=== PATIENT | male | born 1965 | race Caucasian/White ===

== ENCOUNTER 2021-11-07 19:48 | Inpatient (IN) | payer OTHER, SELFPAY ==
--- NOTE | ~2021-11-07 | CT_ITS ---
EXAMINATION: CT HEAD WITHOUT CONTRAST CLINICAL INFORMATION: Status post fall backwards. COMPARISON: None TECHNIQUE: Contiguous axial imaging was performed from the skull base to vertex without intravenous administration of contrast. This CT examination was performed using dose optimization techniques as appropriate, variously including the following: *Automated exposure control *Adjustment of mA and/or kV according to patient size (this includes techniques or standardized protocols for targeted exams where dose is matched to indication/reason for exam; i.e. extremities or head) *Use of iterative reconstruction technique DLP: 770 mGy-cm FINDINGS: There is no evidence of acute intracranial hemorrhage or territorial infarction. No abnormal mass effect or midline shift is seen. Patten to white matter differentiation is well preserved. No extra-axial fluid collections are identified. The ventricles are normal in size. There is no abnormal attenuation within the brain parenchyma. The osseous structures and soft tissues are normal. The mastoid air cells are well aerated. Mild maxillary sinus mucosal thickening noted. CT/CT head/brain wo con IMPRESSION: No acute intracranial pathology.
--- NOTE | ~2021-11-07 | XR_ITS ---
EXAMINATION: XR HIP, RIGHT CLINICAL INFORMATION: Pain, fall. COMPARISON: None TECHNIQUE: Two views of the right hip. FINDINGS: No evidence of acute fractures or malalignment. Mild degenerative changes in both hips with joint space narrowing, subcortical sclerosis and osteophytes. Pelvic phleboliths. No unexpected radiopaque foreign bodies. XR/XR hip RT min 2V IMPRESSION: No acute fractures or malalignment.
--- NOTE | ~2021-11-07 | XR_ITS ---
EXAMINATION: XR CERVICAL SPINE CLINICAL INFORMATION: Pain. Question fall. COMPARISON: None TECHNIQUE: 3 views of the cervical spine were obtained. FINDINGS: There are no prevertebral soft tissue or bony abnormalities demonstrated. No compression fractures or subluxations are identified. Alignment is maintained at the atlanto-axial articulation. The disc spaces are preserved. Small multilevel endplate osteophytes.. The prevertebral soft tissues are normal. The foramina are patent. XR/XR cervical spine 3V IMPRESSION: No fracture or malalignment. Mild degenerative changes.
--- NOTE | ~2021-11-07 | XR_ITS ---
EXAMINATION: X-RAY LEFT SHOULDER X-RAY LEFT HUMERUS X-RAY LEFT FOREARM CLINICAL INFORMATION: Pain, fall. COMPARISON: None. TECHNIQUE: 3 views of the left shoulder. 2 views of the left humerus. 2 views of the left forearm. FINDINGS: Left shoulder: No acute fractures or malalignment. The acromioclavicular joint is maintained. The coracohumeral interval is within normal limits. Mild degenerative osteoarthritis of the acromioclavicular joint and small enthesophytes at the insertion site of the supraspinatus muscle. Left humerus: No acute fractures or malalignment. Left forearm: No acute fractures or malalignment. Degenerative osteoarthritis of the radiocarpal joint and first carpometacarpal articulation. No unexpected foreign bodies. XR/XR humerus LT IMPRESSION: No acute fractures or malalignment within the imaged left upper extremity.
--- NOTE | ~2021-11-07 | MR_ITS ---
MR BRAIN WITHOUT AND WITH CONTRAST CLINICAL INFORMATION: Cognitive decline. Fogginess and weakness. COMPARISON: Head CT 12/22/2021. TECHNIQUE: Multiplanar, multisequence MRI of the brain was obtained before and after the intravenous administration of 10 mL Gadavist. FINDINGS: There is no pathologic intracranial enhancement. There is mild chronic microangiopathy. There is no hydrocephalus, extra-axial surface collection, or herniation. The major flow voids at the skull base are preserved. There is no acute infarct on diffusion-weighted imaging. There is no intracranial hemorrhage on the gradient recalled echo acquisition. The midline structures are normal. The cerebellar tonsils are normally positioned. The cerebellum and brainstem are normal. The craniocervical junction is normal. Osseous marrow signal intensity is homogenous. The visualized soft tissues are unremarkable. Mild mucosal thickening within the right maxillary sinus and left maxillary sinus. Small retention cysts within the left maxillary sinus and mild mucosal thickening within the ethmoid air cells bilaterally. MR/MR head/brain wo/w con IMPRESSION: No acute intracranial findings. No acute infarcts. There is mild chronic microangiopathy. No pathologic enhancement.
--- NOTE | ~2021-11-07 | XR_ITS ---
EXAMINATION: XR FOOT, LEFT CLINICAL INFORMATION: Unable to walk due to pain. Edema. COMPARISON: None TECHNIQUE: AP, lateral, and oblique views of the left foot. FINDINGS: There is no evidence of acute fracture. No malalignment. Joint spaces are maintained. No ankle joint effusion. The soft tissues appear unremarkable. Tiny hypertrophic spurring of the Achilles insertion to the calcaneus. XR/XR foot LT 2V IMPRESSION: Tiny Achilles heel spur. Otherwise unremarkable appearance of the left foot.
--- NOTE | ~2021-11-07 | XR_ITS ---
EXAMINATION: XR HAND, LEFT CLINICAL INFORMATION: Evaluate for foreign body COMPARISON: None TECHNIQUE: PA, lateral, and oblique views of the left hand. FINDINGS: No soft tissue foreign body is seen. There may be evidence of old trauma to the distal tuft of the second finger. No acute fracture or dislocation is seen. Joint spaces are normal. XR/XR hand LT 2V IMPRESSION: No soft tissue foreign body seen.
--- NOTE | ~2021-11-07 | FL_ITS ---
EXAMINATION: FL GUIDED LUMBAR PUNCTURE CLINICAL INFORMATION: Atypical neural and psychiatric symptoms. COMPARISON: None TECHNIQUE: Following explaining fluoroscopy-guided lumbar puncture procedure, benefits and risk, a written consent was obtained. Patient was placed prone on fluoroscopy table and low back area was cleaned and draped in usual sterile manner. 1% lidocaine was injected overlying the L4-L5 disc level. A 22-gauge 3.5 inch needle was inserted from the skin intrathecally at the L4-L5 disc level. After observing fluid return, patient was placed in left lateral decubitus view and opening CSF pressure was obtained. Subsequently CSF was collected in 4 test tubes. Stylet was reintroduced into the needle and needle withdrawn. Complete hemostasis achieved at puncture site. Sterile Band-Aid applied at the puncture site. Patient tolerated procedure extremely well. FINDINGS: On preliminary PA and lateral views of lumbar spine, there is maintained lumbar lordosis. The vertebral heights, alignment and disc heights are normal. The opening CSF pressure is 5 cm of water. Approximately 10 mL of clear CSF fluid was collected in 4 test tubes and sent to lab. FLUOROSCOPY TIME: 0.9 minutes DOSE AREA PRODUCT: 13.614 uGy-m2 (microgray-meter squared) FL/FL guided lumbar puncture LP IMPRESSION: Successful ultrasound-guided lumbar puncture performed without immediate complications.
--- NOTE | ~2021-11-07 | XR_ITS ---
EXAMINATION: X-RAY LEFT SHOULDER X-RAY LEFT HUMERUS X-RAY LEFT FOREARM CLINICAL INFORMATION: Pain, fall. COMPARISON: None. TECHNIQUE: 3 views of the left shoulder. 2 views of the left humerus. 2 views of the left forearm. FINDINGS: Left shoulder: No acute fractures or malalignment. The acromioclavicular joint is maintained. The coracohumeral interval is within normal limits. Mild degenerative osteoarthritis of the acromioclavicular joint and small enthesophytes at the insertion site of the supraspinatus muscle. Left humerus: No acute fractures or malalignment. Left forearm: No acute fractures or malalignment. Degenerative osteoarthritis of the radiocarpal joint and first carpometacarpal articulation. No unexpected foreign bodies. XR/XR forearm LT 2V IMPRESSION: No acute fractures or malalignment within the imaged left upper extremity.
--- NOTE | ~2021-11-07 | FL_ITS ---
EXAMINATION: FL BARIUM SWALLOW CLINICAL INFORMATION: Difficulty swallowing. Dysphagia and choking sensation. COMPARISON: None TECHNIQUE: Barium swallow examination is performed using fluoroscopic evaluation in addition to multiple fluoroscopic spot views. The patient is imaged both upright and prone and using both thick and thin sulfate along with effervescent granules. Fluoroscopy time: 3.1 minutes DAP: 13.341 Gycm2 Images: 60 FINDINGS: Following oral administration of thick barium, thin barium and barium coated turkey there is normal propagation of bolus from the oral cavity through the pharynx, esophagus into stomach without any evidence of laryngeal penetration or aspiration. There is no obstruction either. There is no extrinsic infarction. There are occasional secondary and tertiary peristalsis seen with solid food. The gastroesophageal junction is patent. FL/FL barium swallow IMPRESSION: Unremarkable barium swallow in upright and supine position. Occasional secondary and tertiary peristalsis seen in mid and distal esophagus with solid foot but no obstruction..
--- NOTE | ~2021-11-07 | XR_ITS ---
EXAMINATION: X-RAY LEFT SHOULDER X-RAY LEFT HUMERUS X-RAY LEFT FOREARM CLINICAL INFORMATION: Pain, fall. COMPARISON: None. TECHNIQUE: 3 views of the left shoulder. 2 views of the left humerus. 2 views of the left forearm. FINDINGS: Left shoulder: No acute fractures or malalignment. The acromioclavicular joint is maintained. The coracohumeral interval is within normal limits. Mild degenerative osteoarthritis of the acromioclavicular joint and small enthesophytes at the insertion site of the supraspinatus muscle. Left humerus: No acute fractures or malalignment. Left forearm: No acute fractures or malalignment. Degenerative osteoarthritis of the radiocarpal joint and first carpometacarpal articulation. No unexpected foreign bodies. XR/XR shoulder LT min 2V IMPRESSION: No acute fractures or malalignment within the imaged left upper extremity.
[2021-11-07 21:18] VITALS: BP 110/75; PULSE 118; RESP 18; TEMP 37.2; O2SAT 97
--- NOTE | 2021-11-08 01:11 | PC.ADMIT ---
Patient Gerry Guido is admitted to [facility] at 21:01 on a Section 12B as a Direct Admit from [facility]. Patient was initially presented with a CV in [facility], but refused to sign to due confusion and paranoid thought content. Additionally, Patient was unable to sign admission paperwork and releases due to the same. Per [facility] Crisis report, Gerry initially presented to [facility] ED after receiving a call that he had a positive blood culture after being discharged from [facility]. He was medically admitted on 10/29/21. Gerry was being followed by [facility] due to anxiety, loss of appetite and irrational thoughts. Per [facility], Gerry presents from depressed, barely able to formulate a thought (Yesterday) to [place] (Today). Gerry's reported that his symptoms began about 3 months ago when he turned 56, the age at which his mother was diagnosed with [esophageal cancer] Gerry refused to follow through with recommended endoscopy, what if I had cancer? 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 Patient was seen three times at [facility] due to the wound on Left Hand, Index Finger. [facility] reports note Patient was initially admitted to the hospital 10/26/21 because of left index finger infection. Patient worked with his car without gloves last week, afterwards noticed a blister on his left index finger. The blister was initially drained in the ER 10/25/21. Patient then had I&D in the OR, which found the lesion was a superficial abscess. Patient was discharged yesterday with blood culture suggesting contaminant after 48 hours. However, blood culture resulted came back positive for Moraxella Catarrhalis. Patient was called by his attending physician, Dr. Gannon, to come back for further evaluation and treatment and readmitted again on October 29, 2021. Positive blood culture growing Moraxella as well as Group B strep and Coag Negative Staph in a Wound to Patient's Left Index Finger. Initially placed on IV Ceftriaxone but then transitioned to oral augmentin 875mg BID for a total of 14 days (Last Day 11/12/21). [facility] Dressing Recommendations: Cleanse with NSS, Cover with adaptic, covered with aquacel ag, covered with 2x2, wrap with Kerlix. Change Q48 and PRN. Additional [facility] notes: Patient is very vague in his complaints, he denies fever chills night sweats. Complains that finger still feels sore and tender to palpation. Main complaint inability to swallow solid food, he is also unable to swallow any pills including antibiotics he was giving. He was supposed to have evaluation for his dysphagia back in September but did not go. He also reports 70 pound weight loss since the summer. [facility] Speech Evaluation Notes: Pt. with no overt/subtle s/s aspiration, no globus/sternal pressure with regular/thin trials, etc... Recommend GI consult and possible UGI series to further assess severe GI issues reported, 70 lb. weight loss. Upright for 30-45 minutes after meals. Patient is placed on 15 minute checks and oriented to unit.
[2021-11-08] MEDS: Amoxicillin/Potassium Clav 875 MG TABLET PO ×3 (01:13→20:32)
[2021-11-08 06:00] VITALS: BP 118/65; PULSE 93; RESP 18; TEMP 36.8; O2SAT 98
[2021-11-08 08:37] LABS: MANUAL DIFF FLAG NO
[2021-11-08 08:41] LABS: Basophils Percent Auto 0.4 % (0-2); Eosinophils Absolute Auto 0.2 X10*3/uL (0.0-0.4); Eosinophils Percent Auto 3.5 % (0-4); Hematocrit 40.8 % (42.0-52.0); Hemoglobin 13.7 g/dl (14.0-18.0); Imm Gran Abs Auto 0.01 X10*3/uL (0.00-0.03); Imm Gran Pct Auto 0.1 % (0.0-0.4); Lymphocytes Absolute Auto 1.5 X10*3/uL (1.2-4.9); Lymphocytes Percent Auto 21.7 % (20-40); Mean Corpuscular HGB Conc 33.6 g/dl (31.0-36.0); Mean Corpuscular Hemoglobin 29.1 pg (27.0-33.0); Mean Corpuscular Volume 86.6 fL (80.0-98.0); Mean Platelet Volume 9.5 fL (9.4-12.4); Monocytes Absolute Auto 0.7 X10*3/uL (0.1-1.2); Monocytes Percent Auto 9.5 % (2-11); Neutrophils Absolute Auto 4.4 x10*3/uL (2.0-8.3); Neutrophils Percent Auto 64.8 % (45-73); Platelet Count 239 X10*3/uL (160-400); Red Blood Count 4.71 X10*6/uL (4.60-5.80); Red Cell Distribution Width 14.4 % (11.0-16.0); White Blood Count 6.8 X10*3/uL (4.8-10.8)
[2021-11-08 08:54] LABS: D Dimer High Sensitivity 165 NG/ML
[2021-11-08] MEDS: Sucralfate 1 GM TABLET PO ×3 (08:59→20:32)
[2021-11-08] MEDS: Omeprazole 40 MG CAPSULE.DR PO (08:59)
[2021-11-08 09:00] LABS: Estimated Average Glucose 103 mg/dL; Hemoglobin A1c % 5.2 %
[2021-11-08 09:02] LABS: Alanine Aminotransferase 33 U/L (0-40); Albumin Level 4.1 g/dL (3.5-5.0); Alkaline Phosphatase 63 U/L (39-117); Anion Gap 11 (12-20); Aspartate Amino Transferase 16 U/L (5-37); Bilirubin Total 1.1 mg/dL (0.0-1.0); Blood Urea Nitrogen 18 mg/dL (9-16); Calcium 9.5 mg/dL (8.4-10.2); Carbon Dioxide 32 mmol/L (22-29); Chloride 103 mmol/L (96-108); Cholesterol 142 mg/dL; Estimated Glomerular Filt Rate > 60; Glucose Fasting 101 mg/dL (60-99); HDL Cholesterol 28 mg/dL; LDL Cholesterol Calculated 91 mg/dl; Magnesium 2.4 mg/dL (1.6-2.6); Sodium 142 mmol/L (135-145); Total Protein 6.1 g/dL (6.5-8.0); Triglycerides 117 mg/dL
[2021-11-08 09:25] LABS: Thyroid Stimulating Hormone 1.84 uIU/mL (0.32-4.0)
[2021-11-08 09:39] LABS: Vitamin B12 619 pg/mL (200-900)
--- NOTE | 2021-11-08 11:48 | PM.IMCN ---
History of Present Illness Data of Consult Service Date: 11/08/21 Primary Care Provider: Ama Kilgore DO HPI Reason for consult: Routine Medical The patients medical/surgical/social/family history is obtained from records at [facility] as the patient himself reports he has poor memory and does not know his history. The patient is a 56 yo M with a PMH outlined below. Medical consultation has been requested for routine medical H&P as part of protocol. He has been transferred from [facility]. Per [facility] Hospitalist H&P the patient was admitted there on 10/29/31 after he was found to have positive blood cultures. Previously he has presented to [facility] ED on 10/25/21 with a hand injury required OR I&D of the L index finger with a superficial abscess. His blood cultures during the initial visit were deemed contaminant and he was discharged only to be called back on the when they became positive. During the 2nd admission -- the patient was treated with broad spec IV antibotics and ultimately was transitioned to Augmetin for a total of 14 days (Last day on 11/12/21). This hospital course was complicated by psychiatric issues for which he was evaluated and ultimately inpatient psych admission was requested, hence the reason for his admission here. The patient is seen and examined in the exam room. He reports multiple issues. Reports he does not know why he is here. He thinks he has a blood clot. He reports trouble sleeping, trouble eating and trouble walking. He reports L ankle/foot pain, but denies any trauma. He does not remember the incidents which led him to being admitted for . PMH HTN Anxiety/Depression PSH Unclear if any other surgeries other than L index finger [facility] notes conflicting -- initially stating no pertinent family history but d/c summary says recommend outpatient GI work up due to family history of Malignancy SH No tobacco, alcohol or ilicit substance use history reported Review of Systems Review of Systems: negative except HPI [facility] Medical History (Updated 11/08/21 @ 12:14 by Luis Kowalski MD) Gram-negative bacteremia Social History Household Members: Spouse and Children Household Members Other:: and Three Children ages 11, 13, 15 Housing: House Do you presently have visiting nurse or other home services: No Patient Tobacco Use Status: Never used Tobacco Use of substances other than those prescribed or required for medical reasons: No Have you been hit, kicked, punched, or otherwise hurt by someone within the past year? If so, by whom?: No Do you feel safe in your current relationship?: Yes Is there a partner from a previous relationship who is making you feel unsafe now?: No Are you made to feel afraid or neglected: No Advance Directives: No Advance Directives Information Provided: No Do you have thoughts of harming others: None Do you have a plan to hurt others: No Plan Recently lost weight without trying: No Eating poorly because of decreased appetite: No Nutrition Risks: No Nutritional Risk Poor oral hygiene: No Meds Allergies Allergy/AdvReac Type Severity Reaction Status Date / Time No Known Allergies Allergy Unverified 11/07/21 21:23 Active Medications: Current Medications Acetaminophen (Acetaminophen 325 Mg Tablet) 650 mg PO Q6H PRN PRN Reason: Headache/Pain Mild Scale (1-3) Al Hydroxide/Mg Hydroxide (Magnesium Hydrox/Alum Hydrox 30 Ml Oral.Susp) 30 ml PO Q6H PRN PRN Reason: Heartburn/Nausea Amoxicillin/Clavulanate Potassium (Amoxicillin/Potassium Clav 875 Mg Tablet) 875 mg PO BID [facility] Last Admin: 11/08/21 08:58 Dose: 875 mg Documented by: Hydroxyzine HCl (Hydroxyzine Hcl 25 Mg Tablet) 25 mg PO Q6H PRN PRN Reason: Anxiety Losartan Potassium (Losartan Potassium 50 Mg Tablet) 50 mg PO DAILY [facility]; Protocol Last Admin: 11/08/21 08:59 Dose: Not Given Documented by: Magnesium Hydroxide (Milk Of Magnesia 30 Ml Oral.Susp) 30 ml PO DAILY PRN PRN Reason: Constipation Olanzapine (Olanzapine 5 Mg Tablet) 5 mg PO BEDTIME [facility] Omeprazole (Omeprazole 40 Mg Capsule.Dr) 40 mg PO DAILY@0630 [facility] Last Admin: 11/08/21 08:59 Dose: 40 mg Documented by: Sucralfate (Sucralfate 1 Gm Tablet) 1 gm PO QIDACHS [facility] Last Admin: 11/08/21 08:59 Dose: 1 gm Documented by: Trazodone HCl (Trazodone Hcl 50 Mg Tablet) 50 mg PO BEDTIME PRN PRN Reason: Insomnia Physical Exam Vital Signs and Narrative: Vital Signs: Last Vital Signs Temp 98.3 F 11/08/21 06:00 Pulse 93 11/08/21 06:00 Resp 18 11/08/21 06:00 BP 118/65 11/08/21 06:00 Pulse Ox 98 11/08/21 06:00 Const: Other: Constitutional - Awake and Alert, No apparent distress Eyes - PERRLA, EOMI Cardiovascular - S1S2, RRR, No edema Respiratory - Normal lung expansion, Normal respiratory effort, No respiratory distress, CTA bilaterally Gastrointestinal - NT / ND; +BS; No rebound or guarding - No CVA tenderness Extremities - no calf tenderness bilaterally, no swelling Musculoskeletal - LLE - no swelling of the foot or ankle; some tenderness to pain but no limitation on ROM; Skin - Warm/Dry; Dressing L index finger - C/D/I Neurological - Oriented to self and time; No focal deficit; CN 2-12 in tact b/l Psychological - Appropriate affect Results Labs CBC and Chem 7: 11/08/21 08:30 11/08/21 08:30 Labs: Laboratory Results - last 24 hr 11/08/21 11/08/21 11/08/21 08:30 08:30 08:30 MCV MCH MCHC RDW Plt Count MPV Immature Gran % (Auto) Neut % (Auto) Lymph % (Auto) [place] % (Auto) Eos % (Auto) Baso % (Auto) Lymph # (Auto) [place] # (Auto) Eos # (Auto) Baso # (Auto) Abs Immat Gran (auto) Absolute Neuts (auto) Absolute Nucleated RBC Nucleated RBC % (auto) D-Dimer High Sensitivty Anion Gap 11 L Estim Creat Clear Calc TNP Estimated GFR > 60 Fasting Glucose 101 H Estimat Average Glucose 103 Hemoglobin A1c % 5.2 Calcium 9.5 Magnesium 2.4 Total Bilirubin 1.1 H AST 16 ALT 33 Alkaline Phosphatase 63 Total Protein 6.1 L Albumin 4.1 Triglycerides 117 Cholesterol 142 LDL Cholesterol, Calc 91 HDL Cholesterol 28 Vitamin B12 619 Folate 7.0 TSH 1.84 Free T4 1.10 11/08/21 11/08/21 08:30 08:30 MCV 86.6 MCH 29.1 MCHC 33.6 RDW 14.4 Plt Count 239 MPV 9.5 Immature Gran % (Auto) 0.1 Neut % (Auto) 64.8 Lymph % (Auto) 21.7 [place] % (Auto) 9.5 Eos % (Auto) 3.5 Baso % (Auto) 0.4 Lymph # (Auto) 1.5 [place] # (Auto) 0.7 Eos # (Auto) 0.2 Baso # (Auto) 0.0 Abs Immat Gran (auto) 0.01 Absolute Neuts (auto) 4.4 Absolute Nucleated RBC 0.000 Nucleated RBC % (auto) 0.0 D-Dimer High Sensitivty 165 Anion Gap Estim Creat Clear Calc Estimated GFR Fasting Glucose Estimat Average Glucose Hemoglobin A1c % Calcium Magnesium Total Bilirubin AST ALT Alkaline Phosphatase Total Protein Albumin Triglycerides Cholesterol LDL Cholesterol, Calc HDL Cholesterol Vitamin B12 Folate TSH Free T4 Assessment and Plan (1) Routine medical exam: Status: Acute This is a 56 yo M with a PMH of HTN, recent bacteremia due to L index finger abscess after injury who is admitted to the inpatient psych unit. Medical consult requested for routine medical exam. Patient has multiple recent medical issues, all of which seem to be stable at this point in time. In regards to his bacteremia (Moraxella Catarrhalis) -- continue augmetin as you are doing. [facility] records state his end date is 11/12/21. Furthermore - dressing recommendations from them are as follows: Cleanse with NSS, cover with adaptic, covered with aquacel, covered with 2x2 an wrap with kerlix. Change q48h or PRN. 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 HTN continue losartan ? GERD / poor appetite [facility] notes indicate this to be an on going issue and recommended outpatient Gi f/u continue PPI and Carafate. Please re-consult PRN
--- NOTE | 2021-11-08 13:20 | HO.PSYCHPN ---
Subjective Subjective Reason For Visit: unspecified bipolar and related d/o Diagnostics Vital Signs (24Hr): Vital Signs - 24 hr 11/07/21 21:18 11/08/21 06:00 Temperature 98.9 F 98.3 F Pulse Rate 118 H 93 Respiratory Rate 18 18 Blood Pressure 110/75 118/65 Pulse Oximetry 97 98 Labs Results: 11/08/21 08:30 11/08/21 08:30 Labs: Laboratory Results - last 48 hr 11/08/21 11/08/21 11/08/21 08:30 08:30 08:30 WBC RBC Hgb Hct MCV MCH MCHC RDW Plt Count MPV Immature Gran % (Auto) Neut % (Auto) Lymph % (Auto) [place] % (Auto) Eos % (Auto) Baso % (Auto) Lymph # (Auto) [place] # (Auto) Eos # (Auto) Baso # (Auto) Abs Immat Gran (auto) Absolute Neuts (auto) Absolute Nucleated RBC Nucleated RBC % (auto) D-Dimer High Sensitivty Sodium 142 Potassium 4.0 Chloride 103 Carbon Dioxide 32 H Anion Gap 11 L BUN 18 H Creatinine 1.13 Estim Creat Clear Calc TNP Estimated GFR > 60 Fasting Glucose 101 H Estimat Average Glucose 103 Hemoglobin A1c % 5.2 Calcium 9.5 Magnesium 2.4 Total Bilirubin 1.1 H AST 16 ALT 33 Alkaline Phosphatase 63 Total Protein 6.1 L Albumin 4.1 Triglycerides 117 Cholesterol 142 LDL Cholesterol, Calc 91 HDL Cholesterol 28 Vitamin B12 619 Folate 7.0 TSH 1.84 Free T4 1.10 11/08/21 11/08/21 08:30 08:30 WBC 6.8 RBC 4.71 Hgb 13.7 L Hct 40.8 L MCV 86.6 MCH 29.1 MCHC 33.6 RDW 14.4 Plt Count 239 MPV 9.5 Immature Gran % (Auto) 0.1 Neut % (Auto) 64.8 Lymph % (Auto) 21.7 [place] % (Auto) 9.5 Eos % (Auto) 3.5 Baso % (Auto) 0.4 Lymph # (Auto) 1.5 [place] # (Auto) 0.7 Eos # (Auto) 0.2 Baso # (Auto) 0.0 Abs Immat Gran (auto) 0.01 Absolute Neuts (auto) 4.4 Absolute Nucleated RBC 0.000 Nucleated RBC % (auto) 0.0 D-Dimer High Sensitivty 165 Sodium Potassium Chloride Carbon Dioxide Anion Gap BUN Creatinine Estim Creat Clear Calc Estimated GFR Fasting Glucose Estimat Average Glucose Hemoglobin A1c % Calcium Magnesium Total Bilirubin AST ALT Alkaline Phosphatase Total Protein Albumin Triglycerides Cholesterol LDL Cholesterol, Calc HDL Cholesterol Vitamin B12 Folate TSH Free T4 Medications Medications Current Medications Acetaminophen (Acetaminophen 325 Mg Tablet) 650 mg PO Q6H PRN PRN Reason: Headache/Pain Mild Scale (1-3) Al Hydroxide/Mg Hydroxide (Magnesium Hydrox/Alum Hydrox 30 Ml Oral.Susp) 30 ml PO Q6H PRN PRN Reason: Heartburn/Nausea Amoxicillin/Clavulanate Potassium (Amoxicillin/Potassium Clav 875 Mg Tablet) 875 mg PO BID [facility] Last Admin: 11/08/21 08:58 Dose: 875 mg Documented by: Hydroxyzine HCl (Hydroxyzine Hcl 25 Mg Tablet) 25 mg PO Q6H PRN PRN Reason: Anxiety Losartan Potassium (Losartan Potassium 50 Mg Tablet) 50 mg PO DAILY [facility]; Protocol Last Admin: 11/08/21 08:59 Dose: Not Given Documented by: Magnesium Hydroxide (Milk Of Magnesia 30 Ml Oral.Susp) 30 ml PO DAILY PRN PRN Reason: Constipation Olanzapine (Olanzapine 5 Mg Tablet) 5 mg PO BEDTIME [facility] Omeprazole (Omeprazole 40 Mg Capsule.Dr) 40 mg PO DAILY@0630 [facility] Last Admin: 11/08/21 08:59 Dose: 40 mg Documented by: Sucralfate (Sucralfate 1 Gm Tablet) 1 gm PO QIDACHS [facility] Last Admin: 11/08/21 12:40 Dose: Not Given Documented by: Trazodone HCl (Trazodone Hcl 50 Mg Tablet) 50 mg PO BEDTIME PRN PRN Reason: Insomnia Allergies Allergies Allergy/AdvReac Type Severity Reaction Status Date / Time No Known Allergies Allergy Unverified 11/07/21 21:23 Assessment & Plan Assessment & Plan (1) Routine medical exam: Status: Acute Code(s): Z00.00 - Encounter for general adult medical examination without abnormal findings Assessment and Plan: This is a 56 yo M with a PMH of HTN, recent bacteremia due to L index finger abscess after injury who is admitted to the inpatient psych unit. Medical consult requested for routine medical exam. Patient has multiple recent medical issues, all of which seem to be stable at this point in time. In regards to his bacteremia (Moraxella Catarrhalis) -- continue augmetin as you are doing. [facility] records state his end date is 11/12/21. Furthermore - dressing recommendations from them are as follows: Cleanse with NSS, cover with adaptic, covered with aquacel, covered with 2x2 an wrap with kerlix. Change q48h or PRN. -- Can have registered nurse renal see the patient if needed. HTN continue losartan ? GERD / poor appetite [facility] notes indicate this to be an on going issue and recommended outpatient Gi f/u continue PPI and Carafate. Please re-consult PRN I spent minutes with the patient and/or on the patient floor today, greater than?50% of which was spent counseling/coordinating care.
--- NOTE | 2021-11-08 13:55 | PC.NURSE ---
Wound assessment completed. Patient has a healing abscess that was previously surgical drained on the left lateral index finger and a closed drained blister to base of same finger. Xeroform was applied to wounds and covered with gauze and tape. No other skin issues noted at this time.
[2021-11-08 18:00] VITALS: BP 127/68; PULSE 92; RESP 16; TEMP 36.7; O2SAT 100
[2021-11-08] MEDS: hydrOXYzine HCL 25 MG TABLET PO (20:32)
[2021-11-08] MEDS: OLANZapine 5 MG TABLET PO (20:32)
--- NOTE | 2021-11-08 22:15 | P.HPPS_ITS ---
HPI Date of Service: 11/08/21 Chief Complaint: unspecified bipolar and related d/o Sources of Information: patient interviewed, chart reviewed and crisis/core team assessment reviewed HPI Subjective Notes: Loera Warning and Section 12B Healthcare Proxy: No Guardianship: No Medical Problems Affecting Mental Status: No Narrative: Gerry is a 56 y.o. Male who does not have a previous psych history, presenting with a new onset of somatic delusions. Pt initially presented to [facility] on 10/29/21 after receiving a call by internal medicine for positive blood culture results from 10/25/21 due positive finding of Moraxella catarrhalis, consistent with wound to the left index finger, which then continued to grow into streptococcus. He was admitted to internal medicine for evaluation, management of bacteremia, and infectious disease consultation. He was started on IV antibiotics, had incision and drainage of abscess. Reportedly, pt presented as bizarre, perseverative, and with thought blocking during admission, stated he felt he got the infection from putting his finger in his mouth to clean his teeth. Pt reported wt loss due to issues with swallowing and fear of contamination, prefers bottled water and sealed food (started on ensure at [facility]). Per hospital records, on 11/01, pt presented as ?manic,? hyperverbal, and reported racing thoughts and hyposomnia. Per psych consult, ?the change in patient?s presentation from depressed, barely able to formulate a thought (yesterday) to [place] (today) was drastic.?? Per [facility] crisis eval on 11/06/21, pt told blayne that ?he was much better last week, however, he stated that he feels he is getting worse and less talkative.? Per pt?s , he has been decompensating x 3 mo after he turned 56 (this was the age his mother was diagnosed with esophageal cancer and she subsequently ). He has had a decrease in ADLs. Pt has been losing wt due to decreased PO intake, appears to have paranoia about food and somatic complaints of difficulty swallowing, however he refused to follow through with pre-op for endoscopy, and when asked about this pt stated what if I had cancer? I evaluated the pt this afternoon and upon interview he reports he is ?here for a psych eval.? Pt is vague throughout interview, often replies to questions with ?I dont know.? When asked about sleep quality, pt says he is not sure. Daytime energy is ?low.? Pt has multiple somatic complaints, says his L foot is ?killing me? and ?I cant really walk now.? Of note, pt has non-pitting edema, however no erythema, d dimer negative. When asked about his mood, pt replies ?I dont know, its a good question. I?m just thrilled to be here [says this sarcastically].? When asked about depression and anxiety sx, pt shrugs. He denies hallucinations or paranoia. When asked about concerns or questions, pt states ?this is a weird place to be, not having a place to be.? Appetite is ?eh,? says he has difficulty swallowing and has ?acid coming up.? Pt is perseverative on how long he will be ?committed? to the hospital and asks about when he will be ?filed on.? He denies SI/SIB/HI upon inquiry and says he feels safe.? Past Psychiatric History: -Denies hx of IPLOC, CCS/ respite, PHP, or OP psych t reatment. -Past meds: wellbutrin (took 2 months), then lexapro added (took for 1 month); both prescribed by PCP and pt reported lack of benefit, discontinued per [facility] psych consult. Depakote 500 mg BID (started per psych consult at [facility], ultimately switched to zydis 5 mg QHS due to increased AST and ALT). Ativan 1 mg PRN (prescribed by PCP with good effect). Medical Evaluation Reviewed: Hospitalist Jeanine Pending [facility] Medical History (Updated 11/08/21 @ 22:47 by Gia Hurtado NP) Gram-negative bacteremia Narrative: -Per [facility] discharge, pt has had difficulty swallowing, GERD, and wt loss, which was suspected to be from anxiety, however may benefit from further GI workup given family history of malignancy (mother of esophageal cancer).? -HTN, stable with medication -EKG 11/07/21 showed NSR, QTc 433, T wave abnormality, consider inferior ischemia, anterolateral ischemia.? -PCP: Dr. Ama Raineyakosua. Family History: -Sister: says she has ?something? in regards to psych diagnosis, had adverse reaction to lexapro. Social History: -Pt lives with his and 3 children in [place]. He has been for 20 yrs. He has 4 children, ages 11, 13, 15 and an adult son who lives in [place]. -Pt served in the [employer]. He is currently unemployed. Substance History: -Utox negative, denies alcohol abuse Trauma History: -Denies Diagnostics Vital Signs (24Hr): Vital Signs - 24 hr 11/08/21 06:00 11/08/21 18:00 Temperature 98.3 F 98.1 F Pulse Rate 93 92 Respiratory Rate 18 16 Blood Pressure 118/65 127/68 Pulse Oximetry 98 100 Labs Results: 11/08/21 08:30 11/08/21 08:30 Labs: Laboratory Results - last 48 hr 11/08/21 11/08/21 11/08/21 08:30 08:30 08:30 WBC RBC Hgb Hct MCV MCH MCHC RDW Plt Count MPV Immature Gran % (Auto) Neut % (Auto) Lymph % (Auto) [place] % (Auto) Eos % (Auto) Baso % (Auto) Lymph # (Auto) [place] # (Auto) Eos # (Auto) Baso # (Auto) Abs Immat Gran (auto) Absolute Neuts (auto) Absolute Nucleated RBC Nucleated RBC % (auto) D-Dimer High Sensitivty Sodium 142 Potassium 4.0 Chloride 103 Carbon Dioxide 32 H Anion Gap 11 L BUN 18 H Creatinine 1.13 Estim Creat Clear Calc TNP Estimated GFR > 60 Fasting Glucose 101 H Estimat Average Glucose 103 Hemoglobin A1c % 5.2 Calcium 9.5 Magnesium 2.4 Total Bilirubin 1.1 H AST 16 ALT 33 Alkaline Phosphatase 63 Total Protein 6.1 L Albumin 4.1 Triglycerides 117 Cholesterol 142 LDL Cholesterol, Calc 91 HDL Cholesterol 28 Vitamin B12 619 Folate 7.0 TSH 1.84 Free T4 1.10 11/08/21 11/08/21 08:30 08:30 WBC 6.8 RBC 4.71 Hgb 13.7 L Hct 40.8 L MCV 86.6 MCH 29.1 MCHC 33.6 RDW 14.4 Plt Count 239 MPV 9.5 Immature Gran % (Auto) 0.1 Neut % (Auto) 64.8 Lymph % (Auto) 21.7 [place] % (Auto) 9.5 Eos % (Auto) 3.5 Baso % (Auto) 0.4 Lymph # (Auto) 1.5 [place] # (Auto) 0.7 Eos # (Auto) 0.2 Baso # (Auto) 0.0 Abs Immat Gran (auto) 0.01 Absolute Neuts (auto) 4.4 Absolute Nucleated RBC 0.000 Nucleated RBC % (auto) 0.0 D-Dimer High Sensitivty 165 Sodium Potassium Chloride Carbon Dioxide Anion Gap BUN Creatinine Estim Creat Clear Calc Estimated GFR Fasting Glucose Estimat Average Glucose Hemoglobin A1c % Calcium Magnesium Total Bilirubin AST ALT Alkaline Phosphatase Total Protein Albumin Triglycerides Cholesterol LDL Cholesterol, Calc HDL Cholesterol Vitamin B12 Folate TSH Free T4 Imaging Radiology Impressions: ITS Impressions Foot X-Ray 11/08/21 17:32 IMPRESSION: Tiny Achilles heel spur. Otherwise unremarkable appearance of the left foot. Meds/Allergies Meds Home Medications Acetaminophen (Acetaminophen 325 Mg Tablet) 650 mg PO Q6H PRN PRN Reason: Headache/Pain Mild Scale (1-3) Al Hydroxide/Mg Hydroxide (Magnesium Hydrox/Alum Hydrox 30 Ml Oral.Susp) 30 ml PO Q6H PRN PRN Reason: Heartburn/Nausea Amoxicillin/Clavulanate Potassium (Amoxicillin/Potassium Clav 875 Mg Tablet) 875 mg PO BID [facility] Stop: 11/13/21 23:59 Last Admin: 11/08/21 20:32 Dose: 875 mg Documented by: Hydroxyzine HCl (Hydroxyzine Hcl 25 Mg Tablet) 25 mg PO Q6H PRN PRN Reason: Anxiety Last Admin: 11/08/21 20:32 Dose: 25 mg Documented by: Losartan Potassium (Losartan Potassium 50 Mg Tablet) 50 mg PO DAILY [facility]; Protocol Last Admin: 11/08/21 08:59 Dose: Not Given Documented by: Magnesium Hydroxide (Milk Of Magnesia 30 Ml Oral.Susp) 30 ml PO DAILY PRN PRN Reason: Constipation Olanzapine (Olanzapine 5 Mg Tablet) 5 mg PO BEDTIME [facility] Last Admin: 11/08/21 20:32 Dose: 5 mg Documented by: Omeprazole (Omeprazole 40 Mg Capsule.) 40 mg PO DAILY@0630 [facility] Last Admin: 11/08/21 08:59 Dose: 40 mg Documented by: Sucralfate (Sucralfate 1 Gm Tablet) 1 gm PO QIDACHS [facility] Last Admin: 11/08/21 20:32 Dose: 1 gm Documented by: Trazodone HCl (Trazodone Hcl 50 Mg Tablet) 50 mg PO BEDTIME PRN PRN Reason: Insomnia Allergies Allergies Allergy/AdvReac Type Severity Reaction Status Date / Time No Known Allergies Allergy Unverified 11/07/21 21:23 Mental Status Exam Mental Status Exam Narrative: A&O. In hospital attire, lying down in curled up position, normal body habitus. Poor eye contact, staring at wall, mostly attentive. No Tics or Tremors. No abnormal involuntary movements. Withdrawn, suspicious, difficult to egnage. Non-pressured speech, non-spontaneous with slowed and quiet speech. Some prolonged speech latency, no dysarthria. Mood is ?i dont know,? affect is blunted, somewhat agitated at times. Denies SI/SIB/HI upon inquiry. Denies A/VH or delusional thought content, however appears to have somatic delusions. Thoughts are perseverative, ruminative. No known cognitive or memory impairment. Insight/ Judgment poor. Assessment & Plan Assessment & Plan (1) MDD (major depressive disorder), recurrent, severe, with psychosis: Status: Acute Code(s): F33.3 - Major depressive disorder, recurrent, severe with psychotic symptoms Assessment and Plan: Pt is a 56 y.o. male who is presenting with new onset psych sx of somatic delusions, decompensation in self care, depressed mood, and perseverative thought process x 3 months. 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 He is a , unemployed, and lives with his family. No concerns for illicit substance use or alcohol abuse. Denies trauma hx. Pt is presenting with gradually worsening sx. No hx of TBI. Has had brief trials on lexapro and wellbutrin, however denies benefit. Recently started on zydis at [facility] during medical admission per psych consult. Plan: Will order foot xray due to pt complaining of pain on top of foot to the point that he cannot ambulate, has non-pitting edema. Offered Lloyd stockings, however pt declined. Says he has been mostly sedentary, encouraged him to try to walk as tolerated. Will re-order EKG, due to T wave abnormality and consult with hospitalist as needed. Will continue zyprexa 5 mg QHS to target sx of somatic delusions, bizarre thought process, and anxiety. Pt presents as internally preoccupied, depressed, withdrawn, and suspicious. Will obtain collateral information (pt is refusing to sign release for talking to his at this time).? Monitor response to medications. Monitor for safety in the milieu. Discharge on stabilization. Patient seen. Chart reviewed. Discussed with team. Obtain collateral contact info?as needed Reason for continued inpatient stay Substantial Risk for: inability to function, rapid decompensation and med/psych decompensation
[2021-11-09 06:00] VITALS: BP 125/78; PULSE 78; RESP 16; TEMP 36.1; O2SAT 98
[2021-11-09] MEDS: Sucralfate 1 GM TABLET PO ×2 (06:07→10:40)
[2021-11-09] MEDS: Omeprazole 40 MG CAPSULE.DR PO (06:07)
[2021-11-09 08:14] VITALS: BP 125/78; PULSE 78
[2021-11-09] MEDS: Amoxicillin/Potassium Clav 875 MG TABLET PO ×2 (08:14→21:05)
[2021-11-09] MEDS: Losartan Potassium 50 MG TABLET PO (08:14)
--- NOTE | 2021-11-09 15:23 | P.PNPSI_ITS ---
Subjective Subjective Date of Service: 11/09/21 Reason For Visit: unspecified bipolar and related d/o Interim History: Patient seen and discussed with team. Patient evaluated this morning and upon interview pt is found lying down in bed, under covers, staring off, poor eye contact. Says he is doing okay. Continues to report his L foot hurts a lot, I cant stand on it. Has not been wearing compression stockings. Sleep is pretty good. Energy is low. Pt disagrees that he is depressed despite endorsing sx of depression including low energy, hopelessness, avolition, anhedonia, pessimism, and irritability. Says his mood is okay and that he personally believes there are some legitimate health concerns. Says technically I have issues with my intestines, colon, and a sore foot... nothing anyone can do about that. Continues to worry about swallowing and germs. He will not shower, as he says he found blood in the shower (staff development coordinator rn aware), says I dont think this is a safe place and that even if the bathroom was thoroughly cleaned, a lot of that stuff can hang around. Discussed that pt did not follow through with recommendation for an endoscopy and he says this was due to having trouble thinking about the directions and how to do it. I spoke with pt's for collateral. She reports pt's mom from esophageal cancer in 1998 and that she was like Gerry, she never went to a doctor. 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 Thinks it also started to shanell on him his kids are getting older and everyone is doing their own thing. She denies pt having a hx of mental health issues, says he was always a little bit of a hoarder and a germaphobe. No hx of formal psychiatric treatment. She states after pt was put on lexapro and ativan by his PCP he started to have more rational conversations, however he decompensated after finding out about the infection in his finger and he became freaked out at the hospital due to staff not washing hands, worries about contamination. She denies pt has a hx of head injury, no hx of cardiac issues. Says he has always been able to attend to ADLs independently prior to this episode of depression. She reports pt obtained a head CT due to mental status changes on the Friday after Thanksgiving after obtaining a referral from his PCP, this was done at [place] [facility] and she believes it did not show any acute intracranial abnormalities. In the milieu, patient is isolative in his room, withdrawn, at times despondent. Denies SI/SIB/HI upon inquiry. Denies irritability or assaultive ideation. Medication Compliance: Yes Side effects from medications: No Attending Groups: No Review of Systems Acute medical concerns: No Medical Review of Systems: unchanged Mental Status Exam Mental Status Exam Narrative: A&O. In hospital attire, lying down in curled up position, normal body habitus. Poor eye contact, staring at wall, mostly attentive. No Tics or Tremors. No abnormal involuntary movements. Withdrawn, suspicious, difficult to egnage. Non-pressured speech, non-spontaneous with slowed and quiet speech. Some prolonged speech latency, no dysarthria. Mood is okay, affect is blunted, somewhat agitated at times. Denies SI/SIB/HI upon inquiry. Denies A/VH or delusional thought content, however appears to have somatic delusions. Thoughts are perseverative, ruminative. No known cognitive or memory impairment. Insight/ Judgment poor. Diagnostics Vital Signs (24Hr): Vital Signs - 24 hr 11/11/21 18:00 11/12/21 06:00 11/12/21 08:56 Temperature 98.2 F Pulse Rate 85 75 100 Respiratory Rate 18 Blood Pressure 136/82 118/72 137/73 Pulse Oximetry 97 Labs Results: 11/08/21 08:30 11/08/21 08:30 Imaging Radiology Impressions: ITS Impressions Foot X-Ray 11/08/21 17:32 IMPRESSION: Tiny Achilles heel spur. Otherwise unremarkable appearance of the left foot. Medications Medications Current Medications Acetaminophen (Acetaminophen 325 Mg Tablet) 650 mg PO Q6H PRN PRN Reason: Headache/Pain Mild Scale (1-3) Al Hydroxide/Mg Hydroxide (Magnesium Hydrox/Alum Hydrox 30 Ml Oral.Susp) 30 ml PO Q6H PRN PRN Reason: Heartburn/Nausea Amoxicillin/Clavulanate Potassium (Amoxicillin/Potassium Clav 875 Mg Tablet) 875 mg PO BID [facility] Stop: 11/13/21 23:59 Last Admin: 11/12/21 08:56 Dose: 875 mg Documented by: Enoxaparin Sodium (Enoxaparin Sodium 40 Mg/0.4 Ml Syringe) 40 mg SUBCUT Q24H [facility] Last Admin: 11/11/21 22:32 Dose: 40 mg Documented by: Hydroxyzine HCl (Hydroxyzine Hcl 25 Mg Tablet) 25 mg PO Q6H PRN PRN Reason: Anxiety Last Admin: 11/08/21 20:32 Dose: 25 mg Documented by: Lorazepam (Lorazepam 1 Mg Tablet) 1 mg PO Q6H PRN PRN Reason: anxiety, agitation, catotonic Losartan Potassium (Losartan Potassium 50 Mg Tablet) 50 mg PO DAILY [facility]; Protocol Last Admin: 11/12/21 08:56 Dose: 50 mg Documented by: Magnesium Hydroxide (Milk Of Magnesia 30 Ml Oral.Susp) 30 ml PO DAILY PRN PRN Reason: Constipation Olanzapine (Olanzapine 5 Mg Tablet) 5 mg PO BEDTIME [facility] Last Admin: 11/11/21 22:30 Dose: 5 mg Documented by: Omeprazole (Omeprazole 40 Mg Capsule.Dr) 40 mg PO DAILY@0630 [facility] Last Admin: 11/12/21 06:06 Dose: 40 mg Documented by: Sertraline HCl (Sertraline Hcl 25 Mg Tablet) 75 mg PO BEDTIME [facility] Last Admin: 11/11/21 22:31 Dose: 75 mg Documented by: Sucralfate (Sucralfate 1 Gm Tablet) 1 gm PO QIDACHS [facility] Last Admin: 11/12/21 08:56 Dose: 1 gm Documented by: Trazodone HCl (Trazodone Hcl 50 Mg Tablet) 50 mg PO BEDTIME PRN PRN Reason: Insomnia Allergies Allergies Allergy/AdvReac Type Severity Reaction Status Date / Time No Known Allergies Allergy Unverified 11/07/21 21:23 Assessment & Plan Assessment & Plan (1) MDD (major depressive disorder), recurrent, severe, with psychosis: Status: Acute Code(s): F33.3 - Major depressive disorder, recurrent, severe with psychotic symptoms Assessment and Plan: Pt is a 56 y.o. male who is presenting with new onset psych sx of somatic delusions, decompensation in self care, depressed mood, and perseverative thought process x 3 months. 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 He is a , unemployed, and lives with his family. No concerns for illicit substance use or alcohol abuse. Denies trauma hx. Pt is presenting with gradually worsening sx. No hx of TBI. Has had brief trials on lexapro and wellbutrin, however denies benefit. Recently started on zydis at [facility] during medical admission per psych consult. Plan: Will order foot xray due to pt complaining of pain on top of foot to the point that he cannot ambulate, has non-pitting edema. Offered Lloyd stockings, however pt declined. Says he has been mostly sedentary, encouraged him to try to walk as tolerated. Will re-order EKG, due to T wave abnormality and consult with hospitalist as needed. Will continue zyprexa 5 mg QHS to target sx of somatic delusions, bizarre thought process, and anxiety. Pt presents as internally preoccupied, depressed, withdrawn, and suspicious. Will obtain collateral information (pt is refusing to sign release for talking to his at this time).? 11/09: Will start start sertraline 50 mg QHS to target sx of OCD with poor insight, depression. Will re-start ativan 1 mg Q6H PRN, as reports this was helpful for pt and he became more responsive on ativan. Monitor response to medications. Monitor for safety in the milieu. Discharge on stabilization. Patient seen. Chart reviewed. Discussed with team. Obtain collateral contact info?as needed I spent minutes with the patient and/or on the patient floor today, greater than?50% of which was spent counseling/coordinating care. Reason for contiued inpatient stay Substantial Risk for: inability to function, rapid decompensation and med/psych decompensation
[2021-11-09 17:23] VITALS: BP 128/70; PULSE 69
[2021-11-09] MEDS: OLANZapine 5 MG TABLET PO (21:05)
[2021-11-09] MEDS: Sertraline HCL 50 MG TABLET PO (21:05)
--- NOTE | 2021-11-10 | ECG_ITS ---
Test Reason : T wave abnormality Blood Pressure : / mmHG Vent. Rate : 082 BPM Atrial Rate : 082 BPM P-R Int : 132 ms QRS Dur : 080 ms QT Int : 388 ms P-R-T Axes : 039 065 059 degrees QTc Int : 453 ms Normal sinus rhythm Nonspecific ST and T wave abnormality No previous ECGs available Referred By: Gia Hurtado Electronically Signed By:DIOGO GANDHI
[2021-11-10] MEDS: Enoxaparin Sodium 40 MG/0.4 ML SYRINGE SUBCUT ×2 (00:07→21:27)
[2021-11-10 06:00] VITALS: BP 119/73; PULSE 76; TEMP 36.4; O2SAT 97
[2021-11-10] MEDS: Omeprazole 40 MG CAPSULE.DR PO (06:45)
[2021-11-10] MEDS: Sucralfate 1 GM TABLET PO ×4 (08:29→20:49)
[2021-11-10] MEDS: Amoxicillin/Potassium Clav 875 MG TABLET PO ×2 (08:29→20:49)
[2021-11-10 08:30] VITALS: BP 119/73; PULSE 76
[2021-11-10] MEDS: Losartan Potassium 50 MG TABLET PO (08:30)
--- NOTE | 2021-11-10 10:35 | P.PNPSI_ITS ---
Subjective Subjective Date of Service: 11/10/21 Reason For Visit: unspecified bipolar and related d/o Interim History: Patient seen and discussed with team. Patient evaluated this morning and upon interview pt reports his finger is feeling okay, RN has been changing the dressing. Denies adverse effects or SE on zoloft. Continues to report L foot pain, thinks he has blood clotting veronica pite reassuring him that d dimer on 11/08 was wnl. Says he is sort of eating and he is able to sleep at night. During the day, he stays in bed awake, lying here. Lovenox was started per recommendation of hospitalist last night. Pt doesnt feel he can walk around due to pain and believing there is something wrong with him medically. Denies SOB, denies chest pain. In the milieu, patient is isolative and withdrawn in behavior. Denies SI/SIB/HI upon inquiry. Denies irritability or assaultive ideation. Says he feels safe. Medication Compliance: Yes Side effects from medications: No Attending Groups: No Review of Systems Acute medical concerns: No Medical Review of Systems: unchanged Mental Status Exam Mental Status Exam Narrative: A&O. In hospital attire, lying down in curled up position, normal body habitus. Poor eye contact, staring at wall, mostly attentive. No Tics or Tremors. No abnormal involuntary movements. Withdrawn, suspicious, difficult to egnage. Non-pressured speech, non-spontaneous with slowed and quiet speech. Some prolonged speech latency, no dysarthria. Mood is fine, affect is blunted, somewhat agitated/ sarcastic at times, laughing incongruently (nervous? laughter?). Denies SI/SIB/HI upon inquiry. Denies A/VH or delusional thought content, however appears to have somatic delusions. Thoughts are perseverative, ruminative. No known cognitive or memory impairment. Insight/ Judgment poor. Diagnostics Vital Signs (24Hr): Vital Signs - 24 hr 11/11/21 18:00 11/12/21 06:00 11/12/21 08:56 Temperature 98.2 F Pulse Rate 85 75 100 Respiratory Rate 18 Blood Pressure 136/82 118/72 137/73 Pulse Oximetry 97 Labs Results: 11/08/21 08:30 11/08/21 08:30 Imaging Radiology Impressions: ITS Impressions Foot X-Ray 11/08/21 17:32 IMPRESSION: Tiny Achilles heel spur. Otherwise unremarkable appearance of the left foot. Medications Medications Current Medications Acetaminophen (Acetaminophen 325 Mg Tablet) 650 mg PO Q6H PRN PRN Reason: Headache/Pain Mild Scale (1-3) Al Hydroxide/Mg Hydroxide (Magnesium Hydrox/Alum Hydrox 30 Ml Oral.Susp) 30 ml PO Q6H PRN PRN Reason: Heartburn/Nausea Amoxicillin/Clavulanate Potassium (Amoxicillin/Potassium Clav 875 Mg Tablet) 875 mg PO BID [facility] Stop: 11/13/21 23:59 Last Admin: 11/12/21 08:56 Dose: 875 mg Documented by: Enoxaparin Sodium (Enoxaparin Sodium 40 Mg/0.4 Ml Syringe) 40 mg SUBCUT Q24H [facility] Last Admin: 11/11/21 22:32 Dose: 40 mg Documented by: Hydroxyzine HCl (Hydroxyzine Hcl 25 Mg Tablet) 25 mg PO Q6H PRN PRN Reason: Anxiety Last Admin: 11/08/21 20:32 Dose: 25 mg Documented by: Lorazepam (Lorazepam 1 Mg Tablet) 1 mg PO Q6H PRN PRN Reason: anxiety, agitation, catotonic Losartan Potassium (Losartan Potassium 50 Mg Tablet) 50 mg PO DAILY [facility]; Protocol Last Admin: 11/12/21 08:56 Dose: 50 mg Documented by: Magnesium Hydroxide (Milk Of Magnesia 30 Ml Oral.Susp) 30 ml PO DAILY PRN PRN Reason: Constipation Olanzapine (Olanzapine 5 Mg Tablet) 5 mg PO BEDTIME [facility] Last Admin: 11/11/21 22:30 Dose: 5 mg Documented by: Omeprazole (Omeprazole 40 Mg Capsule.Dr) 40 mg PO DAILY@0630 [facility] Last Admin: 11/12/21 06:06 Dose: 40 mg Documented by: Sertraline HCl (Sertraline Hcl 25 Mg Tablet) 75 mg PO BEDTIME [facility] Last Admin: 11/11/21 22:31 Dose: 75 mg Documented by: Sucralfate (Sucralfate 1 Gm Tablet) 1 gm PO QIDACHS [facility] Last Admin: 11/12/21 08:56 Dose: 1 gm Documented by: Trazodone HCl (Trazodone Hcl 50 Mg Tablet) 50 mg PO BEDTIME PRN PRN Reason: Insomnia Allergies Allergies Allergy/AdvReac Type Severity Reaction Status Date / Time No Known Allergies Allergy Unverified 11/07/21 21:23 Assessment & Plan Assessment & Plan (1) MDD (major depressive disorder), recurrent, severe, with psychosis: Status: Acute Code(s): F33.3 - Major depressive disorder, recurrent, severe with psychotic symptoms Assessment and Plan: Pt is a 56 y.o. male who is presenting with new onset psych sx of somatic delusions, decompensation in self care, depressed mood, and perseverative thought process x 3 months. 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 He is a , unemployed, and lives with his family. No concerns for illicit substance use or alcohol abuse. Denies trauma hx. Pt is presenting with gradually worsening sx. No hx of TBI. Has had brief trials on lexapro and wellbutrin, however denies benefit. Recently started on zydis at [facility] during medical admission per psych consult. Plan: Will order foot xray due to pt complaining of pain on top of foot to the point that he cannot ambulate, has non-pitting edema. Offered Lloyd stockings, however pt declined. Says he has been mostly sedentary, encouraged him to try to walk as tolerated. Will re-order EKG, due to T wave abnormality and consult with hospitalist as needed. Will continue zyprexa 5 mg QHS to target sx of somatic delusions, bizarre thought process, and anxiety. Pt presents as internally preoccupied, depressed, withdrawn, and suspicious. Will obtain collateral information (pt is refusing to sign release for talking to his at this time).? 11/09: Will start start sertraline 50 mg QHS to target sx of OCD with poor insight, depression. Will re-start ativan 1 mg Q6H PRN, as reports this was helpful for pt and he became more responsive on ativan. 11/10: Continue sertraline 50 mg and monitor for benefit. Lovenox started per recommendation of hospitalist for DVT prevention, as pt is immobile, despondent lying down in bed. Monitor response to medications. Monitor for safety in the milieu. Discharge on stabilization. Patient seen. Chart reviewed. Discussed with team. Obtain collateral contact info?as needed I spent minutes with the patient and/or on the patient floor today, greater than?50% of which was spent counseling/coordinating care. Reason for contiued inpatient stay Substantial Risk for: inability to function, rapid decompensation and med/psych decompensation
--- NOTE | 2021-11-10 15:15 | PC.NURSE ---
Pts dressing changed on his left finger. Wound dry and intact. no drainage noted. Pt tolerated dsg change without difficulty. Patient perseverated on the fact that he was on the wrong unit for medical and should have a wound care nurse . Pt repeating , none of this is going to matter .
[2021-11-10 18:00] VITALS: BP 129/86; PULSE 68; RESP 18; TEMP 36.6; O2SAT 99
[2021-11-10] MEDS: Sertraline HCL 50 MG TABLET PO (20:48)
[2021-11-10] MEDS: OLANZapine 5 MG TABLET PO (20:49)
[2021-11-11 06:00] VITALS: BP 115/64; PULSE 89; RESP 17; TEMP 36.7; O2SAT 98
[2021-11-11] MEDS: Omeprazole 40 MG CAPSULE.DR PO (06:21)
[2021-11-11] MEDS: Sucralfate 1 GM TABLET PO ×2 (07:14→22:31)
[2021-11-11] MEDS: Losartan Potassium 50 MG TABLET PO (08:56)
[2021-11-11] MEDS: Amoxicillin/Potassium Clav 875 MG TABLET PO ×2 (08:56→22:31)
--- NOTE | 2021-11-11 16:39 | HO.PSYCHPN ---
Subjective Subjective Date of Service: 11/11/21 Reason For Visit: unspecified bipolar and related d/o Interim History: Patient seen and discussed with team. Patient evaluated this morning and upon interview pt reports he didnt eat breakfast or lunch, he is more forthcoming that he worries about contamination and prefers pre-packaged food. He is willing to trial an increase in sertraline tonight, says he feels his brain is shutting down. Pt is perseverative on worried thoughts that he will be committed to the hospital as he is on a section 12b. Says he would rather be at home, anywhere would be better than here. Continues to insist that there could be something really wrong with me and that he could have an undiscovered condition or infection. In the milieu, patient is isolative, immobile, and despondent in behavior. Denies SI/SIB/HI upon inquiry. Denies irritability or assaultive ideation however has an agitated edge during interview, at times laughs incongruently. Says he feels safe. Medication Compliance: Yes Side effects from medications: No Attending Groups: No Review of Systems Acute medical concerns: No Medical Review of Systems: unchanged Mental Status Exam Mental Status Exam Narrative: A&O. In hospital attire, lying down in curled up position, normal body habitus. Poor eye contact, staring at wall, mostly attentive. No Tics or Tremors. No abnormal involuntary movements. Withdrawn, suspicious, difficult to egnage. Non-pressured speech, non-spontaneous with slowed and quiet speech. Some prolonged speech latency, no dysarthria. Mood is okay, affect is blunted, somewhat agitated/ sarcastic at times, laughing incongruently (nervous? laughter?). Denies SI/SIB/HI upon inquiry. Denies A/VH or delusional thought content, however appears to have somatic delusions. Thoughts are perseverative, ruminative. No known cognitive or memory impairment. Insight/ Judgment poor. Diagnostics Vital Signs (24Hr): Vital Signs - 24 hr 11/11/21 18:00 11/12/21 06:00 11/12/21 08:56 Temperature 98.2 F Pulse Rate 85 75 100 Respiratory Rate 18 Blood Pressure 136/82 118/72 137/73 Pulse Oximetry 97 Labs Results: 11/08/21 08:30 11/08/21 08:30 Imaging Radiology Impressions: ITS Impressions Foot X-Ray 11/08/21 17:32 IMPRESSION: Tiny Achilles heel spur. Otherwise unremarkable appearance of the left foot. Medications Medications Current Medications Acetaminophen (Acetaminophen 325 Mg Tablet) 650 mg PO Q6H PRN PRN Reason: Headache/Pain Mild Scale (1-3) Al Hydroxide/Mg Hydroxide (Magnesium Hydrox/Alum Hydrox 30 Ml Oral.Susp) 30 ml PO Q6H PRN PRN Reason: Heartburn/Nausea Amoxicillin/Clavulanate Potassium (Amoxicillin/Potassium Clav 875 Mg Tablet) 875 mg PO BID [facility] Stop: 11/13/21 23:59 Last Admin: 11/12/21 08:56 Dose: 875 mg Documented by: Enoxaparin Sodium (Enoxaparin Sodium 40 Mg/0.4 Ml Syringe) 40 mg SUBCUT Q24H [facility] Last Admin: 11/11/21 22:32 Dose: 40 mg Documented by: Hydroxyzine HCl (Hydroxyzine Hcl 25 Mg Tablet) 25 mg PO Q6H PRN PRN Reason: Anxiety Last Admin: 11/08/21 20:32 Dose: 25 mg Documented by: Lorazepam (Lorazepam 1 Mg Tablet) 1 mg PO Q6H PRN PRN Reason: anxiety, agitation, catotonic Losartan Potassium (Losartan Potassium 50 Mg Tablet) 50 mg PO DAILY [facility]; Protocol Last Admin: 11/12/21 08:56 Dose: 50 mg Documented by: Magnesium Hydroxide (Milk Of Magnesia 30 Ml Oral.Susp) 30 ml PO DAILY PRN PRN Reason: Constipation Olanzapine (Olanzapine 5 Mg Tablet) 5 mg PO BEDTIME [facility] Last Admin: 11/11/21 22:30 Dose: 5 mg Documented by: Omeprazole (Omeprazole 40 Mg Capsule.Dr) 40 mg PO DAILY@0630 [facility] Last Admin: 11/12/21 06:06 Dose: 40 mg Documented by: Sertraline HCl (Sertraline Hcl 25 Mg Tablet) 75 mg PO BEDTIME [facility] Last Admin: 11/11/21 22:31 Dose: 75 mg Documented by: Sucralfate (Sucralfate 1 Gm Tablet) 1 gm PO QIDACHS [facility] Last Admin: 11/12/21 08:56 Dose: 1 gm Documented by: Trazodone HCl (Trazodone Hcl 50 Mg Tablet) 50 mg PO BEDTIME PRN PRN Reason: Insomnia Allergies Allergies Allergy/AdvReac Type Severity Reaction Status Date / Time No Known Allergies Allergy Unverified 11/07/21 21:23 Assessment & Plan Assessment & Plan (1) MDD (major depressive disorder), recurrent, severe, with psychosis: Status: Acute Code(s): F33.3 - Major depressive disorder, recurrent, severe with psychotic symptoms Assessment and Plan: Pt is a 56 y.o. male who is presenting with new onset psych sx of somatic delusions, decompensation in self care, depressed mood, and perseverative thought process x 3 months. 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 He is a , unemployed, and lives with his family. No concerns for illicit substance use or alcohol abuse. Denies trauma hx. Pt is presenting with gradually worsening sx. No hx of TBI. Has had brief trials on lexapro and wellbutrin, however denies benefit. Recently started on zydis at [facility] during medical admission per psych consult. Plan: Will order foot xray due to pt complaining of pain on top of foot to the point that he cannot ambulate, has non-pitting edema. Offered Lloyd stockings, however pt declined. Says he has been mostly sedentary, encouraged him to try to walk as tolerated. Will re-order EKG, due to T wave abnormality and consult with hospitalist as needed. Will continue zyprexa 5 mg QHS to target sx of somatic delusions, bizarre thought process, and anxiety. Pt presents as internally preoccupied, depressed, withdrawn, and suspicious. Will obtain collateral information (pt is refusing to sign release for talking to his at this time).? 11/09: Will start start sertraline 50 mg QHS to target sx of OCD with poor insight, depression. Will re-start ativan 1 mg Q6H PRN, as reports this was helpful for pt and he became more responsive on ativan. 11/10: Continue sertraline 50 mg and monitor for benefit. Lovenox started per recommendation of hospitalist for DVT prevention, as pt is immobile, despondent lying down in bed. 11/11: reviewed EKG. WIll increase sertraline to 75 mg and monitor for benefit. Monitor response to medications. Monitor for safety in the milieu. Discharge on stabilization. Patient seen. Chart reviewed. Discussed with team. Obtain collateral contact info?as needed I spent minutes with the patient and/or on the patient floor today, greater than?50% of which was spent counseling/coordinating care. Reason for contiued inpatient stay Substantial Risk for: inability to function, rapid decompensation and med/psych decompensation
[2021-11-11 18:00] VITALS: BP 136/82; PULSE 85
[2021-11-11] MEDS: OLANZapine 5 MG TABLET PO (22:30)
[2021-11-11] MEDS: Sertraline HCL 25 MG TABLET 75 MG PO (22:31)
[2021-11-11] MEDS: Enoxaparin Sodium 40 MG/0.4 ML SYRINGE SUBCUT (22:32)
[2021-11-12 06:00] VITALS: BP 118/72; PULSE 75; RESP 18; TEMP 36.8; O2SAT 97
[2021-11-12] MEDS: Omeprazole 40 MG CAPSULE.DR PO (06:06)
[2021-11-12 08:56] VITALS: BP 137/73; PULSE 100
[2021-11-12] MEDS: Losartan Potassium 50 MG TABLET PO (08:56)
[2021-11-12] MEDS: Amoxicillin/Potassium Clav 875 MG TABLET PO ×2 (08:56→20:38)
[2021-11-12] MEDS: Sucralfate 1 GM TABLET PO ×4 (08:56→20:38)
--- NOTE | 2021-11-12 13:24 | HO.PSYCHPN ---
Subjective Subjective Date of Service: 11/12/21 Reason For Visit: unspecified bipolar and related d/o Subjective Notes: Section 7 Healthcare Proxy: Yes Guardianship: No Medical Problems Affecting Mental Status: Yes Interim History: Gerry is seen lying in bed. He reports significant GI sx, citing his mother passed from esophageal cancer at approximately the age he is and he worries about his symptoms and overall health. He reviewed mother's suffering and loss and how he has internalized this and relates to his current symptoms. He expressed concern about civil commitment process, asking several questions about having rights taken away upon discharge, being deemed incompetent for life and losing rights. Education attempted. Concern about finger wound and becoming infected. Worries about the level of germs in a hospital environment and if he will survive exposure to these germs. 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 Education attempted. Medication Compliance: Yes Side effects from medications: No Attending Groups: No Review of Systems Acute medical concerns: No Review of Systems Gastrointestinal: Reports dyspepsia and Reports heartburn Comments: GERD- Carafate, Prilosec are ordered. Reports behavioral changes, Reports confusion and Reports memory loss Psychiatric: Reports anxiety, Reports behavioral changes, Reports change in appetite, Reports confusion, Reports depression, Reports difficulty concentrating, Reports hopelessness, Reports irritability, Reports anhedonia, Reports memory loss and Reports paranoia Mental Status Exam Mental Status Exam Patient Appearance: Fatigued Patient Orientation: Person, Place, Time and Situation Level of Consciousness: Alert Patient Behavior: Guarded, Talkative, Cooperative, Passive, Suspicious, Anxious, Resistive to Care, Avoidant, Fatigued, Distractible, Isolative and Poor Eye Contact Mood Description: Suspicious, Withdrawn and Depressed Affect Description: Flat Patient Cognition Impaired: No Ability to Follow Directions: Good Speech Pattern: Spontaneous Speech, Soft-Spoken and Delayed Memory Description: Episodic Impaired Hallucinations: None Delusions: Paranoid Ideation Perceptual Disturbances: Derealization Thought Process: Illogical, Distracted, Rumination, Evasive and Confusion Thought Content: positive for Circumstantial, positive for Perseveration, positive for Preoccupation, positive for Thought Blocking and positive for Slowed Thinking Depressive Symptoms: Increased Anxiety, Diff. Making Decisions, Difficulty Sleeping, Changes in Appetite, Sleeping More Than Usual, Significant Weight Loss, Loss of Int. in Activity, Feelings of Worthlessness, Hopelessness, Isolating-Friends/Family, Unhappiness, Increased Fatigue, Unexplained Stomach Pain, Low Self Esteem, Loss of Energy and Difficulty Concentrating Judgement: Poor Diagnostics Vital Signs (24Hr): Vital Signs - 24 hr 11/11/21 18:00 11/12/21 06:00 11/12/21 08:56 Temperature 98.2 F Pulse Rate 85 75 100 Respiratory Rate 18 Blood Pressure 136/82 118/72 137/73 Pulse Oximetry 97 Labs Results: 11/08/21 08:30 11/08/21 08:30 Imaging Radiology Impressions: ITS Impressions Foot X-Ray 11/08/21 17:32 IMPRESSION: Tiny Achilles heel spur. Otherwise unremarkable appearance of the left foot. Medications Medications Current Medications Acetaminophen (Acetaminophen 325 Mg Tablet) 650 mg PO Q6H PRN PRN Reason: Headache/Pain Mild Scale (1-3) Al Hydroxide/Mg Hydroxide (Magnesium Hydrox/Alum Hydrox 30 Ml Oral.Susp) 30 ml PO Q6H PRN PRN Reason: Heartburn/Nausea Amoxicillin/Clavulanate Potassium (Amoxicillin/Potassium Clav 875 Mg Tablet) 875 mg PO BID [facility] Stop: 11/13/21 23:59 Last Admin: 11/12/21 08:56 Dose: 875 mg Documented by: Enoxaparin Sodium (Enoxaparin Sodium 40 Mg/0.4 Ml Syringe) 40 mg SUBCUT Q24H [facility] Last Admin: 11/11/21 22:32 Dose: 40 mg Documented by: Hydroxyzine HCl (Hydroxyzine Hcl 25 Mg Tablet) 25 mg PO Q6H PRN PRN Reason: Anxiety Last Admin: 11/08/21 20:32 Dose: 25 mg Documented by: Loperamide HCl (Loperamide Hcl 2 Mg Capsule) 2 mg PO Q6H PRN PRN Reason: Diarrhea Lorazepam (Lorazepam 1 Mg Tablet) 1 mg PO Q6H PRN PRN Reason: anxiety, agitation, catotonic Losartan Potassium (Losartan Potassium 50 Mg Tablet) 50 mg PO DAILY [facility]; Protocol Last Admin: 11/12/21 08:56 Dose: 50 mg Documented by: Magnesium Hydroxide (Milk Of Magnesia 30 Ml Oral.Susp) 30 ml PO DAILY PRN PRN Reason: Constipation Olanzapine (Olanzapine 5 Mg Tablet) 5 mg PO BEDTIME [facility] Last Admin: 11/11/21 22:30 Dose: 5 mg Documented by: Omeprazole (Omeprazole 40 Mg Capsule.) 40 mg PO DAILY@0630 [facility] Last Admin: 11/12/21 06:06 Dose: 40 mg Documented by: Sertraline HCl (Sertraline Hcl 25 Mg Tablet) 75 mg PO BEDTIME [facility] Last Admin: 11/11/21 22:31 Dose: 75 mg Documented by: Sucralfate (Sucralfate 1 Gm Tablet) 1 gm PO QIDACHS [facility] Last Admin: 11/12/21 12:02 Dose: 1 gm Documented by: Trazodone HCl (Trazodone Hcl 50 Mg Tablet) 50 mg PO BEDTIME PRN PRN Reason: Insomnia Allergies Allergies Allergy/AdvReac Type Severity Reaction Status Date / Time No Known Allergies Allergy Unverified 11/07/21 21:23 Assessment & Plan Assessment & Plan (1) MDD (major depressive disorder), recurrent, severe, with psychosis: Status: Acute Code(s): F33.3 - Major depressive disorder, recurrent, severe with psychotic symptoms Assessment and Plan: Pt is a 56 y.o. male who is presenting with new onset psych sx of somatic delusions, decompensation in self care, depressed mood, and perseverative thought process x 3 months. 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 He is a , unemployed, and lives with his family. No concerns for illicit substance use or alcohol abuse. Denies trauma hx. Pt is presenting with gradually worsening sx. No hx of TBI. Has had brief trials on lexapro and wellbutrin, however denies benefit. Recently started on zydis at [facility] during medical admission per psych consult. Plan: Will order foot xray due to pt complaining of pain on top of foot to the point that he cannot ambulate, has non-pitting edema. Offered Lloyd stockings, however pt declined. Says he has been mostly sedentary, encouraged him to try to walk as tolerated. Will re-order EKG, due to T wave abnormality and consult with hospitalist as needed. Will continue zyprexa 5 mg QHS to target sx of somatic delusions, bizarre thought process, and anxiety. Pt presents as internally preoccupied, depressed, withdrawn, and suspicious. Will obtain collateral information (pt is refusing to sign release for talking to his at this time).? 11/09: Will start start sertraline 50 mg QHS to target sx of OCD with poor insight, depression. Will re-start ativan 1 mg Q6H PRN, as reports this was helpful for pt and he became more responsive on ativan. 11/10: Continue sertraline 50 mg and monitor for benefit. Lovenox started per recommendation of hospitalist for DVT prevention, as pt is immobile, despondent lying down in bed. 11/11: reviewed EKG. WIll increase sertraline to 75 mg and monitor for benefit. 11/12/21: Continue current regime. Discussed GI consult with pt. He will consider. Monitor response to medications. Monitor for safety in the milieu. Discharge on stabilization. Patient seen. Chart reviewed. Discussed with team. Obtain collateral contact info?as needed I spent 45 minutes with the patient and/or on the patient floor today, greater than?50% of which was spent counseling/coordinating care. Patient educated on: medication risk/benefits, therapeutic strategies and medical condition Informed Consent: further education needed Reason for contiued inpatient stay Substantial Risk for: inability to function, rapid decompensation and med/psych decompensation
[2021-11-12 17:51] VITALS: BP 109/61; PULSE 88; TEMP 36.7; O2SAT 98
--- NOTE | 2021-11-12 19:36 | PM.EVENT ---
Event Note Date of Service: 11/12/21 Event Note: ORTHOSTATIC CHANGES NOTED ORTHOSTATIC CHANGES NOTED MONITOR VITAL SIGNS Q.4H WHILE AWAKE ENCOURAGE FLUIDS HOLD RAVENAR
[2021-11-12] MEDS: OLANZapine 5 MG TABLET PO (20:38)
[2021-11-12] MEDS: Sertraline HCL 25 MG TABLET 75 MG PO (20:38)
[2021-11-12] MEDS: Enoxaparin Sodium 40 MG/0.4 ML SYRINGE SUBCUT (22:14)
[2021-11-12 22:31] VITALS: BP 99/55; PULSE 74
[2021-11-13 06:00] VITALS: BP 102/54; PULSE 62; RESP 16; TEMP 36.7; O2SAT 95
[2021-11-13 08:00] VITALS: BP 112/65; PULSE 88
[2021-11-13] MEDS: Omeprazole 40 MG CAPSULE.DR PO (09:26)
[2021-11-13] MEDS: Amoxicillin/Potassium Clav 875 MG TABLET PO ×2 (09:26→21:57)
[2021-11-13] MEDS: Sucralfate 1 GM TABLET PO ×4 (09:26→21:57)
--- NOTE | 2021-11-13 17:34 | P.PNPSI_ITS ---
Subjective Subjective Date of Service: 11/13/21 Reason For Visit: unspecified bipolar and related d/o Subjective Notes: Section 7 Healthcare Proxy: Yes Guardianship: No Medical Problems Affecting Mental Status: Yes Interim History: Pt experiencing vertigo. Cozaar held. Orthostasis 112/65 88 ly ing 92/64 110 standing. Encouraged fluids. Review of medical concerns. Pt still not certain if he wants GI consult-focused on finances. Discussed eval for his confusion, memory loss. Refused [facility]SE [facility]IS to get MRI results from [facility]. Discussed psychotropic medications. Agrees to increase Olazapine to 7.5 mg HS. Ruminative focus-losing competence, Section VII, having family take guardianship, being in pt on psychiatry, describes amotivation to work to improve symptoms, little hope he will get his life back and return home. Discussed with pt that we will put effort into his recovery and he will need to help. Perseverative, ruminative. Medication Compliance: Yes Side effects from medications: No Attending Groups: No Review of Systems Acute medical concerns: No Medical Review of Systems: unchanged Review of Systems Constitutional: Reports weakness Reports vertigo and Reports dizziness Cardiovascular: Reports syncope Reports behavioral changes, Reports confusion, Reports vertigo, Reports dizziness, Reports syncope, Reports memory loss and Reports weakness Psychiatric: Reports anxiety, Reports behavioral changes, Reports confusion, Reports depression, Reports difficulty concentrating, Reports hopelessness, Reports anhedonia, Reports memory loss and Reports paranoia Mental Status Exam Mental Status Exam Patient Appearance: Fatigued Patient Orientation: Person, Place, Time and Situation Level of Consciousness: Alert Patient Behavior: Guarded, Talkative, Cooperative, Passive, Suspicious, Anxious, Resistive to Care, Avoidant, Fatigued, Distractible, Isolative and Poor Eye Contact Mood Description: Suspicious, Withdrawn and Depressed Affect Description: Flat Patient Cognition Impaired: No Ability to Follow Directions: Good Speech Pattern: Spontaneous Speech, Soft-Spoken and Delayed Memory Description: Episodic Impaired Hallucinations: None Delusions: Paranoid Ideation Perceptual Disturbances: Derealization Thought Process: Illogical, Distracted, Rumination, Evasive and Confusion Thought Content: positive for Circumstantial, positive for Perseveration, positive for Preoccupation, positive for Thought Blocking and positive for Slowed Thinking Depressive Symptoms: Increased Anxiety, Diff. Making Decisions, Difficulty Sleeping, Changes in Appetite, Sleeping More Than Usual, Significant Weight Loss, Loss of Int. in Activity, Feelings of Worthlessness, Hopelessness, Isolating-Friends/Family, Unhappiness, Increased Fatigue, Unexplained Stomach Pain, Low Self Esteem, Loss of Energy and Difficulty Concentrating Judgement: Poor Diagnostics Vital Signs (24Hr): Vital Signs - 24 hr 11/12/21 17:51 11/12/21 22:31 11/13/21 06:00 Temperature 98.1 F 98.0 F Pulse Rate 88 74 62 Respiratory Rate 16 Blood Pressure 109/61 99/55 L 102/54 L Pulse Oximetry 98 95 11/13/21 08:00 Temperature Pulse Rate 88 Respiratory Rate Blood Pressure 112/65 Pulse Oximetry Labs Results: 11/08/21 08:30 11/08/21 08:30 Imaging Radiology Impressions: ITS Impressions Foot X-Ray 11/08/21 17:32 IMPRESSION: Tiny Achilles heel spur. Otherwise unremarkable appearance of the left foot. Medications Medications Current Medications Acetaminophen (Acetaminophen 325 Mg Tablet) 650 mg PO Q6H PRN PRN Reason: Headache/Pain Mild Scale (1-3) Al Hydroxide/Mg Hydroxide (Magnesium Hydrox/Alum Hydrox 30 Ml Oral.Susp) 30 ml PO Q6H PRN PRN Reason: Heartburn/Nausea Amoxicillin/Clavulanate Potassium (Amoxicillin/Potassium Clav 875 Mg Tablet) 875 mg PO BID [facility] Stop: 11/13/21 23:59 Last Admin: 11/13/21 09:26 Dose: 875 mg Documented by: Enoxaparin Sodium (Enoxaparin Sodium 40 Mg/0.4 Ml Syringe) 40 mg SUBCUT Q24H [facility] Last Admin: 11/12/21 22:14 Dose: 40 mg Documented by: Hydroxyzine HCl (Hydroxyzine Hcl 25 Mg Tablet) 25 mg PO Q6H PRN PRN Reason: Anxiety Last Admin: 11/08/21 20:32 Dose: 25 mg Documented by: Loperamide HCl (Loperamide Hcl 2 Mg Capsule) 2 mg PO Q6H PRN PRN Reason: Diarrhea Lorazepam (Lorazepam 1 Mg Tablet) 1 mg PO Q6H PRN PRN Reason: anxiety, agitation, catotonic Magnesium Hydroxide (Milk Of Magnesia 30 Ml Oral.Susp) 30 ml PO DAILY PRN PRN Reason: Constipation Olanzapine (Olanzapine 5 Mg Tablet) 5 mg PO BEDTIME [facility] Last Admin: 12/27/21 20:38 Dose: 5 mg Documented by: Omeprazole (Omeprazole 40 Mg Capsule.) 40 mg PO DAILY@0630 [facility] Last Admin: 11/13/21 09:26 Dose: 40 mg Documented by: Sertraline HCl (Sertraline Hcl 25 Mg Tablet) 75 mg PO BEDTIME [facility] Last Admin: 11/12/21 20:38 Dose: 75 mg Documented by: Sucralfate (Sucralfate 1 Gm Tablet) 1 gm PO QIDACHS [facility] Last Admin: 11/13/21 14:00 Dose: 1 gm Documented by: Trazodone HCl (Trazodone Hcl 50 Mg Tablet) 50 mg PO BEDTIME PRN PRN Reason: Insomnia Allergies Allergies Allergy/AdvReac Type Severity Reaction Status Date / Time No Known Allergies Allergy Unverified 11/07/21 21:23 Assessment & Plan Assessment & Plan (1) MDD (major depressive disorder), recurrent, severe, with psychosis: Status: Acute Code(s): F33.3 - Major depressive disorder, recurrent, severe with psychotic symptoms Assessment and Plan: Pt is a 56 y.o. male who is presenting with new onset psych sx of somatic delusions, decompensation in self care, depressed mood, and perseverative thought process x 3 months. 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 He is a , unemployed, and lives with his family. No concerns for illicit substance use or alcohol abuse. Denies trauma hx. Pt is presenting with gradually worsening sx. No hx of TBI. Has had brief trials on lexapro and wellbutrin, however denies benefit. Recently started on zydis at [facility] during medical admission per psych consult. Plan: Will order foot xray due to pt complaining of pain on top of foot to the point that he cannot ambulate, has non-pitting edema. Offered Lloyd stockings, however pt declined. Says he has been mostly sedentary, encouraged him to try to walk as tolerated. Will re-order EKG, due to T wave abnormality and consult with hospitalist as needed. Will continue zyprexa 5 mg QHS to target sx of somatic delusions, bizarre thought process, and anxiety. Pt presents as internally preoccupied, depressed, withdrawn, and suspicious. Will obtain collateral information (pt is refusing to sign release for talking to his at this time).? 11/09: Will start start sertraline 50 mg QHS to target sx of OCD with poor insight, depression. Will re-start ativan 1 mg Q6H PRN, as reports this was helpful for pt and he became more responsive on ativan. 11/10: Continue sertraline 50 mg and monitor for benefit. Lovenox started per recommendation of hospitalist for DVT prevention, as pt is immobile, despondent lying down in bed. 11/11: reviewed EKG. WIll increase sertraline to 75 mg and monitor for benefit. 11/13/21: Increase Olanzapine to 7.5 mg HS. Today pt with dysphoria, treatment resistence. Work on alliance and engaging pt in his plan of care. Monitor response to medications. Monitor for safety in the milieu. Discharge on stabilization. Patient seen. Chart reviewed. Discussed with team. Obtain collateral contact info?as needed I spent 45 minutes with the patient and/or on the patient floor today, greater than?50% of which was spent counseling/coordinating care. Patient educated on: medication risk/benefits and therapeutic strategies Informed Consent: understands and further education needed Reason for contiued inpatient stay Substantial Risk for: med/psych decompensation
[2021-11-13 21:00] VITALS: BP 144/80; PULSE 112; TEMP 36.8; O2SAT 98
[2021-11-13 21:11] VITALS: BP 144/80; PULSE 112
[2021-11-13] MEDS: OLANZapine 7.5 MG TABLET PO (21:57)
[2021-11-13] MEDS: Sertraline HCL 25 MG TABLET 75 MG PO (21:57)
[2021-11-13] MEDS: Enoxaparin Sodium 40 MG/0.4 ML SYRINGE SUBCUT (21:59)
[2021-11-14] VITALS (10 sets, daily range): BP systolic 105–141; BP diastolic 61–87; PULSE 70–119; RESP 18; TEMP 36.4; O2SAT 98–99
[2021-11-14] MEDS: Sucralfate 1 GM TABLET PO ×4 (08:47→20:21)
[2021-11-14] MEDS: Omeprazole 40 MG CAPSULE.DR PO (08:47)
--- NOTE | 2021-11-14 13:55 | P.PNPSI_ITS ---
Subjective Subjective Date of Service: 11/14/21 Reason For Visit: unspecified bipolar and related d/o Subjective Notes: Section 7 Healthcare Proxy: No Guardianship: No Medical Problems Affecting Mental Status: No Interim History: Met with pt and Zander KIM. Disengaged, resistant to participation. Education provided regarding team roles, concern for pt's well being, goal of helping him to return to family, treatment options Pt's response was with anger, sarcasm, malaise. Refused omeprazole, refusing meals, refusing medical eval for GI sx, refuses JOSE LUIS to talk with , refuses JOSE LUIS for MRI results from [facility]. Medication Compliance: Intermittent Side effects from medications: No Attending Groups: No Review of Systems Acute medical concerns: No Medical Review of Systems: unchanged Review of Systems Reports behavioral changes, Reports confusion and Reports memory loss Psychiatric: Reports abnormal sleep pattern, Reports anxiety, Reports behavioral changes, Reports change in appetite, Reports confusion, Reports depression, Reports difficulty concentrating, Reports hopelessness, Reports irritability, Reports anhedonia, Reports memory loss, Reports mood swings and Reports paranoia Mental Status Exam Mental Status Exam Patient Appearance: Fatigued Patient Orientation: Person, Place, Time and Situation Level of Consciousness: Alert Patient Behavior: Guarded, Talkative, Cooperative, Passive, Suspicious, Anxious, Resistive to Care, Avoidant, Fatigued, Distractible, Isolative and Poor Eye Contact Mood Description: Suspicious, Withdrawn and Depressed Affect Description: Flat Patient Cognition Impaired: No Ability to Follow Directions: Good Speech Pattern: Spontaneous Speech, Soft-Spoken and Delayed Memory Description: Episodic Impaired Hallucinations: None Delusions: Paranoid Ideation Perceptual Disturbances: Derealization Thought Process: Illogical, Distracted, Rumination, Evasive and Confusion Thought Content: positive for Circumstantial, positive for Perseveration, positive for Preoccupation, positive for Thought Blocking and positive for Slowe d Thinking Depressive Symptoms: Increased Anxiety, Diff. Making Decisions, Difficulty Sleeping, Changes in Appetite, Sleeping More Than Usual, Significant Weight Loss, Loss of Int. in Activity, Feelings of Worthlessness, Hopelessness, Isolating-Friends/Family, Unhappiness, Increased Fatigue, Unexplained Stomach Pain, Low Self Esteem, Loss of Energy and Difficulty Concentrating Judgement: Poor Diagnostics Vital Signs (24Hr): Vital Signs - 24 hr 11/13/21 21:00 11/13/21 21:11 11/14/21 06:00 Temperature 98.2 F 97.5 F Pulse Rate 112 H 112 H 70 Blood Pressure 144/80 H 144/80 H 123/65 Pulse Oximetry 98 98 11/14/21 08:00 Temperature Pulse Rate 101 H Blood Pressure 121/83 Pulse Oximetry Labs Results: 11/08/21 08:30 11/08/21 08:30 Imaging Radiology Impressions: ITS Impressions Foot X-Ray 11/08/21 17:32 IMPRESSION: Tiny Achilles heel spur. Otherwise unremarkable appearance of the left foot. Medications Medications Current Medications Acetaminophen (Acetaminophen 325 Mg Tablet) 650 mg PO Q6H PRN PRN Reason: Headache/Pain Mild Scale (1-3) Al Hydroxide/Mg Hydroxide (Magnesium Hydrox/Alum Hydrox 30 Ml Oral.Susp) 30 ml PO Q6H PRN PRN Reason: Heartburn/Nausea Enoxaparin Sodium (Enoxaparin Sodium 40 Mg/0.4 Ml Syringe) 40 mg SUBCUT Q24H [facility] Last Admin: 11/13/21 21:59 Dose: 40 mg Documented by: Hydroxyzine HCl (Hydroxyzine Hcl 25 Mg Tablet) 25 mg PO Q6H PRN PRN Reason: Anxiety Last Admin: 11/08/21 20:32 Dose: 25 mg Documented by: Loperamide HCl (Loperamide Hcl 2 Mg Capsule) 2 mg PO Q6H PRN PRN Reason: Diarrhea Lorazepam (Lorazepam 1 Mg Tablet) 1 mg PO Q6H PRN PRN Reason: anxiety, agitation, catotonic Magnesium Hydroxide (Milk Of Magnesia 30 Ml Oral.Susp) 30 ml PO DAILY PRN PRN Reason: Constipation Olanzapine (Olanzapine 7.5 Mg Tablet) 7.5 mg PO BEDTIME [facility] Last Admin: 11/13/21 21:57 Dose: 7.5 mg Documented by: Omeprazole (Omeprazole 40 Mg Capsule.Dr) 40 mg PO DAILY@0630 [facility] Last Admin: 11/14/21 08:47 Dose: 40 mg Documented by: Sertraline HCl (Sertraline Hcl 25 Mg Tablet) 75 mg PO BEDTIME [facility] Last Admin: 11/13/21 21:57 Dose: 75 mg Documented by: Sucralfate (Sucralfate 1 Gm Tablet) 1 gm PO QIDACHS [facility] Last Admin: 11/14/21 12:10 Dose: 1 gm Documented by: Trazodone HCl (Trazodone Hcl 50 Mg Tablet) 50 mg PO BEDTIME PRN PRN Reason: Insomnia Allergies Allergies Allergy/AdvReac Type Severity Reaction Status Date / Time No Known Allergies Allergy Unverified 11/07/21 21:23 Assessment & Plan Assessment & Plan (1) MDD (major depressive disorder), recurrent, severe, with psychosis: Status: Acute Code(s): F33.3 - Major depressive disorder, recurrent, severe with psychotic symptoms Assessment and Plan: Pt is a 56 y.o. male who is presenting with new onset psych sx of somatic delusions, decompensation in self care, depressed mood, and perseverative thought process x 3 months. 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 He is a , unemployed, and lives with his family. No concerns for illicit substance use or alcohol abuse. Denies trauma hx. Pt is presenting with gradually worsening sx. No hx of TBI. Has had brief trials on lexapro and wellbutrin, however denies benefit. Recently started on zydis at [facility] during medical admission per psych consult. Plan: Will order foot xray due to pt complaining of pain on top of foot to the point that he cannot ambulate, has non-pitting edema. Offered Lloyd stockings, however pt declined. Says he has been mostly sedentary, encouraged him to try to walk as tolerated. Will re-order EKG, due to T wave abnormality and consult with hospitalist as needed. Will continue zyprexa 5 mg QHS to target sx of somatic delusions, bizarre thought process, and anxiety. Pt presents as internally preoccupied, depressed, withdrawn, and suspicious. Will obtain collateral information (pt is refusing to sign release for talking to his at this time).? 11/09: Will start start sertraline 50 mg QHS to target sx of OCD with poor insight, depression. Will re-start ativan 1 mg Q6H PRN, as reports this was helpful for pt and he became more responsive on ativan. 11/10: Continue sertraline 50 mg and monitor for benefit. Lovenox started per recommendation of hospitalist for DVT prevention, as pt is immobile, despondent lying down in bed. 11/11: reviewed EKG. WIll increase sertraline to 75 mg and monitor for benefit. 11/13/21: Increase Olanzapine to 7.5 mg HS. Today pt with dysphoria, treatment resistence. Work on alliance and engaging pt in his plan of care. 11/14/21: Continue current regime. Monitor response to medications. Monitor for safety in the milieu. Discharge on stabilization. Patient seen. Chart reviewed. Discussed with team. Obtain collateral contact info?as needed I spent 35 minutes with the patient and/or on the patient floor today, greater than?50% of which was spent counseling/coordinating care. Patient educated on: diagnosis, medication risk/benefits, therapeutic strategies and other (legal process) Informed Consent: further education needed Reason for contiued inpatient stay Substantial Risk for: harm to self, inability to function, rapid decompensation and med/psych decompensation
[2021-11-14] MEDS: Sertraline HCL 25 MG TABLET 75 MG PO (20:22)
[2021-11-14] MEDS: OLANZapine 7.5 MG TABLET PO (20:22)
[2021-11-14] MEDS: Enoxaparin Sodium 40 MG/0.4 ML SYRINGE SUBCUT (21:50)
[2021-11-15] VITALS (7 sets, daily range): BP systolic 114–151; BP diastolic 60–92; PULSE 65–119; RESP 18; TEMP 36.4–37; O2SAT 97–98; BMI 27.3
[2021-11-15] MEDS: Omeprazole 40 MG CAPSULE.DR PO (06:46)
[2021-11-15] MEDS: Sucralfate 1 GM TABLET PO ×4 (08:24→20:10)
--- NOTE | 2021-11-15 18:06 | HO.PSYCHPN ---
Subjective Subjective Date of Service: 11/15/21 Reason For Visit: unspecified bipolar and related d/o Subjective Notes: Section 7 Healthcare Proxy: No Guardianship: No Medical Problems Affecting Mental Status: No Interim History: Pt declined to meet today. He is playful, sarcastic, clearly depressed, asking when he will speak with his legal administrative secretary, joking at times, angry. Continues to decline permission to discuss care with family, obtain medical testing results. Tolerating Olanzapine 7.5 mg, will titrate to 10 mg. Asked pt about possible mood stabilizer trial-? Trileptal-he shrugged and states he is not interested in hearing about this. Medication Compliance: Yes Side effects from medications: No Attending Groups: No Review of Systems Acute medical concerns: No Medical Review of Systems: unchanged Review of Systems Reports behavioral changes, Reports confusion and Reports memory loss Psychiatric: Reports abnormal sleep pattern, Reports anxiety, Reports behavioral changes, Reports change in appetite, Reports confusion, Reports depression, Reports difficulty concentrating, Reports hopelessness, Reports irritability, Reports anhedonia, Reports memory loss, Reports mood swings and Reports paranoia Mental Status Exam Mental Status Exam Patient Appearance: Fatigued Patient Orientation: Person, Place, Time and Situation Level of Consciousness: Alert Patient Behavior: Guarded, Talkative, Cooperative, Passive, Suspicious, Anxious, Resistive to Care, Avoidant, Fatigued, Distractible, Isolative and Poor Eye Contact Mood Description: Suspicious, Withdrawn and Depressed Affect Description: Flat Patient Cognition Impaired: No Ability to Follow Directions: Good Speech Pattern: Spontaneous Speech, Soft-Spoken and Delayed Memory Description: Episodic Impaired Hallucinations: None Delusions: Paranoid Ideation Perceptual Disturbances: Derealization Thought Process: Illogical, Distracted, Rumination, Evasive and Confusion Thought Content: positive for Circumstantial, positive for Perseveration, positive for Preoccupation, positive for Thought Blocking and positive for Slowed Thinking Depressive Symptoms: Increased Anxiety, Diff. Making Decisions, Difficulty Sleeping, Changes in Appetite, Sleeping More Than Usual, Significant Weight Loss, Loss of Int. in Activity, Feelings of Worthlessness, Hopelessness, Isolating-Friends/Family, Unhappiness, Increased Fatigue, Unexplained Stomach Pain, Low Self Esteem, Loss of Energy and Difficulty Concentrating Judgement: Poor Diagnostics Vital Signs (24Hr): Vital Signs - 24 hr 11/14/21 20:00 11/14/21 20:25 11/14/21 20:51 Temperature 97.5 F Pulse Rate 72 72 74 Respiratory Rate 18 Blood Pressure 131/87 131/87 141/85 H Pulse Oximetry 99 11/14/21 20:52 11/15/21 06:00 11/15/21 16:27 Temperature 97.6 F Pulse Rate 119 H 76 92 Respiratory Rate 18 Blood Pressure 122/83 132/68 136/71 Pulse Oximetry 97 11/15/21 16:28 Temperature Pulse Rate 119 H Respiratory Rate Blood Pressure 114/60 Pulse Oximetry BMI result Body Mass Index 27.3 Labs Results: 11/08/21 08:30 11/08/21 08:30 Imaging Radiology Impressions: ITS Impressions Foot X-Ray 11/08/21 17:32 IMPRESSION: Tiny Achilles heel spur. Otherwise unremarkable appearance of the left foot. Medications Medications Current Medications Acetaminophen (Acetaminophen 325 Mg Tablet) 650 mg PO Q6H PRN PRN Reason: Headache/Pain Mild Scale (1-3) Al Hydroxide/Mg Hydroxide (Magnesium Hydrox/Alum Hydrox 30 Ml Oral.Susp) 30 ml PO Q6H PRN PRN Reason: Heartburn/Nausea Enoxaparin Sodium (Enoxaparin Sodium 40 Mg/0.4 Ml Syringe) 40 mg SUBCUT 2100 [facility] Hydroxyzine HCl (Hydroxyzine Hcl 25 Mg Tablet) 25 mg PO Q6H PRN PRN Reason: Anxiety Last Admin: 11/08/21 20:32 Dose: 25 mg Documented by: Loperamide HCl (Loperamide Hcl 2 Mg Capsule) 2 mg PO Q6H PRN PRN Reason: Diarrhea Magnesium Hydroxide (Milk Of Magnesia 30 Ml Oral.Susp) 30 ml PO DAILY PRN PRN Reason: Constipation Olanzapine (Olanzapine 10 Mg Tablet) 10 mg PO BEDTIME [facility] Omeprazole (Omeprazole 40 Mg Capsule.Dr) 40 mg PO DAILY@0630 [facility] Last Admin: 11/15/21 06:46 Dose: 40 mg Documented by: Sertraline HCl (Sertraline Hcl 25 Mg Tablet) 75 mg PO BEDTIME [facility] Last Admin: 11/14/21 20:22 Dose: 75 mg Documented by: Sucralfate (Sucralfate 1 Gm Tablet) 1 gm PO QIDACHS [facility] Last Admin: 11/15/21 16:19 Dose: 1 gm Documented by: Trazodone HCl (Trazodone Hcl 50 Mg Tablet) 50 mg PO BEDTIME PRN PRN Reason: Insomnia Allergies Allergies Allergy/AdvReac Type Severity Reaction Status Date / Time No Known Allergies Allergy Unverified 11/07/21 21:23 Assessment & Plan Assessment & Plan (1) MDD (major depressive disorder), recurrent, severe, with psychosis: Status: Acute Code(s): F33.3 - Major depressive disorder, recurrent, severe with psychotic symptoms Assessment and Plan: Pt is a 56 y.o. male who is presenting with new onset psych sx of somatic delusions, decompensation in self care, depressed mood, and perseverative thought process x 3 months. 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 He is a , unemployed, and lives with his family. No concerns for illicit substance use or alcohol abuse. Denies trauma hx. Pt is presenting with gradually worsening sx. No hx of TBI. Has had brief trials on lexapro and wellbutrin, however denies benefit. Recently started on zydis at [facility] during medical admission per psych consult. Plan: Will order foot xray due to pt complaining of pain on top of foot to the point that he cannot ambulate, has non-pitting edema. Offered Lloyd stockings, however pt declined. Says he has been mostly sedentary, encouraged him to try to walk as tolerated. Will re-order EKG, due to T wave abnormality and consult with hospitalist as needed. Will continue zyprexa 5 mg QHS to target sx of somatic delusions, bizarre thought process, and anxiety. Pt presents as internally preoccupied, depressed, withdrawn, and suspicious. Will obtain collateral information (pt is refusing to sign release for talking to his at this time).? 11/09: Will start start sertraline 50 mg QHS to target sx of OCD with poor insight, depression. Will re-start ativan 1 mg Q6H PRN, as reports this was helpful for pt and he became more responsive on ativan. 11/10: Continue sertraline 50 mg and monitor for benefit. Lovenox started per recommendation of hospitalist for DVT prevention, as pt is immobile, despondent lying down in bed. 11/11: reviewed EKG. WIll increase sertraline to 75 mg and monitor for benefit. 11/13/21: Increase Olanzapine to 7.5 mg HS. Today pt with dysphoria, treatment resistence. Work on alliance and engaging pt in his plan of care. 11/14/21: Continue current regime. 11/15/21: Increase Olanzapine to 10 mg HS. Continue to work on alliance. Monitor response to medications. Monitor for safety in the milieu. Discharge on stabilization. Patient seen. Chart reviewed. Discussed with team. Obtain collateral contact info?as needed I spent minutes with the patient and/or on the patient floor today, greater than?50% of which was spent counseling/coordinating care. Informed Consent: further education needed Reason for contiued inpatient stay Substantial Risk for: inability to function, rapid decompensation and med/psych decompensation
[2021-11-15] MEDS: Sertraline HCL 25 MG TABLET 75 MG PO (20:10)
[2021-11-15] MEDS: OLANZapine 10 MG TABLET PO (20:10)
[2021-11-15] MEDS: Enoxaparin Sodium 40 MG/0.4 ML SYRINGE SUBCUT (20:13)
[2021-11-16 06:00] VITALS: PULSE 90; RESP 14; TEMP 37.1; O2SAT 98
[2021-11-16] MEDS: Omeprazole 40 MG CAPSULE.DR PO (06:25)
[2021-11-16] MEDS: Sucralfate 1 GM TABLET PO ×4 (08:23→20:22)
[2021-11-16 16:00] VITALS: BP 141/94; PULSE 80
[2021-11-16 16:21] VITALS: BP 130/86; PULSE 113
--- NOTE | 2021-11-16 19:50 | P.PNPSI_ITS ---
Subjective Subjective Date of Service: 11/16/21 Reason For Visit: unspecified bipolar and related d/o Subjective Notes: Section 7 Interim History: Pt declined to meet with this documentation writer. today. 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 Did not remember last time he had a BM. Denies diarrhea. -Denies hx of seizures -Denies hx of TBI/ concussion -Denies hx of cardiac issues, however EKG showed T wave abnormality, will re- evaluate Constitutional: Reports weakness Reports vertigo and Reports dizziness Cardiovascular: Reports syncope Gastrointestinal: Reports dyspepsia and Reports heartburn Reports behavioral changes, Reports confusion, Reports vertigo, Reports dizziness, Reports syncope, Reports memory loss and Reports weakness Psychiatric: Reports abnormal sleep pattern, Reports anxiety, Reports behavioral changes, Reports change in appetite, Reports confusion, Reports depression, Reports difficulty concentrating, Reports hopelessness, Reports irritability, Reports anhedonia, Reports memory loss, Reports mood swings and Reports paranoia Mental Status Exam Mental Status Exam Patient Appearance: Fatigued Patient Orientation: Person, Place, Time and Situation Level of Consciousness: Alert Patient Behavior: Guarded, Talkative, Cooperative, Passive, Suspicious, Anxious, Resistive to Care, Avoidant, Fatigued, Distractible, Isolative and Poor Eye Contact Mood Description: Suspicious, Withdrawn and Depressed Affect Description: Flat Patient Cognition Impaired: No Ability to Follow Directions: Good Speech Pattern: Spontaneous Speech, Soft-Spoken and Delayed Memory Description: Episodic Impaired Delusions: Paranoid Ideation Thought Process: Illogical Thought Content: positive for Loose Associations Judgement: Poor Diagnostics Vital Signs (24Hr): Vital Signs - 24 hr 11/15/21 20:00 11/15/21 20:01 11/15/21 20:05 Temperature Pulse Rate 65 76 101 H Respiratory Rate Blood Pressure 146/87 H 136/83 127/73 Pulse Oximetry 11/16/21 06:00 11/16/21 16:00 11/16/21 16:21 Temperature 98.7 F Pulse Rate 90 80 113 H Respiratory Rate 14 Blood Pressure 141/94 H 130/86 Pulse Oximetry 98 BMI result Body Mass Index 27.3 Labs Results: 11/08/21 08:30 11/08/21 08:30 Imaging Radiology Impressions: ITS Impressions Foot X-Ray 11/08/21 17:32 IMPRESSION: Tiny Achilles heel spur. Otherwise unremarkable appearance of the left foot. Medications Medications Current Medications Acetaminophen (Acetaminophen 325 Mg Tablet) 650 mg PO Q6H PRN PRN Reason: Headache/Pain Mild Scale (1-3) Al Hydroxide/Mg Hydroxide (Magnesium Hydrox/Alum Hydrox 30 Ml Oral.Susp) 30 ml PO Q6H PRN PRN Reason: Heartburn/Nausea Enoxaparin Sodium (Enoxaparin Sodium 40 Mg/0.4 Ml Syringe) 40 mg SUBCUT 2100 [facility] Last Admin: 11/15/21 20:13 Dose: 40 mg Documented by: Hydroxyzine HCl (Hydroxyzine Hcl 25 Mg Tablet) 25 mg PO Q6H PRN PRN Reason: Anxiety Last Admin: 11/08/21 20:32 Dose: 25 mg Documented by: Loperamide HCl (Loperamide Hcl 2 Mg Capsule) 2 mg PO Q6H PRN PRN Reason: Diarrhea Magnesium Hydroxide (Milk Of Magnesia 30 Ml Oral.Susp) 30 ml PO DAILY PRN PRN Reason: Constipation Olanzapine (Olanzapine 10 Mg Tablet) 10 mg PO BEDTIME [facility] Last Admin: 11/15/21 20:10 Dose: 10 mg Documented by: Omeprazole (Omeprazole 40 Mg Capsule.) 40 mg PO DAILY@0630 [facility] Last Admin: 11/16/21 06:25 Dose: 40 mg Documented by: Sertraline HCl (Sertraline Hcl 25 Mg Tablet) 75 mg PO BEDTIME [facility] Last Admin: 11/15/21 20:10 Dose: 75 mg Documented by: Sucralfate (Sucralfate 1 Gm Tablet) 1 gm PO QIDACHS [facility] Last Admin: 11/16/21 16:14 Dose: 1 gm Documented by: Trazodone HCl (Trazodone Hcl 50 Mg Tablet) 50 mg PO BEDTIME PRN PRN Reason: Insomnia Allergies Allergies Allergy/AdvReac Type Severity Reaction Status Date / Time No Known Allergies Allergy Unverified 11/07/21 21:23 Assessment & Plan Assessment & Plan (1) MDD (major depressive disorder), recurrent, severe, with psychosis: Status: Acute Code(s): F33.3 - Major depressive disorder, recurrent, severe with psychotic symptoms Assessment and Plan: Pt is a 56 y.o. male who is presenting with new onset psych sx of somatic delusions, decompensation in self care, depressed mood, and perseverative thought process x 3 months. 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 He is a , unemployed, and lives with his family. No concerns for illicit substance use or alcohol abuse. Denies trauma hx. Pt is presenting with gradually worsening sx. No hx of TBI. Has had brief trials on lexapro and wellbutrin, however denies benefit. Recently started on zydis at [facility] during medical admission per psych consult. Plan: Will order foot xray due to pt complaining of pain on top of foot to the point that he cannot ambulate, has non-pitting edema. Offered Lloyd stockings, however pt declined. Says he has been mostly sedentary, encouraged him to try to walk as tolerated. Will re-order EKG, due to T wave abnormality and consult with hospitalist as needed. Will continue zyprexa 5 mg QHS to target sx of somatic delusions, bizarre thought process, and anxiety. Pt presents as internally preoc cupied, depressed, withdrawn, and suspicious. Will obtain collateral information (pt is refusing to sign release for talking to his at this time).? 11/09: Will start start sertraline 50 mg QHS to target sx of OCD with poor insight, depression. Will re-start ativan 1 mg Q6H PRN, as reports this was helpful for pt and he became more responsive on ativan. 11/10: Continue sertraline 50 mg and monitor for benefit. Lovenox started per recommendation of hospitalist for DVT prevention, as pt is immobile, despondent lying down in bed. 11/11: reviewed EKG. WIll increase sertraline to 75 mg and monitor for benefit. 11/13/21: Increase Olanzapine to 7.5 mg HS. Today pt with dysphoria, treatment resistence. Work on alliance and engaging pt in his plan of care. 11/14/21: Continue current regime. 11/15/21: Increase Olanzapine to 10 mg HS. Continue to work on alliance. 11/16/21 Continue treatment plan Monitor response to medications. Monitor for safety in the milieu. Discharge on stabilization. Patient seen. Chart reviewed. Discussed with team. Obtain collateral contact info?as needed I spent minutes with the patient and/or on the patient floor today, greater than?50% of which was spent counseling/coordinating care. Reason for contiued inpatient stay Substantial Risk for: harm to self, inability to function and rapid decompensation
[2021-11-16 20:15] VITALS: BP 123/67; PULSE 81; RESP 18; TEMP 36.6; O2SAT 97
[2021-11-16] MEDS: Enoxaparin Sodium 40 MG/0.4 ML SYRINGE SUBCUT (20:22)
[2021-11-16] MEDS: OLANZapine 10 MG TABLET PO (20:22)
[2021-11-16] MEDS: Sertraline HCL 25 MG TABLET 75 MG PO (20:22)
[2021-11-16 21:44] VITALS: BP 130/76; PULSE 104
[2021-11-17] MEDS: Omeprazole 40 MG CAPSULE.DR PO (06:19)
[2021-11-17] MEDS: Sucralfate 1 GM TABLET PO ×4 (06:19→20:40)
[2021-11-17 06:25] VITALS: BP 142/80; PULSE 75; RESP 17; TEMP 36.1; O2SAT 99
[2021-11-17 08:00] VITALS: BP 152/96; PULSE 116
[2021-11-17 12:00] VITALS: BP 96/63; PULSE 111
[2021-11-17] MEDS: Loperamide HCl 2 MG CAPSULE PO (13:40)
[2021-11-17] MEDS: hydrOXYzine HCL 25 MG TABLET PO (15:11)
[2021-11-17 16:40] VITALS: BP 110/59; PULSE 93; RESP 16; TEMP 36.9; O2SAT 99
--- NOTE | 2021-11-17 18:45 | HO.PSYCHPN ---
Subjective Subjective Date of Service: 11/17/21 Reason For Visit: unspecified bipolar and related d/o Interim History: Pt declined to converse with TW . pt anxious, withdrawn. Tolerating Olanzapine without reported side effects. 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 Did not remember last time he had a BM. Denies diarrhea. -Denies hx of seizures -Denies hx of TBI/ concussion -Denies hx of cardiac issues, however EKG showed T wave abnormality, will re-evaluate Constitutional: Reports weakness Reports vertigo and Reports dizziness Cardiovascular: Reports syncope Gastrointestinal: Reports dyspepsia and Reports heartburn Reports behavioral changes, Reports confusion, Reports vertigo, Reports dizziness, Reports syncope, Reports memory loss and Reports weakness Psychiatric: Reports abnormal sleep pattern, Reports anxiety, Reports behavioral changes, Reports change in appetite, Reports confusion, Reports depression, Reports difficulty concentrating, Reports hopelessness, Reports irritability, Reports anhedonia, Reports memory loss, Reports mood swings and Reports paranoia Mental Status Exam Mental Status Exam Narrative: A&O. In hospital attire, lying down in curled up position, normal body habitus. Poor eye contact, staring at wall, mostly attentive. No Tics or Tremors. No abnormal involuntary movements. Withdrawn, suspicious, difficult to egnage. Non-pressured speech, non-spontaneous with slowed and quiet speech. Some prolonged speech latency, no dysarthria. Mood is okay, affect is blunted, somewhat agitated/ sarcastic at times, laughing incongruently (nervous? laughter?). Denies SI/SIB/HI upon inquiry. Denies A/VH or delusional thought content, however appears to have somatic delusions. Thoughts are perseverative, ruminative. No known cognitive or memory impairment. Insight/ Judgment poor. Patient Appearance: Fatigued Patient Orientation: Person, Place, Time and Situation Level of Consciousness: Alert Patient Behavior: Guarded, Talkative, Cooperative, Passive, Suspicious, Anxious, Resistive to Care, Avoidant, Fatigued, Distractible, Isolative and Poor Eye Contact Mood Description: Suspicious, Withdrawn and Depressed Affect Description: Flat Patient Cognition Impaired: No Ability to Follow Directions: Good Speech Pattern: Spontaneous Speech, Soft-Spoken and Delayed Memory Description: Episodic Impaired Diagnostics Vital Signs (24Hr): Vital Signs - 24 hr 11/16/21 20:15 11/16/21 21:44 11/17/21 06:25 Temperature 97.8 F 97 F Pulse Rate 81 104 H 75 Respiratory Rate 18 17 Blood Pressure 123/67 130/76 142/80 H Pulse Oximetry 97 99 11/17/21 08:00 11/17/21 12:00 11/17/21 16:40 Temperature 98.4 F Pulse Rate 116 H 111 H 93 Respiratory Rate 16 Blood Pressure 152/96 H 96/63 110/59 L Pulse Oximetry 99 BMI result Body Mass Index 27.3 Labs Results: 11/08/21 08:30 11/08/21 08:30 Imaging Radiology Impressions: ITS Impressions Foot X-Ray 11/08/21 17:32 IMPRESSION: Tiny Achilles heel spur. Otherwise unremarkable appearance of the left foot. Medications Medications Current Medications Acetaminophen (Acetaminophen 325 Mg Tablet) 650 mg PO Q6H PRN PRN Reason: Headache/Pain Mild Scale (1-3) Al Hydroxide/Mg Hydroxide (Magnesium Hydrox/Alum Hydrox 30 Ml Oral.Susp) 30 ml PO Q6H PRN PRN Reason: Heartburn/Nausea Enoxaparin Sodium (Enoxaparin Sodium 40 Mg/0.4 Ml Syringe) 40 mg SUBCUT 2100 [facility] Last Admin: 11/16/21 20:22 Dose: 40 mg Documented by: Hydroxyzine HCl (Hydroxyzine Hcl 25 Mg Tablet) 25 mg PO Q6H PRN PRN Reason: Anxiety Last Admin: 11/17/21 15:11 Dose: 25 mg Documented by: Loperamide HCl (Loperamide Hcl 2 Mg Capsule) 2 mg PO Q6H PRN PRN Reason: Diarrhea Last Admin: 11/17/21 13:40 Dose: 2 mg Documented by: Magnesium Hydroxide (Milk Of Magnesia 30 Ml Oral.Susp) 30 ml PO DAILY PRN PRN Reason: Constipation Olanzapine (Olanzapine 10 Mg Tablet) 10 mg PO BEDTIME [facility] Last Admin: 11/16/21 20:22 Dose: 10 mg Documented by: Omeprazole (Omeprazole 40 Mg Capsule.Dr) 40 mg PO DAILY@0630 [facility] Last Admin: 11/17/21 06:19 Dose: 40 mg Documented by: Sertraline HCl (Sertraline Hcl 25 Mg Tablet) 75 mg PO BEDTIME [facility] Last Admin: 11/16/21 20:22 Dose: 75 mg Documented by: Sucralfate (Sucralfate 1 Gm Tablet) 1 gm PO QIDACHS [facility] Last Admin: 11/17/21 17:49 Dose: 1 gm Documented by: Trazodone HCl (Trazodone Hcl 50 Mg Tablet) 50 mg PO BEDTIME PRN PRN Reason: Insomnia Allergies Allergies Allergy/AdvReac Type Severity Reaction Status Date / Time No Known Allergies Allergy Unverified 11/07/21 21:23 Assessment & Plan Assessment & Plan (1) MDD (major depressive disorder), recurrent, severe, with psychosis: Status: Acute Code(s): F33.3 - Major depressive disorder, recurrent, severe with psychotic symptoms Assessment and Plan: Pt is a 56 y.o. male who is presenting with new onset psych sx of somatic delusions, decompensation in self care, depressed mood, and perseverative thought process x 3 months. 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 He is a , unemployed, and lives with his family. No concerns for illicit substance use or alcohol abuse. Denies trauma hx. Pt is presenting with gradually worsening sx. No hx of TBI. Has had brief trials on lexapro and wellbutrin, however denies benefit. Recently started on zydis at [facility] during medical admission per psych consult. Plan: Will order foot xray due to pt complaining of pain on top of foot to the point that he cannot ambulate, has non-pitting edema. Offered Lloyd stockings, however pt declined. Says he has been mostly sedentary, encouraged him to try to walk as tolerated. Will re-order EKG, due to T wave abnormality and consult with hospitalist as needed. Will continue zyprexa 5 mg QHS to target sx of somatic delusions, bizarre thought process, and anxiety. Pt presents as internally preoccupied, depressed, withdrawn, and suspicious. Will obtain collateral information (pt is refusing to sign release for talking to his at this time).? 11/09: Will start start sertraline 50 mg QHS to target sx of OCD with poor insight, depression. Will re-start ativan 1 mg Q6H PRN, as reports this was helpful for pt and he became more responsive on ativan. 11/10: Continue sertraline 50 mg and monitor for benefit. Lovenox started per recommendation of hospitalist for DVT prevention, as pt is immobile, despondent lying down in bed. 11/11: reviewed EKG. WIll increase sertraline to 75 mg and monitor for benefit. 11/13/21: Increase Olanzapine to 7.5 mg HS. Today pt with dysphoria, treatment resistence. Work on alliance and engaging pt in his plan of care. 11/14/21: Continue current regime. 11/15/21: Increase Olanzapine to 10 mg HS. Continue to work on alliance. 11/16/21 Continue treatment plan 11/17/21 Continue treatment plan Monitor response to medications. Monitor for safety in the milieu. Discharge on stabilization. Patient seen. Chart reviewed. Discussed with team. Obtain collateral contact info?as needed I spent minutes with the patient and/or on the patient floor today, greater than?50% of which was spent counseling/coordinating care. Reason for contiued inpatient stay Substantial Risk for: harm to self, inability to function and med/psych decompensation
[2021-11-17] MEDS: OLANZapine 10 MG TABLET PO (20:39)
[2021-11-17] MEDS: Enoxaparin Sodium 40 MG/0.4 ML SYRINGE SUBCUT (20:40)
[2021-11-17] MEDS: Sertraline HCL 25 MG TABLET 75 MG PO (20:40)
[2021-11-18] MEDS: Omeprazole 40 MG CAPSULE.DR PO (06:26)
[2021-11-18] MEDS: Sucralfate 1 GM TABLET PO ×4 (06:26→20:57)
[2021-11-18 06:30] VITALS: BP 116/71; PULSE 87; RESP 20; TEMP 36.5; O2SAT 98
[2021-11-18 08:00] VITALS: BP 115/82; PULSE 108
--- NOTE | 2021-11-18 10:53 | P.PNPSI_ITS ---
Subjective Subjective Date of Service: 11/18/21 Reason For Visit: unspecified bipolar and related d/o Interim History: Pt declined to converse with TW . pt anxious, withdrawn. Tolerating Olanzapine without reported side effects. 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 Did not remember last time he had a BM. Denies diarrhea. -Denies hx of seizures -Denies hx of TBI/ concussion -Denies hx of cardiac issues, however EKG showed T wave abnormality, will re- evaluate Constitutional: Reports weakness Reports vertigo and Reports dizziness Cardiovascular: Reports syncope Gastrointestinal: Reports dyspepsia and Reports heartburn Reports behavioral changes, Reports confusion, Reports vertigo, Reports dizziness, Reports syncope, Reports memory loss and Reports weakness Psychiatric: Reports abnormal sleep pattern, Reports anxiety, Reports behavioral changes, Reports change in appetite, Reports confusion, Reports depression, Reports difficulty concentrating, Reports hopelessness, Reports irritability, Reports anhedonia, Reports memory loss, Reports mood swings and Reports paranoia Mental Status Exam Mental Status Exam Narrative: A&O. Poor eye contact, staring at wall, mostly attentive. No Tics or Tremors. No abnormal involuntary movements. Withdrawn, suspicious, difficult to engage. Non-pressured speech, non-spontaneous with slowed and quiet speech. Some prolonged speech latency, no dysarthria. Mood- he is unable to say. affect is blunted, somewhat agitated/ sarcastic at times. Denies SI/SIB/HI upon inquiry. Denies A/VH or delusional thought content, however appears to have somatic delusions. Thoughts are perseverative, ruminative. No known cognitive or memory impairment. Insight/ Judgment poor. Patient Appearance: Fatigued Patient Orientation: Person, Place, Time and Situation Level of Consciousness: Alert Patient Behavior: Guarded, Talkative, Cooperative, Passive, Suspicious, Anxious, Resistive to Care, Avoidant, Fatigued, Distractible, Isolative and Poor Eye Contact Mood Description: Suspicious, Withdrawn and Depressed Affect Description: Flat Patient Cognition Impaired: No Ability to Follow Directions: Good Speech Pattern: Spontaneous Speech, Soft-Spoken and Delayed Memory Description: Episodic Impaired Diagnostics Vital Signs (24Hr): Vital Signs - 24 hr 11/17/21 12:00 11/17/21 16:40 11/18/21 06:30 Temperature 98.4 F 97.7 F Pulse Rate 111 H 93 87 Respiratory Rate 16 20 Blood Pressure 96/63 110/59 L 116/71 Pulse Oximetry 99 98 11/18/21 08:00 Temperature Pulse Rate 108 H Respiratory Rate Blood Pressure 115/82 Pulse Oximetry BMI result Body Mass Index 27.3 Labs Results: 11/08/21 08:30 11/08/21 08:30 Imaging Radiology Impressions: ITS Impressions Foot X-Ray 11/08/21 17:32 IMPRESSION: Tiny Achilles heel spur. Otherwise unremarkable appearance of the left foot. Medications Medications Current Medications Acetaminophen (Acetaminophen 325 Mg Tablet) 650 mg PO Q6H PRN PRN Reason: Headache/Pain Mild Scale (1-3) Al Hydroxide/Mg Hydroxide (Magnesium Hydrox/Alum Hydrox 30 Ml Oral.Susp) 30 ml PO Q6H PRN PRN Reason: Heartburn/Nausea Enoxaparin Sodium (Enoxaparin Sodium 40 Mg/0.4 Ml Syringe) 40 mg SUBCUT 2100 [facility] Last Admin: 11/17/21 20:40 Dose: 40 mg Documented by: Hydroxyzine HCl (Hydroxyzine Hcl 25 Mg Tablet) 25 mg PO Q6H PRN PRN Reason: Anxiety Last Admin: 11/17/21 15:11 Dose: 25 mg Documented by: Loperamide HCl (Loperamide Hcl 2 Mg Capsule) 2 mg PO Q6H PRN PRN Reason: Diarrhea Last Admin: 11/17/21 13:40 Dose: 2 mg Documented by: Magnesium Hydroxide (Milk Of Magnesia 30 Ml Oral.Susp) 30 ml PO DAILY PRN PRN Reason: Constipation Olanzapine (Olanzapine 10 Mg Tablet) 10 mg PO BEDTIME [facility] Last Admin: 11/17/21 20:39 Dose: 10 mg Documented by: Omeprazole (Omeprazole 40 Mg Capsule.Dr) 40 mg PO DAILY@0630 [facility] Last Admin: 11/18/21 06:26 Dose: 40 mg Documented by: Sertraline HCl (Sertraline Hcl 25 Mg Tablet) 75 mg PO BEDTIME [facility] Last Admin: 11/17/21 20:40 Dose: 75 mg Documented by: Sucralfate (Sucralfate 1 Gm Tablet) 1 gm PO QIDACHS [facility] Last Admin: 11/18/21 06:26 Dose: 1 gm Documented by: Trazodone HCl (Trazodone Hcl 50 Mg Tablet) 50 mg PO BEDTIME PRN PRN Reason: Insomnia Allergies Allergies Allergy/AdvReac Type Severity Reaction Status Date / Time No Known Allergies Allergy Unverified 11/07/21 21:23 Assessment & Plan Assessment & Plan (1) MDD (major depressive disorder), recurrent, severe, with psychosis: Status: Acute Code(s): F33.3 - Major depressive disorder, recurrent, severe with psychotic symptoms Assessment and Plan: Pt is a 56 y.o. male who is presenting with new onset psych sx of somatic delusions, decompensation in self care, depressed mood, and perseverative thought process x 3 months. 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 He is a , unemployed, and lives with his family. No concerns for illicit substance use or alcohol abuse. Denies trauma hx. Pt is presenting with gradually worsening sx. No hx of TBI. Has had brief trials on lexapro and wellbutrin, however denies benefit. Recently started on zydis at [facility] during medical admission per psych consult. Plan: Will order foot xray due to pt complaining of pain on top of foot to the point that he cannot ambulate, has non-pitting edema. Offered Lloyd stockings, however pt declined. Says he has been mostly sedentary, encouraged him to try to walk as tolerated. Will re-order EKG, due to T wave abnormality and consult with hospitalist as needed. Will continue zyprexa 5 mg QHS to target sx of somatic delusions, bizarre thought process, and anxiety. Pt presents as internally preoccupied, depressed, withdrawn, and suspicious. Will obtain collateral information (pt is refusing to sign release for talking to his at this time).? 11/09: Will start start sertraline 50 mg QHS to target sx of OCD with poor insight, depression. Will re-start ativan 1 mg Q6H PRN, as reports this was helpful for pt and he became more responsive on ativan. 11/10: Continue sertraline 50 mg and monitor for benefit. Lovenox started per recommendation of hospitalist for DVT prevention, as pt is immobile, despondent lying down in bed. 11/11: reviewed EKG. WIll increase sertraline to 75 mg and monitor for benefit. 11/13/21: Increase Olanzapine to 7.5 mg HS. Today pt with dysphoria, treatment resistence. Work on alliance and engaging pt in his plan of care. 11/14/21: Continue current regime. 11/15/21: Increase Olanzapine to 10 mg HS. Continue to work on alliance. 11/16/21 Continue treatment plan 11/17/21 Continue treatment plan 11/18/21 continue treatment plan encourage prn atarax for anxiety Monitor response to medications. Monitor for safety in the milieu. Discharge on stabilization. Patient seen. Chart reviewed. Discussed with team. Obtain collateral contact info?as needed I spent minutes with the patient and/or on the patient floor today, greater than?50% of which was spent counseling/coordinating care. Reason for contiued inpatient stay Substantial Risk for: harm to self, inability to function and rapid decompensation
[2021-11-18 12:00] VITALS: BP 117/77; PULSE 96
[2021-11-18 16:00] VITALS: BP 99/72; PULSE 99
[2021-11-18 18:00] VITALS: BP 99/72; PULSE 72; TEMP 37.2; O2SAT 96
[2021-11-18 20:00] VITALS: BP 104/84; PULSE 98
[2021-11-18] MEDS: Sertraline HCL 25 MG TABLET 75 MG PO (20:57)
[2021-11-18] MEDS: OLANZapine 10 MG TABLET PO (20:57)
[2021-11-18] MEDS: Enoxaparin Sodium 40 MG/0.4 ML SYRINGE SUBCUT (20:57)
[2021-11-19 06:00] VITALS: BP 133/90; PULSE 90; RESP 18; TEMP 36.6; O2SAT 100
[2021-11-19] MEDS: Sucralfate 1 GM TABLET PO ×4 (06:24→22:23)
[2021-11-19] MEDS: Omeprazole 40 MG CAPSULE.DR PO (06:24)
[2021-11-19 06:42] VITALS: BP 133/90; PULSE 90
--- NOTE | 2021-11-19 06:59 | PC.NURSE ---
Orthostatic VS obtained this AM were reported to regional business development manager provider Jennifer Driver. She acknowledged receipt of message and asked for information to be passed on to day shift in report. VS obtained and documented by Radha Mello RN. Pt. denied dizziness. Supine 133/90, 90; Sitting 119/77, 104; Standing 99/70, 155.
[2021-11-19 12:00] VITALS: BP 103/67; PULSE 90
[2021-11-19 13:23] LABS: MANUAL DIFF FLAG NO
[2021-11-19 13:28] LABS: Basophils Percent Auto 0.4 % (0-2); Eosinophils Absolute Auto 0.1 X10*3/uL (0.0-0.4); Eosinophils Percent Auto 2.4 % (0-4); Hematocrit 38.8 % (42.0-52.0); Imm Gran Abs Auto 0.01 X10*3/uL (0.00-0.03); Imm Gran Pct Auto 0.2 % (0.0-0.4); Lymphocytes Absolute Auto 0.8 X10*3/uL (1.2-4.9); Lymphocytes Percent Auto 16.7 % (20-40); Mean Corpuscular HGB Conc 33.5 g/dl (31.0-36.0); Mean Corpuscular Hemoglobin 28.7 pg (27.0-33.0); Mean Corpuscular Volume 85.7 fL (80.0-98.0); Mean Platelet Volume 9.6 fL (9.4-12.4); Monocytes Absolute Auto 0.3 X10*3/uL (0.1-1.2); Monocytes Percent Auto 7.2 % (2-11); Neutrophils Absolute Auto 3.3 x10*3/uL (2.0-8.3); Neutrophils Percent Auto 73.1 % (45-73); Platelet Count 199 X10*3/uL (160-400); Red Blood Count 4.53 X10*6/uL (4.60-5.80); Red Cell Distribution Width 14.1 % (11.0-16.0); White Blood Count 4.6 X10*3/uL (4.8-10.8)
[2021-11-19 13:43] LABS: Alanine Aminotransferase 22 U/L (0-40); Albumin Level 3.8 g/dL (3.5-5.0); Alkaline Phosphatase 59 U/L (39-117); Anion Gap 14 (12-20); Aspartate Amino Transferase 16 U/L (5-37); Bilirubin Total 0.6 mg/dL (0.0-1.0); Blood Urea Nitrogen 13 mg/dL (9-16); Calcium 9.3 mg/dL (8.4-10.2); Carbon Dioxide 27 mmol/L (22-29); Chloride 103 mmol/L (96-108); Creatinine Clr Calc Pharmacy 89.4; Estimated Glomerular Filt Rate > 60; Glucose Random 91 mg/dL (60-115); Potassium 4.1 mmol/L (3.3-5.1); Sodium 140 mmol/L (135-145); Total Protein 5.8 g/dL (6.5-8.0)
[2021-11-19 17:15] VITALS: BP 150/82; PULSE 76; TEMP 36.6
--- NOTE | 2021-11-19 17:28 | HO.PSYCHPN ---
Subjective Subjective Date of Service: 11/19/21 Reason For Visit: unspecified bipolar and related d/o Subjective Notes: Section [employer] Healthcare Proxy: No Guardianship: No Medical Problems Affecting Mental Status: No Interim History: Remains depressed, anxious, ambivalent. Orthostatic. Discussed hydroxyzine not being helpful. Review of potential med changes-pt agrees- will add Lorazepam, exchange Olanzapine for Risperdal, add Trileptal to manage anxiety, mood, clarity of thought. Pt identifes feeling stuck and unable to help himself. Fears commitment. Medication Compliance: Yes Side effects from medications: No Attending Groups: No Review of Systems Acute medical concerns: No Medical Review of Systems: unchanged Review of Systems Reports behavioral changes and Reports confusion Psychiatric: Reports anxiety, Reports behavioral changes, Reports change in appetite, Reports confusion, Reports depression, Reports difficulty concentrating, Reports hopelessness, Reports anhedonia, Reports panic attacks and Reports paranoia Mental Status Exam Mental Status Exam Patient Appearance: Disheveled Patient Orientation: Person, Place, Time and Situation Level of Consciousness: Alert Patient Behavior: Dependent, Guarded, Talkative, Cooperative, Anxious, Fearful, Fatigued, Distractible, Isolative and Good Eye Contact Mood Description: Depressed and Anxious Affect Description: Anxious and Flat Patient Cognition Impaired: Yes Ability to Follow Directions: Good Speech Pattern: Spontaneous Speech Memory Description: Episodic Impaired Hallucinations: None Delusions: Paranoid Ideation Perceptual Disturbances: Depersonalization and Derealization Thought Process: Distracted and Rumination Thought Content: positive for [place], positive for Circumstantial, positive for Perseveration and positive for Preoccupation Depressive Symptoms: Increased Anxiety, Diff. Making Decisions, Changes in Appetite, Sleeping More Than Usual, Loss of Int. in Activity, Feelings of Worthlessness, Hopelessness, Isolating-Friends/Family, Feelings of Guilt, Unhappiness, Increased Fatigue, Low Self Esteem, Loss of Energy and Difficulty Concentrating Judgement: Poor Diagnostics Vital Signs (24Hr): Vital Signs - 24 hr 11/18/21 18:00 11/18/21 20:00 11/19/21 06:00 Temperature 99 F 97.9 F Pulse Rate 72 98 90 Respiratory Rate 18 Blood Pressure 99/72 104/84 133/90 H Pulse Oximetry 96 100 11/19/21 06:42 11/19/21 12:00 Temperature Pulse Rate 90 90 Respiratory Rate Blood Pressure 133/90 H 103/67 Pulse Oximetry BMI result Body Mass Index 27.3 Labs Results: 11/19/21 13:21 11/19/21 13:21 Labs: Laboratory Results - last 48 hr 11/19/21 11/19/21 13:21 13:21 WBC 4.6 L RBC 4.53 L Hgb 13.0 L Hct 38.8 L MCV 85.7 MCH 28.7 MCHC 33.5 RDW 14.1 Plt Count 199 MPV 9.6 Immature Gran % (Auto) 0.2 Neut % (Auto) 73.1 H Lymph % (Auto) 16.7 L [place] % (Auto) 7.2 Eos % (Auto) 2.4 Baso % (Auto) 0.4 Lymph # (Auto) 0.8 L [place] # (Auto) 0.3 Eos # (Auto) 0.1 Baso # (Auto) 0.0 Abs Immat Gran (auto) 0.01 Absolute Neuts (auto) 3.3 Absolute Nucleated RBC 0.000 Nucleated RBC % (auto) 0.0 Sodium 140 Potassium 4.1 Chloride 103 Carbon Dioxide 27 Anion Gap 14 BUN 13 Creatinine 1.00 Estim Creat Clear Calc 89.4 Estimated GFR > 60 Random Glucose 91 Calcium 9.3 Total Bilirubin 0.6 AST 16 ALT 22 Alkaline Phosphatase 59 Total Protein 5.8 L Albumin 3.8 Imaging Radiology Impressions: ITS Impressions Foot X-Ray 11/08/21 17:32 IMPRESSION: Tiny Achilles heel spur. Otherwise unremarkable appearance of the left foot. Medications Medications Current Medications Acetaminophen (Acetaminophen 325 Mg Tablet) 650 mg PO Q6H PRN PRN Reason: Headache/Pain Mild Scale (1-3) Al Hydroxide/Mg Hydroxide (Magnesium Hydrox/Alum Hydrox 30 Ml Oral.Susp) 30 ml PO Q6H PRN PRN Reason: Heartburn/Nausea Enoxaparin Sodium (Enoxaparin Sodium 40 Mg/0.4 Ml Syringe) 40 mg SUBCUT 2100 [facility] Last Admin: 11/18/21 20:57 Dose: 40 mg Documented by: Hydroxyzine HCl (Hydroxyzine Hcl 25 Mg Tablet) 25 mg PO Q6H PRN PRN Reason: Anxiety Last Admin: 11/17/21 15:11 Dose: 25 mg Documented by: Loperamide HCl (Loperamide Hcl 2 Mg Capsule) 2 mg PO Q6H PRN PRN Reason: Diarrhea Last Admin: 11/17/21 13:40 Dose: 2 mg Documented by: Lorazepam (Lorazepam 0.5 Mg Tablet) 0.5 mg PO TID [facility] Magnesium Hydroxide (Milk Of Magnesia 30 Ml Oral.Susp) 30 ml PO DAILY PRN PRN Reason: Constipation Omeprazole (Omeprazole 40 Mg Capsule.Dr) 40 mg PO DAILY@0630 [facility] Last Admin: 11/19/21 06:24 Dose: 40 mg Documented by: Risperidone (Risperidone 0.5 Mg Tablet) 1.5 mg PO BEDTIME [facility] Sertraline HCl (Sertraline Hcl 25 Mg Tablet) 75 mg PO BEDTIME [facility] Last Admin: 11/18/21 20:57 Dose: 75 mg Documented by: Sucralfate (Sucralfate 1 Gm Tablet) 1 gm PO QIDACHS [facility] Last Admin: 11/19/21 17:05 Dose: 1 gm Documented by: Trazodone HCl (Trazodone Hcl 50 Mg Tablet) 50 mg PO BEDTIME PRN PRN Reason: Insomnia Allergies Allergies Allergy/AdvReac Type Severity Reaction Status Date / Time No Known Allergies Allergy Unverified 11/07/21 21:23 Assessment & Plan Assessment & Plan (1) MDD (major depressive disorder), recurrent, severe, with psychosis: Status: Acute Code(s): F33.3 - Major depressive disorder, recurrent, severe with psychotic symptoms Assessment and Plan: Pt is a 56 y.o. male who is presenting with new onset psych sx of somatic delusions, decompensation in self care, depressed mood, and perseverative thought process x 3 months. 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 He is a , unemployed, and lives with his family. No concerns for illicit substance use or alcohol abuse. Denies trauma hx. Pt is presenting with gradually worsening sx. No hx of TBI. Has had brief trials on lexapro and wellbutrin, however denies benefit. Recently started on zydis at [facility] during medical admission per psych consult. Plan: Will order foot xray due to pt complaining of pain on top of foot to the point that he cannot ambulate, has non-pitting edema. Offered Lloyd stockings, however pt declined. Says he has been mostly sedentary, encouraged him to try to walk as tolerated. Will re-order EKG, due to T wave abnormality and consult with hospitalist as needed. Will continue zyprexa 5 mg QHS to target sx of somatic delusions, bizarre thought process, and anxiety. Pt presents as internally preoccupied, depressed, withdrawn, and suspicious. Will obtain collateral information (pt is refusing to sign release for talking to his at this time).? 11/09: Will start start sertraline 50 mg QHS to target sx of OCD with poor insight, depression. Will re-start ativan 1 mg Q6H PRN, as reports this was helpful for pt and he became more responsive on ativan. 11/10: Continue sertraline 50 mg and monitor for benefit. Lovenox started per recommendation of hospitalist for DVT prevention, as pt is immobile, despondent lying down in bed. 11/11: reviewed EKG. WIll increase sertraline to 75 mg and monitor for benefit. 11/13/21: Increase Olanzapine to 7.5 mg HS. Today pt with dysphoria, treatment resistence. Work on alliance and engaging pt in his plan of care. 11/14/21: Continue current regime. 11/15/21: Increase Olanzapine to 10 mg HS. Continue to work on alliance. 11/16/21 Continue treatment plan 11/17/21 Continue treatment plan 11/18/21 continue treatment plan encourage prn atarax for anxiety 11/19/21: Regime not effective. Pt agrees to changes 1. Discontinue Olanzapine. 2. Risperdal 1.5 mg HS- for clarity of thought 3. Ativan 0.5 mg tid-for mgt of anxiety 4. Trileptal 150 mg bid- mood stabilization. Monitor response to medications. Monitor for safety in the milieu. Discharge on stabilization. Patient seen. Chart reviewed. Discussed with team. Obtain collateral contact info?as needed I spent 35 minutes with the patient and/or on the patient floor today, greater than?50% of which was spent counseling/coordinating care. Patient educated on: medication risk/benefits Informed Consent: further education needed Reason for contiued inpatient stay Substantial Risk for: inability to function, rapid decompensation and med/psych decompensation
[2021-11-19 22:16] VITALS: BP 131/87; PULSE 90; RESP 18; TEMP 36.4; O2SAT 98
[2021-11-19 22:17] VITALS: BP 115/76; PULSE 99; RESP 19; O2SAT 100
[2021-11-19] MEDS: Enoxaparin Sodium 40 MG/0.4 ML SYRINGE SUBCUT (22:22)
[2021-11-19] MEDS: risperiDONE 0.5 MG TABLET 1.5 MG PO (22:22)
[2021-11-19] MEDS: Sertraline HCL 25 MG TABLET 75 MG PO (22:22)
[2021-11-19] MEDS: LORazepam 0.5 MG TABLET PO (22:23)
[2021-11-19] MEDS: OXcarbazepine 150 MG TABLET PO (22:23)
[2021-11-20] MEDS: Omeprazole 40 MG CAPSULE.DR PO (05:49)
[2021-11-20 06:00] VITALS: BP 110/74; PULSE 126; RESP 18; TEMP 36.5; O2SAT 100
--- NOTE | 2021-11-20 06:11 | PC.NURSE ---
Pt came out to Nurses station. Very pleasant and lucid, Complied with vitals and medications. Had a good 20 minute conversation with fellow pt. Walked around in milieu.
[2021-11-20 06:44] VITALS: PULSE 90
[2021-11-20 08:00] VITALS: BP 109/54; PULSE 92
[2021-11-20] MEDS: LORazepam 0.5 MG TABLET PO ×3 (08:28→20:21)
[2021-11-20] MEDS: Sucralfate 1 GM TABLET PO ×3 (08:28→20:53)
[2021-11-20] MEDS: OXcarbazepine 150 MG TABLET PO ×2 (08:28→20:21)
[2021-11-20 12:00] VITALS: BP 109/54; PULSE 92
--- NOTE | 2021-11-20 20:08 | P.PNPSI_ITS ---
Subjective Subjective Date of Service: 11/20/21 Reason For Visit: unspecified bipolar and related d/o Subjective Notes: Section 7 Healthcare Proxy: No Guardianship: No Medical Problems Affecting Mental Status: No Interim History: Today is a Gerry day. Pt awake alert up participating in [employer]. Affect and Mood with euthymia, no dyphoria, no rumination. Pt calls this a Gerry day and has been experiencing these since Jul- most days with anergy, dysphoria, rumination, perseverative sx. Pt able to provide a clearer history today. Sx began with memory issues-pt reports he could not organize himself to arrange prep for colonoscopy. Reports he does not believe he feels depressed, but cannot think, cannot work with figures/finances, sleeps poorly with some racing of his thoughts. States in June 2021 he was having some difficulty with sleep, work stress, stress in selling a boat and acid reflux sx. 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 Wellbutrin did not help so they changed to Lexapro which did not help much as well. Reports days like this where he is well but then crashes after this, returning to overwhelming symptoms. Reports PCP told him MRI of brain completed in Sep 2021 was WNL along with other diagnostics Medication Compliance: Yes Side effects from medications: No Attending Groups: Yes Review of Systems Acute medical concerns: No Medical Review of Systems: unchanged Review of Systems Psychiatric: Reports no additional psychiatric complaints Mental Status Exam Mental Status Exam Patient Appearance: Appropriate Patient Orientation: Person, Place, Time and Situation Level of Consciousness: Awake and Alert Patient Behavior: Appropriate, Talkative, Cooperative and Good Eye Contact Mood Description: Calm, Appropriate, Cheerful and Apprehensive Affect Description: Appropriate Patient Cognition Impaired: No Speech Pattern: Spontaneous Speech Memory Description: Intact Hallucinations: None Delusions: Not Present Thought Process: Intact and Goal Oriented Thought Content: positive for Intact and positive for Goal Oriented Judgement: Good Diagnostics Vital Signs (24Hr): Vital Signs - 24 hr 11/19/21 22:16 11/19/21 22:17 11/20/21 06:00 Temperature 97.5 F 97.7 F Pulse Rate 90 99 126 H Respiratory Rate 18 19 18 Blood Pressure 131/87 115/76 110/74 Pulse Oximetry 98 100 100 11/20/21 06:44 11/20/21 08:00 11/20/21 12:00 Temperature Pulse Rate 90 92 92 Respiratory Rate Blood Pressure 109/54 L 109/54 L Pulse Oximetry BMI result Body Mass Index 27.3 Labs Results: 11/19/21 13:21 11/22/21 07:54 Labs: Laboratory Results - last 48 hr 11/19/21 11/19/21 13:21 13:21 WBC 4.6 L RBC 4.53 L Hgb 13.0 L Hct 38.8 L MCV 85.7 MCH 28.7 MCHC 33.5 RDW 14.1 Plt Count 199 MPV 9.6 Immature Gran % (Auto) 0.2 Neut % (Auto) 73.1 H Lymph % (Auto) 16.7 L Hopkins % (Auto) 7.2 Eos % (Auto) 2.4 Baso % (Auto) 0.4 Lymph # (Auto) 0.8 L [place] # (Auto) 0.3 Eos # (Auto) 0.1 Baso # (Auto) 0.0 Abs Immat Gran (auto) 0.01 Absolute Neuts (auto) 3.3 Absolute Nucleated RBC 0.000 Nucleated RBC % (auto) 0.0 Sodium 140 Potassium 4.1 Chloride 103 Carbon Dioxide 27 Anion Gap 14 BUN 13 Creatinine 1.00 Estim Creat Clear Calc 89.4 Estimated GFR > 60 Random Glucose 91 Calcium 9.3 Total Bilirubin 0.6 AST 16 ALT 22 Alkaline Phosphatase 59 Total Protein 5.8 L Albumin 3.8 Imaging Radiology Impressions: ITS Impressions Foot X-Ray 11/08/21 17:32 IMPRESSION: Tiny Achilles heel spur. Otherwise unremarkable appearance of the left foot. Medications Medications Current Medications Acetaminophen (Acetaminophen 325 Mg Tablet) 650 mg PO Q6H PRN PRN Reason: Headache/Pain Mild Scale (1-3) Al Hydroxide/Mg Hydroxide (Magnesium Hydrox/Alum Hydrox 30 Ml Oral.Susp) 30 ml PO Q6H PRN PRN Reason: Heartburn/Nausea Enoxaparin Sodium (Enoxaparin Sodium 40 Mg/0.4 Ml Syringe) 40 mg SUBCUT 2100 [facility] Last Admin: 11/19/21 22:22 Dose: 40 mg Documented by: Hydroxyzine HCl (Hydroxyzine Hcl 25 Mg Tablet) 25 mg PO Q6H PRN PRN Reason: Anxiety Last Admin: 11/17/21 15:11 Dose: 25 mg Documented by: Loperamide HCl (Loperamide Hcl 2 Mg Capsule) 2 mg PO Q6H PRN PRN Reason: Diarrhea Last Admin: 11/17/21 13:40 Dose: 2 mg Documented by: Lorazepam (Lorazepam 0.5 Mg Tablet) 0.5 mg PO TID [facility] Last Admin: 11/20/21 14:12 Dose: 0.5 mg Documented by: Magnesium Hydroxide (Milk Of Magnesia 30 Ml Oral.Susp) 30 ml PO DAILY PRN PRN Reason: Constipation Omeprazole (Omeprazole 40 Mg Capsule.Dr) 40 mg PO DAILY@0630 [facility] Last Admin: 11/20/21 05:49 Dose: 40 mg Documented by: Oxcarbazepine (Oxcarbazepine 150 Mg Tablet) 150 mg PO BID [facility] Last Admin: 11/20/21 08:28 Dose: 150 mg Documented by: Risperidone (Risperidone 0.5 Mg Tablet) 1.5 mg PO BEDTIME [facility] Last Admin: 11/19/21 22:22 Dose: 1.5 mg Documented by: Sertraline HCl (Sertraline Hcl 25 Mg Tablet) 75 mg PO BEDTIME [facility] Last Admin: 11/19/21 22:22 Dose: 75 mg Documented by: Sucralfate (Sucralfate 1 Gm Tablet) 1 gm PO QIDACHS [facility] Last Admin: 11/20/21 17:58 Dose: Not Given Documented by: Trazodone HCl (Trazodone Hcl 50 Mg Tablet) 50 mg PO BEDTIME PRN PRN Reason: Insomnia Allergies Allergies Allergy/AdvReac Type Severity Reaction Status Date / Time No Known Allergies Allergy Unverified 11/07/21 21:23 Assessment & Plan Assessment & Plan (1) MDD (major depressive disorder), recurrent, severe, with psychosis: Status: Acute Code(s): F33.3 - Major depressive disorder, recurrent, severe with psychotic symptoms Assessment and Plan: Pt is a 56 y.o. male who is presenting with new onset psych sx of somatic d elusions, decompensation in self care, depressed mood, and perseverative thought process x 3 months. 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 He is a , unemployed, and lives with his family. No concerns for illicit substance use or alcohol abuse. Denies trauma hx. Pt is presenting with gradually worsening sx. No hx of TBI. Has had brief trials on lexapro and wellbutrin, however denies benefit. Recently started on zydis at [facility] during medical admission per psych consult. Plan: Will order foot xray due to pt complaining of pain on top of foot to the point that he cannot ambulate, has non-pitting edema. Offered Lloyd stockings, thor owusu pt declined. Says he has been mostly sedentary, encouraged him to try to walk as tolerated. Will re-order EKG, due to T wave abnormality and consult with hospitalist as needed. Will continue zyprexa 5 mg QHS to target sx of somatic delusions, bizarre thought process, and anxiety. Pt presents as internally preoccupied, depressed, withdrawn, and suspicious. Will obtain collateral information (pt is refusing to sign release for talking to his at this time).? 11/09: Will start start sertraline 50 mg QHS to target sx of OCD with poor insight, depression. Will re-start ativan 1 mg Q6H PRN, as reports this was helpful for pt and he became more responsive on ativan. 11/10: Continue sertraline 50 mg and monitor for benefit. Lovenox started per recommendation of hospitalist for DVT prevention, as pt is immobile, despondent lying down in bed. 11/11: reviewed EKG. WIll increase sertraline to 75 mg and monitor for benefit. 11/13/21: Increase Olanzapine to 7.5 mg HS. Today pt with dysphoria, treatment resistence. Work on alliance and engaging pt in his plan of care. 11/14/21: Continue current regime. 11/15/21: Increase Olanzapine to 10 mg HS. Continue to work on alliance. 11/16/21 Continue treatment plan 11/17/21 Continue treatment plan 11/18/21 continue treatment plan encourage prn atarax for anxiety Monitor response to medications. Monitor for safety in the milieu. Discharge on stabilization. Patient seen. Chart reviewed. Discussed with team. Obtain collateral contact info?as needed 11/20/21: No medication changes today. Mood cycling observed. ?Effects of some recent changes vs pt's pattern of cycling. I spent 60 minutes with the patient and/or on the patient floor today, greater than?50% of which was spent counseling/coordinating care. Patient educated on: medication risk/benefits and therapeutic strategies Informed Consent: understands and further education needed Reason for contiued inpatient stay Substantial Risk for: inability to function, rapid decompensation and med/psych decompensation
[2021-11-20] MEDS: Sertraline HCL 25 MG TABLET 75 MG PO (20:21)
[2021-11-20] MEDS: Enoxaparin Sodium 40 MG/0.4 ML SYRINGE SUBCUT (20:23)
[2021-11-20] MEDS: risperiDONE 0.5 MG TABLET 1.5 MG PO (20:53)
[2021-11-21] VITALS (7 sets, daily range): BP systolic 93–110; BP diastolic 51–64; PULSE 79–135; RESP 16; TEMP 36.5–36.6; O2SAT 95–97
[2021-11-21] MEDS: Omeprazole 40 MG CAPSULE.DR PO (05:59)
[2021-11-21] MEDS: OXcarbazepine 150 MG TABLET PO ×2 (08:55→20:57)
[2021-11-21] MEDS: Sucralfate 1 GM TABLET PO ×4 (08:55→20:57)
[2021-11-21] MEDS: LORazepam 0.5 MG TABLET PO ×3 (08:55→20:57)
--- NOTE | 2021-11-21 16:51 | HO.PSYCHPN ---
Subjective Subjective Date of Service: 11/21/21 Reason For Visit: unspecified bipolar and related d/o Subjective Notes: Section 7 Healthcare Proxy: No Guardianship: No Medical Problems Affecting Mental Status: No Interim History: Pt reports he is again symptomatic today. In bed, anergic, amotivational, anxious, ruminative. Describes this as similiar to the pattern experienced prior to his admission. Medication Compliance: Yes Side effects from medications: No Attending Groups: No Review of Systems Acute medical concerns: No Medical Review of Systems: unchanged Review of Systems Reports confusion and Reports memory loss Psychiatric: Reports anxiety, Reports change in appetite, Reports confusion, Reports depression, Reports difficulty concentrating, Reports hopelessness, Reports anhedonia and Reports memory loss Mental Status Exam Mental Status Exam Patient Appearance: Fatigued Patient Orientation: Person, Place, Time and Situation Level of Consciousness: Alert Patient Behavior: Talkative, Cooperative and Avoidant Mood Description: Depressed Affect Description: Flat Patient Cognition Impaired: No Speech Pattern: Spontaneous Speech Memory Description: Episodic Impaired Hallucinations: None Delusions: Not Present Thought Process: Distracted Thought Content: positive for [place] and positive for Circumstantial Depressive Symptoms: Increased Anxiety, Diff. Making Decisions, Sleeping More Than Usual, Loss of Int. in Activity, Feelings of Worthlessness, Hopelessness, Isolating-Friends/Family, Unhappiness, Increased Fatigue, Low Self Esteem, Loss of Energy and Difficulty Concentrating Judgement: Poor Diagnostics Vital Signs (24Hr): Vital Signs - 24 hr 11/21/21 06:00 11/21/21 08:00 11/21/21 12:00 Temperature 97.7 F Pulse Rate 79 96 86 Respiratory Rate 16 Blood Pressure 108/55 L 94/60 93/61 Pulse Oximetry 97 BMI result Body Mass Index 27.3 Labs Results: 11/19/21 13:21 11/22/21 07:54 Imaging Radiology Impressions: ITS Impressions Foot X-Ray 11/08/21 17:32 IMPRESSION: Tiny Achilles heel spur. Otherwise unremarkable appearance of the left foot. Medications Medications Current Medications Acetaminophen (Acetaminophen 325 Mg Tablet) 650 mg PO Q6H PRN PRN Reason: Headache/Pain Mild Scale (1-3) Al Hydroxide/Mg Hydroxide (Magnesium Hydrox/Alum Hydrox 30 Ml Oral.Susp) 30 ml PO Q6H PRN PRN Reason: Heartburn/Nausea Enoxaparin Sodium (Enoxaparin Sodium 40 Mg/0.4 Ml Syringe) 40 mg SUBCUT 2100 [facility] Last Admin: 11/20/21 20:23 Dose: 40 mg Documented by: Hydroxyzine HCl (Hydroxyzine Hcl 25 Mg Tablet) 25 mg PO Q6H PRN PRN Reason: Anxiety Last Admin: 11/17/21 15:11 Dose: 25 mg Documented by: Loperamide HCl (Loperamide Hcl 2 Mg Capsule) 2 mg PO Q6H PRN PRN Reason: Diarrhea Last Admin: 11/17/21 13:40 Dose: 2 mg Documented by: Lorazepam (Lorazepam 0.5 Mg Tablet) 0.5 mg PO TID [facility] Last Admin: 11/21/21 14:36 Dose: 0.5 mg Documented by: Magnesium Hydroxide (Milk Of Magnesia 30 Ml Oral.Susp) 30 ml PO DAILY PRN PRN Reason: Constipation Omeprazole (Omeprazole 40 Mg Capsule.Dr) 40 mg PO DAILY@0630 [facility] Last Admin: 11/21/21 05:59 Dose: 40 mg Documented by: Oxcarbazepine (Oxcarbazepine 150 Mg Tablet) 150 mg PO BID [facility] Last Admin: 11/21/21 08:55 Dose: 150 mg Documented by: Risperidone (Risperidone 0.5 Mg Tablet) 1.5 mg PO BEDTIME [facility] Last Admin: 11/20/21 20:53 Dose: 1.5 mg Documented by: Sertraline HCl (Sertraline Hcl 25 Mg Tablet) 75 mg PO BEDTIME [facility] Last Admin: 11/20/21 20:21 Dose: 75 mg Documented by: Sucralfate (Sucralfate 1 Gm Tablet) 1 gm PO QIDACHS [facility] Last Admin: 11/21/21 12:28 Dose: 1 gm Documented by: Trazodone HCl (Trazodone Hcl 50 Mg Tablet) 50 mg PO BEDTIME PRN PRN Reason: Insomnia Allergies Allergies Allergy/AdvReac Type Severity Reaction Status Date / Time No Known Allergies Allergy Unverified 11/07/21 21:23 Assessment & Plan Assessment & Plan (1) MDD (major depressive disorder), recurrent, severe, with psychosis: Status: Acute Code(s): F33.3 - Major depressive disorder, recurrent, severe with psychotic symptoms Assessment and Plan: Pt is a 56 y.o. male who is presenting with new onset psych sx of somatic delusions, decompensation in self care, depressed mood, and perseverative thought process x 3 months. 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 He is a , unemployed, and lives with his family. No concerns for illicit substance use or alcohol abuse. Denies trauma hx. Pt is presenting with gradually worsening sx. No hx of TBI. Has had brief trials on lexapro and wellbutrin, however denies benefit. Recently started on zydis at [facility] during medical admission per psych consult. Plan: Will order foot xray due to pt complaining of pain on top of foot to the point that he cannot ambulate, has non-pitting edema. Offered Lloyd stockings, however pt declined. Says he has been mostly sedentary, encouraged him to try to walk as tolerated. Will re-order EKG, due to T wave abnormality and consult with hospitalist as needed. Will continue zyprexa 5 mg QHS to target sx of somatic delusions, bizarre thought process, and anxiety. Pt presents as internally preoccupied, depressed, withdrawn, and suspicious. Will obtain collateral information (pt is refusing to sign release for talking to his at this time).? 11/09: Will start start sertraline 50 mg QHS to target sx of OCD with poor insight, depression. Will re-start ativan 1 mg Q6H PRN, as reports this was helpful for pt and he became more responsive on ativan. 11/10: Continue sertraline 50 mg and monitor for benefit. Lovenox started per recommendation of hospitalist for DVT prevention, as pt is immobile, despondent lying down in bed. 11/11: reviewed EKG. WIll increase sertraline to 75 mg and monitor for benefit. 11/13/21: Increase Olanzapine to 7.5 mg HS. Today pt with dysphoria, treatment resistence. Work on alliance and engaging pt in his plan of care. 11/14/21: Continue current regime. 11/15/21: Increase Olanzapine to 10 mg HS. Continue to work on alliance. 11/16/21 Continue treatment plan 11/17/21 Continue treatment plan 11/18/21 continue treatment plan encourage prn atarax for anxiety 11/19/21: Regime not effective. Pt agrees to changes 1. Discontinue Olanzapine. 2. Risperdal 1.5 mg HS- for clarity of thought 3. Ativan 0.5 mg tid-for mgt of anxiety 4. Trileptal 150 mg bid- mood stabilization. Monitor response to medications. Monitor for safety in the milieu. Discharge on stabilization. Patient seen. Chart reviewed. Discussed with team. Obtain collateral contact info?as needed 11/21/21: Continue current regime-no medication changes today. Observe I spent 25 minutes with the patient and/or on the patient floor today, greater than?50% of which was spent counseling/coordinating care. Informed Consent: further education needed Reason for contiued inpatient stay Substantial Risk for: inability to function and rapid decompensation
[2021-11-21] MEDS: Enoxaparin Sodium 40 MG/0.4 ML SYRINGE SUBCUT (20:55)
[2021-11-21] MEDS: Sertraline HCL 25 MG TABLET 75 MG PO (20:57)
[2021-11-21] MEDS: risperiDONE 0.5 MG TABLET 1.5 MG PO (20:58)
--- NOTE | 2021-11-22 04:23 | PC.NURSE ---
dr sherman (tiger texted [id number]) 1. pts has +orthostatic vital signs 2. supine 110/52 p 82 bpm 3. sitting 89/52 p 90 bpm 4. standing 80/45 p 120 bpm plan 1. encourage po intake 2. labs as ordered in am
[2021-11-22 06:00] VITALS: BP 107/55; PULSE 97; RESP 14; O2SAT 96
[2021-11-22] MEDS: Omeprazole 40 MG CAPSULE.DR PO (06:43)
[2021-11-22 08:00] VITALS: BP 107/55; PULSE 97
[2021-11-22 08:42] LABS: Anion Gap 10 (12-20); Blood Urea Nitrogen 18 mg/dL (9-16); Carbon Dioxide 32 mmol/L (22-29); Chloride 101 mmol/L (96-108); Creatinine Clr Calc Pharmacy 80.5; Estimated Glomerular Filt Rate > 60; Glucose Random 91 mg/dL (60-115); Potassium 3.7 mmol/L (3.3-5.1); Sodium 139 mmol/L (135-145)
[2021-11-22] MEDS: OXcarbazepine 150 MG TABLET PO (09:13)
[2021-11-22] MEDS: Sucralfate 1 GM TABLET PO ×4 (09:13→21:04)
[2021-11-22] MEDS: LORazepam 0.5 MG TABLET PO ×3 (09:13→21:04)
--- NOTE | 2021-11-22 12:52 | P.PNPSI_ITS ---
Subjective Subjective Date of Service: 11/23/21 Reason For Visit: unspecified bipolar and related d/o Subjective Notes: Section 7 Healthcare Proxy: No Guardianship: No Medical Problems Affecting Mental Status: No Interim History: Some improvement noted in interaction, alertness. During the day pt remains in bed, anergic. Team report he is awake up and about in the evening-interacting, eating, drinking, participating. Agrees to ECT consultation. Medication Compliance: Yes Side effects from medications: No Attending Groups: Intermittent Review of Systems Acute medical concerns: No Medical Review of Systems: unchanged Review of Systems Reports confusion and Reports memory loss Psychiatric: Reports anxiety, Reports change in appetite, Reports confusion, Reports depression, Reports difficulty concentrating, Reports hopelessness, Reports anhedonia and Reports memory loss Mental Status Exam Mental Status Exam Patient Appearance: Fatigued Patient Orientation: Person, Place, Time and Situation Level of Consciousness: Alert Patient Behavior: Talkative, Cooperative and Avoidant Mood Description: Depressed Affect Description: Flat Patient Cognition Impaired: No Speech Pattern: Spontaneous Speech Memory Description: Episodic Impaired Hallucinations: None Delusions: Not Present Thought Process: Distracted Thought Content: positive for [place] and positive for Circumstantial Depressive Symptoms: Increased Anxiety, Diff. Making Decisions, Sleeping More Than Usual, Loss of Int. in Activity, Feelings of Worthlessness, Hopelessness, Isolating-Friends/Family, Unhappiness, Increased Fatigue, Low Self Esteem, Loss of Energy and Difficulty Concentrating Judgement: Poor Diagnostics Vital Signs (24Hr): Vital Signs - 24 hr 11/21/21 18:00 11/21/21 18:39 11/21/21 18:40 Temperature 97.9 F Pulse Rate 82 88 135 H Respiratory Rate 16 Blood Pressure 110/59 L 109/64 104/51 L Pulse Oximetry 95 11/21/21 20:06 11/22/21 06:00 11/22/21 08:00 Temperature Pulse Rate 82 97 97 Respiratory Rate 14 Blood Pressure 110/59 L 107/55 L 107/55 L Pulse Oximetry 96 BMI result Body Mass Index 27.3 Labs Results: 11/19/21 13:21 11/22/21 07:54 Labs: Laboratory Results - last 48 hr 11/22/21 07:54 Sodium 139 Potassium 3.7 Chloride 101 Carbon Dioxide 32 H Anion Gap 10 L BUN 18 H Creatinine 1.11 Estim Creat Clear Calc 80.5 Estimated GFR > 60 Random Glucose 91 Calcium 9.0 Imaging Radiology Impressions: ITS Impressions Foot X-Ray 11/08/21 17:32 IMPRESSION: Tiny Achilles heel spur. Otherwise unremarkable appearance of the left foot. Medications Medications Current Medications Acetaminophen (Acetaminophen 325 Mg Tablet) 650 mg PO Q6H PRN PRN Reason: Headache/Pain Mild Scale (1-3) Al Hydroxide/Mg Hydroxide (Magnesium Hydrox/Alum Hydrox 30 Ml Oral.Susp) 30 ml PO Q6H PRN PRN Reason: Heartburn/Nausea Enoxaparin Sodium (Enoxaparin Sodium 40 Mg/0.4 Ml Syringe) 40 mg SUBCUT 2100 [facility] Last Admin: 11/21/21 20:55 Dose: 40 mg Documented by: Hydroxyzine HCl (Hydroxyzine Hcl 25 Mg Tablet) 25 mg PO Q6H PRN PRN Reason: Anxiety Last Admin: 11/17/21 15:11 Dose: 25 mg Documented by: Loperamide HCl (Loperamide Hcl 2 Mg Capsule) 2 mg PO Q6H PRN PRN Reason: Diarrhea Last Admin: 11/17/21 13:40 Dose: 2 mg Documented by: Lorazepam (Lorazepam 0.5 Mg Tablet) 0.5 mg PO TID [facility] Last Admin: 11/22/21 09:13 Dose: 0.5 mg Documented by: Magnesium Hydroxide (Milk Of Magnesia 30 Ml Oral.Susp) 30 ml PO DAILY PRN PRN Reason: Constipation Omeprazole (Omeprazole 40 Mg Capsule.Dr) 40 mg PO DAILY@0630 [facility] Last Admin: 11/22/21 06:43 Dose: 40 mg Documented by: Oxcarbazepine (Oxcarbazepine 150 Mg Tablet) 150 mg PO BID [facility] Last Admin: 11/22/21 09:13 Dose: 150 mg Documented by: Risperidone (Risperidone 0.5 Mg Tablet) 1.5 mg PO BEDTIME [facility] Last Admin: 11/21/21 20:58 Dose: 1.5 mg Documented by: Sertraline HCl (Sertraline Hcl 25 Mg Tablet) 75 mg PO BEDTIME [facility] Last Admin: 11/21/21 20:57 Dose: 75 mg Documented by: Sucralfate (Sucralfate 1 Gm Tablet) 1 gm PO QIDACHS [facility] Last Admin: 11/22/21 12:36 Dose: 1 gm Documented by: Trazodone HCl (Trazodone Hcl 50 Mg Tablet) 50 mg PO BEDTIME PRN PRN Reason: Insomnia Allergies Allergies Allergy/AdvReac Type Severity Reaction Status Date / Time No Known Allergies Allergy Unverified 11/07/21 21:23 Assessment & Plan Assessment & Plan (1) MDD (major depressive disorder), recurrent, severe, with psychosis: Status: Acute Code(s): F33.3 - Major depressive disorder, recurrent, severe with psychotic symptoms Assessment and Plan: Pt is a 56 y.o. male who is presenting with new onset psych sx of somatic delusions, decompensation in self care, depressed mood, and perseverative thought process x 3 months. 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 He is a , unemployed, and lives with his family. No concerns for illicit substance use or alcohol abuse. Denies trauma hx. Pt is presenting with gradually worsening sx. No hx of TBI. Has had brief trials on lexapro and wellbutrin, however denies benefit. Recently started on zydis at [facility] during medical admission per psych consult. Plan: Will order foot xray due to pt complaining of pain on top of foot to the point that he cannot ambulate, has non-pitting edema. Offered Lloyd stockings, however pt declined. Says he has been mostly sedentary, encouraged him to try to walk as tolerated. Will re-order EKG, due to T wave abnormality and consult with hospitalist as needed. Will continue zyprexa 5 mg QHS to target sx of somatic delusions, bizarre thought process, and anxiety. Pt presents as internally preoccupied, depressed, withdrawn, and suspicious. Will obtain collateral information (pt is refusing to sign release for talking to his at this time).? 11/09: Will start start sertraline 50 mg QHS to target sx of OCD with poor insight, depression. Will re-start ativan 1 mg Q6H PRN, as reports this was helpful for pt and he became more responsive on ativan. 11/10: Continue sertraline 50 mg and monitor for benefit. Lovenox started per recommendation of hospitalist for DVT prevention, as pt is immobile, despondent lying down in bed. 11/11: reviewed EKG. WIll increase sertraline to 75 mg and monitor for benefit. 11/13/21: Increase Olanzapine to 7.5 mg HS. Today pt with dysphoria, treatment resistence. Work on alliance and engaging pt in his plan of care. 11/14/21: Continue current regime. 11/15/21: Increase Olanzapine to 10 mg HS. Continue to work on alliance. 11/16/21 Continue treatment plan 11/17/21 Continue treatment plan 11/18/21 continue treatment plan encourage prn atarax for anxiety 11/19/21: Regime not effective. Pt agrees to changes 1. Discontinue Olanzapine. 2. Risperdal 1.5 mg HS- for clarity of thought 3. Ativan 0.5 mg tid-for mgt of anxiety 4. Trileptal 150 mg bid- mood stabilization. Monitor response to medications. Monitor for safety in the milieu. Discharge on stabilization. Patient seen. Chart reviewed. Discussed with team. Obtain collateral contact info?as needed 11/21/21: Continue current regime-no medication changes today. Observe 11/22/21: Increase Trileptal to 300 mg bid I spent 25 minutes with the patient and/or on the patient floor today, greater than?50% of which was spent counseling/coordinating care. Patient educated on: medication risk/benefits and therapeutic strategies Informed Consent: understands Reason for contiued inpatient stay Substantial Risk for: inability to function and rapid decompensation
[2021-11-22 16:00] VITALS: BP 119/71; PULSE 77
[2021-11-22 17:42] VITALS: BP 106/66; PULSE 96; RESP 18; TEMP 36.6; O2SAT 97
[2021-11-22 20:00] VITALS: BP 117/71; PULSE 76
[2021-11-22] MEDS: risperiDONE 0.5 MG TABLET 1.5 MG PO (21:03)
[2021-11-22] MEDS: Sertraline HCL 25 MG TABLET 75 MG PO (21:03)
[2021-11-22] MEDS: Enoxaparin Sodium 40 MG/0.4 ML SYRINGE SUBCUT (21:04)
[2021-11-22] MEDS: OXcarbazepine 300 MG TABLET PO (21:04)
[2021-11-23 06:02] VITALS: BP 100/54; PULSE 84; RESP 16; TEMP 36.3; O2SAT 98
[2021-11-23] MEDS: Omeprazole 40 MG CAPSULE.DR PO (06:06)
[2021-11-23 08:00] VITALS: BP 97/58; PULSE 83
[2021-11-23] MEDS: OXcarbazepine 300 MG TABLET PO ×2 (08:48→20:55)
[2021-11-23] MEDS: LORazepam 0.5 MG TABLET PO ×3 (08:48→20:57)
[2021-11-23] MEDS: Sucralfate 1 GM TABLET PO ×4 (08:48→20:55)
[2021-11-23 12:00] VITALS: BP 99/55; PULSE 99
[2021-11-23 18:00] VITALS: BP 93/56; PULSE 87; RESP 16; TEMP 36.3; O2SAT 99
--- NOTE | 2021-11-23 18:04 | HO.PSYCHPN ---
Subjective Subjective Date of Service: 11/23/21 Reason For Visit: unspecified bipolar and related d/o Subjective Notes: Section [employer] Healthcare Proxy: No Guardianship: No Medical Problems Affecting Mental Status: No Interim History: Tolerating increase in Trileptal. Pattern of increase in activity and presence on evenings continues. ECT eval next week. Overall, improvement is seen. Medication Compliance: Yes Side effects from medications: No Attending Groups: Intermittent Review of Systems Acute medical concerns: No Medical Review of Systems: unchanged Review of Systems Reports confusion and Reports memory loss Psychiatric: Reports anxiety, Reports change in appetite, Reports confusion, Reports depression, Reports difficulty concentrating, Reports hopelessness, Reports anhedonia and Reports memory loss Mental Status Exam Mental Status Exam Patient Appearance: Fatigued Patient Orientation: Person, Place, Time and Situation Level of Consciousness: Alert Patient Behavior: Talkative, Cooperative and Avoidant Mood Description: Depressed Affect Description: Flat Patient Cognition Impaired: No Speech Pattern: Spontaneous Speech Memory Description: Episodic Impaired Hallucinations: None Delusions: Not Present Thought Process: Distracted Thought Content: positive for Yeso and positive for Circumstantial Depressive Symptoms: Increased Anxiety, Diff. Making Decisions, Sleeping More Than Usual, Loss of Int. in Activity, Feelings of Worthlessness, Hopelessness, Isolating-Friends/Family, Unhappiness, Increased Fatigue, Low Self Esteem, Loss of Energy and Difficulty Concentrating Judgement: Poor Diagnostics Vital Signs (24Hr): Vital Signs - 24 hr 11/22/21 20:00 11/23/21 06:02 11/23/21 08:00 Temperature 97.4 F Pulse Rate 76 84 83 Respiratory Rate 16 Blood Pressure 117/71 100/54 L 97/58 L Pulse Oximetry 98 11/23/21 12:00 Temperature Pulse Rate 99 Respiratory Rate Blood Pressure 99/55 L Pulse Oximetry BMI result Body Mass Index 27.3 Labs Results: 11/19/21 13:21 11/22/21 07:54 Labs: Laboratory Results - last 48 hr 11/22/21 07:54 Sodium 139 Potassium 3.7 Chloride 101 Carbon Dioxide 32 H Anion Gap 10 L BUN 18 H Creatinine 1.11 Estim Creat Clear Calc 80.5 Estimated GFR > 60 Random Glucose 91 Calcium 9.0 Imaging Radiology Impressions: ITS Impressions Foot X-Ray 11/08/21 17:32 IMPRESSION: Tiny Achilles heel spur. Otherwise unremarkable appearance of the left foot. Cervical Spine X-Ray 11/22/21 14:50 IMPRESSION: No fracture or malalignment. Mild degenerative changes. Forearm X-Ray 11/22/21 14:50 IMPRESSION: No acute fractures or malalignment within the imaged left upper extremity. Hip X-Ray 11/22/21 14:50 IMPRESSION: No acute fractures or malalignment. Humerus X-Ray 11/22/21 14:50 IMPRESSION: No acute fractures or malalignment within the imaged left upper extremity. Shoulder X-Ray 11/22/21 14:50 IMPRESSION: No acute fractures or malalignment within the imaged left upper extremity. Medications Medications Current Medications Acetaminophen (Acetaminophen 325 Mg Tablet) 650 mg PO Q6H PRN PRN Reason: Headache/Pain Mild Scale (1-3) Al Hydroxide/Mg Hydroxide (Magnesium Hydrox/Alum Hydrox 30 Ml Oral.Susp) 30 ml PO Q6H PRN PRN Reason: Heartburn/Nausea Enoxaparin Sodium (Enoxaparin Sodium 40 Mg/0.4 Ml Syringe) 40 mg SUBCUT 2100 [facility] Last Admin: 11/22/21 21:04 Dose: 40 mg Documented by: Hydroxyzine HCl (Hydroxyzine Hcl 25 Mg Tablet) 25 mg PO Q6H PRN PRN Reason: Anxiety Last Admin: 11/17/21 15:11 Dose: 25 mg Documented by: Loperamide HCl (Loperamide Hcl 2 Mg Capsule) 2 mg PO Q6H PRN PRN Reason: Diarrhea Last Admin: 11/17/21 13:40 Dose: 2 mg Documented by: Lorazepam (Lorazepam 0.5 Mg Tablet) 0.5 mg PO TID [facility] Last Admin: 11/23/21 14:49 Dose: 0.5 mg Documented by: Magnesium Hydroxide (Milk Of Magnesia 30 Ml Oral.Susp) 30 ml PO DAILY PRN PRN Reason: Constipation Omeprazole (Omeprazole 40 Mg Capsule.Dr) 40 mg PO DAILY@0630 [facility] Last Admin: 11/23/21 06:06 Dose: 40 mg Documented by: Oxcarbazepine (Oxcarbazepine 300 Mg Tablet) 300 mg PO BID [facility] Last Admin: 11/23/21 08:48 Dose: 300 mg Documented by: Risperidone (Risperidone 0.5 Mg Tablet) 1.5 mg PO BEDTIME [facility] Last Admin: 11/22/21 21:03 Dose: 1.5 mg Documented by: Sertraline HCl (Sertraline Hcl 25 Mg Tablet) 75 mg PO BEDTIME [facility] Last Admin: 11/22/21 21:03 Dose: 75 mg Documented by: Sucralfate (Sucralfate 1 Gm Tablet) 1 gm PO QIDACHS [facility] Last Admin: 11/23/21 17:31 Dose: 1 gm Documented by: Trazodone HCl (Trazodone Hcl 50 Mg Tablet) 50 mg PO BEDTIME PRN PRN Reason: Insomnia Allergies Allergies Allergy/AdvReac Type Severity Reaction Status Date / Time No Known Allergies Allergy Unverified 11/07/21 21:23 Assessment & Plan Assessment & Plan (1) MDD (major depressive disorder), recurrent, severe, with psychosis: Status: Acute Code(s): F33.3 - Major depressive disorder, recurrent, severe with psychotic symptoms Assessment and Plan: Pt is a 56 y.o. male who is presenting with new onset psych sx of somatic delusions, decompensation in self care, depressed mood, and perseverative thought process x 3 months. 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 He is a , unemployed, and lives with his family. No concerns for illicit substance use or alcohol abuse. Denies trauma hx. Pt is presenting with gradually worsening sx. No hx of TBI. Has had brief trials on lexapro and wellbutrin, however denies benefit. Recently started on zydis at [facility] during medical admission per psych consult. Plan: Will order foot xray due to pt complaining of pain on top of foot to the point that he cannot ambulate, has non-pitting edema. Offered Lloyd stockings, however pt declined. Says he has been mostly sedentary, encouraged him to try to walk as tolerated. Will re-order EKG, due to T wave abnormality and consult with hospitalist as needed. Will continue zyprexa 5 mg QHS to target sx of somatic delusions, bizarre thought process, and anxiety. Pt presents as internally preoccupied, depressed, withdrawn, and suspicious. Will obtain collateral information (pt is refusing to sign release for talking to his at this time).? 11/09: Will start start sertraline 50 mg QHS to target sx of OCD with poor insight, depression. Will re-start ativan 1 mg Q6H PRN, as reports this was helpful for pt and he became more responsive on ativan. 11/10: Continue sertraline 50 mg and monitor for benefit. Lovenox started per recommendation of hospitalist for DVT prevention, as pt is immobile, despondent lying down in bed. 11/11: reviewed EKG. WIll increase sertraline to 75 mg and monitor for benefit. 11/13/21: Increase Olanzapine to 7.5 mg HS. Today pt with dysphoria, treatment resistence. Work on alliance and engaging pt in his plan of care. 11/14/21: Continue current regime. 11/15/21: Increase Olanzapine to 10 mg HS. Continue to work on alliance. 11/16/21 Continue treatment plan 11/17/21 Continue treatment plan 11/18/21 continue treatment plan encourage prn atarax for anxiety 11/19/21: Regime not effective. Pt agrees to changes 1. Discontinue Olanzapine. 2. Risperdal 1.5 mg HS- for clarity of thought 3. Ativan 0.5 mg tid-for mgt of anxiety 4. Trileptal 150 mg bid- mood stabilization. Monitor response to medications. Monitor for safety in the milieu. Discharge on stabilization. Patient seen. Chart reviewed. Discussed with team. Obtain collateral contact info?as needed 11/21/21: Continue current regime-no medication changes today. Observe 11/22/21: Increase Trileptal to 300 mg bid 11/23/21: Continue current regime ECT consultation I spent 20 minutes with the patient and/or on the patient floor today, greater than?50% of which was spent counseling/coordinating care. Patient educated on: therapeutic strategies Informed Consent: understands and further education needed Reason for contiued inpatient stay Substantial Risk for: inability to function and rapid decompensation
[2021-11-23 20:00] VITALS: BP 93/56; PULSE 87
[2021-11-23] MEDS: Sertraline HCL 25 MG TABLET 75 MG PO (20:55)
[2021-11-23] MEDS: Enoxaparin Sodium 40 MG/0.4 ML SYRINGE SUBCUT (20:56)
[2021-11-23] MEDS: risperiDONE 0.5 MG TABLET 1.5 MG PO (20:56)
[2021-11-24] MEDS: Omeprazole 40 MG CAPSULE.DR PO (06:33)
[2021-11-24 06:35] VITALS: BP 115/65; PULSE 76; TEMP 36.7
[2021-11-24] MEDS: Sucralfate 1 GM TABLET PO ×4 (08:26→20:34)
[2021-11-24] MEDS: OXcarbazepine 300 MG TABLET PO ×2 (08:26→20:34)
[2021-11-24] MEDS: LORazepam 0.5 MG TABLET PO ×3 (08:26→20:34)
--- NOTE | 2021-11-24 11:46 | P.PNPSI_ITS ---
Subjective Subjective Date of Service: 11/24/21 Reason For Visit: unspecified bipolar and related d/o Subjective Notes: Conditional Voluntary Interim History: Pt initially declining to talk with this functional tester typewriters stating I don't have anything to talk about. He reports sleeping and eating well. He continues to report depressed mood, some improvement but does not elaborate. He denies SI/HI. Reminded of ECT consult, which pt reports he is not interested. Given written information about ECT, and encouraged pt to speak with psychiatrist who does ECT. Per nursing, pt mostly in his room. No behavioral concerns. Medication Compliance: Yes Side effects from medications: No Review of Systems Review of Systems No changes: CVS: No c/o chest pain, palpitations, no SOB MANAGER NEWS: No c/o dizziness, headache GI: Pt complains of acid, difficulty swallowing. Did not remember last time he had a BM. Denies diarrhea. -Denies hx of seizures -Denies hx of TBI/ concussion -Denies hx of cardiac issues, however EKG showed T wave abnormality, will re-evaluate Constitutional: Reports weakness Reports vertigo and Reports dizziness Cardiovascular: Reports syncope Gastrointestinal: Reports dyspepsia and Reports heartburn Reports behavioral changes, Reports confusion, Reports vertigo, Reports dizziness, Reports syncope, Reports memory loss and Reports weakness Psychiatric: Reports no additional psychiatric complaints, Reports abnormal sleep pattern, Reports anxiety, Reports behavioral changes, Reports change in appetite, Reports confusion, Reports depression, Reports difficulty concentrating, Reports hopelessness, Reports irritability, Reports anhedonia, Reports memory loss, Reports mood swings, Reports panic attacks and Reports paranoia Mental Status Exam Mental Status Exam Narrative: A&O. Poor eye contact, staring at wall, mostly attentive. No Tics or Tremors. No abnormal involuntary movements. Withdrawn, suspicious, difficult to engage. Non-pressured speech, non-spontaneous with slowed and quiet speech. Some prolonged speech latency, no dysarthria. Mood- he is unable to say. affect is blunted, somewhat agitated/ sarcastic at times. Denies SI/SIB/HI upon inquiry. Denies A/VH or delusional thought content, however appears to have somatic del usions. Thoughts are perseverative, ruminative. No known cognitive or memory impairment. Insight/ Judgment poor. Diagnostics Vital Signs (24Hr): Vital Signs - 24 hr 11/24/21 16:27 11/24/21 16:29 11/24/21 16:30 Temperature Pulse Rate 70 84 101 H Respiratory Rate Blood Pressure 113/71 115/62 109/56 L Pulse Oximetry 11/24/21 20:00 11/24/21 20:41 11/25/21 06:00 Temperature 98.1 F 97.3 F Pulse Rate 79 79 65 Respiratory Rate 16 18 Blood Pressure 124/63 125/56 L 120/73 Pulse Oximetry 96 98 11/25/21 08:00 11/25/21 10:58 Temperature Pulse Rate 86 88 Respiratory Rate Blood Pressure 102/64 102/64 Pulse Oximetry BMI result Body Mass Index 27.3 Labs Results: 11/19/21 13:21 11/22/21 07:54 Imaging Radiology Impressions: ITS Impressions Foot X-Ray 11/08/21 17:32 IMPRESSION: Tiny Achilles heel spur. Otherwise unremarkable appearance of the left foot. Cervical Spine X-Ray 11/22/21 14:50 IMPRESSION: No fracture or malalignment. Mild degenerative changes. Forearm X-Ray 11/22/21 14:50 IMPRESSION: No acute fractures or malalignment within the imaged left upper extremity. Hip X-Ray 11/22/21 14:50 IMPRESSION: No acute fractures or malalignment. Humerus X-Ray 11/22/21 14:50 IMPRESSION: No acute fractures or malalignment within the imaged left upper extremity. Shoulder X-Ray 11/22/21 14:50 IMPRESSION: No acute fractures or malalignment within the imaged left upper extremity. Medications Medications Current Medications Acetaminophen (Acetaminophen 325 Mg Tablet) 650 mg PO Q6H PRN PRN Reason: Headache/Pain Mild Scale (1-3) Al Hydroxide/Mg Hydroxide (Magnesium Hydrox/Alum Hydrox 30 Ml Oral.Susp) 30 ml PO Q6H PRN PRN Reason: Heartburn/Nausea Enoxaparin Sodium (Enoxaparin Sodium 40 Mg/0.4 Ml Syringe) 40 mg SUBCUT 2100 [facility] Last Admin: 11/24/21 20:35 Dose: 40 mg Documented by: Hydroxyzine HCl (Hydroxyzine Hcl 25 Mg Tablet) 25 mg PO Q6H PRN PRN Reason: Anxiety Last Admin: 11/17/21 15:11 Dose: 25 mg Documented by: Loperamide HCl (Loperamide Hcl 2 Mg Capsule) 2 mg PO Q6H PRN PRN Reason: Diarrhea Last Admin: 11/17/21 13:40 Dose: 2 mg Documented by: Lorazepam (Lorazepam 0.5 Mg Tablet) 0.5 mg PO TID [facility] Last Admin: 11/25/21 08:43 Dose: 0.5 mg Documented by: Magnesium Hydroxide (Milk Of Magnesia 30 Ml Oral.Susp) 30 ml PO DAILY PRN PRN Reason: Constipation Omeprazole (Omeprazole 40 Mg Capsule.Dr) 40 mg PO DAILY@0630 [facility] Last Admin: 11/25/21 06:10 Dose: 40 mg Documented by: Oxcarbazepine (Oxcarbazepine 300 Mg Tablet) 300 mg PO BID [facility] Last Admin: 11/25/21 08:43 Dose: 300 mg Documented by: Risperidone (Risperidone 0.5 Mg Tablet) 1.5 mg PO BEDTIME [facility] Last Admin: 11/24/21 20:34 Dose: 1.5 mg Documented by: Sertraline HCl (Sertraline Hcl 25 Mg Tablet) 75 mg PO BEDTIME [facility] Last Admin: 11/24/21 20:34 Dose: 75 mg Documented by: Sucralfate (Sucralfate 1 Gm Tablet) 1 gm PO QIDACHS [facility] Last Admin: 11/25/21 11:06 Dose: 1 gm Documented by: Trazodone HCl (Trazodone Hcl 50 Mg Tablet) 50 mg PO BEDTIME PRN PRN Reason: Insomnia Allergies Allergies Allergy/AdvReac Type Severity Reaction Status Date / Time No Known Allergies Allergy Unverified 11/07/21 21:23 Assessment & Plan Assessment & Plan (1) MDD (major depressive disorder), recurrent, severe, with psychosis: Status: Acute Code(s): F33.3 - Major depressive disorder, recurrent, severe with psychotic symptoms Assessment and Plan: Pt is a 56 y.o. male who is presenting with new onset psych sx of somatic delusions, decompensation in self care, depressed mood, and perseverative tho ught process x 3 months. 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 He is a , unemployed, and lives with his family. No concerns for illicit substance use or alcohol abuse. Denies trauma hx. Pt is presenting with gradually worsening sx. No hx of TBI. Has had brief trials on lexapro and wellbutrin, however denies benefit. Recently started on zydis at [facility] during medical admission per psych consult. Plan: Will order foot xray due to pt complaining of pain on top of foot to the point that he cannot ambulate, has non-pitting edema. Offered Lloyd stockings, however pt declined. Says he has been mostly sedentary, encouraged him to try to walk as tolerated. Will re-order EKG, due to T wave abnormality and consult with hospitalist as needed. Will continue zyprexa 5 mg QHS to target sx of somatic delusions, bizarre thought process, and anxiety. Pt presents as internally preoccupied, depressed, withdrawn, and suspicious. Will obtain collateral information (pt is refusing to sign release for talking to his at this time).? 11/09: Will start start sertraline 50 mg QHS to target sx of OCD with poor insight, depression. Will re-start ativan 1 mg Q6H PRN, as reports this was helpful for pt and he became more responsive on ativan. 11/10: Continue sertraline 50 mg and monitor for benefit. Lovenox started per recommendation of hospitalist for DVT prevention, as pt is immobile, despondent lying down in bed. 11/11: reviewed EKG. WIll increase sertraline to 75 mg and monitor for benefit. 11/13/21: Increase Olanzapine to 7.5 mg HS. Today pt with dysphoria, treatment resistence. Work on alliance and engaging pt in his plan of care. 11/14/21: Continue current regime. 11/15/21: Increase Olanzapine to 10 mg HS. Continue to work on alliance. 11/16/21 Continue treatment plan 11/17/21 Continue treatment plan 11/18/21 continue treatment plan encourage prn atarax for anxiety 11/19/21: Regime not effective. Pt agrees to changes 1. Discontinue Olanzapine. 2. Risperdal 1.5 mg HS- for clarity of thought 3. Ativan 0.5 mg tid-for mgt of anxiety 4. Trileptal 150 mg bid- mood stabilization. Monitor response to medications. Monitor for safety in the milieu. Discharge on stabilization. Patient seen. Chart reviewed. Discussed with team. Obtain collateral contact info?as needed 11/21/21: Continue current regime-no medication changes today. Observe 11/22/21: Increase Trileptal to 300 mg bid 11/23/21: Continue current regime ECT consultation 11/24- no medication changes I spent minutes with the patient and/or on the patient floor today, greater than?50% of which was spent counseling/coordinating care. Reason for contiued inpatient stay Substantial Risk for: inability to function
[2021-11-24 16:27] VITALS: BP 113/71; PULSE 70
[2021-11-24 16:29] VITALS: BP 115/62; PULSE 84
[2021-11-24 16:30] VITALS: BP 109/56; PULSE 101
[2021-11-24 20:00] VITALS: BP 124/63; PULSE 79
[2021-11-24] MEDS: Sertraline HCL 25 MG TABLET 75 MG PO (20:34)
[2021-11-24] MEDS: risperiDONE 0.5 MG TABLET 1.5 MG PO (20:34)
[2021-11-24] MEDS: Enoxaparin Sodium 40 MG/0.4 ML SYRINGE SUBCUT (20:35)
[2021-11-24 20:41] VITALS: BP 122/57; BP 124/63; BP 125/56; PULSE 79; RESP 16; TEMP 36.7; O2SAT 96
[2021-11-25] VITALS (8 sets, daily range): BP systolic 92–120; BP diastolic 53–73; PULSE 65–104; RESP 16–18; TEMP 36.3–36.7; O2SAT 98
[2021-11-25] MEDS: Omeprazole 40 MG CAPSULE.DR PO (06:10)
[2021-11-25] MEDS: Sucralfate 1 GM TABLET PO ×3 (08:43→15:49)
[2021-11-25] MEDS: OXcarbazepine 300 MG TABLET PO ×2 (08:43→20:11)
[2021-11-25] MEDS: LORazepam 0.5 MG TABLET PO ×3 (08:43→20:10)
--- NOTE | 2021-11-25 11:01 | HO.PSYCHPN ---
Subjective Subjective Date of Service: 11/25/21 Reason For Visit: unspecified bipolar and related d/o Subjective Notes: Conditional Voluntary Interim History: Pt in bed, minimal eye contact, mildly irritable. He reports sleeping and eating well. He continues to report depressed mood, some improvement but does not elaborate. He denies SI/HI. He reports not interested in ECT, again encouraged to review information. Per nursing, pt mostly in his room. No behavioral concerns. Pt is disheveled, minimally interacting with peers. 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 Did not remember last time he had a BM. Denies diarrhea. -Denies hx of seizures -Denies hx of TBI/ concussion -Denies hx of cardiac issues, however EKG showed T wave abnormality, will re-evaluate Constitutional: Reports weakness Reports vertigo and Reports dizziness Cardiovascular: Reports syncope Gastrointestinal: Reports dyspepsia and Reports heartburn Reports behavioral changes, Reports confusion, Reports vertigo, Reports dizziness, Reports syncope, Reports memory loss and Reports weakness Psychiatric: Reports no additional psychiatric complaints, Reports abnormal sleep pattern, Reports anxiety, Reports behavioral changes, Reports change in appetite, Reports confusion, Reports depression, Reports difficulty concentrating, Reports hopelessness, Reports irritability, Reports anhedonia, Reports memory loss, Reports mood swings, Reports panic attacks and Reports paranoia Mental Status Exam Mental Status Exam Narrative: A&O. Poor eye contact, staring at wall, mostly attentive. No Tics or Tremors. No abnormal involuntary movements. Withdrawn, suspicious, difficult to engage. Non-pressured speech, non-spontaneous with slowed and quiet speech. Some prolonged speech latency, no dysarthria. Mood- he is unable to say. affect is blunted, somewhat agitated/ sarcastic at times. Denies SI/SIB/HI upon inquiry. Denies A/VH or delusional thought content, however appears to have somatic delusions. Thoughts are perseverative, ruminative. No known cognitive or memory impairment. Insight/ Judgment poor. Diagnostics Vital Signs (24Hr): Vital Signs - 24 hr 11/24/21 16:27 11/24/21 16:29 11/24/21 16:30 Temperature Pulse Rate 70 84 101 H Respiratory Rate Blood Pressure 113/71 115/62 109/56 L Pulse Oximetry 11/24/21 20:00 11/24/21 20:41 11/25/21 06:00 Temperature 98.1 F 97.3 F Pulse Rate 79 79 65 Respiratory Rate 16 18 Blood Pressure 124/63 125/56 L 120/73 Pulse Oximetry 96 98 11/25/21 08:00 11/25/21 10:58 Temperature Pulse Rate 86 88 Respiratory Rate Blood Pressure 102/64 102/64 Pulse Oximetry BMI result Body Mass Index 27.3 Labs Results: 11/19/21 13:21 11/22/21 07:54 Imaging Radiology Impressions: ITS Impressions Foot X-Ray 11/08/21 17:32 IMPRESSION: Tiny Achilles heel spur. Otherwise unremarkable appearance of the left foot. Cervical Spine X-Ray 11/22/21 14:50 IMPRESSION: No fracture or malalignment. Mild degenerative changes. Forearm X-Ray 11/22/21 14:50 IMPRESSION: No acute fractures or malalignment within the imaged left upper extremity. Hip X-Ray 11/22/21 14:50 IMPRESSION: No acute fractures or malalignment. Humerus X-Ray 11/22/21 14:50 IMPRESSION: No acute fractures or malalignment within the imaged left upper extremity. Shoulder X-Ray 11/22/21 14:50 IMPRESSION: No acute fractures or malalignment within the imaged left upper extremity. Medications Medications Current Medications Acetaminophen (Acetaminophen 325 Mg Tablet) 650 mg PO Q6H PRN PRN Reason: Headache/Pain Mild Scale (1-3) Al Hydroxide/Mg Hydroxide (Magnesium Hydrox/Alum Hydrox 30 Ml Oral.Susp) 30 ml PO Q6H PRN PRN Reason: Heartburn/Nausea Enoxaparin Sodium (Enoxaparin Sodium 40 Mg/0.4 Ml Syringe) 40 mg SUBCUT 2100 [facility] Last Admin: 11/24/21 20:35 Dose: 40 mg Documented by: Hydroxyzine HCl (Hydroxyzine Hcl 25 Mg Tablet) 25 mg PO Q6H PRN PRN Reason: Anxiety Last Admin: 11/17/21 15:11 Dose: 25 mg Documented by: Loperamide HCl (Loperamide Hcl 2 Mg Capsule) 2 mg PO Q6H PRN PRN Reason: Diarrhea Last Admin: 11/17/21 13:40 Dose: 2 mg Documented by: Lorazepam (Lorazepam 0.5 Mg Tablet) 0.5 mg PO TID [facility] Last Admin: 11/25/21 08:43 Dose: 0.5 mg Documented by: Magnesium Hydroxide (Milk Of Magnesia 30 Ml Oral.Susp) 30 ml PO DAILY PRN PRN Reason: Constipation Omeprazole (Omeprazole 40 Mg Capsule.Dr) 40 mg PO DAILY@0630 [facility] Last Admin: 11/25/21 06:10 Dose: 40 mg Documented by: Oxcarbazepine (Oxcarbazepine 300 Mg Tablet) 300 mg PO BID [facility] Last Admin: 11/25/21 08:43 Dose: 300 mg Documented by: Risperidone (Risperidone 0.5 Mg Tablet) 1.5 mg PO BEDTIME [facility] Last Admin: 11/24/21 20:34 Dose: 1.5 mg Documented by: Sertraline HCl (Sertraline Hcl 25 Mg Tablet) 75 mg PO BEDTIME [facility] Last Admin: 11/24/21 20:34 Dose: 75 mg Documented by: Sucralfate (Sucralfate 1 Gm Tablet) 1 gm PO QIDACHS [facility] Last Admin: 11/25/21 11:06 Dose: 1 gm Documented by: Trazodone HCl (Trazodone Hcl 50 Mg Tablet) 50 mg PO BEDTIME PRN PRN Reason: Insomnia Allergies Allergies Allergy/AdvReac Type Severity Reaction Status Date / Time No Known Allergies Allergy Unverified 11/07/21 21:23 Assessment & Plan Assessment & Plan (1) MDD (major depressive disorder), recurrent, severe, with psychosis: Status: Acute Code(s): F33.3 - Major depressive disorder, recurrent, severe with psychotic symptoms Assessment and Plan: Pt is a 56 y.o. male who is presenting with new onset psych sx of somatic delusions, decompensation in self care, depressed mood, and perseverative thought process x 3 months. 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 He is a , unemployed, and lives with his family. No concerns for illicit substance use or alcohol abuse. Denies trauma hx. Pt is presenting with gradually worsening sx. No hx of TBI. Has had brief trials on lexapro and wellbutrin, however denies benefit. Recently started on zydis at [facility] during medical admission per psych consult. Plan: Will order foot xray due to pt complaining of pain on top of foot to the point that he cannot ambulate, has non-pitting edema. Offered Lloyd stockings, however pt declined. Says he has been mostly sedentary, encouraged him to try to walk as tolerated. Will re-order EKG, due to T wave abnormality and consult with hospitalist as needed. Will continue zyprexa 5 mg QHS to target sx of somatic delusions, bizarre thought process, and anxiety. Pt presents as internally preoccupied, depressed, withdrawn, and suspicious. Will obtain collateral information (pt is refusing to sign release for talking to his at this time).? 11/09: Will start start sertraline 50 mg QHS to target sx of OCD with poor insight, depression. Will re-start ativan 1 mg Q6H PRN, as reports this was helpful for pt and he became more responsive on ativan. 11/10: Continue sertraline 50 mg and monitor for benefit. Lovenox started per recommendation of hospitalist for DVT prevention, as pt is immobile, despondent lying down in bed. 11/11: reviewed EKG. WIll increase sertraline to 75 mg and monitor for benefit. 11/13/21: Increase Olanzapine to 7.5 mg HS. Today pt with dysphoria, treatment resistence. Work on alliance and engaging pt in his plan of care. 11/14/21: Continue current regime. 11/15/21: Increase Olanzapine to 10 mg HS. Continue to work on alliance. 11/16/21 Continue treatment plan 11/17/21 Continue treatment plan 11/18/21 continue treatment plan encourage prn atarax for anxiety 11/19/21: Regime not effective. Pt agrees to changes 1. Discontinue Olanzapine. 2. Risperdal 1.5 mg HS- for clarity of thought 3. Ativan 0.5 mg tid-for mgt of anxiety 4. Trileptal 150 mg bid- mood stabilization. Monitor response to medications. Monitor for safety in the milieu. Discharge on stabilization. Patient seen. Chart reviewed. Discussed with team. Obtain collateral contact info?as needed 11/21/21: Continue current regime-no medication changes today. Observe 11/22/21: Increase Trileptal to 300 mg bid 1/7/22: Continue current regime ECT consultation 11/24- no medication changes 11/25 continue current medications. I spent minutes with the patient and/or on the patient floor today, greater than?50% of which was spent counseling/coordinating care. Reason for contiued inpatient stay Substantial Risk for: inability to function
[2021-11-25] MEDS: risperiDONE 0.5 MG TABLET 1.5 MG PO (20:10)
[2021-11-25] MEDS: Sertraline HCL 25 MG TABLET 75 MG PO (20:11)
[2021-11-25] MEDS: Enoxaparin Sodium 40 MG/0.4 ML SYRINGE SUBCUT (20:11)
[2021-11-26 06:00] VITALS: BP 95/50; PULSE 63; RESP 16; TEMP 36.9; O2SAT 97
[2021-11-26] MEDS: Sucralfate 1 GM TABLET PO ×4 (06:46→20:31)
[2021-11-26] MEDS: Omeprazole 40 MG CAPSULE.DR PO (06:47)
[2021-11-26 08:00] VITALS: BP 106/69; PULSE 91
[2021-11-26] MEDS: LORazepam 0.5 MG TABLET PO ×3 (08:25→20:31)
[2021-11-26] MEDS: OXcarbazepine 300 MG TABLET PO ×2 (08:25→20:31)
--- NOTE | 2021-11-26 12:36 | HO.PSYCHPN ---
Subjective Subjective Date of Service: 11/26/21 Reason For Visit: unspecified bipolar and related d/o Subjective Notes: Section 7 Healthcare Proxy: No Guardianship: No Medical Problems Affecting Mental Status: No Interim History: Discussed with pt signing a conditional voluntary admission form as he is accepting of treatment, medications and is working on some of his symptoms. He is resistant but will consider. Discussed symptoms-he reports that there is no change in how he feels-but questions if this is depression-thinks there is a terminal process going on that we cannot monitor. Consult pending with Dr. Inman for evaluation for ECT which he agrees to participate in. Review of xray results from reported complaints of fall- hip,shoulder,humerus negative for fracture. Denies any pain today. Encouraged to be out of bed as much as possible (it appears pt's pattern is to be more visable and in milieu during the evening hours). Discussed Sertraline titration to 100 mg-will begin this evening. Pt had several questions regarding court date and where he would be sent for six month commitment. Education provided. Asked about all of the LTC options for patients and where he might go. Discussed with pt our goal of treating current depressive/?bipolar presentation and having him return home to , family, work, life. He does not have interest in this he reports. Discussed with pt that it seems that there may be some psychosocial details that he has not shared and asked if there were again any stressors which possibly increased current symptom presentation. He is vague and diverting in response to this. Medication Compliance: Yes Side effects from medications: No Attending Groups: Intermittent Review of Systems Orthostasis 106/69 89/59 Medical Review of Systems: unchanged Review of Systems Reports behavioral changes and Reports memory loss Psychiatric: Reports anxiety, Reports behavioral changes, Reports depression, Reports difficulty concentrating, Reports auditory hallucinations (denies), Reports hopelessness, Reports anhedonia and Reports memory loss Mental Status Exam Mental Status Exam Patient Appearance: Disheveled Patient Orientation: Person, Place, Time and Situation Level of Consciousness: Alert Patient Behavior: Talkative Mood Description: Apathetic, Withdrawn, Depressed, Hostile (sarcasm) and Flat Affect Description: Flat Patient Cognition Impaired: No Ability to Follow Directions: Good Speech Pattern: Spontaneous Speech Memory Description: Episodic Impaired Hallucinations: None Delusions: Not Present Thought Process: Rumination Thought Content: positive for [place], positive for Perseveration and positive for Evasive Depressive Symptoms: Diff. Making Decisions, Sleeping More Than Usual, Loss of Int. in Activity, Feelings of Worthlessness, Hopelessness, Isolating-Friends/Family, Unhappiness, Increased Fatigue, Thoughts of /Suicide (denies active intent), Low Self Esteem, Loss of Energy and Difficulty Concentrating Judgement: Fair Diagnostics Vital Signs (24Hr): Vital Signs - 24 hr 11/25/21 15:56 11/25/21 15:57 11/25/21 20:00 Temperature Pulse Rate 88 101 H 89 Respiratory Rate Blood Pressure 100/59 L 117/59 L 92/60 Pulse Oximetry 11/25/21 20:30 11/25/21 20:33 11/26/21 06:00 Temperature 98.1 F 98.5 F Pulse Rate 89 104 H 63 Respiratory Rate 16 16 Blood Pressure 92/60 104/53 L 95/50 L Pulse Oximetry 98 97 11/26/21 08:00 Temperature Pulse Rate 91 Respiratory Rate Blood Pressure 106/69 Pulse Oximetry BMI result Body Mass Index 27.3 Labs Results: 11/19/21 13:21 11/22/21 07:54 Imaging Radiology Impressions: ITS Impressions Foot X-Ray 11/08/21 17:32 IMPRESSION: Tiny Achilles heel spur. Otherwise unremarkable appearance of the left foot. Cervical Spine X-Ray 11/22/21 14:50 IMPRESSION: No fracture or malalignment. Mild degenerative changes. Forearm X-Ray 11/22/21 14:50 IMPRESSION: No acute fractures or malalignment within the imaged left upper extremity. Hip X-Ray 11/22/21 14:50 IMPRESSION: No acute fractures or malalignment. Humerus X-Ray 11/22/21 14:50 IMPRESSION: No acute fractures or malalignment within the imaged left upper extremity. Shoulder X-Ray 11/22/21 14:50 IMPRESSION: No acute fractures or malalignment within the imaged left upper extremity. Medications Medications Current Medications Acetaminophen (Acetaminophen 325 Mg Tablet) 650 mg PO Q6H PRN PRN Reason: Headache/Pain Mild Scale (1-3) Al Hydroxide/Mg Hydroxide (Magnesium Hydrox/Alum Hydrox 30 Ml Oral.Susp) 30 ml PO Q6H PRN PRN Reason: Heartburn/Nausea Enoxaparin Sodium (Enoxaparin Sodium 40 Mg/0.4 Ml Syringe) 40 mg SUBCUT 2100 [facility] Last Admin: 11/25/21 20:11 Dose: 40 mg Documented by: Hydroxyzine HCl (Hydroxyzine Hcl 25 Mg Tablet) 25 mg PO Q6H PRN PRN Reason: Anxiety Last Admin: 11/17/21 15:11 Dose: 25 mg Documented by: Loperamide HCl (Loperamide Hcl 2 Mg Capsule) 2 mg PO Q6H PRN PRN Reason: Diarrhea Last Admin: 11/17/21 13:40 Dose: 2 mg Documented by: Lorazepam (Lorazepam 0.5 Mg Tablet) 0.5 mg PO TID [facility] Last Admin: 11/26/21 08:25 Dose: 0.5 mg Documented by: Magnesium Hydroxide (Milk Of Magnesia 30 Ml Oral.Susp) 30 ml PO DAILY PRN PRN Reason: Constipation Omeprazole (Omeprazole 40 Mg Capsule.Dr) 40 mg PO DAILY@0630 [facility] Last Admin: 11/26/21 06:47 Dose: 40 mg Documented by: Oxcarbazepine (Oxcarbazepine 300 Mg Tablet) 300 mg PO BID [facility] Last Admin: 11/26/21 08:25 Dose: 300 mg Documented by: Risperidone (Risperidone 0.5 Mg Tablet) 1.5 mg PO BEDTIME [facility] Last Admin: 11/25/21 20:10 Dose: 1.5 mg Documented by: Sertraline HCl (Sertraline Hcl 25 Mg Tablet) 75 mg PO BEDTIME [facility] Last Admin: 11/25/21 20:11 Dose: 75 mg Documented by: Sucralfate (Sucralfate 1 Gm Tablet) 1 gm PO QIDACHS [facility] Last Admin: 11/26/21 11:00 Dose: 1 gm Documented by: Trazodone HCl (Trazodone Hcl 50 Mg Tablet) 50 mg PO BEDTIME PRN PRN Reason: Insomnia Allergies Allergies Allergy/AdvReac Type Severity Reaction Status Date / Time No Known Allergies Allergy Unverified 11/07/21 21:23 Assessment & Plan Assessment & Plan (1) MDD (major depressive disorder), recurrent, severe, with psychosis: Status: Acute Code(s): F33.3 - Major depressive disorder, recurrent, severe with psychotic symptoms Assessment and Plan: Pt is a 56 y.o. male who is presenting with new onset psych sx of somatic delusions, decompensation in self care, depressed mood, and perseverative thought process x 3 months. 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 He is a , unemployed, and lives with his family. No concerns for illicit substance use or alcohol abuse. Denies trauma hx. Pt is presenting with gradually worsening sx. No hx of TBI. Has had brief trials on lexapro and wellbutrin, however denies benefit. Recently started on zydis at [facility] during medical admission per psych consult. Plan: Will order foot xray due to pt complaining of pain on top of foot to the point that he cannot ambulate, has non-pitting edema. Offered Lloyd stockings, however pt declined. Says he has been mostly sedentary, encouraged him to try to walk as tolerated. Will re-order EKG, due to T wave abnormality and consult with hospitalist as needed. Will continue zyprexa 5 mg QHS to target sx of somatic delusions, bizarre thought process, and anxiety. Pt presents as internally preoccupied, depressed, withdrawn, and suspicious. Will obtain collateral information (pt is refusing to sign release for talking to his at this time).? 11/09: Will start start sertraline 50 mg QHS to target sx of OCD with poor insight, depression. Will re-start ativan 1 mg Q6H PRN, as reports this was helpful for pt and he became more responsive on ativan. 11/10: Continue sertraline 50 mg and monitor for benefit. Lovenox started per recommendation of hospitalist for DVT prevention, as pt is immobile, despondent lying down in bed. 11/11: reviewed EKG. WIll increase sertraline to 75 mg and monitor for benefit. 11/13/21: Increase Olanzapine to 7.5 mg HS. Today pt with dysphoria, treatment resistence. Work on alliance and engaging pt in his plan of care. 11/14/21: Continue current regime. 11/15/21: Increase Olanzapine to 10 mg HS. Continue to work on alliance. 11/16/21 Continue treatment plan 11/17/21 Continue treatment plan 11/18/21 continue treatment plan encourage prn atarax for anxiety 11/19/21: Regime not effective. Pt agrees to changes 1. Discontinue Olanzapine. 2. Risperdal 1.5 mg HS- for clarity of thought 3. Ativan 0.5 mg tid-for mgt of anxiety 4. Trileptal 150 mg bid- mood stabilization. Monitor response to medications. Monitor for safety in the milieu. Discharge on stabilization. Patient seen. Chart reviewed. Discussed with team. Obtain collateral contact info?as needed 11/21/21: Continue current regime-no medication changes today. Observe 11/22/21: Increase Trileptal to 300 mg bid 11/23/21: Continue current regime ECT consultation 11/24- no medication changes 11/25 continue current medications. 11/26/21: Pt considering signing a conditional voluntary Pt agrees to consult with Dr. Inman for ECT consideration. Increase Sertraline to 100 mg daily Continue to explore with Gerry possible psychosocial circumstances leading to increase in symptoms. I spent 45 minutes with the patient and/or on the patient floor today, greater than?50% of which was spent counseling/coordinating care. Patient educated on: medication risk/benefits, therapeutic strategies and other Informed Consent: understands Reason for contiued inpatient stay Substantial Risk for: inability to function, rapid decompensation and med/psych decompensation
[2021-11-26 18:00] VITALS: BP 114/56; PULSE 71; TEMP 37
[2021-11-26] MEDS: risperiDONE 0.5 MG TABLET 1.5 MG PO (20:31)
[2021-11-26] MEDS: Sertraline HCL 100 MG TABLET PO (20:31)
[2021-11-26] MEDS: Enoxaparin Sodium 40 MG/0.4 ML SYRINGE SUBCUT (20:31)
[2021-11-27 06:00] VITALS: BP 122/70; PULSE 74; RESP 16; TEMP 36.6; O2SAT 97
[2021-11-27] MEDS: Omeprazole 40 MG CAPSULE.DR PO (06:26)
[2021-11-27] MEDS: OXcarbazepine 300 MG TABLET PO ×2 (08:48→22:10)
[2021-11-27] MEDS: Sucralfate 1 GM TABLET PO ×3 (08:48→22:10)
[2021-11-27] MEDS: LORazepam 0.5 MG TABLET PO ×3 (08:48→22:10)
--- NOTE | 2021-11-27 12:45 | P.CONWO_ITS ---
History of Present Illness Data of Consult Service Date: 11/27/21 Requesting physician: Miranda Mueller Primary Care Provider: Ama Kilgore DO HPI Reason for consult: left index finger wound 56-year-old male admitted for MDD and psychosis who was seen at [facility] about 1 month ago by Orthopedics. It sounds like he had a paronychia by way of pus blister along the medial aspect of the index finger along the nail. He reports that it was incised and he was to follow-up with orthopedics but was unable to due to this admission. As of now, Xeroform is being used topically with dry clean dressing. Denies fever. Denies drainage of blood purulence or serous fluid. Pain is manageable. Review of Systems Review of Systems: Yes all other systems are reviewed and are negative [facility] Medical History (Updated 11/27/21 @ 12:48 by MOISÉS Miller) Gram-negative bacteremia Social History Household Members: Spouse and Children Household Members Other:: and Three Children ages 11, 13, 15 Housing: House Do you presently have visiting nurse or other home services: No Patient Tobacco Use Status: Never used Tobacco Use of substances other than those prescribed or required for medical reasons: No Currently Displaying Signs/Symptoms of Drug Intoxication Withdrawal: No Have you been hit, kicked, punched, or otherwise hurt by someone within the past year? If so, by whom?: No Do you feel safe in your current relationship?: Yes Is there a partner from a previous relationship who is making you feel unsafe now?: No Are you made to feel afraid or neglected: No Advance Directives: No Advance Directives Information Provided: No Do you have thoughts of harming others: None Do you have a plan to hurt others: No Plan Recently lost weight without trying: No Eating poorly because of decreased appetite: No Nutrition Risks: No Nutritional Risk Poor oral hygiene: No service: No ([employer] [id number]) Sexual orientation: Straight/Heterosexual Meds Allergies Allergy/AdvReac Type Severity Reaction Status Date / Time No Known Allergies Allergy Unverified 11/07/21 21:23 Active Medications: Current Medications Acetaminophen (Acetaminophen 325 Mg Tablet) 650 mg PO Q6H PRN PRN Reason: Headache/Pain Mild Scale (1-3) Al Hydroxide/Mg Hydroxide (Magnesium Hydrox/Alum Hydrox 30 Ml Oral.Susp) 30 ml PO Q6H PRN PRN Reason: Heartburn/Nausea Enoxaparin Sodium (Enoxaparin Sodium 40 Mg/0.4 Ml Syringe) 40 mg SUBCUT 2100 [facility] Last Admin: 11/26/21 20:31 Dose: 40 mg Documented by: Hydroxyzine HCl (Hydroxyzine Hcl 25 Mg Tablet) 25 mg PO Q6H PRN PRN Reason: Anxiety Last Admin: 11/17/21 15:11 Dose: 25 mg Documented by: Loperamide HCl (Loperamide Hcl 2 Mg Capsule) 2 mg PO Q6H PRN PRN Reason: Diarrhea Last Admin: 11/17/21 13:40 Dose: 2 mg Documented by: Lorazepam (Lorazepam 0.5 Mg Tablet) 0.5 mg PO TID [facility] Last Admin: 11/27/21 08:48 Dose: 0.5 mg Documented by: Magnesium Hydroxide (Milk Of Magnesia 30 Ml Oral.Susp) 30 ml PO DAILY PRN PRN Reason: Constipation Omeprazole (Omeprazole 40 Mg Capsule.Dr) 40 mg PO DAILY@0630 [facility] Last Admin: 11/27/21 06:26 Dose: 40 mg Documented by: Oxcarbazepine (Oxcarbazepine 300 Mg Tablet) 300 mg PO BID [facility] Last Admin: 11/27/21 08:48 Dose: 300 mg Documented by: Risperidone (Risperidone 0.5 Mg Tablet) 1.5 mg PO BEDTIME [facility] Last Admin: 11/26/21 20:31 Dose: 1.5 mg Documented by: Sertraline HCl (Sertraline Hcl 100 Mg Tablet) 100 mg PO BEDTIME [facility] Last Admin: 11/26/21 20:31 Dose: 100 mg Documented by: Sucralfate (Sucralfate 1 Gm Tablet) 1 gm PO QIDACHS [facility] Last Admin: 11/27/21 08:48 Dose: 1 gm Documented by: Trazodone HCl (Trazodone Hcl 50 Mg Tablet) 50 mg PO BEDTIME PRN PRN Reason: Insomnia Physical Exam Vital Signs and Narrative: Vital Signs: Last Vital Signs Temp 97.8 F 11/27/21 06:00 Pulse 74 11/27/21 06:00 Resp 16 11/27/21 06:00 BP 122/70 11/27/21 06:00 Pulse Ox 97 11/27/21 06:00 BMI result Body Mass Index 27.3 Left radial pulse is palpable. No edema erythema streaking or warmth of the affected extremity. There is a linear incision along the medial aspect of the nail on the 2nd ray. There is no expression of pus. There is no redness or swelling to suggest active infection or cellulitis. It looks to be healing by secondary intention. Results Labs CBC and Chem 7: 11/19/21 13:21 11/22/21 07:54 Assessment and Plan (1) Paronychia of finger of left hand: Status: Acute No change in dressing orders. Xeroform is most appropriate followed by dry clean dressing changed every other day. The patient does not feel that he will be able to follow-up with orthopedics upon discharge from this inpatient setting. He can probably follow up with his primary care physician and [facility] consultation is not necessary after discharge. Ensure adequate protein intake.
--- NOTE | 2021-11-27 20:49 | HO.PSYCHPN ---
Subjective Subjective Date of Service: 11/27/21 Reason For Visit: unspecified bipolar and related d/o Subjective Notes: Conditional Voluntary Healthcare Proxy: Yes (not invoked) Interim History: Patient seen chart reviewed case discussed with psychiatric nurse practitioner and with . The patient has been mostly in bed coming out of his room for brief periods he remains disheveled perplexed often answering questions and have a again distant way. Patient often irritable withdrawn some difficulty with concentration wearing hospital [facility] is not grooming Medication Compliance: Yes Attending Groups: No Review of Systems Recently treated for finger infection question osteomyelitis. Patient's states brain MRI with and without contrast reportedly was within normal limits 2 months ago Mental Status Exam Mental Status Exam Patient Appearance: Disheveled Patient Orientation: Person, Place, Time and Situation Level of Consciousness: Alert and Lethargic Patient Behavior: Passive and Fatigued Mood Description: Apathetic, Withdrawn, Depressed and Flat Affect Description: Blunted and Flat Patient Cognition Impaired: No Ability to Follow Directions: Good Speech Pattern: Impoverished and Spontaneous Speech Memory Description: Episodic Impaired Hallucinations: None Delusions: Not Present Thought Process: Distracted, Rumination and Slowed Thinking Thought Content: positive for [place], positive for Perseveration, positive for Evasive, negative for Suicidal Ideation or negative for Homicidal Ideation Depressive Symptoms: Diff. Making Decisions, Sleeping More Than Usual, Loss of Int. in Activity, Feelings of Worthlessness, Hopelessness, Isolating-Friends/Family, Unhappiness, Increased Fatigue, Thoughts of /Suicide (denies active intent), Low Self Esteem, Loss of Energy and Difficulty Concentrating Judgement: Fair Diagnostics Vital Signs (24Hr): Vital Signs - 24 hr 11/27/21 20:56 11/28/21 06:00 11/28/21 06:58 Temperature 98.6 F 97.4 F Pulse Rate 80 62 62 Respiratory Rate 14 16 Blood Pressure 117/68 125/70 125/70 Pulse Oximetry 93 98 BMI result Body Mass Index 27.3 Labs Results: 11/19/21 13:21 11/22/21 07:54 Imaging Radiology Impressions: ITS Impressions Foot X-Ray 11/08/21 17:32 IMPRESSION: Tiny Achilles heel spur. Otherwise unremarkable appearance of the left foot. Cervical Spine X-Ray 11/22/21 14:50 IMPRESSION: No fracture or malalignment. Mild degenerative changes. Forearm X-Ray 11/22/21 14:50 IMPRESSION: No acute fractures or malalignment within the imaged left upper extremity. Hip X-Ray 11/22/21 14:50 IMPRESSION: No acute fractures or malalignment. Humerus X-Ray 11/22/21 14:50 IMPRESSION: No acute fractures or malalignment within the imaged left upper extremity. Shoulder X-Ray 11/22/21 14:50 IMPRESSION: No acute fractures or malalignment within the imaged left upper extremity. Medications Medications Current Medications Acetaminophen (Acetaminophen 325 Mg Tablet) 650 mg PO Q6H PRN PRN Reason: Headache/Pain Mild Scale (1-3) Al Hydroxide/Mg Hydroxide (Magnesium Hydrox/Alum Hydrox 30 Ml Oral.Susp) 30 ml PO Q6H PRN PRN Reason: Heartburn/Nausea Aripiprazole (Aripiprazole 5 Mg Tablet) 5 mg PO DAILY [facility] [place] Last Admin: 11/28/21 08:52 Dose: 5 mg Documented by: Enoxaparin Sodium (Enoxaparin Sodium 40 Mg/0.4 Ml Syringe) 40 mg SUBCUT 2100 [facility] Last Admin: 11/27/21 22:10 Dose: 40 mg Documented by: Hydroxyzine HCl (Hydroxyzine Hcl 25 Mg Tablet) 25 mg PO Q6H PRN PRN Reason: Anxiety Last Admin: 11/17/21 15:11 Dose: 25 mg Documented by: Loperamide HCl (Loperamide Hcl 2 Mg Capsule) 2 mg PO Q6H PRN PRN Reason: Diarrhea Last Admin: 11/17/21 13:40 Dose: 2 mg Documented by: Lorazepam (Lorazepam 0.5 Mg Tablet) 0.5 mg PO TID [facility] [place] Last Admin: 11/28/21 08:52 Dose: 0.5 mg Documented by: Magnesium Hydroxide (Milk Of Magnesia 30 Ml Oral.Susp) 30 ml PO DAILY PRN PRN Reason: Constipation Omeprazole (Omeprazole 40 Mg Capsule.Dr) 40 mg PO DAILY@0630 [facility] [place] Last Admin: 11/28/21 06:44 Dose: 40 mg Documented by: Oxcarbazepine (Oxcarbazepine 300 Mg Tablet) 300 mg PO BID [facility] [place] Last Admin: 11/28/21 08:52 Dose: 300 mg Documented by: Risperidone (Risperidone 0.5 Mg Tablet) 1.5 mg PO BEDTIME [facility] [place] Last Admin: 11/27/21 22:10 Dose: 1.5 mg Documented by: Sertraline HCl (Sertraline Hcl 100 Mg Tablet) 100 mg PO BEDTIME [facility] [place] Last Admin: 11/27/21 22:10 Dose: 100 mg Documented by: Sucralfate (Sucralfate 1 Gm Tablet) 1 gm PO QIDACHS [facility] [place] Last Admin: 11/28/21 06:44 Dose: 1 gm Documented by: Trazodone HCl (Trazodone Hcl 50 Mg Tablet) 50 mg PO BEDTIME PRN PRN Reason: Insomnia Allergies Allergies Allergy/AdvReac Type Severity Reaction Status Date / Time No Known Allergies Allergy Unverified 11/07/21 21:23 Assessment & Plan Assessment & Plan (1) MDD (major depressive disorder), recurrent, severe, with psychosis: Status: Acute Code(s): F33.3 - Major depressive disorder, recurrent, severe with psychotic symptoms Assessment and Plan: Patient seen chart reviewed case reviewed with Miranda Guzman nurse practitioner and his . The patient has experienced a number of perceived losses over the past year including his old this son going to [place] to [employer] selling their sailboat which had been a major feature in his life. Patient typically can be somewhat sentimental has a difficult time with transitions to some degree but no significant psychiatric history parted approximately 2-3 months ago. The patient was somewhat obsessional anxious depressed but there was some reported response to prior antidepressant trial as an outpatient. The patient had a severe exacerbation of symptoms great fear anxiety and somatic fears after he was treated surgically and developed an infection. The patient has a difficult time expressing his feelings but his cognitive dulling periods of irrational thinking poverty of content severe withdrawal cognitive dulling often being bed ridden are most consistent with major depression with psychotic features 11/09: Will start start sertraline 50 mg QHS to target sx of OCD with poor insight, depression. Will re-start ativan 1 mg Q6H PRN, as reports this was helpful for pt and he became more responsive on ativan. 11/10: Continue sertraline 50 mg and monitor for benefit. Lovenox started per recommendation of hospitalist for DVT prevention, as pt is immobile, despondent lying down in bed. 11/11: reviewed EKG. WIll increase sertraline to 75 mg and monitor for benefit. 11/13/21: Increase Olanzapine to 7.5 mg HS. Today pt with dysphoria, treatment resistence. Work on alliance and engaging pt in his plan of care. 11/14/21: Continue current regime. 11/15/21: Increase Olanzapine to 10 mg HS. Continue to work on alliance. 11/16/21 Continue treatment plan 11/17/21 Continue treatment plan 11/18/21 continue treatment plan encourage prn atarax for anxiety 11/19/21: Regime not effective. Pt agrees to changes 1. Discontinue Olanzapine. 2. Risperdal 1.5 mg HS- for clarity of thought 3. Ativan 0.5 mg tid-for mgt of anxiety 4. Trileptal 150 mg bid- mood stabilization. Monitor response to medications. Monitor for safety in the milieu. Discharge on stabilization. Patient seen. Chart reviewed. Discussed with team. Obtain collateral contact info?as needed 11/21/21: Continue current regime-no medication changes today. Observe 11/22/21: Increase Trileptal to 300 mg bid 11/23/21: Continue current regime ECT consultation 11/24- no medication changes 11/25 continue current medications. 11/26/21: Pt considering signing a conditional voluntary Pt agrees to consult with Dr. Inman for ECT consideration. Increase Sertraline to 100 mg daily Continue to explore with Gerry possible psychosocial circumstances leading to increase in symptoms. 11/27/2021 Patient's diagnosis seems most consistent with major depression with psychotic features. Which trying get confirmation of brain MRI given patient's marked change in behavior and severe depressive symptoms periods of irrational thinking and melancholic symptoms of fatigue lethargy cognitive dulling marked decreased appetite. Would make sure no metabolic reasons for the above otherwise would aggressively treat for psychotic depression. Increase antidepressant trial as tolerated agree with lorazepam for pre catatonic like symptoms and would try Abilify for psychotic depression. If above not effective would consider ECT. Patient was unable to take information regarding ECT when seen literature given and literature also reviewed with patient's . She is reportedly healthcare proxy and this could become a consideration. For now patient showing some improvement. Monitor for hypotension Abilify encourage fluids I spent minutes with the patient and/or on the patient floor today, greater than?50% of which was spent counseling/coordinating care. Reason for contiued inpatient stay Substantial Risk for: inability to function and rapid decompensation
[2021-11-27 20:56] VITALS: BP 117/68; PULSE 80; RESP 14; TEMP 37; O2SAT 93
[2021-11-27] MEDS: risperiDONE 0.5 MG TABLET 1.5 MG PO (22:10)
[2021-11-27] MEDS: Enoxaparin Sodium 40 MG/0.4 ML SYRINGE SUBCUT (22:10)
[2021-11-27] MEDS: Sertraline HCL 100 MG TABLET PO (22:10)
[2021-11-28 06:00] VITALS: BP 125/70; PULSE 62; RESP 16; TEMP 36.3; O2SAT 98
[2021-11-28] MEDS: Omeprazole 40 MG CAPSULE.DR PO (06:44)
[2021-11-28] MEDS: Sucralfate 1 GM TABLET PO ×3 (06:44→20:08)
[2021-11-28 06:58] VITALS: BP 125/70; PULSE 62
[2021-11-28] MEDS: OXcarbazepine 300 MG TABLET PO ×2 (08:52→20:08)
[2021-11-28] MEDS: LORazepam 0.5 MG TABLET PO ×3 (08:52→20:08)
[2021-11-28] MEDS: ARIPiprazole 5 MG TABLET PO (08:52)
[2021-11-28 11:00] VITALS: BP 104/55; BP 119/72; BP 90/54; PULSE 102; PULSE 74; PULSE 92
--- NOTE | 2021-11-28 11:21 | PC.NURSE ---
Iman REEDER notified of orthostatic vital signs
--- NOTE | 2021-11-28 11:49 | P.PNPSI_ITS ---
Subjective Subjective Date of Service: 11/28/21 Reason For Visit: unspecified bipolar and related d/o Subjective Notes: Section 7 Healthcare Proxy: No Guardianship: No Medical Problems Affecting Mental Status: No Interim History: No response from Abilify initiation yet. Anergic, amotivated, not wanting to talk much Medication Compliance: Yes Side effects from medications: No Attending Groups: No Review of Systems Acute medical concerns: No Medical Review of Systems: unchanged Review of Systems Reports behavioral changes, Reports confusion and Reports memory loss Psychiatric: Reports abnormal sleep pattern, Reports anxiety, Reports behavioral changes, Reports confusion, Reports depression, Reports difficulty concentrating, Reports hopelessness, Reports irritability, Reports anhedonia, Reports memory loss, Reports mood swings and Reports paranoia Mental Status Exam Mental Status Exam Patient Appearance: Disheveled Patient Orientation: Person, Place, Time and Situation Level of Consciousness: Alert and Lethargic Patient Behavior: Passive and Fatigued Mood Description: Apathetic, Withdrawn, Depressed and Flat Affect Description: Blunted and Flat Patient Cognition Impaired: No Ability to Follow Directions: Good Speech Pattern: Impoverished and Spontaneous Speech Memory Description: Episodic Impaired Hallucinations: None Delusions: Not Present Thought Process: Distracted, Rumination and Slowed Thinking Thought Content: positive for [place], positive for Perseveration, positive for Evasive, negative for Suicidal Ideation or negative for Homicidal Ideation Depressive Symptoms: Diff. Making Decisions, Sleeping More Than Usual, Loss of Int. in Activity, Feelings of Worthlessness, Hopelessness, Isolating- Friends/Family, Unhappiness, Increased Fatigue, Thoughts of /Suicide (denies active intent), Low Self Esteem, Loss of Energy and Difficulty Concent rating Judgement: Fair Diagnostics Vital Signs (24Hr): Vital Signs - 24 hr 11/27/21 20:56 11/28/21 06:00 11/28/21 06:58 Temperature 98.6 F 97.4 F Pulse Rate 80 62 62 Respiratory Rate 14 16 Blood Pressure 117/68 125/70 125/70 Pulse Oximetry 93 98 11/28/21 11:00 Temperature Pulse Rate 102 H Respiratory Rate Blood Pressure 90/54 L Pulse Oximetry BMI result Body Mass Index 27.3 Labs Results: 11/19/21 13:21 11/22/21 07:54 Imaging Radiology Impressions: ITS Impressions Foot X-Ray 11/08/21 17:32 IMPRESSION: Tiny Achilles heel spur. Otherwise unremarkable appearance of the left foot. Cervical Spine X-Ray 11/22/21 14:50 IMPRESSION: No fracture or malalignment. Mild degenerative changes. Forearm X-Ray 11/22/21 14:50 IMPRESSION: No acute fractures or malalignment within the imaged left upper extremity. Hip X-Ray 11/22/21 14:50 IMPRESSION: No acute fractures or malalignment. Humerus X-Ray 11/22/21 14:50 IMPRESSION: No acute fractures or malalignment within the imaged left upper extremity. Shoulder X-Ray 11/22/21 14:50 IMPRESSION: No acute fractures or malalignment within the imaged left upper extremity. Medications Medications Current Medications Acetaminophen (Acetaminophen 325 Mg Tablet) 650 mg PO Q6H PRN PRN Reason: Headache/Pain Mild Scale (1-3) Al Hydroxide/Mg Hydroxide (Magnesium Hydrox/Alum Hydrox 30 Ml Oral.Susp) 30 ml PO Q6H PRN PRN Reason: Heartburn/Nausea Aripiprazole (Aripiprazole 5 Mg Tablet) 5 mg PO DAILY [facility] Last Admin: 11/28/21 08:52 Dose: 5 mg Documented by: Enoxaparin Sodium (Enoxaparin Sodium 40 Mg/0.4 Ml Syringe) 40 mg SUBCUT 2100 [facility] Last Admin: 11/27/21 22:10 Dose: 40 mg Documented by: Hydroxyzine HCl (Hydroxyzine Hcl 25 Mg Tablet) 25 mg PO Q6H PRN PRN Reason: Anxiety Last Admin: 11/17/21 15:11 Dose: 25 mg Documented by: Loperamide HCl (Loperamide Hcl 2 Mg Capsule) 2 mg PO Q6H PRN PRN Reason: Diarrhea Last Admin: 11/17/21 13:40 Dose: 2 mg Documented by: Lorazepam (Lorazepam 0.5 Mg Tablet) 0.5 mg PO TID [facility] Last Admin: 11/28/21 08:52 Dose: 0.5 mg Documented by: Magnesium Hydroxide (Milk Of Magnesia 30 Ml Oral.Susp) 30 ml PO DAILY PRN PRN Reason: Constipation Omeprazole (Omeprazole 40 Mg Capsule.Dr) 40 mg PO DAILY@0630 [facility] Last Admin: 11/28/21 06:44 Dose: 40 mg Documented by: Oxcarbazepine (Oxcarbazepine 300 Mg Tablet) 300 mg PO BID [facility] Last Admin: 11/28/21 08:52 Dose: 300 mg Documented by: Risperidone (Risperidone 0.5 Mg Tablet) 1.5 mg PO BEDTIME [facility] Last Admin: 11/27/21 22:10 Dose: 1.5 mg Documented by: Sertraline HCl (Sertraline Hcl 100 Mg Tablet) 100 mg PO BEDTIME [facility] Last Admin: 11/27/21 22:10 Dose: 100 mg Documented by: Sucralfate (Sucralfate 1 Gm Tablet) 1 gm PO QIDACHS [facility] Last Admin: 11/28/21 11:25 Dose: 1 gm Documented by: Trazodone HCl (Trazodone Hcl 50 Mg Tablet) 50 mg PO BEDTIME PRN PRN Reason: Insomnia Allergies Allergies Allergy/AdvReac Type Severity Reaction Status Date / Time No Known Allergies Allergy Unverified 11/07/21 21:23 Assessment & Plan Assessment & Plan (1) MDD (major depressive disorder), recurrent, severe, with psychosis: Status: Acute Code(s): F33.3 - Major depressive disorder, recurrent, severe with psychotic symptoms Assessment and Plan: Patient seen chart reviewed case reviewed with Miranda Guzman nurse practitioner and his . The patient has experienced a number of perceived losses over the past year including his old this son going to [employer] to boarding school selling their sailboat which had been a major feature in his life. Patient typically can be somewhat sentimental has a difficult time with transitions to some degree but no significant psychiatric history parted approximately 2-3 months ago. The patient was somewhat obsessional anxious depressed but there was some reported response to prior antidepressant trial as an outpatient. The patient had a severe exacerbation of symptoms great fear anxiety and somatic fears after he was treated surgically and developed an infection. The patient has a difficult time expressing his feelings but his cognitive dulling periods of irrational thinking poverty of content severe withdrawal cognitive dulling often being bed ridden are most consistent with major depression with psychotic features 11/09: Will start start sertraline 50 mg QHS to target sx of OCD with poor insight, depression. Will re-start ativan 1 mg Q6H PRN, as reports this was helpful for pt and he became more responsive on ativan. 11/10: Continue sertraline 50 mg and monitor for benefit. Lovenox started per recommendation of hospitalist for DVT prevention, as pt is immobile, despondent lying down in bed. 11/11: reviewed EKG. WIll increase sertraline to 75 mg and monitor for benefit. 11/13/21: Increase Olanzapine to 7.5 mg HS. Today pt with dysphoria, treatment resistence. Work on alliance and engaging pt in his plan of care. 11/14/21: Continue current regime. 11/15/21: Increase Olanzapine to 10 mg HS. Continue to work on alliance. 11/16/21 Continue treatment plan 11/17/21 Continue treatment plan 11/18/21 continue treatment plan encourage prn atarax for anxiety 11/19/21: Regime not effective. Pt agrees to changes 1. Discontinue Olanzapine. 2. Risperdal 1.5 mg HS- for clarity of thought 3. Ativan 0.5 mg tid-for mgt of anxiety 4. Trileptal 150 mg bid- mood stabilization. Monitor response to medications. Monitor for safety in the milieu. Discharge on stabilization. Patient seen. Chart reviewed. Discussed with team. Obtain collateral contact info?as needed 11/21/21: Continue current regime-no medication changes today. Observe 11/22/21: Increase Trileptal to 300 mg bid 11/23/21: Continue current regime ECT consultation 11/24- no medication changes 11/25 continue current medications. 11/26/21: Pt considering signing a conditional voluntary Pt agrees to consult with Dr. Inman for ECT consideration. Increase Sertraline to 100 mg daily Continue to explore with Gerry possible psychosocial circumstances leading to increase in symptoms. 11/27/2021 Patient's diagnosis seems most consistent with major depression with psychotic features. Which trying get confirmation of brain MRI given patient's marked change in behavior and severe depressive symptoms periods of irrational thinking and melancholic symptoms of fatigue lethargy cognitive dulling marked decreased appetite. Would make sure no metabolic reasons for the above otherwise would aggressively treat for psychotic depression. Increase antidepressant trial as tolerated agree with lorazepam for pre catatonic like symptoms and would try Abilify for psychotic depression. If above not effective would consider ECT. Patient was unable to take information regarding ECT when seen literature given and literature also reviewed with patient's . She is reportedly healthcare proxy and this could become a consideration. For now patient showing some improvement. Monitor for hypotension Abilify encourage fluids. 11/28/21. Continue Abilify trial. I spent 25 minutes with the patient and/or on the patient floor today, greater than?50% of which was spent counseling/coordinating care. Patient educated on: therapeutic strategies Informed Consent: understands and further education needed Reason for contiued inpatient stay Substantial Risk for: inability to function, rapid decompensation and med/psych decompensation
[2021-11-28 19:00] VITALS: BP 134/79; PULSE 75; RESP 16; TEMP 36.8; O2SAT 97
[2021-11-28] MEDS: Enoxaparin Sodium 40 MG/0.4 ML SYRINGE SUBCUT (20:08)
[2021-11-28] MEDS: Sertraline HCL 100 MG TABLET PO (20:08)
[2021-11-28] MEDS: risperiDONE 0.5 MG TABLET 1.5 MG PO (20:08)
[2021-11-29 06:00] VITALS: BP 133/77; PULSE 64; RESP 16; TEMP 37
[2021-11-29] MEDS: Omeprazole 40 MG CAPSULE.DR PO (06:38)
[2021-11-29] MEDS: ARIPiprazole 5 MG TABLET PO (09:00)
[2021-11-29] MEDS: LORazepam 0.5 MG TABLET PO ×3 (09:00→20:52)
[2021-11-29] MEDS: Sucralfate 1 GM TABLET PO ×3 (09:00→20:52)
[2021-11-29] MEDS: OXcarbazepine 300 MG TABLET PO ×2 (09:00→20:52)
[2021-11-29 10:00] VITALS: BP 136/83; PULSE 105
[2021-11-29 18:32] VITALS: BP 132/76; PULSE 69; RESP 18; TEMP 36.5; O2SAT 97
--- NOTE | 2021-11-29 18:37 | HO.PSYCHPN ---
Subjective Subjective Date of Service: 11/29/21 Reason For Visit: unspecified bipolar and related d/o Subjective Notes: Section 7 Healthcare Proxy: No Guardianship: No Medical Problems Affecting Mental Status: No Interim History: Periods of improved, brighter affect, smiles, increase in energy and movement, eating while sitting up. Talkative today-several questions about where will you send me when you are finished with me . Showered for team, improved engagement. Medication Compliance: Yes Side effects from medications: No Attending Groups: Intermittent Review of Systems Acute medical concerns: No Medical Review of Systems: unchanged Review of Systems Reports behavioral changes, Reports confusion and Reports memory loss Psychiatric: Reports abnormal sleep pattern, Reports anxiety, Reports behavioral changes, Reports confusion, Reports depression, Reports difficulty concentrating, Reports hopelessness, Reports irritability, Reports anhedonia, Reports memory loss, Reports mood swings and Reports paranoia Mental Status Exam Mental Status Exam Patient Appearance: Disheveled Patient Orientation: Person, Place, Time and Situation Level of Consciousness: Alert and Lethargic Patient Behavior: Passive and Fatigued Mood Description: Apathetic, Withdrawn, Depressed and Flat Affect Description: Blunted and Flat Patient Cognition Impaired: No Ability to Follow Directions: Good Speech Pattern: Impoverished and Spontaneous Speech Memory Description: Episodic Impaired Hallucinations: None Delusions: Not Present Thought Process: Distracted, Rumination and Slowed Thinking Thought Content: positive for [place], positive for Perseveration, positive for Evasive, negative for Suicidal Ideation or negative for Homicidal Ideation Depressive Symptoms: Diff. Making Decisions, Sleeping More Than Usual, Loss of Int. in Activity, Feelings of Worthlessness, Hopelessness, Isolating-Friends/Family, Unhappiness, Increased Fatigue, Thoughts of /Suicide (denies active intent), Low Self Esteem, Loss of Energy and Difficulty Concentrating Judgement: Fair Diagnostics Vital Signs (24Hr): Vital Signs - 24 hr 11/28/21 19:00 11/29/21 06:00 11/29/21 10:00 Temperature 98.2 F 98.6 F Pulse Rate 75 64 105 H Respiratory Rate 16 16 Blood Pressure 134/79 133/77 136/83 Pulse Oximetry 97 11/29/21 18:32 Temperature 97.7 F Pulse Rate 69 Respiratory Rate 18 Blood Pressure 132/76 Pulse Oximetry 97 BMI result Body Mass Index 27.3 Labs Results: 11/19/21 13:21 11/22/21 07:54 Imaging Radiology Impressions: ITS Impressions Foot X-Ray 11/08/21 17:32 IMPRESSION: Tiny Achilles heel spur. Otherwise unremarkable appearance of the left foot. Cervical Spine X-Ray 11/22/21 14:50 IMPRESSION: No fracture or malalignment. Mild degenerative changes. Forearm X-Ray 11/22/21 14:50 IMPRESSION: No acute fractures or malalignment within the imaged left upper extremity. Hip X-Ray 11/22/21 14:50 IMPRESSION: No acute fractures or malalignment. Humerus X-Ray 11/22/21 14:50 IMPRESSION: No acute fractures or malalignment within the imaged left upper extremity. Shoulder X-Ray 11/22/21 14:50 IMPRESSION: No acute fractures or malalignment within the imaged left upper extremity. Medications Medications Current Medications Acetaminophen (Acetaminophen 325 Mg Tablet) 650 mg PO Q6H PRN PRN Reason: Headache/Pain Mild Scale (1-3) Al Hydroxide/Mg Hydroxide (Magnesium Hydrox/Alum Hydrox 30 Ml Oral.Susp) 30 ml PO Q6H PRN PRN Reason: Heartburn/Nausea Aripiprazole (Aripiprazole 5 Mg Tablet) 5 mg PO DAILY [facility] Last Admin: 11/29/21 09:00 Dose: 5 mg Documented by: Enoxaparin Sodium (Enoxaparin Sodium 40 Mg/0.4 Ml Syringe) 40 mg SUBCUT 2100 [facility] Last Admin: 11/28/21 20:08 Dose: 40 mg Documented by: Hydroxyzine HCl (Hydroxyzine Hcl 25 Mg Tablet) 25 mg PO Q6H PRN PRN Reason: Anxiety Last Admin: 11/17/21 15:11 Dose: 25 mg Documented by: Loperamide HCl (Loperamide Hcl 2 Mg Capsule) 2 mg PO Q6H PRN PRN Reason: Diarrhea Last Admin: 11/17/21 13:40 Dose: 2 mg Documented by: Lorazepam (Lorazepam 0.5 Mg Tablet) 0.5 mg PO TID [facility] Last Admin: 11/29/21 16:08 Dose: 0.5 mg Documented by: Magnesium Hydroxide (Milk Of Magnesia 30 Ml Oral.Susp) 30 ml PO DAILY PRN PRN Reason: Constipation Omeprazole (Omeprazole 40 Mg Capsule.Dr) 40 mg PO DAILY@0630 [facility] Last Admin: 11/29/21 06:38 Dose: 40 mg Documented by: Oxcarbazepine (Oxcarbazepine 300 Mg Tablet) 300 mg PO BID [facility] Last Admin: 11/29/21 09:00 Dose: 300 mg Documented by: Risperidone (Risperidone 0.5 Mg Tablet) 1.5 mg PO BEDTIME [facility] Last Admin: 11/28/21 20:08 Dose: 1.5 mg Documented by: Sertraline HCl (Sertraline Hcl 100 Mg Tablet) 100 mg PO BEDTIME [facility] Last Admin: 11/28/21 20:08 Dose: 100 mg Documented by: Sucralfate (Sucralfate 1 Gm Tablet) 1 gm PO TID [facility] Last Admin: 11/29/21 16:08 Dose: 1 gm Documented by: Trazodone HCl (Trazodone Hcl 50 Mg Tablet) 50 mg PO BEDTIME PRN PRN Reason: Insomnia Allergies Allergies Allergy/AdvReac Type Severity Reaction Status Date / Time No Known Allergies Allergy Unverified 11/07/21 21:23 Assessment & Plan Assessment & Plan (1) MDD (major depressive disorder), recurrent, severe, with psychosis: Status: Acute Code(s): F33.3 - Major depressive disorder, recurrent, severe with psychotic symptoms Assessment and Plan: Patient seen chart reviewed case reviewed with Miranda Guzman nurse practitioner and his . The patient has experienced a number of perceived losses over the past year including his old this son going to [place] to boarding school selling their sailboat which had been a major feature in his life. Patient typically can be somewhat sentimental has a difficult time with transitions to some degree but no significant psychiatric history parted approximately 2-3 months ago. The patient was somewhat obsessional anxious depressed but there was some reported response to prior antidepressant trial as an outpatient. The patient had a severe exacerbation of symptoms great fear anxiety and somatic fears after he was treated surgically and developed an infection. The patient has a difficult time expressing his feelings but his cognitive dulling periods of irrational thinking poverty of content severe withdrawal cognitive dulling often being bed ridden are most consistent with major depression with psychotic features 11/09: Will start start sertraline 50 mg QHS to target sx of OCD with poor insight, depression. Will re-start ativan 1 mg Q6H PRN, as reports this was helpful for pt and he became more responsive on ativan. 11/10: Continue sertraline 50 mg and monitor for benefit. Lovenox started per recommendation of hospitalist for DVT prevention, as pt is immobile, despondent lying down in bed. 11/11: reviewed EKG. WIll increase sertraline to 75 mg and monitor for benefit. 11/13/21: Increase Olanzapine to 7.5 mg HS. Today pt with dysphoria, treatment resistence. Work on alliance and engaging pt in his plan of care. 11/14/21: Continue current regime. 11/15/21: Increase Olanzapine to 10 mg HS. Continue to work on alliance. 11/16/21 Continue treatment plan 11/17/21 Continue treatment plan 11/18/21 continue treatment plan encourage prn atarax for anxiety 11/19/21: Regime not effective. Pt agrees to changes 1. Discontinue Olanzapine. 2. Risperdal 1.5 mg HS- for clarity of thought 3. Ativan 0.5 mg tid-for mgt of anxiety 4. Trileptal 150 mg bid- mood stabilization. Monitor response to medications. Monitor for safety in the milieu. Discharge on stabilization. Patient seen. Chart reviewed. Discussed with team. Obtain collateral contact info?as needed 11/21/21: Continue current regime-no medication changes today. Observe 11/22/21: Increase Trileptal to 300 mg bid 11/23/21: Continue current regime ECT consultation 11/24- no medication changes 11/25 continue current medications. 11/26/21: Pt considering signing a conditional voluntary Pt agrees to consult with Dr. Inman for ECT consideration. Increase Sertraline to 100 mg daily Continue to explore with Gerry possible psychosocial circumstances leading to increase in symptoms. 11/27/2021 Patient's diagnosis seems most consistent with major depression with psychotic features. Which trying get confirmation of brain MRI given patient's marked change in behavior and severe depressive symptoms periods of irrational thinking and melancholic symptoms of fatigue lethargy cognitive dulling marked decreased appetite. Would make sure no metabolic reasons for the above otherwise would aggressively treat for psychotic depression. Increase antidepressant trial as tolerated agree with lorazepam for pre catatonic like symptoms and would try Abilify for psychotic depression. If above not effective would consider ECT. Patient was unable to take information regarding ECT when seen literature given and literature also reviewed with patient's . She is reportedly healthcare proxy and this could become a consideration. For now patient showing some improvement. Monitor for hypotension Abilify encourage fluids. 11/28/21. Continue Abilify trial. 11/29/21. Some improvement seen. Continue trials. Court date rescheduled to 12/06/21. I spent 35 minutes with the patient and/or on the patient floor today, greater than?50% of which was spent counseling/coordinating care. Patient educated on: medication risk/benefits and therapeutic strategies Informed Consent: further education needed Reason for contiued inpatient stay Substantial Risk for: inability to function and rapid decompensation
[2021-11-29] MEDS: Sertraline HCL 100 MG TABLET PO (20:52)
[2021-11-29] MEDS: Enoxaparin Sodium 40 MG/0.4 ML SYRINGE SUBCUT (20:52)
[2021-11-29] MEDS: risperiDONE 0.5 MG TABLET 1.5 MG PO (20:52)
[2021-11-30] MEDS: Omeprazole 40 MG CAPSULE.DR PO (06:44)
[2021-11-30] MEDS: OXcarbazepine 300 MG TABLET PO ×2 (09:50→20:19)
[2021-11-30] MEDS: LORazepam 0.5 MG TABLET PO ×3 (09:50→20:18)
[2021-11-30] MEDS: Sucralfate 1 GM TABLET PO ×3 (09:50→20:18)
[2021-11-30] MEDS: ARIPiprazole 5 MG TABLET PO (09:50)
--- NOTE | 2021-11-30 17:18 | P.PNPSI_ITS ---
Subjective Subjective Date of Service: 11/30/21 Reason For Visit: unspecified bipolar and related d/o Subjective Notes: Section 7 Healthcare Proxy: No Guardianship: No Medical Problems Affecting Mental Status: No Interim History: Pt up and about later in the day. Met with pt in the conference room (out of his bed). Discussed his thoughts regarding symptoms and etiology. He believes that there is a medical issue as he reports currently he has no medical symptoms-no GERD sx, no arm, hip pain and this is worrysome to him as I feel I am shutting down . Discussed depression and possibly treatment is helping to manage symptoms. Discussed with pt if he felt there was a medical component we should look at more carefully-ROS negative-pt declines, stating I am not sure anyone could find it. Discussed his son and the move to [place] and their relationship. Tolerating medications without SE he reports. Medication Compliance: Yes Side effects from medications: No Attending Groups: Intermittent Review of Systems Acute medical concerns: No Medical Review of Systems: unchanged Review of Systems Reports memory loss Psychiatric: Reports anxiety, Reports depression, Reports difficulty concentrating, Reports hopelessness, Reports anhedonia and Reports memory loss Mental Status Exam Mental Status Exam Patient Appearance: Disheveled Patient Orientation: Person, Place, Time and Situation Level of Consciousness: Alert and Lethargic Patient Behavior: Passive and Fatigued Mood Description: Apathetic, Withdrawn, Depressed and Flat Affect Description: Blunted and Flat Patient Cognition Impaired: No Ability to Follow Directions: Good Speech Pattern: Impoverished and Spontaneous Speech Memory Description: Episodic Impaired Hallucinations: None Delusions: Not Present Thought Process: Distracted, Rumination and Slowed Thinking Thought Content: positive for [place], positive for Perseveration, positive for Evasive, negative for Suicidal Ideation or negative for Homicidal Ideation Depressive Symptoms: Diff. Making Decisions, Sleeping More Than Usual, Loss of Int. in Activity, Feelings of Worthlessness, Hopelessness, Isolating- Friends/Family, Unhappiness, Increased Fatigue, Thoughts of /Suicide (denies active intent), Low Self Esteem, Loss of Energy and Difficulty Concentrating Judgement: Fair Diagnostics Vital Signs (24Hr): Vital Signs - 24 hr 11/29/21 18:32 Temperature 97.7 F Pulse Rate 69 Respiratory Rate 18 Blood Pressure 132/76 Pulse Oximetry 97 BMI result Body Mass Index 27.3 Labs Results: 11/19/21 13:21 11/22/21 07:54 Imaging Radiology Impressions: ITS Impressions Foot X-Ray 11/08/21 17:32 IMPRESSION: Tiny Achilles heel spur. Otherwise unremarkable appearance of the left foot. Cervical Spine X-Ray 11/22/21 14:50 IMPRESSION: No fracture or malalignment. Mild degenerative changes. Forearm X-Ray 11/22/21 14:50 IMPRESSION: No acute fractures or malalignment within the imaged left upper extremity. Hip X-Ray 11/22/21 14:50 IMPRESSION: No acute fractures or malalignment. Humerus X-Ray 11/22/21 14:50 IMPRESSION: No acute fractures or malalignment within the imaged left upper extremity. Shoulder X-Ray 11/22/21 14:50 IMPRESSION: No acute fractures or malalignment within the imaged left upper extremity. Medications Medications Current Medications Acetaminophen (Acetaminophen 325 Mg Tablet) 650 mg PO Q6H PRN PRN Reason: Headache/Pain Mild Scale (1-3) Al Hydroxide/Mg Hydroxide (Magnesium Hydrox/Alum Hydrox 30 Ml Oral.Susp) 30 ml PO Q6H PRN PRN Reason: Heartburn/Nausea Aripiprazole (Aripiprazole 10 Mg Tablet) 10 mg PO DAILY [facility] Enoxaparin Sodium (Enoxaparin Sodium 40 Mg/0.4 Ml Syringe) 40 mg SUBCUT 2100 [facility] Last Admin: 11/29/21 20:52 Dose: 40 mg Documented by: Hydroxyzine HCl (Hydroxyzine Hcl 25 Mg Tablet) 25 mg PO Q6H PRN PRN Reason: Anxiety Last Admin: 11/17/21 15:11 Dose: 25 mg Documented by: Loperamide HCl (Loperamide Hcl 2 Mg Capsule) 2 mg PO Q6H PRN PRN Reason: Diarrhea Last Admin: 11/17/21 13:40 Dose: 2 mg Documented by: Lorazepam (Lorazepam 0.5 Mg Tablet) 0.5 mg PO TID [facility] Last Admin: 11/30/21 15:39 Dose: 0.5 mg Documented by: Magnesium Hydroxide (Milk Of Magnesia 30 Ml Oral.Susp) 30 ml PO DAILY PRN PRN Reason: Constipation Omeprazole (Omeprazole 40 Mg Capsule.Dr) 40 mg PO DAILY@0630 [facility] Last Admin: 11/30/21 06:44 Dose: 40 mg Documented by: Oxcarbazepine (Oxcarbazepine 300 Mg Tablet) 300 mg PO BID [facility] Last Admin: 11/30/21 09:50 Dose: 300 mg Documented by: Risperidone (Risperidone 0.5 Mg Tablet) 0.5 mg PO BEDTIME [facility] Sertraline HCl (Sertraline Hcl 100 Mg Tablet) 100 mg PO BEDTIME [facility] Last Admin: 11/29/21 20:52 Dose: 100 mg Documented by: Sucralfate (Sucralfate 1 Gm Tablet) 1 gm PO TID [facility] Last Admin: 11/30/21 15:39 Dose: 1 gm Documented by: Trazodone HCl (Trazodone Hcl 50 Mg Tablet) 50 mg PO BEDTIME PRN PRN Reason: Insomnia Allergies Allergies Allergy/AdvReac Type Severity Reaction Status Date / Time No Known Allergies Allergy Unverified 11/07/21 21:23 Assessment & Plan Assessment & Plan (1) MDD (major depressive disorder), recurrent, severe, with psychosis: Status: Acute Code(s): F33.3 - Major depressive disorder, recurrent, severe with psychotic symptoms Assessment and Plan: Patient seen chart reviewed case reviewed with Miranda Guzman nurse practitioner and his . The patient has experienced a number of perceived losses over the past year including his old this son going to [place] to boarding school selling their sailboat which had been a major feature in his life. Patient typically can be somewhat sentimental has a difficult time with transitions to some degree but no significant psychiatric history parted approximately 2-3 months ago. The patient was somewhat obsessional anxious depressed but there was some reported response to prior antidepressant trial as an outpatient. The patient had a severe exacerbation of symptoms great fear anxiety and somatic fears after he wa s treated surgically and developed an infection. The patient has a difficult time expressing his feelings but his cognitive dulling periods of irrational thinking poverty of content severe withdrawal cognitive dulling often being bed ridden are most consistent with major depression with psychotic features 11/09: Will start start sertraline 50 mg QHS to target sx of OCD with poor insight, depression. Will re-start ativan 1 mg Q6H PRN, as reports this was helpful for pt and he became more responsive on ativan. 11/10: Continue sertraline 50 mg and monitor for benefit. Lovenox started per recommendation of hospitalist for DVT prevention, as pt is immobile, despondent lying down in bed. 11/11: reviewed EKG. WIll increase sertraline to 75 mg and monitor for benefit. 11/13/21: Increase Olanzapine to 7.5 mg HS. Today pt with dysphoria, treatment resistence. Work on alliance and engaging pt in his plan of care. 11/14/21: Continue current regime. 11/15/21: Increase Olanzapine to 10 mg HS. Continue to work on alliance. 11/16/21 Continue treatment plan 11/17/21 Continue treatment plan 11/18/21 continue treatment plan encourage prn atarax for anxiety 11/19/21: Regime not effective. Pt agrees to changes 1. Discontinue Olanzapine. 2. Risperdal 1.5 mg HS- for clarity of thought 3. Ativan 0.5 mg tid-for mgt of anxiety 4. Trileptal 150 mg bid- mood stabilization. Monitor response to medications. Monitor for safety in the milieu. Discharge on stabilization. Patient seen. Chart reviewed. Discussed with team. Obtain collateral contact info?as needed 11/21/21: Continue current regime-no medication changes today. Observe 11/22/21: Increase Trileptal to 300 mg bid 11/23/21: Continue current regime ECT consultation 11/24- no medication changes 11/25 continue current medications. 11/26/21: Pt considering signing a conditional voluntary Pt agrees to consult with Dr. Inman for ECT consideration. Increase Sertraline to 100 mg daily Continue to explore with Gerry possible psychosocial circumstances leading to increase in symptoms. 11/27/2021 Patient's diagnosis seems most consistent with major depression with psychotic features. Which trying get confirmation of brain MRI given patient's marked change in behavior and severe depressive symptoms periods of irrational thinking and melancholic symptoms of fatigue lethargy cognitive dulling marked decreased appetite. Would make sure no metabolic reasons for the above otherwise would aggressively treat for psychotic depression. Increase antidepressant trial as tolerated agree with lorazepam for pre catatonic like symptoms and would try A bilify for psychotic depression. If above not effective would consider ECT. Patient was unable to take information regarding ECT when seen literature given and literature also reviewed with patient's . She is reportedly healthcare proxy and this could become a consideration. For now patient showing some improvement. Monitor for hypotension Abilify encourage fluids. 11/28/21. Continue Abilify trial. 11/30/21: Increase Abilify to 10 mg daily Decrease Risperdal to 0.5 mg daily Increase Sertraline to 125 mg daily I spent 40 minutes with the patient and/or on the patient floor today, greater than?50% of which was spent counseling/coordinating care. Patient educated on: diagnosis, medication risk/benefits, therapeutic strategies and medical condition Informed Consent: further education needed Reason for contiued inpatient stay Substantial Risk for: inability to function, rapid decompensation and med/psych decompensation
[2021-11-30 19:50] VITALS: BP 123/77; PULSE 75; RESP 16; TEMP 36.7; O2SAT 96
[2021-11-30] MEDS: Sertraline HCL 50 MG TABLET 125 MG PO (20:18)
[2021-11-30] MEDS: Enoxaparin Sodium 40 MG/0.4 ML SYRINGE SUBCUT (20:19)
[2021-11-30] MEDS: risperiDONE 0.5 MG TABLET PO (20:19)
[2021-12-01] MEDS: Omeprazole 40 MG CAPSULE.DR PO (05:51)
[2021-12-01 06:00] VITALS: BP 111/63; PULSE 66; RESP 16; TEMP 36.5; O2SAT 95
[2021-12-01] MEDS: OXcarbazepine 300 MG TABLET PO ×2 (08:34→20:33)
[2021-12-01] MEDS: LORazepam 0.5 MG TABLET PO ×3 (08:34→20:32)
[2021-12-01] MEDS: ARIPiprazole 10 MG TABLET PO (08:34)
[2021-12-01] MEDS: Sucralfate 1 GM TABLET PO ×3 (08:35→20:32)
--- NOTE | 2021-12-01 17:24 | P.PNPSI_ITS ---
Subjective Subjective Date of Service: 12/01/21 Reason For Visit: unspecified bipolar and related d/o Interim History: Patient said that he Is okay for now.. Patient said that he is not sure if his mood is better. Patient talked about that prior to coming to the unit, he Was been having trouble putting sentences together however and is not sure why. He denies any SI or AVH. Does not feel a need for medication changes at this time. Denies any complaints or requests. Mental Status Exam Mental Status Exam Narrative: Patient Appearance:?Unkempt Patient Orientation:?Person, Place, Time and Situation Level of Consciousness:?Alert Patient Behavior:?passive, cooperative Mood Description:? ok for now_ Affect Description:?blunted Patient Cognition Impaired:?No Ability to Follow Directions:?Good Speech Pattern:?spontaneous Memory Description:?Episodic Impaired Hallucinations:?None Delusions:?Not Present Thought Process:?goal oriented Thought Content:Denies SI or HI Depressive Symptoms:?Diff. Making Decisions, Sleeping More Than Usual, Loss of Int. in Activity, Feelings of Worthlessness, Hopelessness, Isolating- Friends/Family, Unhappiness, Increased Fatigue, Thoughts of /Suicide (denies active intent), Low Self Esteem, Loss of Energy and Difficulty Concentrating Judgment/insight: Impaired Diagnostics Vital Signs (24Hr): Vital Signs - 24 hr 11/30/21 19:50 12/01/21 06:00 Temperature 98.0 F 97.7 F Pulse Rate 75 66 Respiratory Rate 16 16 Blood Pressure 123/77 111/63 Pulse Oximetry 96 95 BMI result Body Mass Index 27.3 Labs Results: 11/19/21 13:21 11/22/21 07:54 Imaging Radiology Impressions: ITS Impressions Foot X-Ray 11/08/21 17:32 IMPRESSION: Tiny Achilles heel spur. Otherwise unremarkable appearance of the left foot. Cervical Spine X-Ray 11/22/21 14:50 IMPRESSION: No fracture or malalignment. Mild degenerative changes. Forearm X-Ray 11/22/21 14:50 IMPRESSION: No acute fractures or malalignment within the imaged left upper extremity. Hip X-Ray 11/22/21 14:50 IMPRESSION: No acute fractures or malalignment. Humerus X-Ray 11/22/21 14:50 IMPRESSION: No acute fractures or malalignment within the imaged left upper extremity. Shoulder X-Ray 11/22/21 14:50 IMPRESSION: No acute fractures or malalignment within the imaged left upper extremity. Medications Medications Current Medications Acetaminophen (Acetaminophen 325 Mg Tablet) 650 mg PO Q6H PRN PRN Reason: Headache/Pain Mild Scale (1-3) Al Hydroxide/Mg Hydroxide (Magnesium Hydrox/Alum Hydrox 30 Ml Oral.Susp) 30 ml PO Q6H PRN PRN Reason: Heartburn/Nausea Aripiprazole (Aripiprazole 10 Mg Tablet) 10 mg PO DAILY [facility] Last Admin: 12/01/21 08:34 Dose: 10 mg Documented by: Enoxaparin Sodium (Enoxaparin Sodium 40 Mg/0.4 Ml Syringe) 40 mg SUBCUT 2100 [facility] Last Admin: 11/30/21 20:19 Dose: 40 mg Documented by: Hydroxyzine HCl (Hydroxyzine Hcl 25 Mg Tablet) 25 mg PO Q6H PRN PRN Reason: Anxiety Last Admin: 11/17/21 15:11 Dose: 25 mg Documented by: Loperamide HCl (Loperamide Hcl 2 Mg Capsule) 2 mg PO Q6H PRN PRN Reason: Diarrhea Last Admin: 11/17/21 13:40 Dose: 2 mg Documented by: Lorazepam (Lorazepam 0.5 Mg Tablet) 0.5 mg PO TID [facility] Last Admin: 12/01/21 15:17 Dose: 0.5 mg Documented by: Magnesium Hydroxide (Milk Of Magnesia 30 Ml Oral.Susp) 30 ml PO DAILY PRN PRN Reason: Constipation Omeprazole (Omeprazole 40 Mg Capsule.Dr) 40 mg PO DAILY@0630 [facility] Last Admin: 12/01/21 05:51 Dose: 40 mg Documented by: Oxcarbazepine (Oxcarbazepine 300 Mg Tablet) 300 mg PO BID [facility] Last Admin: 12/01/21 08:34 Dose: 300 mg Documented by: Risperidone (Risperidone 0.5 Mg Tablet) 0.5 mg PO BEDTIME [facility] Last Admin: 11/30/21 20:19 Dose: 0.5 mg Documented by: Sertraline HCl (Sertraline Hcl 50 Mg Tablet) 125 mg PO BEDTIME [facility] Last Admin: 11/30/21 20:18 Dose: 125 mg Documented by: Sucralfate (Sucralfate 1 Gm Tablet) 1 gm PO TID [facility] Last Admin: 12/01/21 15:17 Dose: 1 gm Documented by: Trazodone HCl (Trazodone Hcl 50 Mg Tablet) 50 mg PO BEDTIME PRN PRN Reason: Insomnia Allergies Allergies Allergy/AdvReac Type Severity Reaction Status Date / Time No Known Allergies Allergy Unverified 11/07/21 21:23 Assessment & Plan Assessment & Plan (1) MDD (major depressive disorder), recurrent, severe, with psychosis: Status: Acute Code(s): F33.3 - Major depressive disorder, recurrent, severe with psychotic symptoms Assessment and Plan: Patient seen chart reviewed case reviewed with Miranda Guzman nurse practitioner and his . The patient has experienced a number of perceived losses over the past year including his old this son going to [employer] to boarding school selling their sailboat which had been a major feature in his life. Patient typically can be somewhat sentimental has a difficult time with transitions to some degree but no significant psychiatric history parted approximately 2-3 months ago. The patient was somewhat obsessional anxious depressed but there was some reported response to prior antidepressant trial as an outpatient. The patient had a severe exacerbation of symptoms great fear anxiety and somatic fears after he was treated surgically and developed an infection. The patient has a difficult time expressing his feelings but his cognitive dulling periods of irrational thinking poverty of content severe withdrawal cognitive dulling often being bed ridden are most consistent with major depression with psychotic features 11/09: Will start start sertraline 50 mg QHS to target sx of OCD with poor insight, depression. Will re-start ativan 1 mg Q6H PRN, as reports this was helpful for pt and he became more responsive on ativan. 11/10: Continue sertraline 50 mg and monitor for benefit. Lovenox started per recommendation of hospitalist for DVT prevention, as pt is immobile, despondent lying down in bed. 11/11: reviewed EKG. WIll increase sertraline to 75 mg and monitor for benefit. 11/13/21: Increase Olanzapine to 7.5 mg HS. Today pt with dysphoria, treatment resistence. Work on alliance and engaging pt in his plan of care. 11/14/21: Continue current regime. 11/15/21: Increase Olanzapine to 10 mg HS. Continue to work on alliance. 11/16/21 Continue treatment plan 11/17/21 Continue treatment plan 11/18/21 continue treatment plan encourage prn atarax for anxiety 11/19/21: Regime not effective. Pt agrees to changes 1. Discontinue Olanzapine. 2. Risperdal 1.5 mg HS- for clarity of thought 3. Ativan 0.5 mg tid-for mgt of anxiety 4. Trileptal 150 mg bid- mood stabilization. Monitor response to medications. Monitor for safety in the milieu. Discharge on stabilization. Patient seen. Chart reviewed. Discussed with team. Obtain collateral contact info?as needed 11/21/21: Continue current regime-no medication changes today. Observe 11/22/21: Increase Trileptal to 300 mg bid 11/23/21: Continue current regime ECT consultation 11/24- no medication changes 11/25 continue current medications. 11/26/21: Pt considering signing a conditional voluntary Pt agrees to consult with Dr. Inman for ECT consideration. Increase Sertraline to 100 mg daily Continue to explore with Gerry possible psychosocial circumstances leading to increase in symptoms. 11/27/2021 Patient's diagnosis seems most consistent with major depression with psychotic features. Which trying get confirmation of brain MRI given patient's marked change in behavior and severe depressive symptoms periods of irrational thinking and melancholic symptoms of fatigue lethargy cognitive dulling marked decreased appetite. Would make sure no metabolic reasons for the above otherwise would aggressively treat for psychotic depression. Increase antidepressant trial as tolerated agree with lorazepam for pre catatonic like symptoms and would try Abilify for psychotic depression. If above not effective would consider ECT. Patient was unable to take information regarding ECT when seen literature given and literature also reviewed with patient's . She is reportedly healthcare proxy and this could become a consideration. For now patient showing some improvement. Monitor for hypotension Abilify encourage fluids. 11/28/21. Continue Abilify trial. 11/30/21: Increase Abilify to 10 mg daily Decrease Risperdal to 0.5 mg daily Increase Sertraline to 125 mg daily 12/01/21 continue current regimen for now 12/02/21 no changes; continue current regimen for now I spent minutes with the patient and/or on the patient floor today, greater than?50% of which was spent counseling/coordinating care. Reason for contiued inpatient stay Substantial Risk for: rapid decompensation
[2021-12-01 20:03] VITALS: BP 119/57; PULSE 66; RESP 17; TEMP 36.4; O2SAT 97
[2021-12-01] MEDS: risperiDONE 0.5 MG TABLET PO (20:31)
[2021-12-01] MEDS: Sertraline HCL 50 MG TABLET 125 MG PO (20:31)
[2021-12-01] MEDS: Enoxaparin Sodium 40 MG/0.4 ML SYRINGE SUBCUT (21:11)
[2021-12-02 06:00] VITALS: BP 119/58; PULSE 60; RESP 14; TEMP 36.4; O2SAT 97
[2021-12-02] MEDS: Omeprazole 40 MG CAPSULE.DR PO (06:07)
[2021-12-02] MEDS: Sucralfate 1 GM TABLET PO ×3 (08:26→22:39)
[2021-12-02] MEDS: LORazepam 0.5 MG TABLET PO ×3 (08:26→22:39)
[2021-12-02] MEDS: ARIPiprazole 10 MG TABLET PO (08:26)
[2021-12-02] MEDS: OXcarbazepine 300 MG TABLET PO ×2 (08:26→22:39)
--- NOTE | 2021-12-02 17:03 | HO.PSYCHPN ---
Subjective Subjective Date of Service: 12/02/21 Reason For Visit: unspecified bipolar and related d/o Interim History: Patient a little more talkative with designer writer today. He says that he is overall all right. Continues to deny any SI/HI. Patient elaborated on recent past and said that back in September he found it was a little hard to organized his thoughts And that he was not as mathematically sharp as he used to be. Patient asked if there were organic causes other than depression to which designer writer discussed possibilities (TSH WNL). Mixing Technician asked about other history and patient did give some indication that he has had hypomanic episodes in the past although his history giving was somewhat vague and it was difficult to fully assess. Mixing Technician agreed to discuss extent of organic workup with primary team. Diagnostics Vital Signs (24Hr): Vital Signs - 24 hr 12/01/21 20:03 12/02/21 06:00 Temperature 97.5 F 97.5 F Pulse Rate 66 60 Respiratory Rate 17 14 Blood Pressure 119/57 L 119/58 L Pulse Oximetry 97 97 BMI result Body Mass Index 27.3 Labs Results: 11/19/21 13:21 11/22/21 07:54 Imaging Radiology Impressions: ITS Impressions Foot X-Ray 11/08/21 17:32 IMPRESSION: Tiny Achilles heel spur. Otherwise unremarkable appearance of the left foot. Cervical Spine X-Ray 11/22/21 14:50 IMPRESSION: No fracture or malalignment. Mild degenerative changes. Forearm X-Ray 11/22/21 14:50 IMPRESSION: No acute fractures or malalignment within the imaged left upper extremity. Hip X-Ray 11/22/21 14:50 IMPRESSION: No acute fractures or malalignment. Humerus X-Ray 11/22/21 14:50 IMPRESSION: No acute fractures or malalignment within the imaged left upper extremity. Shoulder X-Ray 11/22/21 14:50 IMPRESSION: No acute fractures or malalignment within the imaged left upper extremity. Medications Medications Current Medications Acetaminophen (Acetaminophen 325 Mg Tablet) 650 mg PO Q6H PRN PRN Reason: Headache/Pain Mild Scale (1-3) Al Hydroxide/Mg Hydroxide (Magnesium Hydrox/Alum Hydrox 30 Ml Oral.Susp) 30 ml PO Q6H PRN PRN Reason: Heartburn/Nausea Aripiprazole (Aripiprazole 10 Mg Tablet) 10 mg PO DAILY [facility] Last Admin: 12/02/21 08:26 Dose: 10 mg Documented by: Enoxaparin Sodium (Enoxaparin Sodium 40 Mg/0.4 Ml Syringe) 40 mg SUBCUT 2100 [facility] Last Admin: 12/01/21 21:11 Dose: 40 mg Documented by: Hydroxyzine HCl (Hydroxyzine Hcl 25 Mg Tablet) 25 mg PO Q6H PRN PRN Reason: Anxiety Last Admin: 11/17/21 15:11 Dose: 25 mg Documented by: Loperamide HCl (Loperamide Hcl 2 Mg Capsule) 2 mg PO Q6H PRN PRN Reason: Diarrhea Last Admin: 11/17/21 13:40 Dose: 2 mg Documented by: Lorazepam (Lorazepam 0.5 Mg Tablet) 0.5 mg PO TID [facility] Last Admin: 12/02/21 15:16 Dose: 0.5 mg Documented by: Magnesium Hydroxide (Milk Of Magnesia 30 Ml Oral.Susp) 30 ml PO DAILY PRN PRN Reason: Constipation Omeprazole (Omeprazole 40 Mg Capsule.Dr) 40 mg PO DAILY@0630 [facility] Last Admin: 12/02/21 06:07 Dose: 40 mg Documented by: Oxcarbazepine (Oxcarbazepine 300 Mg Tablet) 300 mg PO BID [facility] Last Admin: 12/02/21 08:26 Dose: 300 mg Documented by: Risperidone (Risperidone 0.5 Mg Tablet) 0.5 mg PO BEDTIME [facility] Last Admin: 12/01/21 20:31 Dose: 0.5 mg Documented by: Sertraline HCl (Sertraline Hcl 50 Mg Tablet) 125 mg PO BEDTIME [facility] Last Admin: 12/01/21 20:31 Dose: 125 mg Documented by: Sucralfate (Sucralfate 1 Gm Tablet) 1 gm PO TID [facility] Last Admin: 12/02/21 15:16 Dose: 1 gm Documented by: Trazodone HCl (Trazodone Hcl 50 Mg Tablet) 50 mg PO BEDTIME PRN PRN Reason: Insomnia Allergies Allergies Allergy/AdvReac Type Severity Reaction Status Date / Time No Known Allergies Allergy Unverified 11/07/21 21:23 Assessment & Plan Assessment & Plan (1) MDD (major depressive disorder), recurrent, severe, with psychosis: Status: Acute Code(s): F33.3 - Major depressive disorder, recurrent, severe with psychotic symptoms Assessment and Plan: Patient seen chart reviewed case reviewed with Miranda Guzman nurse practitioner and his . The patient has experienced a number of perceived losses over the past year including his old this son going to [place] to boarding school selling their sailboat which had been a major feature in his life. Patient typically can be somewhat sentimental has a difficult time with transitions to some degree but no significant psychiatric history parted approximately 2-3 months ago. The patient was somewhat obsessional anxious depressed but there was some reported response to prior antidepressant trial as an outpatient. The patient had a severe exacerbation of symptoms great fear anxiety and somatic fears after he was treated surgically and developed an infection. The patient has a difficult time expressing his feelings but his cognitive dulling periods of irrational thinking poverty of content severe withdrawal cognitive dulling often being bed ridden are most consistent with major depression with psychotic features 11/09: Will start start sertraline 50 mg QHS to target sx of OCD with poor insight, depression. Will re-start ativan 1 mg Q6H PRN, as reports this was helpful for pt and he became more responsive on ativan. 11/10: Continue sertraline 50 mg and monitor for benefit. Lovenox started per recommendation of hospitalist for DVT prevention, as pt is immobile, despondent lying down in bed. 11/11: reviewed EKG. WIll increase sertraline to 75 mg and monitor for benefit. 11/13/21: Increase Olanzapine to 7.5 mg HS. Today pt with dysphoria, treatment resistence. Work on alliance and engaging pt in his plan of care. 11/14/21: Continue current regime. 11/15/21: Increase Olanzapine to 10 mg HS. Continue to work on alliance. 11/16/21 Continue treatment plan 11/17/21 Continue treatment plan 11/18/21 continue treatment plan encourage prn atarax for anxiety 11/19/21: Regime not effective. Pt agrees to changes 1. Discontinue Olanzapine. 2. Risperdal 1.5 mg HS- for clarity of thought 3. Ativan 0.5 mg tid-for mgt of anxiety 4. Trileptal 150 mg bid- mood stabilization. Monitor response to medications. Monitor for safety in the milieu. Discharge on stabilization. Patient seen. Chart reviewed. Discussed with team. Obtain collateral contact info?as needed 11/21/21: Continue current regime-no medication changes today. Observe 11/22/21: Increase Trileptal to 300 mg bid 11/23/21: Continue current regime ECT consultation 11/24- no medication changes 11/25 continue current medications. 11/26/21: Pt considering signing a conditional voluntary Pt agrees to consult with Dr. Inman for ECT consideration. Increase Sertraline to 100 mg daily Continue to explore with Gerry possible psychosocial circumstances leading to increase in symptoms. 11/27/2021 Patient's diagnosis seems most consistent with major depression with psychotic features. Which trying get confirmation of brain MRI given patient's marked change in behavior and severe depressive symptoms periods of irrational thinking and melancholic symptoms of fatigue lethargy cognitive dulling marked decreased appetite. Would make sure no metabolic reasons for the above otherwise would aggressively treat for psychotic depression. Increase antidepressant trial as tolerated agree with lorazepam for pre catatonic like symptoms and would try Abilify for psychotic depression. If above not effective would consider ECT. Patient was unable to take information regarding ECT when seen literature given and literature also reviewed with patient's . She is reportedly healthcare proxy and this could become a consideration. For now patient showing some improvement. Monitor for hypotension Abilify encourage fluids. 11/28/21. Continue Abilify trial. 11/30/21: Increase Abilify to 10 mg daily Decrease Risperdal to 0.5 mg daily Increase Sertraline to 125 mg daily 12/01/21 continue current regimen for now 12/02/21 Continue current regimen for now Primary team to assess organic workup. TSH Wnl Patient the was expressed some history for what sounds like hypomanic episodes and may be experiencing bipolar depression. I spent minutes with the patient and/or on the patient floor today, greater than?50% of which was spent counseling/coordinating care. Reason for contiued inpatient stay Substantial Risk for: inability to function
[2021-12-02 20:30] VITALS: BP 101/55; PULSE 73; TEMP 36.5; O2SAT 97
[2021-12-02] MEDS: Enoxaparin Sodium 40 MG/0.4 ML SYRINGE SUBCUT (22:38)
[2021-12-02] MEDS: risperiDONE 0.5 MG TABLET PO (22:39)
[2021-12-02] MEDS: Sertraline HCL 50 MG TABLET 125 MG PO (22:39)
[2021-12-03 06:00] VITALS: BP 120/73; PULSE 66; RESP 16; TEMP 36.8; O2SAT 96
[2021-12-03] MEDS: Omeprazole 40 MG CAPSULE.DR PO (06:17)
[2021-12-03] MEDS: Sucralfate 1 GM TABLET PO ×3 (08:50→21:49)
[2021-12-03] MEDS: OXcarbazepine 300 MG TABLET PO ×2 (08:50→22:01)
[2021-12-03] MEDS: ARIPiprazole 10 MG TABLET PO (08:50)
[2021-12-03] MEDS: LORazepam 0.5 MG TABLET PO ×3 (08:50→21:49)
[2021-12-03 13:50] VITALS: BP 110/64; PULSE 97; O2SAT 97
[2021-12-03 13:53] VITALS: BP 98/54; PULSE 97
--- NOTE | 2021-12-03 14:43 | PC.NURSE ---
Pt participated in [facility] screen on this date, scored 27/30, indicating cognition is within normal limits. WORK ORDER SORTING CLERK and nurse aware.
--- NOTE | 2021-12-03 16:37 | P.PNPSI_ITS ---
Subjective Subjective Date of Service: 12/03/21 Reason For Visit: unspecified bipolar and related d/o Subjective Notes: Section 7 Healthcare Proxy: No Guardianship: No Medical Problems Affecting Mental Status: No Interim History: Couples meeting scheduled for 12/04. MOCA completed by Dominga Israel . Reports he does not believe this to be depression, but a physical illness we cannot see. Court scheduled for 12/06/21. Medication Compliance: Yes Side effects from medications: No Attending Groups: No Review of Systems Acute medical concerns: No Medical Review of Systems: unchanged Review of Systems Reports behavioral changes and Reports memory loss Psychiatric: Reports abnormal sleep pattern, Reports anxiety, Reports behavioral changes, Reports change in appetite, Reports depression, Reports difficulty concentrating, Reports hopelessness, Reports irritability, Reports anhedonia and Reports memory loss Mental Status Exam Mental Status Exam Patient Appearance: Fatigued, Disheveled and Unkempt Patient Orientation: Person, Place, Time and Situation Level of Consciousness: Alert Patient Behavior: Talkative, Fatigued, Distractible and Good Eye Contact Mood Description: Withdrawn, Depressed and Angry Affect Description: Flat Patient Cognition Impaired: No Ability to Follow Directions: Good Speech Pattern: Spontaneous Speech Memory Description: Episodic Impaired Hallucinations: None Delusions: Not Present Perceptual Disturbances: Depersonalization and Derealization Thought Process: Distracted and Rumination Thought Content: positive for Circumstantial, positive for Perseveration, positive for Preoccupation and positive for Hypochondriasis Depressive Symptoms: Increased Anxiety, Diff. Making Decisions, Sleeping More Than Usual, Increased Fatigue, Loss of Energy and Difficulty Concentrating Judgement: Fair Diagnostics Vital Signs (24Hr): Vital Signs - 24 hr 12/02/21 20:30 12/03/21 06:00 12/03/21 13:50 Temperature 97.7 F 98.2 F Pulse Rate 73 66 97 Respiratory Rate 16 Blood Pressure 101/55 L 120/73 110/64 Pulse Oximetry 97 96 97 12/03/21 13:53 Temperature Pulse Rate 97 Respiratory Rate Blood Pressure 98/54 L Pulse Oximetry BMI result Body Mass Index 27.3 Labs Results: 11/19/21 13:21 11/22/21 07:54 Imaging Radiology Impressions: ITS Impressions Foot X-Ray 11/08/21 17:32 IMPRESSION: Tiny Achilles heel spur. Otherwise unremarkable appearance of the left foot. Cervical Spine X-Ray 11/22/21 14:50 IMPRESSION: No fracture or malalignment. Mild degenerative changes. Forearm X-Ray 11/22/21 14:50 IMPRESSION: No acute fractures or malalignment within the imaged left upper extremity. Hip X-Ray 11/22/21 14:50 IMPRESSION: No acute fractures or malalignment. Humerus X-Ray 11/22/21 14:50 IMPRESSION: No acute fractures or malalignment within the imaged left upper extremity. Shoulder X-Ray 11/22/21 14:50 IMPRESSION: No acute fractures or malalignment within the imaged left upper extremity. Medications Medications Current Medications Acetaminophen (Acetaminophen 325 Mg Tablet) 650 mg PO Q6H PRN PRN Reason: Headache/Pain Mild Scale (1-3) Al Hydroxide/Mg Hydroxide (Magnesium Hydrox/Alum Hydrox 30 Ml Oral.Susp) 30 ml PO Q6H PRN PRN Reason: Heartburn/Nausea Aripiprazole (Aripiprazole 10 Mg Tablet) 10 mg PO DAILY [facility] Last Admin: 12/03/21 08:50 Dose: 10 mg Documented by: Enoxaparin Sodium (Enoxaparin Sodium 40 Mg/0.4 Ml Syringe) 40 mg SUBCUT 2100 [facility] Last Admin: 12/02/21 22:38 Dose: 40 mg Documented by: Hydroxyzine HCl (Hydroxyzine Hcl 25 Mg Tablet) 25 mg PO Q6H PRN PRN Reason: Anxiety Last Admin: 11/17/21 15:11 Dose: 25 mg Documented by: Loperamide HCl (Loperamide Hcl 2 Mg Capsule) 2 mg PO Q6H PRN PRN Reason: Diarrhea Last Admin: 11/17/21 13:40 Dose: 2 mg Documented by: Lorazepam (Lorazepam 0.5 Mg Tablet) 0.5 mg PO TID [facility] Last Admin: 12/03/21 15:24 Dose: 0.5 mg Documented by: Magnesium Hydroxide (Milk Of Magnesia 30 Ml Oral.Susp) 30 ml PO DAILY PRN PRN Reason: Constipation Omeprazole (Omeprazole 40 Mg Capsule.Dr) 40 mg PO DAILY@0630 [facility] Last Admin: 12/03/21 06:17 Dose: 40 mg Documented by: Oxcarbazepine (Oxcarbazepine 300 Mg Tablet) 300 mg PO BID [facility] Last Admin: 12/03/21 08:50 Dose: 300 mg Documented by: Risperidone (Risperidone 0.5 Mg Tablet) 0.5 mg PO BEDTIME [facility] Last Admin: 12/02/21 22:39 Dose: 0.5 mg Documented by: Sertraline HCl (Sertraline Hcl 50 Mg Tablet) 125 mg PO BEDTIME [facility] Last Admin: 12/02/21 22:39 Dose: 125 mg Documented by: Sucralfate (Sucralfate 1 Gm Tablet) 1 gm PO TID [facility] Last Admin: 12/03/21 15:24 Dose: 1 gm Documented by: Trazodone HCl (Trazodone Hcl 50 Mg Tablet) 50 mg PO BEDTIME PRN PRN Reason: Insomnia Allergies Allergies Allergy/AdvReac Type Severity Reaction Status Date / Time No Known Allergies Allergy Unverified 11/07/21 21:23 Assessment & Plan Assessment & Plan (1) MDD (major depressive disorder), recurrent, severe, with psychosis: Status: Acute Code(s): F33.3 - Major depressive disorder, recurrent, severe with psychotic symptoms Assessment and Plan: Patient seen chart reviewed case reviewed with Miranda Guzman nurse practitioner and his . The patient has experienced a number of perceived losses over the past year including his old this son going to [place] to [email or web address] selling their sailboat which had been a major feature in his life. Patient typically can be somewhat sentimental has a difficult time with transitions to some degree but no significant psychiatric history parted approximately 2-3 months ago. The patient was somewhat obsessional anxious depressed but there was some reported response to prior antidepressant trial as an outpatient. The patient had a severe exacerbation of symptoms great fear anxiety and somatic fears after he was treated surgically and developed an infection. The patient has a difficult time expressing his feelings but his cognitive dulling periods of irrational thinking poverty of content severe withdrawal cognitive dulling often being bed ridden are most consistent with major depression with psychotic features 11/09: Will start start sertraline 50 mg QHS to target sx of OCD with poor insight, depression. Will re-start ativan 1 mg Q6H PRN, as reports this was helpful for pt and he became more responsive on ativan. 11/10: Continue sertraline 50 mg and monitor for benefit. Lovenox started per recommendation of hospitalist for DVT prevention, as pt is immobile, despondent lying down in bed. 11/11: reviewed EKG. WIll increase sertraline to 75 mg and monitor for benefit. 11/13/21: Increase Olanzapine to 7.5 mg HS. Today pt with dysphoria, treatment resistence. Work on alliance and engaging pt in his plan of care. 11/14/21: Continue current regime. 11/15/21: Increase Olanzapine to 10 mg HS. Continue to work on alliance. 11/16/21 Continue treatment plan 11/17/21 Continue treatment plan 11/18/21 continue treatment plan encourage prn atarax for anxiety 11/19/21: Regime not effective. Pt agrees to changes 1. Discontinue Olanzapine. 2. Risperdal 1.5 mg HS- for clarity of thought 3. Ativan 0.5 mg tid-for mgt of anxiety 4. Trileptal 150 mg bid- mood stabilization. Monitor response to medications. Monitor for safety in the milieu. Discharge on stabilization. Patient seen. Chart reviewed. Discussed with team. Obtain collateral contact info?as needed 11/21/21: Continue current regime-no medication changes today. Observe 11/22/21: Increase Trileptal to 300 mg bid 11/23/21: Continue current regime ECT consultation 11/24- no medication changes 11/25 continue current medications. 11/26/21: Pt considering signing a conditional voluntary Pt agrees to consult with Dr. Inman for ECT consideration. Increase Sertraline to 100 mg daily Continue to explore with Gerry possible psychosocial circumstances leading to increase in symptoms. 11/27/2021 Patient's diagnosis seems most consistent with major depression with psychotic features. Which trying get confirmation of brain MRI given patient's marked change in behavior and severe depressive symptoms periods of irrational thinking and melancholic symptoms of fatigue lethargy cognitive dulling marked decreased appetite. Would make sure no metabolic reasons for the above otherwise would aggressively treat for psychotic depression. Increase antidepressant trial as tolerated agree with lorazepam for pre catatonic like symptoms and would try Abilify for psychotic depression. If above not effective would consider ECT. Patient was unable to take information regarding ECT when seen literature given and literature also reviewed with patient's . She is reportedly healthcare proxy and this could become a consideration. For now patient showing some improvement. Monitor for hypotension Abilify encourage fluids. 11/28/21. Continue Abilify trial. 11/30/21: Increase Abilify to 10 mg daily Decrease Risperdal to 0.5 mg daily Increase Sertraline to 125 mg daily 12/01/21 continue current regimen for now 12/02/21 Continue current regimen for now Primary team to assess organic workup. TSH Wnl Patient the was expressed some history for what sounds like hypomanic episodes and may be experiencing bipolar depression. 12/03/21 Pt agrees to couples meeting on 12/04. Continue current regime. Discuss further changes 12/04 with the couple. I spent 25 minutes with the patient and/or on the patient floor today, greater than?50% of which was spent counseling/coordinating care. Informed Consent: further education needed Reason for contiued inpatient stay Substantial Risk for: inability to function, rapid decompensation and med/psych decompensation
[2021-12-03 18:00] VITALS: BP 121/70; PULSE 63; TEMP 36.4; O2SAT 98
[2021-12-03] MEDS: risperiDONE 0.5 MG TABLET PO (21:49)
[2021-12-03] MEDS: Sertraline HCL 50 MG TABLET 125 MG PO (21:49)
[2021-12-03] MEDS: Enoxaparin Sodium 40 MG/0.4 ML SYRINGE SUBCUT (21:50)
[2021-12-04 06:00] VITALS: BP 124/73; PULSE 64; RESP 14; TEMP 36.4; O2SAT 96
[2021-12-04] MEDS: Omeprazole 40 MG CAPSULE.DR PO (06:31)
[2021-12-04] MEDS: ARIPiprazole 10 MG TABLET PO (08:46)
[2021-12-04] MEDS: Sucralfate 1 GM TABLET PO ×3 (08:46→20:45)
[2021-12-04] MEDS: LORazepam 0.5 MG TABLET PO ×2 (08:46→15:03)
[2021-12-04] MEDS: OXcarbazepine 300 MG TABLET PO ×2 (08:46→20:46)
[2021-12-04 16:55] VITALS: BP 139/73; PULSE 64; TEMP 36.9
--- NOTE | 2021-12-04 19:04 | P.PNPSI_ITS ---
Subjective Subjective Date of Service: 12/04/21 Reason For Visit: unspecified bipolar and related d/o Subjective Notes: Section 7 Healthcare Proxy: No Guardianship: No Medical Problems Affecting Mental Status: No Interim History: Family meeting today with pt, , Zander Lopez JULIO and tw. via phone d/t COVID restrictions. reviewed concerns and her thoughts about this being mid life crisis issues. Reports hx of poor self care and family being unable to care for him as a child, wanting him back in the home as and father. reviewed several family members and friends who love and care for pt and are wanting him back in their lives. Pt responded with passivity, ?anger, sarcasm-it appeared he was unable to hear any feedback from his or team regarding his value or their caring about him. Reviewed MOCA result of . Review of meds, plan to titrate, plan to trial a stimulant, thoughts about diagnosis- pt remained passive, stating he felt this was something medical and that it was getting worse as his medical symptoms have subsided-discussed this possibly being efficacy of medication regime. Sx initiation appear to relate to son going to [place] in Jul to boarding school. Medication Compliance: Yes Side effects from medications: No Attending Groups: Intermittent Review of Systems Acute medical concerns: No Medical Review of Systems: unchanged Review of Systems Reports behavioral changes and Reports memory loss Psychiatric: Reports abnormal sleep pattern, Reports anxiety, Reports behavioral changes, Reports change in appetite, Reports depression, Reports difficulty concentrating, Reports hopelessness, Reports irritability, Reports anhedonia and Reports memory loss Mental Status Exam Mental Status Exam Patient Appearance: Fatigued, Disheveled and Unkempt Patient Orientation: Person, Place, Time and Situation Level of Consciousness: Alert Patient Behavior: Talkative, Fatigued, Distractible and Good Eye Contact Mood Description: Withdrawn, Depressed and Angry Affect Description: Flat Patient Cognition Impaired: No Ability to Follow Directions: Good Speech Pattern: Spontaneous Speech Memory Description: Episodic Impaired Hallucinations: None Delusions: Not Present Perceptual Disturbances: Depersonalization and Derealization Thought Process: Distracted and Rumination Thought Content: positive for Circumstantial, positive for Perseveration, positive for Preoccupation and positive for Hypochondriasis Depressive Symptoms: Increased Anxiety, Diff. Making Decisions, Sleeping More Than Usual, Increased Fatigue, Loss of Energy and Difficulty Concentrating Judgement: Fair Diagnostics Vital Signs (24Hr): Vital Signs - 24 hr 12/04/21 06:00 12/04/21 16:55 Temperature 97.6 F 98.4 F Pulse Rate 64 64 Respiratory Rate 14 Blood Pressure 124/73 139/73 Pulse Oximetry 96 BMI result Body Mass Index 27.3 Labs Results: 11/19/21 13:21 11/22/21 07:54 Imaging Radiology Impressions: ITS Impressions Foot X-Ray 11/08/21 17:32 IMPRESSION: Tiny Achilles heel spur. Otherwise unremarkable appearance of the left foot. Cervical Spine X-Ray 11/22/21 14:50 IMPRESSION: No fracture or malalignment. Mild degenerative changes. Forearm X-Ray 11/22/21 14:50 IMPRESSION: No acute fractures or malalignment within the imaged left upper extremity. Hip X-Ray 11/22/21 14:50 IMPRESSION: No acute fractures or malalignment. Humerus X-Ray 11/22/21 14:50 IMPRESSION: No acute fractures or malalignment within the imaged left upper extremity. Shoulder X-Ray 11/22/21 14:50 IMPRESSION: No acute fractures or malalignment within the imaged left upper extremity. Medications Medications Current Medications Acetaminophen (Acetaminophen 325 Mg Tablet) 650 mg PO Q6H PRN PRN Reason: Headache/Pain Mild Scale (1-3) Al Hydroxide/Mg Hydroxide (Magnesium Hydrox/Alum Hydrox 30 Ml Oral.Susp) 30 ml PO Q6H PRN PRN Reason: Heartburn/Nausea Aripiprazole (Aripiprazole 10 Mg Tablet) 10 mg PO DAILY [facility] Last Admin: 12/04/21 08:46 Dose: 10 mg Documented by: Enoxaparin Sodium (Enoxaparin Sodium 40 Mg/0.4 Ml Syringe) 40 mg SUBCUT 2100 [facility] Last Admin: 12/03/21 21:50 Dose: 40 mg Documented by: Hydroxyzine HCl (Hydroxyzine Hcl 25 Mg Tablet) 25 mg PO Q6H PRN PRN Reason: Anxiety Last Admin: 11/17/21 15:11 Dose: 25 mg Documented by: Loperamide HCl (Loperamide Hcl 2 Mg Capsule) 2 mg PO Q6H PRN PRN Reason: Diarrhea Last Admin: 11/17/21 13:40 Dose: 2 mg Documented by: Lorazepam (Lorazepam 0.5 Mg Tablet) 0.5 mg PO TID [facility] Last Admin: 12/04/21 15:03 Dose: 0.5 mg Documented by: Magnesium Hydroxide (Milk Of Magnesia 30 Ml Oral.Susp) 30 ml PO DAILY PRN PRN Reason: Constipation Omeprazole (Omeprazole 40 Mg Capsule.Dr) 40 mg PO DAILY@0630 [facility] Last Admin: 12/04/21 06:31 Dose: 40 mg Documented by: Oxcarbazepine (Oxcarbazepine 300 Mg Tablet) 300 mg PO BID [facility] Last Admin: 12/04/21 08:46 Dose: 300 mg Documented by: Risperidone (Risperidone 0.5 Mg Tablet) 0.5 mg PO BEDTIME [facility] Last Admin: 12/03/21 21:49 Dose: 0.5 mg Documented by: Sertraline HCl (Sertraline Hcl 50 Mg Tablet) 125 mg PO BEDTIME [facility] Last Admin: 12/03/21 21:49 Dose: 125 mg Documented by: Sucralfate (Sucralfate 1 Gm Tablet) 1 gm PO TID [facility] Last Admin: 12/04/21 15:03 Dose: 1 gm Documented by: Trazodone HCl (Trazodone Hcl 50 Mg Tablet) 50 mg PO BEDTIME PRN PRN Reason: Insomnia Allergies Allergies Allergy/AdvReac Type Severity Reaction Status Date / Time No Known Allergies Allergy Unverified 11/07/21 21:23 Assessment & Plan Assessment & Plan (1) MDD (major depressive disorder), recurrent, severe, with psychosis: Status: Acute Code(s): F33.3 - Major depressive disorder, recurrent, severe with psychotic symptoms Assessment and Plan: Patient seen chart reviewed case reviewed with Miranda Guzman nurse practitioner and his . The patient has experienced a number of perceived losses over the past year including his old this son going to [employer] to [employer] school selling their sailboat which had been a major feature in his life. Patient typically can be somewhat sentimental has a difficult time with transitions to some degree but no significant psychiatric history parted approximately 2-3 months ago. The patient was somewhat obsessional anxious depressed but there was some reported response to prior antidepressant trial as an outpatient. The patient had a severe exacerbation of symptoms great fear anxiety and somatic fears after he was treated surgically and developed an infection. The patient has a difficult time expressing his feelings but his cognitive dulling periods of irrational thinking poverty of content severe withdrawal cognitive dulling often being bed ridden are most consistent with major depression with psychotic features 11/09: Will start start sertraline 50 mg QHS to target sx of OCD with poor insight, depression. Will re-start ativan 1 mg Q6H PRN, as reports this was helpful for pt and he became more responsive on ativan. 11/10: Continue sertraline 50 mg and monitor for benefit. Lovenox started per recommendation of hospitalist for DVT prevention, as pt is immobile, despondent lying down in bed. 11/11: reviewed EKG. WIll increase sertraline to 75 mg and monitor for benefit. 11/13/21: Increase Olanzapine to 7.5 mg HS. Today pt with dysphoria, treatment resistence. Work on alliance and engaging pt in his plan of care. 11/14/21: Continue current regime. 11/15/21: Increase Olanzapine to 10 mg HS. Continue to work on alliance. 11/16/21 Continue treatment plan 11/17/21 Continue treatment plan 11/18/21 continue treatment plan encourage prn atarax for anxiety 11/19/21: Regime not effective. Pt agrees to changes 1. Discontinue Olanzapine. 2. Risperdal 1.5 mg HS- for clarity of thought 3. Ativan 0.5 mg tid-for mgt of anxiety 4. Trileptal 150 mg bid- mood stabilization. Monitor response to medications. Monitor for safety in the milieu. Discharge on stabilization. Patient seen. Chart reviewed. Discussed with team. Obtain collateral contact info?as needed 11/21/21: Continue current regime-no medication changes today. Observe 11/22/21: Increase Trileptal to 300 mg bid 11/23/21: Continue current regime ECT consultation 11/24- no medication changes 11/25 continue current medications. 11/26/21: Pt considering signing a conditional voluntary Pt agrees to consult with Dr. Inman for ECT consideration. Increase Sertraline to 100 mg daily Continue to explore with Gerry possible psychosocial circumstances leading to increase in symptoms. 11/27/2021 Patient's diagnosis seems most consistent with major depression with psychotic features. Which trying get confirmation of brain MRI given patient's marked change in behavior and severe depressive symptoms periods of irrational thinking and melancholic symptoms of fatigue lethargy cognitive dulling marked decreased appetite. Would make sure no metabolic reasons for the above otherwise would aggressively treat for psychotic depression. Increase antidepressant trial as tolerated agree with lorazepam for pre catatonic like symptoms and would try Abilify for psychotic depression. If above not effective would consider ECT. Patient was unable to take information regarding ECT when seen literature given and literature also reviewed with patient's . She is reportedly healthcare proxy and this could become a consideration. For now patient showing some improvement. Monitor for hypotension Abilify encourage fluids. 11/28/21. Continue Abilify trial. 11/30/21: Increase Abilify to 10 mg daily Decrease Risperdal to 0.5 mg daily Increase Sertraline to 125 mg daily 12/01/21 continue current regimen for now 12/02/21 Continue current regimen for now Primary team to assess organic workup. TSH Wnl Patient the was expressed some history for what sounds like hypomanic episodes and may be experiencing bipolar depression. 12/03/21 Pt agrees to couples meeting on 12/04. Continue current regime. Discuss further changes 12/04 with the couple. 12/04/21 Increase Abilify to 20 mg. Provigil 100 mg a.m. Discontinue Risperdal Decrease Lorazepam to 0.25 mg tid Continue Sertraline, Trileptal, Trazodone I spent 60 minutes with the patient and/or on the patient floor today, greater than?50% of which was spent counseling/coordinating care. Patient educated on: diagnosis, medication risk/benefits and therapeutic strategies Guardian/Caregiver educated on: diagnosis, medication risk/benefits, ECT, therapeutic strategies and medical condition Informed Consent: understands Reason for contiued inpatient stay Substantial Risk for: inability to function and rapid decompensation
[2021-12-04] MEDS: LORazepam 0.5 MG TABLET 0.25 MG PO (20:43)
[2021-12-04] MEDS: Sertraline HCL 50 MG TABLET 125 MG PO (20:45)
[2021-12-04] MEDS: Enoxaparin Sodium 40 MG/0.4 ML SYRINGE SUBCUT (20:47)
[2021-12-05 06:00] VITALS: BP 134/78; PULSE 65; TEMP 36.3; O2SAT 96
[2021-12-05] MEDS: LORazepam 0.5 MG TABLET 0.25 MG PO ×3 (08:57→21:08)
[2021-12-05] MEDS: OXcarbazepine 300 MG TABLET PO ×2 (08:58→21:08)
[2021-12-05] MEDS: Sucralfate 1 GM TABLET PO ×3 (08:58→21:08)
[2021-12-05] MEDS: Omeprazole 40 MG CAPSULE.DR PO (08:58)
[2021-12-05] MEDS: modafiniL 100 MG TABLET PO (08:58)
[2021-12-05] MEDS: ARIPiprazole 20 MG TABLET PO (09:00)
--- NOTE | 2021-12-05 18:59 | P.PNPSI_ITS ---
Subjective Subjective Date of Service: 12/05/21 Reason For Visit: unspecified bipolar and related d/o Subjective Notes: Section 7 Healthcare Proxy: No Guardianship: No Medical Problems Affecting Mental Status: No Interim History: Court postponed until 12/20/21. Tolerated med changes with no real efficacy today. Discussed son going to [place]-he did not agree with it- has family there-maternal grandfather is from [place] and he wanted to go . Medication Compliance: Yes Side effects from medications: No Attending Groups: No Review of Systems Acute medical concerns: No Medical Review of Systems: unchanged Review of Systems Reports behavioral changes and Reports memory loss Psychiatric: Reports abnormal sleep pattern, Reports anxiety, Reports behavioral changes, Reports change in appetite, Reports depression, Reports difficulty concentrating, Reports hopelessness, Reports irritability, Reports anhedonia and Reports memory loss Mental Status Exam Mental Status Exam Patient Appearance: Fatigued, Disheveled and Unkempt Patient Orientation: Person, Place, Time and Situation Level of Consciousness: Alert Patient Behavior: Talkative, Fatigued, Distractible and Good Eye Contact Mood Description: Withdrawn, Depressed and Angry Affect Description: Flat Patient Cognition Impaired: No Ability to Follow Directions: Good Speech Pattern: Spontaneous Speech Memory Description: Episodic Impaired Hallucinations: None Delusions: Not Present Perceptual Disturbances: Depersonalization and Derealization Thought Process: Distracted and Rumination Thought Content: positive for Circumstantial, positive for Perseveration, positive for Preoccupation and positive for Hypochondriasis Depressive Symptoms: Increased Anxiety, Diff. Making Decisions, Sleeping More Than Usual, Increased Fatigue, Loss of Energy and Difficulty Concentrating Judgement: Fair Diagnostics Vital Signs (24Hr): Vital Signs - 24 hr 12/05/21 06:00 Temperature 97.3 F Pulse Rate 65 Blood Pressure 134/78 Pulse Oximetry 96 BMI result Body Mass Index 27.3 Labs Results: 11/19/21 13:21 11/22/21 07:54 Imaging Radiology Impressions: ITS Impressions Foot X-Ray 11/08/21 17:32 IMPRESSION: Tiny Achilles heel spur. Otherwise unremarkable appearance of the left foot. Cervical Spine X-Ray 11/22/21 14:50 IMPRESSION: No fracture or malalignment. Mild degenerative changes. Forearm X-Ray 11/22/21 14:50 IMPRESSION: No acute fractures or malalignment within the imaged left upper extremity. Hip X-Ray 11/22/21 14:50 IMPRESSION: No acute fractures or malalignment. Humerus X-Ray 11/22/21 14:50 IMPRESSION: No acute fractures or malalignment within the imaged left upper extremity. Shoulder X-Ray 11/22/21 14:50 IMPRESSION: No acute fractures or malalignment within the imaged left upper extremity. Medications Medications Current Medications Acetaminophen (Acetaminophen 325 Mg Tablet) 650 mg PO Q6H PRN PRN Reason: Headache/Pain Mild Scale (1-3) Al Hydroxide/Mg Hydroxide (Magnesium Hydrox/Alum Hydrox 30 Ml Oral.Susp) 30 ml PO Q6H PRN PRN Reason: Heartburn/Nausea Aripiprazole (Aripiprazole 20 Mg Tablet) 20 mg PO DAILY [facility] Last Admin: 12/05/21 09:00 Dose: 20 mg Documented by: Enoxaparin Sodium (Enoxaparin Sodium 40 Mg/0.4 Ml Syringe) 40 mg SUBCUT 2100 [facility] Last Admin: 12/04/21 20:47 Dose: 40 mg Documented by: Hydroxyzine HCl (Hydroxyzine Hcl 25 Mg Tablet) 25 mg PO Q6H PRN PRN Reason: Anxiety Last Admin: 11/17/21 15:11 Dose: 25 mg Documented by: Loperamide HCl (Loperamide Hcl 2 Mg Capsule) 2 mg PO Q6H PRN PRN Reason: Diarrhea Last Admin: 11/17/21 13:40 Dose: 2 mg Documented by: Lorazepam (Lorazepam 0.5 Mg Tablet) 0.25 mg PO TID [facility] Last Admin: 12/05/21 14:25 Dose: 0.25 mg Documented by: Magnesium Hydroxide (Milk Of Magnesia 30 Ml Oral.Susp) 30 ml PO DAILY PRN PRN Reason: Constipation Modafinil (Modafinil 100 Mg Tablet) 100 mg PO DAILY [facility] Last Admin: 12/05/21 08:58 Dose: 100 mg Documented by: Omeprazole (Omeprazole 40 Mg Capsule.Dr) 40 mg PO DAILY@0630 [facility] Last Admin: 12/05/21 08:58 Dose: 40 mg Documented by: Oxcarbazepine (Oxcarbazepine 300 Mg Tablet) 300 mg PO BID [facility] Last Admin: 12/05/21 08:58 Dose: 300 mg Documented by: Sertraline HCl (Sertraline Hcl 50 Mg Tablet) 125 mg PO BEDTIME [facility] Last Admin: 12/04/21 20:45 Dose: 125 mg Documented by: Sucralfate (Sucralfate 1 Gm Tablet) 1 gm PO TID [facility] Last Admin: 12/05/21 14:25 Dose: 1 gm Documented by: Trazodone HCl (Trazodone Hcl 50 Mg Tablet) 50 mg PO BEDTIME PRN PRN Reason: Insomnia Allergies Allergies Allergy/AdvReac Type Severity Reaction Status Date / Time No Known Allergies Allergy Unverified 11/07/21 21:23 Assessment & Plan Assessment & Plan (1) MDD (major depressive disorder), recurrent, severe, with psychosis: Status: Acute Code(s): F33.3 - Major depressive disorder, recurrent, severe with psychotic symptoms Assessment and Plan: Patient seen chart reviewed case reviewed with Miranda Guzman nurse practitioner and his . The patient has experienced a number of perceived losses over the past year including his old this son going to [place] to [employer] selling their sailboat which had been a major feature in his life. Patient typically can be somewhat sentimental has a difficult time with transitions to some degree but no significant psychiatric history parted approximately 2-3 months ago. The patient was somewhat obsessional anxious depressed but there was some reported response to prior antidepressant trial as an outpatient. The patient had a severe exacerbation of symptoms great fear anxiety and somatic fears after he was treated surgically and developed an infection. The patient has a difficult time expressing his feelings but his cognitive dulling periods of irrational thinking poverty of content severe withdrawal cognitive dulling often being bed ridden are most consistent with major depression with psychotic features 11/09: Will start start sertraline 50 mg QHS to target sx of OCD with poor insight, depression. Will re-start ativan 1 mg Q6H PRN, as reports this was helpful for pt and he became more responsive on ativan. 11/10: Continue sertraline 50 mg and monitor for benefit. Lovenox started per recommendation of hospitalist for DVT prevention, as pt is immobile, despondent lying down in bed. 11/11: reviewed EKG. WIll increase sertraline to 75 mg and monitor for benefit. 11/13/21: Increase Olanzapine to 7.5 mg HS. Today pt with dysphoria, treatment resistence. Work on alliance and engaging pt in his plan of care. 11/14/21: Continue current regime. 11/15/21: Increase Olanzapine to 10 mg HS. Continue to work on alliance. 11/16/21 Continue treatment plan 11/17/21 Continue treatment plan 11/18/21 continue treatment plan encourage prn atarax for anxiety 11/19/21: Regime not effective. Pt agrees to changes 1. Discontinue Olanzapine. 2. Risperdal 1.5 mg HS- for clarity of thought 3. Ativan 0.5 mg tid-for mgt of anxiety 4. Trileptal 150 mg bid- mood stabilization. Monitor response to medications. Monitor for safety in the milieu. Discharge on stabilization. Patient seen. Chart reviewed. Discussed with team. Obtain collateral contact info?as needed 11/21/21: Continue current regime-no medication changes today. Observe 11/22/21: Increase Trileptal to 300 mg bid 11/23/21: Continue current regime ECT consultation 11/24- no medication changes 11/25 continue current medications. 11/26/21: Pt considering signing a conditional voluntary Pt agrees to consult with Dr. Inman for ECT consideration. Increase Sertraline to 100 mg daily Continue to explore with Gerry possible psychosocial circumstances leading to increase in symptoms. 11/27/2021 Patient's diagnosis seems most consistent with major depression with psychotic features. Which trying get confirmation of brain MRI given patient's marked change in behavior and severe depressive symptoms periods of irrational thinking and melancholic symptoms of fatigue lethargy cognitive dulling marked decreased appetite. Would make sure no metabolic reasons for the above otherwise would a ggressively treat for psychotic depression. Increase antidepressant trial as tolerated agree with lorazepam for pre catatonic like symptoms and would try Abilify for psychotic depression. If above not effective would consider ECT. Patient was unable to take information regarding ECT when seen literature given and literature also reviewed with patient's . She is reportedly healthcare proxy and this could become a consideration. For now patient showing some improvement. Monitor for hypotension Abilify encourage fluids. 11/28/21. Continue Abilify trial. 11/30/21: Increase Abilify to 10 mg daily Decrease Risperdal to 0.5 mg daily Increase Sertraline to 125 mg daily 12/01/21 continue current regimen for now 12/02/21 Continue current regimen for now Primary team to assess organic workup. TSH Wnl Patient the was expressed some history for what sounds like hypomanic episodes and may be experiencing bipolar depression. 12/03/21 Pt agrees to couples meeting on 12/04. Continue current regime. Discuss further changes 12/04 with the couple. 12/04/21 Increase Abilify to 20 mg. Provigil 100 mg a.m. Discontinue Risperdal Decrease Lorazepam to 0.25 mg tid Continue Sertraline, Trileptal, Trazodone 12/05/21 Continue current plan I spent 40 minutes with the patient and/or on the patient floor today, greater than?50% of which was spent counseling/coordinating care. Patient educated on: medication risk/benefits and therapeutic strategies Informed Consent: understands and further education needed Reason for contiued inpatient stay Substantial Risk for: inability to function and rapid decompensation
[2021-12-05 21:04] VITALS: BP 135/71; PULSE 66; TEMP 36.9; O2SAT 97
[2021-12-05] MEDS: Sertraline HCL 50 MG TABLET 125 MG PO (21:08)
[2021-12-05] MEDS: Enoxaparin Sodium 40 MG/0.4 ML SYRINGE SUBCUT (21:09)
[2021-12-06 06:00] VITALS: BP 134/72; PULSE 85; TEMP 36.6; O2SAT 96
[2021-12-06] MEDS: Omeprazole 40 MG CAPSULE.DR PO (06:14)
[2021-12-06 07:00] VITALS: BMI 29.1
[2021-12-06] MEDS: LORazepam 0.5 MG TABLET 0.25 MG PO ×3 (08:48→20:19)
[2021-12-06] MEDS: OXcarbazepine 300 MG TABLET PO ×2 (08:48→20:19)
[2021-12-06] MEDS: Sucralfate 1 GM TABLET PO ×3 (08:48→20:19)
[2021-12-06] MEDS: modafiniL 100 MG TABLET PO (08:48)
[2021-12-06] MEDS: ARIPiprazole 20 MG TABLET PO (08:49)
--- NOTE | 2021-12-06 14:07 | P.PNPSI_ITS ---
Subjective Subjective Date of Service: 12/06/21 Reason For Visit: unspecified bipolar and related d/o Subjective Notes: Section 7 Healthcare Proxy: No Guardianship: No Medical Problems Affecting Mental Status: No Interim History: Tolerating recent changes. Out of his room briefly today. Up and about in his room-awake alert attentive. Reports no real change in sx presentation. Medication Compliance: Yes Side effects from medications: No Attending Groups: Intermittent Review of Systems Acute medical concerns: No Medical Review of Systems: unchanged Review of Systems Reports behavioral changes and Reports memory loss Psychiatric: Reports abnormal sleep pattern, Reports anxiety, Reports behavioral changes, Reports change in appetite, Reports depression, Reports difficulty concentrating, Reports hopelessness, Reports irritability, Reports anhedonia and Reports memory loss Mental Status Exam Mental Status Exam Patient Appearance: Fatigued, Disheveled and Unkempt Patient Orientation: Person, Place, Time and Situation Level of Consciousness: Alert Patient Behavior: Talkative, Fatigued, Distractible and Good Eye Contact Mood Description: Withdrawn, Depressed and Angry Affect Description: Flat Patient Cognition Impaired: No Ability to Follow Directions: Good Speech Pattern: Spontaneous Speech Memory Description: Episodic Impaired Hallucinations: None Delusions: Not Present Perceptual Disturbances: Depersonalization and Derealization Thought Process: Distracted and Rumination Thought Content: positive for Circumstantial, positive for Perseveration, positive for Preoccupation and positive for Hypochondriasis Depressive Symptoms: Increased Anxiety, Diff. Making Decisions, Sleeping More Than Usual, Increased Fatigue, Loss of Energy and Difficulty Concentrating Judgement: Fair Diagnostics Vital Signs (24Hr): Vital Signs - 24 hr 12/05/21 21:04 12/06/21 06:00 Temperature 98.4 F 98 F Pulse Rate 66 85 Blood Pressure 135/71 134/72 Pulse Oximetry 97 96 BMI result Body Mass Index 29.1 Labs Results: 11/19/21 13:21 11/22/21 07:54 Imaging Radiology Impressions: ITS Impressions Foot X-Ray 11/08/21 17:32 IMPRESSION: Tiny Achilles heel spur. Otherwise unremarkable appearance of the left foot. Cervical Spine X-Ray 11/22/21 14:50 IMPRESSION: No fracture or malalignment. Mild degenerative changes. Forearm X-Ray 11/22/21 14:50 IMPRESSION: No acute fractures or malalignment within the imaged left upper extremity. Hip X-Ray 11/22/21 14:50 IMPRESSION: No acute fractures or malalignment. Humerus X-Ray 11/22/21 14:50 IMPRESSION: No acute fractures or malalignment within the imaged left upper extremity. Shoulder X-Ray 11/22/21 14:50 IMPRESSION: No acute fractures or malalignment within the imaged left upper extremity. Medications Medications Current Medications Acetaminophen (Acetaminophen 325 Mg Tablet) 650 mg PO Q6H PRN PRN Reason: Headache/Pain Mild Scale (1-3) Al Hydroxide/Mg Hydroxide (Magnesium Hydrox/Alum Hydrox 30 Ml Oral.Susp) 30 ml PO Q6H PRN PRN Reason: Heartburn/Nausea Aripiprazole (Aripiprazole 20 Mg Tablet) 20 mg PO DAILY [facility] Last Admin: 12/06/21 08:49 Dose: 20 mg Documented by: Enoxaparin Sodium (Enoxaparin Sodium 40 Mg/0.4 Ml Syringe) 40 mg SUBCUT 2100 [facility] Last Admin: 12/05/21 21:09 Dose: 40 mg Documented by: Hydroxyzine HCl (Hydroxyzine Hcl 25 Mg Tablet) 25 mg PO Q6H PRN PRN Reason: Anxiety Last Admin: 11/17/21 15:11 Dose: 25 mg Documented by: Loperamide HCl (Loperamide Hcl 2 Mg Capsule) 2 mg PO Q6H PRN PRN Reason: Diarrhea Last Admin: 11/17/21 13:40 Dose: 2 mg Documented by: Lorazepam (Lorazepam 0.5 Mg Tablet) 0.25 mg PO TID [facility] Last Admin: 12/06/21 08:48 Dose: 0.25 mg Documented by: Magnesium Hydroxide (Milk Of Magnesia 30 Ml Oral.Susp) 30 ml PO DAILY PRN PRN Reason: Constipation Modafinil (Modafinil 100 Mg Tablet) 100 mg PO DAILY [facility] Last Admin: 12/06/21 08:48 Dose: 100 mg Documented by: Omeprazole (Omeprazole 40 Mg Capsule.Dr) 40 mg PO DAILY@0630 [facility] Last Admin: 12/06/21 06:14 Dose: 40 mg Documented by: Oxcarbazepine (Oxcarbazepine 300 Mg Tablet) 300 mg PO BID [facility] Last Admin: 12/06/21 08:48 Dose: 300 mg Documented by: Sertraline HCl (Sertraline Hcl 50 Mg Tablet) 125 mg PO BEDTIME [facility] Last Admin: 12/05/21 21:08 Dose: 125 mg Documented by: Sucralfate (Sucralfate 1 Gm Tablet) 1 gm PO TID [facility] Last Admin: 12/06/21 08:48 Dose: 1 gm Documented by: Trazodone HCl (Trazodone Hcl 50 Mg Tablet) 50 mg PO BEDTIME PRN PRN Reason: Insomnia Allergies Allergies Allergy/AdvReac Type Severity Reaction Status Date / Time No Known Allergies Allergy Unverified 11/07/21 21:23 Assessment & Plan Assessment & Plan (1) MDD (major depressive disorder), recurrent, severe, with psychosis: Status: Acute Code(s): F33.3 - Major depressive disorder, recurrent, severe with psychotic symptoms Assessment and Plan: Patient seen chart reviewed case reviewed with Miranda Guzman nurse practitioner and his . The patient has experienced a number of perceived losses over the past year including his old this son going to [employer] to [employer] selling their sailboat which had been a major feature in his life. Patient typically can be somewhat sentimental has a difficult time with transitions to some degree but no significant psychiatric history parted approximately 2-3 months ago. The patient was somewhat obsessional anxious depressed but there was some reported response to prior antidepressant trial as an outpatient. The patient had a severe exacerbation of symptoms great fear anxiety and somatic fears after he was treated surgically and developed an infection. The patient has a difficult time expressing his feelings but his cognitive dulling periods of irrational thinking poverty of content severe withdrawal cognitive dulling often being bed ridden are most consistent with major depression with psychotic features 11/09: Will start start sertraline 50 mg QHS to target sx of OCD with poor insight, depression. Will re-start ativan 1 mg Q6H PRN, as reports this was helpful for pt and he became more responsive on ativan. 11/10: Continue sertraline 50 mg and monitor for benefit. Lovenox started per recommendation of hospitalist for DVT prevention, as pt is immobile, despondent lying down in bed. 11/11: reviewed EKG. WIll increase sertraline to 75 mg and monitor for benefit. 11/13/21: Increase Olanzapine to 7.5 mg HS. Today pt with dysphoria, treatment resistence. Work on alliance and engaging pt in his plan of care. 11/14/21: Continue current regime. 11/15/21: Increase Olanzapine to 10 mg HS. Continue to work on alliance. 11/16/21 Continue treatment plan 11/17/21 Continue treatment plan 11/18/21 continue treatment plan encourage prn atarax for anxiety 11/19/21: Regime not effective. Pt agrees to changes 1. Discontinue Olanzapine. 2. Risperdal 1.5 mg HS- for clarity of thought 3. Ativan 0.5 mg tid-for mgt of anxiety 4. Trileptal 150 mg bid- mood stabilization. Monitor response to medications. Monitor for safety in the milieu. Discharge on stabilization. Patient seen. Chart reviewed. Discussed with team. Obtain collateral contact info?as needed 11/21/21: Continue current regime-no medication changes today. Observe 11/22/21: Increase Trileptal to 300 mg bid 11/23/21: Continue current regime ECT consultation 11/24- no medication changes 11/25 continue current medications. 11/26/21: Pt considering signing a conditional voluntary Pt agrees to consult with Dr. Inman for ECT consideration. Increase Sertraline to 100 mg daily Continue to explore with Gerry possible psychosocial circumstances leading to increase in symptoms. 11/27/2021 Patient's diagnosis seems most consistent with major depression with psychotic features. Which trying get confirmation of brain MRI given patient's marked change in behavior and severe depressive symptoms periods of irrational thinking and melancholic symptoms of fatigue lethargy cognitive dulling marked decreased appetite. Would make sure no metabolic reasons for the above otherwise would aggressively treat for psychotic depression. Increase antidepressant trial as tolerated agree with lorazepam for pre catatonic like symptoms and would try Abilify for psychotic depression. If above not effective would consider ECT. Patient was unable to take information regarding ECT when seen literature given and literature also reviewed with patient's . She is reportedly healthcare proxy and this could become a consideration. For now patient showing some improvement. Monitor for hypotension Abilify encourage fluids. 11/28/21. Continue Abilify trial. 11/30/21: Increase Abilify to 10 mg daily Decrease Risperdal to 0.5 mg daily Increase Sertraline to 125 mg daily 12/01/21 continue current regimen for now 12/02/21 Continue current regimen for now Primary team to assess organic workup. TSH Wnl Patient the was expressed some history for what sounds like hypomanic episodes and may be experiencing bipolar depression. 12/03/21 Pt agrees to couples meeting on 12/04. Continue current regime. Discuss further changes 12/04 with the couple. 12/04/21 Increase Abilify to 20 mg. Provigil 100 mg a.m. Discontinue Risperdal Decrease Lorazepam to 0.25 mg tid Continue Sertraline, Trileptal, Trazodone 12/05/21 Continue current plan 12/06/21 Continue current plan I spent 15 minutes with the patient and/or on the patient floor today, greater than?50% of which was spent counseling/coordinating care. Informed Consent: further education needed Reason for contiued inpatient stay Substantial Risk for: inability to function and rapid decompensation
[2021-12-06 18:15] VITALS: BP 138/87; PULSE 64; RESP 16; TEMP 36.4; O2SAT 97
[2021-12-06] MEDS: Sertraline HCL 50 MG TABLET 125 MG PO (20:19)
[2021-12-06] MEDS: Enoxaparin Sodium 40 MG/0.4 ML SYRINGE SUBCUT (20:20)
[2021-12-07] MEDS: Omeprazole 40 MG CAPSULE.DR PO (05:56)
[2021-12-07 06:00] VITALS: BP 126/76; PULSE 65; RESP 14; TEMP 37.2; O2SAT 97
[2021-12-07] MEDS: ARIPiprazole 20 MG TABLET PO (08:46)
[2021-12-07] MEDS: OXcarbazepine 300 MG TABLET PO ×2 (08:46→20:27)
[2021-12-07] MEDS: Sucralfate 1 GM TABLET PO ×3 (08:47→20:29)
[2021-12-07] MEDS: LORazepam 0.5 MG TABLET 0.25 MG PO ×3 (08:47→20:29)
[2021-12-07] MEDS: modafiniL 100 MG TABLET PO (08:47)
--- NOTE | 2021-12-07 15:05 | HO.PSYCHPN ---
Subjective Subjective Date of Service: 12/07/21 Reason For Visit: unspecified bipolar and related d/o Subjective Notes: Section 7 Interim History: Gerry today is awake, alert, up, walking, asking about what he needs to do to go home. Discussed his son in school in [place], missing him and worry about how all of his children are perceiving his illness. Unsure if he feels any change for the better. Appears to be responding to Provigil. Medication Compliance: Yes Side effects from medications: No Attending Groups: No Review of Systems Acute medical concerns: No Medical Review of Systems: unchanged Review of Systems Reports behavioral changes and Reports memory loss Psychiatric: Reports abnormal sleep pattern, Reports anxiety, Reports behavioral changes, Reports change in appetite, Reports depression, Reports difficulty concentrating, Reports hopelessness, Reports irritability, Reports anhedonia and Reports memory loss Mental Status Exam Mental Status Exam Patient Appearance: Fatigued, Disheveled and Unkempt Patient Orientation: Person, Place, Time and Situation Level of Consciousness: Alert Patient Behavior: Talkative, Fatigued, Distractible and Good Eye Contact Mood Description: Withdrawn, Depressed and Angry Affect Description: Flat Patient Cognition Impaired: No Ability to Follow Directions: Good Speech Pattern: Spontaneous Speech Memory Description: Episodic Impaired Hallucinations: None Delusions: Not Present Perceptual Disturbances: Depersonalization and Derealization Thought Process: Distracted and Rumination Thought Content: positive for Circumstantial, positive for Perseveration, positive for Preoccupation and positive for Hypochondriasis Depressive Symptoms: Increased Anxiety, Diff. Making Decisions, Sleeping More Than Usual, Increased Fatigue, Loss of Energy and Difficulty Concentrating Judgement: Fair Diagnostics Vital Signs (24Hr): Vital Signs - 24 hr 12/06/21 18:15 12/07/21 06:00 Temperature 97.5 F 98.9 F Pulse Rate 64 65 Respiratory Rate 16 14 Blood Pressure 138/87 126/76 Pulse Oximetry 97 97 BMI result Body Mass Index 29.1 Labs Results: 11/19/21 13:21 11/22/21 07:54 Imaging Radiology Impressions: ITS Impressions Foot X-Ray 11/08/21 17:32 IMPRESSION: Tiny Achilles heel spur. Otherwise unremarkable appearance of the left foot. Cervical Spine X-Ray 11/22/21 14:50 IMPRESSION: No fracture or malalignment. Mild degenerative changes. Forearm X-Ray 11/22/21 14:50 IMPRESSION: No acute fractures or malalignment within the imaged left upper extremity. Hip X-Ray 11/22/21 14:50 IMPRESSION: No acute fractures or malalignment. Humerus X-Ray 11/22/21 14:50 IMPRESSION: No acute fractures or malalignment within the imaged left upper extremity. Shoulder X-Ray 11/22/21 14:50 IMPRESSION: No acute fractures or malalignment within the imaged left upper extremity. Medications Medications Current Medications Acetaminophen (Acetaminophen 325 Mg Tablet) 650 mg PO Q6H PRN PRN Reason: Headache/Pain Mild Scale (1-3) Al Hydroxide/Mg Hydroxide (Magnesium Hydrox/Alum Hydrox 30 Ml Oral.Susp) 30 ml PO Q6H PRN PRN Reason: Heartburn/Nausea Aripiprazole (Aripiprazole 20 Mg Tablet) 20 mg PO DAILY [facility] Last Admin: 12/07/21 08:46 Dose: 20 mg Documented by: Enoxaparin Sodium (Enoxaparin Sodium 40 Mg/0.4 Ml Syringe) 40 mg SUBCUT 2100 [facility] Last Admin: 12/06/21 20:20 Dose: 40 mg Documented by: Hydroxyzine HCl (Hydroxyzine Hcl 25 Mg Tablet) 25 mg PO Q6H PRN PRN Reason: Anxiety Last Admin: 11/17/21 15:11 Dose: 25 mg Documented by: Loperamide HCl (Loperamide Hcl 2 Mg Capsule) 2 mg PO Q6H PRN PRN Reason: Diarrhea Last Admin: 11/17/21 13:40 Dose: 2 mg Documented by: Lorazepam (Lorazepam 0.5 Mg Tablet) 0.25 mg PO TID [facility] Last Admin: 12/07/21 14:23 Dose: 0.25 mg Documented by: Magnesium Hydroxide (Milk Of Magnesia 30 Ml Oral.Susp) 30 ml PO DAILY PRN PRN Reason: Constipation Modafinil (Modafinil 100 Mg Tablet) 100 mg PO DAILY [facility] Last Admin: 12/07/21 08:47 Dose: 100 mg Documented by: Omeprazole (Omeprazole 40 Mg Capsule.Dr) 40 mg PO DAILY@0630 [facility] Last Admin: 12/07/21 05:56 Dose: 40 mg Documented by: Oxcarbazepine (Oxcarbazepine 300 Mg Tablet) 300 mg PO BID [facility] Last Admin: 12/07/21 08:46 Dose: 300 mg Documented by: Sertraline HCl (Sertraline Hcl 50 Mg Tablet) 125 mg PO BEDTIME [facility] Last Admin: 12/06/21 20:19 Dose: 125 mg Documented by: Sucralfate (Sucralfate 1 Gm Tablet) 1 gm PO TID [facility] Last Admin: 12/07/21 14:23 Dose: 1 gm Documented by: Trazodone HCl (Trazodone Hcl 50 Mg Tablet) 50 mg PO BEDTIME PRN PRN Reason: Insomnia Allergies Allergies Allergy/AdvReac Type Severity Reaction Status Date / Time No Known Allergies Allergy Unverified 11/07/21 21:23 Assessment & Plan Assessment & Plan (1) MDD (major depressive disorder), recurrent, severe, with psychosis: Status: Acute Code(s): F33.3 - Major depressive disorder, recurrent, severe with psychotic symptoms Assessment and Plan: Patient seen chart reviewed case reviewed with Miranda Guzman nurse practitioner and his . The patient has experienced a number of perceived losses over the past year including his old this son going to [employer] to [employer] selling their sailboat which had been a major feature in his life. Patient typically can be somewhat sentimental has a difficult time with transitions to some degree but no significant psychiatric history parted approximately 2-3 months ago. The patient was somewhat obsessional anxious depressed but there was some reported response to prior antidepressant trial as an outpatient. The patient had a severe exacerbation of symptoms great fear anxiety and somatic fears after he was treated surgically and developed an infection. The patient has a difficult time expressing his feelings but his cognitive dulling periods of irrational thinking poverty of content severe withdrawal cognitive dulling often being bed ridden are most consistent with major depression with psychotic features 11/09: Will start start sertraline 50 mg QHS to target sx of OCD with poor insight, depression. Will re-start ativan 1 mg Q6H PRN, as reports this was helpful for pt and he became more responsive on ativan. 11/10: Continue sertraline 50 mg and monitor for benefit. Lovenox started per recommendation of hospitalist for DVT prevention, as pt is immobile, despondent lying down in bed. 11/11: reviewed EKG. WIll increase sertraline to 75 mg and monitor for benefit. 11/13/21: Increase Olanzapine to 7.5 mg HS. Today pt with dysphoria, treatment resistence. Work on alliance and engaging pt in his plan of care. 11/14/21: Continue current regime. 11/15/21: Increase Olanzapine to 10 mg HS. Continue to work on alliance. 11/16/21 Continue treatment plan 11/17/21 Continue treatment plan 11/18/21 continue treatment plan encourage prn atarax for anxiety 11/19/21: Regime not effective. Pt agrees to changes 1. Discontinue Olanzapine. 2. Risperdal 1.5 mg HS- for clarity of thought 3. Ativan 0.5 mg tid-for mgt of anxiety 4. Trileptal 150 mg bid- mood stabilization. Monitor response to medications. Monitor for safety in the milieu. Discharge on stabilization. Patient seen. Chart reviewed. Discussed with team. Obtain collateral contact info?as needed 11/21/21: Continue current regime-no medication changes today. Observe 11/22/21: Increase Trileptal to 300 mg bid 11/23/21: Continue current regime ECT consultation 11/24- no medication changes 11/25 continue current medications. 11/26/21: Pt considering signing a conditional voluntary Pt agrees to consult with Dr. Inman for ECT consideration. Increase Sertraline to 100 mg daily Continue to explore with Gerry possible psychosocial circumstances leading to increase in symptoms. 11/27/2021 Patient's diagnosis seems most consistent with major depression with psychotic features. Which trying get confirmation of brain MRI given patient's marked change in behavior and severe depressive symptoms periods of irrational thinking and melancholic symptoms of fatigue lethargy cognitive dulling marked decreased appetite. Would make sure no metabolic reasons for the above otherwise would aggressively treat for psychotic depression. Increase antidepressant trial as tolerated agree with lorazepam for pre catatonic like symptoms and would try Abilify for psychotic depression. If above not effective would consider ECT. Patient was unable to take information regarding ECT when seen literature given and literature also reviewed with patient's . She is reportedly healthcare proxy and this could become a consideration. For now patient showing some improvement. Monitor for hypotension Abilify encourage fluids. 11/28/21. Continue Abilify trial. 11/30/21: Increase Abilify to 10 mg daily Decrease Risperdal to 0.5 mg daily Increase Sertraline to 125 mg daily 12/01/21 continue current regimen for now 12/02/21 Continue current regimen for now Primary team to assess organic workup. TSH Wnl Patient the was expressed some history for what sounds like hypomanic episodes and may be experiencing bipolar depression. 12/03/21 Pt agrees to couples meeting on 12/04. Continue current regime. Discuss further changes 12/04 with the couple. 12/04/21 Increase Abilify to 20 mg. Provigil 100 mg a.m. Discontinue Risperdal Decrease Lorazepam to 0.25 mg tid Continue Sertraline, Trileptal, Trazodone 12/05/21 Continue current plan 12/06/21 Continue current plan 12/07/21 Some improvement noted Increase Sertraline to 150 mg daily I spent 45 minutes with the patient and/or on the patient floor today, greater than?50% of which was spent counseling/coordinating care. Patient educated on: medication risk/benefits and therapeutic strategies Informed Consent: understands and further education needed Reason for contiued inpatient stay Substantial Risk for: inability to function and rapid decompensation
[2021-12-07 20:15] VITALS: BP 120/63; PULSE 70; TEMP 36.6
[2021-12-07] MEDS: Sertraline HCL 50 MG TABLET 150 MG PO (20:28)
[2021-12-07] MEDS: Enoxaparin Sodium 40 MG/0.4 ML SYRINGE SUBCUT (20:32)
[2021-12-08 06:00] VITALS: BP 117/59; PULSE 60; RESP 14; TEMP 36.6; O2SAT 95
[2021-12-08] MEDS: Omeprazole 40 MG CAPSULE.DR PO (06:25)
[2021-12-08] MEDS: ARIPiprazole 20 MG TABLET PO (08:36)
[2021-12-08] MEDS: LORazepam 0.5 MG TABLET 0.25 MG PO ×3 (08:36→20:54)
[2021-12-08] MEDS: Sucralfate 1 GM TABLET PO ×3 (08:37→20:55)
[2021-12-08] MEDS: modafiniL 100 MG TABLET PO (08:37)
[2021-12-08] MEDS: OXcarbazepine 300 MG TABLET PO ×2 (08:52→20:54)
--- NOTE | 2021-12-08 12:51 | HO.PSYCHPN ---
Subjective Subjective Date of Service: 12/08/21 Reason For Visit: unspecified bipolar and related d/o Interim History: Gerry today is awake, alert, but resting in bed. He had no particular concerns Medication Compliance: Yes Review of Systems Review of Systems Yes all other systems are reviewed and are negative Constitutional: Reports weakness Reports vertigo and Reports dizziness Cardiovascular: Reports syncope Gastrointestinal: Reports dyspepsia and Reports heartburn Reports behavioral changes, Reports confusion, Reports vertigo, Reports dizziness, Reports syncope, Reports memory loss and Reports weakness Psychiatric: Reports no additional psychiatric complaints, Reports abnormal sleep pattern, Reports anxiety, Reports behavioral changes, Reports change in appetite, Reports confusion, Reports depression, Reports difficulty concentrating, Reports auditory hallucinations (denies), Reports hopelessness, Reports irritability, Reports anhedonia, Reports memory loss, Reports mood swings, Reports panic attacks and Reports paranoia Mental Status Exam Mental Status Exam Narrative: Patient Appearance:?Unkempt Patient Orientation:?Person, Place, Time and Situation Level of Consciousness:?Alert Patient Behavior:?passive, cooperative Mood Description:? ok for now_ Affect Description:?blunted Patient Cognition Impaired:?No Ability to Follow Directions:?Good Speech Pattern:?spontaneous Memory Description:?Episodic Impaired Hallucinations:?None Delusions:?Not Present Thought Process:?goal oriented Thought Content:Denies SI or HI Depressive Symptoms:?Diff. Making Decisions, Sleeping More Than Usual, Loss of Int. in Activity, Feelings of Worthlessness, Hopelessness, Isolating-Friends/Family, Unhappiness, Increased Fatigue, Thoughts of /Suicide (denies active intent), Low Self Esteem, Loss of Energy and Difficulty Concentrating Judgment/insight: Impaired Patient Appearance: Fatigued, Disheveled and Unkempt Patient Orientation: Person, Place, Time and Situation Level of Consciousness: Alert Patient Behavior: Talkative, Fatigued, Distractible and Good Eye Contact Mood Description: Withdrawn, Depressed and Angry Affect Description: Flat Patient Cognition Impaired: No Ability to Follow Directions: Good Speech Pattern: Spontaneous Speech Memory Description: Episodic Impaired Diagnostics Vital Signs (24Hr): Vital Signs - 24 hr 12/07/21 20:15 12/08/21 06:00 Temperature 98 F 97.8 F Pulse Rate 70 60 Respiratory Rate 14 Blood Pressure 120/63 117/59 L Pulse Oximetry 95 BMI result Body Mass Index 29.1 Labs Results: 11/19/21 13:21 11/22/21 07:54 Imaging Radiology Impressions: ITS Impressions Foot X-Ray 11/08/21 17:32 IMPRESSION: Tiny Achilles heel spur. Otherwise unremarkable appearance of the left foot. Cervical Spine X-Ray 11/22/21 14:50 IMPRESSION: No fracture or malalignment. Mild degenerative changes. Forearm X-Ray 11/22/21 14:50 IMPRESSION: No acute fractures or malalignment within the imaged left upper extremity. Hip X-Ray 11/22/21 14:50 IMPRESSION: No acute fractures or malalignment. Humerus X-Ray 11/22/21 14:50 IMPRESSION: No acute fractures or malalignment within the imaged left upper extremity. Shoulder X-Ray 11/22/21 14:50 IMPRESSION: No acute fractures or malalignment within the imaged left upper extremity. Medications Medications Current Medications Acetaminophen (Acetaminophen 325 Mg Tablet) 650 mg PO Q6H PRN PRN Reason: Headache/Pain Mild Scale (1-3) Al Hydroxide/Mg Hydroxide (Magnesium Hydrox/Alum Hydrox 30 Ml Oral.Susp) 30 ml PO Q6H PRN PRN Reason: Heartburn/Nausea Aripiprazole (Aripiprazole 20 Mg Tablet) 20 mg PO DAILY [facility] Last Admin: 12/08/21 08:36 Dose: 20 mg Documented by: Enoxaparin Sodium (Enoxaparin Sodium 40 Mg/0.4 Ml Syringe) 40 mg SUBCUT 2100 [facility] Last Admin: 12/07/21 20:32 Dose: 40 mg Documented by: Hydroxyzine HCl (Hydroxyzine Hcl 25 Mg Tablet) 25 mg PO Q6H PRN PRN Reason: Anxiety Last Admin: 11/17/21 15:11 Dose: 25 mg Documented by: Lidocaine (Lidocaine 4 % Patch Adh..Patch) 1 patch TRANSDERMA DAILY [facility]; Protocol Last Admin: 12/08/21 08:51 Dose: Not Given Documented by: Loperamide HCl (Loperamide Hcl 2 Mg Capsule) 2 mg PO Q6H PRN PRN Reason: Diarrhea Last Admin: 11/17/21 13:40 Dose: 2 mg Documented by: Lorazepam (Lorazepam 0.5 Mg Tablet) 0.25 mg PO TID [facility] Last Admin: 12/08/21 08:36 Dose: 0.25 mg Documented by: Magnesium Hydroxide (Milk Of Magnesia 30 Ml Oral.Susp) 30 ml PO DAILY PRN PRN Reason: Constipation Modafinil (Modafinil 100 Mg Tablet) 100 mg PO DAILY [facility] Last Admin: 12/08/21 08:37 Dose: 100 mg Documented by: Omeprazole (Omeprazole 40 Mg Capsule.) 40 mg PO DAILY@0630 [facility] Last Admin: 12/08/21 06:25 Dose: 40 mg Documented by: Oxcarbazepine (Oxcarbazepine 300 Mg Tablet) 300 mg PO BID [facility] Last Admin: 12/08/21 08:52 Dose: 300 mg Documented by: Sertraline HCl (Sertraline Hcl 50 Mg Tablet) 150 mg PO BEDTIME [facility] Last Admin: 12/07/21 20:28 Dose: 150 mg Documented by: Sucralfate (Sucralfate 1 Gm Tablet) 1 gm PO TID [facility] Last Admin: 12/08/21 08:37 Dose: 1 gm Documented by: Trazodone HCl (Trazodone Hcl 50 Mg Tablet) 50 mg PO BEDTIME PRN PRN Reason: Insomnia Allergies Allergies Allergy/AdvReac Type Severity Reaction Status Date / Time No Known Allergies Allergy Unverified 11/07/21 21:23 Assessment & Plan Assessment & Plan (1) MDD (major depressive disorder), recurrent, severe, with psychosis: Status: Acute Code(s): F33.3 - Major depressive disorder, recurrent, severe with psychotic symptoms Assessment and Plan: Patient seen chart reviewed case reviewed with Miranda Guzman nurse practitioner and his . The patient has experienced a number of perceived losses over the past year including his old this son going to [place] to boarding school selling their sailboat which had been a major feature in his life. Patient typically can be somewhat sentimental has a difficult time with transitions to some degree but no significant psychiatric history parted approximately 2-3 months ago. The patient was somewhat obsessional anxious depressed but there was some reported response to prior antidepressant trial as an outpatient. The patient had a severe exacerbation of symptoms great fear anxiety and somatic fears after he was treated surgically and developed an infection. The patient has a difficult time expressing his feelings but his cognitive dulling periods of irrational thinking poverty of content severe withdrawal cognitive dulling often being bed ridden are most consistent with major depression with psychotic features 11/09: Will start start sertraline 50 mg QHS to target sx of OCD with poor insight, depression. Will re-start ativan 1 mg Q6H PRN, as reports this was helpful for pt and he became more responsive on ativan. 11/10: Continue sertraline 50 mg and monitor for benefit. Lovenox started per recommendation of hospitalist for DVT prevention, as pt is immobile, despondent lying down in bed. 11/11: reviewed EKG. WIll increase sertraline to 75 mg and monitor for benefit. 11/13/21: Increase Olanzapine to 7.5 mg HS. Today pt with dysphoria, treatment resistence. Work on alliance and engaging pt in his plan of care. 11/14/21: Continue current regime. 11/15/21: Increase Olanzapine to 10 mg HS. Continue to work on alliance. 11/16/21 Continue treatment plan 11/17/21 Continue treatment plan 11/18/21 continue treatment plan encourage prn atarax for anxiety 11/19/21: Regime not effective. Pt agrees to changes 1. Discontinue Olanzapine. 2. Risperdal 1.5 mg HS- for clarity of thought 3. Ativan 0.5 mg tid-for mgt of anxiety 4. Trileptal 150 mg bid- mood stabilization. Monitor response to medications. Monitor for safety in the milieu. Discharge on stabilization. Patient seen. Chart reviewed. Discussed with team. Obtain collateral contact info?as needed 11/21/21: Continue current regime-no medication changes today. Observe 11/22/21: Increase Trileptal to 300 mg bid 11/23/21: Continue current regime ECT consultation 11/24- no medication changes 11/25 continue current medications. 11/26/21: Pt considering signing a conditional voluntary Pt agrees to consult with Dr. Inman for ECT consideration. Increase Sertraline to 100 mg daily Continue to explore with Gerry possible psychosocial circumstances leading to increase in symptoms. 11/27/2021 Patient's diagnosis seems most consistent with major depression with psychotic features. Which trying get confirmation of brain MRI given patient's marked change in behavior and severe depressive symptoms periods of irrational thinking and melancholic symptoms of fatigue lethargy cognitive dulling marked decreased appetite. Would make sure no metabolic reasons for the above otherwise would aggressively treat for psychotic depression. Increase antidepressant trial as tolerated agree with lorazepam for pre catatonic like symptoms and would try Abilify for psychotic depression. If above not effective would consider ECT. Patient was unable to take information regarding ECT when seen literature given and literature also reviewed with patient's . She is reportedly healthcare proxy and this could become a consideration. For now patient showing some improvement. Monitor for hypotension Abilify encourage fluids. 11/28/21. Continue Abilify trial. 11/30/21: Increase Abilify to 10 mg daily Decrease Risperdal to 0.5 mg daily Increase Sertraline to 125 mg daily 12/01/21 continue current regimen for now 12/02/21 Continue current regimen for now Primary team to assess organic workup. TSH Wnl Patient the was expressed some history for what sounds like hypomanic episodes and may be experiencing bipolar depression. 12/03/21 Pt agrees to couples meeting on 12/04. Continue current regime. Discuss further changes 12/04 with the couple. 12/04/21 Increase Abilify to 20 mg. Provigil 100 mg a.m. Discontinue Risperdal Decrease Lorazepam to 0.25 mg tid Continue Sertraline, Trileptal, Trazodone 12/05/21 Continue current plan 12/06/21 Continue current plan 12/07/21 Some improvement noted Increase Sertraline to 150 mg daily 12/08/21 No change to current plan I spent minutes with the patient and/or on the patient floor today, greater than?50% of which was spent counseling/coordinating care. Patient educated on: diagnosis and medication risk/benefits Informed Consent: further education needed Reason for contiued inpatient stay Substantial Risk for: rapid decompensation
[2021-12-08 18:00] VITALS: BP 108/54; PULSE 70; RESP 16; TEMP 36.9; O2SAT 97
[2021-12-08] MEDS: Sertraline HCL 50 MG TABLET 150 MG PO (20:55)
[2021-12-08] MEDS: Enoxaparin Sodium 40 MG/0.4 ML SYRINGE SUBCUT (21:36)
[2021-12-09 06:00] VITALS: BP 139/83; PULSE 59; RESP 18; TEMP 36.7; O2SAT 97
[2021-12-09] MEDS: Omeprazole 40 MG CAPSULE.DR PO (06:29)
[2021-12-09] MEDS: modafiniL 100 MG TABLET PO (08:50)
[2021-12-09] MEDS: ARIPiprazole 20 MG TABLET PO (08:50)
[2021-12-09] MEDS: LORazepam 0.5 MG TABLET 0.25 MG PO ×3 (08:50→21:35)
[2021-12-09] MEDS: OXcarbazepine 300 MG TABLET PO ×2 (08:51→21:35)
[2021-12-09] MEDS: Sucralfate 1 GM TABLET PO ×3 (08:52→21:34)
[2021-12-09 10:00] VITALS: BP 125/76; PULSE 66
[2021-12-09 17:10] VITALS: BP 112/64; PULSE 67; TEMP 36.2
--- NOTE | 2021-12-09 19:07 | P.PNPSI_ITS ---
Subjective Subjective Date of Service: 12/09/21 Reason For Visit: unspecified bipolar and related d/o Interim History: Gerry was able to shower and shave with the support of nursing. He was pleased with positive feedback and agreed that it helped to boost his mood. He had no particular concerns Review of Systems Review of Systems Yes all other systems are reviewed and are negative Constitutional: Reports weakness Reports vertigo and Reports dizziness Cardiovascular: Reports syncope Gastrointestinal: Reports dyspepsia and Reports heartburn Reports behavioral changes, Reports confusion, Reports vertigo, Reports dizziness, Reports syncope, Reports memory loss and Reports weakness Psychiatric: Reports no additional psychiatric complaints, Reports abnormal sleep pattern, Reports anxiety, Reports behavioral changes, Reports change in appetite, Reports confusion, Reports depression, Reports difficulty concentrating, Reports auditory hallucinations (denies), Reports hopelessness, Reports irritability, Reports anhedonia, Reports memory loss, Reports mood swings, Reports panic attacks and Reports paranoia Mental Status Exam Mental Status Exam Narrative: Patient Appearance:?Unkempt Patient Orientation:?Person, Place, Time and Situation Level of Consciousness:?Alert Patient Behavior:?passive, cooperative Mood Description:? ok for now_ Affect Description:?blunted Patient Cognition Impaired:?No Ability to Follow Directions:?Good Speech Pattern:?spontaneous Memory Description:?Episodic Impaired Hallucinations:?None Delusions:?Not Present Thought Process:?goal oriented Thought Content:Denies SI or HI Depressive Symptoms:?Diff. Making Decisions, Sleeping More Than Usual, Loss of Int. in Activity, Feelings of Worthlessness, Hopelessness, Isolating- Friends/Family, Unhappiness, Increased Fatigue, Thoughts of /Suicide (denies active intent), Low Self Esteem, Loss of Energy and Difficulty Concentrating Judgment/insight: Impaired Patient Appearance: Fatigued, Disheveled and Unkempt Patient Orientation: Person, Place, Time and Situation Level of Consciousness: Alert Patient Behavior: Talkative, Fatigued, Distractible and Good Eye Contact Mood Description: Withdrawn, Depressed and Angry Affect Description: Flat Patient Cognition Impaired: No Ability to Follow Directions: Good Speech Pattern: Spontaneous Speech Memory Description: Episodic Impaired Diagnostics Vital Signs (24Hr): Vital Signs - 24 hr 12/09/21 06:00 12/09/21 10:00 Temperature 98.1 F Pulse Rate 59 66 Respiratory Rate 18 Blood Pressure 139/83 125/76 Pulse Oximetry 97 BMI result Body Mass Index 29.1 Labs Results: 11/19/21 13:21 11/22/21 07:54 Imaging Radiology Impressions: ITS Impressions Foot X-Ray 11/08/21 17:32 IMPRESSION: Tiny Achilles heel spur. Otherwise unremarkable appearance of the left foot. Cervical Spine X-Ray 11/22/21 14:50 IMPRESSION: No fracture or malalignment. Mild degenerative changes. Forearm X-Ray 11/22/21 14:50 IMPRESSION: No acute fractures or malalignment within the imaged left upper extremity. Hip X-Ray 11/22/21 14:50 IMPRESSION: No acute fractures or malalignment. Humerus X-Ray 11/22/21 14:50 IMPRESSION: No acute fractures or malalignment within the imaged left upper extremity. Shoulder X-Ray 11/22/21 14:50 IMPRESSION: No acute fractures or malalignment within the imaged left upper extremity. Medications Medications Current Medications Acetaminophen (Acetaminophen 325 Mg Tablet) 650 mg PO Q6H PRN PRN Reason: Headache/Pain Mild Scale (1-3) Al Hydroxide/Mg Hydroxide (Magnesium Hydrox/Alum Hydrox 30 Ml Oral.Susp) 30 ml PO Q6H PRN PRN Reason: Heartburn/Nausea Aripiprazole (Aripiprazole 20 Mg Tablet) 20 mg PO DAILY [facility] Last Admin: 12/09/21 08:50 Dose: 20 mg Documented by: Enoxaparin Sodium (Enoxaparin Sodium 40 Mg/0.4 Ml Syringe) 40 mg SUBCUT 2100 [facility] Last Admin: 12/08/21 21:36 Dose: 40 mg Documented by: Hydroxyzine HCl (Hydroxyzine Hcl 25 Mg Tablet) 25 mg PO Q6H PRN PRN Reason: Anxiety Last Admin: 11/17/21 15:11 Dose: 25 mg Documented by: Lidocaine (Lidocaine 4 % Patch Adh..Patch) 1 patch TRANSDERMA DAILY [facility]; Protocol Last Admin: 12/09/21 10:42 Dose: Not Given Documented by: Loperamide HCl (Loperamide Hcl 2 Mg Capsule) 2 mg PO Q6H PRN PRN Reason: Diarrhea Last Admin: 11/17/21 13:40 Dose: 2 mg Documented by: Lorazepam (Lorazepam 0.5 Mg Tablet) 0.25 mg PO TID [facility] Last Admin: 12/09/21 14:33 Dose: 0.25 mg Documented by: Magnesium Hydroxide (Milk Of Magnesia 30 Ml Oral.Susp) 30 ml PO DAILY PRN PRN Reason: Constipation Modafinil (Modafinil 100 Mg Tablet) 100 mg PO DAILY [facility] Last Admin: 12/09/21 08:50 Dose: 100 mg Documented by: Omeprazole (Omeprazole 40 Mg Capsule.) 40 mg PO DAILY@0630 [facility] Last Admin: 12/09/21 06:29 Dose: 40 mg Documented by: Oxcarbazepine (Oxcarbazepine 300 Mg Tablet) 300 mg PO BID [facility] Last Admin: 12/09/21 08:51 Dose: 300 mg Documented by: Sertraline HCl (Sertraline Hcl 50 Mg Tablet) 150 mg PO BEDTIME [facility] Last Admin: 12/08/21 20:55 Dose: 150 mg Documented by: Sucralfate (Sucralfate 1 Gm Tablet) 1 gm PO TID [facility] Last Admin: 12/09/21 14:34 Dose: 1 gm Documented by: Trazodone HCl (Trazodone Hcl 50 Mg Tablet) 50 mg PO BEDTIME PRN PRN Reason: Insomnia Allergies Allergies Allergy/AdvReac Type Severity Reaction Status Date / Time No Known Allergies Allergy Unverified 11/07/21 21:23 Assessment & Plan Assessment & Plan (1) MDD (major depressive disorder), recurrent, severe, with psychosis: Status: Acute Code(s): F33.3 - Major depressive disorder, recurrent, severe with psychotic symptoms Assessment and Plan: Patient seen chart reviewed case reviewed with Miranda Guzman nurse practitioner and his . The patient has experienced a number of perceived losses over the past year including his old this son going to [employer] to boarding school selling their sailboat which had been a major feature in his life. Patient typically can be somewhat sentimental has a difficult time with transitions to some degree but no significant psychiatric history parted approximately 2-3 months ago. The patient was somewhat obsessional anxious depressed but there was some reported response to prior antidepressant trial as an outpatient. The patient had a severe exacerbation of symptoms great fear anxiety and somatic fears after he was treated surgically and developed an infection. The patient has a difficult time expressing his feelings but his cognitive dulling periods of irrational thinking poverty of content severe withdrawal cognitive dulling often being bed ridden are most consistent with major depression with psychotic features 11/09: Will start start sertraline 50 mg QHS to target sx of OCD with poor insight, depression. Will re-start ativan 1 mg Q6H PRN, as reports this was helpful for pt and he became more responsive on ativan. 11/10: Continue sertraline 50 mg and monitor for benefit. Lovenox started per recommendation of hospitalist for DVT prevention, as pt is immobile, despondent lying down in bed. 11/11: reviewed EKG. WIll increase sertraline to 75 mg and monitor for benefit. 11/13/21: Increase Olanzapine to 7.5 mg HS. Today pt with dysphoria, treatment resistence. Work on alliance and engaging pt in his plan of care. 11/14/21: Continue current regime. 11/15/21: Increase Olanzapine to 10 mg HS. Continue to work on alliance. 11/16/21 Continue treatment plan 11/17/21 Continue treatment plan 11/18/21 continue treatment plan encourage prn atarax for anxiety 11/19/21: Regime not effective. Pt agrees to changes 1. Discontinue Olanzapine. 2. Risperdal 1.5 mg HS- for clarity of thought 3. Ativan 0.5 mg tid-for mgt of anxiety 4. Trileptal 150 mg bid- mood stabilization. Monitor response to medications. Monitor for safety in the milieu. Discharge on stabilization. Patient seen. Chart reviewed. Discussed with team. Obtain collateral contact info?as needed 11/21/21: Continue current regime-no medication changes today. Observe 11/22/21: Increase Trileptal to 300 mg bid 11/23/21: Continue current regime ECT consultation 11/24- no medication changes 11/25 continue current medications. 11/26/21: Pt considering signing a conditional voluntary Pt agrees to consult with Dr. Inman for ECT consideration. Increase Sertraline to 100 mg daily Continue to explore with Gerry possible psychosocial circumstances leading to increase in symptoms. 11/27/2021 Patient's diagnosis seems most consistent with major depression with psychotic features. Which trying get confirmation of brain MRI given patient's marked change in behavior and severe depressive symptoms periods of irrational thinking and melancholic symptoms of fatigue lethargy cognitive dulling marked decreased appetite. Would make sure no metabolic reasons for the above otherwise would aggressively treat for psychotic depression. Increase antidepressant trial as tolerated agree with lorazepam for pre catatonic like symptoms and would try Abilify for psychotic depression. If above not effective would consider ECT. Patient was unable to take information regarding ECT when seen literature given and literature also reviewed with patient's . She is reportedly healthcare proxy and this could become a consideration. For now patient showing some improvement. Monitor for hypotension Abilify encourage fluids. 11/28/21. Continue Abilify trial. 11/30/21: Increase Abilify to 10 mg daily Decrease Risperdal to 0.5 mg daily Increase Sertraline to 125 mg daily 12/01/21 continue current regimen for now 12/02/21 Continue current regimen for now Primary team to assess organic workup. TSH Wnl Patient the was expressed some history for what sounds like hypomanic episodes and may be experiencing bipolar depression. 12/03/21 Pt agrees to couples meeting on 12/04. Continue current regime. Discuss further changes 12/04 with the couple. 12/04/21 Increase Abilify to 20 mg. Provigil 100 mg a.m. Discontinue Risperdal Decrease Lorazepam to 0.25 mg tid Continue Sertraline, Trileptal, Trazodone 12/05/21 Continue current plan 12/06/21 Continue current plan 12/07/21 Some improvement noted Increase Sertraline to 150 mg daily 12/08/21 No change to current plan 12/09/21 No change to treatmen plan I spent minutes with the patient and/or on the patient floor today, sapnaa ter than?50% of which was spent counseling/coordinating care. Patient educated on: medication risk/benefits Informed Consent: further education needed Reason for contiued inpatient stay Substantial Risk for: rapid decompensation
[2021-12-09] MEDS: Sertraline HCL 50 MG TABLET 150 MG PO (21:33)
[2021-12-09] MEDS: Enoxaparin Sodium 40 MG/0.4 ML SYRINGE SUBCUT (21:37)
[2021-12-10] MEDS: Omeprazole 40 MG CAPSULE.DR PO (06:03)
[2021-12-10 06:14] VITALS: BP 127/62; PULSE 62; RESP 17; TEMP 36.3; O2SAT 97
[2021-12-10] MEDS: modafiniL 100 MG TABLET PO (08:30)
[2021-12-10] MEDS: Sucralfate 1 GM TABLET PO ×3 (08:30→21:42)
[2021-12-10] MEDS: ARIPiprazole 20 MG TABLET PO (08:31)
[2021-12-10] MEDS: LORazepam 0.5 MG TABLET 0.25 MG PO ×3 (08:31→21:42)
[2021-12-10] MEDS: OXcarbazepine 300 MG TABLET PO ×2 (08:31→21:42)
--- NOTE | 2021-12-10 17:43 | HO.PSYCHPN ---
Subjective Subjective Date of Service: 12/10/21 Reason For Visit: unspecified bipolar and related d/o Subjective Notes: Section 7 Guardianship: No Interim History: No, I don't have any thoughts-I think it is medical, not depression. I will think about more testing. Where will you put me next .? Team reports pt showered, shaved over with weekend with much encouragement. He continues with. Continues with self-neglect and abandonment of work, activity and social contacts. Provigil trial continues. Discussed initiating neuro psych testing and pt signing [facility] for Sep 2021 MRI-he declined, but will think about it. Medication Compliance: Yes Side effects from medications: No Attending Groups: No Review of Systems Acute medical concerns: No Medical Review of Systems: unchanged Review of Systems Reports behavioral changes and Reports memory loss Psychiatric: Reports behavioral changes, Reports depression, Reports difficulty concentrating, Reports anhedonia, Reports memory loss and Reports suicidal ideation (denies) Mental Status Exam Mental Status Exam Patient Appearance: Fatigued and Disheveled Patient Orientation: Person, Place, Time and Situation Level of Consciousness: Alert Patient Behavior: Appropriate, Talkative, Resistive to Care and Good Eye Contact Mood Description: Withdrawn, Depressed and Blunted Affect Description: Blunted Patient Cognition Impaired: No Ability to Follow Directions: Good Speech Pattern: Spontaneous Speech Memory Description: Episodic Impaired Hallucinations: None Perceptual Disturbances: Derealization Thought Process: Distracted, Rumination and Evasive Thought Content: positive for [place], positive for Perseveration, positive for Thought Blocking and positive for Suicidal Ideation (denies) Depressive Symptoms: Diff. Making Decisions, Sleeping More Than Usual, Loss of Int. in Activity, Feelings of Worthlessness, Hopelessness, Isolating-Friends/Family, Unhappiness, Increased Fatigue, Thoughts of /Suicide (denies), Loss of Energy and Difficulty Concentrating Judgement: Fair Diagnostics Vital Signs (24Hr): Vital Signs - 24 hr 12/10/21 06:14 Temperature 97.4 F Pulse Rate 62 Respiratory Rate 17 Blood Pressure 127/62 Pulse Oximetry 97 BMI result Body Mass Index 29.1 Labs Results: 12/14/21 08:22 12/14/21 08:23 Imaging Radiology Impressions: ITS Impressions Foot X-Ray 11/08/21 17:32 IMPRESSION: Tiny Achilles heel spur. Otherwise unremarkable appearance of the left foot. Cervical Spine X-Ray 11/22/21 14:50 IMPRESSION: No fracture or malalignment. Mild degenerative changes. Forearm X-Ray 11/22/21 14:50 IMPRESSION: No acute fractures or malalignment within the imaged left upper extremity. Hip X-Ray 11/22/21 14:50 IMPRESSION: No acute fractures or malalignment. Humerus X-Ray 11/22/21 14:50 IMPRESSION: No acute fractures or malalignment within the imaged left upper extremity. Shoulder X-Ray 11/22/21 14:50 IMPRESSION: No acute fractures or malalignment within the imaged left upper extremity. Medications Medications Current Medications Acetaminophen (Acetaminophen 325 Mg Tablet) 650 mg PO Q6H PRN PRN Reason: Headache/Pain Mild Scale (1-3) Al Hydroxide/Mg Hydroxide (Magnesium Hydrox/Alum Hydrox 30 Ml Oral.Susp) 30 ml PO Q6H PRN PRN Reason: Heartburn/Nausea Aripiprazole (Aripiprazole 20 Mg Tablet) 20 mg PO DAILY [facility] Last Admin: 12/10/21 08:31 Dose: 20 mg Documented by: Enoxaparin Sodium (Enoxaparin Sodium 40 Mg/0.4 Ml Syringe) 40 mg SUBCUT 2100 [facility] Last Admin: 12/09/21 21:37 Dose: 40 mg Documented by: Hydroxyzine HCl (Hydroxyzine Hcl 25 Mg Tablet) 25 mg PO Q6H PRN PRN Reason: Anxiety Last Admin: 11/17/21 15:11 Dose: 25 mg Documented by: Lidocaine (Lidocaine 4 % Patch Adh..Patch) 1 patch TRANSDERMA DAILY [facility]; Protocol Last Admin: 12/10/21 08:35 Dose: Not Given Documented by: Loperamide HCl (Loperamide Hcl 2 Mg Capsule) 2 mg PO Q6H PRN PRN Reason: Diarrhea Last Admin: 11/17/21 13:40 Dose: 2 mg Documented by: Lorazepam (Lorazepam 0.5 Mg Tablet) 0.25 mg PO TID [facility] Last Admin: 12/10/21 14:26 Dose: 0.25 mg Documented by: Magnesium Hydroxide (Milk Of Magnesia 30 Ml Oral.Susp) 30 ml PO DAILY PRN PRN Reason: Constipation Modafinil (Modafinil 100 Mg Tablet) 100 mg PO DAILY [facility] Last Admin: 12/10/21 08:30 Dose: 100 mg Documented by: Omeprazole (Omeprazole 40 Mg Capsule.Dr) 40 mg PO DAILY@0630 [facility] Last Admin: 12/10/21 06:03 Dose: 40 mg Documented by: Oxcarbazepine (Oxcarbazepine 300 Mg Tablet) 300 mg PO BID [facility] Last Admin: 12/10/21 08:31 Dose: 300 mg Documented by: Sertraline HCl (Sertraline Hcl 50 Mg Tablet) 150 mg PO BEDTIME [facility] Last Admin: 12/09/21 21:33 Dose: 150 mg Documented by: Sucralfate (Sucralfate 1 Gm Tablet) 1 gm PO TID [facility] Last Admin: 12/10/21 14:26 Dose: 1 gm Documented by: Trazodone HCl (Trazodone Hcl 50 Mg Tablet) 50 mg PO BEDTIME PRN PRN Reason: Insomnia Allergies Allergies Allergy/AdvReac Type Severity Reaction Status Date / Time No Known Allergies Allergy Unverified 11/07/21 21:23 Assessment & Plan Assessment & Plan (1) MDD (major depressive disorder), recurrent, severe, with psychosis: Status: Acute Code(s): F33.3 - Major depressive disorder, recurrent, severe with psychotic symptoms Plan Patient seen chart reviewed case reviewed with Miranda Guzman nurse practitioner and his . The patient has experienced a number of perceived losses over the past year including his old this son going to [employer] to boarding school selling their sailboat which had been a major feature in his life. Patient typically can be somewhat sentimental has a difficult time with transitions to some degree but no significant psychiatric history parted approximately 2-3 months ago. The patient was somewhat obsessional anxious depressed but there was some reported response to prior antidepressant trial as an outpatient. The patient had a severe exacerbation of symptoms great fear anxiety and somatic fears after he was treated surgically and developed an infection. The patient has a difficult time expressing his feelings but his cognitive dulling periods of irrational thinking poverty of content severe withdrawal cognitive dulling often being bed ridden are most consistent with major depression with psychotic features 11/09: Will start start sertraline 50 mg QHS to target sx of OCD with poor insight, depression. Will re-start ativan 1 mg Q6H PRN, as reports this was helpful for pt and he became more responsive on ativan. 11/10: Continue sertraline 50 mg and monitor for benefit. Lovenox started per recommendation of hospitalist for DVT prevention, as pt is immobile, despondent lying down in bed. 11/11: reviewed EKG. WIll increase sertraline to 75 mg and monitor for benefit. 11/13/21: Increase Olanzapine to 7.5 mg HS. Today pt with dysphoria, treatment resistence. Work on alliance and engaging pt in his plan of care. 11/14/21: Continue current regime. 11/15/21: Increase Olanzapine to 10 mg HS. Continue to work on alliance. 11/16/21 Continue treatment plan 11/17/21 Continue treatment plan 11/18/21 continue treatment plan encourage prn atarax for anxiety 11/19/21: Regime not effective. Pt agrees to changes 1. Discontinue Olanzapine. 2. Risperdal 1.5 mg HS- for clarity of thought 3. Ativan 0.5 mg tid-for mgt of anxiety 4. Trileptal 150 mg bid- mood stabilization. Monitor response to medications. Monitor for safety in the milieu. Discharge on stabilization. Patient seen. Chart reviewed. Discussed with team. Obtain collateral contact info?as needed 11/21/21: Continue current regime-no medication changes today. Observe 11/22/21: Increase Trileptal to 300 mg bid 11/23/21: Continue current regime ECT consultation 11/24- no medication changes 11/25 continue current medications. 11/26/21: Pt considering signing a conditional voluntary Pt agrees to consult with Dr. Inman for ECT consideration. Increase Sertraline to 100 mg daily Continue to explore with Gerry possible psychosocial circumstances leading to increase in symptoms. 11/27/2021 Patient's diagnosis seems most consistent with major depression with psychotic features. Which trying get confirmation of brain MRI given patient's marked change in behavior and severe depressive symptoms periods of irrational thinking and melancholic symptoms of fatigue lethargy cognitive dulling marked decreased appetite. Would make sure no metabolic reasons for the above otherwise would aggressively treat for psychotic depression. Increase antidepressant trial as tolerated agree with lorazepam for pre catatonic like symptoms and would try Abilify for psychotic depression. If above not effective would consider ECT. Patient was unable to take information regarding ECT when seen literature given and literature also reviewed with patient's . She is reportedly healthcare proxy and this could become a consideration. For now patient showing some improvement. Monitor for hypotension Abilify encourage fluids. 11/28/21. Continue Abilify trial. 11/30/21: Increase Abilify to 10 mg daily Decrease Risperdal to 0.5 mg daily Increase Sertraline to 125 mg daily 12/01/21 continue current regimen for now 12/02/21 Continue current regimen for now Primary team to assess organic workup. TSH Wnl Patient the was expressed some history for what sounds like hypomanic episodes and may be experiencing bipolar depression. 12/03/21 Pt agrees to couples meeting on 12/04. Continue current regime. Discuss further changes 12/04 with the couple. 12/04/21 Increase Abilify to 20 mg. Provigil 100 mg a.m. Discontinue Risperdal Decrease Lorazepam to 0.25 mg tid Continue Sertraline, Trileptal, Trazodone 12/05/21 Continue current plan 12/06/21 Continue current plan 12/07/21 Some improvement noted Increase Sertraline to 150 mg daily 12/08/21 No change to current plan 12/09/21 No change to treatmen plan 12/10/21 Continue Provigil trial Discussed with pt beginning neuro psych testing, further neuro eval. He will consider. I spent 40 minutes with the patient and/or on the patient floor today, greater than?50% of which was spent counseling/coordinating care. Patient educated on: diagnosis, medication risk/benefits, therapeutic strategies and medical condition Informed Consent: understands and further education needed Reason for contiued inpatient stay Substantial Risk for: inability to function, rapid decompensation and med/psych decompensation
[2021-12-10 18:45] VITALS: BP 133/73; PULSE 68; TEMP 36.4; O2SAT 96
[2021-12-10] MEDS: Enoxaparin Sodium 40 MG/0.4 ML SYRINGE SUBCUT (21:38)
[2021-12-10] MEDS: Sertraline HCL 50 MG TABLET 150 MG PO (21:42)
[2021-12-11] MEDS: Omeprazole 40 MG CAPSULE.DR PO (06:34)
[2021-12-11 06:40] VITALS: BP 125/69; PULSE 63; RESP 17; TEMP 36.6; O2SAT 97
[2021-12-11] MEDS: OXcarbazepine 300 MG TABLET PO ×2 (09:18→21:34)
[2021-12-11] MEDS: ARIPiprazole 20 MG TABLET PO (09:18)
[2021-12-11] MEDS: LORazepam 0.5 MG TABLET 0.25 MG PO ×3 (09:18→21:34)
[2021-12-11] MEDS: modafiniL 100 MG TABLET PO (09:19)
[2021-12-11] MEDS: Sucralfate 1 GM TABLET PO ×3 (09:19→21:34)
--- NOTE | 2021-12-11 10:45 | P.PNPSI_ITS ---
Subjective Subjective Date of Service: 12/11/21 Reason For Visit: unspecified bipolar and related d/o Subjective Notes: Section 7 Interim History: Pt has been more visible in the unit. His hygiene is improved. He reports improvement in mood but unable to explain in what way. He denies SI/HI. He reports he is sleeping well. He is taking medications as prescribed. No behavioral concerns. He denies pain or concerns with medications. Medication Compliance: Yes Review of Systems Review of Systems Yes all other systems are reviewed and are negative Constitutional: Reports weakness Reports vertigo and Reports dizziness Cardiovascular: Reports syncope Gastrointestinal: Reports dyspepsia and Reports heartburn Reports behavioral changes, Reports confusion, Reports vertigo, Reports dizziness, Reports syncope, Reports memory loss and Reports weakness Psychiatric: Reports no additional psychiatric complaints, Reports abnormal sleep pattern, Reports anxiety, Reports behavioral changes, Reports change in appetite, Reports confusion, Reports depression, Reports difficulty concentra ting, Reports auditory hallucinations (denies), Reports hopelessness, Reports irritability, Reports anhedonia, Reports memory loss, Reports mood swings, Reports panic attacks and Reports paranoia Mental Status Exam Mental Status Exam Narrative: Patient Appearance:?Unkempt Patient Orientation:?Person, Place, Time and Situation Level of Consciousness:?Alert Patient Behavior:?passive, cooperative Mood Description:? ok for now_ Affect Description:?slightly brighter Patient Cognition Impaired:?No Ability to Follow Directions:?Good Speech Pattern:?spontaneous Memory Description:?Episodic Impaired Hallucinations:?None Delusions:?Not Present Thought Process:?goal oriented Thought Content:Denies SI or HI Depressive Symptoms:?Diff. Making Decisions, Sleeping More Than Usual, Loss of Int. in Activity, Feelings of Worthlessness, Hopelessness, Isolating- Friends/Family, Unhappiness, Increased Fatigue, Thoughts of /Suicide (denies active intent), Low Self Esteem, Loss of Energy and Difficulty Concentrating Judgment/insight: Impaired Diagnostics Vital Signs (24Hr): Vital Signs - 24 hr 12/10/21 18:45 12/11/21 06:40 Temperature 97.6 F 97.9 F Pulse Rate 68 63 Respiratory Rate 17 Blood Pressure 133/73 125/69 Pulse Oximetry 96 97 BMI result Body Mass Index 29.1 Labs Results: 11/19/21 13:21 11/22/21 07:54 Imaging Radiology Impressions: ITS Impressions Foot X-Ray 11/08/21 17:32 IMPRESSION: Tiny Achilles heel spur. Otherwise unremarkable appearance of the left foot. Cervical Spine X-Ray 11/22/21 14:50 IMPRESSION: No fracture or malalignment. Mild degenerative changes. Forearm X-Ray 11/22/21 14:50 IMPRESSION: No acute fractures or malalignment within the imaged left upper extremity. Hip X-Ray 11/22/21 14:50 IMPRESSION: No acute fractures or malalignment. Humerus X-Ray 11/22/21 14:50 IMPRESSION: No acute fractures or malalignment within the imaged left upper extremity. Shoulder X-Ray 11/22/21 14:50 IMPRESSION: No acute fractures or malalignment within the imaged left upper extremity. Medications Medications Current Medications Acetaminophen (Acetaminophen 325 Mg Tablet) 650 mg PO Q6H PRN PRN Reason: Headache/Pain Mild Scale (1-3) Al Hydroxide/Mg Hydroxide (Magnesium Hydrox/Alum Hydrox 30 Ml Oral.Susp) 30 ml PO Q6H PRN PRN Reason: Heartburn/Nausea Aripiprazole (Aripiprazole 20 Mg Tablet) 20 mg PO DAILY [facility] Last Admin: 12/11/21 09:18 Dose: 20 mg Documented by: Enoxaparin Sodium (Enoxaparin Sodium 40 Mg/0.4 Ml Syringe) 40 mg SUBCUT 2100 [facility] Last Admin: 12/10/21 21:38 Dose: 40 mg Documented by: Hydroxyzine HCl (Hydroxyzine Hcl 25 Mg Tablet) 25 mg PO Q6H PRN PRN Reason: Anxiety Last Admin: 11/17/21 15:11 Dose: 25 mg Documented by: Lidocaine (Lidocaine 4 % Patch Adh..Patch) 1 patch TRANSDERMA DAILY [facility]; Protocol Last Admin: 12/11/21 09:25 Dose: Not Given Documented by: Loperamide HCl (Loperamide Hcl 2 Mg Capsule) 2 mg PO Q6H PRN PRN Reason: Diarrhea Last Admin: 11/17/21 13:40 Dose: 2 mg Documented by: Lorazepam (Lorazepam 0.5 Mg Tablet) 0.25 mg PO TID [facility] Last Admin: 12/11/21 09:18 Dose: 0.25 mg Documented by: Magnesium Hydroxide (Milk Of Magnesia 30 Ml Oral.Susp) 30 ml PO DAILY PRN PRN Reason: Constipation Modafinil (Modafinil 100 Mg Tablet) 100 mg PO DAILY [facility] Last Admin: 12/11/21 09:19 Dose: 100 mg Documented by: Omeprazole (Omeprazole 40 Mg Capsule.) 40 mg PO DAILY@0630 [facility] Last Admin: 12/11/21 06:34 Dose: 40 mg Documented by: Oxcarbazepine (Oxcarbazepine 300 Mg Tablet) 300 mg PO BID [facility] Last Admin: 12/11/21 09:18 Dose: 300 mg Documented by: Sertraline HCl (Sertraline Hcl 50 Mg Tablet) 150 mg PO BEDTIME [facility] Last Admin: 12/10/21 21:42 Dose: 150 mg Documented by: Sucralfate (Sucralfate 1 Gm Tablet) 1 gm PO TID [facility] Last Admin: 12/11/21 09:19 Dose: 1 gm Documented by: Trazodone HCl (Trazodone Hcl 50 Mg Tablet) 50 mg PO BEDTIME PRN PRN Reason: Insomnia Allergies Allergies Allergy/AdvReac Type Severity Reaction Status Date / Time No Known Allergies Allergy Unverified 11/07/21 21:23 Assessment & Plan Assessment & Plan (1) MDD (major depressive disorder), recurrent, severe, with psychosis: Status: Acute Code(s): F33.3 - Major depressive disorder, recurrent, severe with psychotic symptoms Assessment and Plan: Patient seen chart reviewed case reviewed with Miranda Guzman nurse practitioner and his . The patient has experienced a number of perceived losses over the past year including his old this son going to [employer] to [employer] selling their sailboat which had been a major feature in his life. Patient typically can be somewhat sentimental has a difficult time with transitions to some degree but no significant psychiatric history parted approximately 2-3 months ago. The patient was somewhat obsessional anxious depressed but there was some reported response to prior antidepressant trial as an outpatient. The patient had a severe exacerbation of symptoms great fear anxiety and somatic fears after he was treated surgically and developed an infection. The patient has a difficult time expressing his feelings but his cognitive dulling periods of irrational thinking poverty of content severe withdrawal cognitive dulling often being bed ridden are most consistent with major depression with psychotic features 11/09: Will start start sertraline 50 mg QHS to target sx of OCD with poor insight, depression. Will re-start ativan 1 mg Q6H PRN, as reports this was helpful for pt and he became more responsive on ativan. 11/10: Continue sertraline 50 mg and monitor for benefit. Lovenox started per recommendation of hospitalist for DVT prevention, as pt is immobile, despondent lying down in bed. 11/11: reviewed EKG. WIll increase sertraline to 75 mg and monitor for benefit. 11/13/21: Increase Olanzapine to 7.5 mg HS. Today pt with dysphoria, treatment resistence. Work on alliance and engaging pt in his plan of care. 11/14/21: Continue current regime. 11/15/21: Increase Olanzapine to 10 mg HS. Continue to work on alliance. 11/16/21 Continue treatment plan 11/17/21 Continue treatment plan 11/18/21 continue treatment plan encourage prn atarax for anxiety 11/19/21: Regime not effective. Pt agrees to changes 1. Discontinue Olanzapine. 2. Risperdal 1.5 mg HS- for clarity of thought 3. Ativan 0.5 mg tid-for mgt of anxiety 4. Trileptal 150 mg bid- mood stabilization. Monitor response to medications. Monitor for safety in the milieu. Discharge on stabilization. Patient seen. Chart reviewed. Discussed with team. Obtain collateral contact info?as needed 11/21/21: Continue current regime-no medication changes today. Observe 11/22/21: Increase Trileptal to 300 mg bid 11/23/21: Continue current regime ECT consultation 11/24- no medication changes 11/25 continue current medications. 11/26/21: Pt considering signing a conditional voluntary Pt agrees to consult with Dr. Inman for ECT consideration. Increase Sertraline to 100 mg daily Continue to explore with Gerry possible psychosocial circumstances leading to increase in symptoms. 11/27/2021 Patient's diagnosis seems most consistent with major depression with psychotic features. Which trying get confirmation of brain MRI given patient's marked change in behavior and severe depressive symptoms periods of irrational thinking and melancholic symptoms of fatigue lethargy cognitive dulling marked decreased appetite. Would make sure no metabolic reasons for the above otherwise would aggressively treat for psychotic depression. Increase antidepressant trial as tolerated agree with lorazepam for pre catatonic like symptoms and would try Abilify for psychotic depression. If above not effective would consider ECT. Patient was unable to take information regarding ECT when seen literature given and literature also reviewed with patient's . She is reportedly healthcare proxy and this could become a consideration. For now patient showing some improvement. Monitor for hypotension Abilify encourage fluids. 11/28/21. Continue Abilify trial. 11/30/21: Increase Abilify to 10 mg daily Decrease Risperdal to 0.5 mg daily Increase Sertraline to 125 mg daily 12/01/21 continue current regimen for now 12/02/21 Continue current regimen for now Primary team to assess organic workup. TSH Wnl Patient the was expressed some history for what sounds like hypomanic episodes and may be experiencing bipolar depression. 12/03/21 Pt agrees to couples meeting on 12/04. Continue current regime. Discuss further changes 12/04 with the couple. 12/04/21 Increase Abilify to 20 mg. Provigil 100 mg a.m. Discontinue Risperdal Decrease Lorazepam to 0.25 mg tid Continue Sertraline, Trileptal, Trazodone 12/05/21 Continue current plan 12/06/21 Continue current plan 12/07/21 Some improvement noted Increase Sertraline to 150 mg daily 12/08/21 No change to current plan 12/09/21 No change to treatmen plan 12/11: continue current treatment. brighter affect, monosyllabic for most part, more visible. no si/hi. I spent minutes with the patient and/or on the patient floor today, greater than?50% of which was spent counseling/coordinating care. Reason for contiued inpatient stay Substantial Risk for: inability to function
[2021-12-11 18:00] VITALS: BP 138/78; PULSE 58; TEMP 35.7; O2SAT 97
[2021-12-11] MEDS: Sertraline HCL 50 MG TABLET 150 MG PO (21:34)
[2021-12-11] MEDS: Enoxaparin Sodium 40 MG/0.4 ML SYRINGE SUBCUT (21:39)
[2021-12-12 06:00] VITALS: BP 130/65; PULSE 54; TEMP 37.1; O2SAT 98
[2021-12-12] MEDS: Omeprazole 40 MG CAPSULE.DR PO (06:35)
[2021-12-12] MEDS: ARIPiprazole 20 MG TABLET PO (08:44)
[2021-12-12] MEDS: modafiniL 100 MG TABLET PO (08:44)
[2021-12-12] MEDS: OXcarbazepine 300 MG TABLET PO ×2 (08:44→22:42)
[2021-12-12] MEDS: Sucralfate 1 GM TABLET PO ×3 (08:44→22:42)
[2021-12-12] MEDS: LORazepam 0.5 MG TABLET 0.25 MG PO ×2 (08:44→14:11)
--- NOTE | 2021-12-12 12:31 | HO.PSYCHPN ---
Subjective Subjective Date of Service: 12/12/21 Reason For Visit: unspecified bipolar and related d/o Subjective Notes: Section 7 Interim History: Pt overall has improved hygiene, more visible, mostly monosyllabic, does report improvement in mood but difficult to explain in what way. Pt reports sleeping and eating well. He denies SI/HI. He reports less difficulty making decisions- earlier during admission pt struggled even with deciding if he should sign consent for [facility] or not. 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 He does note other people's concerns. He denies dizziness- some concern with ortho hotn, He denies SI/HI. Review of Systems Review of Systems Yes all other systems are reviewed and are negative Constitutional: Reports weakness Reports vertigo and Reports dizziness Cardiovascular: Reports syncope Gastrointestinal: Reports dyspepsia and Reports heartburn Reports behavioral changes, Reports confusion, Reports vertigo, Reports dizziness, Reports syncope, Reports memory loss and Reports weakness Psychiatric: Reports no additional psychiatric complaints, Reports abnormal sleep pattern, Reports anxiety, Reports behavioral changes, Reports change in appetite, Reports confusion, Reports depression, Reports difficulty concentrating, Reports auditory hallucinations (denies), Reports hopelessness, Reports irritability, Reports anhedonia, Reports memory loss, Reports mood swings, Reports panic attacks and Reports paranoia Mental Status Exam Mental Status Exam Narrative: Patient Appearance:?Unkempt Patient Orientation:?Person, Place, Time and Situation Level of Consciousness:?Alert Patient Behavior:?passive, cooperative Mood Description:? ok for now_ Affect Description:?slightly brighter Patient Cognition Impaired:?No Ability to Follow Directions:?Good Speech Pattern:?spontaneous Memory Description:?Episodic Impaired Hallucinations:?None Delusions:?Not Present Thought Process:?goal oriented Thought Content:Denies SI or HI Depressive Symptoms:?Diff. Making Decisions, Sleeping More Than Usual, Loss of Int. in Activity, Feelings of Worthlessness, Hopelessness, Isolating-Friends/Family, Unhappiness, Increased Fatigue, Thoughts of /Suicide (denies active intent), Low Self Esteem, Loss of Energy and Difficulty Concentrating Judgment/insight: Impaired Diagnostics Vital Signs (24Hr): Vital Signs - 24 hr 12/11/21 18:00 12/12/21 06:00 Temperature 96.3 F L 98.8 F Pulse Rate 58 54 Blood Pressure 138/78 130/65 Pulse Oximetry 97 98 BMI result Body Mass Index 29.1 Labs Results: 11/19/21 13:21 11/22/21 07:54 Imaging Radiology Impressions: ITS Impressions Foot X-Ray 11/08/21 17:32 IMPRESSION: Tiny Achilles heel spur. Otherwise unremarkable appearance of the left foot. Cervical Spine X-Ray 11/22/21 14:50 IMPRESSION: No fracture or malalignment. Mild degenerative changes. Forearm X-Ray 11/22/21 14:50 IMPRESSION: No acute fractures or malalignment within the imaged left upper extremity. Hip X-Ray 11/22/21 14:50 IMPRESSION: No acute fractures or malalignment. Humerus X-Ray 11/22/21 14:50 IMPRESSION: No acute fractures or malalignment within the imaged left upper extremity. Shoulder X-Ray 11/22/21 14:50 IMPRESSION: No acute fractures or malalignment within the imaged left upper extremity. Medications Medications Current Medications Acetaminophen (Acetaminophen 325 Mg Tablet) 650 mg PO Q6H PRN PRN Reason: Headache/Pain Mild Scale (1-3) Al Hydroxide/Mg Hydroxide (Magnesium Hydrox/Alum Hydrox 30 Ml Oral.Susp) 30 ml PO Q6H PRN PRN Reason: Heartburn/Nausea Aripiprazole (Aripiprazole 20 Mg Tablet) 20 mg PO DAILY [facility] Last Admin: 12/12/21 08:44 Dose: 20 mg Documented by: Enoxaparin Sodium (Enoxaparin Sodium 40 Mg/0.4 Ml Syringe) 40 mg SUBCUT 2100 [facility] Last Admin: 12/11/21 21:39 Dose: 40 mg Documented by: Hydroxyzine HCl (Hydroxyzine Hcl 25 Mg Tablet) 25 mg PO Q6H PRN PRN Reason: Anxiety Last Admin: 11/17/21 15:11 Dose: 25 mg Documented by: Lidocaine (Lidocaine 4 % Patch Adh..Patch) 1 patch TRANSDERMA DAILY [facility]; Protocol Last Admin: 12/12/21 08:47 Dose: Not Given Documented by: Loperamide HCl (Loperamide Hcl 2 Mg Capsule) 2 mg PO Q6H PRN PRN Reason: Diarrhea Last Admin: 11/17/21 13:40 Dose: 2 mg Documented by: Lorazepam (Lorazepam 0.5 Mg Tablet) 0.25 mg PO TID [facility] Last Admin: 12/12/21 14:11 Dose: 0.25 mg Documented by: Magnesium Hydroxide (Milk Of Magnesia 30 Ml Oral.Susp) 30 ml PO DAILY PRN PRN Reason: Constipation Modafinil (Modafinil 100 Mg Tablet) 100 mg PO DAILY [facility] Last Admin: 12/12/21 08:44 Dose: 100 mg Documented by: Omeprazole (Omeprazole 40 Mg Capsule.Dr) 40 mg PO DAILY@0630 [facility] Last Admin: 12/12/21 06:35 Dose: 40 mg Documented by: Oxcarbazepine (Oxcarbazepine 300 Mg Tablet) 300 mg PO BID [facility] Last Admin: 12/12/21 08:44 Dose: 300 mg Documented by: Sertraline HCl (Sertraline Hcl 50 Mg Tablet) 150 mg PO BEDTIME [facility] Last Admin: 12/11/21 21:34 Dose: 150 mg Documented by: Sucralfate (Sucralfate 1 Gm Tablet) 1 gm PO TID [facility] Last Admin: 12/12/21 14:11 Dose: 1 gm Documented by: Trazodone HCl (Trazodone Hcl 50 Mg Tablet) 50 mg PO BEDTIME PRN PRN Reason: Insomnia Allergies Allergies Allergy/AdvReac Type Severity Reaction Status Date / Time No Known Allergies Allergy Unverified 11/07/21 21:23 Assessment & Plan Assessment & Plan (1) MDD (major depressive disorder), recurrent, severe, with psychosis: Status: Acute Code(s): F33.3 - Major depressive disorder, recurrent, severe with psychotic symptoms Plan Patient seen chart reviewed case reviewed with Miranda Guzman nurse practitioner and his . The patient has experienced a number of perceived losses over the past year including his old this son going to [place] to boarding school selling their sailboat which had been a major feature in his life. Patient typically can be somewhat sentimental has a difficult time with transitions to some degree but no significant psychiatric history parted approximately 2-3 months ago. The patient was somewhat obsessional anxious depressed but there was some reported response to prior antidepressant trial as an outpatient. The patient had a severe exacerbation of symptoms great fear anxiety and somatic fears after he was treated surgically and developed an infection. The patient has a difficult time expressing his feelings but his cognitive dulling periods of irrational thinking poverty of content severe withdrawal cognitive dulling often being bed ridden are most consistent with major depression with psychotic features 11/09: Will start start sertraline 50 mg QHS to target sx of OCD with poor insight, depression. Will re-start ativan 1 mg Q6H PRN, as reports this was helpful for pt and he became more responsive on ativan. 11/10: Continue sertraline 50 mg and monitor for benefit. Lovenox started per recommendation of hospitalist for DVT prevention, as pt is immobile, despondent lying down in bed. 11/11: reviewed EKG. WIll increase sertraline to 75 mg and monitor for benefit. 11/13/21: Increase Olanzapine to 7.5 mg HS. Today pt with dysphoria, treatment resistence. Work on alliance and engaging pt in his plan of care. 11/14/21: Continue current regime. 11/15/21: Increase Olanzapine to 10 mg HS. Continue to work on alliance. 11/16/21 Continue treatment plan 11/17/21 Continue treatment plan 11/18/21 continue treatment plan encourage prn atarax for anxiety 11/19/21: Regime not effective. Pt agrees to changes 1. Discontinue Olanzapine. 2. Risperdal 1.5 mg HS- for clarity of thought 3. Ativan 0.5 mg tid-for mgt of anxiety 4. Trileptal 150 mg bid- mood stabilization. Monitor response to medications. Monitor for safety in the milieu. Discharge on stabilization. Patient seen. Chart reviewed. Discussed with team. Obtain collateral contact info?as needed 11/21/21: Continue current regime-no medication changes today. Observe 11/22/21: Increase Trileptal to 300 mg bid 11/23/21: Continue current regime ECT consultation 11/24- no medication changes 11/25 continue current medications. 11/26/21: Pt considering signing a conditional voluntary Pt agrees to consult with Dr. Inman for ECT consideration. Increase Sertraline to 100 mg daily Continue to explore with Gerry possible psychosocial circumstances leading to increase in symptoms. 11/27/2021 Patient's diagnosis seems most consistent with major depression with psychotic features. Which trying get confirmation of brain MRI given patient's marked change in behavior and severe depressive symptoms periods of irrational thinking and melancholic symptoms of fatigue lethargy cognitive dulling marked decreased appetite. Would make sure no metabolic reasons for the above otherwise would aggressively treat for psychotic depression. Increase antidepressant trial as tolerated agree with lorazepam for pre catatonic like symptoms and would try Abilify for psychotic depression. If above not effective would consider ECT. Patient was unable to take information regarding ECT when seen literature given and literature also reviewed with patient's . She is reportedly healthcare proxy and this could become a consideration. For now patient showing some improvement. Monitor for hypotension Abilify encourage fluids. 11/28/21. Continue Abilify trial. 11/30/21: Increase Abilify to 10 mg daily Decrease Risperdal to 0.5 mg daily Increase Sertraline to 125 mg daily 12/01/21 continue current regimen for now 12/02/21 Continue current regimen for now Primary team to assess organic workup. TSH Wnl Patient the was expressed some history for what sounds like hypomanic episodes and may be experiencing bipolar depression. 12/03/21 Pt agrees to couples meeting on 12/04. Continue current regime. Discuss further changes 12/04 with the couple. 12/04/21 Increase Abilify to 20 mg. Provigil 100 mg a.m. Discontinue Risperdal Decrease Lorazepam to 0.25 mg tid Continue Sertraline, Trileptal, Trazodone 12/05/21 Continue current plan 12/06/21 Continue current plan 12/07/21 Some improvement noted Increase Sertraline to 150 mg daily 12/08/21 No change to current plan 12/09/21 No change to treatmen plan 12/11: continue current treatment. brighter affect, monosyllabic for most part, more visible. no si/hi. 12/12: continue same medications- consider reviewing head image to see any sign of fronto/ temporal atrophy, which may be causing symptoms of apathy, decline in functioning (executive function/difficulty initiating activities), consider neuropsych testing(outpatient) as MOCA may not be most reflective of decline as he was at baseline more high functioning individual. I spent minutes with the patient and/or on the patient floor today, greater than?50% of which was spent counseling/coordinating care. Reason for contiued inpatient stay Substantial Risk for: inability to function
[2021-12-12 18:00] VITALS: BP 157/80; PULSE 62; RESP 18; TEMP 36.3; O2SAT 97
[2021-12-12 22:00] VITALS: BP 157/80; PULSE 62
[2021-12-12] MEDS: Enoxaparin Sodium 40 MG/0.4 ML SYRINGE SUBCUT (22:42)
[2021-12-12] MEDS: Sertraline HCL 50 MG TABLET 150 MG PO (22:42)
[2021-12-13 06:00] VITALS: BP 130/68; PULSE 62; TEMP 36.6; O2SAT 97
[2021-12-13] MEDS: Sucralfate 1 GM TABLET PO (09:34)
[2021-12-13] MEDS: OXcarbazepine 300 MG TABLET PO ×2 (09:34→21:03)
[2021-12-13] MEDS: modafiniL 100 MG TABLET PO (09:34)
[2021-12-13] MEDS: Omeprazole 40 MG CAPSULE.DR PO (09:34)
[2021-12-13] MEDS: ARIPiprazole 20 MG TABLET PO (09:34)
[2021-12-13 18:00] VITALS: BP 125/69; PULSE 68; RESP 16; TEMP 36.2; O2SAT 99
--- NOTE | 2021-12-13 18:21 | P.PNPSI_ITS ---
Subjective Subjective Date of Service: 12/13/21 Reason For Visit: unspecified bipolar and related d/o Subjective Notes: Section 7 Interim History: Review of Provigil trial. Mixed reports-pt reports no real change-team report pt is more alert, engaged, attentive. Discussed with pt dosage increase. He agrees to trial. Continued discussion of neuro psych testing, getting MRI results, beginning diagnostics for rule out of dementia (covering provider who met with pt this weeks suggests a possible frontaltemporal dementia). Pt with coarsening of habits, social behavior, personality, without obvious loss of fluency, comprehension, no disorientation, reports memory impairment and with self- neglect and abandonment of work activities and family/social contacts, com pulsiveness, no puerile sx, however with disconcerting laugh at times. Medication Compliance: Yes Side effects from medications: No Attending Groups: No Review of Systems Acute medical concerns: No Medical Review of Systems: unchanged Review of Systems Review of Systems Yes all other systems are reviewed and are negative Constitutional: Reports weakness Reports vertigo and Reports dizziness Cardiovascular: Reports syncope Gastrointestinal: Reports dyspepsia and Reports heartburn Reports behavioral changes, Reports confusion, Reports vertigo, Reports dizziness, Reports syncope, Reports memory loss and Reports weakness Psychiatric: Reports no additional psychiatric complaints, Reports abnormal sleep pattern, Reports anxiety, Reports behavioral changes, Reports change in appetite, Reports confusion, Reports depression, Reports difficulty concentrating, Reports auditory hallucinations (denies), Reports hopelessness, Reports irritability, Reports anhedonia, Reports memory loss, Reports mood swings, Reports panic attacks and Reports paranoia Mental Status Exam Mental Status Exam Narrative: Patient Appearance:?Unkempt Patient Orientation:?Person, Place, Time and Situation Level of Consciousness:?Alert Patient Behavior:?passive, cooperative Mood Description:? ok for now_ Affect Description:?slightly brighter Patient Cognition Impaired:?No Ability to Follow Directions:?Good Speech Pattern:?spontaneous Memory Description:?Episodic Impaired Hallucinations:?None Delusions:?Not Present Thought Process:?goal oriented Thought Content:Denies SI or HI Depressive Symptoms:?Diff. Making Decisions, Sleeping More Than Usual, Loss of Int. in Activity, Feelings of Worthlessness, Hopelessness, Isolating- Friends/Family, Unhappiness, Increased Fatigue, Thoughts of /Suicide (denies active intent), Low Self Esteem, Loss of Energy and Difficulty Concentrating Judgment/insight: Impaired Diagnostics Vital Signs (24Hr): Vital Signs - 24 hr 12/12/21 22:00 12/13/21 06:00 Temperature 98 F Pulse Rate 62 62 Blood Pressure 157/80 H 130/68 Pulse Oximetry 97 BMI result [place] 4 Body Mass Index [place] 4 29.1 [place] 4 [place] 4 Labs Results: 12/14/21 08:22 12/14/21 08:23 Imaging Radiology Impressions: ITS Impressions Foot X-Ray 11/08/21 17:32 IMPRESSION: Tiny Achilles heel spur. Otherwise unremarkable appearance of the left foot. Cervical Spine X-Ray 11/22/21 14:50 IMPRESSION: No fracture or malalignment. Mild degenerative changes. Forearm X-Ray 11/22/21 14:50 IMPRESSION: No acute fractures or malalignment within the imaged left upper extremity. Hip X-Ray 11/22/21 14:50 IMPRESSION: No acute fractures or malalignment. Humerus X-Ray 11/22/21 14:50 IMPRESSION: No acute fractures or malalignment within the imaged left upper extremity. Shoulder X-Ray 11/22/21 14:50 IMPRESSION: No acute fractures or malalignment within the imaged left upper extremity. Medications Medications Current Medications Acetaminophen (Acetaminophen 325 Mg Tablet) 650 mg PO Q6H PRN PRN Reason: Headache/Pain Mild Scale (1-3) Al Hydroxide/Mg Hydroxide (Magnesium Hydrox/Alum Hydrox 30 Ml Oral.Susp) 30 ml PO Q6H PRN PRN Reason: Heartburn/Nausea Aripiprazole (Aripiprazole 20 Mg Tablet) 20 mg PO DAILY [facility] Last Admin: 12/13/21 09:34 Dose: 20 mg Documented by: Enoxaparin Sodium (Enoxaparin Sodium 40 Mg/0.4 Ml Syringe) 40 mg SUBCUT 2100 [facility] Last Admin: 12/12/21 22:42 Dose: 40 mg Documented by: Hydroxyzine HCl (Hydroxyzine Hcl 25 Mg Tablet) 25 mg PO Q6H PRN PRN Reason: Anxiety Last Admin: 11/17/21 15:11 Dose: 25 mg Documented by: Lidocaine (Lidocaine 4 % Patch Adh..Patch) 1 patch TRANSDERMA DAILY [facility]; Protocol Last Admin: 12/13/21 09:38 Dose: Not Given Documented by: Loperamide HCl (Loperamide Hcl 2 Mg Capsule) 2 mg PO Q6H PRN PRN Reason: Diarrhea Last Admin: 11/17/21 13:40 Dose: 2 mg Documented by: Magnesium Hydroxide (Milk Of Magnesia 30 Ml Oral.Susp) 30 ml PO DAILY PRN PRN Reason: Constipation Modafinil (Modafinil 100 Mg Tablet) 100 mg PO DAILY [facility] Last Admin: 12/13/21 09:34 Dose: 100 mg Documented by: Omeprazole (Omeprazole 40 Mg Capsule.Dr) 40 mg PO DAILY@0630 [facility] Last Admin: 12/13/21 09:34 Dose: 40 mg Documented by: Oxcarbazepine (Oxcarbazepine 300 Mg Tablet) 300 mg PO BID [facility] Last Admin: 12/13/21 09:34 Dose: 300 mg Documented by: Sertraline HCl (Sertraline Hcl 50 Mg Tablet) 150 mg PO BEDTIME [facility] Last Admin: 12/12/21 22:42 Dose: 150 mg Documented by: Sucralfate (Sucralfate 1 Gm Tablet) 1 gm PO TID [facility] Last Admin: 12/13/21 17:18 Dose: Not Given Documented by: Trazodone HCl (Trazodone Hcl 50 Mg Tablet) 50 mg PO BEDTIME PRN PRN Reason: Insomnia Allergies Allergies Allergy/AdvReac Type Severity Reaction Status Date / Time No Known Allergies Allergy Unverified 11/07/21 21:23 Assessment & Plan Assessment & Plan (1) MDD (major depressive disorder), recurrent, severe, with psychosis: Status: Acute Code(s): F33.3 - Major depressive disorder, recurrent, severe with psychotic symptoms Plan Patient seen chart reviewed case reviewed with Miranda Guzman nurse practitioner and his . The patient has experienced a number of perceived losses over the past year including his old this son going to [place] to [employer] selling their sailboat which had been a major feature in his life. Patient typically can be somewhat sentimental has a difficult time with transitions to some degree but no significant psychiatric history parted approximately 2-3 months ago. The patient was somewhat obsessional anxious depressed but there was some reported response to prior antidepressant trial as an outpatient. The patient had a severe exacerbation of symptoms great fear anxiety and somatic fears after he was treated surgically and developed an infection. The patient has a difficult time expressing his feelings but his cognitive dulling periods of irrational th inking poverty of content severe withdrawal cognitive dulling often being bed ridden are most consistent with major depression with psychotic features 11/09: Will start start sertraline 50 mg QHS to target sx of OCD with poor insight, depression. Will re-start ativan 1 mg Q6H PRN, as reports this was helpful for pt and he became more responsive on ativan. 11/10: Continue sertraline 50 mg and monitor for benefit. Lovenox started per recommendation of hospitalist for DVT prevention, as pt is immobile, despondent lying down in bed. 11/11: reviewed EKG. WIll increase sertraline to 75 mg and monitor for benefit. 11/13/21: Increase Olanzapine to 7.5 mg HS. Today pt with dysphoria, treatment resistence. Work on alliance and engaging pt in his plan of care. 11/14/21: Continue current regime. 11/15/21: Increase Olanzapine to 10 mg HS. Continue to work on alliance. 11/16/21 Continue treatment plan 11/17/21 Continue treatment plan 11/18/21 continue treatment plan encourage prn atarax for anxiety 11/19/21: Regime not effective. Pt agrees to changes 1. Discontinue Olanzapine. 2. Risperdal 1.5 mg HS- for clarity of thought 3. Ativan 0.5 mg tid-for mgt of anxiety 4. Trileptal 150 mg bid- mood stabilization. Monitor response to medications. Monitor for safety in the milieu. Discharge on stabilization. Patient seen. Chart reviewed. Discussed with team. Obtain collateral contact info?as needed 11/21/21: Continue current regime-no medication changes today. Observe 11/22/21: Increase Trileptal to 300 mg bid 11/23/21: Continue current regime ECT consultation 11/24- no medication changes 11/25 continue current medications. 11/26/21: Pt considering signing a conditional voluntary Pt agrees to consult with Dr. Inman for ECT consideration. Increase Sertraline to 100 mg daily Continue to explore with Gerry possible psychosocial circumstances leading to increase in symptoms. 11/27/2021 Patient's diagnosis seems most consistent with major depression with psychotic features. Which trying get confirmation of brain MRI given patient's marked change in behavior and severe depressive symptoms periods of irrational thinking and melancholic symptoms of fatigue lethargy cognitive dulling marked decreased appetite. Would make sure no metabolic reasons for the above otherwise would aggressively treat for psychotic depression. Increase antidepressant trial as tolerated agree with lorazepam for pre catatonic like symptoms and would try Abilify for psychotic depression. If above not effective would consider ECT. Patient was unable to take information regarding ECT when seen literature given and literature also reviewed with patient's . She is reportedly healthcare proxy and this could become a consideration. For now patient showing some improvement. Monitor for hypotension Abilify encourage fluids. 11/28/21. Continue Abilify trial. 11/30/21: Increase Abilify to 10 mg daily Decrease Risperdal to 0.5 mg daily Increase Sertraline to 125 mg daily 12/01/21 continue current regimen for now 12/02/21 Continue current regimen for now Primary team to assess organic workup. TSH Wnl Patient the was expressed some history for what sounds like hypomanic episodes and may be experiencing bipolar depression. 12/03/21 Pt agrees to couples meeting on 12/04. Continue current regime. Discuss further changes 12/04 with the couple. 12/04/21 Increase Abilify to 20 mg. Provigil 100 mg a.m. Discontinue Risperdal Decrease Lorazepam to 0.25 mg tid Continue Sertraline, Trileptal, Trazodone 12/05/21 Continue current plan 12/06/21 Continue current plan 12/07/21 Some improvement noted Increase Sertraline to 150 mg daily 12/08/21 No change to current plan 12/09/21 No change to treatmen plan 12/11: continue current treatment. brighter affect, monosyllabic for most part, more visible. no si/hi. 12/12: continue same medications- consider reviewing head image to see any sign of fronto/ temporal atrophy, which may be causing symptoms of apathy, decline in functioning (executive function/difficulty initiating activities), consider neuropsych testing(outpatient) as MOCA may not be most reflective of decline as he was at baseline more high functioning individual. 12/13/21: Increase Provigil to 200 mg daily. Labs Pt considering [facility] for MRI 10/07 completed and NPT. I spent 30 minutes with the patient and/or on the patient floor today, greater than?50% of which was spent counseling/coordinating care. Patient educated on: diagnosis, medication risk/benefits and therapeutic strategies Informed Consent: further education needed Reason for contiued inpatient stay Substantial Risk for: inability to function, rapid decompensation and med/psych decompensation
[2021-12-13] MEDS: Sertraline HCL 50 MG TABLET 150 MG PO (21:03)
[2021-12-13] MEDS: Enoxaparin Sodium 40 MG/0.4 ML SYRINGE SUBCUT (21:03)
[2021-12-14 06:00] VITALS: BP 132/71; PULSE 61; TEMP 36.6; O2SAT 96
[2021-12-14] MEDS: Omeprazole 40 MG CAPSULE.DR PO (06:37)
[2021-12-14] MEDS: ARIPiprazole 20 MG TABLET PO (08:35)
[2021-12-14] MEDS: modafiniL 100 MG TABLET 200 MG PO (08:36)
[2021-12-14] MEDS: Sucralfate 1 GM TABLET PO ×3 (08:36→20:47)
[2021-12-14 08:51] LABS: MANUAL DIFF FLAG NO
[2021-12-14 08:55] LABS: Basophils Percent Auto 0.6 % (0-2); Eosinophils Absolute Auto 0.1 X10*3/uL (0.0-0.4); Eosinophils Percent Auto 2.6 % (0-4); Hematocrit 37.2 % (42.0-52.0); Hemoglobin 12.5 g/dl (14.0-18.0); Imm Gran Abs Auto 0.02 X10*3/uL (0.00-0.03); Imm Gran Pct Auto 0.4 % (0.0-0.4); Lymphocytes Absolute Auto 0.8 X10*3/uL (1.2-4.9); Lymphocytes Percent Auto 15.1 % (20-40); Mean Corpuscular HGB Conc 33.6 g/dl (31.0-36.0); Mean Corpuscular Hemoglobin 29.3 pg (27.0-33.0); Mean Corpuscular Volume 87.1 fL (80.0-98.0); Mean Platelet Volume 8.6 fL (9.4-12.4); Monocytes Absolute Auto 0.4 X10*3/uL (0.1-1.2); Monocytes Percent Auto 7.6 % (2-11); Neutrophils Percent Auto 73.7 % (45-73); Platelet Count 223 X10*3/uL (160-400); Red Blood Count 4.27 X10*6/uL (4.60-5.80); Red Cell Distribution Width 14.6 % (11.0-16.0); White Blood Count 5.4 X10*3/uL (4.8-10.8)
[2021-12-14] MEDS: OXcarbazepine 300 MG TABLET PO ×2 (08:57→20:47)
[2021-12-14 09:34] LABS: Alanine Aminotransferase 21 U/L (0-40); Albumin Level 3.8 g/dL (3.5-5.0); Alkaline Phosphatase 74 U/L (39-117); Anion Gap 12 (12-20); Aspartate Amino Transferase 13 U/L (5-37); Bilirubin Total 0.4 mg/dL (0.0-1.0); Blood Urea Nitrogen 12 mg/dL (9-16); Calcium 9.2 mg/dL (8.4-10.2); Carbon Dioxide 29 mmol/L (22-29); Chloride 101 mmol/L (96-108); Creatinine Clr Calc Pharmacy 104.9; Estimated Glomerular Filt Rate > 60; Glucose Random 93 mg/dL (60-115); Potassium 4.5 mmol/L (3.3-5.1); Sodium 137 mmol/L (135-145); Total Protein 5.9 g/dL (6.5-8.0)
[2021-12-14 09:51] LABS: Folate 7.6 ng/mL (> or = 4.0); Vitamin B12 377 pg/mL (200-900)
--- NOTE | 2021-12-14 16:19 | HO.PSYCHPN ---
Subjective Subjective Date of Service: 12/14/21 Reason For Visit: unspecified bipolar and related d/o Subjective Notes: Section 7 Interim History: Met with pt and Zander KIM. Review of labs. Sl anemia-pt agrees to begin low dose iron supplement. Discussed titration of Sertraline, pt agrees. Pt concern about constipation-will begin Metamucil. Discussed continuing neuro eval- pt will consider. Will allow further labs-will order TRENT, CRP, RPR, ESR, HIV-pt interested in testosterone level. Pt discussed having COVID, ~ Oct 2020 and never really recovering . Continues to consider allowing access to MRI results-some paranoia around consent process-education attempted. Medication Compliance: Yes Side effects from medications: No Attending Groups: No Review of Systems Acute medical concerns: No Medical Review of Systems: unchanged Review of Systems Reports memory loss Psychiatric: Reports anxiety, Reports depression, Reports difficulty concentrating, Reports hopelessness, Reports anhedonia, Reports memory loss, Reports paranoia and Reports suicidal ideation (denies) Diagnostics Vital Signs (24Hr): Vital Signs - 24 hr 12/13/21 18:00 12/14/21 06:00 Temperature 97.2 F 98 F Pulse Rate 68 61 Respiratory Rate 16 Blood Pressure 125/69 132/71 Pulse Oximetry 99 96 BMI result Body Mass Index 29.1 Labs Results: 12/14/21 08:22 12/14/21 08:23 Labs: Laboratory Results - last 48 hr 12/14/21 12/14/21 12/14/21 08:22 08:22 08:23 WBC 5.4 RBC 4.27 L Hgb 12.5 L Hct 37.2 L MCV 87.1 MCH 29.3 MCHC 33.6 RDW 14.6 Plt Count 223 MPV 8.6 L Immature Gran % (Auto) 0.4 Neut % (Auto) 73.7 H Lymph % (Auto) 15.1 L [place] % (Auto) 7.6 Eos % (Auto) 2.6 Baso % (Auto) 0.6 Lymph # (Auto) 0.8 L [place] # (Auto) 0.4 Eos # (Auto) 0.1 Baso # (Auto) 0.0 Abs Immat Gran (auto) 0.02 Absolute Neuts (auto) 4.0 Absolute Nucleated RBC 0.000 Nucleated RBC % (auto) 0.0 Sodium 137 Potassium 4.5 D Chloride 101 Carbon Dioxide 29 Anion Gap 12 BUN 12 Creatinine 0.94 Estim Creat Clear Calc 104.9 Estimated GFR > 60 Random Glucose 93 Calcium 9.2 Total Bilirubin 0.4 AST 13 ALT 21 Alkaline Phosphatase 74 D Total Protein 5.9 L Albumin 3.8 Vitamin B12 377 Folate 7.6 TSH 1.80 Imaging Radiology Impressions: ITS Impressions Foot X-Ray 11/08/21 17:32 IMPRESSION: Tiny Achilles heel spur. Otherwise unremarkable appearance of the left foot. Cervical Spine X-Ray 11/22/21 14:50 IMPRESSION: No fracture or malalignment. Mild degenerative changes. Forearm X-Ray 11/22/21 14:50 IMPRESSION: No acute fractures or malalignment within the imaged left upper extremity. Hip X-Ray 11/22/21 14:50 IMPRESSION: No acute fractures or malalignment. Humerus X-Ray 11/22/21 14:50 IMPRESSION: No acute fractures or malalignment within the imaged left upper extremity. Shoulder X-Ray 11/22/21 14:50 IMPRESSION: No acute fractures or malalignment within the imaged left upper extremity. Medications Medications Current Medications Acetaminophen (Acetaminophen 325 Mg Tablet) 650 mg PO Q6H PRN PRN Reason: Headache/Pain Mild Scale (1-3) Al Hydroxide/Mg Hydroxide (Magnesium Hydrox/Alum Hydrox 30 Ml Oral.Susp) 30 ml PO Q6H PRN PRN Reason: Heartburn/Nausea Aripiprazole (Aripiprazole 20 Mg Tablet) 20 mg PO DAILY [facility] Last Admin: 12/14/21 08:35 Dose: 20 mg Documented by: Enoxaparin Sodium (Enoxaparin Sodium 40 Mg/0.4 Ml Syringe) 40 mg SUBCUT 2100 [facility] Last Admin: 12/13/21 21:03 Dose: 40 mg Documented by: Ferrous Sulfate (Ferrous Sulfate 324 Mg Tablet.Dr) 324 mg PO BEDTIME [facility] Hydroxyzine HCl (Hydroxyzine Hcl 25 Mg Tablet) 25 mg PO Q6H PRN PRN Reason: Anxiety Last Admin: 11/17/21 15:11 Dose: 25 mg Documented by: Lidocaine (Lidocaine 4 % Patch Adh..Patch) 1 patch TRANSDERMA DAILY [facility]; Protocol Last Admin: 12/14/21 08:38 Dose: Not Given Documented by: Loperamide HCl (Loperamide Hcl 2 Mg Capsule) 2 mg PO Q6H PRN PRN Reason: Diarrhea Last Admin: 11/17/21 13:40 Dose: 2 mg Documented by: Magnesium Hydroxide (Milk Of Magnesia 30 Ml Oral.Susp) 30 ml PO DAILY PRN PRN Reason: Constipation Modafinil (Modafinil 100 Mg Tablet) 200 mg PO DAILY [facility] Last Admin: 12/14/21 08:36 Dose: 200 mg Documented by: Omeprazole (Omeprazole 40 Mg Capsule.Dr) 40 mg PO DAILY@0630 [facility] Last Admin: 12/14/21 06:37 Dose: 40 mg Documented by: Oxcarbazepine (Oxcarbazepine 300 Mg Tablet) 300 mg PO BID [facility] Last Admin: 12/14/21 08:57 Dose: 300 mg Documented by: Psyllium Hydrophilic Mucilloid (Psyllium Seed 3.4 Gm Powd.Pack) 3.4 gm PO BEDTIME [facility] Sertraline HCl (Sertraline Hcl 100 Mg Tablet) 200 mg PO BEDTIME [facility] Sucralfate (Sucralfate 1 Gm Tablet) 1 gm PO TID [facility] Last Admin: 12/14/21 14:17 Dose: 1 gm Documented by: Trazodone HCl (Trazodone Hcl 50 Mg Tablet) 50 mg PO BEDTIME PRN PRN Reason: Insomnia Allergies Allergies Allergy/AdvReac Type Severity Reaction Status Date / Time No Known Allergies Allergy Unverified 11/07/21 21:23 Assessment & Plan Assessment & Plan (1) MDD (major depressive disorder), recurrent, severe, with psychosis: Status: Acute Code(s): F33.3 - Major depressive disorder, recurrent, severe with psychotic symptoms Plan Patient seen chart reviewed case reviewed with Miranda Guzman nurse practitioner and his . The patient has experienced a number of perceived losses over the past year including his old this son going to [employer] to [employer] selling their sailboat which had been a major feature in his life. Patient typically can be somewhat sentimental has a difficult time with transitions to some degree but no significant psychiatric history parted approximately 2-3 months ago. The patient was somewhat obsessional anxious depressed but there was some reported response to prior antidepressant trial as an outpatient. The patient had a severe exacerbation of symptoms great fear anxiety and somatic fears after he was treated surgically and developed an infection. The patient has a difficult time expressing his feelings but his cognitive dulling periods of irrational thinking poverty of content severe withdrawal cognitive dulling often being bed ridden are most consistent with major depression with psychotic features 11/09: Will start start sertraline 50 mg QHS to target sx of OCD with poor insight, depression. Will re-start ativan 1 mg Q6H PRN, as reports this was helpful for pt and he became more responsive on ativan. 11/10: Continue sertraline 50 mg and monitor for benefit. Lovenox started per recommendation of hospitalist for DVT prevention, as pt is immobile, despondent lying down in bed. 11/11: reviewed EKG. WIll increase sertraline to 75 mg and monitor for benefit. 11/13/21: Increase Olanzapine to 7.5 mg HS. Today pt with dysphoria, treatment resistence. Work on alliance and engaging pt in his plan of care. 11/14/21: Continue current regime. 11/15/21: Increase Olanzapine to 10 mg HS. Continue to work on alliance. 11/16/21 Continue treatment plan 11/17/21 Continue treatment plan 11/18/21 continue treatment plan encourage prn atarax for anxiety 11/19/21: Regime not effective. Pt agrees to changes 1. Discontinue Olanzapine. 2. Risperdal 1.5 mg HS- for clarity of thought 3. Ativan 0.5 mg tid-for mgt of anxiety 4. Trileptal 150 mg bid- mood stabilization. Monitor response to medications. Monitor for safety in the milieu. Discharge on stabilization. Patient seen. Chart reviewed. Discussed with team. Obtain collateral contact info?as needed 11/21/21: Continue current regime-no medication changes today. Observe 11/22/21: Increase Trileptal to 300 mg bid 11/23/21: Continue current regime ECT consultation 11/24- no medication changes 11/25 continue current medications. 11/26/21: Pt considering signing a conditional voluntary Pt agrees to consult with Dr. Inman for ECT consideration. Increase Sertraline to 100 mg daily Continue to explore with Gerry possible psychosocial circumstances leading to increase in symptoms. 11/27/2021 Patient's diagnosis seems most consistent with major depression with psychotic features. Which trying get confirmation of brain MRI given patient's marked change in behavior and severe depressive symptoms periods of irrational thinking and melancholic symptoms of fatigue lethargy cognitive dulling marked decreased appetite. Would make sure no metabolic reasons for the above otherwise would aggressively treat for psychotic depression. Increase antidepressant trial as tolerated agree with lorazepam for pre catatonic like symptoms and would try Abilify for psychotic depression. If above not effective would consider ECT. Patient was unable to take information regarding ECT when seen literature given and literature also reviewed with patient's . She is reportedly healthcare proxy and this could become a consideration. For now patient showing some improvement. Monitor for hypotension Abilify encourage fluids. 11/28/21. Continue Abilify trial. 11/30/21: Increase Abilify to 10 mg daily Decrease Risperdal to 0.5 mg daily Increase Sertraline to 125 mg daily 12/01/21 continue current regimen for now 12/02/21 Continue current regimen for now Primary team to assess organic workup. TSH Wnl Patient the was expressed some history for what sounds like hypomanic episodes and may be experiencing bipolar depression. 12/03/21 Pt agrees to couples meeting on 12/04. Continue current regime. Discuss further changes 12/04 with the couple. 12/04/21 Increase Abilify to 20 mg. Provigil 100 mg a.m. Discontinue Risperdal Decrease Lorazepam to 0.25 mg tid Continue Sertraline, Trileptal, Trazodone 12/05/21 Continue current plan 12/06/21 Continue current plan 12/07/21 Some improvement noted Increase Sertraline to 150 mg daily 12/08/21 No change to current plan 12/09/21 No change to treatmen plan 12/11: continue current treatment. brighter affect, monosyllabic for most part, more visible. no si/hi. 12/12: continue same medications- consider reviewing head image to see any sign of fronto/ temporal atrophy, which may be causing symptoms of apathy, decline in functioning (executive function/difficulty initiating activities), consider neuropsych testing(outpatient) as MOCA may not be most reflective of decline as he was at baseline more high functioning individual. 12/14/21: Ferrous Sulfate 324 mg daily Begin Metamucil regime Increase Sertraline to 200 mg hs TRENT, CRP, RPR, Testosterone, ESR, HIV Pt considering neuro psych testing and allowing access to MRI results. I spent 45 minutes with the patient and/or on the patient floor today, greater than?50% of which was spent counseling/coordinating care. Patient educated on: medication risk/benefits and therapeutic strategies Informed Consent: further education needed Reason for contiued inpatient stay Substantial Risk for: inability to function, rapid decompensation and med/psych decompensation
[2021-12-14 18:00] VITALS: BP 140/75; PULSE 80
[2021-12-14] MEDS: Enoxaparin Sodium 40 MG/0.4 ML SYRINGE SUBCUT (20:46)
[2021-12-14] MEDS: Sertraline HCL 100 MG TABLET 200 MG PO (20:47)
[2021-12-14] MEDS: Ferrous Sulfate 324 MG TABLET.DR PO (20:47)
[2021-12-15 06:00] VITALS: BP 164/84; PULSE 69; RESP 18; TEMP 36.8; O2SAT 97
[2021-12-15] MEDS: Omeprazole 40 MG CAPSULE.DR PO (06:14)
[2021-12-15] MEDS: ARIPiprazole 20 MG TABLET PO (09:03)
[2021-12-15] MEDS: OXcarbazepine 300 MG TABLET PO ×2 (09:03→21:31)
[2021-12-15] MEDS: Sucralfate 1 GM TABLET PO ×3 (09:03→22:01)
[2021-12-15] MEDS: modafiniL 100 MG TABLET 200 MG PO (09:03)
[2021-12-15 18:00] VITALS: BP 138/78; PULSE 74; TEMP 36.4; O2SAT 98
[2021-12-15] MEDS: Sertraline HCL 100 MG TABLET 200 MG PO (21:31)
[2021-12-15] MEDS: Ferrous Sulfate 324 MG TABLET.DR PO (21:31)
[2021-12-15] MEDS: Enoxaparin Sodium 40 MG/0.4 ML SYRINGE SUBCUT (22:00)
--- NOTE | 2021-12-15 23:54 | P.PNPSI_ITS ---
Subjective Subjective Date of Service: 12/15/21 Reason For Visit: unspecified bipolar and related d/o Interim History: Patient seen. He is guarded and paranoid. He gives vague answers about how he's feeling and if medications are helpful. He has an intense stare. He denies SI. Taking medications. Reviewed ordered labs. All non-revealing. Review of Systems Review of Systems Yes all other systems are reviewed and are negative Constitutional: Reports weakness Reports vertigo and Reports dizziness Cardiovascular: Reports syncope Gastrointestinal: Reports dyspepsia and Reports heartburn Reports behavioral changes, Reports confusion, Reports vertigo, Reports dizziness, Reports syncope, Reports memory loss and Reports weakness Psychiatric: Reports no additional psychiatric complaints, Reports abnormal sleep pattern, Reports anxiety, Reports behavioral changes, Reports change in appetite, Reports confusion, Reports depression, Reports difficulty concentrating, Reports auditory hallucinations (denies), Reports hopelessness, Reports irritability, Reports anhedonia, Reports memory loss, Reports mood swings, Reports panic attacks, Reports paranoia and Reports suicidal ideation (denies) Mental Status Exam Mental Status Exam Narrative: Patient Appearance:?Unkempt Patient Orientation:?Person, Place, Time and Situation Level of Consciousness:?Alert Patient Behavior:?passive, cooperative Mood Description:? ok for now_ Affect Description:?blunted Patient Cognition Impaired:?No Ability to Follow Directions:?Good Speech Pattern:?spontaneous Memory Description:?Episodic Impaired Hallucinations:?None Delusions:?Not Present. Paranoia Thought Process:?goal oriented Thought Content:Denies SI or HI Depressive Symptoms:?Diff. Making Decisions, Sleeping More Than Usual, Loss of Int. in Activity, Feelings of Worthlessness, Hopelessness, Isolating- Friends/Family, Unhappiness, Increased Fatigue, Thoughts of /Suicide (denies active intent), Low Self Esteem, Loss of Energy and Difficulty Concentrating Judgment/insight: Impaired Patient Appearance: Fatigued and Disheveled Patient Orientation: Person, Place, Time and Situation Level of Consciousness: Alert Patient Behavior: Appropriate, Talkative, Resistive to Care and Good Eye Contact Mood Description: Withdrawn, Depressed and Blunted Affect Description: Blunted Patient Cognition Impaired: No Ability to Follow Directions: Good Speech Pattern: Spontaneous Speech Memory Description: Episodic Impaired Diagnostics Vital Signs (24Hr): Vital Signs - 24 hr 12/15/21 06:00 12/15/21 18:00 Temperature 98.3 F 97.5 F Pulse Rate 69 74 Respiratory Rate 18 Blood Pressure 164/84 H 138/78 Pulse Oximetry 97 98 BMI result Verdana 4 Body Mass Index Verdana 4 29.1 Verdana 4 Verdana 4 Labs Results: 12/14/21 08:22 12/14/21 08:23 Labs: Laboratory Results - last 48 hr 12/14/21 12/14/21 12/14/21 08:22 08:22 08:23 WBC 5.4 RBC 4.27 L Hgb 12.5 L Hct 37.2 L MCV 87.1 MCH 29.3 MCHC 33.6 RDW 14.6 Plt Count 223 MPV 8.6 L Immature Gran % (Auto) 0.4 Neut % (Auto) 73.7 H Lymph % (Auto) 15.1 L Johnson % (Auto) 7.6 Eos % (Auto) 2.6 Baso % (Auto) 0.6 Lymph # (Auto) 0.8 L Johnson # (Auto) 0.4 Eos # (Auto) 0.1 Baso # (Auto) 0.0 Abs Immat Gran (auto) 0.02 Absolute Neuts (auto) 4.0 Absolute Nucleated RBC 0.000 Nucleated RBC % (auto) 0.0 Sodium 137 Potassium 4.5 D Chloride 101 Carbon Dioxide 29 Anion Gap 12 BUN 12 Creatinine 0.94 Estim Creat Clear Calc 104.9 Estimated GFR > 60 Random Glucose 93 Calcium 9.2 Total Bilirubin 0.4 AST 13 ALT 21 Alkaline Phosphatase 74 D Total Protein 5.9 L Albumin 3.8 Vitamin B12 377 Folate 7.6 TSH 1.80 Imaging Radiology Impressions: ITS Impressions Foot X-Ray 11/08/21 17:32 IMPRESSION: Tiny Achilles heel spur. Otherwise unremarkable appearance of the left foot. Cervical Spine X-Ray 11/22/21 14:50 IMPRESSION: No fracture or malalignment. Mild degenerative changes. Forearm X-Ray 11/22/21 14:50 IMPRESSION: No acute fractures or malalignment within the imaged left upper extremity. Hip X-Ray 11/22/21 14:50 IMPRESSION: No acute fractures or malalignment. Humerus X-Ray 11/22/21 14:50 IMPRESSION: No acute fractures or malalignment within the imaged left upper extremity. Shoulder X-Ray 11/22/21 14:50 IMPRESSION: No acute fractures or malalignment within the imaged left upper extremity. Medications Medications Current Medications Acetaminophen (Acetaminophen 325 Mg Tablet) 650 mg PO Q6H PRN PRN Reason: Headache/Pain Mild Scale (1-3) Al Hydroxide/Mg Hydroxide (Magnesium Hydrox/Alum Hydrox 30 Ml Oral.Susp) 30 ml PO Q6H PRN PRN Reason: Heartburn/Nausea Aripiprazole (Aripiprazole 20 Mg Tablet) 20 mg PO DAILY [facility] Last Admin: 12/15/21 09:03 Dose: 20 mg Documented by: Enoxaparin Sodium (Enoxaparin Sodium 40 Mg/0.4 Ml Syringe) 40 mg SUBCUT 2100 [facility] Last Admin: 12/15/21 22:00 Dose: 40 mg Documented by: Ferrous Sulfate (Ferrous Sulfate 324 Mg Tablet.) 324 mg PO BEDTIME [facility] Last Admin: 12/15/21 21:31 Dose: 324 mg Documented by: Hydroxyzine HCl (Hydroxyzine Hcl 25 Mg Tablet) 25 mg PO Q6H PRN PRN Reason: Anxiety Last Admin: 11/17/21 15:11 Dose: 25 mg Documented by: Lidocaine (Lidocaine 4 % Patch Adh..Patch) 1 patch TRANSDERMA DAILY [facility]; Protocol Last Admin: 12/15/21 09:04 Dose: Not Given Documented by: Loperamide HCl (Loperamide Hcl 2 Mg Capsule) 2 mg PO Q6H PRN PRN Reason: Diarrhea Last Admin: 11/17/21 13:40 Dose: 2 mg Documented by: Magnesium Hydroxide (Milk Of Magnesia 30 Ml Oral.Susp) 30 ml PO DAILY PRN PRN Reason: Constipation Modafinil (Modafinil 100 Mg Tablet) 200 mg PO DAILY [facility] Last Admin: 12/15/21 09:03 Dose: 200 mg Documented by: Omeprazole (Omeprazole 40 Mg Capsule.) 40 mg PO DAILY@0630 [facility] Last Admin: 12/15/21 06:14 Dose: 40 mg Documented by: Oxcarbazepine (Oxcarbazepine 300 Mg Tablet) 300 mg PO BID [facility] Last Admin: 12/15/21 21:31 Dose: 300 mg Documented by: Psyllium Hydrophilic Mucilloid (Psyllium Seed 3.4 Gm Powd.Pack) 3.4 gm PO BEDTIME [facility] Last Admin: 12/15/21 21:32 Dose: Not Given Documented by: Sertraline HCl (Sertraline Hcl 100 Mg Tablet) 200 mg PO BEDTIME [facility] Last Admin: 12/15/21 21:31 Dose: 200 mg Documented by: Sucralfate (Sucralfate 1 Gm Tablet) 1 gm PO TID [facility] Last Admin: 12/15/21 22:01 Dose: 1 gm Documented by: Trazodone HCl (Trazodone Hcl 50 Mg Tablet) 50 mg PO BEDTIME PRN PRN Reason: Insomnia Allergies Allergies Allergy/AdvReac Type Severity Reaction Status Date / Time No Known Allergies Allergy Unverified 11/07/21 21:23 Assessment & Plan Assessment & Plan (1) MDD (major depressive disorder), recurrent, severe, with psychosis: Status: Acute Code(s): F33.3 - Major depressive disorder, recurrent, severe with psychotic symptoms Plan Patient seen chart reviewed case reviewed with Miranda Guzman nurse practitioner and his . The patient has experienced a number of perceived losses over the past year including his old this son going to [employer] to [employer] selling their sailboat which had been a major feature in his life. Patient typically can be somewhat sentimental has a difficult time with transitions to some degree but no significant psychiatric history parted approximately 2-3 months ago. The patient was somewhat obsessional anxious depressed but there was some reported response to prior antidepressant trial as an outpatient. The patient had a severe exacerbation of symptoms great fear anxiety and somatic fears after he was treated surgically and developed an infection. The patient has a difficult time expressing his feelings but his cognitive dulling periods of irrational thinking poverty of content severe withdrawal cognitive dulling often being bed ridden are most consistent with major depression with psychotic features 11/09: Will start start sertraline 50 mg QHS to target sx of OCD with poor insight, depression. Will re-start ativan 1 mg Q6H PRN, as reports this was helpful for pt and he became more responsive on ativan. 11/10: Continue sertraline 50 mg and monitor for benefit. Lovenox started per recommendation of hospitalist for DVT prevention, as pt is immobile, despondent lying down in bed. 11/11: reviewed EKG. WIll increase sertraline to 75 mg and monitor for benefit. 11/13/21: Increase Olanzapine to 7.5 mg HS. Today pt with dysphoria, treatment r esistence. Work on alliance and engaging pt in his plan of care. 11/14/21: Continue current regime. 11/15/21: Increase Olanzapine to 10 mg HS. Continue to work on alliance. 11/16/21 Continue treatment plan 11/17/21 Continue treatment plan 11/18/21 continue treatment plan encourage prn atarax for anxiety 11/19/21: Regime not effective. Pt agrees to changes 1. Discontinue Olanzapine. 2. Risperdal 1.5 mg HS- for clarity of thought 3. Ativan 0.5 mg tid-for mgt of anxiety 4. Trileptal 150 mg bid- mood stabilization. Monitor response to medications. Monitor for safety in the milieu. Discharge on stabilization. Patient seen. Chart reviewed. Discussed with team. Obtain collateral contact info?as needed 11/21/21: Continue current regime-no medication changes today. Observe 11/22/21: Increase Trileptal to 300 mg bid 11/23/21: Continue current regime ECT consultation 11/24- no medication changes 11/25 continue current medications. 11/26/21: Pt considering signing a conditional voluntary Pt agrees to consult with Dr. Inman for ECT consideration. Increase Sertraline to 100 mg daily Continue to explore with Gerry possible psychosocial circumstances leading to increase in symptoms. 11/27/2021 Patient's diagnosis seems most consistent with major depression with psychotic features. Which trying get confirmation of brain MRI given patient's marked change in behavior and severe depressive symptoms periods of irrational thinking and melancholic symptoms of fatigue lethargy cognitive dulling marked decreased appetite. Would make sure no metabolic reasons for the above otherwise would aggressively treat for psychotic depression. Increase antidepressant trial as tolerated agree with lorazepam for pre catatonic like symptoms and would try Abilify for psychotic depression. If above not effective would consider ECT. Patient was unable to take information regarding ECT when seen literature given and literature also reviewed with patient's . She is reportedly healthcare proxy and this could become a consideration. For now patient showing some improvement. Monitor for hypotension Abilify encourage fluids. 11/28/21. Continue Abilify trial. 11/30/21: Increase Abilify to 10 mg daily Decrease Risperdal to 0.5 mg daily Increase Sertraline to 125 mg daily 12/01/21 continue current regimen for now 12/02/21 Continue current regimen for now Primary team to assess organic workup. TSH Wnl Patient the was expressed some history for what sounds like hypomanic episodes a nd may be experiencing bipolar depression. 12/03/21 Pt agrees to couples meeting on 12/04. Continue current regime. Discuss further changes 12/04 with the couple. 12/04/21 Increase Abilify to 20 mg. Provigil 100 mg a.m. Discontinue Risperdal Decrease Lorazepam to 0.25 mg tid Continue Sertraline, Trileptal, Trazodone 12/05/21 Continue current plan 12/06/21 Continue current plan 12/07/21 Some improvement noted Increase Sertraline to 150 mg daily 12/08/21 No change to current plan 12/09/21 No change to treatmen plan 12/11: continue current treatment. brighter affect, monosyllabic for most part, more visible. no si/hi. 12/12: continue same medications- consider reviewing head image to see any sign of fronto/ temporal atrophy, which may be causing symptoms of apathy, decline in functioning (executive function/difficulty initiating activities), consider neuropsych testing(outpatient) as MOCA may not be most reflective of decline as he was at baseline more high functioning individual. 12/14/21: Ferrous Sulfate 324 mg daily Begin Metamucil regime Increase Sertraline to 200 mg hs TRENT, CRP, RPR, Testosterone, ESR, HIV Pt considering neuro psych testing and allowing access to MRI results. 12/15: Tolerating medication changes I spent minutes with the patient and/or on the patient floor today, greater than?50% of which was spent counseling/coordinating care. Reason for contiued inpatient stay Substantial Risk for: inability to function
[2021-12-16 06:00] VITALS: BP 120/58; PULSE 85; RESP 14; TEMP 37.3; O2SAT 96
[2021-12-16] MEDS: modafiniL 100 MG TABLET 200 MG PO (08:58)
[2021-12-16] MEDS: Omeprazole 40 MG CAPSULE.DR PO (08:58)
[2021-12-16] MEDS: Sucralfate 1 GM TABLET PO ×3 (08:58→22:29)
[2021-12-16] MEDS: ARIPiprazole 20 MG TABLET PO (08:58)
[2021-12-16] MEDS: OXcarbazepine 300 MG TABLET PO ×2 (08:58→22:28)
--- NOTE | 2021-12-16 14:23 | P.PNPSI_ITS ---
Subjective Subjective Date of Service: 12/16/21 Reason For Visit: unspecified bipolar and related d/o Interim History: Patient seen. He was more open to discussion. He continues to be convinced his symptoms are the result of a physical rather than a psychological ailment. Asks about his MRI showing Massive voids . He says he has tremors at times. He reports fatigue and low energy. He doesn't believe he is depressed. Complains of fluctuating memory deficits. He is guarded. He denies SI. Taking medications. Reviewed ordered labs. All non-revealing. Review of Systems Review of Systems Yes all other systems are reviewed and are negative Constitutional: Reports weakness Reports vertigo and Reports dizziness Cardiovascular: Reports syncope Gastrointestinal: Reports dyspepsia and Reports heartburn Reports behavioral changes, Reports confusion, Reports vertigo, Reports dizziness, Reports syncope, Reports memory loss and Reports weakness Psychiatric: Reports no additional psychiatric complaints, Reports abnormal sleep pattern, Reports anxiety, Reports behavioral changes, Reports change in appetite, Reports confusion, Reports depression, Reports difficulty concentrating, Reports auditory hallucinations (denies), Reports hopelessness, Reports irritability, Reports anhedonia, Reports memory loss, Reports mood swings, Reports panic attacks, Reports paranoia and Reports suicidal ideation (denies) Mental Status Exam Mental Status Exam Narrative: Patient Appearance:?Unkempt Patient Orientation:?Person, Place, Time and Situation Level of Consciousness:?Alert Patient Behavior:?passive, cooperative Mood Description:? ok for now_ Affect Description:?blunted Patient Cognition Impaired:?No Ability to Follow Directions:?Good Speech Pattern:?spontaneous Memory Description:?Episodic Impaired Hallucinations:?None Delusions:?Not Present. Paranoia Thought Process:?goal oriented Thought Content:Denies SI or HI Depressive Symptoms:?Diff. Making Decisions, Sleeping More Than Usual, Loss of Int. in Activity, Feelings of Worthlessness, Hopelessness, Isolating- Friends/Family, Unhappiness, Increased Fatigue, Thoughts of /Suicide (denies active intent), Low Self Esteem, Loss of Energy and Difficulty Concentrating Judgment/insight: Impaired Patient Appearance: Fatigued and Disheveled Patient Orientation: Person, Place, Time and Situation Level of Consciousness: Alert Patient Behavior: Appropriate, Talkative, Resistive to Care and Good Eye Contact Mood Description: Withdrawn, Depressed and Blunted Affect Description: Blunted Patient Cognition Impaired: No Ability to Follow Directions: Good Speech Pattern: Spontaneous Speech Memory Description: Episodic Impaired Diagnostics Vital Signs (24Hr): Vital Signs - 24 hr 12/16/21 06:00 12/16/21 22:30 Temperature 99.1 F 97.3 F Pulse Rate 85 65 Respiratory Rate 14 Blood Pressure 120/58 L 146/84 H Pulse Oximetry 96 97 BMI result Verdana 4 Body Mass Index Verdana 4 29.1 Verdana 4 Verdana 4 Labs Results: 12/14/21 08:22 12/14/21 08:23 Imaging Radiology Impressions: ITS Impressions Foot X-Ray 11/08/21 17:32 IMPRESSION: Tiny Achilles heel spur. Otherwise unremarkable appearance of the left foot. Cervical Spine X-Ray 11/22/21 14:50 IMPRESSION: No fracture or malalignment. Mild degenerative changes. Forearm X-Ray 11/22/21 14:50 IMPRESSION: No acute fractures or malalignment within the imaged left upper extremity. Hip X-Ray 11/22/21 14:50 IMPRESSION: No acute fractures or malalignment. Humerus X-Ray 11/22/21 14:50 IMPRESSION: No acute fractures or malalignment within the imaged left upper extremity. Shoulder X-Ray 11/22/21 14:50 IMPRESSION: No acute fractures or malalignment within the imaged left upper extremity. Medications Medications Current Medications Acetaminophen (Acetaminophen 325 Mg Tablet) 650 mg PO Q6H PRN PRN Reason: Headache/Pain Mild Scale (1-3) Al Hydroxide/Mg Hydroxide (Magnesium Hydrox/Alum Hydrox 30 Ml Oral.Susp) 30 ml PO Q6H PRN PRN Reason: Heartburn/Nausea Aripiprazole (Aripiprazole 20 Mg Tablet) 20 mg PO DAILY [facility] Last Admin: 12/16/21 08:58 Dose: 20 mg Documented by: Enoxaparin Sodium (Enoxaparin Sodium 40 Mg/0.4 Ml Syringe) 40 mg SUBCUT 2100 [facility] Last Admin: 12/16/21 22:27 Dose: 40 mg Documented by: Ferrous Sulfate (Ferrous Sulfate 324 Mg Tablet.Dr) 324 mg PO BEDTIME [facility] Last Admin: 12/16/21 22:28 Dose: 324 mg Documented by: Hydroxyzine HCl (Hydroxyzine Hcl 25 Mg Tablet) 25 mg PO Q6H PRN PRN Reason: Anxiety Last Admin: 12/16/21 22:28 Dose: 25 mg Documented by: Lidocaine (Lidocaine 4 % Patch Adh..Patch) 1 patch TRANSDERMA DAILY [facility]; Protocol Last Admin: 12/16/21 09:01 Dose: Not Given Documented by: Loperamide HCl (Loperamide Hcl 2 Mg Capsule) 2 mg PO Q6H PRN PRN Reason: Diarrhea Last Admin: 11/17/21 13:40 Dose: 2 mg Documented by: Magnesium Hydroxide (Milk Of Magnesia 30 Ml Oral.Susp) 30 ml PO DAILY PRN PRN Reason: Constipation Modafinil (Modafinil 100 Mg Tablet) 200 mg PO DAILY [facility] Last Admin: 12/16/21 08:58 Dose: 200 mg Documented by: Omeprazole (Omeprazole 40 Mg Capsule.Dr) 40 mg PO DAILY@0630 [facility] Last Admin: 12/16/21 08:58 Dose: 40 mg Documented by: Oxcarbazepine (Oxcarbazepine 300 Mg Tablet) 300 mg PO BID [facility] Last Admin: 12/16/21 22:28 Dose: 300 mg Documented by: Psyllium Hydrophilic Mucilloid (Psyllium Seed 3.4 Gm Powd.Pack) 3.4 gm PO BEDTIME [facility] Last Admin: 12/16/21 22:29 Dose: Not Given Documented by: Sertraline HCl (Sertraline Hcl 100 Mg Tablet) 200 mg PO BEDTIME [facility] Last Admin: 12/16/21 22:28 Dose: 200 mg Documented by: Sucralfate (Sucralfate 1 Gm Tablet) 1 gm PO TID [facility] Last Admin: 12/16/21 22:29 Dose: 1 gm Documented by: Trazodone HCl (Trazodone Hcl 50 Mg Tablet) 50 mg PO BEDTIME PRN PRN Reason: Insomnia Allergies Allergies Allergy/AdvReac Type Severity Reaction Status Date / Time No Known Allergies Allergy Unverified 11/07/21 21:23 Assessment & Plan Assessment & Plan (1) MDD (major depressive disorder), recurrent, severe, with psychosis: Status: Acute Code(s): F33.3 - Major depressive disorder, recurrent, severe with psychotic symptoms Plan Patient seen chart reviewed case reviewed with Miranda Guzman nurse practitioner and his . The patient has experienced a number of perceived losses over the past year including his old this son going to [place] to boarding school selling their sailboat which had been a major feature in his life. Patient typically can be somewhat sentimental has a difficult time with transitions to some degree but no significant psychiatric history parted approximately 2-3 months ago. The patient was somewhat obsessional anxious depressed but there was some reported response to prior antidepressant trial as an outpatient. The patient had a severe exacerbation of symptoms great fear anxiety and somatic fears after he was treated surgically and developed an infection. The patient has a difficult time expressing his feelings but his cognitive dulling periods of irrational thinking poverty of content severe withdrawal cognitive dulling often being bed ridden are most consistent with major depression with psychotic features 11/09: Will start start sertraline 50 mg QHS to target sx of OCD with poor insight, depression. Will re-start ativan 1 mg Q6H PRN, as reports this was helpful for pt and he became more responsive on ativan. 11/10: Continue sertraline 50 mg and monitor for benefit. Lovenox started per recommendation of hospitalist for DVT prevention, as pt is immobile, despondent lying down in bed. 11/11: reviewed EKG. WIll increase sertraline to 75 mg and monitor for benefit. 11/13/21: Increase Olanzapine to 7.5 mg HS. Today pt with dysphoria, treatment resistence. Work on alliance and engaging pt in his plan of care. 11/14/21: Continue current regime. 11/15/21: Increase Olanzapine to 10 mg HS. Continue to work on alliance. 11/16/21 Continue treatment plan 11/17/21 Continue treatment plan 11/18/21 continue treatment plan encourage prn atarax for anxiety 11/19/21: Regime not effective. Pt agrees to changes 1. Discontinue Olanzapine. 2. Risperdal 1.5 mg HS- for clarity of thought 3. Ativan 0.5 mg tid-for mgt of anxiety 4. Trileptal 150 mg bid- mood stabilization. Monitor response to medications. Monitor for safety in the milieu. Discharge on stabilization. Patient seen. Chart reviewed. Discussed with team. Obtain collateral contact info?as needed 11/21/21: Continue current regime-no medication changes today. Observe 11/22/21: Increase Trileptal to 300 mg bid 11/23/21: Continue current regime ECT consultation 11/24- no medication changes 11/25 continue current medications. 11/26/21: Pt considering signing a conditional voluntary Pt agrees to consult with Dr. Inman for ECT consideration. Increase Sertraline to 100 mg daily Continue to explore with Gerry possible psychosocial circumstances leading to increase in symptoms. 11/27/2021 Patient's diagnosis seems most consistent with major depression with psychotic features. Which trying get confirmation of brain MRI given patient's marked change in behavior and severe depressive symptoms periods of irrational thinking and melancholic symptoms of fatigue lethargy cognitive dulling marked decreased appetite. Would make sure no metabolic reasons for the above otherwise would aggressively treat for psychotic depression. Increase antidepressant trial as tolerated agree with lorazepam for pre catatonic like symptoms and would try Abilify for psychotic depression. If above not effective would consider ECT. Patient was unable to take information regarding ECT when seen literature given and literature also reviewed with patient's . She is reportedly healthcare proxy and this could become a consideration. For now patient showing some improvement. Monitor for hypotension Abilify encourage fluids. 11/28/21. Continue Abilify trial. 11/30/21: Increase Abilify to 10 mg daily Decrease Risperdal to 0.5 mg daily Increase Sertraline to 125 mg daily 12/01/21 continue current regimen for now 12/02/21 Continue current regimen for now Primary team to assess organic workup. TSH Wnl Patient the was expressed some history for what sounds like hypomanic episodes and may be experiencing bipolar depression. 12/03/21 Pt agrees to couples meeting on 12/04. Continue current regime. Discuss further changes 12/04 with the couple. 12/04/21 Increase Abilify to 20 mg. Provigil 100 mg a.m. Discontinue Risperdal Decrease Lorazepam to 0.25 mg tid Continue Sertraline, Trileptal, Trazodone 12/05/21 Continue current plan 12/06/21 Continue current plan 12/07/21 Some improvement noted Increase Sertraline to 150 mg daily 12/08/21 No change to current plan 12/09/21 No change to treatmen plan 12/11: continue current treatment. brighter affect, monosyllabic for most part, more visible. no si/hi. 12/12: continue same medications- consider reviewing head image to see any sign of fronto/ temporal atrophy, which may be causing symptoms of apathy, decline in functioning (executive function/difficulty initiating activities), consider neuropsych testing(outpatient) as MOCA may not be most reflective of decline as he was at baseline more high functioning individual. 12/14/21: Ferrous Sulfate 324 mg daily Begin Metamucil regime Increase Sertraline to 200 mg hs TRENT, CRP, RPR, Testosterone, ESR, HIV Pt considering neuro psych testing and allowing access to MRI results. 12/15: Tolerating medication changes I spent minutes with the patient and/or on the patient floor today, greater than?50% of which was spent counseling/coordinating care. Reason for contiued inpatient stay Substantial Risk for: harm to self
[2021-12-16] MEDS: Enoxaparin Sodium 40 MG/0.4 ML SYRINGE SUBCUT (22:27)
[2021-12-16] MEDS: hydrOXYzine HCL 25 MG TABLET PO (22:28)
[2021-12-16] MEDS: Sertraline HCL 100 MG TABLET 200 MG PO (22:28)
[2021-12-16] MEDS: Ferrous Sulfate 324 MG TABLET.DR PO (22:28)
[2021-12-16 22:30] VITALS: BP 146/84; PULSE 65; TEMP 36.3; O2SAT 97
--- NOTE | 2021-12-17 | ECG_ITS ---
Test Reason : htn, inc crp Blood Pressure : / mmHG Vent. Rate : 074 BPM Atrial Rate : 074 BPM P-R Int : 136 ms QRS Dur : 080 ms QT Int : 418 ms P-R-T Axes : 050 057 064 degrees QTc Int : 463 ms Normal sinus rhythm Nonspecific T wave abnormality Borderline ECG When compared with ECG of 10-NOV-2021 17:46, No significant change was found Referred By: Miranda Mueller Electronically Signed By:DIOGO GANDHI
[2021-12-17 06:00] VITALS: BP 141/81; PULSE 71; RESP 16
[2021-12-17] MEDS: Omeprazole 40 MG CAPSULE.DR PO (07:20)
[2021-12-17] MEDS: Sucralfate 1 GM TABLET PO ×3 (09:05→22:12)
[2021-12-17] MEDS: OXcarbazepine 300 MG TABLET PO ×2 (09:05→22:13)
[2021-12-17] MEDS: ARIPiprazole 20 MG TABLET PO (09:05)
[2021-12-17] MEDS: modafiniL 100 MG TABLET 200 MG PO (09:05)
[2021-12-17 09:37] LABS: Erythrocyte Sedimentation Rate 9 MM/HR (0-15)
[2021-12-17 09:46] LABS: HIV AB/AG Nonreactive (Nonreactive); HIV Num 1 0.15 S/CO (0.00-0.99)
[2021-12-17 09:55] LABS: Syphilis Screen Nonreactive (Nonreactive)
--- NOTE | 2021-12-17 17:13 | P.PNPSI_ITS ---
Subjective Subjective Date of Service: 12/17/21 Reason For Visit: unspecified bipolar and related d/o Subjective Notes: Section 7 Interim History: Met with pt and Zander KIM. Reports no change from medications titrated 12/14-Sertraline, Provigil. Gerry offers minimal information today regarding symptoms-not depressed, no energy, presents as more alert (?Provigil result). Pt did sign JOSE LUIS for [facility] MRI-he expressed great concern about the release being used for other information and did cross off all possible options. He would not discuss specifics of these concerns. Diagnostics ordered and pending. Care review completed with Dr. Brumfield of [facility]. Medication Compliance: Yes Side effects from medications: Yes (?BP elevation with Provigil increase) Attending Groups: No Review of Systems Acute medical concerns: No Medical Review of Systems: unchanged Review of Systems Reports behavioral changes and Reports memory loss Psychiatric: Reports anxiety, Reports behavioral changes, Reports depression, Reports difficulty concentrating, Reports hopelessness, Reports irritability, Reports anhedonia, Reports memory loss, Reports paranoia and Reports suicidal ideation (denies) Mental Status Exam Mental Status Exam Patient Appearance: Disheveled Patient Orientation: Person, Place, Time and Situation Level of Consciousness: Alert Patient Behavior: Guarded, Suspicious, Fearful, Resistive to Care, Avoidant, Fatigued, Distractible and Good Eye Contact Mood Description: Depressed and Angry Affect Description: Flat Patient Cognition Impaired: No Ability to Follow Directions: Fair Speech Pattern: Spontaneous Speech and Soft-Spoken Memory Description: Episodic Impaired Hallucinations: None Delusions: Paranoid Ideation Thought Process: Illogical, Distracted and Rumination Thought Content: positive for Obsessional Thoughts, positive for Perseveration, positive for Poverty of Content and positive for Slowed Thinking Depressive Symptoms: Diff. Making Decisions, Loss of Int. in Activity, Hopelessness, Isolating-Friends/Family, Unhappiness, Increased Fatigue, Low Self Esteem, Loss of Energy and Difficulty Concentrating Judgement: Fair Diagnostics Vital Signs (24Hr): Vital Signs - 24 hr 12/16/21 22:30 12/17/21 06:00 Temperature 97.3 F Pulse Rate 65 71 Respiratory Rate 16 Blood Pressure 146/84 H 141/81 H Pulse Oximetry 97 BMI result Verdana 4 Body Mass Index Verdana 4 29.1 Verdana 4 Verdana 4 Labs Results: 12/14/21 08:22 12/14/21 08:23 Labs: Laboratory Results - last 48 hr 12/17/21 12/17/21 12/17/21 08:32 08:32 08:32 ESR 9 C-Reactive Protein 2.10 H T.pallidum Ab (EIA) Nonreactive HIV 1&2 Ab/P24 Ag 4thGn 12/17/21 08:32 ESR C-Reactive Protein T.pallidum Ab (EIA) HIV 1&2 Ab/P24 Ag 4thGn Nonreactive Imaging Radiology Impressions: ITS Impressions Foot X-Ray 11/08/21 17:32 IMPRESSION: Tiny Achilles heel spur. Otherwise unremarkable appearance of the left foot. Cervical Spine X-Ray 11/22/21 14:50 IMPRESSION: No fracture or malalignment. Mild degenerative changes. Forearm X-Ray 11/22/21 14:50 IMPRESSION: No acute fractures or malalignment within the imaged left upper extremity. Hip X-Ray 11/22/21 14:50 IMPRESSION: No acute fractures or malalignment. Humerus X-Ray 11/22/21 14:50 IMPRESSION: No acute fractures or malalignment within the imaged left upper extremity. Shoulder X-Ray 11/22/21 14:50 IMPRESSION: No acute fractures or malalignment within the imaged left upper extremity. Medications Medications Current Medications Acetaminophen (Acetaminophen 325 Mg Tablet) 650 mg PO Q6H PRN PRN Reason: Headache/Pain Mild Scale (1-3) Al Hydroxide/Mg Hydroxide (Magnesium Hydrox/Alum Hydrox 30 Ml Oral.Susp) 30 ml PO Q6H PRN PRN Reason: Heartburn/Nausea Aripiprazole (Aripiprazole 20 Mg Tablet) 20 mg PO DAILY [facility] Last Admin: 12/17/21 09:05 Dose: 20 mg Documented by: Enoxaparin Sodium (Enoxaparin Sodium 40 Mg/0.4 Ml Syringe) 40 mg SUBCUT 2100 [facility] Last Admin: 12/16/21 22:27 Dose: 40 mg Documented by: Ferrous Sulfate (Ferrous Sulfate 324 Mg Tablet.) 324 mg PO BEDTIME [facility] Last Admin: 12/16/21 22:28 Dose: 324 mg Documented by: Hydroxyzine HCl (Hydroxyzine Hcl 25 Mg Tablet) 25 mg PO Q6H PRN PRN Reason: Anxiety Last Admin: 12/16/21 22:28 Dose: 25 mg Documented by: Lidocaine (Lidocaine 4 % Patch Adh..Patch) 1 patch TRANSDERMA DAILY [facility]; Protocol Last Admin: 12/17/21 09:08 Dose: Not Given Documented by: Loperamide HCl (Loperamide Hcl 2 Mg Capsule) 2 mg PO Q6H PRN PRN Reason: Diarrhea Last Admin: 11/17/21 13:40 Dose: 2 mg Documented by: Magnesium Hydroxide (Milk Of Magnesia 30 Ml Oral.Susp) 30 ml PO DAILY PRN PRN Reason: Constipation Modafinil (Modafinil 100 Mg Tablet) 200 mg PO DAILY [facility] Last Admin: 12/17/21 09:05 Dose: 200 mg Documented by: Omeprazole (Omeprazole 40 Mg Capsule.Dr) 40 mg PO DAILY@0630 [facility] Last Admin: 12/17/21 07:20 Dose: 40 mg Documented by: Oxcarbazepine (Oxcarbazepine 300 Mg Tablet) 300 mg PO BID [facility] Last Admin: 12/17/21 09:05 Dose: 300 mg Documented by: Psyllium Hydrophilic Mucilloid (Psyllium Seed 3.4 Gm Powd.Pack) 3.4 gm PO BEDTIME [facility] Last Admin: 12/16/21 22:29 Dose: Not Given Documented by: Sertraline HCl (Sertraline Hcl 100 Mg Tablet) 200 mg PO BEDTIME [facility] Last Admin: 12/16/21 22:28 Dose: 200 mg Documented by: Sucralfate (Sucralfate 1 Gm Tablet) 1 gm PO TID [facility] Last Admin: 12/17/21 14:18 Dose: 1 gm Documented by: Trazodone HCl (Trazodone Hcl 50 Mg Tablet) 50 mg PO BEDTIME PRN PRN Reason: Insomnia Allergies Allergies Allergy/AdvReac Type Severity Reaction Status Date / Time No Known Allergies Allergy Unverified 11/07/21 21:23 Assessment & Plan Assessment & Plan (1) MDD (major depressive disorder), recurrent, severe, with psychosis: Status: Acute Code(s): F33.3 - Major depressive disorder, recurrent, severe with psychotic symptoms Plan Patient seen chart reviewed case reviewed with Miranda Guzman nurse practitioner and his . The patient has experienced a number of perceived losses over the past year including his old this son going to [place] to boarding school selling their sailboat which had been a major feature in his life. Patient typically can be somewhat sentimental has a difficult time with transitions to some degree but no significant psychiatric history parted approximately 2-3 months ago. The patient was somewhat obsessional anxious depressed but there was some reported response to prior antidepressant trial as an outpatient. The patient had a severe exacerbation of symptoms great fear anxiety and somatic fears after he was treated surgically and developed an infection. The patient has a difficult time expressing his feelings but his cognitive dulling periods of irrational thinking poverty of content severe withdrawal cognitive dulling often being bed ridden are most consistent with major depression with psychotic features 11/09: Will start start sertraline 50 mg QHS to target sx of OCD with poor insight, depression. Will re-start ativan 1 mg Q6H PRN, as reports this was helpful for pt and he became more responsive on ativan. 11/10: Continue sertraline 50 mg and monitor for benefit. Lovenox started per recommendation of hospitalist for DVT prevention, as pt is immobile, despondent lying down in bed. 11/11: reviewed EKG. WIll increase sertraline to 75 mg and monitor for benefit. 11/13/21: Increase Olanzapine to 7.5 mg HS. Today pt with dysphoria, treatment resistence. Work on alliance and engaging pt in his plan of care. 11/14/21: Continue current regime. 11/15/21: Increase Olanzapine to 10 mg HS. Continue to work on alliance. 11/16/21 Continue treatment plan 11/17/21 Continue treatment plan 11/18/21 continue treatment plan encourage prn atarax for anxiety 11/19/21: Regime not effective. Pt agrees to changes 1. Discontinue Olanzapine. 2. Risperdal 1.5 mg HS- for clarity of thought 3. Ativan 0.5 mg tid-for mgt of anxiety 4. Trileptal 150 mg bid- mood stabilization. Monitor response to medications. Monitor for safety in the milieu. Discharge on stabilization. Patient seen. Chart reviewed. Discussed with team. Obtain collateral contact info?as needed 11/21/21: Continue current regime-no medication changes today. Observe 11/22/21: Increase Trileptal to 300 mg bid 11/23/21: Continue current regime ECT consultation 11/24- no medication changes 11/25 continue current medications. 11/26/21: Pt considering signing a conditional voluntary Pt agrees to consult with Dr. Inman for ECT consideration. Increase Sertraline to 100 mg daily Continue to explore with Gerry possible psychosocial circumstances leading to increase in symptoms. 11/27/2021 Patient's diagnosis seems most consistent with major depression with psychotic features. Which trying get confirmation of brain MRI given patient's marked change in behavior and severe depressive symptoms periods of irrational thinking and melancholic symptoms of fatigue lethargy cognitive dulling marked decreased appetite. Would make sure no metabolic reasons for the above otherwise would aggressively treat for psychotic depression. Increase antidepressant trial as tolerated agree with lorazepam for pre catatonic like symptoms and would try Abilify for psychotic depression. If above not effective would consider ECT. Patient was unable to take information regarding ECT when seen literature given and literature also reviewed with patient's . She is reportedly healthcare proxy and this could become a consideration. For now patient showing some improvement. Monitor for hypotension Abilify encourage fluids. 11/28/21. Continue Abilify trial. 11/30/21: Increase Abilify to 10 mg daily Decrease Risperdal to 0.5 mg daily Increase Sertraline to 125 mg daily 12/01/21 continue current regimen for now 12/02/21 Continue current regimen for now Primary team to assess organic workup. TSH Wnl Patient the was expressed some history for what sounds like hypomanic episodes and may be experiencing bipolar depression. 12/03/21 Pt agrees to couples meeting on 12/04. Continue current regime. Discuss further changes 12/04 with the couple. 12/04/21 Increase Abilify to 20 mg. Provigil 100 mg a.m. Discontinue Risperdal Decrease Lorazepam to 0.25 mg tid Continue Sertraline, Trileptal, Trazodone 12/05/21 Continue current plan 12/06/21 Continue current plan 12/07/21 Some improvement noted Increase Sertraline to 150 mg daily 12/08/21 No change to current plan 12/09/21 No change to treatmen plan 12/11: continue current treatment. brighter affect, monosyllabic for most part, more visible. no si/hi. 12/12: continue same medications- consider reviewing head image to see any sign of fronto/ temporal atrophy, which may be causing symptoms of apathy, decline in functioning (executive function/difficulty initiating activities), consider neuropsych testing(outpatient) as MOCA may not be most reflective of decline as he was at baseline more high functioning individual. 12/14/21: Ferrous Sulfate 324 mg daily Begin Metamucil regime Increase Sertraline to 200 mg hs TRENT, CRP, RPR, Testosterone, ESR, HIV Pt considering neuro psych testing and allowing access to MRI results. 12/15: Tolerating medication changes 12/17/21 Decrease Provigil to 100 mg daily. Tolerating Sertraline increase of 12/14. MRI results requested from [facility]. Court scheduled for 12/20/21. Will request to postpone. Discussed CV with pt. He declines at this time. I spent 40 minutes with the patient and/or on the patient floor today, greater than?50% of which was spent counseling/coordinating care. Reason for contiued inpatient stay Substantial Risk for: inability to function, rapid decompensation and med/psych decompensation
[2021-12-17 18:00] VITALS: BP 142/78; PULSE 64; TEMP 36.4; O2SAT 98
[2021-12-17] MEDS: Sertraline HCL 100 MG TABLET 200 MG PO (22:12)
[2021-12-17] MEDS: Ferrous Sulfate 324 MG TABLET.DR PO (22:12)
[2021-12-17] MEDS: Enoxaparin Sodium 40 MG/0.4 ML SYRINGE SUBCUT (22:13)
[2021-12-18] MEDS: Omeprazole 40 MG CAPSULE.DR PO (06:09)
[2021-12-18 06:20] VITALS: BP 166/84; PULSE 70; RESP 17; TEMP 36.6; O2SAT 98
[2021-12-18] MEDS: ARIPiprazole 20 MG TABLET PO (09:13)
[2021-12-18] MEDS: OXcarbazepine 300 MG TABLET PO ×2 (09:13→21:29)
[2021-12-18] MEDS: Sucralfate 1 GM TABLET PO ×3 (09:13→21:30)
[2021-12-18] MEDS: modafiniL 100 MG TABLET PO (09:13)
--- NOTE | 2021-12-18 12:42 | P.PNPSI_ITS ---
Subjective Subjective Date of Service: 12/18/21 Reason For Visit: unspecified bipolar and related d/o Interim History: Patient seen and discussed with team. Patient evaluated this morning and upon interview pt reports he feels alright and that he is sleeping and eating okay. Denies SE on medications. Continues to deny depressed mood but then says who knows? He endorses sx of depression including pessimism, hopelessness, avolition, and anhedonia, however he does appear somewhat more talkative, active, and engaged. He is showering, attending to basic ADLs. Says his energy is always low. Also reports feeling worried about being twitchy, reviewed sx of akathesia, unclear if this is what pt is experiencing, however willing to trial cogentin. In the milieu, patient is safe but isolative in behavior. Denies SI/SIB/HI upon inquiry. Denies irritability or assaultive ideation. Says he feels safe. Medication Compliance: Yes Side effects from medications: No Attending Groups: No Review of Systems Acute medical concerns: No Medical Review of Systems: unchanged Mental Status Exam Mental Status Exam Narrative: Patient Appearance:?Fatigued Patient Orientation:?Person, Place, Time and Situation Level of Consciousness:?Alert Patient Behavior:?Talkative, Cooperative, Passive, Fatigued, Distractible and Good Eye Contact Mood Description:?Flat Affect Description:?Flat Patient Cognition Impaired:?No Ability to Follow Directions:?Good Speech Pattern:?Clear, Spontaneous Speech and Soft-Spoken Memory Description:?Remote Impaired and Episodic Impaired Hallucinations:?None Delusions:?Not Present Perceptual Disturbances:?Depersonalization and Derealization Thought Process:?Distracted, Rumination and Slowed Thinking Thought Content:?positive for [place], positive for Perseveration and positive for Suicidal Ideation (denies) Depressive Symptoms:?Diff. Making Decisions, Sleeping More Than Usual, Loss of Int. in Activity, Hopelessness, Isolating-Friends/Family, Unhappiness, Increased Fatigue, Thoughts of /Suicide (denies), Loss of Energy and Difficulty Concentrating Judgement:?Fair Diagnostics Vital Signs (24Hr): Vital Signs - 24 hr 12/17/21 18:00 12/18/21 06:20 Temperature 97.5 F 98 F Pulse Rate 64 70 Respiratory Rate 17 Blood Pressure 142/78 H 166/84 H Pulse Oximetry 98 98 BMI result Verdana 4 Body Mass Index Verdana 4 29.1 Verdana 4 Verdana 4 Labs Results: 12/14/21 08:22 12/14/21 08:23 Labs: Laboratory Results - last 48 hr 12/17/21 12/17/21 12/17/21 08:32 08:32 08:32 ESR 9 C-Reactive Protein 2.10 H T.pallidum Ab (EIA) Nonreactive HIV 1&2 Ab/P24 Ag 4thGn 12/17/21 08:32 ESR C-Reactive Protein T.pallidum Ab (EIA) HIV 1&2 Ab/P24 Ag 4thGn Nonreactive Imaging Radiology Impressions: ITS Impressions Foot X-Ray 11/08/21 17:32 IMPRESSION: Tiny Achilles heel spur. Otherwise unremarkable appearance of the left foot. Cervical Spine X-Ray 11/22/21 14:50 IMPRESSION: No fracture or malalignment. Mild degenerative changes. Forearm X-Ray 11/22/21 14:50 IMPRESSION: No acute fractures or malalignment within the imaged left upper extremity. Hip X-Ray 11/22/21 14:50 IMPRESSION: No acute fractures or malalignment. Humerus X-Ray 11/22/21 14:50 IMPRESSION: No acute fractures or malalignment within the imaged left upper extremity. Shoulder X-Ray 11/22/21 14:50 IMPRESSION: No acute fractures or malalignment within the imaged left upper extremity. Medications Medications Current Medications Acetaminophen (Acetaminophen 325 Mg Tablet) 650 mg PO Q6H PRN PRN Reason: Headache/Pain Mild Scale (1-3) Al Hydroxide/Mg Hydroxide (Magnesium Hydrox/Alum Hydrox 30 Ml Oral.Susp) 30 ml PO Q6H PRN PRN Reason: Heartburn/Nausea Aripiprazole (Aripiprazole 20 Mg Tablet) 20 mg PO DAILY [facility] Last Admin: 12/18/21 09:13 Dose: 20 mg Documented by: Enoxaparin Sodium (Enoxaparin Sodium 40 Mg/0.4 Ml Syringe) 40 mg SUBCUT 2100 [facility] Last Admin: 12/17/21 22:13 Dose: 40 mg Documented by: Ferrous Sulfate (Ferrous Sulfate 324 Mg Tablet.Dr) 324 mg PO BEDTIME [facility] Last Admin: 12/17/21 22:12 Dose: 324 mg Documented by: Hydroxyzine HCl (Hydroxyzine Hcl 25 Mg Tablet) 25 mg PO Q6H PRN PRN Reason: Anxiety Last Admin: 12/16/21 22:28 Dose: 25 mg Documented by: Lidocaine (Lidocaine 4 % Patch Adh..Patch) 1 patch TRANSDERMA DAILY [facility]; Protocol Last Admin: 12/18/21 09:15 Dose: Not Given Documented by: Loperamide HCl (Loperamide Hcl 2 Mg Capsule) 2 mg PO Q6H PRN PRN Reason: Diarrhea Last Admin: 11/17/21 13:40 Dose: 2 mg Documented by: Magnesium Hydroxide (Milk Of Magnesia 30 Ml Oral.Susp) 30 ml PO DAILY PRN PRN Reason: Constipation Modafinil (Modafinil 100 Mg Tablet) 100 mg PO DAILY [facility] Last Admin: 12/18/21 09:13 Dose: 100 mg Documented by: Omeprazole (Omeprazole 40 Mg Capsule.Dr) 40 mg PO DAILY@0630 [facility] Last Admin: 12/18/21 06:09 Dose: 40 mg Documented by: Oxcarbazepine (Oxcarbazepine 300 Mg Tablet) 300 mg PO BID [facility] Last Admin: 12/18/21 09:13 Dose: 300 mg Documented by: Psyllium Hydrophilic Mucilloid (Psyllium Seed 3.4 Gm Powd.Pack) 3.4 gm PO BEDTIME [facility] Last Admin: 12/17/21 22:13 Dose: Not Given Documented by: Sertraline HCl (Sertraline Hcl 100 Mg Tablet) 200 mg PO BEDTIME [facility] Last Admin: 12/17/21 22:12 Dose: 200 mg Documented by: Sucralfate (Sucralfate 1 Gm Tablet) 1 gm PO TID [facility] Last Admin: 12/18/21 09:13 Dose: 1 gm Documented by: Trazodone HCl (Trazodone Hcl 50 Mg Tablet) 50 mg PO BEDTIME PRN PRN Reason: Insomnia Allergies Allergies Allergy/AdvReac Type Severity Reaction Status Date / Time No Known Allergies Allergy Unverified 11/07/21 21:23 Assessment & Plan Assessment & Plan (1) MDD (major depressive disorder), recurrent, severe, with psychosis: Status: Acute Code(s): F33.3 - Major depressive disorder, recurrent, severe with psychotic symptoms Plan Patient seen chart reviewed case reviewed with Miranda Guzman nurse practitioner and his . The patient has experienced a number of perceived losses over the past year including his old this son going to [place] to [employer] selling their sailboat which had been a major feature in his life. Patient typically can be somewhat sentimental has a difficult time with transitions to some degree but no significant psychiatric history parted approximately 2-3 months ago. The patient was somewhat obsessional anxious depressed but there was some reported response to prior antidepressant trial as an outpatient. The patient had a severe exacerbation of symptoms great fear anxiety and somatic fears after he was treated surgically and developed an infection. The patient has a difficult time expressing his feelings but his cognitive dulling periods of irrational thinking poverty of content severe withdrawal cognitive dulling often being bed ridden are most consistent with major depression with psychotic features 11/09: Will start start sertraline 50 mg QHS to target sx of OCD with poor insight, depression. Will re-start ativan 1 mg Q6H PRN, as reports this was helpful for pt and he became more responsive on ativan. 11/10: Continue sertraline 50 mg and monitor for benefit. Lovenox started per recommendation of hospitalist for DVT prevention, as pt is immobile, despondent lying down in bed. 11/11: reviewed EKG. WIll increase sertraline to 75 mg and monitor for benefit. 11/13/21: Increase Olanzapine to 7.5 mg HS. Today pt with dysphoria, treatment resistence. Work on alliance and engaging pt in his plan of care. 11/14/21: Continue current regime. 11/15/21: Increase Olanzapine to 10 mg HS. Continue to work on alliance. 11/16/21 Continue treatment plan 11/17/21 Continue treatment plan 11/18/21 continue treatment plan encourage prn atarax for anxiety 11/19/21: Regime not effective. Pt agrees to changes 1. Discontinue Olanzapine. 2. Risperdal 1.5 mg HS- for clarity of thought 3. Ativan 0.5 mg tid-for mgt of anxiety 4. Trileptal 150 mg bid- mood stabilization. Monitor response to medications. Monitor for safety in the milieu. Discharge on stabilization. Patient seen. Chart reviewed. Discussed with team. Obtain collateral contact info?as needed 11/21/21: Continue current regime-no medication changes today. Observe 11/22/21: Increase Trileptal to 300 mg bid 11/23/21: Continue current regime ECT consultation 11/24- no medication changes 11/25 continue current medications. 11/26/21: Pt considering signing a conditional voluntary Pt agrees to consult with Dr. Inman for ECT consideration. Increase Sertraline to 100 mg daily Continue to explore with Gerry possible psychosocial circumstances leading to increase in symptoms. 11/27/2021 Patient's diagnosis seems most consistent with major depression with psychotic features. Which trying get confirmation of brain MRI given patient's marked change in behavior and severe depressive symptoms periods of irrational thinking and melancholic symptoms of fatigue lethargy cognitive dulling marked decreased appetite. Would make sure no metabolic reasons for the above otherwise would aggressively treat for psychotic depression. Increase antidepressant trial as tolerated agree with lorazepam for pre catatonic like symptoms and would try Abilify for psychotic depression. If above not effective would consider ECT. Patient was unable to take information regarding ECT when seen literature given and literature also reviewed with patient's . She is reportedly healthcare proxy and this could become a consideration. For now patient showing some improvement. Monitor for hypotension Abilify encourage fluids. 11/28/21. Continue Abilify trial. 11/30/21: Increase Abilify to 10 mg daily Decrease Risperdal to 0.5 mg daily Increase Sertraline to 125 mg daily 12/01/21 continue current regimen for now 12/02/21 Continue current regimen for now Primary team to assess organic workup. TSH Wnl Patient the was expressed some history for what sounds like hypomanic episodes and may be experiencing bipolar depression. 12/03/21 Pt agrees to couples meeting on 12/04. Continue current regime. Discuss further changes 12/04 with the couple. 12/04/21 Increase Abilify to 20 mg. Provigil 100 mg a.m. Discontinue Risperdal Decrease Lorazepam to 0.25 mg tid Continue Sertraline, Trileptal, Trazodone 12/05/21 Continue current plan 12/06/21 Continue current plan 12/07/21 Some improvement noted Increase Sertraline to 150 mg daily 12/08/21 No change to current plan 12/09/21 No change to treatmen plan 12/11: continue current treatment. brighter affect, monosyllabic for most part, more visible. no si/hi. 12/12: continue same medications- consider reviewing head image to see any sign o f fronto/ temporal atrophy, which may be causing symptoms of apathy, decline in functioning (executive function/difficulty initiating activities), consider neuropsych testing(outpatient) as MOCA may not be most reflective of decline as he was at baseline more high functioning individual. 12/14/21: Ferrous Sulfate 324 mg daily Begin Metamucil regime Increase Sertraline to 200 mg hs TRENT, CRP, RPR, Testosterone, ESR, HIV Pt considering neuro psych testing and allowing access to MRI results. 12/15: Tolerating medication changes 12/17/21 Decrease Provigil to 100 mg daily. Tolerating Sertraline increase of 12/14. MRI results requested from [facility]. Court scheduled for 12/20/21. Will request to postpone. Discussed CV with pt. He declines at this time. 12/18/21 start trial of cogentin for possible akathesia I spent minutes with the patient and/or on the patient floor today, greater than?50% of which was spent counseling/coordinating care. Reason for contiued inpatient stay Substantial Risk for: inability to function, rapid decompensation and med/psych decompensation
[2021-12-18 20:23] VITALS: BP 144/81; PULSE 70
[2021-12-18] MEDS: Enoxaparin Sodium 40 MG/0.4 ML SYRINGE SUBCUT (21:29)
[2021-12-18] MEDS: Sertraline HCL 100 MG TABLET 200 MG PO (21:29)
[2021-12-18] MEDS: Benztropine Mesylate 0.5 MG TABLET PO (21:30)
[2021-12-18] MEDS: Ferrous Sulfate 324 MG TABLET.DR PO (21:30)
[2021-12-19 06:00] VITALS: BP 141/84; PULSE 85; RESP 17; TEMP 36.3; O2SAT 99
[2021-12-19] MEDS: Omeprazole 40 MG CAPSULE.DR PO (06:13)
[2021-12-19] MEDS: OXcarbazepine 300 MG TABLET PO ×2 (08:47→20:10)
[2021-12-19] MEDS: modafiniL 100 MG TABLET PO (08:47)
[2021-12-19] MEDS: Benztropine Mesylate 0.5 MG TABLET PO ×2 (08:47→20:12)
[2021-12-19] MEDS: Sucralfate 1 GM TABLET PO ×3 (08:47→20:10)
[2021-12-19] MEDS: ARIPiprazole 20 MG TABLET PO (08:47)
[2021-12-19 13:11] LABS: Anti Nuclear Antibody Screen NEGATIVE (NEGATIVE)
--- NOTE | 2021-12-19 15:53 | HO.PSYCHPN ---
Subjective Subjective Date of Service: 12/19/21 Reason For Visit: unspecified bipolar and related d/o Subjective Notes: Section 7 (court postponed 01/10) Healthcare Proxy: Yes Guardianship: No Interim History: MRI results received from [facility]-no acute infarct, mass, hemorrhage, or other intracranial abnormality. Minimal T2/FLAIR hyperintense foci in the white matter, nonspecific but most likely reflecting chronic small vessel disease. Gerry describes anergy, a drain to walk to the nurses station , poor recall, difficulty gathering thoughts, poor memory-hand tremor-especially when writing. Discussed neuro consult, EEG, next medication trials and ongoing evaluation. Reviewed pt's COVID course in Oct 2020 as well. Met with pt for ~25 minutes- upon completion I am exhausted by this . Medication Compliance: Yes Side effects from medications: Yes (? hand tremor from Abilify) Attending Groups: No ( too much effort ) Review of Systems Acute medical concerns: No Medical Review of Systems: unchanged Review of Systems Constitutional: Reports fatigue, Reports lethargy, Reports malaise and Reports weakness Reports memory loss and Reports weakness Psychiatric: Reports anxiety, Reports difficulty concentrating, Reports hopelessness, Reports anhedonia and Reports memory loss Endocrine: Reports fatigue Mental Status Exam Mental Status Exam Patient Appearance: Fatigued Patient Orientation: Person, Place, Time and Situation Level of Consciousness: Alert Patient Behavior: Talkative, Cooperative, Passive, Fatigued, Distractible and Good Eye Contact Mood Description: Flat Affect Description: Flat Patient Cognition Impaired: No Ability to Follow Directions: Good Speech Pattern: Clear, Spontaneous Speech and Soft-Spoken Memory Description: Remote Impaired and Episodic Impaired Hallucinations: None Delusions: Not Present Perceptual Disturbances: Depersonalization and Derealization Thought Process: Distracted, Rumination and Slowed Thinking Thought Content: positive for [place], positive for Perseveration and positive for Suicidal Ideation (denies) Depressive Symptoms: Diff. Making Decisions, Sleeping More Than Usual, Loss of Int. in Activity, Hopelessness, Isolating-Friends/Family, Unhappiness, Increased Fatigue, Thoughts of /Suicide (denies), Loss of Energy and Difficulty Concentrating Judgement: Fair Diagnostics Vital Signs (24Hr): Vital Signs - 24 hr 12/18/21 20:23 12/19/21 06:00 Temperature 97.4 F Pulse Rate 70 85 Respiratory Rate 17 Blood Pressure 144/81 H 141/84 H Pulse Oximetry 99 BMI result Body Mass Index 29.1 Labs Results: 12/14/21 08:22 12/14/21 08:23 Labs: Laboratory Results - last 48 hr 12/17/21 08:32 TRENT Screen NEGATIVE Imaging Radiology Impressions: ITS Impressions Foot X-Ray 11/08/21 17:32 IMPRESSION: Tiny Achilles heel spur. Otherwise unremarkable appearance of the left foot. Cervical Spine X-Ray 11/22/21 14:50 IMPRESSION: No fracture or malalignment. Mild degenerative changes. Forearm X-Ray 11/22/21 14:50 IMPRESSION: No acute fractures or malalignment within the imaged left upper extremity. Hip X-Ray 11/22/21 14:50 IMPRESSION: No acute fractures or malalignment. Humerus X-Ray 11/22/21 14:50 IMPRESSION: No acute fractures or malalignment within the imaged left upper extremity. Shoulder X-Ray 11/22/21 14:50 IMPRESSION: No acute fractures or malalignment within the imaged left upper extremity. Medications Medications Current Medications Acetaminophen (Acetaminophen 325 Mg Tablet) 650 mg PO Q6H PRN PRN Reason: Headache/Pain Mild Scale (1-3) Al Hydroxide/Mg Hydroxide (Magnesium Hydrox/Alum Hydrox 30 Ml Oral.Susp) 30 ml PO Q6H PRN PRN Reason: Heartburn/Nausea Aripiprazole (Aripiprazole 10 Mg Tablet) 10 mg PO DAILY [facility] Benztropine Mesylate (Benztropine Mesylate 0.5 Mg Tablet) 0.5 mg PO BID [facility] Last Admin: 12/19/21 08:47 Dose: 0.5 mg Documented by: Enoxaparin Sodium (Enoxaparin Sodium 40 Mg/0.4 Ml Syringe) 40 mg SUBCUT 2100 [facility] Last Admin: 12/18/21 21:29 Dose: 40 mg Documented by: Ferrous Sulfate (Ferrous Sulfate 324 Mg Tablet.) 324 mg PO BEDTIME [facility] Last Admin: 12/18/21 21:30 Dose: 324 mg Documented by: Hydroxyzine HCl (Hydroxyzine Hcl 25 Mg Tablet) 25 mg PO Q6H PRN PRN Reason: Anxiety Last Admin: 12/16/21 22:28 Dose: 25 mg Documented by: Lidocaine (Lidocaine 4 % Patch Adh..Patch) 1 patch TRANSDERMA DAILY [facility]; Protocol Last Admin: 12/19/21 08:51 Dose: Not Given Documented by: Loperamide HCl (Loperamide Hcl 2 Mg Capsule) 2 mg PO Q6H PRN PRN Reason: Diarrhea Last Admin: 11/17/21 13:40 Dose: 2 mg Documented by: Magnesium Hydroxide (Milk Of Magnesia 30 Ml Oral.Susp) 30 ml PO DAILY PRN PRN Reason: Constipation Modafinil (Modafinil 100 Mg Tablet) 100 mg PO DAILY [facility] Last Admin: 12/19/21 08:47 Dose: 100 mg Documented by: Omeprazole (Omeprazole 40 Mg Capsule.Dr) 40 mg PO DAILY@0630 [facility] Last Admin: 12/19/21 06:13 Dose: 40 mg Documented by: Oxcarbazepine (Oxcarbazepine 300 Mg Tablet) 300 mg PO BID [facility] Last Admin: 12/19/21 08:47 Dose: 300 mg Documented by: Psyllium Hydrophilic Mucilloid (Psyllium Seed 3.4 Gm Powd.Pack) 3.4 gm PO BEDTIME [facility] Last Admin: 12/18/21 21:30 Dose: Not Given Documented by: Sertraline HCl (Sertraline Hcl 100 Mg Tablet) 200 mg PO BEDTIME [facility] Last Admin: 12/18/21 21:29 Dose: 200 mg Documented by: Sucralfate (Sucralfate 1 Gm Tablet) 1 gm PO TID [facility] Last Admin: 12/19/21 14:31 Dose: 1 gm Documented by: Trazodone HCl (Trazodone Hcl 50 Mg Tablet) 50 mg PO BEDTIME PRN PRN Reason: Insomnia Allergies Allergies Allergy/AdvReac Type Severity Reaction Status Date / Time No Known Allergies Allergy Unverified 11/07/21 21:23 Assessment & Plan Assessment & Plan (1) MDD (major depressive disorder), recurrent, severe, with psychosis: Status: Acute Code(s): F33.3 - Major depressive disorder, recurrent, severe with psychotic symptoms Plan Patient seen chart reviewed case reviewed with Miranda Guzman nurse practitioner and his . The patient has experienced a number of perceived losses over the past year including his old this son going to [place] [email or web address] [place] selling their sailboat which had been a major feature in his life. Patient typically can be somewhat sentimental has a difficult time with transitions to some degree but no significant psychiatric history parted approximately 2-3 months ago. The patient was somewhat obsessional anxious depressed but there was some reported response to prior antidepressant trial as an outpatient. The patient had a severe exacerbation of symptoms great fear anxiety and somatic fears after he was treated surgically and developed an infection. The patient has a difficult time expressing his feelings but his cognitive dulling periods of irrational thinking poverty of content severe withdrawal cognitive dulling often being bed ridden are most consistent with major depression with psychotic features 11/09: Will start start sertraline 50 mg QHS to target sx of OCD with poor insight, depression. Will re-start ativan 1 mg Q6H PRN, as reports this was helpful for pt and he became more responsive on ativan. 11/10: Continue sertraline 50 mg and monitor for benefit. Lovenox started per recommendation of hospitalist for DVT prevention, as pt is immobile, despondent lying down in bed. 11/11: reviewed EKG. WIll increase sertraline to 75 mg and monitor for benefit. 11/13/21: Increase Olanzapine to 7.5 mg HS. Today pt with dysphoria, treatment resistence. Work on alliance and engaging pt in his plan of care. 11/14/21: Continue current regime. 11/15/21: Increase Olanzapine to 10 mg HS. Continue to work on alliance. 11/16/21 Continue treatment plan 11/17/21 Continue treatment plan 11/18/21 continue treatment plan encourage prn atarax for anxiety 11/19/21: Regime not effective. Pt agrees to changes 1. Discontinue Olanzapine. 2. Risperdal 1.5 mg HS- for clarity of thought 3. Ativan 0.5 mg tid-for mgt of anxiety 4. Trileptal 150 mg bid- mood stabilization. Monitor response to medications. Monitor for safety in the milieu. Discharge on stabilization. Patient seen. Chart reviewed. Discussed with team. Obtain collateral contact info?as needed 11/21/21: Continue current regime-no medication changes today. Observe 11/22/21: Increase Trileptal to 300 mg bid 11/23/21: Continue current regime ECT consultation 11/24- no medication changes 11/25 continue current medications. 11/26/21: Pt considering signing a conditional voluntary Pt agrees to consult with Dr. Inman for ECT consideration. Increase Sertraline to 100 mg daily Continue to explore with Gerry possible psychosocial circumstances leading to increase in symptoms. 11/27/2021 Patient's diagnosis seems most consistent with major depression with psychotic features. Which trying get confirmation of brain MRI given patient's marked change in behavior and severe depressive symptoms periods of irrational thinking and melancholic symptoms of fatigue lethargy cognitive dulling marked decreased appetite. Would make sure no metabolic reasons for the above otherwise would aggressively treat for psychotic depression. Increase antidepressant trial as tolerated agree with lorazepam for pre catatonic like symptoms and would try Abilify for psychotic depression. If above not effective would consider ECT. Patient was unable to take information regarding ECT when seen literature given and literature also reviewed with patient's . She is reportedly healthcare proxy and this could become a consideration. For now patient showing some improvement. Monitor for hypotension Abilify encourage fluids. 11/28/21. Continue Abilify trial. 11/30/21: Increase Abilify to 10 mg daily Decrease Risperdal to 0.5 mg daily Increase Sertraline to 125 mg daily 12/01/21 continue current regimen for now 12/02/21 Continue current regimen for now Primary team to assess organic workup. TSH Wnl Patient the was expressed some history for what sounds like hypomanic episodes and may be experiencing bipolar depression. 12/03/21 Pt agrees to couples meeting on 12/04. Continue current regime. Discuss further changes 12/04 with the couple. 12/04/21 Increase Abilify to 20 mg. Provigil 100 mg a.m. Discontinue Risperdal Decrease Lorazepam to 0.25 mg tid Continue Sertraline, Trileptal, Trazodone 12/05/21 Continue current plan 12/06/21 Continue current plan 12/07/21 Some improvement noted Increase Sertraline to 150 mg daily 12/08/21 No change to current plan 12/09/21 No change to treatmen plan 12/11: continue current treatment. brighter affect, monosyllabic for most part, more visible. no si/hi. 12/12: continue same medications- consider reviewing head image to see any sign of fronto/ temporal atrophy, which may be causing symptoms of apathy, decline in functioning (executive function/difficulty initiating activities), consider neuropsych testing(outpatient) as MOCA may not be most reflective of decline as he was at baseline more high functioning individual. 12/14/21: Ferrous Sulfate 324 mg daily Begin Metamucil regime Increase Sertraline to 200 mg hs TRENT, CRP, RPR, Testosterone, ESR, HIV Pt considering neuro psych testing and allowing access to MRI results. 12/15: Tolerating medication changes 12/17/21 Decrease Provigil to 100 mg daily. Tolerating Sertraline increase of 12/14. MRI results requested from [facility]. Court scheduled for 12/20/21. Will request to postpone. Discussed CV with pt. He declines at this time. 12/19/21 Pt reports regime to be ineffective at this time. Given trials of Abilify, Lexapro, Sertraline, Wellbutrin-depression, OCD sx and anxiety not well managed. ?Prozac, Anafranil, Viibryd, Venlafaxine Some effect with Provigil-no real efficacy with titration. Will decrease Trileptal and taper over the next three days. EEG ? Sustained post COVID syndrome contributing to sx. Venlafaxine XR 75 mg a.m. I spent 40 minutes with the patient and/or on the patient floor today, greater than?50% of which was spent counseling/coordinating care. Patient educated on: medication risk/benefits, therapeutic strategies and medical condition Informed Consent: further education needed Reason for contiued inpatient stay Substantial Risk for: inability to function, rapid decompensation and med/psych decompensation
[2021-12-19 18:00] VITALS: BP 124/86; PULSE 85; RESP 18; TEMP 36.1; O2SAT 96
[2021-12-19] MEDS: Sertraline HCL 100 MG TABLET 200 MG PO (20:10)
[2021-12-19] MEDS: Ferrous Sulfate 324 MG TABLET.DR PO (20:10)
[2021-12-19] MEDS: Enoxaparin Sodium 40 MG/0.4 ML SYRINGE SUBCUT (20:10)
[2021-12-20] MEDS: Omeprazole 40 MG CAPSULE.DR PO (06:13)
[2021-12-20] MEDS: ARIPiprazole 10 MG TABLET PO (08:16)
[2021-12-20] MEDS: Benztropine Mesylate 0.5 MG TABLET PO ×2 (08:16→21:30)
[2021-12-20] MEDS: Sucralfate 1 GM TABLET PO ×3 (08:16→21:30)
[2021-12-20] MEDS: modafiniL 100 MG TABLET PO (08:16)
[2021-12-20] MEDS: Venlafaxine HCl ER 75 MG CAP.ER.24H PO (08:16)
[2021-12-20 12:58] VITALS: BP 116/84; PULSE 89; RESP 16; TEMP 36.4; O2SAT 98
--- NOTE | 2021-12-20 17:13 | HO.PSYCHPN ---
Subjective Subjective Date of Service: 12/20/21 Reason For Visit: unspecified bipolar and related d/o Subjective Notes: Section 7 Interim History: Gerry presents more alert and engaged today. More talkative and expressive than in previous days meetings. He continues to report no change in symptom presentation-feels a weakness in his stomach-when he gets up and goes to the nursing station he feels tired and queasy in his stomach-like everything is moving. Reports hand tremor (Abilify decreased), pt reports no changes- I think it was before Abilify. Review of work/plan so far... Trials: Wellbutrin, Lexapro, Sertraline, Trazodone, Depakote, Trileptal, Benztropine, Zyprexa, Risperdal, Abilify, Provigil, and new Venlafaxine trial just initiated. Review of medical eval thus far- EEG pending. Discussed neruopsych testing, neuro eval as well. I just want it to be fixed. Medication Compliance: Yes Side effects from medications: No Attending Groups: No (encouraged pt to attend groups) Review of Systems Acute medical concerns: No Medical Review of Systems: unchanged Review of Systems Constitutional: Reports fatigue, Reports lethargy, Reports malaise and Reports weakness Reports memory loss and Reports weakness Psychiatric: Reports anxiety, Reports depression, Reports difficulty concentrating, Reports hopelessness, Reports irritability, Reports anhedonia and Reports memory loss Endocrine: Reports fatigue Mental Status Exam Mental Status Exam Patient Appearance: Appropriate Patient Orientation: Person, Place, Time and Situation Level of Consciousness: Alert Patient Behavior: Talkative and Distractible Mood Description: Blunted Affect Description: Blunted Patient Cognition Impaired: No Ability to Follow Directions: Good Speech Pattern: Clear, Perseverating, Appropriate, Spontaneous Speech and Soft-Spoken Memory Description: Episodic Impaired Hallucinations: None Delusions: Not Present Perceptual Disturbances: Depersonalization and Derealization Thought Process: Distracted and Rumination Thought Content: positive for [place] and positive for Suicidal Ideation (denies) Depressive Symptoms: Diff. Making Decisions, Loss of Int. in Activity, Isolating-Friends/Family, Increased Fatigue, Loss of Energy and Difficulty Concentrating Judgement: Fair Diagnostics Vital Signs (24Hr): Vital Signs - 24 hr 12/19/21 18:00 12/20/21 12:58 Temperature 97 F 97.6 F Pulse Rate 85 89 Respiratory Rate 18 16 Blood Pressure 124/86 116/84 Pulse Oximetry 96 98 BMI result Body Mass Index 29.1 Labs Results: 12/14/21 08:22 12/14/21 08:23 Labs: Laboratory Results - last 48 hr 12/17/21 08:32 TRENT Screen NEGATIVE TRENT Titer TNP TRENT Titer 2 TNP TRENT Titer 3 TNP TRENT Pattern TNP TRENT Pattern 2 TNP TRENT Pattern 3 TNP Imaging Radiology Impressions: ITS Impressions Foot X-Ray 11/08/21 17:32 IMPRESSION: Tiny Achilles heel spur. Otherwise unremarkable appearance of the left foot. Cervical Spine X-Ray 11/22/21 14:50 IMPRESSION: No fracture or malalignment. Mild degenerative changes. Forearm X-Ray 11/22/21 14:50 IMPRESSION: No acute fractures or malalignment within the imaged left upper extremity. Hip X-Ray 11/22/21 14:50 IMPRESSION: No acute fractures or malalignment. Humerus X-Ray 11/22/21 14:50 IMPRESSION: No acute fractures or malalignment within the imaged left upper extremity. Shoulder X-Ray 11/22/21 14:50 IMPRESSION: No acute fractures or malalignment within the imaged left upper extremity. Medications Medications Current Medications Acetaminophen (Acetaminophen 325 Mg Tablet) 650 mg PO Q6H PRN PRN Reason: Headache/Pain Mild Scale (1-3) Al Hydroxide/Mg Hydroxide (Magnesium Hydrox/Alum Hydrox 30 Ml Oral.Susp) 30 ml PO Q6H PRN PRN Reason: Heartburn/Nausea Aripiprazole (Aripiprazole 10 Mg Tablet) 10 mg PO DAILY [facility] Last Admin: 12/20/21 08:16 Dose: 10 mg Documented by: Benztropine Mesylate (Benztropine Mesylate 0.5 Mg Tablet) 0.5 mg PO BID [facility] Last Admin: 12/20/21 08:16 Dose: 0.5 mg Documented by: Enoxaparin Sodium (Enoxaparin Sodium 40 Mg/0.4 Ml Syringe) 40 mg SUBCUT 2100 [facility] Last Admin: 12/19/21 20:10 Dose: 40 mg Documented by: Ferrous Sulfate (Ferrous Sulfate 324 Mg Tablet.) 324 mg PO BEDTIME [facility] Last Admin: 12/19/21 20:10 Dose: 324 mg Documented by: Hydroxyzine HCl (Hydroxyzine Hcl 25 Mg Tablet) 25 mg PO Q6H PRN PRN Reason: Anxiety Last Admin: 12/16/21 22:28 Dose: 25 mg Documented by: Lidocaine (Lidocaine 4 % Patch Adh..Patch) 1 patch TRANSDERMA DAILY [facility]; Protocol Last Admin: 12/20/21 08:30 Dose: Not Given Documented by: Loperamide HCl (Loperamide Hcl 2 Mg Capsule) 2 mg PO Q6H PRN PRN Reason: Diarrhea Last Admin: 11/17/21 13:40 Dose: 2 mg Documented by: Magnesium Hydroxide (Milk Of Magnesia 30 Ml Oral.Susp) 30 ml PO DAILY PRN PRN Reason: Constipation Modafinil (Modafinil 100 Mg Tablet) 100 mg PO DAILY [facility] Last Admin: 12/20/21 08:16 Dose: 100 mg Documented by: Omeprazole (Omeprazole 40 Mg Capsule.Dr) 40 mg PO DAILY@0630 [facility] Last Admin: 12/20/21 06:13 Dose: 40 mg Documented by: Oxcarbazepine (Oxcarbazepine 300 Mg Tablet) 300 mg PO BEDTIME [facility] Stop: 12/23/21 08:00 Last Admin: 12/19/21 20:10 Dose: 300 mg Documented by: Psyllium Hydrophilic Mucilloid (Psyllium Seed 3.4 Gm Powd.Pack) 3.4 gm PO BEDTIME [facility] Last Admin: 12/19/21 20:10 Dose: 3.4 gm Documented by: Sertraline HCl (Sertraline Hcl 100 Mg Tablet) 200 mg PO BEDTIME [facility] Last Admin: 12/19/21 20:10 Dose: 200 mg Documented by: Sucralfate (Sucralfate 1 Gm Tablet) 1 gm PO TID [facility] Last Admin: 12/20/21 14:09 Dose: 1 gm Documented by: Trazodone HCl (Trazodone Hcl 50 Mg Tablet) 50 mg PO BEDTIME PRN PRN Reason: Insomnia Venlafaxine HCl (Venlafaxine Hcl Er 75 Mg Cap.Er.24h) 75 mg PO DAILY [facility] Last Admin: 12/20/21 08:16 Dose: 75 mg Documented by: Allergies Allergies Allergy/AdvReac Type Severity Reaction Status Date / Time No Known Allergies Allergy Unverified 11/07/21 21:23 Assessment & Plan Assessment & Plan (1) MDD (major depressive disorder), recurrent, severe, with psychosis: Status: Acute Code(s): F33.3 - Major depressive disorder, recurrent, severe with psychotic symptoms Plan Continue current plan. Venlafaxine tolerated-first dosage Await EEG testing and report I spent 35 minutes with the patient and/or on the patient floor today, greater than?50% of which was spent counseling/coordinating care. Patient educated on: medication risk/benefits, therapeutic strategies and medical condition Informed Consent: further education needed Reason for contiued inpatient stay Substantial Risk for: inability to function and rapid decompensation
[2021-12-20 21:29] VITALS: BP 137/68; PULSE 60
[2021-12-20] MEDS: Sertraline HCL 100 MG TABLET 200 MG PO (21:30)
[2021-12-20] MEDS: Enoxaparin Sodium 40 MG/0.4 ML SYRINGE SUBCUT (21:30)
[2021-12-20] MEDS: OXcarbazepine 300 MG TABLET PO (21:30)
[2021-12-20] MEDS: Ferrous Sulfate 324 MG TABLET.DR PO (21:31)
[2021-12-21 06:00] VITALS: BP 130/70; PULSE 92; TEMP 36.6; O2SAT 96
[2021-12-21] MEDS: Omeprazole 40 MG CAPSULE.DR PO (06:30)
[2021-12-21 08:45] VITALS: BP 133/77; PULSE 83; TEMP 37.1
[2021-12-21] MEDS: Venlafaxine HCl ER 75 MG CAP.ER.24H PO (08:50)
[2021-12-21] MEDS: modafiniL 100 MG TABLET PO (08:50)
[2021-12-21] MEDS: Sucralfate 1 GM TABLET PO ×3 (08:50→20:27)
[2021-12-21] MEDS: ARIPiprazole 10 MG TABLET PO (08:50)
[2021-12-21] MEDS: Benztropine Mesylate 0.5 MG TABLET PO ×2 (08:50→20:28)
--- NOTE | 2021-12-21 09:00 | EEG_ITS ---
This is a 16-channel EEG with an EKG lead. The patient is reported awake during the tracing. Background EEG rhythm is 7 to 8 hertz, low to medium amplitude posteriorly, lower amplitude fast anteriorly. Photic stimulation does not produce any significant abnormality. Hyperventilation is not performed. Cardiac lead does not reveal any significant abnormality. No sharp waves, spikes, or paroxysmal tendency noted. IMPRESSION: Mild generalized slowing with no evidence of seizure disorder. MD ANASTASIA Hunter/JULIO / [id number]
--- NOTE | 2021-12-21 10:20 | P.PNPSI_ITS ---
Subjective Subjective Date of Service: 12/21/21 Reason For Visit: unspecified bipolar and related d/o Subjective Notes: Section 7 Interim History: Gerry continues to report tireness associated with him not being able to get out of bed and engage in more activities while on the unit. He does not particularly identify himself as depressed, but is saddened by the severe declined in functioning that he has experienced over the last several months. He denies SI/HI. He is ambivalent about going home as he reports it will be hard on his family to see him this way. No signs of psychosis. EEG shows overall slowing. I would suggest new head imagine and if getting r ecords from [facility] most helpful for our neurologist to review the actual images, not the report. Medication Compliance: Yes Side effects from medications: No Review of Systems Review of Systems Yes all other systems are reviewed and are negative Constitutional: Reports fatigue, Reports lethargy, Reports malaise and Reports weakness Reports vertigo and Reports dizziness Cardiovascular: Reports syncope Gastrointestinal: Reports dyspepsia and Reports heartburn Reports behavioral changes, Reports confusion, Reports vertigo, Reports dizziness, Reports syncope, Reports memory loss and Reports weakness Psychiatric: Reports no additional psychiatric complaints, Reports abnormal sleep pattern, Reports anxiety, Reports behavioral changes, Reports change in appetite, Reports confusion, Reports depression, Reports difficulty concentrating, Reports auditory hallucinations (denies), Reports hopelessness, Reports irritability, Reports anhedonia, Reports memory loss, Reports mood swings, Reports panic attacks, Reports paranoia and Reports suicidal ideation (denies) Endocrine: Reports fatigue Diagnostics Vital Signs (24Hr): Vital Signs - 24 hr 12/21/21 08:45 12/21/21 18:00 12/22/21 06:00 Temperature 98.8 F 97.6 F 98.6 F Pulse Rate 83 89 74 Respiratory Rate 18 Blood Pressure 133/77 130/79 138/76 Pulse Oximetry 98 92 BMI result Verdana 4 Body Mass Index Verdana 4 29.1 Verdana 4 Verdana 4 Labs Results: 12/14/21 08:22 12/14/21 08:23 Labs: Laboratory Results - last 48 hr 12/17/21 08:32 TRENT Titer TNP TRENT Titer 2 TNP TRENT Titer 3 TNP TRENT Pattern TNP TRENT Pattern 2 TNP TRENT Pattern 3 TNP Imaging Radiology Impressions: ITS Impressions Foot X-Ray 11/08/21 17:32 IMPRESSION: Tiny Achilles heel spur. Otherwise unremarkable appearance of the left foot. Cervical Spine X-Ray 11/22/21 14:50 IMPRESSION: No fracture or malalignment. Mild degenerative changes. Forearm X-Ray 11/22/21 14:50 IMPRESSION: No acute fractures or malalignment within the imaged left upper extremity. Hip X-Ray 11/22/21 14:50 IMPRESSION: No acute fractures or malalignment. Humerus X-Ray 11/22/21 14:50 IMPRESSION: No acute fractures or malalignment within the imaged left upper extremity. Shoulder X-Ray 11/22/21 14:50 IMPRESSION: No acute fractures or malalignment within the imaged left upper extremity. Medications Medications Current Medications Acetaminophen (Acetaminophen 325 Mg Tablet) 650 mg PO Q6H PRN PRN Reason: Headache/Pain Mild Scale (1-3) Al Hydroxide/Mg Hydroxide (Magnesium Hydrox/Alum Hydrox 30 Ml Oral.Susp) 30 ml PO Q6H PRN PRN Reason: Heartburn/Nausea Aripiprazole (Aripiprazole 10 Mg Tablet) 10 mg PO DAILY [facility] Last Admin: 12/21/21 08:50 Dose: 10 mg Documented by: Benztropine Mesylate (Benztropine Mesylate 0.5 Mg Tablet) 0.5 mg PO BID [facility] Last Admin: 12/21/21 20:28 Dose: 0.5 mg Documented by: Enoxaparin Sodium (Enoxaparin Sodium 40 Mg/0.4 Ml Syringe) 40 mg SUBCUT 2100 [facility] Last Admin: 12/21/21 20:27 Dose: 40 mg Documented by: Ferrous Sulfate (Ferrous Sulfate 324 Mg Tablet.) 324 mg PO BEDTIME [facility] Last Admin: 12/21/21 20:27 Dose: 324 mg Documented by: Hydroxyzine HCl (Hydroxyzine Hcl 25 Mg Tablet) 25 mg PO Q6H PRN PRN Reason: Anxiety Last Admin: 12/16/21 22:28 Dose: 25 mg Documented by: Lidocaine (Lidocaine 4 % Patch Adh..Patch) 1 patch TRANSDERMA DAILY [facility]; Protocol Last Admin: 12/21/21 08:58 Dose: Not Given Documented by: Loperamide HCl (Loperamide Hcl 2 Mg Capsule) 2 mg PO Q6H PRN PRN Reason: Diarrhea Last Admin: 11/17/21 13:40 Dose: 2 mg Documented by: Magnesium Hydroxide (Milk Of Magnesia 30 Ml Oral.Susp) 30 ml PO DAILY PRN PRN Reason: Constipation Modafinil (Modafinil 100 Mg Tablet) 100 mg PO DAILY [facility] Last Admin: 12/21/21 08:50 Dose: 100 mg Documented by: Omeprazole (Omeprazole 40 Mg Capsule.Dr) 40 mg PO DAILY@0630 [facility] Last Admin: 12/22/21 06:33 Dose: 40 mg Documented by: Oxcarbazepine (Oxcarbazepine 300 Mg Tablet) 300 mg PO BEDTIME [facility] Stop: 12/23/21 08:00 Last Admin: 12/21/21 20:27 Dose: 300 mg Documented by: Psyllium Hydrophilic Mucilloid (Psyllium Seed 3.4 Gm Powd.Pack) 3.4 gm PO BE DTIME [facility] Last Admin: 12/21/21 20:28 Dose: Not Given Documented by: Sertraline HCl (Sertraline Hcl 100 Mg Tablet) 200 mg PO BEDTIME [facility] Last Admin: 12/21/21 20:27 Dose: 200 mg Documented by: Sucralfate (Sucralfate 1 Gm Tablet) 1 gm PO TID [facility] Last Admin: 12/21/21 20:27 Dose: 1 gm Documented by: Trazodone HCl (Trazodone Hcl 50 Mg Tablet) 50 mg PO BEDTIME PRN PRN Reason: Insomnia Venlafaxine HCl (Venlafaxine Hcl Er 75 Mg Cap.Er.24h) 75 mg PO DAILY [facility] Last Admin: 12/21/21 08:50 Dose: 75 mg Documented by: Allergies Allergies Allergy/AdvReac Type Severity Reaction Status Date / Time No Known Allergies Allergy Unverified 11/07/21 21:23 Assessment & Plan Assessment & Plan (1) MDD (major depressive disorder), recurrent, severe, with psychosis: Status: Acute Code(s): F33.3 - Major depressive disorder, recurrent, severe with psychotic symptoms Plan Continue current plan. Venlafaxine tolerated-first dosage 2/4- EEG showed generalized slowing no seizure activity, order MRI head. continue current medications. I spent __25____ minutes with the patient and/or on the patient floor today, greater than?50% of which was spent counseling/coordinating care. Reason for contiued inpatient stay Substantial Risk for: inability to function
[2021-12-21 18:00] VITALS: BP 130/79; PULSE 89; RESP 18; TEMP 36.4; O2SAT 98
[2021-12-21] MEDS: Sertraline HCL 100 MG TABLET 200 MG PO (20:27)
[2021-12-21] MEDS: OXcarbazepine 300 MG TABLET PO (20:27)
[2021-12-21] MEDS: Ferrous Sulfate 324 MG TABLET.DR PO (20:27)
[2021-12-21] MEDS: Enoxaparin Sodium 40 MG/0.4 ML SYRINGE SUBCUT (20:27)
[2021-12-22 06:00] VITALS: BP 138/76; PULSE 74; TEMP 37; O2SAT 92
[2021-12-22] MEDS: Omeprazole 40 MG CAPSULE.DR PO (06:33)
[2021-12-22] MEDS: Venlafaxine HCl ER 75 MG CAP.ER.24H PO (08:56)
[2021-12-22] MEDS: Sucralfate 1 GM TABLET PO ×3 (08:56→20:07)
[2021-12-22] MEDS: Benztropine Mesylate 0.5 MG TABLET PO ×2 (08:56→20:07)
[2021-12-22] MEDS: modafiniL 100 MG TABLET PO (08:56)
[2021-12-22] MEDS: ARIPiprazole 10 MG TABLET PO (08:56)
[2021-12-22 11:12] LABS: Testosterone, Free 38.4 pg/mL (35.0-155.0); Testosterone, Total 474 ng/dL (250-1100)
[2021-12-22 15:01] VITALS: BP 120/76; PULSE 81
[2021-12-22 15:02] VITALS: BP 85/58; PULSE 107
[2021-12-22 15:02] LABS: MANUAL DIFF FLAG NO
[2021-12-22 15:04] LABS: Basophils Percent Auto 0.4 % (0-2); Eosinophils Absolute Auto 0.1 X10*3/uL (0.0-0.4); Eosinophils Percent Auto 1.3 % (0-4); Hematocrit 37.5 % (42.0-52.0); Hemoglobin 12.6 g/dl (14.0-18.0); Imm Gran Abs Auto 0.03 X10*3/uL (0.00-0.03); Imm Gran Pct Auto 0.4 % (0.0-0.4); Lymphocytes Percent Auto 14.5 % (20-40); Mean Corpuscular HGB Conc 33.6 g/dl (31.0-36.0); Mean Corpuscular Hemoglobin 29.4 pg (27.0-33.0); Mean Corpuscular Volume 87.4 fL (80.0-98.0); Mean Platelet Volume 8.7 fL (9.4-12.4); Monocytes Absolute Auto 0.6 X10*3/uL (0.1-1.2); Monocytes Percent Auto 8.5 % (2-11); Neutrophils Absolute Auto 5.1 x10*3/uL (2.0-8.3); Neutrophils Percent Auto 74.9 % (45-73); Platelet Count 274 X10*3/uL (160-400); Red Blood Count 4.29 X10*6/uL (4.60-5.80); White Blood Count 6.8 X10*3/uL (4.8-10.8)
[2021-12-22 15:24] LABS: Alanine Aminotransferase 24 U/L (0-40); Albumin Level 4.1 g/dL (3.5-5.0); Alkaline Phosphatase 91 U/L (39-117); Anion Gap 11 (12-20); Aspartate Amino Transferase 13 U/L (5-37); Bilirubin Total 0.4 mg/dL (0.0-1.0); Blood Urea Nitrogen 14 mg/dL (9-16); Calcium 9.4 mg/dL (8.4-10.2); Carbon Dioxide 30 mmol/L (22-29); Chloride 98 mmol/L (96-108); Creatinine Clr Calc Pharmacy 100.6; Estimated Glomerular Filt Rate > 60; Glucose Random 114 mg/dL (60-115); Sodium 135 mmol/L (135-145); Total Protein 6.1 g/dL (6.5-8.0)
[2021-12-22 18:30] LABS: Appearance Urine CLEAR; Color Urine YELLOW; Glucose Urine UA NEG (NEG); Leukocyte Esterase Urine NEG (NEG); Nitrite Urine NEG (NEG); Specific Gravity - Urine 1.015 (1.005-1.025); Urine Blood NEG (NEG); Urine Ketones NEG (NEG); Urine Protein NEG (NEG-TRACE)
--- NOTE | 2021-12-22 19:40 | P.PNPSI_ITS ---
Subjective Subjective Date of Service: 12/23/21 Reason For Visit: unspecified bipolar and related d/o Interim History: Patient seen and discussed with team. Per direct support staff, pt has had some memory and concentration concerns, i.e. forgot nurses name, not oriented to time (thought it was afternoon when it was the morning), MRI ordered yesterday, EEG results obtained and negative for seizure disorder. Patient evaluated this morning and upon interview he reports he has been mostly laying down in bed, denies that this is due to depression or low energy. Rather he says when he gets up, he notices his arms start to shake a little bit and he feels like I gotta sit down, describes it as feeling awful inside and as a gnawing sensation. He then returns to bed, as he says sx will alleviate if he is not moving. Pt says he would prefer not to stay in bed and denies that this is baseline, its making me crazy. Sx did not start with medication, as he noticed feeling this way since August. Dnies pain. Says he has noticed cogntive sx, as he is typically good at doing math in his head and has struggled with this, feels it is hard to put thoughts together. Continues to report twitches and shaking, which does not appear med related and was not alleviated with cogentin. Continues to deny feeling depressed or anxious. Pt got up to retrieve his MRI paperwork during the interview and of note, he fell backwards and the back of his body hit the wall and he slid down it, denies pain or injury. Says he felt like I blacked out and noticed his vision started changing a little bit, also had a quiet, warm feeling. S/p fall, pt had a stunned look in his eyes and vitals showed episode of orthostasis. Encouraged fluids. Pt denies hx of syncope. In the milieu, patient is isolative to his room, staying in bed. Says he feels safe. Medication Compliance: Yes Side effects from medications: No Attending Groups: No Review of Systems Acute medical concerns: Yes Will order CMP, CBC, UA, head CT, stat vitals, ECG due to episode of orthostasis resulting in fall. Medical Review of Systems: unchanged Mental Status Exam Mental Status Exam Narrative: Patient Appearance:?Fatigued and Appropriate Patient Orientation:?Person, Place, Time and Situation Level of Consciousness:?Alert Patient Behavior:?Appropriate, Talkative, Cooperative and Good Eye Contact Mood Description:?Flat Affect Description:?Flat Patient Cognition Impaired:?No Ability to Follow Directions:?Good Speech Pattern:?Difficulty Finding Words (per pt report), Spontaneous Speech, Soft-Spoken, Mumbled (at times-able to clear when re-directed) and Rapid Memory Description:?Episodic Impaired Hallucinations:?None Delusions:?Not Present Thought Process:?Disoriented (not today, but reported over the weekend intermittently) and Distracted Thought Content:?positive for [place], positive for Circumstantial and positive for Suicidal Ideation (denies) Depressive Symptoms:?Increased Anxiety, Diff. Making Decisions, Loss of Int. in Activity, Hopelessness, Isolating-Friends/Family, Increased Fatigue, Thoughts of /Suicide (denies) and Loss of Energy Judgement:?Fair Diagnostics Vital Signs (24Hr): Vital Signs - 24 hr 12/24/21 06:00 Temperature 96.9 F Pulse Rate 73 Respiratory Rate 18 Blood Pressure 148/86 H Pulse Oximetry 97 BMI result Body Mass Index 29.1 Labs Results: 12/22/21 14:57 12/22/21 14:57 Imaging Radiology Impressions: ITS Impressions Foot X-Ray 11/08/21 17:32 IMPRESSION: Tiny Achilles heel spur. Otherwise unremarkable appearance of the left foot. Cervical Spine X-Ray 11/22/21 14:50 IMPRESSION: No fracture or malalignment. Mild degenerative changes. Forearm X-Ray 11/22/21 14:50 IMPRESSION: No acute fractures or malalignment within the imaged left upper extremity. Hip X-Ray 11/22/21 14:50 IMPRESSION: No acute fractures or malalignment. Humerus X-Ray 11/22/21 14:50 IMPRESSION: No acute fractures or malalignment within the imaged left upper extremity. Shoulder X-Ray 11/22/21 14:50 IMPRESSION: No acute fractures or malalignment within the imaged left upper extremity. Head CT 12/22/21 16:42 IMPRESSION: No acute intracranial pathology. Medications Medications Current Medications Acetaminophen (Acetaminophen 325 Mg Tablet) 650 mg PO Q6H PRN PRN Reason: Headache/Pain Mild Scale (1-3) Al Hydroxide/Mg Hydroxide (Magnesium Hydrox/Alum Hydrox 30 Ml Oral.Susp) 30 ml PO Q6H PRN PRN Reason: Heartburn/Nausea Aripiprazole (Aripiprazole 10 Mg Tablet) 10 mg PO DAILY [facility] Last Admin: 12/24/21 08:18 Dose: 10 mg Documented by: Benztropine Mesylate (Benztropine Mesylate 0.5 Mg Tablet) 0.5 mg PO BID [facility] Last Admin: 12/24/21 08:18 Dose: 0.5 mg Documented by: Enoxaparin Sodium (Enoxaparin Sodium 40 Mg/0.4 Ml Syringe) 40 mg SUBCUT 2100 [facility] Last Admin: 12/23/21 21:37 Dose: 40 mg Documented by: Ferrous Sulfate (Ferrous Sulfate 324 Mg Tablet.) 324 mg PO BEDTIME [facility] Last Admin: 12/23/21 21:37 Dose: 324 mg Documented by: Hydroxyzine HCl (Hydroxyzine Hcl 25 Mg Tablet) 25 mg PO Q6H PRN PRN Reason: Anxiety Last Admin: 12/16/21 22:28 Dose: 25 mg Documented by: Lidocaine (Lidocaine 4 % Patch Adh..Patch) 1 patch TRANSDERMA DAILY [facility]; Protocol Last Admin: 12/24/21 08:20 Dose: Not Given Documented by: Loperamide HCl (Loperamide Hcl 2 Mg Capsule) 2 mg PO Q6H PRN PRN Reason: Diarrhea Last Admin: 11/17/21 13:40 Dose: 2 mg Documented by: Losartan Potassium (Losartan Potassium 25 Mg Tablet) 12.5 mg PO DAILY [facility]; Protocol Magnesium Hydroxide (Milk Of Magnesia 30 Ml Oral.Susp) 30 ml PO DAILY PRN PRN Reason: Constipation Omeprazole (Omeprazole 40 Mg Capsule.) 40 mg PO DAILY@0630 [facility] Last Admin: 12/24/21 06:03 Dose: 40 mg Documented by: Psyllium Hydrophilic Mucilloid (Psyllium Seed 3.4 Gm Powd.Pack) 3.4 gm PO BEDTIME [facility] Last Admin: 12/23/21 21:37 Dose: Not Given Documented by: Sertraline HCl (Sertraline Hcl 50 Mg Tablet) 150 mg PO BEDTIME [facility] Sucralfate (Sucralfate 1 Gm Tablet) 1 gm PO TID [facility] Last Admin: 12/24/21 14:45 Dose: 1 gm Documented by: Trazodone HCl (Trazodone Hcl 50 Mg Tablet) 50 mg PO BEDTIME PRN PRN Reason: Insomnia Allergies Allergies Allergy/AdvReac Type Severity Reaction Status Date / Time No Known Allergies Allergy Unverified 11/07/21 21:23 Assessment & Plan Assessment & Plan (1) Encephalopathy chronic: Status: Acute Code(s): G93.49 - Other encephalopathy (2) MDD (major depressive disorder), recurrent, severe, with psychosis: Status: Acute Code(s): F33.3 - Major depressive disorder, recurrent, severe with psychotic symptoms Plan Continue current plan. Venlafaxine added to target perseverative thoughts. EEG negative for seizure disorder. 12/22: Pt had a fall in his room, episode of orthostasis, fluids encouraged, will obtain head CT and lab work, u/a to rule out pathology for altered mental status, as direct support staff report pt is forgetful and confused at times. Will obtain neuro consult. Order ECG. I spent minutes with the patient and/or on the patient floor today, greater than?50% of which was spent counseling/coordinating care. Reason for contiued inpatient stay Substantial Risk for: rapid decompensation and med/psych decompensation
[2021-12-22] MEDS: Enoxaparin Sodium 40 MG/0.4 ML SYRINGE SUBCUT (20:07)
[2021-12-22] MEDS: Sertraline HCL 100 MG TABLET 200 MG PO (20:07)
[2021-12-22] MEDS: OXcarbazepine 300 MG TABLET PO (20:07)
[2021-12-22] MEDS: Ferrous Sulfate 324 MG TABLET.DR PO (20:07)
[2021-12-23 06:00] VITALS: BP 156/86; PULSE 74; TEMP 37.2; O2SAT 98
[2021-12-23] MEDS: Omeprazole 40 MG CAPSULE.DR PO (06:25)
[2021-12-23] MEDS: Venlafaxine HCl ER 75 MG CAP.ER.24H PO (08:47)
[2021-12-23] MEDS: modafiniL 100 MG TABLET PO (08:47)
[2021-12-23] MEDS: ARIPiprazole 10 MG TABLET PO (08:47)
[2021-12-23] MEDS: Sucralfate 1 GM TABLET PO ×3 (08:47→21:37)
[2021-12-23] MEDS: Benztropine Mesylate 0.5 MG TABLET PO ×2 (08:47→21:37)
--- NOTE | 2021-12-23 13:35 | P.CNNE_ITS ---
History of Present Illness Data of Consult Service Date: 12/23/21 Primary Care Provider: Ama Kilgore DO HPI Reason for consult: Unexplained change in mental status 56 years old man who apparently was doing reasonably well with no significant issues, as far as mental disorder is concerned, until last year. I have not talked to his family or but this information was obtained from medical records. At some point in early fall of last year he complained of anxiety type of symptoms and was prescribed an SSRI by his primary care physician. Last fall he was admitted in [facility] with a finger infection, when multiple mental symptoms were reported or noted. Was noted to be anxious, paranoid, and was somewhat having bizarre thinking. In September of last year he had an MRI of bra in done through [facility]. According to the reported revealed some white matter changes. Now he was admitted on psych floor and was noted to be very confused. When I talked to him, he said that he was feeling nervous and anxious. He said that his sister suffered from similar condition. There was no history of any seizure disorder Or headaches. Apparently he was not known to be excessively drinking alcohol or using other drugs abuse. He was noted to have hand tremor which He said was a recent development. There were no bowel bladder difficulties. there were no visual difficulties. I was told that he might have suffered from COVID infection more than a year ago but I could not confirm that from medical records. Review of Systems Verdana 4l Review of Systems: Verdana 4d No recent cold or Verdana 4d flu-like illness, no headaches or seizures. Verdana 4d PMFSH Past Medical History Medical History (Updated 12/23/21 @ 13:43 by Sonya Matias MD) Gram-negative bacteremia Social History Social History Household Members: Spouse and Children Household Members Other:: and Three Children ages 11, 13, 15 Housing: House Do you presently have visiting nurse or other home services: No Patient Tobacco Use Status: Never used Tobacco Use of substances other than those prescribed or required for medical reasons: No Currently Displaying Signs/Symptoms of Drug Intoxication Withdrawal: No Have you been hit, kicked, punched, or otherwise hurt by someone within the past year? If so, by whom?: No Do you feel safe in your current relationship?: Yes Is there a partner from a previous relationship who is making you feel unsafe now?: No Are you made to feel afraid or neglected: No Advance Directives: No Advance Directives Information Provided: No Do you have thoughts of harming others: None Do you have a plan to hurt others: No Plan Recently lost weight without trying: No Eating poorly because of decreased appetite: No Nutrition Risks: No Nutritional Risk Poor oral hygiene: No service: No (Vindicia [id number]) Sexual orientation: Straight/Heterosexual Meds Allergies Allergy/AdvReac Type Severity Reaction Status Date / Time No Known Allergies Allergy Unverified 11/07/21 21:23 Active Medications: Current Medications Acetaminophen (Acetaminophen 325 Mg Tablet) 650 mg PO Q6H PRN PRN Reason: Headache/Pain Mild Scale (1-3) Al Hydroxide/Mg Hydroxide (Magnesium Hydrox/Alum Hydrox 30 Ml Oral.Susp) 30 ml PO Q6H PRN PRN Reason: Heartburn/Nausea Aripiprazole (Aripiprazole 10 Mg Tablet) 10 mg PO DAILY [facility] Last Admin: 12/23/21 08:47 Dose: 10 mg Documented by: Benztropine Mesylate (Benztropine Mesylate 0.5 Mg Tablet) 0.5 mg PO BID [facility] Last Admin: 12/23/21 08:47 Dose: 0.5 mg Documented by: Enoxaparin Sodium (Enoxaparin Sodium 40 Mg/0.4 Ml Syringe) 40 mg SUBCUT 2100 [facility] Last Admin: 12/22/21 20:07 Dose: 40 mg Documented by: Ferrous Sulfate (Ferrous Sulfate 324 Mg Tablet.Dr) 324 mg PO BEDTIME [facility] Last Admin: 12/22/21 20:07 Dose: 324 mg Documented by: Hydroxyzine HCl (Hydroxyzine Hcl 25 Mg Tablet) 25 mg PO Q6H PRN PRN Reason: Anxiety Last Admin: 12/16/21 22:28 Dose: 25 mg Documented by: Lidocaine (Lidocaine 4 % Patch Adh..Patch) 1 patch TRANSDERMA DAILY [facility]; Protocol Last Admin: 12/23/21 08:47 Dose: Not Given Documented by: Loperamide HCl (Loperamide Hcl 2 Mg Capsule) 2 mg PO Q6H PRN PRN Reason: Diarrhea Last Admin: 11/17/21 13:40 Dose: 2 mg Documented by: Magnesium Hydroxide (Milk Of Magnesia 30 Ml Oral.Susp) 30 ml PO DAILY PRN PRN Reason: Constipation Modafinil (Modafinil 100 Mg Tablet) 100 mg PO DAILY [facility] Last Admin: 12/23/21 08:47 Dose: 100 mg Documented by: Omeprazole (Omeprazole 40 Mg Capsule.Dr) 40 mg PO DAILY@0630 [facility] Last Admin: 12/23/21 06:25 Dose: 40 mg Documented by: Psyllium Hydrophilic Mucilloid (Psyllium Seed 3.4 Gm Powd.Pack) 3.4 gm PO BEDTIME [facility] Last Admin: 12/22/21 20:07 Dose: Not Given Documented by: Sertraline HCl (Sertraline Hcl 100 Mg Tablet) 200 mg PO BEDTIME [facility] Last Admin: 12/22/21 20:07 Dose: 200 mg Documented by: Sucralfate (Sucralfate 1 Gm Tablet) 1 gm PO TID [facility] Last Admin: 12/23/21 08:47 Dose: 1 gm Documented by: Trazodone HCl (Trazodone Hcl 50 Mg Tablet) 50 mg PO BEDTIME PRN PRN Reason: Insomnia Venlafaxine HCl (Venlafaxine Hcl Er 75 Mg Cap.Er.24h) 75 mg PO DAILY [facility] Last Admin: 12/23/21 08:47 Dose: 75 mg Documented by: Home Medications Medication Instructions Recorded Confirmed Last Taken Type acetaminophen 500 500 mg PO Q6-8H 12/13/21 12/13/21 Unknown History mg tablet PRN (Acetaminophen Extra Strength) Physical Exam Verdana 4l Vital Signs: Verdana 4d Verdana 4d Vital Signs: Verdana 4d Verdana 4Bd Last Vital Signs Verdana 4d Linux Architect New 4d Linux Architect New 4d Temp 99 F 12/23/21 06:00 Linux Architect New 4d Pulse 74 12/23/21 06:00 Linux Architect New 4d Resp 18 12/21/21 18:00 BP 156/86 H 12/23/21 06:00 Pulse Ox 98 12/23/21 06:00 BMI result Body Mass Index 29.1 Neuro: Other: He was alert and awake with normal spontaneity of speech fluency comprehension and vague affect. he was able to comprehend and follow commands. There was no sign of distress. Pupils were round reactive to light about 3 mm. There was no obvious pupillary abnormality or scleral abnormality. Extraocular muscles were intact. Visual correia are full to confrontation. Face was symmetrical. There was no obvious focal weakness. Deep tendon reflexes were trace with flexor plantars. There was mild left hand tremor. He was able to get up and walk around without difficulty. Speech was normal. Results Labs CBC & Chem 7: 12/22/21 14:57 12/22/21 14:57 Labs: Short CBC 12/22/21 Range/Units 14:57 WBC 6.8 (4.8-10.8) X10*3/uL Hgb 12.6 L (14.0-18.0) g/dl Hct 37.5 L (42.0-52.0) % Plt Count 274 (160-400) X10*3/uL BMP 12/22/21 14:57 Sodium 135 Potassium 4.0 Chloride 98 Carbon Dioxide 30 H BUN 14 Creatinine 0.98 Calcium 9.4 Liver Function 12/22/21 Range/Units 14:57 Total Bilirubin 0.4 (0.0-1.0) mg/dL AST 13 (5-37) U/L ALT 24 (0-40) U/L Alkaline Phosphatase 91 D (39-117) U/L Albumin 4.1 (3.5-5.0) g/dL Urine 12/22/21 Range/Units 18:18 Urine Color YELLOW Urine Appearance CLEAR Urine pH 7.0 (5.0-8.0) Ur Specific [place] 1.015 (1.005-1.025) Urine Protein NEG (NEG-TRACE) MG/DL Urine Glucose (UA) NEG (NEG) MG/DL His noncontrast head CT did not reveal any significant abnormality per MRI of brain, according to report, reveals some white matter changes. I have not reviewed the films. 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 This has been progressive resulting in worsening of his overall psychological condition resulting in admission to psychiatric floor. his exam, other than his affect and tremor, did not reveal any significant abnormality. Brain imaging has not revealed any significant pathology though I have not reviewed his brain MRI. Differential diagnosis for this type of syndrome included a primarily psychiatric disease but apparently there was no prior indications of a psychiatric illness. In that case, it is imperative that we rule out alternate pathologies. In this regard, he needed testing to rule out chronic encephalitis or any other condition that could present in this manner. To start with, I would recommend obtaining his brain MRI CD, which I like to review myself. Maybe his family can bring that CD. I would notice that testing for syphilis, HIV, sed rate, and antinuclear antibody screen were negative.In addition, I recommend serum test for Lyme, double-stranded DNA titer , Serum ceruloplasmin level serum copper level and 24 hour urine copper. 24 are urine heavy metal screen is also recommended. We should analyze his spinal fluid by doing a lumbar puncture. As he has significantly worsened, it might be reasonable to obtain a noncontrast brain MRI again for comparison to his MRI in September. This type of comparison can sometime help to determine if he was suff ering from an inflammatory type of condition or not. as far as CSF is concerned, I would send the test for glucose, protein, cells, diff, Gram stain culture and sensitivity, and asked them to hold 1 tube separately. if needed, further testing can be done left to were CSF, depending upon the results of basic testing. Procedures Date of Service Date of Service: 12/23/21
--- NOTE | 2021-12-23 15:22 | P.PNPSI_ITS ---
Subjective Subjective Date of Service: 12/23/21 Reason For Visit: unspecified bipolar and related d/o Interim History: Patient seen and discussed with team. Patient evaluated this morning and upon interview I informed pt that I spoke with the neurologist, Dr. Matias, who also met with pt and reviewed need to r/o encephalopathy with lab work and lumbar puncture. Pt asks, theoretically could that account for everything going on? Pt also asked about c-rp level being elevated. Pt is still surprised that he had a fall, its crazy what happened yesterday. Mood is the same as usual, says he feels about the same. I spoke with pt's , she will obtain CD of imaging from his MRI in September and bring it to the unit on Friday. She says when pt talks with her he will ask her if he dies to get an autopsy because there has to be something wrong. In the milieu, patient is safe and appropriate in behavior. Denies SI/SIB/HI upon inquiry. Denies irritability or assaultive ideation. Says he feels safe. Medication Compliance: Yes Side effects from medications: No Attending Groups: No Review of Systems Acute medical concerns: No Medical Review of Systems: unchanged Mental Status Exam Mental Status Exam Narrative: Patient Appearance:?Fatigued and Appropriate Patient Orientation:?Person, Place, Time and Situation Level of Consciousness:?Alert Patient Behavior:?Appropriate, Talkative, Cooperative and Good Eye Contact Mood Description:?Flat Affect Description:?Flat Patient Cognition Impaired:?No Ability to Follow Directions:?Good Speech Pattern:?Difficulty Finding Words (per pt report), Spontaneous Speech, Soft-Spoken, Mumbled (at times-able to clear when re-directed) and Rapid Memory Description:?Episodic Impaired Hallucinations:?None Delusions:?Not Present Thought Process:?Disoriented (not today, but reported over the weekend intermittently) and Distracted Thought Content:?positive for [place], positive for Circumstantial and positive for Suicidal Ideation (denies) Depressive Symptoms:?Increased Anxiety, Diff. Making Decisions, Loss of Int. in Activity, Hopelessness, Isolating-Friends/Family, Increased Fatigue, Thoughts of /Suicide (denies) and Loss of Energy Judgment:?Fair Diagnostics Vital Signs (24Hr): Vital Signs - 24 hr 12/23/21 06:00 Temperature 99 F Pulse Rate 74 Blood Pressure 156/86 H Pulse Oximetry 98 BMI result Body Mass Index 29.1 Labs Results: 12/22/21 14:57 12/22/21 14:57 Labs: Laboratory Results - last 48 hr 12/17/21 12/22/21 12/22/21 08:32 14:57 14:57 WBC 6.8 RBC 4.29 L Hgb 12.6 L Hct 37.5 L MCV 87.4 MCH 29.4 MCHC 33.6 RDW 14.0 Plt Count 274 MPV 8.7 L Immature Gran % (Auto) 0.4 Neut % (Auto) 74.9 H Lymph % (Auto) 14.5 L [place] % (Auto) 8.5 Eos % (Auto) 1.3 Baso % (Auto) 0.4 Lymph # (Auto) 1.0 L [place] # (Auto) 0.6 Eos # (Auto) 0.1 Baso # (Auto) 0.0 Abs Immat Gran (auto) 0.03 Absolute Neuts (auto) 5.1 Absolute Nucleated RBC 0.000 Nucleated RBC % (auto) 0.0 Sodium 135 Potassium 4.0 Chloride 98 Carbon Dioxide 30 H Anion Gap 11 L BUN 14 Creatinine 0.98 Estim Creat Clear Calc 100.6 Estimated GFR > 60 Random Glucose 114 Calcium 9.4 Total Bilirubin 0.4 AST 13 ALT 24 Alkaline Phosphatase 91 D Total Protein 6.1 L Albumin 4.1 Total Testosterone 474 Fr Testosterone Dialys 38.4 Urine Color Urine Appearance Urine pH Ur Specific [place] Urine Protein Urine Glucose (UA) Urine Ketones Urine Blood Urine Nitrite Ur Leukocyte Esterase 12/22/21 18:18 WBC RBC Hgb Hct MCV MCH MCHC RDW Plt Count MPV Immature Gran % (Auto) Neut % (Auto) Lymph % (Auto) [place] % (Auto) Eos % (Auto) Baso % (Auto) Lymph # (Auto) [place] # (Auto) Eos # (Auto) Baso # (Auto) Abs Immat Gran (auto) Absolute Neuts (auto) Absolute Nucleated RBC Nucleated RBC % (auto) Sodium Potassium Chloride Carbon Dioxide Anion Gap BUN Creatinine Estim Creat Clear Calc Estimated GFR Random Glucose Calcium Total Bilirubin AST ALT Alkaline Phosphatase Total Protein Albumin Total Testosterone Fr Testosterone Dialys Urine Color YELLOW Urine Appearance CLEAR Urine pH 7.0 Ur Specific [place] 1.015 Urine Protein NEG Urine Glucose (UA) NEG Urine Ketones NEG Urine Blood NEG Urine Nitrite NEG Ur Leukocyte Esterase NEG Imaging Radiology Impressions: ITS Impressions Foot X-Ray 11/08/21 17:32 IMPRESSION: Tiny Achilles heel spur. Otherwise unremarkable appearance of the left foot. Cervical Spine X-Ray 11/22/21 14:50 IMPRESSION: No fracture or malalignment. Mild degenerative changes. Forearm X-Ray 11/22/21 14:50 IMPRESSION: No acute fractures or malalignment within the imaged left upper extremity. Hip X-Ray 11/22/21 14:50 IMPRESSION: No acute fractures or malalignment. Humerus X-Ray 11/22/21 14:50 IMPRESSION: No acute fractures or malalignment within the imaged left upper extremity. Shoulder X-Ray 11/22/21 14:50 IMPRESSION: No acute fractures or malalignment within the imaged left upper extremity. Head CT 12/22/21 16:42 IMPRESSION: No acute intracranial pathology. Medications Medications Current Medications Acetaminophen (Acetaminophen 325 Mg Tablet) 650 mg PO Q6H PRN PRN Reason: Headache/Pain Mild Scale (1-3) Al Hydroxide/Mg Hydroxide (Magnesium Hydrox/Alum Hydrox 30 Ml Oral.Susp) 30 ml PO Q6H PRN PRN Reason: Heartburn/Nausea Aripiprazole (Aripiprazole 10 Mg Tablet) 10 mg PO DAILY [facility] Last Admin: 12/23/21 08:47 Dose: 10 mg Documented by: Benztropine Mesylate (Benztropine Mesylate 0.5 Mg Tablet) 0.5 mg PO BID [facility] Last Admin: 12/23/21 08:47 Dose: 0.5 mg Documented by: Enoxaparin Sodium (Enoxaparin Sodium 40 Mg/0.4 Ml Syringe) 40 mg SUBCUT 2100 [facility] Last Admin: 12/22/21 20:07 Dose: 40 mg Documented by: Ferrous Sulfate (Ferrous Sulfate 324 Mg Tablet.Dr) 324 mg PO BEDTIME [facility] Last Admin: 12/22/21 20:07 Dose: 324 mg Documented by: Hydroxyzine HCl (Hydroxyzine Hcl 25 Mg Tablet) 25 mg PO Q6H PRN PRN Reason: Anxiety Last Admin: 12/16/21 22:28 Dose: 25 mg Documented by: Lidocaine (Lidocaine 4 % Patch Adh..Patch) 1 patch TRANSDERMA DAILY [facility]; Protocol Last Admin: 12/23/21 08:47 Dose: Not Given Documented by: Loperamide HCl (Loperamide Hcl 2 Mg Capsule) 2 mg PO Q6H PRN PRN Reason: Diarrhea Last Admin: 11/17/21 13:40 Dose: 2 mg Documented by: Magnesium Hydroxide (Milk Of Magnesia 30 Ml Oral.Susp) 30 ml PO DAILY PRN PRN Reason: Constipation Modafinil (Modafinil 100 Mg Tablet) 100 mg PO DAILY [facility] Last Admin: 12/23/21 08:47 Dose: 100 mg Documented by: Omeprazole (Omeprazole 40 Mg Capsule.Dr) 40 mg PO DAILY@0630 [facility] Last Admin: 12/23/21 06:25 Dose: 40 mg Documented by: Psyllium Hydrophilic Mucilloid (Psyllium Seed 3.4 Gm Powd.Pack) 3.4 gm PO BEDTIME [facility] Last Admin: 12/22/21 20:07 Dose: Not Given Documented by: Sertraline HCl (Sertraline Hcl 100 Mg Tablet) 200 mg PO BEDTIME [facility] Last Admin: 12/22/21 20:07 Dose: 200 mg Documented by: Sucralfate (Sucralfate 1 Gm Tablet) 1 gm PO TID [facility] Last Admin: 12/23/21 15:15 Dose: 1 gm Documented by: Trazodone HCl (Trazodone Hcl 50 Mg Tablet) 50 mg PO BEDTIME PRN PRN Reason: Insomnia Venlafaxine HCl (Venlafaxine Hcl Er 75 Mg Cap.Er.24h) 75 mg PO DAILY [facility] Last Admin: 12/23/21 08:47 Dose: 75 mg Documented by: Allergies Allergies Allergy/AdvReac Type Severity Reaction Status Date / Time No Known Allergies Allergy Unverified 11/07/21 21:23 Assessment & Plan Assessment & Plan (1) Encephalopathy chronic: Status: Acute Code(s): G93.49 - Other encephalopathy (2) MDD (major depressive disorder), recurrent, severe, with psychosis: Status: Acute Code(s): F33.3 - Major depressive disorder, recurrent, severe with psychotic symptoms Plan Continue current plan. Venlafaxine added to target perseverative thoughts. EEG negative for seizure disorder. 12/22: Pt had a fall in his room, episode of orthostasis, fluids encouraged, will obtain head CT and lab work, u/a to rule out pathology for altered mental status, as administrative staff supervisor report pt is forgetful and confused at times. 12/23: Per Neuro consult, I would notice that testing for?syphilis, HIV, sed rate, and? antinuclear antibody screen were negative.In addition, I recommend serum test for Lyme, double-stranded DNA titer, ? Serum ceruloplasmin level serum copper level and 24 hour urine copper. 24 are urine heavy metal screen is also recommended. ? We should analyze his spinal fluid by doing a lumbar puncture.? As he has significantly worsened, it might be reasonable to obtain a noncontrast brain MRI again for comparison to his MRI in September. will bring in CD from MRI on Friday. ? I spent minutes with the patient and/or on the patient floor today, greater than?50% of which was spent counseling/coordinating care. Reason for contiued inpatient stay Substantial Risk for: rapid decompensation and med/psych decompensation
[2021-12-23 18:00] VITALS: BP 118/70; PULSE 80
[2021-12-23] MEDS: Enoxaparin Sodium 40 MG/0.4 ML SYRINGE SUBCUT (21:37)
[2021-12-23] MEDS: Sertraline HCL 100 MG TABLET 200 MG PO (21:37)
[2021-12-23] MEDS: Ferrous Sulfate 324 MG TABLET.DR PO (21:37)
[2021-12-24 06:00] VITALS: BP 148/86; PULSE 73; RESP 18; TEMP 36.1; O2SAT 97
[2021-12-24] MEDS: Omeprazole 40 MG CAPSULE.DR PO (06:03)
[2021-12-24] MEDS: Sucralfate 1 GM TABLET PO ×3 (08:18→21:24)
[2021-12-24] MEDS: Benztropine Mesylate 0.5 MG TABLET PO ×2 (08:18→21:24)
[2021-12-24] MEDS: Venlafaxine HCl ER 75 MG CAP.ER.24H PO (08:18)
[2021-12-24] MEDS: ARIPiprazole 10 MG TABLET PO (08:18)
[2021-12-24] MEDS: modafiniL 100 MG TABLET PO (08:19)
--- NOTE | 2021-12-24 15:31 | HO.PSYCHPN ---
Subjective Subjective Date of Service: 12/24/21 Reason For Visit: unspecified bipolar and related d/o Subjective Notes: Section 7 Healthcare Proxy: Yes Guardianship: No Medical Problems Affecting Mental Status: Yes Interim History: Team reports pt sustained a fall on 12/22-pt reports he made a quick position change to get out of bed to answer a telephone call. Team reports episodic disorientation during the weekend. Today, pt is alert, oriented to person, place, time situation. His speech is fast, difficult to understand at times-when asked to slow down, he is able to speak clearly, softly.. Reviewed medications. Venlafaxine augmentation without reported efficacy-will discontinue. Provigil augmentation without reported efficacy- will discontinue. Sertraline at 200 mg daily without reported efficacy- I am not depressed, but fatigued , decreased to 150 mg daily. Abilify, Benztropine, Trazodone will continue. EEG results from last week indicate a slowing. Neurological evaluation initiated over the weekend which is much appreciated along with careful psychiatric coverage care. MRI scheduled for today. Pt discussed his perceptions of symptoms- denies depression, reports weakness, anxious about what is wrong with me . Review of all diagnostics thus far with pt. I think it is what my mother had (GI carcinoma). Pt reports sleep and appetite are intact, denies pain or GI sx. Pt is very cooperative with care and interested in the process of the eval and outcomes. He was up later in the afternoon and was interactive with team and peers around shift change, smiling, laughing, engaging. Medication Compliance: Yes Side effects from medications: No Attending Groups: No Review of Systems neuro eval in progress Medical Review of Systems: unchanged Review of Systems: Evaluation is continuing. Review of Systems Constitutional: Reports weakness Gastrointestinal: Reports no additional gastrointestinal complaints Musculoskeletal: Reports other (reports gout like pain in L foot) Reports confusion, Reports memory loss and Reports weakness Psychiatric: Reports anxiety, Reports confusion, Reports hopelessness, Reports memory loss and Reports suicidal ideation (denies) Mental Status Exam Mental Status Exam Patient Appearance: Fatigued and Appropriate Patient Orientation: Person, Place, Time and Situation Level of Consciousness: Alert Patient Behavior: Appropriate, Talkative, Cooperative and Good Eye Contact Mood Description: Flat Affect Description: Flat Patient Cognition Impaired: No Ability to Follow Directions: Good Speech Pattern: Difficulty Finding Words (per pt report), Spontaneous Speech, Soft-Spoken, Mumbled (at times-able to clear when re-directed) and Rapid Memory Description: Episodic Impaired Hallucinations: None Delusions: Not Present Thought Process: Disoriented (not today, but reported over the weekend intermittently) and Distracted Thought Content: positive for [place], positive for Circumstantial and positive for Suicidal Ideation (denies) Depressive Symptoms: Increased Anxiety, Diff. Making Decisions, Loss of Int. in Activity, Hopelessness, Isolating-Friends/Family, Increased Fatigue, Thoughts of /Suicide (denies) and Loss of Energy Judgement: Fair Diagnostics Vital Signs (24Hr): Vital Signs - 24 hr 12/23/21 18:00 12/24/21 06:00 Temperature 96.9 F Pulse Rate 80 73 Respiratory Rate 18 Blood Pressure 118/70 148/86 H Pulse Oximetry 97 BMI result Body Mass Index 29.1 Labs Results: 12/22/21 14:57 12/22/21 14:57 Labs: Laboratory Results - last 48 hr 12/22/21 18:18 Urine Color YELLOW Urine Appearance CLEAR Urine pH 7.0 Ur Specific [place] 1.015 Urine Protein NEG Urine Glucose (UA) NEG Urine Ketones NEG Urine Blood NEG Urine Nitrite NEG Ur Leukocyte Esterase NEG Imaging Radiology Impressions: ITS Impressions Foot X-Ray 11/08/21 17:32 IMPRESSION: Tiny Achilles heel spur. Otherwise unremarkable appearance of the left foot. Cervical Spine X-Ray 11/22/21 14:50 IMPRESSION: No fracture or malalignment. Mild degenerative changes. Forearm X-Ray 11/22/21 14:50 IMPRESSION: No acute fractures or malalignment within the imaged left upper extremity. Hip X-Ray 11/22/21 14:50 IMPRESSION: No acute fractures or malalignment. Humerus X-Ray 11/22/21 14:50 IMPRESSION: No acute fractures or malalignment within the imaged left upper extremity. Shoulder X-Ray 11/22/21 14:50 IMPRESSION: No acute fractures or malalignment within the imaged left upper extremity. Head CT 12/22/21 16:42 IMPRESSION: No acute intracranial pathology. Medications Medications Current Medications Acetaminophen (Acetaminophen 325 Mg Tablet) 650 mg PO Q6H PRN PRN Reason: Headache/Pain Mild Scale (1-3) Al Hydroxide/Mg Hydroxide (Magnesium Hydrox/Alum Hydrox 30 Ml Oral.Susp) 30 ml PO Q6H PRN PRN Reason: Heartburn/Nausea Aripiprazole (Aripiprazole 10 Mg Tablet) 10 mg PO DAILY [facility] Last Admin: 12/24/21 08:18 Dose: 10 mg Documented by: Benztropine Mesylate (Benztropine Mesylate 0.5 Mg Tablet) 0.5 mg PO BID [facility] Last Admin: 12/24/21 08:18 Dose: 0.5 mg Documented by: Enoxaparin Sodium (Enoxaparin Sodium 40 Mg/0.4 Ml Syringe) 40 mg SUBCUT 2100 [facility] Last Admin: 12/23/21 21:37 Dose: 40 mg Documented by: Ferrous Sulfate (Ferrous Sulfate 324 Mg Tablet.) 324 mg PO BEDTIME [facility] Last Admin: 12/23/21 21:37 Dose: 324 mg Documented by: Hydroxyzine HCl (Hydroxyzine Hcl 25 Mg Tablet) 25 mg PO Q6H PRN PRN Reason: Anxiety Last Admin: 12/16/21 22:28 Dose: 25 mg Documented by: Lidocaine (Lidocaine 4 % Patch Adh..Patch) 1 patch TRANSDERMA DAILY [facility]; Protocol Last Admin: 12/24/21 08:20 Dose: Not Given Documented by: Loperamide HCl (Loperamide Hcl 2 Mg Capsule) 2 mg PO Q6H PRN PRN Reason: Diarrhea Last Admin: 11/17/21 13:40 Dose: 2 mg Documented by: Magnesium Hydroxide (Milk Of Magnesia 30 Ml Oral.Susp) 30 ml PO DAILY PRN PRN Reason: Constipation Modafinil (Modafinil 100 Mg Tablet) 100 mg PO DAILY [facility] Last Admin: 12/24/21 08:19 Dose: 100 mg Documented by: Omeprazole (Omeprazole 40 Mg Capsule.) 40 mg PO DAILY@0630 [facility] Last Admin: 12/24/21 06:03 Dose: 40 mg Documented by: Psyllium Hydrophilic Mucilloid (Psyllium Seed 3.4 Gm Powd.Pack) 3.4 gm PO BEDTIME [facility] Last Admin: 12/23/21 21:37 Dose: Not Given Documented by: Sertraline HCl (Sertraline Hcl 100 Mg Tablet) 200 mg PO BEDTIME [facility] Last Admin: 12/23/21 21:37 Dose: 200 mg Documented by: Sucralfate (Sucralfate 1 Gm Tablet) 1 gm PO TID [facility] Last Admin: 12/24/21 14:45 Dose: 1 gm Documented by: Trazodone HCl (Trazodone Hcl 50 Mg Tablet) 50 mg PO BEDTIME PRN PRN Reason: Insomnia Venlafaxine HCl (Venlafaxine Hcl Er 75 Mg Cap.Er.24h) 75 mg PO DAILY [facility] Last Admin: 12/24/21 08:18 Dose: 75 mg Documented by: Allergies Allergies Allergy/AdvReac Type Severity Reaction Status Date / Time No Known Allergies Allergy Unverified 11/07/21 21:23 Assessment & Plan Assessment & Plan (1) Encephalopathy chronic: Status: Acute Code(s): G93.49 - Other encephalopathy Assessment and Plan: 56 years old man who apparently has developed a psychiatric type of syndrome in summer. This has been progressive resulting in worsening of his overall psychological condition resulting in admission to psychiatric floor. his exam, other than his affect and tremor, did not reveal any significant abnormality. Brain imaging has not revealed any significant pathology though I have not reviewed his brain MRI. Differential diagnosis for this type of syndrome included a primarily psychiatric disease but apparently there was no prior indications of a psychiatric illness. In that case, it is imperative that we rule out alternate pathologies. In this regard, he needed testing to rule out chronic encephalitis or any other condition that could present in this manner. To start with, I would recommend obtaining his brain MRI CD, which I like to review myself. Maybe his family can bring that CD. I would notice that testing for syphilis, HIV, sed rate, and antinuclear antibody screen were negative.In addition, I recommend serum test for Lyme, double-stranded DNA titer, Serum ceruloplasmin level serum copper level and 24 hour urine copper. 24 are urine heavy metal screen is also recommended. We should analyze his spinal fluid by doing a lumbar puncture. As he has significantly worsened, it might be reasonable to obtain a noncontrast brain MRI again for comparison to his MRI in September. This type of comparison can sometime help to determine if he was suffering from an inflammatory type of condition or not. as far as CSF is concerned, I would send the test for glucose, protein, cells, diff, Gram stain culture and sensitivity, and asked them to hold 1 tube separately. if needed, further testing can be done left to were CSF, depending upon the results of basic testing. Plan 12/24/21 Gerry has presented over the weekend with a fall, episodic confusion, anergy, fatigue. Neurological evaluation initiated. -Discontinue Venlafaxine-pt reports no response -Discontinue Provigil-pt reports no response -Decrease Sertraline to 150 mg daily -Continue Abilify, Benztropine, Trazodone prn -Neurological consult much appreciated. MRI, LP pending. -Weekend psychiatric care/coverage much appreciated. -Per neuro consult recommendations... --Lyme titre --Ceruloplasmin serum --Serum copper --24 hour urine-copper and heavy metals Call to [facility] to request MRI CD Films Pt reports sx gout in L foot- uric acid level 12/25 Re-initiate Losartan 12.5 mg daily (hx 50 mg daily on admission) I spent 90 minutes with the patient and/or on the patient floor today, greater than?50% of which was spent counseling/coordinating care. Patient educated on: diagnosis, medication risk/benefits, therapeutic strategies and medical condition Informed Consent: understands and further education needed Reason for contiued inpatient stay Substantial Risk for: inability to function, rapid decompensation and med/psych decompensation
[2021-12-24 18:00] VITALS: BP 131/81; PULSE 59; RESP 18; TEMP 36.4; O2SAT 96
[2021-12-24] MEDS: Ferrous Sulfate 324 MG TABLET.DR PO (21:24)
[2021-12-24] MEDS: Enoxaparin Sodium 40 MG/0.4 ML SYRINGE SUBCUT (21:24)
[2021-12-24] MEDS: Sertraline HCL 50 MG TABLET 150 MG PO (21:24)
[2021-12-25] MEDS: Omeprazole 40 MG CAPSULE.DR PO (05:54)
[2021-12-25 08:59] LABS: Uric Acid 4.2 mg/dL (3.4-7.0)
[2021-12-25 09:00] VITALS: BP 120/83; PULSE 83; RESP 16; TEMP 37.1; O2SAT 97
[2021-12-25] MEDS: Losartan Potassium 25 MG TABLET 12.5 MG PO (10:00)
[2021-12-25] MEDS: ARIPiprazole 10 MG TABLET PO (10:00)
[2021-12-25] MEDS: Benztropine Mesylate 0.5 MG TABLET PO ×2 (10:00→19:25)
[2021-12-25] MEDS: Sucralfate 1 GM TABLET PO ×3 (10:00→19:25)
[2021-12-25 16:32] VITALS: BP 120/73; PULSE 70; RESP 16; TEMP 36.6; O2SAT 96
--- NOTE | 2021-12-25 16:59 | P.PNPSI_ITS ---
Subjective Subjective Date of Service: 12/25/21 Reason For Visit: unspecified bipolar and related d/o Subjective Notes: Section 7 Interim History: Gerry completed MRI with contrast today. He will begin 24 hour urines on 12/26 for heavy metals and faby. Neuro eval continues-no significant issues identified as of this time. Pt's visited today, bringing MRI films from 10/07 for comparison. met with pt and Zander KIM. She is very concerned and expressed to pt how much he is missed by family and how he is wanted at home. She did set limits and parameters on the length of his hospitalization, telling him he needed to participate, try and allow treatment. We will schedule another family meeting for 12/27. Met with pt after the visit. He was talkative, with some instances of mumbling and rapid speech but able to be understood and tw asked him to repeat himself three times and he was able to slow his speech down and articulate clearly. When asked about the visit, Gerry was blunted in expression, not wanting to reconnect with extended family, friends, wanting to go home, but not wanting to frighten the children. We learned from pt's that she is very interested in pt's progress-he had downplayed this, wants him home and back with the family. Pt was asked to sign a conditional voluntary to continue treatment, however he refused stating he feared we would get rid of me if he did not have the court date upcoming. Education and support offered. Denies new symptoms today-believes his issue is GI, however, refuses consultation with GI. I think I have what my mother had. Discussed his sister and her hx of panic attacks-unable to relate except to say I guess we both got the crazy gene-laughed and joked about this after. Medication Compliance: Yes Side effects from medications: No Attending Groups: Yes Review of Systems Acute medical concerns: No Medical Review of Systems: unchanged Review of Systems Constitutional: Reports weakness Gastrointestinal: Reports no additional gastrointestinal complaints Musculoskeletal: Reports other (reports gout like pain in L foot) Reports confusion, Reports memory loss and Reports weakness Psychiatric: Reports anxiety, Reports confusion, Reports hopelessness, Reports memory loss and Reports suicidal ideation (denies) Mental Status Exam Mental Status Exam Narrative: Patient Appearance:?Fatigued and Appropriate Patient Orientation:?Person, Place, Time and Situation Level of Consciousness:?Alert Patient Behavior:?Appropriate, Talkative, Cooperative and Good Eye Contact Mood Description:?Flat Affect Description:?Flat Patient Cognition Impaired:?No Ability to Follow Directions:?Good Speech Pattern:?Difficulty Finding Words (per pt report), Spontaneous Speech, Soft-Spoken, Mumbled (at times-able to clear when re-directed) and Rapid Memory Description:?Episodic Impaired Hallucinations:?None Delusions:?Not Present Thought Process:?Disoriented (not today, but reported over the weekend intermittently) and Distracted Thought Content:?positive for [place], positive for Circumstantial and positive for Suicidal Ideation (denies) Depressive Symptoms:?Increased Anxiety, Diff. Making Decisions, Loss of Int. in Activity, Hopelessness, Isolating-Friends/Family, Increased Fatigue, Thoughts of /Suicide (denies) and Loss of Energy Judgement:?Fair Diagnostics Vital Signs (24Hr): Vital Signs - 24 hr 12/24/21 18:00 12/25/21 09:00 12/25/21 16:32 Temperature 97.5 F 98.8 F 98 F Pulse Rate 59 83 70 Respiratory Rate 18 16 16 Blood Pressure 131/81 120/83 120/73 Pulse Oximetry 96 97 96 BMI result Body Mass Index 29.1 Labs Results: 12/22/21 14:57 12/22/21 14:57 Labs: Laboratory Results - last 48 hr 12/25/21 08:08 Uric Acid 4.2 Imaging Radiology Impressions: ITS Impressions Foot X-Ray 11/08/21 17:32 IMPRESSION: Tiny Achilles heel spur. Otherwise unremarkable appearance of the left foot. Cervical Spine X-Ray 11/22/21 14:50 IMPRESSION: No fracture or malalignment. Mild degenerative changes. Forearm X-Ray 11/22/21 14:50 IMPRESSION: No acute fractures or malalignment within the imaged left upper extremity. Hip X-Ray 11/22/21 14:50 IMPRESSION: No acute fractures or malalignment. Humerus X-Ray 11/22/21 14:50 IMPRESSION: No acute fractures or malalignment within the imaged left upper extremity. Shoulder X-Ray 11/22/21 14:50 IMPRESSION: No acute fractures or malalignment within the imaged left upper extremity. Head CT 12/22/21 16:42 IMPRESSION: No acute intracranial pathology. Hand X-Ray 12/25/21 08:38 IMPRESSION: No soft tissue foreign body seen. Brain MRI 12/25/21 09:20 IMPRESSION: No acute intracranial findings. No acute infarcts. There is mild chronic microangiopathy. No pathologic enhancement. Medications Medications Current Medications Acetaminophen (Acetaminophen 325 Mg Tablet) 650 mg PO Q6H PRN PRN Reason: Headache/Pain Mild Scale (1-3) Al Hydroxide/Mg Hydroxide (Magnesium Hydrox/Alum Hydrox 30 Ml Oral.Susp) 30 ml PO Q6H PRN PRN Reason: Heartburn/Nausea Aripiprazole (Aripiprazole 10 Mg Tablet) 10 mg PO DAILY [facility] Last Admin: 12/25/21 10:00 Dose: 10 mg Documented by: Benztropine Mesylate (Benztropine Mesylate 0.5 Mg Tablet) 0.5 mg PO BID [facility] Last Admin: 12/25/21 10:00 Dose: 0.5 mg Documented by: Enoxaparin Sodium (Enoxaparin Sodium 40 Mg/0.4 Ml Syringe) 40 mg SUBCUT 2100 [facility] Last Admin: 12/24/21 21:24 Dose: 40 mg Documented by: Ferrous Sulfate (Ferrous Sulfate 324 Mg Tablet.) 324 mg PO BEDTIME [facility] Last Admin: 12/24/21 21:24 Dose: 324 mg Documented by: Hydroxyzine HCl (Hydroxyzine Hcl 25 Mg Tablet) 25 mg PO Q6H PRN PRN Reason: Anxiety Last Admin: 12/16/21 22:28 Dose: 25 mg Documented by: Lidocaine (Lidocaine 4 % Patch Adh..Patch) 1 patch TRANSDERMA DAILY [facility]; Protocol Last Admin: 12/25/21 10:02 Dose: Not Given Documented by: Loperamide HCl (Loperamide Hcl 2 Mg Capsule) 2 mg PO Q6H PRN PRN Reason: Diarrhea Last Admin: 11/17/21 13:40 Dose: 2 mg Documented by: Losartan Potassium (Losartan Potassium 25 Mg Tablet) 12.5 mg PO DAILY [facility]; Protocol Last Admin: 12/25/21 10:00 Dose: 12.5 mg Documented by: Magnesium Hydroxide (Milk Of Magnesia 30 Ml Oral.Susp) 30 ml PO DAILY PRN PRN Reason: Constipation Omeprazole (Omeprazole 40 Mg Capsule.) 40 mg PO DAILY@0630 [facility] Last Admin: 12/25/21 05:54 Dose: 40 mg Documented by: Psyllium Hydrophilic Mucilloid (Psyllium Seed 3.4 Gm Powd.Pack) 3.4 gm PO BEDTIME [facility] Last Admin: 12/24/21 21:24 Dose: 3.4 gm Documented by: Sertraline HCl (Sertraline Hcl 50 Mg Tablet) 150 mg PO BEDTIME [facility] Last Admin: 12/24/21 21:24 Dose: 150 mg Documented by: Sucralfate (Sucralfate 1 Gm Tablet) 1 gm PO TID [facility] Last Admin: 12/25/21 14:18 Dose: 1 gm Documented by: Trazodone HCl (Trazodone Hcl 50 Mg Tablet) 50 mg PO BEDTIME PRN PRN Reason: Insomnia Allergies Allergies Allergy/AdvReac Type Severity Reaction Status Date / Time No Known Allergies Allergy Unverified 11/07/21 21:23 Assessment & Plan Assessment & Plan (1) Encephalopathy chronic: Status: Acute Code(s): G93.49 - Other encephalopathy Assessment and Plan: 56 years old man who apparently has developed a psychiatric type of syndrome in summer. This has been progressive resulting in worsening of his overall psychological condition resulting in admission to psychiatric floor. his exam, other than his affect and tremor, did not reveal any significant abnormality. Brain imaging has not revealed any significant pathology though I have not reviewed his brain MRI. Differential diagnosis for this type of syndrome included a primarily psychiatric disease but apparently there was no prior indications of a psychiatric illness. In that case, it is imperative that we rule out alternate pathologies. In this regard, he needed testing to rule out chronic encephalitis or any other condition that could present in this manner. To start with, I would recommend obtaining his brain MRI CD, which I like to review myself. Maybe his family can bring that CD. I would notice that testing for syphilis, HIV, sed rate, and antinuclear antibody screen were negative.In addition, I recommend serum test for Lyme, double-stranded DNA titer, Serum ceruloplasmin level serum copper level and 24 hour urine copper. 24 are urine heavy metal screen is also recommended. We should analyze his spinal fluid by doing a lumbar puncture. As he has significantly worsened, it might be reasonable to obtain a noncontrast brain MRI again for comparison to his MRI in September. This type of comparison can sometime help to determine if he was suffering from an inflammatory type of condition or not. as far as CSF is concerned, I would send the test for glucose, protein, cells, diff, Gram stain culture and sensitivity, and asked them to hold 1 tube separately. if needed, further testing can be done left to were CSF, depending upon the results of basic testing. (2) MDD (major depressive disorder), recurrent, severe, with psychosis: Status: Acute Code(s): F33.3 - Major depressive disorder, recurrent, severe with psychotic symptoms Plan -Continue medical evaluation. -Family meeting 12/27/21 with pt and . -Continue current regime I spent 25 minutes with the patient and/or on the patient floor today, greater than?50% of which was spent counseling/coordinating care. Patient educated on: diagnosis, medication risk/benefits, therapeutic strategies and medical condition Informed Consent: understands and further education needed Reason for contiued inpatient stay Substantial Risk for: inability to function, rapid decompensation and med/psych decompensation
[2021-12-25] MEDS: Enoxaparin Sodium 40 MG/0.4 ML SYRINGE SUBCUT (19:24)
[2021-12-25] MEDS: Ferrous Sulfate 324 MG TABLET.DR PO (19:25)
[2021-12-25] MEDS: Sertraline HCL 50 MG TABLET 150 MG PO (19:25)
[2021-12-26] MEDS: Omeprazole 40 MG CAPSULE.DR PO (06:32)
[2021-12-26 08:34] VITALS: BP 116/73; PULSE 88; TEMP 36.6; O2SAT 98
[2021-12-26] MEDS: ARIPiprazole 10 MG TABLET PO (08:58)
[2021-12-26] MEDS: Losartan Potassium 25 MG TABLET 12.5 MG PO (08:58)
[2021-12-26] MEDS: Benztropine Mesylate 0.5 MG TABLET PO ×2 (08:58→20:09)
[2021-12-26] MEDS: Sucralfate 1 GM TABLET PO ×3 (08:59→20:09)
--- NOTE | 2021-12-26 14:56 | P.PNPSI_ITS ---
Subjective Subjective Date of Service: 12/26/21 Reason For Visit: unspecified bipolar and related d/o Subjective Notes: Section 7 Healthcare Proxy: No Guardianship: No Medical Problems Affecting Mental Status: Yes Interim History: The patient has been anxious isolative mostly lying in bed. Seem perplexed somewhat distressed somatically concerned feels like his brain is not processing material. Case discussed with Neurology patient seen chart reviewed case reviewed with social Work treatment team He is withdrawn periods of slowed mentation asking the same question over and over again appears at times to have difficulty with executive functioning. Some perplexed [place] left forearm and hand tremor question other abnormal movements patient feels at times balance difficulties Medication Compliance: Yes Side effects from medications: Yes Attending Groups: No Review of Systems Acute medical concerns: Yes Staying in bed withdrawn was recently seen by Neurology Medical Review of Systems: unchanged Review of Systems Constitutional: Reports daytime sleepiness, Reports fatigue, Reports lethargy and Reports weakness Reports system reviewed and no additional complaints, except as documented Cardiovascular: Reports as per HPI Respiratory: Reports no additional respiratory complaints Musculoskeletal: Reports muscle cramps and Reports other (reports gout like pain in L foot) Reports Neuro-related abnormal movements, Reports confusion, Reports memory loss and Reports weakness Psychiatric: Reports anxiety, Reports confusion, Reports hopelessness, Reports memory loss and Reports suicidal ideation (denies) Endocrine: Reports fatigue Hematologic/Lymphatic: Reports no additional hematologic/lymphatic complaints Mental Status Exam Mental Status Exam Narrative: Patient Appearance:?Fatigued and Appropriate Patient Orientation:?Person, Place Level of Consciousness:?Alert Patient Behavior:?withdrawn Mood Description:?Flat Affect Description:?Flat Patient Cognition Impaired:?poor attention Ability to Follow Directions:?Good Speech Pattern:?Difficulty Finding Words with slowed mentation Memory Description:?Episodic Impaired Hallucinations:?None Delusions:?Not Present Thought Process:?Disoriented intermittently Distracted can be concrete Thought Content:?positive for [place], positive for Circumstantial and positive for Suicidal Ideation (denies) Depressive Symptoms:?Increased Anxiety, Diff. Making Decisions, Loss of Int. in Activity, Hopelessness, Isolating-Friends/Family, Increased Fatigue, Thoughts of /Suicide (denies) and Loss of Energy Judgement:?Fair Diagnostics Vital Signs (24Hr): Vital Signs - 24 hr 12/25/21 16:32 12/26/21 08:34 Temperature 98 F 97.9 F Pulse Rate 70 88 Respiratory Rate 16 Blood Pressure 120/73 116/73 Pulse Oximetry 96 98 BMI result Body Mass Index 29.1 Labs Results: 12/27/21 08:11 12/22/21 14:57 Labs: Laboratory Results - last 48 hr 12/25/21 08:08 Uric Acid 4.2 Imaging Radiology Impressions: ITS Impressions Foot X-Ray 11/08/21 17:32 IMPRESSION: Tiny Achilles heel spur. Otherwise unremarkable appearance of the left foot. Cervical Spine X-Ray 11/22/21 14:50 IMPRESSION: No fracture or malalignment. Mild degenerative changes. Forearm X-Ray 11/22/21 14:50 IMPRESSION: No acute fractures or malalignment within the imaged left upper extremity. Hip X-Ray 11/22/21 14:50 IMPRESSION: No acute fractures or malalignment. Humerus X-Ray 11/22/21 14:50 IMPRESSION: No acute fractures or malalignment within the imaged left upper extremity. Shoulder X-Ray 11/22/21 14:50 IMPRESSION: No acute fractures or malalignment within the imaged left upper extremity. Head CT 12/22/21 16:42 IMPRESSION: No acute intracranial pathology. Hand X-Ray 12/25/21 08:38 IMPRESSION: No soft tissue foreign body seen. Brain MRI 12/25/21 09:20 IMPRESSION: No acute intracranial findings. No acute infarcts. There is mild chronic microangiopathy. No pathologic enhancement. Medications Medications Current Medications Acetaminophen (Acetaminophen 325 Mg Tablet) 650 mg PO Q6H PRN PRN Reason: Headache/Pain Mild Scale (1-3) Al Hydroxide/Mg Hydroxide (Magnesium Hydrox/Alum Hydrox 30 Ml Oral.Susp) 30 ml PO Q6H PRN PRN Reason: Heartburn/Nausea Aripiprazole (Aripiprazole 10 Mg Tablet) 10 mg PO DAILY [facility] Last Admin: 12/26/21 08:58 Dose: 10 mg Documented by: Benztropine Mesylate (Benztropine Mesylate 0.5 Mg Tablet) 0.5 mg PO BID [facility] Last Admin: 12/26/21 08:58 Dose: 0.5 mg Documented by: Enoxaparin Sodium (Enoxaparin Sodium 40 Mg/0.4 Ml Syringe) 40 mg SUBCUT 2100 [facility] Last Admin: 12/25/21 19:24 Dose: 40 mg Documented by: Ferrous Sulfate (Ferrous Sulfate 324 Mg Tablet.Dr) 324 mg PO BEDTIME [facility] Last Admin: 12/25/21 19:25 Dose: 324 mg Documented by: Hydroxyzine HCl (Hydroxyzine Hcl 25 Mg Tablet) 25 mg PO Q6H PRN PRN Reason: Anxiety Last Admin: 12/16/21 22:28 Dose: 25 mg Documented by: Lidocaine (Lidocaine 4 % Patch Adh..Patch) 1 patch TRANSDERMA DAILY [facility]; Protocol Last Admin: 12/26/21 09:00 Dose: Not Given Documented by: Loperamide HCl (Loperamide Hcl 2 Mg Capsule) 2 mg PO Q6H PRN PRN Reason: Diarrhea Last Admin: 11/17/21 13:40 Dose: 2 mg Documented by: Losartan Potassium (Losartan Potassium 25 Mg Tablet) 12.5 mg PO DAILY [facility]; Protocol Last Admin: 12/26/21 08:58 Dose: 12.5 mg Documented by: Magnesium Hydroxide (Milk Of Magnesia 30 Ml Oral.Susp) 30 ml PO DAILY PRN PRN Reason: Constipation Omeprazole (Omeprazole 40 Mg Capsule.) 40 mg PO DAILY@0630 [facility] Last Admin: 12/26/21 06:32 Dose: 40 mg Documented by: Psyllium Hydrophilic Mucilloid (Psyllium Seed 3.4 Gm Powd.Pack) 3.4 gm PO BEDTIME [facility] Last Admin: 12/25/21 19:26 Dose: 3.4 gm Documented by: Sertraline HCl (Sertraline Hcl 50 Mg Tablet) 150 mg PO BEDTIME [facility] Last Admin: 12/25/21 19:25 Dose: 150 mg Documented by: Sucralfate (Sucralfate 1 Gm Tablet) 1 gm PO TID [facility] Last Admin: 12/26/21 14:45 Dose: 1 gm Documented by: Trazodone HCl (Trazodone Hcl 50 Mg Tablet) 50 mg PO BEDTIME PRN PRN Reason: Insomnia Allergies Allergies Allergy/AdvReac Type Severity Reaction Status Date / Time No Known Allergies Allergy Unverified 11/07/21 21:23 Assessment & Plan Assessment & Plan (1) Encephalopathy chronic: Status: Acute Code(s): G93.49 - Other encephalopathy Assessment and Plan: 56 years old man who apparently has developed a psychiatric type of syndrome in summer. This has been progressive resulting in worsening of his overall psychological condition resulting in admission to psychiatric floor. his exam, other than his affect and tremor, did not reveal any significant abnormality. Brain imaging has not revealed any significant pathology though I have not reviewed his brain MRI. Differential diagnosis for this type of syndrome included a primarily psychiatric disease but apparently there was no prior indications of a psychiatric illness. In that case, it is imperative that we rule out alternate pathologies. In this regard, he needed testing to rule out chronic encephalitis or any other condition that could present in this manner. To start with, I would recommend obtaining his brain MRI CD, which I like to review myself. Maybe his family can bring that CD. I would notice that testing for syphilis, HIV, sed rate, and antinuclear antibody screen were negative.In addition, I recommend serum test for Lyme, double-stranded DNA titer, Serum ceruloplasmin level serum copper level and 24 hour urine copper. 24 are urine heavy metal screen is also recommended. We should analyze his spinal fluid by doing a lumbar puncture. As he has significantly worsened, it might be reasonable to obtain a noncontrast brain MRI again for comparison to his MRI in September. This type of comparison can sometime help to determine if he was suffering from an inflammatory type of condition or not. as far as CSF is concerned, I would send the test for glucose, protein, cells, diff, Gram stain culture and sensitivity, and asked them to hold 1 tube separately. if needed, further testing can be done left to were CSF, depending upon the results of basic testing. 12/26/2021 above reviewed neurology note case extensively discussed with Dr. Matias Lumbar puncture ordered with testing including for NMDA receptor some additional labs reviewed and ordered Repeated discussion with patient regarding medical need for lumbar puncture certainly need a clear picture neurologically before more aggressive interventions (2) MDD (major depressive disorder), recurrent, severe, with psychosis: Status: Acute Code(s): F33.3 - Major depressive disorder, recurrent, severe with psychotic symptoms Assessment and Plan: Continue sertraline and Abilify patient depressed withdrawn anxious and ruminating seems to have difficulty taking in information at times and weighing possible consequences MRI reviewed with patient recommendations for lumbar puncture Plan -Continue medical evaluation. Lumbar puncture ordered after discussion with Neurology discussed with patient continues to be quite withdrawn. Anxious and depressed when seen left hand tremor perplexed difficulty taking in information call placed to patient's I spent _45 minutes with the patient and/or on the patient floor today, greater than?50% of which was spent counseling/coordinating care. Reason for contiued inpatient stay Substantial Risk for: harm to self, rapid decompensation and med/psych decompensation
[2021-12-26 18:00] VITALS: BP 102/61; PULSE 98; TEMP 37.1; O2SAT 96
[2021-12-26] MEDS: Ferrous Sulfate 324 MG TABLET.DR PO (20:09)
[2021-12-26] MEDS: Sertraline HCL 50 MG TABLET 150 MG PO (20:09)
--- NOTE | 2021-12-26 21:04 | PC.NURSE ---
Patient started 24 hour urine this morning at 0800. Jug is in container of ice which has been checked q 2 hours. Urine collection will end 12/27/21 at 0800. Patient has been cooperative with collection. Patient unmotivated to get out of bed today. Declined to go to groups. Isolative to room with excessive daytime sleepiness noted. Med compliant and compliant with care.
[2021-12-27] VITALS (8 sets, daily range): BP systolic 110–134; BP diastolic 73–80; PULSE 62–81; RESP 16–20; TEMP 36.7–37.1; O2SAT 97–98
--- NOTE | 2021-12-27 05:49 | PC.NURSE ---
12/27/21 call from X-ray department at 5:30AM to inquire about Gerry Samianox hold since 12/26 said protocol is for hold for 3 days , [place] text sent to Dr. Inman . For new orders to hold for 3 days and reschedule lumbar Puncture. Waiting for reply .
[2021-12-27] MEDS: Omeprazole 40 MG CAPSULE.DR PO (06:13)
[2021-12-27 08:20] LABS: Platelet Count 244 X10*3/uL (160-400)
[2021-12-27 08:27] LABS: INTERNATIONAL NORM RATIO 1.1 (0.9-1.1); Prothrombin Time 12.1 SEC (9.9-13.0)
[2021-12-27 08:30] LABS: Partial Thromboplastin Time 38.5 SEC (24.1-38.0)
[2021-12-27] MEDS: Losartan Potassium 25 MG TABLET 12.5 MG PO (08:39)
[2021-12-27] MEDS: ARIPiprazole 5 MG TABLET PO (08:39)
[2021-12-27] MEDS: Sucralfate 1 GM TABLET PO (08:40)
[2021-12-27 08:59] LABS: Erythrocyte Sedimentation Rate 13 MM/HR (0-15)
[2021-12-27 10:23] LABS: Rheumatoid Factor < 15.0 IU/mL (<15.0)
--- NOTE | 2021-12-27 14:30 | P.PNPSI_ITS ---
Subjective Subjective Date of Service: 12/27/21 Reason For Visit: unspecified bipolar and related d/o Subjective Notes: Section 7 Interim History: Family meeting rescheduled to 01/01 per 's request. Pt very anxious and ambivalent about lumbar puncture today. Offered processing and support. Review of rationale for procedure and testing. Dr. Henny bojorquez sed this with pt as well. Pt focused on what if you cannot find out what is wrong with me.? Discussed treatments for depression if pt continues with clearing via medical testing. I know it isn't depression . Encouraged pt to share thoughts regarding symptoms. Discussed ECT option if medically cleared. Medication Compliance: Yes Side effects from medications: No Attending Groups: No Review of Systems Acute medical concerns: No Medical Review of Systems: unchanged Review of Systems Constitutional: Reports daytime sleepiness, Reports fatigue, Reports lethargy and Reports weakness Reports system reviewed and no additional complaints, except as documented Cardiovascular: Reports as per HPI Respiratory: Reports no additional respiratory complaints Musculoskeletal: Reports muscle cramps and Reports other (reports gout like pain in L foot) Reports Neuro-related abnormal movements, Reports confusion, Reports memory loss and Reports weakness Psychiatric: Reports anxiety, Reports confusion, Reports hopelessness, Reports memory loss and Reports suicidal ideation (denies) Endocrine: Reports fatigue Hematologic/Lymphatic: Reports no additional hematologic/lymphatic complaints Mental Status Exam Mental Status Exam Narrative: Patient Appearance:?Fatigued and Appropriate Patient Orientation:?Person, Place Level of Consciousness:?Alert Patient Behavior:?withdrawn Mood Description:?Flat Affect Description:?Flat Patient Cognition Impaired:?poor attention Ability to Follow Directions:?Good Speech Pattern:?Difficulty Finding Words with slowed mentation Memory Description:?Episodic Impaired Hallucinations:?None Delusions:?Not Present Thought Process:?Disoriented intermittently Distracted can be concrete Thought Content:?positive for [place], positive for Circumstantial and positive for Suicidal Ideation (denies) Depressive Symptoms:?Increased Anxiety, Diff. Making Decisions, Loss of Int. in Activity, Hopelessness, Isolating-Friends/Family, Increased Fatigue, Thoughts of /Suicide (denies) and Loss of Energy Judgement:?Fair Diagnostics Vital Signs (24Hr): Vital Signs - 24 hr 12/26/21 18:00 12/27/21 06:00 Temperature 98.8 F 98.4 F Pulse Rate 98 66 Respiratory Rate 16 Blood Pressure 102/61 127/73 Pulse Oximetry 96 97 BMI result Body Mass Index 29.1 Labs Results: 12/27/21 08:11 12/22/21 14:57 Labs: Laboratory Results - last 48 hr 12/27/21 12/27/21 12/27/21 08:11 08:11 08:11 Plt Count 244 ESR 13 PT 12.1 INR 1.1 APTT 38.5 H Total Creatine Kinase Rheumatoid Factor 12/27/21 08:11 Plt Count ESR PT INR APTT Total Creatine Kinase 38 Rheumatoid Factor < 15.0 Imaging Radiology Impressions: ITS Impressions Foot X-Ray 11/08/21 17:32 IMPRESSION: Tiny Achilles heel spur. Otherwise unremarkable appearance of the left foot. Cervical Spine X-Ray 11/22/21 14:50 IMPRESSION: No fracture or malalignment. Mild degenerative changes. Forearm X-Ray 11/22/21 14:50 IMPRESSION: No acute fractures or malalignment within the imaged left upper extremity. Hip X-Ray 11/22/21 14:50 IMPRESSION: No acute fractures or malalignment. Humerus X-Ray 11/22/21 14:50 IMPRESSION: No acute fractures or malalignment within the imaged left upper extremity. Shoulder X-Ray 11/22/21 14:50 IMPRESSION: No acute fractures or malalignment within the imaged left upper extremity. Head CT 12/22/21 16:42 IMPRESSION: No acute intracranial pathology. Hand X-Ray 12/25/21 08:38 IMPRESSION: No soft tissue foreign body seen. Brain MRI 12/25/21 09:20 IMPRESSION: No acute intracranial findings. No acute infarcts. There is mild chronic microangiopathy. No pathologic enhancement. Medications Medications Current Medications Acetaminophen (Acetaminophen 325 Mg Tablet) 650 mg PO Q6H PRN PRN Reason: Headache/Pain Mild Scale (1-3) Al Hydroxide/Mg Hydroxide (Magnesium Hydrox/Alum Hydrox 30 Ml Oral.Susp) 30 ml PO Q6H PRN PRN Reason: Heartburn/Nausea Aripiprazole (Aripiprazole 5 Mg Tablet) 5 mg PO DAILY [facility] Last Admin: 12/27/21 08:39 Dose: 5 mg Documented by: Enoxaparin Sodium (Enoxaparin Sodium 40 Mg/0.4 Ml Syringe) 40 mg SUBCUT 2100 [facility] Last Admin: 12/25/21 19:24 Dose: 40 mg Documented by: Ferrous Sulfate (Ferrous Sulfate 324 Mg Tablet.) 324 mg PO BEDTIME [facility] Last Admin: 12/26/21 20:09 Dose: 324 mg Documented by: Hydroxyzine HCl (Hydroxyzine Hcl 25 Mg Tablet) 25 mg PO Q6H PRN PRN Reason: Anxiety Last Admin: 12/16/21 22:28 Dose: 25 mg Documented by: Lidocaine (Lidocaine 4 % Patch Adh..Patch) 1 patch TRANSDERMA DAILY [facility]; Protocol Last Admin: 12/27/21 08:40 Dose: Not Given Documented by: Loperamide HCl (Loperamide Hcl 2 Mg Capsule) 2 mg PO Q6H PRN PRN Reason: Diarrhea Last Admin: 11/17/21 13:40 Dose: 2 mg Documented by: Losartan Potassium (Losartan Potassium 25 Mg Tablet) 12.5 mg PO DAILY [facility]; Protocol Last Admin: 12/27/21 08:39 Dose: 12.5 mg Documented by: Magnesium Hydroxide (Milk Of Magnesia 30 Ml Oral.Susp) 30 ml PO DAILY PRN PRN Reason: Constipation Omeprazole (Omeprazole 40 Mg Capsule.) 40 mg PO DAILY@0630 [facility] Last Admin: 12/27/21 06:13 Dose: 40 mg Documented by: Psyllium Hydrophilic Mucilloid (Psyllium Seed 3.4 Gm Powd.Pack) 3.4 gm PO BEDTIME [facility] Last Admin: 12/26/21 20:09 Dose: Not Given Documented by: Sertraline HCl (Sertraline Hcl 50 Mg Tablet) 150 mg PO BEDTIME [facility] Last Admin: 12/26/21 20:09 Dose: 150 mg Documented by: Sucralfate (Sucralfate 1 Gm Tablet) 1 gm PO TID [facility] Last Admin: 12/27/21 08:40 Dose: 1 gm Documented by: Trazodone HCl (Trazodone Hcl 50 Mg Tablet) 50 mg PO BEDTIME PRN PRN Reason: Insomnia Allergies Allergies Allergy/AdvReac Type Severity Reaction Status Date / Time No Known Allergies Allergy Unverified 11/07/21 21:23 Assessment & Plan Assessment & Plan (1) Encephalopathy chronic: Status: Acute Code(s): G93.49 - Other encephalopathy Assessment and Plan: 56 years old man who apparently has developed a psychiatric type of syndrome in summer. This has been progressive resulting in worsening of his overall psychological condition resulting in admission to psychiatric floor. his exam, other than his affect and tremor, did not reveal any significant abnormality. Brain imaging has not revealed any significant pathology though I have not reviewed his brain MRI. Differential diagnosis for this type of syndrome included a primarily psychiatric disease but apparently there was no prior indications of a psychiatric illness. In that case, it is imperative that we rule out alternate pathologies. In this regard, he needed testing to rule out chronic encephalitis or any other condition that could present in this manner. To start with, I would recommend obtaining his brain MRI CD, which I like to review myself. Maybe his family can bring that CD. I would notice that testing for syphilis, HIV, sed rate, and antinuclear antibody screen were negative.In addition, I recommend serum test for Lyme, double-stranded DNA titer, Serum ceruloplasmin level serum copper level and 24 hour urine copper. 24 are urine heavy metal screen is also recommended. We should analyze his spinal fluid by doing a lumbar puncture. As he has significantly worsened, it might be reasonable to obtain a noncontrast brain MRI again for comparison to his MRI in September. This type of comparison can sometime help to determine if he was suffering from an inflammatory type of condition or not. as far as CSF is concerned, I would send the test for glucose, protein, cells, diff, Gram stain culture and sensitivity, and asked them to hold 1 tube separately. if needed, further testing can be done left to were CSF, depending upon the results of basic testing. 12/26/2021 above reviewed neurology note case extensively discussed with Dr. Matias Lumbar puncture ordered with testing including for NMDA receptor some additional labs reviewed and ordered Repeated discussion with patient regarding medical need for lumbar puncture certainly need a clear picture neurologically before more aggressive interventions. 12/27/21 Continue current regime (2) MDD (major depressive disorder), recurrent, severe, with psychosis: Status: Acute Code(s): F33.3 - Major depressive disorder, recurrent, severe with psychotic symptoms Assessment and Plan: Continue sertraline and Abilify patient depressed withdrawn anxious and ruminating seems to have difficulty taking in information at times and weighing possible consequences MRI reviewed with patient recommendations for lumbar puncture Plan -Continue medical evaluation. Lumbar puncture ordered after discussion with Neurology discussed with patient continues to be quite withdrawn. Anxious and depressed when seen left hand tremor perplexed difficulty taking in information call placed to patient's I spent 25 minutes with the patient and/or on the patient floor today, greater than?50% of which was spent counseling/coordinating care. Patient educated on: diagnosis, medication risk/benefits, therapeutic strategies and medical condition Informed Consent: further education needed Reason for contiued inpatient stay Substantial Risk for: inability to function, rapid decompensation and med/psych decompensation
[2021-12-27 15:09] LABS: Glucose CSF 57 mg/dL; Total Protein CSF 39.8 mg/dL (15-45)
[2021-12-27 15:22] LABS: Appearance CSF CLEAR; CSF Tube # 4; Color CSF COLORLESS; Red Blood Cell CSF 0 MM*3; White Blood Cell CSF 1 MM*3
[2021-12-27 15:25] LABS: Lymphocytes CSF 100 %
[2021-12-27 16:43] LABS: Cryptococcus neoformans/gattii Not Detected (Not Detect.); Enterovirus Not Detected (Not Detect.); Escherichia coli K1 Not Detected (Not Detect.); Haemophilus influenzae Not Detected (Not Detect.); Herpes simplex virus 1 Not Detected (Not Detect.); Herpes simplex virus 2 Not Detected (Not Detect.); Human herpesvirus 6 Not Detected (Not Detect.); Human parechovirus Not Detected (Not Detect.); Listeria monocytogenes Not Detected (Not Detect.); Neisseria meningitidis Not Detected (Not Detect.); Streptococcus agalactiae Not Detected (Not Detect.); Streptococcus pneumoniae Not Detected (Not Detect.); Varicella zoster virus Not Detected (Not Detect.)
[2021-12-27 18:01] LABS: CSF Appearance Clear, Colorless; CSF Tube # 1
[2021-12-27] MEDS: Sertraline HCL 50 MG TABLET 150 MG PO (20:12)
[2021-12-27] MEDS: Ferrous Sulfate 324 MG TABLET.DR PO (20:12)
[2021-12-28] MEDS: Omeprazole 40 MG CAPSULE.DR PO (05:51)
[2021-12-28 08:12] VITALS: BP 140/78; PULSE 74; RESP 18; TEMP 37.4; O2SAT 97
[2021-12-28] MEDS: Losartan Potassium 25 MG TABLET 12.5 MG PO (08:54)
[2021-12-28] MEDS: Sucralfate 1 GM TABLET PO ×2 (08:55→14:04)
[2021-12-28] MEDS: ARIPiprazole 5 MG TABLET PO (08:55)
--- NOTE | 2021-12-28 10:46 | HO.PSYCHPN ---
Subjective Subjective Date of Service: 12/28/21 Reason For Visit: unspecified bipolar and related d/o Subjective Notes: Section 7 Healthcare Proxy: No Guardianship: No Medical Problems Affecting Mental Status: No Interim History: Medical results of testing negative thus far. Pt speaking fast, soft, needing to repeat himself at times. Presents with blunted mood and affect. What will you do with me if you cannot find anything. Discussed further treatments for depression. Family meeting 01/01. Will talk with pt's on 12/29 11am-pt agrees but is not pleased- I don't think she believes me. Medication Compliance: Yes Side effects from medications: No Attending Groups: No Review of Systems Acute medical concerns: No Medical Review of Systems: unchanged Review of Systems Constitutional: Reports daytime sleepiness, Reports fatigue, Reports lethargy and Reports weakness Reports system reviewed and no additional complaints, except as documented Cardiovascular: Reports as per HPI Respiratory: Reports no additional respiratory complaints Musculoskeletal: Reports muscle cramps and Reports other (reports gout like pain in L foot) Reports Neuro-related abnormal movements, Reports confusion, Reports memory loss and Reports weakness Psychiatric: Reports anxiety, Reports confusion, Reports hopelessness, Reports memory loss and Reports suicidal ideation (denies) Endocrine: Reports fatigue Hematologic/Lymphatic: Reports no additional hematologic/lymphatic complaints Mental Status Exam Mental Status Exam Narrative: Patient Appearance:?Fatigued and Appropriate Patient Orientation:?Person, Place Level of Consciousness:?Alert Patient Behavior:?withdrawn Mood Description:?Flat Affect Description:?Flat Patient Cognition Impaired:?poor attention Ability to Follow Directions:?Good Speech Pattern:?Difficulty Finding Words with slowed mentation Memory Description:?Episodic Impaired Hallucinations:?None Delusions:?Not Present Thought Process:?Disoriented intermittently Distracted can be concrete Thought Content:?positive for [place], positive for Circumstantial and positive for Suicidal Ideation (denies) Depressive Symptoms:?Increased Anxiety, Diff. Making Decisions, Loss of Int. in Activity, Hopelessness, Isolating-Friends/Family, Increased Fatigue, Thoughts of /Suicide (denies) and Loss of Energy Judgement:?Fair Diagnostics Vital Signs (24Hr): Vital Signs - 24 hr 12/27/21 14:45 12/27/21 15:00 12/27/21 15:30 Temperature 98.6 F Pulse Rate 67 65 66 Respiratory Rate 18 18 18 Blood Pressure 118/77 117/77 114/76 Pulse Oximetry 97 97 98 12/27/21 15:45 12/27/21 16:15 12/27/21 16:43 Temperature 98.8 F Pulse Rate 62 70 81 Respiratory Rate 20 20 20 Blood Pressure 110/74 126/77 134/80 Pulse Oximetry 98 98 98 12/27/21 18:30 12/28/21 08:12 Temperature 98.1 F 99.3 F Pulse Rate 79 74 Respiratory Rate 18 Blood Pressure 114/75 140/78 H Pulse Oximetry 97 BMI result Body Mass Index 29.1 Labs Results: 12/27/21 08:11 12/22/21 14:57 Labs: Laboratory Results - last 48 hr 12/27/21 12/27/21 12/27/21 08:11 08:11 08:11 Plt Count 244 ESR 13 PT 12.1 INR 1.1 APTT 38.5 H Total Creatine Kinase CSF Tube Number CSF Volume CSF Appearance CSF Color CSF WBC CSF RBC CSF Lymphocytes CSF Appearance (b) CSF Glucose CSF Total Protein CSF C.neoform/gat PCR CSF CMV DNA (PCR) CSF Enterovirus (PCR) CSF E. coli K1 (PCR) CSF H. influenzae (PCR) CSF HSV I (PCR) CSF HSV II (PCR) CSF L.monocytogenes PCR CSF N. meningitidis PCR CSF Parechovirus (PCR) CSF S. agalactiae (PCR) CSF S. pneumoniae (PCR) CSF VZV (PCR) Rheumatoid Factor HHV-6 (PCR) 12/27/21 12/27/21 12/27/21 08:11 13:50 13:50 Plt Count ESR PT INR APTT Total Creatine Kinase 38 CSF Tube Number 1 CSF Volume CSF Appearance CSF Color CSF WBC CSF RBC CSF Lymphocytes CSF Appearance (b) Clear, Colorless CSF Glucose 57 CSF Total Protein 39.8 CSF C.neoform/gat PCR Not Detected CSF CMV DNA (PCR) Not Detected CSF Enterovirus (PCR) Not Detected CSF E. coli K1 (PCR) Not Detected CSF H. influenzae (PCR) Not Detected CSF HSV I (PCR) Not Detected CSF HSV II (PCR) Not Detected CSF L.monocytogenes PCR Not Detected CSF N. meningitidis PCR Not Detected CSF Parechovirus (PCR) Not Detected CSF S. agalactiae (PCR) Not Detected CSF S. pneumoniae (PCR) Not Detected CSF VZV (PCR) Not Detected Rheumatoid Factor < 15.0 HHV-6 (PCR) Not Detected 12/27/21 13:50 Plt Count ESR PT INR APTT Total Creatine Kinase CSF Tube Number 4 CSF Volume 4.0 CSF Appearance CLEAR CSF Color COLORLESS CSF WBC 1 CSF RBC 0 CSF Lymphocytes 100 CSF Appearance (b) CSF Glucose CSF Total Protein CSF C.neoform/gat PCR CSF CMV DNA (PCR) CSF Enterovirus (PCR) CSF E. coli K1 (PCR) CSF H. influenzae (PCR) CSF HSV I (PCR) CSF HSV II (PCR) CSF L.monocytogenes PCR CSF N. meningitidis PCR CSF Parechovirus (PCR) CSF S. agalactiae (PCR) CSF S. pneumoniae (PCR) CSF VZV (PCR) Rheumatoid Factor HHV-6 (PCR) Imaging Radiology Impressions: ITS Impressions Foot X-Ray 11/08/21 17:32 IMPRESSION: Tiny Achilles heel spur. Otherwise unremarkable appearance of the left foot. Cervical Spine X-Ray 11/22/21 14:50 IMPRESSION: No fracture or malalignment. Mild degenerative changes. Forearm X-Ray 11/22/21 14:50 IMPRESSION: No acute fractures or malalignment within the imaged left upper extremity. Hip X-Ray 11/22/21 14:50 IMPRESSION: No acute fractures or malalignment. Humerus X-Ray 11/22/21 14:50 IMPRESSION: No acute fractures or malalignment within the imaged left upper extremity. Shoulder X-Ray 11/22/21 14:50 IMPRESSION: No acute fractures or malalignment within the imaged left upper extremity. Head CT 12/22/21 16:42 IMPRESSION: No acute intracranial pathology. Hand X-Ray 12/25/21 08:38 IMPRESSION: No soft tissue foreign body seen. Brain MRI 12/25/21 09:20 IMPRESSION: No acute intracranial findings. No acute infarcts. There is mild chronic microangiopathy. No pathologic enhancement. Medications Medications Current Medications Acetaminophen (Acetaminophen 325 Mg Tablet) 650 mg PO Q6H PRN PRN Reason: Headache/Pain Mild Scale (1-3) Al Hydroxide/Mg Hydroxide (Magnesium Hydrox/Alum Hydrox 30 Ml Oral.Susp) 30 ml PO Q6H PRN PRN Reason: Heartburn/Nausea Aripiprazole (Aripiprazole 5 Mg Tablet) 5 mg PO DAILY [facility] Last Admin: 12/28/21 08:55 Dose: 5 mg Documented by: Enoxaparin Sodium (Enoxaparin Sodium 40 Mg/0.4 Ml Syringe) 40 mg SUBCUT 2100 [facility] Last Admin: 12/25/21 19:24 Dose: 40 mg Documented by: Ferrous Sulfate (Ferrous Sulfate 324 Mg Tablet.) 324 mg PO BEDTIME [facility] Last Admin: 12/27/21 20:12 Dose: 324 mg Documented by: Hydroxyzine HCl (Hydroxyzine Hcl 25 Mg Tablet) 25 mg PO Q6H PRN PRN Reason: Anxiety Last Admin: 12/16/21 22:28 Dose: 25 mg Documented by: Lidocaine (Lidocaine 4 % Patch Adh..Patch) 1 patch TRANSDERMA DAILY [facility]; Protocol Last Admin: 12/28/21 08:55 Dose: Not Given Documented by: Loperamide HCl (Loperamide Hcl 2 Mg Capsule) 2 mg PO Q6H PRN PRN Reason: Diarrhea Last Admin: 11/17/21 13:40 Dose: 2 mg Documented by: Losartan Potassium (Losartan Potassium 25 Mg Tablet) 12.5 mg PO DAILY [facility]; Protocol Last Admin: 12/28/21 08:54 Dose: 12.5 mg Documented by: Magnesium Hydroxide (Milk Of Magnesia 30 Ml Oral.Susp) 30 ml PO DAILY PRN PRN Reason: Constipation Omeprazole (Omeprazole 40 Mg Capsule.) 40 mg PO DAILY@0630 [facility] Last Admin: 12/28/21 05:51 Dose: 40 mg Documented by: Psyllium Hydrophilic Mucilloid (Psyllium Seed 3.4 Gm Powd.Pack) 3.4 gm PO BEDTIME [facility] Last Admin: 12/27/21 16:12 Dose: Not Given Documented by: Sertraline HCl (Sertraline Hcl 50 Mg Tablet) 150 mg PO BEDTIME [facility] Last Admin: 12/27/21 20:12 Dose: 150 mg Documented by: Sucralfate (Sucralfate 1 Gm Tablet) 1 gm PO TID [facility] Last Admin: 12/28/21 08:55 Dose: 1 gm Documented by: Trazodone HCl (Trazodone Hcl 50 Mg Tablet) 50 mg PO BEDTIME PRN PRN Reason: Insomnia Allergies Allergies Allergy/AdvReac Type Severity Reaction Status Date / Time No Known Allergies Allergy Unverified 11/07/21 21:23 Assessment & Plan Assessment & Plan (1) Encephalopathy chronic: Status: Acute Code(s): G93.49 - Other encephalopathy Assessment and Plan: 56 years old man who apparently has developed a psychiatric type of syndrome in summer of 2020. This has been progressive resulting in worsening of his overall psychological condition resulting in admission to psychiatric floor. his exam, other than his affect and tremor, did not reveal any significant abnormality. Brain imaging has not revealed any significant pathology though I have not reviewed his brain MRI. Differential diagnosis for this type of syndrome included a primarily psychiatric disease but apparently there was no prior indications of a psychiatric illness. In that case, it is imperative that we rule out alternate pathologies. In this regard, he needed testing to rule out chronic encephalitis or any other condition that could present in this manner. To start with, I would recommend obtaining his brain MRI CD, which I like to review myself. Maybe his family can bring that CD. I would notice that testing for syphilis, HIV, sed rate, and antinuclear antibody screen were negative.In addition, I recommend serum test for Lyme, double-stranded DNA titer, Serum ceruloplasmin level serum copper level and 24 hour urine copper. 24 are urine heavy metal screen is also recommended. We should analyze his spinal fluid by doing a lumbar puncture. As he has significantly worsened, it might be reasonable to obtain a noncontrast brain MRI again for comparison to his MRI in September. This type of comparison can sometime help to determine if he was suffering from an inflammatory type of condition or not. as far as CSF is concerned, I would send the test for glucose, protein, cells, diff, Gram stain culture and sensitivity, and asked them to hold 1 tube separately. if needed, further testing can be done left to were CSF, depending upon the results of basic testing. 12/26/2021 above reviewed neurology note case extensively discussed with Dr. Matias Lumbar puncture ordered with testing including for NMDA receptor some additional labs reviewed and ordered Repeated discussion with patient regarding medical need for lumbar puncture certainly need a clear picture neurologically before more aggressive interventions. 12/27/21 Continue current regime 12/28/21 Amantadine 100 mg bid trial. Decrease Sertraline to 100 mg daily (2) MDD (major depressive disorder), recurrent, severe, with psychosis: Status: Acute Code(s): F33.3 - Major depressive disorder, recurrent, severe with psychotic symptoms Assessment and Plan: Continue sertraline and Abilify patient depressed withdrawn anxious and ruminating seems to have difficulty taking in information at times and weighing possible consequences MRI reviewed with patient recommendations for lumbar puncture Plan -Continue medical evaluation. Lumbar puncture ordered after discussion with Neurology discussed with patient continues to be quite withdrawn. Anxious and depressed when seen left hand tremor perplexed difficulty taking in information call placed to patient's I spent 25 minutes with the patient and/or on the patient floor today, greater than?50% of which was spent counseling/coordinating care. Informed Consent: further education needed Reason for contiued inpatient stay Substantial Risk for: inability to function, rapid decompensation and med/psych decompensation
[2021-12-28 18:11] VITALS: BP 102/65; PULSE 83; TEMP 36.7; O2SAT 96
[2021-12-28] MEDS: Ferrous Sulfate 324 MG TABLET.DR PO (21:08)
[2021-12-28] MEDS: amantadine HCL 100 MG CAPSULE PO (21:08)
[2021-12-28] MEDS: Sertraline HCL 100 MG TABLET PO (21:08)
[2021-12-29 05:02] LABS: Lyme Abs Screen <0.90 index
[2021-12-29 06:00] VITALS: BP 112/73; PULSE 88; TEMP 37.1; O2SAT 96
[2021-12-29] MEDS: Omeprazole 40 MG CAPSULE.DR PO (06:31)
[2021-12-29 08:02] LABS: Ammonia 26 umol/L (13-55)
[2021-12-29] MEDS: amantadine HCL 100 MG CAPSULE PO ×2 (08:54→21:03)
[2021-12-29] MEDS: Losartan Potassium 25 MG TABLET 12.5 MG PO (08:54)
[2021-12-29] MEDS: Sucralfate 1 GM TABLET PO ×3 (08:54→21:02)
[2021-12-29] MEDS: ARIPiprazole 5 MG TABLET PO (08:55)
[2021-12-29 08:57] LABS: Cortisol Random 18.3 ug/dL
--- NOTE | 2021-12-29 11:58 | P.PNPSI_ITS ---
Subjective Subjective Date of Service: 12/29/21 Reason For Visit: unspecified bipolar and related d/o Subjective Notes: Section 7 Interim History: Gerry reports that when he was having lab work this a.m. someone implanted a chip in his neck. He reports this to team and tw. Review of pt's care with his via phone, family meeting 01/01/22. Discussed son possibly returning from [place] for spring break around [facility]. Discussed this as a goal for pt to be improved so he may spend time with him. Pt reluctant, but agrees this would be an appropriate goal to work toward. Medication Compliance: Yes Side effects from medications: No Attending Groups: No Review of Systems Acute medical concerns: No Medical eval thus far is negative. Medical Review of Systems: unchanged Review of Systems Constitutional: Reports daytime sleepiness, Reports fatigue, Reports lethargy and Reports weakness Reports system reviewed and no additional complaints, except as documented Cardiovascular: Reports as per HPI Respiratory: Reports no additional respiratory complaints Musculoskeletal: Reports muscle cramps and Reports other (reports gout like pain in L foot) Reports Neuro-related abnormal movements, Reports confusion, Reports memory loss and Reports weakness Psychiatric: Reports anxiety, Reports confusion, Reports hopelessness, Reports memory loss and Reports suicidal ideation (denies) Endocrine: Reports fatigue Hematologic/Lymphatic: Reports no additional hematologic/lymphatic complaints Mental Status Exam Mental Status Exam Narrative: Patient Appearance:?Fatigued and Appropriate Patient Orientation:?Person, Place Level of Consciousness:?Alert Patient Behavior:?withdrawn Mood Description:?Flat Affect Description:?Flat Patient Cognition Impaired:?poor attention Ability to Follow Directions:?Good Speech Pattern:?Difficulty Finding Words with slowed mentation Memory Description:?Episodic Impaired Hallucinations:?None Delusions:?Not Present Thought Process:?Disoriented intermittently Distracted can be concrete Thought Content:?positive for [place], positive for Circumstantial and positive for Suicidal Ideation (denies) Depressive Symptoms:?Increased Anxiety, Diff. Making Decisions, Loss of Int. in Activity, Hopelessness, Isolating-Friends/Family, Increased Fatigue, Thoughts of /Suicide (denies) and Loss of Energy Judgement:?Fair Diagnostics Vital Signs (24Hr): Vital Signs - 24 hr 12/28/21 18:11 12/29/21 06:00 Temperature 98.1 F 98.8 F Pulse Rate 83 88 Blood Pressure 102/65 112/73 Pulse Oximetry 96 96 BMI result Body Mass Index 29.1 Labs Results: 12/27/21 08:11 12/22/21 14:57 Labs: Laboratory Results - last 48 hr 12/27/21 12/27/21 12/27/21 08:11 13:50 13:50 Ammonia Random Cortisol CSF Tube Number 1 CSF Volume CSF Appearance CSF Color CSF WBC CSF RBC CSF Lymphocytes CSF Appearance (b) Clear, Colorless CSF Glucose 57 CSF Total Protein 39.8 CSF C.neoform/gat PCR Not Detected CSF CMV DNA (PCR) Not Detected CSF Enterovirus (PCR) Not Detected CSF E. coli K1 (PCR) Not Detected CSF H. influenzae (PCR) Not Detected CSF HSV I (PCR) Not Detected CSF HSV II (PCR) Not Detected CSF L.monocytogenes PCR Not Detected CSF N. meningitidis PCR Not Detected CSF Parechovirus (PCR) Not Detected CSF S. agalactiae (PCR) Not Detected CSF S. pneumoniae (PCR) Not Detected CSF VZV (PCR) Not Detected Lyme Screen IgG & IgM <0.90 HHV-6 (PCR) Not Detected 12/27/21 12/29/21 12/29/21 13:50 07:18 07:18 Ammonia 26 Random Cortisol 18.3 CSF Tube Number 4 CSF Volume 4.0 CSF Appearance CLEAR CSF Color COLORLESS CSF WBC 1 CSF RBC 0 CSF Lymphocytes 100 CSF Appearance (b) CSF Glucose CSF Total Protein CSF C.neoform/gat PCR CSF CMV DNA (PCR) CSF Enterovirus (PCR) CSF E. coli K1 (PCR) CSF H. influenzae (PCR) CSF HSV I (PCR) CSF HSV II (PCR) CSF L.monocytogenes PCR CSF N. meningitidis PCR CSF Parechovirus (PCR) CSF S. agalactiae (PCR) CSF S. pneumoniae (PCR) CSF VZV (PCR) Lyme Screen IgG & IgM HHV-6 (PCR) Imaging Radiology Impressions: ITS Impressions Foot X-Ray 11/08/21 17:32 IMPRESSION: Tiny Achilles heel spur. Otherwise unremarkable appearance of the left foot. Cervical Spine X-Ray 11/22/21 14:50 IMPRESSION: No fracture or malalignment. Mild degenerative changes. Forearm X-Ray 11/22/21 14:50 IMPRESSION: No acute fractures or malalignment within the imaged left upper extremity. Hip X-Ray 11/22/21 14:50 IMPRESSION: No acute fractures or malalignment. Humerus X-Ray 11/22/21 14:50 IMPRESSION: No acute fractures or malalignment within the imaged left upper extremity. Shoulder X-Ray 11/22/21 14:50 IMPRESSION: No acute fractures or malalignment within the imaged left upper extremity. Head CT 12/22/21 16:42 IMPRESSION: No acute intracranial pathology. Hand X-Ray 12/25/21 08:38 IMPRESSION: No soft tissue foreign body seen. Brain MRI 12/25/21 09:20 IMPRESSION: No acute intracranial findings. No acute infarcts. There is mild chronic microangiopathy. No pathologic enhancement. Lumbar Puncture Fluoroscopy 12/27/21 14:00 IMPRESSION: Successful ultrasound-guided lumbar puncture performed without immediate complications. Medications Medications Current Medications Acetaminophen (Acetaminophen 325 Mg Tablet) 650 mg PO Q6H PRN PRN Reason: Headache/Pain Mild Scale (1-3) Al Hydroxide/Mg Hydroxide (Magnesium Hydrox/Alum Hydrox 30 Ml Oral.Susp) 30 ml PO Q6H PRN PRN Reason: Heartburn/Nausea Amantadine HCl (Amantadine Hcl 100 Mg Capsule) 100 mg PO BID [facility] Last Admin: 12/29/21 08:54 Dose: 100 mg Documented by: Aripiprazole (Aripiprazole 5 Mg Tablet) 5 mg PO DAILY [facility] Last Admin: 12/29/21 08:55 Dose: 5 mg Documented by: Enoxaparin Sodium (Enoxaparin Sodium 40 Mg/0.4 Ml Syringe) 40 mg SUBCUT 2100 [facility] Last Admin: 12/25/21 19:24 Dose: 40 mg Documented by: Ferrous Sulfate (Ferrous Sulfate 324 Mg Tablet.) 324 mg PO BEDTIME [facility] Last Admin: 12/28/21 21:08 Dose: 324 mg Documented by: Hydroxyzine HCl (Hydroxyzine Hcl 25 Mg Tablet) 25 mg PO Q6H PRN PRN Reason: Anxiety Last Admin: 12/16/21 22:28 Dose: 25 mg Documented by: Lidocaine (Lidocaine 4 % Patch Adh..Patch) 1 patch TRANSDERMA DAILY [facility]; Protocol Last Admin: 12/29/21 08:55 Dose: Not Given Documented by: Loperamide HCl (Loperamide Hcl 2 Mg Capsule) 2 mg PO Q6H PRN PRN Reason: Diarrhea Last Admin: 11/17/21 13:40 Dose: 2 mg Documented by: Losartan Potassium (Losartan Potassium 25 Mg Tablet) 12.5 mg PO DAILY [facility]; Protocol Last Admin: 12/29/21 08:54 Dose: 12.5 mg Documented by: Magnesium Hydroxide (Milk Of Magnesia 30 Ml Oral.Susp) 30 ml PO DAILY PRN PRN Reason: Constipation Omeprazole (Omeprazole 40 Mg Capsule.Dr) 40 mg PO DAILY@0630 [facility] Last Admin: 12/29/21 06:31 Dose: 40 mg Documented by: Psyllium Hydrophilic Mucilloid (Psyllium Seed 3.4 Gm Powd.Pack) 3.4 gm PO BEDTIME [facility] Last Admin: 12/28/21 20:26 Dose: Not Given Documented by: Sertraline HCl (Sertraline Hcl 100 Mg Tablet) 100 mg PO BEDTIME [facility] Last Admin: 12/28/21 21:08 Dose: 100 mg Documented by: Sucralfate (Sucralfate 1 Gm Tablet) 1 gm PO TID [facility] Last Admin: 12/29/21 08:54 Dose: 1 gm Documented by: Trazodone HCl (Trazodone Hcl 50 Mg Tablet) 50 mg PO BEDTIME PRN PRN Reason: Insomnia Allergies Allergies Allergy/AdvReac Type Severity Reaction Status Date / Time No Known Allergies Allergy Unverified 11/07/21 21:23 Assessment & Plan Assessment & Plan (1) Encephalopathy chronic: Status: Acute Code(s): G93.49 - Other encephalopathy Assessment and Plan: 56 years old man who apparently has developed a psychiatric type of syndrome in summer. This has been progressive resulting in worsening of his overall psychological condition resulting in admission to psychiatric floor. his exam, other than his affect and tremor, did not reveal any significant abnormality. Brain imaging has not revealed any significant pathology though I have not reviewed his brain MRI. Differential diagnosis for this type of syndrome included a primarily psychiatric disease but apparently there was no prior indications of a psychiatric illness. In that case, it is imperative that we rule out alternate pathologies. In this regard, he needed testing to rule out chronic encephalitis or any other condition that could present in this manner. To start with, I would recommend obtaining his brain MRI CD, which I like to review myself. Maybe his family can bring that CD. I would notice that testing for syphilis, HIV, sed rate, and antinuclear antibody screen were negative.In addition, I recommend serum test for Lyme, double-stranded DNA titer, Serum ceruloplasmin level serum copper level and 24 hour urine copper. 24 are urine heavy metal screen is also recommended. We should analyze his spinal fluid by doing a lumbar puncture. As he has significantly worsened, it might be reasonable to obtain a noncontrast brain MRI again for comparison to his MRI in September. This type of comparison can sometime help to determine if he was suffering from an inflammatory type of condition or not. as far as CSF is concerned, I would send the test for glucose, protein, cells, diff, Gram stain culture and sensitivity, and asked them to hold 1 tube separately. if needed, further testing can be done left to were CSF, depending upon the results of basic testing. 12/26/2021 above reviewed neurology note case extensively discussed with Dr. Matias Lumbar puncture ordered with testing including for NMDA receptor some additional labs reviewed and ordered Repeated discussion with patient regarding medical need for lumbar puncture certainly need a clear picture neurologically before more aggressive interventions. 12/27/21 Continue current regime 12/28/21 Amantadine 100 mg bid trial. Decrease Sertraline to 100 mg daily 12/29/21 Discontinue Abilify Risperdal 1 mg HS (2) MDD (major depressive disorder), recurrent, severe, with psychosis: Status: Acute Code(s): F33.3 - Major depressive disorder, recurrent, severe with psychotic symptoms I spent 25 minutes with the patient and/or on the patient floor today, greater than?50% of which was spent counseling/coordinating care. Patient educated on: medication risk/benefits Informed Consent: understands and further education needed Reason for contiued inpatient stay Substantial Risk for: inability to function and rapid decompensation
[2021-12-29 13:47] LABS: Ceruloplasmin 34 mg/dL (18-36)
[2021-12-29 18:00] VITALS: BP 116/67; PULSE 69; TEMP 36.8; O2SAT 97
[2021-12-29] MEDS: Ferrous Sulfate 324 MG TABLET.DR PO (21:03)
[2021-12-29] MEDS: Sertraline HCL 100 MG TABLET PO (21:03)
[2021-12-29] MEDS: risperiDONE 1 MG TABLET PO (21:03)
[2021-12-30] MEDS: Omeprazole 40 MG CAPSULE.DR PO (06:10)
[2021-12-30] MEDS: amantadine HCL 100 MG CAPSULE PO ×2 (08:52→20:07)
[2021-12-30] MEDS: Sucralfate 1 GM TABLET PO ×3 (08:52→20:07)
[2021-12-30] MEDS: Losartan Potassium 25 MG TABLET 12.5 MG PO (08:52)
[2021-12-30 08:54] VITALS: BP 121/77; PULSE 83; TEMP 36.6; O2SAT 98
--- NOTE | 2021-12-30 09:29 | HO.PSYCHPN ---
Subjective Subjective Date of Service: 12/30/21 Reason For Visit: unspecified bipolar and related d/o Subjective Notes: Section 7 Interim History: Discussed with Gerry the meaning of signing a conditional voluntary admission form. Reviewed discussion with pt's on 12/29. Pt asking appropriate questions. Reviewed scheduling appt for neuro psychiatric testing. Reviewed purpose of 01/01 family meeting. No SE from regime changes-Abilify d/c; Risperdal initiation-pt's speech is clearer today and more articulate-proper volume and tone. Medication Compliance: Yes Side effects from medications: No Attending Groups: No Review of Systems Acute medical concerns: No Medical Review of Systems: unchanged Review of Systems Constitutional: Reports daytime sleepiness, Reports fatigue, Reports lethargy and Reports weakness Reports system reviewed and no additional complaints, except as documented Cardiovascular: Reports as per HPI Respiratory: Reports no additional respiratory complaints Musculoskeletal: Reports muscle cramps and Reports other (reports gout like pain in L foot) Reports Neuro-related abnormal movements, Reports confusion, Reports memory loss and Reports weakness Psychiatric: Reports anxiety, Reports confusion, Reports hopelessness, Reports memory loss and Reports suicidal ideation (denies) Endocrine: Reports fatigue Hematologic/Lymphatic: Reports no additional hematologic/lymphatic complaints Mental Status Exam Mental Status Exam Narrative: Patient Appearance:?Fatigued and Appropriate Patient Orientation:?Person, Place Level of Consciousness:?Alert Patient Behavior:?withdrawn Mood Description:?Flat Affect Description:?Flat Patient Cognition Impaired:?poor attention Ability to Follow Directions:?Good Speech Pattern:?Difficulty Finding Words with slowed mentation Memory Description:?Episodic Impaired Hallucinations:?None Delusions:?Not Present Thought Process:?Disoriented intermittently Distracted can be concrete Thought Content:?positive for [place], positive for Circumstantial and positive for Suicidal Ideation (denies) Depressive Symptoms:?Increased Anxiety, Diff. Making Decisions, Loss of Int. in Activity, Hopelessness, Isolating-Friends/Family, Increased Fatigue, Thoughts of /Suicide (denies) and Loss of Energy Judgement:?Fair Diagnostics Vital Signs (24Hr): Vital Signs - 24 hr 12/29/21 18:00 12/30/21 08:54 Temperature 98.2 F 97.9 F Pulse Rate 69 83 Blood Pressure 116/67 121/77 Pulse Oximetry 97 98 BMI result Body Mass Index 29.1 Labs Results: 12/27/21 08:11 12/22/21 14:57 Labs: Laboratory Results - last 48 hr 12/27/21 12/27/21 12/29/21 08:11 08:11 07:18 Ammonia 26 Ceruloplasmin 34 Random Cortisol Lyme Screen IgG & IgM <0.90 Lyme Progressive Test TNP 12/29/21 07:18 Ammonia Ceruloplasmin Random Cortisol 18.3 Lyme Screen IgG & IgM Lyme Progressive Test Imaging Radiology Impressions: ITS Impressions Foot X-Ray 11/08/21 17:32 IMPRESSION: Tiny Achilles heel spur. Otherwise unremarkable appearance of the left foot. Cervical Spine X-Ray 11/22/21 14:50 IMPRESSION: No fracture or malalignment. Mild degenerative changes. Forearm X-Ray 11/22/21 14:50 IMPRESSION: No acute fractures or malalignment within the imaged left upper extremity. Hip X-Ray 11/22/21 14:50 IMPRESSION: No acute fractures or malalignment. Humerus X-Ray 11/22/21 14:50 IMPRESSION: No acute fractures or malalignment within the imaged left upper extremity. Shoulder X-Ray 11/22/21 14:50 IMPRESSION: No acute fractures or malalignment within the imaged left upper extremity. Head CT 12/22/21 16:42 IMPRESSION: No acute intracranial pathology. Hand X-Ray 12/25/21 08:38 IMPRESSION: No soft tissue foreign body seen. Brain MRI 12/25/21 09:20 IMPRESSION: No acute intracranial findings. No acute infarcts. There is mild chronic microangiopathy. No pathologic enhancement. Lumbar Puncture Fluoroscopy 12/27/21 14:00 IMPRESSION: Successful ultrasound-guided lumbar puncture performed without immediate complications. Medications Medications Current Medications Acetaminophen (Acetaminophen 325 Mg Tablet) 650 mg PO Q6H PRN PRN Reason: Headache/Pain Mild Scale (1-3) Al Hydroxide/Mg Hydroxide (Magnesium Hydrox/Alum Hydrox 30 Ml Oral.Susp) 30 ml PO Q6H PRN PRN Reason: Heartburn/Nausea Amantadine HCl (Amantadine Hcl 100 Mg Capsule) 100 mg PO BID [facility] Last Admin: 12/30/21 08:52 Dose: 100 mg Documented by: Enoxaparin Sodium (Enoxaparin Sodium 40 Mg/0.4 Ml Syringe) 40 mg SUBCUT 2100 [facility] Last Admin: 12/25/21 19:24 Dose: 40 mg Documented by: Ferrous Sulfate (Ferrous Sulfate 324 Mg Tablet.) 324 mg PO BEDTIME [facility] Last Admin: 12/29/21 21:03 Dose: 324 mg Documented by: Hydroxyzine HCl (Hydroxyzine Hcl 25 Mg Tablet) 25 mg PO Q6H PRN PRN Reason: Anxiety Last Admin: 12/16/21 22:28 Dose: 25 mg Documented by: Lidocaine (Lidocaine 4 % Patch Adh..Patch) 1 patch TRANSDERMA DAILY [facility]; Protocol Last Admin: 12/30/21 08:53 Dose: Not Given Documented by: Loperamide HCl (Loperamide Hcl 2 Mg Capsule) 2 mg PO Q6H PRN PRN Reason: Diarrhea Last Admin: 11/17/21 13:40 Dose: 2 mg Documented by: Losartan Potassium (Losartan Potassium 25 Mg Tablet) 12.5 mg PO DAILY [facility]; Protocol Last Admin: 12/30/21 08:52 Dose: 12.5 mg Documented by: Magnesium Hydroxide (Milk Of Magnesia 30 Ml Oral.Susp) 30 ml PO DAILY PRN PRN Reason: Constipation Omeprazole (Omeprazole 40 Mg Capsule.) 40 mg PO DAILY@0630 [facility] Last Admin: 12/30/21 06:10 Dose: 40 mg Documented by: Psyllium Hydrophilic Mucilloid (Psyllium Seed 3.4 Gm Powd.Pack) 3.4 gm PO BEDTIME [facility] Last Admin: 12/29/21 19:50 Dose: Not Given Documented by: Risperidone (Risperidone 1 Mg Tablet) 1 mg PO BEDTIME [facility] Last Admin: 12/29/21 21:03 Dose: 1 mg Documented by: Sertraline HCl (Sertraline Hcl 100 Mg Tablet) 100 mg PO BEDTIME [facility] Last Admin: 12/29/21 21:03 Dose: 100 mg Documented by: Sucralfate (Sucralfate 1 Gm Tablet) 1 gm PO TID [facility] Last Admin: 12/30/21 08:52 Dose: 1 gm Documented by: Trazodone HCl (Trazodone Hcl 50 Mg Tablet) 50 mg PO BEDTIME PRN PRN Reason: Insomnia Allergies Allergies Allergy/AdvReac Type Severity Reaction Status Date / Time No Known Allergies Allergy Unverified 11/07/21 21:23 Assessment & Plan Assessment & Plan (1) Encephalopathy chronic: Status: Acute Code(s): G93.49 - Other encephalopathy Assessment and Plan: 56 years old man who apparently has developed a psychiatric type of syndrome in summer. This has been progressive resulting in worsening of his overall psychological condition resulting in admission to psychiatric floor. his exam, other than his affect and tremor, did not reveal any significant abnormality. Brain imaging has not revealed any significant pathology though I have not reviewed his brain MRI. Differential diagnosis for this type of syndrome included a primarily psychiatric disease but apparently there was no prior indications of a psychiatric illness. In that case, it is imperative that we rule out alternate pathologies. In this regard, he needed testing to rule out chronic encephalitis or any other condition that could present in this manner. To start with, I would recommend obtaining his brain MRI CD, which I like to review myself. Maybe his family can bring that CD. I would notice that testing for syphilis, HIV, sed rate, and antinuclear antibody screen were negative.In addition, I recommend serum test for Lyme, double-stranded DNA titer, Serum ceruloplasmin level serum copper level and 24 hour urine copper. 24 are urine heavy metal screen is also recommended. We should analyze his spinal fluid by doing a lumbar puncture. As he has significantly worsened, it might be reasonable to obtain a noncontrast brain MRI again for comparison to his MRI in September. This type of comparison can sometime help to determine if he was suffering from an inflammatory type of condition or not. as far as CSF is concerned, I would send the test for glucose, protein, cells, diff, Gram stain culture and sensitivity, and asked them to hold 1 tube separately. if needed, further testing can be done left to were CSF, depending upon the results of basic testing. 12/26/2021 above reviewed neurology note case extensively discussed with Dr. Matias Lumbar puncture ordered with testing including for NMDA receptor some additional labs reviewed and ordered Repeated discussion with patient regarding medical need for lumbar puncture certainly need a clear picture neurologically before more aggressive interventions. 12/27/21 Continue current regime 12/28/21 Amantadine 100 mg bid trial. Decrease Sertraline to 100 mg daily 12/29/21 Discontinue Abilify Risperdal 1 mg HS 12/30/21 Continue current plan (2) MDD (major depressive disorder), recurrent, severe, with psychosis: Status: Acute Code(s): F33.3 - Major depressive disorder, recurrent, severe with psychotic symptoms I spent 25 minutes with the patient and/or on the patient floor today, greater than?50% of which was spent counseling/coordinating care. Patient educated on: diagnosis, medication risk/benefits, therapeutic strategies and medical condition Informed Consent: further education needed Reason for contiued inpatient stay Substantial Risk for: inability to function, rapid decompensation and med/psych decompensation
[2021-12-30 18:00] VITALS: BP 102/68; PULSE 78; RESP 16; TEMP 36.5; O2SAT 99
[2021-12-30] MEDS: Sertraline HCL 100 MG TABLET PO (20:07)
[2021-12-30] MEDS: Ferrous Sulfate 324 MG TABLET.DR PO (20:07)
[2021-12-30] MEDS: risperiDONE 1 MG TABLET PO (20:07)
[2021-12-31 06:00] VITALS: BP 114/70; PULSE 80; RESP 16; TEMP 36.6; O2SAT 98
[2021-12-31] MEDS: Omeprazole 40 MG CAPSULE.DR PO (07:08)
[2021-12-31] MEDS: Sucralfate 1 GM TABLET PO ×3 (08:26→20:37)
[2021-12-31] MEDS: amantadine HCL 100 MG CAPSULE PO ×2 (08:26→20:36)
[2021-12-31] MEDS: Losartan Potassium 25 MG TABLET 12.5 MG PO (08:26)
--- NOTE | 2021-12-31 09:03 | P.CNNE_ITS ---
History of Present Illness Data of Consult Service Date: 12/31/21 Primary Care Provider: Ama Kilgore DO HPI Reason for consult: Encephalopathy 56 years old man who I had seen few days ago and ordered multiple tests including an MRI and lumbar puncture. His overall status has not much changed. I talked to him this morning and he could not elaborate what his problems were. He said ?I do not know?. There was no sign of any focal weakness or seizure- like episode per [facility] Past Medical History Medical History (Updated 12/23/21 @ 13:43 by Sonya Matias MD) Gram-negative bacteremia Social History Social History Household Members: Spouse and Children Household Members Other:: and Three Children ages 11, 13, 15 Housing: House Do you presently have visiting nurse or other home services: No Patient Tobacco Use Status: Never used Tobacco Use of substances other than those prescribed or required for medical reasons: No Currently Displaying Signs/Symptoms of Drug Intoxication Withdrawal: No Have you been hit, kicked, punched, or otherwise hurt by someone within the past year? If so, by whom?: No Do you feel safe in your current relationship?: Yes Is there a partner from a previous relationship who is making you feel unsafe now?: No Are you made to feel afraid or neglected: No Advance Directives: No Advance Directives Information Provided: No Do you have thoughts of harming others: None Do you have a plan to hurt others: No Plan Recently lost weight without trying: No Eating poorly because of decreased appetite: No Nutrition Risks: No Nutritional Risk Poor oral hygiene: No service: No ([employer] [id number]) Sexual orientation: Straight/Heterosexual Meds Allergies Allergy/AdvReac Type Severity Reaction Status Date / Time No Known Allergies Allergy Unverified 11/07/21 21:23 Active Medications: Current Medications Acetaminophen (Acetaminophen 325 Mg Tablet) 650 mg PO Q6H PRN PRN Reason: Headache/Pain Mild Scale (1-3) Al Hydroxide/Mg Hydroxide (Magnesium Hydrox/Alum Hydrox 30 Ml Oral.Susp) 30 ml PO Q6H PRN PRN Reason: Heartburn/Nausea Amantadine HCl (Amantadine Hcl 100 Mg Capsule) 100 mg PO BID [facility] Last Admin: 12/31/21 08:26 Dose: 100 mg Documented by: Enoxaparin Sodium (Enoxaparin Sodium 40 Mg/0.4 Ml Syringe) 40 mg SUBCUT 2100 [facility] Last Admin: 12/25/21 19:24 Dose: 40 mg Documented by: Ferrous Sulfate (Ferrous Sulfate 324 Mg Tablet.) 324 mg PO BEDTIME [facility] Last Admin: 12/30/21 20:07 Dose: 324 mg Documented by: Hydroxyzine HCl (Hydroxyzine Hcl 25 Mg Tablet) 25 mg PO Q6H PRN PRN Reason: Anxiety Last Admin: 12/16/21 22:28 Dose: 25 mg Documented by: Lidocaine (Lidocaine 4 % Patch Adh..Patch) 1 patch TRANSDERMA DAILY [facility]; Protocol Last Admin: 12/31/21 09:00 Dose: Not Given Documented by: Loperamide HCl (Loperamide Hcl 2 Mg Capsule) 2 mg PO Q6H PRN PRN Reason: Diarrhea Last Admin: 11/17/21 13:40 Dose: 2 mg Documented by: Losartan Potassium (Losartan Potassium 25 Mg Tablet) 12.5 mg PO DAILY [facility]; Protocol Last Admin: 12/31/21 08:26 Dose: 12.5 mg Documented by: Magnesium Hydroxide (Milk Of Magnesia 30 Ml Oral.Susp) 30 ml PO DAILY PRN PRN Reason: Constipation Omeprazole (Omeprazole 40 Mg Capsule.) 40 mg PO DAILY@0630 [facility] Last Admin: 12/31/21 07:08 Dose: 40 mg Documented by: Psyllium Hydrophilic Mucilloid (Psyllium Seed 3.4 Gm Powd.Pack) 3.4 gm PO BEDTIME [facility] Last Admin: 12/30/21 20:49 Dose: Not Given Documented by: Risperidone (Risperidone 1 Mg Tablet) 1 mg PO BEDTIME [facility] Last Admin: 12/30/21 20:07 Dose: 1 mg Documented by: Sertraline HCl (Sertraline Hcl 100 Mg Tablet) 100 mg PO BEDTIME [facility] Last Admin: 12/30/21 20:07 Dose: 100 mg Documented by: Sucralfate (Sucralfate 1 Gm Tablet) 1 gm PO TID [facility] Last Admin: 12/31/21 08:26 Dose: 1 gm Documented by: Trazodone HCl (Trazodone Hcl 50 Mg Tablet) 50 mg PO BEDTIME PRN PRN Reason: Insomnia Home Medications Medication Instructions Recorded Confirmed Last Taken Type acetaminophen 500 mg tablet 500 mg PO Q6-8H PRN 12/13/21 12/13/21 Unknown Histo ry (Acetaminophen Extra Strength) Physical Exam Vital Signs: Vital Signs: Last Vital Signs Temp 97.9 F 12/31/21 06:00 Pulse 80 12/31/21 06:00 Resp 16 12/31/21 06:00 BP 114/70 12/31/21 06:00 Pulse Ox 98 12/31/21 06:00 BMI result Body Mass Index 29.1 Neuro: Other: He was alert and awake with normal spontaneity of speech fluency comprehension and depressed affect. Face was symmetrical. There was no tremor. There was no focal weakness. He was able to get up and walk around without difficulty. Speech was normal. Results Labs CBC & Chem 7: 12/27/21 08:11 12/22/21 14:57 Labs: His MRI and CSF analysis so far has been negative with normal protein level. IgG index is pending. Meningoencephalitis panel was negative. Paraneoplastic panel is pending. Microbiology Microbiology Results: Microbiology 12/27/21 13:50 Cerebrospinal Fluid Gram Stain - Final 12/27/21 13:50 Cerebrospinal Fluid CSF Examination - Final 12/27/21 13:50 Cerebrospinal Fluid Fluid Description - Final 12/27/21 13:50 Cerebrospinal Fluid CSF Culture - Final No growth after 3 days. Assessment and Plan (1) Encephalopathy chronic: Status: Acute At this time no definitive neurological diagnosis is made. His overall mental situation is not suggestive of a dementing illness. It suggested a subacute neurological, so far under diagnosed, or psychiatric illness. Multiple tests have been negative and I am waiting for further a reference labs on CSF. As initial CSF findings were negative or normal, I do not recommend any treatment, other than symptomatic psychiatric therapies. As far as further testing with functional imaging such as PET scan or SPECT scan is concerned, these type of investigations do not provide any specific diagnosis and may not lead to any meaningful conclusion. Neuro psychological evaluation can be tried when he is somewhat better and able to cooperate and sit for an interview. Procedures Date of Service Date of Service: 12/31/21
--- NOTE | 2021-12-31 15:44 | HO.PSYCHPN ---
Subjective Subjective Date of Service: 12/31/21 Reason For Visit: unspecified bipolar and related d/o Subjective Notes: Section 7 Healthcare Proxy: Yes Guardianship: No Medical Problems Affecting Mental Status: No Interim History: Seen in preparation for family meeting 01/01. Gerry will not consider signing in to treatment-awaits court date on 01/10/22. He declines GI evaluation although he has significant worry about having a GI cancer as his mother did prior to her passing away. Continues with an aloof presentation. Discussion of potential treatment options of ECT, new medication trials and setting goals for going home to return to , family, children, work, and his life. He presents with no interest in these unfortunately. Encouraged to consider what topics to discuss in the meeting to help him grasp a treatment plan with result. Medication Compliance: Yes Side effects from medications: No Attending Groups: No Review of Systems Acute medical concerns: No Medical evaluation thus far is negative for issues. Medical Review of Systems: unchanged Review of Systems Constitutional: Reports daytime sleepiness, Reports fatigue, Reports lethargy and Reports weakness Reports system reviewed and no additional complaints, except as documented Cardiovascular: Reports as per HPI Respiratory: Reports no additional respiratory complaints Musculoskeletal: Reports muscle cramps and Reports other (reports gout like pain in L foot) Reports Neuro-related abnormal movements, Reports confusion, Reports memory loss and Reports weakness Psychiatric: Reports anxiety, Reports confusion, Reports hopelessness, Reports memory loss and Reports suicidal ideation (denies) Endocrine: Reports fatigue Hematologic/Lymphatic: Reports no additional hematologic/lymphatic complaints Mental Status Exam Mental Status Exam Narrative: Patient Appearance:?Fatigued and Appropriate Patient Orientation:?Person, Place Level of Consciousness:?Alert Patient Behavior:?withdrawn Mood Description:?Flat Affect Description:?Flat Patient Cognition Impaired:?poor attention Ability to Follow Directions:?Good Speech Pattern:?Difficulty Finding Words with slowed mentation Memory Description:?Episodic Impaired Hallucinations:?None Delusions:?Not Present Thought Process:?Disoriented intermittently Distracted can be concrete Thought Content:?positive for [place], positive for Circumstantial and positive for Suicidal Ideation (denies) Depressive Symptoms:?Increased Anxiety, Diff. Making Decisions, Loss of Int. in Activity, Hopelessness, Isolating-Friends/Family, Increased Fatigue, Thoughts of /Suicide (denies) and Loss of Energy Judgement:?Fair Diagnostics Vital Signs (24Hr): Vital Signs - 24 hr 12/30/21 18:00 12/31/21 06:00 Temperature 97.7 F 97.9 F Pulse Rate 78 80 Respiratory Rate 16 16 Blood Pressure 102/68 114/70 Pulse Oximetry 99 98 BMI result Body Mass Index 29.1 Labs Results: 12/27/21 08:11 12/22/21 14:57 Imaging Radiology Impressions: ITS Impressions Foot X-Ray 11/08/21 17:32 IMPRESSION: Tiny Achilles heel spur. Otherwise unremarkable appearance of the left foot. Cervical Spine X-Ray 11/22/21 14:50 IMPRESSION: No fracture or malalignment. Mild degenerative changes. Forearm X-Ray 11/22/21 14:50 IMPRESSION: No acute fractures or malalignment within the imaged left upper extremity. Hip X-Ray 11/22/21 14:50 IMPRESSION: No acute fractures or malalignment. Humerus X-Ray 11/22/21 14:50 IMPRESSION: No acute fractures or malalignment within the imaged left upper extremity. Shoulder X-Ray 11/22/21 14:50 IMPRESSION: No acute fractures or malalignment within the imaged left upper extremity. Head CT 12/22/21 16:42 IMPRESSION: No acute intracranial pathology. Hand X-Ray 12/25/21 08:38 IMPRESSION: No soft tissue foreign body seen. Brain MRI 12/25/21 09:20 IMPRESSION: No acute intracranial findings. No acute infarcts. There is mild chronic microangiopathy. No pathologic enhancement. Lumbar Puncture Fluoroscopy 12/27/21 14:00 IMPRESSION: Successful ultrasound-guided lumbar puncture performed without immediate complications. Medications Medications Current Medications Acetaminophen (Acetaminophen 325 Mg Tablet) 650 mg PO Q6H PRN PRN Reason: Headache/Pain Mild Scale (1-3) Al Hydroxide/Mg Hydroxide (Magnesium Hydrox/Alum Hydrox 30 Ml Oral.Susp) 30 ml PO Q6H PRN PRN Reason: Heartburn/Nausea Amantadine HCl (Amantadine Hcl 100 Mg Capsule) 100 mg PO BID [facility] Last Admin: 12/31/21 08:26 Dose: 100 mg Documented by: Enoxaparin Sodium (Enoxaparin Sodium 40 Mg/0.4 Ml Syringe) 40 mg SUBCUT 2100 [facility] Last Admin: 12/25/21 19:24 Dose: 40 mg Documented by: Ferrous Sulfate (Ferrous Sulfate 324 Mg Tablet.Dr) 324 mg PO BEDTIME [facility] Last Admin: 12/30/21 20:07 Dose: 324 mg Documented by: Hydroxyzine HCl (Hydroxyzine Hcl 25 Mg Tablet) 25 mg PO Q6H PRN PRN Reason: Anxiety Last Admin: 12/16/21 22:28 Dose: 25 mg Documented by: Lidocaine (Lidocaine 4 % Patch Adh..Patch) 1 patch TRANSDERMA DAILY [facility]; Protocol Last Admin: 12/31/21 09:00 Dose: Not Given Documented by: Loperamide HCl (Loperamide Hcl 2 Mg Capsule) 2 mg PO Q6H PRN PRN Reason: Diarrhea Last Admin: 11/17/21 13:40 Dose: 2 mg Documented by: Losartan Potassium (Losartan Potassium 25 Mg Tablet) 12.5 mg PO DAILY [facility]; Protocol Last Admin: 12/31/21 08:26 Dose: 12.5 mg Documented by: Magnesium Hydroxide (Milk Of Magnesia 30 Ml Oral.Susp) 30 ml PO DAILY PRN PRN Reason: Constipation Omeprazole (Omeprazole 40 Mg Capsule.Dr) 40 mg PO DAILY@0630 [facility] Last Admin: 12/31/21 07:08 Dose: 40 mg Documented by: Psyllium Hydrophilic Mucilloid (Psyllium Seed 3.4 Gm Powd.Pack) 3.4 gm PO BEDTIME [facility] Last Admin: 12/30/21 20:49 Dose: Not Given Documented by: Risperidone (Risperidone 1 Mg Tablet) 1 mg PO BEDTIME [facility] Last Admin: 12/30/21 20:07 Dose: 1 mg Documented by: Sertraline HCl (Sertraline Hcl 100 Mg Tablet) 100 mg PO BEDTIME [facility] Last Admin: 12/30/21 20:07 Dose: 100 mg Documented by: Sucralfate (Sucralfate 1 Gm Tablet) 1 gm PO TID [facility] Last Admin: 12/31/21 14:22 Dose: 1 gm Documented by: Trazodone HCl (Trazodone Hcl 50 Mg Tablet) 50 mg PO BEDTIME PRN PRN Reason: Insomnia Allergies Allergies Allergy/AdvReac Type Severity Reaction Status Date / Time No Known Allergies Allergy Unverified 11/07/21 21:23 Assessment & Plan Assessment & Plan (1) Encephalopathy chronic: Status: Acute Code(s): G93.49 - Other encephalopathy Assessment and Plan: At this time no definitive neurological diagnosis is made. His overall mental situation is not suggestive of a dementing illness. It suggested a subacute neurological, so far under diagnosed, or psychiatric illness. Multiple tests have been negative and I am waiting for further a reference labs on CSF. As initial CSF findings were negative or normal, I do not recommend any treatment, other than symptomatic psychiatric therapies. As far as further testing with functional imaging such as PET scan or SPECT scan is concerned, these type of investigations do not provide any specific diagnosis and may not lead to any meaningful conclusion. Neuro psychological evaluation can be tried when he is somewhat better and able to cooperate and sit for an interview. (2) MDD (major depressive disorder), recurrent, severe, with psychosis: Status: Acute Code(s): F33.3 - Major depressive disorder, recurrent, severe with psychotic symptoms Assessment and Plan: Depressed. Continue current plan of care. Family meeting 01/01/22. I spent 25 minutes with the patient and/or on the patient floor today, greater than?50% of which was spent counseling/coordinating care. Patient educated on: diagnosis, medication risk/benefits, therapeutic strategies and medical condition Informed Consent: further education needed Reason for contiued inpatient stay Substantial Risk for: inability to function and rapid decompensation
[2021-12-31 18:19] VITALS: BP 132/77; PULSE 73; TEMP 36.8
[2021-12-31] MEDS: risperiDONE 1 MG TABLET PO (20:36)
[2021-12-31] MEDS: Sertraline HCL 100 MG TABLET PO (20:37)
[2021-12-31] MEDS: Ferrous Sulfate 324 MG TABLET.DR PO (20:37)
[2022-01-01 01:26] LABS: Arsenic, 24H Urine <10 mcg/L (<=80); Cadmium, 24H Urine <0.5 mcg/L (<=5.0); Lead, 24H Urine <10 mcg/L (<80); Mercury, 24H Urine <4 mcg/L (<=20)
[2022-01-01] MEDS: Omeprazole 40 MG CAPSULE.DR PO (06:34)
[2022-01-01 08:02] VITALS: BP 137/85; PULSE 74; TEMP 36.5; O2SAT 98
[2022-01-01] MEDS: amantadine HCL 100 MG CAPSULE PO ×2 (08:09→20:18)
[2022-01-01] MEDS: Sucralfate 1 GM TABLET PO ×3 (08:09→20:18)
[2022-01-01] MEDS: Losartan Potassium 25 MG TABLET 12.5 MG PO (08:09)
[2022-01-01 09:42] LABS: Copper, serum 154 mcg/dL (70-175)
[2022-01-01] MEDS: LORazepam 1 MG TABLET PO (11:43)
[2022-01-01 17:06] LABS: Copper,Urine 24 Hr 9 mcg/24 h (15-60); Total Volume 24 Ur 1300 mL
--- NOTE | 2022-01-01 17:44 | HO.PSYCHPN ---
Subjective Subjective Date of Service: 01/01/22 Reason For Visit: unspecified bipolar and related d/o Subjective Notes: Section 7 Healthcare Proxy: Yes Interim History: Met with pt, , Zander KIM, Blayne Henley RN and Dr. Inman. Discussed Section VII, pt declining to sign CV even though he is participating in treatment, and legal will consider activation of HCP ( is HCP currently). Discussed medical testing thus far-pt is cleared medically by internal med and neurology. He believes he has GI cancer but will not allow testing. ECT was discussed-pt not wanting this treatment. approves of ECT trial. Pt anxious stuck. Discussed Lorazepam trial which reports has helped in the past. Medication Compliance: Yes Side effects from medications: No Attending Groups: No Review of Systems Acute medical concerns: No Medical Review of Systems: unchanged Review of Systems Constitutional: Reports daytime sleepiness, Reports fatigue, Reports lethargy and Reports weakness Cardiovascular: Reports as per HPI Respiratory: Reports no additional respiratory complaints Gastrointestinal: Reports no additional gastrointestinal complaints Musculoskeletal: Reports muscle cramps and Reports other (reports gout like pain in L foot) Reports Neuro-related abnormal movements, Reports confusion, Reports memory loss and Reports weakness Psychiatric: Reports anxiety, Reports confusion, Reports depression, Reports hopelessness, Reports memory loss and Reports suicidal ideation (denies) Endocrine: Reports fatigue Hematologic/Lymphatic: Reports no additional hematologic/lymphatic complaints Mental Status Exam Mental Status Exam Narrative: Patient Appearance:?Fatigued and Appropriate Patient Orientation:?Person, Place Level of Consciousness:?Alert Patient Behavior:?withdrawn Mood Description:?Flat Affect Description:?Flat Patient Cognition Impaired:?poor attention Ability to Follow Directions:?Good Speech Pattern:?Difficulty Finding Words with slowed mentation Memory Description:?Episodic Impaired Hallucinations:?None Delusions:?Not Present Thought Process:?Disoriented intermittently Distracted can be concrete Thought Content:?positive for [place], positive for Circumstantial and positive for Suicidal Ideation (denies) Depressive Symptoms:?Increased Anxiety, Diff. Making Decisions, Loss of Int. in Activity, Hopelessness, Isolating-Friends/Family, Increased Fatigue, Thoughts of /Suicide (denies) and Loss of Energy Judgement:?Fair Diagnostics Vital Signs (24Hr): Vital Signs - 24 hr 12/31/21 18:19 01/01/22 08:02 Temperature 98.3 F 97.7 F Pulse Rate 73 74 Blood Pressure 132/77 137/85 Pulse Oximetry 98 BMI result Body Mass Index 29.1 Labs Results: 12/27/21 08:11 12/22/21 14:57 Labs: Laboratory Results - last 48 hr 12/27/21 12/27/21 12/27/21 08:00 08:00 08:11 Ur Arsenic 24 Hour <10 Urine Cadmium 24 Hour <0.5 Serum Copper 154 Ur Total Volume 1300 Ur Copper 24 Hr 9 L Urine Lead 24 Hour <10 Urine Mercury 24 Hour <4 Imaging Radiology Impressions: ITS Impressions Foot X-Ray 11/08/21 17:32 IMPRESSION: Tiny Achilles heel spur. Otherwise unremarkable appearance of the left foot. Cervical Spine X-Ray 11/22/21 14:50 IMPRESSION: No fracture or malalignment. Mild degenerative changes. Forearm X-Ray 11/22/21 14:50 IMPRESSION: No acute fractures or malalignment within the imaged left upper extremity. Hip X-Ray 11/22/21 14:50 IMPRESSION: No acute fractures or malalignment. Humerus X-Ray 11/22/21 14:50 IMPRESSION: No acute fractures or malalignment within the imaged left upper extremity. Shoulder X-Ray 11/22/21 14:50 IMPRESSION: No acute fractures or malalignment within the imaged left upper extremity. Head CT 12/22/21 16:42 IMPRESSION: No acute intracranial pathology. Hand X-Ray 12/25/21 08:38 IMPRESSION: No soft tissue foreign body seen. Brain MRI 12/25/21 09:20 IMPRESSION: No acute intracranial findings. No acute infarcts. There is mild chronic microangiopathy. No pathologic enhancement. Lumbar Puncture Fluoroscopy 12/27/21 14:00 IMPRESSION: Successful ultrasound-guided lumbar puncture performed without immediate complications. Medications Medications Current Medications Acetaminophen (Acetaminophen 325 Mg Tablet) 650 mg PO Q6H PRN PRN Reason: Headache/Pain Mild Scale (1-3) Al Hydroxide/Mg Hydroxide (Magnesium Hydrox/Alum Hydrox 30 Ml Oral.Susp) 30 ml PO Q6H PRN PRN Reason: Heartburn/Nausea Amantadine HCl (Amantadine Hcl 100 Mg Capsule) 100 mg PO BID [facility] Last Admin: 01/01/22 08:09 Dose: 100 mg Documented by: Enoxaparin Sodium (Enoxaparin Sodium 40 Mg/0.4 Ml Syringe) 40 mg SUBCUT 2100 [facility] Last Admin: 12/25/21 19:24 Dose: 40 mg Documented by: Ferrous Sulfate (Ferrous Sulfate 324 Mg Tablet.) 324 mg PO BEDTIME [facility] Last Admin: 12/31/21 20:37 Dose: 324 mg Documented by: Hydroxyzine HCl (Hydroxyzine Hcl 25 Mg Tablet) 25 mg PO Q6H PRN PRN Reason: Anxiety Last Admin: 12/16/21 22:28 Dose: 25 mg Documented by: Lidocaine (Lidocaine 4 % Patch Adh..Patch) 1 patch TRANSDERMA DAILY [facility]; Protocol Last Admin: 01/01/22 08:39 Dose: Not Given Documented by: Loperamide HCl (Loperamide Hcl 2 Mg Capsule) 2 mg PO Q6H PRN PRN Reason: Diarrhea Last Admin: 11/17/21 13:40 Dose: 2 mg Documented by: Lorazepam (Lorazepam 1 Mg Tablet) 1 mg PO DAILY [facility] Last Admin: 01/01/22 11:43 Dose: 1 mg Documented by: Lorazepam (Lorazepam 0.5 Mg Tablet) 0.5 mg PO Q4H PRN PRN Reason: Anxiety Losartan Potassium (Losartan Potassium 25 Mg Tablet) 12.5 mg PO DAILY [facility]; Protocol Last Admin: 01/01/22 08:09 Dose: 12.5 mg Documented by: Magnesium Hydroxide (Milk Of Magnesia 30 Ml Oral.Susp) 30 ml PO DAILY PRN PRN Reason: Constipation Omeprazole (Omeprazole 40 Mg Capsule.) 40 mg PO DAILY@0630 [facility] Last Admin: 01/01/22 06:34 Dose: 40 mg Documented by: Psyllium Hydrophilic Mucilloid (Psyllium Seed 3.4 Gm Powd.Pack) 3.4 gm PO BEDTIME [facility] Last Admin: 12/31/21 20:38 Dose: Not Given Documented by: Risperidone (Risperidone 1 Mg Tablet) 1 mg PO BEDTIME [facility] Last Admin: 12/31/21 20:36 Dose: 1 mg Documented by: Sertraline HCl (Sertraline Hcl 100 Mg Tablet) 100 mg PO BEDTIME [facility] Last Admin: 12/31/21 20:37 Dose: 100 mg Documented by: Sucralfate (Sucralfate 1 Gm Tablet) 1 gm PO TID [facility] Last Admin: 01/01/22 14:17 Dose: 1 gm Documented by: Trazodone HCl (Trazodone Hcl 50 Mg Tablet) 50 mg PO BEDTIME PRN PRN Reason: Insomnia Allergies Allergies Allergy/AdvReac Type Severity Reaction Status Date / Time No Known Allergies Allergy Unverified 11/07/21 21:23 Assessment & Plan Assessment & Plan (1) Encephalopathy chronic: Status: Acute Code(s): G93.49 - Other encephalopathy Assessment and Plan: At this time no definitive neurological diagnosis is made. His overall mental situation is not suggestive of a dementing illness. It suggested a subacute neurological, so far under diagnosed, or psychiatric illness. Multiple tests have been negative and I am waiting for further a reference labs on CSF. As initial CSF findings were negative or normal, I do not recommend any treatment, other than symptomatic psychiatric therapies. As far as further testing with functional imaging such as PET scan or SPECT scan is concerned, these type of investigations do not provide any specific diagnosis and may not lead to any meaningful conclusion. Neuro psychological evaluation can be tried when he is somewhat better and able to cooperate and sit for an interview. (2) MDD (major depressive disorder), recurrent, severe, with psychosis: Status: Acute Code(s): F33.3 - Major depressive disorder, recurrent, severe with psychotic symptoms Plan 01/01/22: Trial of Lorazeapm Increase Risperdal to 1 mg bid Trial of Cymbalta 20 mg daily I spent 60 minutes with the patient and/or on the patient floor today, greater than?50% of which was spent counseling/coordinating care. Patient educated on: diagnosis, medication risk/benefits, ECT and therapeutic strategies Informed Consent: further education needed Reason for contiued inpatient stay Substantial Risk for: inability to function, rapid decompensation and med/psych decompensation
[2022-01-01 18:36] VITALS: BP 124/77; PULSE 73; TEMP 36.7
[2022-01-01] MEDS: risperiDONE 1 MG TABLET PO (20:18)
[2022-01-01] MEDS: Sertraline HCL 100 MG TABLET PO (20:18)
[2022-01-01] MEDS: Ferrous Sulfate 324 MG TABLET.DR PO (20:18)
[2022-01-02 06:00] VITALS: BP 88/56; PULSE 95; TEMP 37.3; O2SAT 98
[2022-01-02] MEDS: Omeprazole 40 MG CAPSULE.DR PO (06:25)
[2022-01-02] MEDS: risperiDONE 1 MG TABLET PO ×2 (08:44→21:15)
[2022-01-02] MEDS: Sucralfate 1 GM TABLET PO ×3 (08:44→21:15)
[2022-01-02] MEDS: LORazepam 1 MG TABLET PO (08:44)
[2022-01-02] MEDS: DULoxetine HCl 20 MG CAPSULE.DR PO (08:44)
[2022-01-02] MEDS: amantadine HCL 100 MG CAPSULE PO ×2 (08:44→21:14)
[2022-01-02 18:00] VITALS: BP 135/75; PULSE 84; TEMP 36.6; O2SAT 98
--- NOTE | 2022-01-02 18:53 | P.PNPSI_ITS ---
Subjective Subjective Date of Service: 01/02/22 Reason For Visit: unspecified bipolar and related d/o Interim History: Tolerating medicine changes thus far-Cymbalta 20 mg daily, Lorazepam, increase in Risperdal. Discussed activation of HCP-no word yet if this will be possible. Pt reviewed concerns-believes he has a terminal process ongoing which we cannot identify. Believes he will never be able to return home. Fears ECT. Medication Compliance: Yes Side effects from medications: No Attending Groups: No Review of Systems Acute medical concerns: No Medical Review of Systems: unchanged Review of Systems Reports behavioral changes Psychiatric: Reports anxiety, Reports behavioral changes, Reports depression, Reports difficulty concentrating, Reports hopelessness, Reports paranoia and Reports suicidal ideation (denies) Mental Status Exam Mental Status Exam Narrative: Patient Appearance:?Fatigued and Appropriate Patient Orientation:?Person, Place Level of Consciousness:?Alert Patient Behavior:?withdrawn Mood Description:?Flat Affect Description:?Flat Patient Cognition Impaired:?poor attention Ability to Follow Directions:?Good Speech Pattern:?Difficulty Finding Words with slowed mentation Memory Description:?Episodic Impaired Hallucinations:?None Delusions:?Not Present Thought Process:?Disoriented intermittently Distracted can be concrete Thought Content:?positive for [place], positive for Circum[place] and positive for Suicidal Ideation (denies) Depressive Symptoms:?Increased Anxiety, Diff. Making Decisions, Loss of Int. in Activity, Hopelessness, Isolating-Friends/Family, Increased Fatigue, Thoughts of /Suicide (denies) and Loss of Energy Judgement:?Fair Diagnostics Vital Signs (24Hr): Vital Signs - 24 hr 01/02/22 06:00 Temperature 99.1 F Pulse Rate 95 Blood Pressure 88/56 L Pulse Oximetry 98 BMI result Body Mass Index 29.1 Labs Results: 12/27/21 08:11 12/22/21 14:57 Labs: Laboratory Results - last 48 hr 12/27/21 12/27/21 12/27/21 08:00 08:00 08:11 Ur Arsenic 24 Hour <10 Urine Cadmium 24 Hour <0.5 Serum Copper 154 Ur Total Volume 1300 Ur Copper 24 Hr 9 L Urine Lead 24 Hour <10 Urine Mercury 24 Hour <4 Imaging Radiology Impressions: ITS Impressions Foot X-Ray 11/08/21 17:32 IMPRESSION: Tiny Achilles heel spur. Otherwise unremarkable appearance of the left foot. Cervical Spine X-Ray 11/22/21 14:50 IMPRESSION: No fracture or malalignment. Mild degenerative changes. Forearm X-Ray 11/22/21 14:50 IMPRESSION: No acute fractures or malalignment within the imaged left upper extremity. Hip X-Ray 11/22/21 14:50 IMPRESSION: No acute fractures or malalignment. Humerus X-Ray 11/22/21 14:50 IMPRESSION: No acute fractures or malalignment within the imaged left upper extremity. Shoulder X-Ray 11/22/21 14:50 IMPRESSION: No acute fractures or malalignment within the imaged left upper extremity. Head CT 12/22/21 16:42 IMPRESSION: No acute intracranial pathology. Hand X-Ray 12/25/21 08:38 IMPRESSION: No soft tissue foreign body seen. Brain MRI 12/25/21 09:20 IMPRESSION: No acute intracranial findings. No acute infarcts. There is mild chronic microangiopathy. No pathologic enhancement. Lumbar Puncture Fluoroscopy 12/27/21 14:00 IMPRESSION: Successful ultrasound-guided lumbar puncture performed without immediate complications. Medications Medications Current Medications Acetaminophen (Acetaminophen 325 Mg Tablet) 650 mg PO Q6H PRN PRN Reason: Headache/Pain Mild Scale (1-3) Al Hydroxide/Mg Hydroxide (Magnesium Hydrox/Alum Hydrox 30 Ml Oral.Susp) 30 ml PO Q6H PRN PRN Reason: Heartburn/Nausea Amantadine HCl (Amantadine Hcl 100 Mg Capsule) 100 mg PO BID [facility] Last Admin: 01/02/22 08:44 Dose: 100 mg Documented by: Duloxetine HCl (Duloxetine Hcl 20 Mg Capsule.) 20 mg PO DAILY [facility] Last Admin: 01/02/22 08:44 Dose: 20 mg Documented by: Enoxaparin Sodium (Enoxaparin Sodium 40 Mg/0.4 Ml Syringe) 40 mg SUBCUT 2100 [facility] Last Admin: 12/25/21 19:24 Dose: 40 mg Documented by: Ferrous Sulfate (Ferrous Sulfate 324 Mg Tablet.) 324 mg PO BEDTIME [facility] Last Admin: 01/01/22 20:18 Dose: 324 mg Documented by: Hydroxyzine HCl (Hydroxyzine Hcl 25 Mg Tablet) 25 mg PO Q6H PRN PRN Reason: Anxiety Last Admin: 12/16/21 22:28 Dose: 25 mg Documented by: Lidocaine (Lidocaine 4 % Patch Adh..Patch) 1 patch TRANSDERMA DAILY [facility]; Protocol Last Admin: 01/02/22 08:44 Dose: Not Given Documented by: Loperamide HCl (Loperamide Hcl 2 Mg Capsule) 2 mg PO Q6H PRN PRN Reason: Diarrhea Last Admin: 11/17/21 13:40 Dose: 2 mg Documented by: Lorazepam (Lorazepam 1 Mg Tablet) 1 mg PO DAILY [facility] Last Admin: 01/02/22 08:44 Dose: 1 mg Documented by: Lorazepam (Lorazepam 0.5 Mg Tablet) 0.5 mg PO Q4H PRN PRN Reason: Anxiety Losartan Potassium (Losartan Potassium 25 Mg Tablet) 12.5 mg PO DAILY [facility]; Protocol Last Admin: 01/02/22 08:45 Dose: Not Given Documented by: Magnesium Hydroxide (Milk Of Magnesia 30 Ml Oral.Susp) 30 ml PO DAILY PRN PRN Reason: Constipation Omeprazole (Omeprazole 40 Mg Capsule.Dr) 40 mg PO DAILY@0630 [facility] Last Admin: 01/02/22 06:25 Dose: 40 mg Documented by: Psyllium Hydrophilic Mucilloid (Psyllium Seed 3.4 Gm Powd.Pack) 3.4 gm PO BEDTIME [facility] Last Admin: 01/01/22 19:47 Dose: Not Given Documented by: Risperidone (Risperidone 1 Mg Tablet) 1 mg PO BID [facility] Last Admin: 01/02/22 08:44 Dose: 1 mg Documented by: Sertraline HCl (Sertraline Hcl 100 Mg Tablet) 100 mg PO BEDTIME [facility] Last Admin: 01/01/22 20:18 Dose: 100 mg Documented by: Sucralfate (Sucralfate 1 Gm Tablet) 1 gm PO TID [facility] Last Admin: 01/02/22 14:16 Dose: 1 gm Documented by: Trazodone HCl (Trazodone Hcl 50 Mg Tablet) 50 mg PO BEDTIME PRN PRN Reason: Insomnia Allergies Allergies Allergy/AdvReac Type Severity Reaction Status Date / Time No Known Allergies Allergy Unverified 11/07/21 21:23 Assessment & Plan Assessment & Plan (1) Encephalopathy chronic: Status: Acute Code(s): G93.49 - Other encephalopathy Assessment and Plan: At this time no definitive neurological diagnosis is made. His overall mental situation is not suggestive of a dementing illness. It suggested a subacute neurological, so far under diagnosed, or psychiatric illness. Multiple tests have been negative and I am waiting for further a reference labs on CSF. As initial CSF findings were negative or normal, I do not recommend any treatment, other than symptomatic psychiatric therapies. As far as further testing with functional imaging such as PET scan or SPECT scan is concerned, these type of in vestigations do not provide any specific diagnosis and may not lead to any meaningful conclusion. Neuro psychological evaluation can be tried when he is somewhat better and able to cooperate and sit for an interview. (2) MDD (major depressive disorder), recurrent, severe, with psychosis: Status: Acute Code(s): F33.3 - Major depressive disorder, recurrent, severe with psychotic symptoms Plan 01/01/22: Trial of Lorazeapm Increase Risperdal to 1 mg bid Trial of Cymbalta 20 mg daily 01/02/22: Continue current plan. Tolerating changes thus far. Await guidance regarding HCP being accepted by the court. I spent 25 minutes with the patient and/or on the patient floor today, greater than?50% of which was spent counseling/coordinating care. Patient educated on: medication risk/benefits, ECT and therapeutic strategies Informed Consent: does not understand and further education needed Reason for contiued inpatient stay Substantial Risk for: inability to function, rapid decompensation and med/psych decompensation
[2022-01-02] MEDS: Ferrous Sulfate 324 MG TABLET.DR PO (21:14)
[2022-01-02] MEDS: Sertraline HCL 100 MG TABLET PO (21:15)
[2022-01-02 22:42] LABS: DNAds, Crithidia Antibody Negative (Negative)
[2022-01-02 23:07] LABS: Lyme IgG CSF Immunoblot NO BANDS DETECTED; Lyme IgM CSF Immunoblot NO BANDS DETECTED
[2022-01-03 06:00] VITALS: BP 117/76; TEMP 36.9
[2022-01-03] MEDS: Sucralfate 1 GM TABLET PO ×3 (09:08→19:39)
[2022-01-03] MEDS: Omeprazole 40 MG CAPSULE.DR PO (09:08)
[2022-01-03] MEDS: amantadine HCL 100 MG CAPSULE PO ×2 (09:08→19:39)
[2022-01-03] MEDS: risperiDONE 1 MG TABLET PO ×2 (09:08→19:40)
[2022-01-03] MEDS: DULoxetine HCl 20 MG CAPSULE.DR PO (09:08)
[2022-01-03] MEDS: LORazepam 1 MG TABLET PO (09:08)
--- NOTE | 2022-01-03 16:58 | HO.PSYCHPN ---
Subjective Subjective Date of Service: 01/03/22 Reason For Visit: unspecified bipolar and related d/o Subjective Notes: Section 7 Healthcare Proxy: Yes Guardianship: No Medical Problems Affecting Mental Status: No Interim History: Pt asks that Losartan be discontinued as well as Lidocaine patch. Discussed med changes today. Tolerating without SE he reports. Discussed HCP activation. Pt's will come this evening to sign. 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 Medication Compliance: Yes Side effects from medications: No Attending Groups: No Review of Systems Acute medical concerns: No Medical Review of Systems: unchanged Review of Systems Reports behavioral changes Psychiatric: Reports anxiety, Reports behavioral changes, Reports depression, Reports difficulty concentrating, Reports hopelessness, Reports paranoia and Reports suicidal ideation (denies) Mental Status Exam Mental Status Exam Narrative: Patient Appearance:?Fatigued and Appropriate Patient Orientation:?Person, Place Level of Consciousness:?Alert Patient Behavior:?withdrawn Mood Description:?Flat Affect Description:?Flat Patient Cognition Impaired:?poor attention Ability to Follow Directions:?Good Speech Pattern:?Difficulty Finding Words with slowed mentation Memory Description:?Episodic Impaired Hallucinations:?None Delusions:?Not Present Thought Process:?Disoriented intermittently Distracted can be concrete Thought Content:?positive for [place], positive for Circumstantial and positive for Suicidal Ideation (denies) Depressive Symptoms:?Increased Anxiety, Diff. Making Decisions, Loss of Int. in Activity, Hopelessness, Isolating-Friends/Family, Increased Fatigue, Thoughts of /Suicide (denies) and Loss of Energy Judgement:?Fair Diagnostics Vital Signs (24Hr): Vital Signs - 24 hr 01/02/22 18:00 01/03/22 06:00 Temperature 97.9 F 98.4 F Pulse Rate 84 Blood Pressure 135/75 117/76 Pulse Oximetry 98 BMI result Body Mass Index 29.1 Labs Results: 12/27/21 08:11 12/22/21 14:57 Labs: Laboratory Results - last 48 hr 12/27/21 12/27/21 12/27/21 08:00 08:11 13:50 CSF Lyme IgG (Immblot) NO BANDS DETECTED CSF Lyme IgM (Immblot) NO BANDS DETECTED Ur Total Volume 1300 Ur Copper 24 Hr 9 L Anti-ds DNA (Crithidia) Negative Imaging Radiology Impressions: ITS Impressions Foot X-Ray 11/08/21 17:32 IMPRESSION: Tiny Achilles heel spur. Otherwise unremarkable appearance of the left foot. Cervical Spine X-Ray 11/22/21 14:50 IMPRESSION: No fracture or malalignment. Mild degenerative changes. Forearm X-Ray 11/22/21 14:50 IMPRESSION: No acute fractures or malalignment within the imaged left upper extremity. Hip X-Ray 11/22/21 14:50 IMPRESSION: No acute fractures or malalignment. Humerus X-Ray 11/22/21 14:50 IMPRESSION: No acute fractures or malalignment within the imaged left upper extremity. Shoulder X-Ray 11/22/21 14:50 IMPRESSION: No acute fractures or malalignment within the imaged left upper extremity. Head CT 12/22/21 16:42 IMPRESSION: No acute intracranial pathology. Hand X-Ray 12/25/21 08:38 IMPRESSION: No soft tissue foreign body seen. Brain MRI 12/25/21 09:20 IMPRESSION: No acute intracranial findings. No acute infarcts. There is mild chronic microangiopathy. No pathologic enhancement. Lumbar Puncture Fluoroscopy 12/27/21 14:00 IMPRESSION: Successful ultrasound-guided lumbar puncture performed without immediate complications. Medications Medications Current Medications Acetaminophen (Acetaminophen 325 Mg Tablet) 650 mg PO Q6H PRN PRN Reason: Headache/Pain Mild Scale (1-3) Al Hydroxide/Mg Hydroxide (Magnesium Hydrox/Alum Hydrox 30 Ml Oral.Susp) 30 ml PO Q6H PRN PRN Reason: Heartburn/Nausea Amantadine HCl (Amantadine Hcl 100 Mg Capsule) 100 mg PO BID [facility] Last Admin: 01/03/22 09:08 Dose: 100 mg Documented by: Duloxetine HCl (Duloxetine Hcl 20 Mg Capsule.) 20 mg PO DAILY [facility] Last Admin: 01/03/22 09:08 Dose: 20 mg Documented by: Enoxaparin Sodium (Enoxaparin Sodium 40 Mg/0.4 Ml Syringe) 40 mg SUBCUT 2100 [facility] Last Admin: 12/25/21 19:24 Dose: 40 mg Documented by: Ferrous Sulfate (Ferrous Sulfate 324 Mg Tablet.) 324 mg PO BEDTIME [facility] Last Admin: 01/02/22 21:14 Dose: 324 mg Documented by: Hydroxyzine HCl (Hydroxyzine Hcl 25 Mg Tablet) 25 mg PO Q6H PRN PRN Reason: Anxiety Last Admin: 12/16/21 22:28 Dose: 25 mg Documented by: Loperamide HCl (Loperamide Hcl 2 Mg Capsule) 2 mg PO Q6H PRN PRN Reason: Diarrhea Last Admin: 11/17/21 13:40 Dose: 2 mg Documented by: Lorazepam (Lorazepam 1 Mg Tablet) 1 mg PO DAILY [facility] Last Admin: 01/03/22 09:08 Dose: 1 mg Documented by: Lorazepam (Lorazepam 0.5 Mg Tablet) 0.5 mg PO Q4H PRN PRN Reason: Anxiety Magnesium Hydroxide (Milk Of Magnesia 30 Ml Oral.Susp) 30 ml PO DAILY PRN PRN Reason: Constipation Omeprazole (Omeprazole 40 Mg Capsule.Dr) 40 mg PO DAILY@0630 [facility] Last Admin: 01/03/22 09:08 Dose: 40 mg Documented by: Psyllium Hydrophilic Mucilloid (Psyllium Seed 3.4 Gm Powd.Pack) 3.4 gm PO BEDTIME [facility] Last Admin: 01/02/22 22:31 Dose: Not Given Documented by: Risperidone (Risperidone 1 Mg Tablet) 1 mg PO BID [facility] Last Admin: 01/03/22 09:08 Dose: 1 mg Documented by: Sertraline HCl (Sertraline Hcl 100 Mg Tablet) 100 mg PO BEDTIME [facility] Last Admin: 01/02/22 21:15 Dose: 100 mg Documented by: Sucralfate (Sucralfate 1 Gm Tablet) 1 gm PO TID [facility] Last Admin: 01/03/22 14:30 Dose: 1 gm Documented by: Trazodone HCl (Trazodone Hcl 50 Mg Tablet) 50 mg PO BEDTIME PRN PRN Reason: Insomnia Allergies Allergies Allergy/AdvReac Type Severity Reaction Status Date / Time No Known Allergies Allergy Unverified 11/07/21 21:23 Assessment & Plan Assessment & Plan (1) Encephalopathy chronic: Status: Acute Code(s): G93.49 - Other encephalopathy Assessment and Plan: At this time no definitive neurological diagnosis is made. His overall mental situation is not suggestive of a dementing illness. It suggested a subacute neurological, so far under diagnosed, or psychiatric illness. Multiple tests have been negative and I am waiting for further a reference labs on CSF. As initial CSF findings were negative or normal, I do not recommend any treatment, other than symptomatic psychiatric therapies. As far as further testing with functional imaging such as PET scan or SPECT scan is concerned, these type of investigations do not provide any specific diagnosis and may not lead to any meaningful conclusion. Neuro psychological evaluation can be tried when he is somewhat better and able to cooperate and sit for an interview. (2) MDD (major depressive disorder), recurrent, severe, with psychosis: Status: Acute Code(s): F33.3 - Major depressive disorder, recurrent, severe with psychotic symptoms Plan 01/01/22: Trial of Lorazeapm Increase Risperdal to 1 mg bid Trial of Cymbalta 20 mg daily 01/02/22: Continue current plan. Tolerating changes thus far. Await guidance regarding HCP being accepted by the court. 01/03/22: Tolerating increase of Risperdal, initiation of Ativan, Cymbalta Copper level is low-will follow with albumin, zinc levels I spent 25 minutes with the patient and/or on the patient floor today, greater than?50% of which was spent counseling/coordinating care. Informed Consent: does not understand Reason for contiued inpatient stay Substantial Risk for: inability to function and rapid decompensation
[2022-01-03 18:00] VITALS: BP 123/78; PULSE 78; RESP 16; TEMP 36.3; O2SAT 98
[2022-01-03] MEDS: Sertraline HCL 100 MG TABLET PO (19:39)
[2022-01-03] MEDS: Ferrous Sulfate 324 MG TABLET.DR PO (19:40)
[2022-01-04 06:00] VITALS: BP 120/60; PULSE 74; RESP 14; TEMP 36.3; O2SAT 97
[2022-01-04] MEDS: Omeprazole 40 MG CAPSULE.DR PO (06:17)
[2022-01-04] MEDS: amantadine HCL 100 MG CAPSULE PO ×2 (08:27→20:07)
[2022-01-04] MEDS: risperiDONE 1 MG TABLET PO ×2 (08:27→20:07)
[2022-01-04] MEDS: LORazepam 1 MG TABLET PO (08:27)
[2022-01-04] MEDS: DULoxetine HCl 20 MG CAPSULE.DR PO (08:27)
[2022-01-04] MEDS: Sucralfate 1 GM TABLET PO ×3 (08:27→20:07)
[2022-01-04 08:54] LABS: Albumin Level 3.7 g/dL (3.5-5.0)
--- NOTE | 2022-01-04 15:23 | HO.PSYCHPN ---
Subjective Subjective Date of Service: 01/04/22 Reason For Visit: unspecified bipolar and related d/o Subjective Notes: Section 7 Healthcare Proxy: Yes Guardianship: No Medical Problems Affecting Mental Status: No Interim History: Patient seen in psychiatric follow-up. Patient has mostly been withdrawn and in bed. He answers most questions with coulee or apathetic LEEP. He will not explain or cannot explain why he will not sign an he does continue to refuse to sign a conditional voluntary continues to feel he is dying but cannot give any explanation or engage in a reasonable dialogue regarding this he denies active SI Medication Compliance: Yes Side effects from medications: No Attending Groups: No Review of Systems Acute medical concerns: No Medical Review of Systems: unchanged Mental Status Exam Mental Status Exam Narrative: Patient Appearance:?Fatigued and Appropriate Patient Orientation:?Person, Place Level of Consciousness:?Alert Patient Behavior:?withdrawn Mood Description:?Flat Affect Description:?Flat Patient Cognition Impaired:?poor attention Ability to Follow Directions:?Good Speech Pattern:?Difficulty Finding Words with slowed mentation Memory Description:?Episodic Impaired Hallucinations:?None Delusions:?Not Present Thought Process:?Disoriented intermittently Distracted can be concrete Thought Content:?positive for [place], positive for Circumstantial and positive for Suicidal Ideation (denies) Depressive Symptoms:?Increased Anxiety, Diff. Making Decisions, Loss of Int. in Activity, Hopelessness, Isolating-Friends/Family, Increased Fatigue, Thoughts of /Suicide (denies) and Loss of Energy Judgement:?Fair Diagnostics Vital Signs (24Hr): Vital Signs - 24 hr 01/03/22 18:00 01/04/22 06:00 Temperature 97.3 F 97.4 F Pulse Rate 78 74 Respiratory Rate 16 14 Blood Pressure 123/78 120/60 Pulse Oximetry 98 97 BMI result Body Mass Index 29.1 Labs Results: 12/27/21 08:11 12/22/21 14:57 Labs: Laboratory Results - last 48 hr 12/27/21 12/27/21 12/27/21 08:11 13:50 13:50 Albumin CSF Lyme IgG (Immblot) NO BANDS DETECTED CSF Lyme IgM (Immblot) NO BANDS DETECTED Anti-ds DNA Titer (Crith) TNP Anti-ds DNA (Crithidia) Negative Ref Lab Test Result See Note 01/04/22 08:12 Albumin 3.7 CSF Lyme IgG (Immblot) CSF Lyme IgM (Immblot) Anti-ds DNA Titer (Crith) Anti-ds DNA (Crithidia) Ref Lab Test Result Imaging Radiology Impressions: ITS Impressions Foot X-Ray 11/08/21 17:32 IMPRESSION: Tiny Achilles heel spur. Otherwise unremarkable appearance of the left foot. Cervical Spine X-Ray 11/22/21 14:50 IMPRESSION: No fracture or malalignment. Mild degenerative changes. Forearm X-Ray 11/22/21 14:50 IMPRESSION: No acute fractures or malalignment within the imaged left upper extremity. Hip X-Ray 11/22/21 14:50 IMPRESSION: No acute fractures or malalignment. Humerus X-Ray 11/22/21 14:50 IMPRESSION: No acute fractures or malalignment within the imaged left upper extremity. Shoulder X-Ray 11/22/21 14:50 IMPRESSION: No acute fractures or malalignment within the imaged left upper extremity. Head CT 12/22/21 16:42 IMPRESSION: No acute intracranial pathology. Hand X-Ray 12/25/21 08:38 IMPRESSION: No soft tissue foreign body seen. Brain MRI 12/25/21 09:20 IMPRESSION: No acute intracranial findings. No acute infarcts. There is mild chronic microangiopathy. No pathologic enhancement. Lumbar Puncture Fluoroscopy 12/27/21 14:00 IMPRESSION: Successful ultrasound-guided lumbar puncture performed without immediate complications. Medications Medications Current Medications Acetaminophen (Acetaminophen 325 Mg Tablet) 650 mg PO Q6H PRN PRN Reason: Headache/Pain Mild Scale (1-3) Al Hydroxide/Mg Hydroxide (Magnesium Hydrox/Alum Hydrox 30 Ml Oral.Susp) 30 ml PO Q6H PRN PRN Reason: Heartburn/Nausea Amantadine HCl (Amantadine Hcl 100 Mg Capsule) 100 mg PO BID [facility] Last Admin: 01/04/22 08:27 Dose: 100 mg Documented by: Duloxetine HCl (Duloxetine Hcl 20 Mg Capsule.) 20 mg PO DAILY [facility] Last Admin: 01/04/22 08:27 Dose: 20 mg Documented by: Enoxaparin Sodium (Enoxaparin Sodium 40 Mg/0.4 Ml Syringe) 40 mg SUBCUT 2100 [facility] Last Admin: 12/25/21 19:24 Dose: 40 mg Documented by: Ferrous Sulfate (Ferrous Sulfate 324 Mg Tablet.) 324 mg PO BEDTIME [facility] Last Admin: 01/03/22 19:40 Dose: 324 mg Documented by: Hydroxyzine HCl (Hydroxyzine Hcl 25 Mg Tablet) 25 mg PO Q6H PRN PRN Reason: Anxiety Last Admin: 12/16/21 22:28 Dose: 25 mg Documented by: Loperamide HCl (Loperamide Hcl 2 Mg Capsule) 2 mg PO Q6H PRN PRN Reason: Diarrhea Last Admin: 11/17/21 13:40 Dose: 2 mg Documented by: Lorazepam (Lorazepam 1 Mg Tablet) 1 mg PO DAILY [facility] Last Admin: 01/04/22 08:27 Dose: 1 mg Documented by: Lorazepam (Lorazepam 0.5 Mg Tablet) 0.5 mg PO Q4H PRN PRN Reason: Anxiety Magnesium Hydroxide (Milk Of Magnesia 30 Ml Oral.Susp) 30 ml PO DAILY PRN PRN Reason: Constipation Omeprazole (Omeprazole 40 Mg Capsule.Dr) 40 mg PO DAILY@0630 [facility] Last Admin: 01/04/22 06:17 Dose: 40 mg Documented by: Psyllium Hydrophilic Mucilloid (Psyllium Seed 3.4 Gm Powd.Pack) 3.4 gm PO BEDTIME [facility] Last Admin: 01/03/22 19:41 Dose: Not Given Documented by: Risperidone (Risperidone 1 Mg Tablet) 1 mg PO BID [facility] Last Admin: 01/04/22 08:27 Dose: 1 mg Documented by: Sertraline HCl (Sertraline Hcl 100 Mg Tablet) 100 mg PO BEDTIME [facility] Last Admin: 01/03/22 19:39 Dose: 100 mg Documented by: Sucralfate (Sucralfate 1 Gm Tablet) 1 gm PO TID [facility] Last Admin: 01/04/22 14:12 Dose: 1 gm Documented by: Trazodone HCl (Trazodone Hcl 50 Mg Tablet) 50 mg PO BEDTIME PRN PRN Reason: Insomnia Allergies Allergies Allergy/AdvReac Type Severity Reaction Status Date / Time No Known Allergies Allergy Unverified 11/07/21 21:23 Assessment & Plan Assessment & Plan (1) Encephalopathy chronic: Status: Acute Code(s): G93.49 - Other encephalopathy Assessment and Plan: At this time no definitive neurological diagnosis is made. His overall mental situation is not suggestive of a dementing illness. It suggested a subacute neurological, so far under diagnosed, or psychiatric illness. Multiple tests have been negative and I am waiting for further a reference labs on CSF. As initial CSF findings were negative or normal, I do not recommend any treatment, other than symptomatic psychiatric therapies. As far as further testing with functional imaging such as PET scan or SPECT scan is concerned, these type of investigations do not provide any specific diagnosis and may not lead to any meaningful conclusion. Neuro psychological evaluation can be tried when he is somewhat better and able to cooperate and sit for an interview. (2) MDD (major depressive disorder), recurrent, severe, with psychosis: Status: Acute Code(s): F33.3 - Major depressive disorder, recurrent, severe with psychotic symptoms Plan 01/01/22: Trial of Lorazeapm Increase Risperdal to 1 mg bid Trial of Cymbalta 20 mg daily 01/02/22: Continue current plan. Tolerating changes thus far. Await guidance regarding HCP being accepted by the court. 01/03/22: Tolerating increase of Risperdal, initiation of Ativan, Cymbalta Copper level is low-will follow with albumin, zinc levels [id number] Patient seen in psychiatric follow-up. Patient is depressed come apathetic and remains illogical and appears to be somatically delusional no new results regarding CSF all medical workup has essentially been negative the patient refuses further medical workup his fears regarding dying from some GI cancer refuses ECT but does not give any input in what he would want. Healthcare proxy has been invoked and needs to be affirmed if patient continues to refuse treatment. ECT remains the most appropriate option mood appears to be psychotic depression I spent minutes with the patient and/or on the patient floor today, greater than?50% of which was spent counseling/coordinating care. Reason for contiued inpatient stay Substantial Risk for: inability to function, rapid decompensation and med/psych decompensation
[2022-01-04 18:00] VITALS: BP 116/64; PULSE 75; RESP 16; TEMP 36.3; O2SAT 98
[2022-01-04] MEDS: Ferrous Sulfate 324 MG TABLET.DR PO (20:07)
[2022-01-04] MEDS: Sertraline HCL 100 MG TABLET PO (20:07)
[2022-01-05 06:00] VITALS: BP 110/68; PULSE 80; RESP 16; TEMP 36.5; O2SAT 98
[2022-01-05] MEDS: Omeprazole 40 MG CAPSULE.DR PO (06:23)
[2022-01-05] MEDS: Sucralfate 1 GM TABLET PO ×3 (08:39→21:31)
[2022-01-05] MEDS: risperiDONE 1 MG TABLET PO ×2 (08:39→21:30)
[2022-01-05] MEDS: DULoxetine HCl 20 MG CAPSULE.DR PO (08:39)
[2022-01-05] MEDS: amantadine HCL 100 MG CAPSULE PO ×2 (08:39→21:30)
[2022-01-05] MEDS: LORazepam 1 MG TABLET PO (08:39)
[2022-01-05 16:30] VITALS: BP 119/77; PULSE 76; TEMP 36.6
--- NOTE | 2022-01-05 17:07 | P.PNPSI_ITS ---
Subjective Subjective Date of Service: 01/05/22 Reason For Visit: unspecified bipolar and related d/o Subjective Notes: Conditional Voluntary Medical Problems Affecting Mental Status: No Interim History: met with patient. Discussed with Nursing. A where there has been an extensive medical workup regarding mood and organic causes noted. Also aware of COVID infection prior to admission. Endorses feeling depressed. Concentration and f ocus very poor. No motivation. Discussed at length depression, which he is unsure if this is present. Discussed objective signs of depression and negative medical workup. Discussed ECT, which he is fearful around regarding focus and concentration. Discussed to focus and concentration can also be part of depression and therefore of ECT treat depression, focus and concentration will also get better. Does endorse feeling hopeless. Denied active SI. Denies psychosis. Medication Compliance: Yes Side effects from medications: No Attending Groups: No Review of Systems Acute medical concerns: No Review of Systems: Unremarkable Mental Status Exam Mental Status Exam Narrative: seen in room. Poor self-care. Isolative. organized. Depressed. Hopeless. No SI. No HI. No agitation. No psychosis. Insight and judgment okay Diagnostics Vital Signs (24Hr): Vital Signs - 24 hr 01/04/22 18:00 01/05/22 06:00 Temperature 97.4 F 97.7 F Pulse Rate 75 80 Respiratory Rate 16 16 Blood Pressure 116/64 110/68 Pulse Oximetry 98 98 BMI result Body Mass Index 29.1 Labs Results: 12/27/21 08:11 12/22/21 14:57 Labs: Laboratory Results - last 48 hr 12/27/21 12/27/21 01/04/22 08:11 13:50 08:12 Albumin 3.7 Anti-ds DNA Titer (Cr[facility]) TNP Ref Lab Test Result See Note Imaging Radiology Impressions: ITS Impressions Foot X-Ray 11/08/21 17:32 IMPRESSION: Tiny Achilles heel spur. Otherwise unremarkable appearance of the left foot. Cervical Spine X-Ray 11/22/21 14:50 IMPRESSION: No fracture or malalignment. Mild degenerative changes. Forearm X-Ray 11/22/21 14:50 IMPRESSION: No acute fractures or malalignment within the imaged left upper extremity. Hip X-Ray 11/22/21 14:50 IMPRESSION: No acute fractures or malalignment. Humerus X-Ray 11/22/21 14:50 IMPRESSION: No acute fractures or malalignment within the imaged left upper extremity. Shoulder X-Ray 11/22/21 14:50 IMPRESSION: No acute fractures or malalignment within the imaged left upper extremity. Head CT 12/22/21 16:42 IMPRESSION: No acute intracranial pathology. Hand X-Ray 12/25/21 08:38 IMPRESSION: No soft tissue foreign body seen. Brain MRI 12/25/21 09:20 IMPRESSION: No acute intracranial findings. No acute infarcts. There is mild chronic microangiopathy. No pathologic enhancement. Lumbar Puncture Fluoroscopy 12/27/21 14:00 IMPRESSION: Successful ultrasound-guided lumbar puncture performed without immediate complications. Medications Medications Current Medications Acetaminophen (Acetaminophen 325 Mg Tablet) 650 mg PO Q6H PRN PRN Reason: Headache/Pain Mild Scale (1-3) Al Hydroxide/Mg Hydroxide (Magnesium Hydrox/Alum Hydrox 30 Ml Oral.Susp) 30 ml PO Q6H PRN PRN Reason: Heartburn/Nausea Amantadine HCl (Amantadine Hcl 100 Mg Capsule) 100 mg PO BID [facility] Last Admin: 01/05/22 08:39 Dose: 100 mg Documented by: Duloxetine HCl (Duloxetine Hcl 20 Mg Capsule.) 20 mg PO DAILY [facility] Last Admin: 01/05/22 08:39 Dose: 20 mg Documented by: Enoxaparin Sodium (Enoxaparin Sodium 40 Mg/0.4 Ml Syringe) 40 mg SUBCUT 2100 [facility] Last Admin: 12/25/21 19:24 Dose: 40 mg Documented by: Ferrous Sulfate (Ferrous Sulfate 324 Mg Tablet.) 324 mg PO BEDTIME [facility] Last Admin: 01/04/22 20:07 Dose: 324 mg Documented by: Hydroxyzine HCl (Hydroxyzine Hcl 25 Mg Tablet) 25 mg PO Q6H PRN PRN Reason: Anxiety Last Admin: 12/16/21 22:28 Dose: 25 mg Documented by: Loperamide HCl (Loperamide Hcl 2 Mg Capsule) 2 mg PO Q6H PRN PRN Reason: Diarrhea Last Admin: 11/17/21 13:40 Dose: 2 mg Documented by: Lorazepam (Lorazepam 1 Mg Tablet) 1 mg PO DAILY [facility] Last Admin: 01/05/22 08:39 Dose: 1 mg Documented by: Lorazepam (Lorazepam 0.5 Mg Tablet) 0.5 mg PO Q4H PRN PRN Reason: Anxiety Magnesium Hydroxide (Milk Of Magnesia 30 Ml Oral.Susp) 30 ml PO DAILY PRN PRN Reason: Constipation Omeprazole (Omeprazole 40 Mg Capsule.Dr) 40 mg PO DAILY@0630 [facility] Last Admin: 01/05/22 06:23 Dose: 40 mg Documented by: Psyllium Hydrophilic Mucilloid (Psyllium Seed 3.4 Gm Powd.Pack) 3.4 gm PO BEDTIME [facility] Last Admin: 01/04/22 20:07 Dose: 3.4 gm Documented by: Risperidone (Risperidone 1 Mg Tablet) 1 mg PO BID [facility] Last Admin: 01/05/22 08:39 Dose: 1 mg Documented by: Sertraline HCl (Sertraline Hcl 100 Mg Tablet) 100 mg PO BEDTIME [facility] Last Admin: 01/04/22 20:07 Dose: 100 mg Documented by: Sucralfate (Sucralfate 1 Gm Tablet) 1 gm PO TID [facility] Last Admin: 01/05/22 14:05 Dose: 1 gm Documented by: Trazodone HCl (Trazodone Hcl 50 Mg Tablet) 50 mg PO BEDTIME PRN PRN Reason: Insomnia Allergies Allergies Allergy/AdvReac Type Severity Reaction Status Date / Time No Known Allergies Allergy Unverified 11/07/21 21:23 Assessment & Plan Assessment & Plan (1) Encephalopathy chronic: Status: Acute Code(s): G93.49 - Other encephalopathy Assessment and Plan: At this time no definitive neurological diagnosis is made. His overall mental situation is not suggestive of a dementing illness. It suggested a subacute neurological, so far under diagnosed, or psychiatric illness. Multiple tests have been negative and I am waiting for further a reference labs on CSF. As initial CSF findings were negative or normal, I do not recommend any treatment, other than symptomatic psychiatric therapies. As far as further testing with functional imaging such as PET scan or SPECT scan is concerned, these type of investigations do not provide any specific diagnosis and may not lead to any meaningful conclusion. Neuro psychological evaluation can be tried when he is somewhat better and able to cooperate and sit for an interview. (2) MDD (major depressive disorder), recurrent, severe, with psychosis: Status: Acute Code(s): F33.3 - Major depressive disorder, recurrent, severe with psychotic symptoms Plan 01/01/22: Trial of Lorazeapm Increase Risperdal to 1 mg bid Trial of Cymbalta 20 mg daily 2/16/22: Continue current plan. Tolerating changes thus far. Await guidance regarding HCP being accepted by the court. 01/03/22: Tolerating increase of Risperdal, initiation of Ativan, Cymbalta Copper level is low-will follow with albumin, zinc levels 01/05: No changes to primary team treatment plan. Ongoing discussion with patient and family around ECT I spent minutes with the patient and/or on the patient floor today, greater than?50% of which was spent counseling/coordinating care. Reason for contiued inpatient stay Substantial Risk for: inability to function
[2022-01-05] MEDS: Ferrous Sulfate 324 MG TABLET.DR PO (21:30)
[2022-01-05] MEDS: Sertraline HCL 100 MG TABLET PO (21:30)
[2022-01-06 06:00] VITALS: BP 128/86; PULSE 92; RESP 16; TEMP 36.8; O2SAT 98
[2022-01-06] MEDS: Omeprazole 40 MG CAPSULE.DR PO (06:02)
[2022-01-06] MEDS: risperiDONE 1 MG TABLET PO ×2 (08:49→20:33)
[2022-01-06] MEDS: Sucralfate 1 GM TABLET PO ×3 (08:49→20:32)
[2022-01-06] MEDS: LORazepam 1 MG TABLET PO (08:50)
[2022-01-06] MEDS: amantadine HCL 100 MG CAPSULE PO ×2 (08:50→20:32)
[2022-01-06] MEDS: DULoxetine HCl 20 MG CAPSULE.DR PO (08:52)
--- NOTE | 2022-01-06 12:21 | HO.PSYCHPN ---
Subjective Subjective Date of Service: 01/06/22 Reason For Visit: unspecified bipolar and related d/o Subjective Notes: Conditional Voluntary Medical Problems Affecting Mental Status: No Interim History: Continues to be depressed isolative. We discussed ongoing pattern of ambivalence, going around in circles and difficulty making decisions. Also discussed balancing knowledge, questions with trusting professionals and also his healthcare proxy to support him with an appropriate decision and best move forward. This was discussed in the context of ECT. He was asking the cost of ECT, but is also aware that he has insurance coverage for same. Otherwise self-care poor. Or sleeping. Hopeless. No active SI. No psychosis. Medication Compliance: Yes Side effects from medications: No Attending Groups: No Review of Systems Acute medical concerns: No Review of Systems Review of Systems Unremarkable Mental Status Exam Mental Status Exam Narrative: In bed. Isolative. Hopeless and poor self-care. Does appear depressed. No active SI. No HI. No overt psychosis noted. Insight and judgment limited Diagnostics Vital Signs (24Hr): Vital Signs - 24 hr 01/05/22 16:30 01/06/22 06:00 Temperature 97.8 F 98.2 F Pulse Rate 76 92 Respiratory Rate 16 Blood Pressure 119/77 128/86 Pulse Oximetry 98 BMI result Body Mass Index 29.1 Labs Results: 12/27/21 08:11 12/22/21 14:57 Labs: Laboratory Results - last 48 hr 12/27/21 13:50 Ref Lab Test Result See Note Imaging Radiology Impressions: ITS Impressions Foot X-Ray 11/08/21 17:32 IMPRESSION: Tiny Achilles heel spur. Otherwise unremarkable appearance of the left foot. Cervical Spine X-Ray 11/22/21 14:50 IMPRESSION: No fracture or malalignment. Mild degenerative changes. Forearm X-Ray 11/22/21 14:50 IMPRESSION: No acute fractures or malalignment within the imaged left upper extremity. Hip X-Ray 11/22/21 14:50 IMPRESSION: No acute fractures or malalignment. Humerus X-Ray 11/22/21 14:50 IMPRESSION: No acute fractures or malalignment within the imaged left upper extremity. Shoulder X-Ray 11/22/21 14:50 IMPRESSION: No acute fractures or malalignment within the imaged left upper extremity. Head CT 12/22/21 16:42 IMPRESSION: No acute intracranial pathology. Hand X-Ray 12/25/21 08:38 IMPRESSION: No soft tissue foreign body seen. Brain MRI 12/25/21 09:20 IMPRESSION: No acute intracranial findings. No acute infarcts. There is mild chronic microangiopathy. No pathologic enhancement. Lumbar Puncture Fluoroscopy 12/27/21 14:00 IMPRESSION: Successful ultrasound-guided lumbar puncture performed without immediate complications. Medications Medications Current Medications Acetaminophen (Acetaminophen 325 Mg Tablet) 650 mg PO Q6H PRN PRN Reason: Headache/Pain Mild Scale (1-3) Al Hydroxide/Mg Hydroxide (Magnesium Hydrox/Alum Hydrox 30 Ml Oral.Susp) 30 ml PO Q6H PRN PRN Reason: Heartburn/Nausea Amantadine HCl (Amantadine Hcl 100 Mg Capsule) 100 mg PO BID [facility] Last Admin: 01/06/22 08:50 Dose: 100 mg Documented by: Duloxetine HCl (Duloxetine Hcl 20 Mg Capsule.) 20 mg PO DAILY [facility] Last Admin: 01/06/22 08:52 Dose: 20 mg Documented by: Enoxaparin Sodium (Enoxaparin Sodium 40 Mg/0.4 Ml Syringe) 40 mg SUBCUT 2100 [facility] Last Admin: 12/25/21 19:24 Dose: 40 mg Documented by: Ferrous Sulfate (Ferrous Sulfate 324 Mg Tablet.) 324 mg PO BEDTIME [facility] Last Admin: 01/05/22 21:30 Dose: 324 mg Documented by: Hydroxyzine HCl (Hydroxyzine Hcl 25 Mg Tablet) 25 mg PO Q6H PRN PRN Reason: Anxiety Last Admin: 12/16/21 22:28 Dose: 25 mg Documented by: Loperamide HCl (Loperamide Hcl 2 Mg Capsule) 2 mg PO Q6H PRN PRN Reason: Diarrhea Last Admin: 11/17/21 13:40 Dose: 2 mg Documented by: Magnesium Hydroxide (Milk Of Magnesia 30 Ml Oral.Susp) 30 ml PO DAILY PRN PRN Reason: Constipation Omeprazole (Omeprazole 40 Mg Capsule.) 40 mg PO DAILY@0630 [facility] Last Admin: 01/06/22 06:02 Dose: 40 mg Documented by: Psyllium Hydrophilic Mucilloid (Psyllium Seed 3.4 Gm Powd.Pack) 3.4 gm PO BEDTIME [facility] Last Admin: 01/05/22 21:32 Dose: Not Given Documented by: Risperidone (Risperidone 1 Mg Tablet) 1 mg PO BID [facility] Last Admin: 01/06/22 08:49 Dose: 1 mg Documented by: Sertraline HCl (Sertraline Hcl 100 Mg Tablet) 100 mg PO BEDTIME [facility] Last Admin: 01/05/22 21:30 Dose: 100 mg Documented by: Sucralfate (Sucralfate 1 Gm Tablet) 1 gm PO TID [facility] Last Admin: 01/06/22 08:49 Dose: 1 gm Documented by: Trazodone HCl (Trazodone Hcl 50 Mg Tablet) 50 mg PO BEDTIME PRN PRN Reason: Insomnia Allergies Allergies Allergy/AdvReac Type Severity Reaction Status Date / Time No Known Allergies Allergy Unverified 11/07/21 21:23 Assessment & Plan Assessment & Plan (1) Encephalopathy chronic: Status: Acute Code(s): G93.49 - Other encephalopathy Assessment and Plan: At this time no definitive neurological diagnosis is made. His overall mental situation is not suggestive of a dementing illness. It suggested a subacute neurological, so far under diagnosed, or psychiatric illness. Multiple tests have been negative and I am waiting for further a reference labs on CSF. As initial CSF findings were negative or normal, I do not recommend any treatment, other than symptomatic psychiatric therapies. As far as further testing with functional imaging such as PET scan or SPECT scan is concerned, these type of investigations do not provide any specific diagnosis and may not lead to any meaningful conclusion. Neuro psychological evaluation can be tried when he is somewhat better and able to cooperate and sit for an interview. (2) MDD (major depressive disorder), recurrent, severe, with psychosis: Status: Acute Code(s): F33.3 - Major depressive disorder, recurrent, severe with psychotic symptoms Assessment and Plan: 01/06: No changes to team's primary treatment plan. Encouraging ECT. Also encouraging working with was his healthcare proxy and primary treatment team around treatment decisions. Plan 01/01/22: Trial of Lorazeapm Increase Risperdal to 1 mg bid Trial of Cymbalta 20 mg daily 01/02/22: Continue current plan. Tolerating changes thus far. Await guidance regarding HCP being accepted by the court. 01/03/22: Tolerating increase of Risperdal, initiation of Ativan, Cymbalta Copper level is low-will follow with albumin, zinc levels [id number] Patient seen in psychiatric follow-up. Patient is depressed come apathetic and remains illogical and appears to be somatically delusional no new results regarding CSF all medical workup has essentially been negative the patient refuses further medical workup his fears regarding dying from some GI cancer refuses ECT but does not give any input in what he would want. Healthcare proxy has been invoked and needs to be affirmed if patient continues to refuse treatment. ECT remains the most appropriate option mood appears to be psychotic depression I spent minutes with the patient and/or on the patient floor today, greater than?50% of which was spent counseling/coordinating care. Patient educated on: diagnosis and therapeutic strategies Reason for contiued inpatient stay Substantial Risk for: inability to function
[2022-01-06 18:00] VITALS: BP 111/68; PULSE 72; TEMP 36.2
[2022-01-06] MEDS: Sertraline HCL 100 MG TABLET PO (20:33)
[2022-01-06] MEDS: Ferrous Sulfate 324 MG TABLET.DR PO (20:33)
[2022-01-07 06:00] VITALS: BP 111/67; PULSE 87; RESP 16; TEMP 36.3; O2SAT 98
[2022-01-07] MEDS: amantadine HCL 100 MG CAPSULE PO ×2 (08:12→20:23)
[2022-01-07] MEDS: risperiDONE 1 MG TABLET PO ×2 (08:12→20:23)
[2022-01-07] MEDS: Sucralfate 1 GM TABLET PO ×3 (08:12→20:23)
[2022-01-07] MEDS: DULoxetine HCl 20 MG CAPSULE.DR PO (08:12)
--- NOTE | 2022-01-07 09:13 | HO.PSYCHPN ---
Subjective Subjective Date of Service: 01/07/22 Reason For Visit: unspecified bipolar and related d/o Subjective Notes: Section 7 Healthcare Proxy: Yes Interim History: Patient was seen and discussed in rounds today. He continues to feel depressed. He is isolative. He is having a hard time making decision pertaining to some treatment recommendations including ECT which she had some questions about. No complaints or side effects. Eating and sleeping adequately. No changes were made today Medication Compliance: Yes Review of Systems Review of Systems Yes all other systems are reviewed and are negative Mental Status Exam Mental Status Exam Narrative: In today's visit he is alert, pleasant and moderately interactive. Speech is normal. Minimal eye contact. Affect is subdued. He appears depressed. No signs of psychosis. No SI. Cognitively he has slow thought processes. Judgment is intact Diagnostics Vital Signs (24Hr): Vital Signs - 24 hr 01/06/22 18:00 01/07/22 06:00 Temperature 97.1 F 97.4 F Pulse Rate 72 87 Respiratory Rate 16 Blood Pressure 111/68 111/67 Pulse Oximetry 98 BMI result Body Mass Index 29.1 Labs Results: 12/27/21 08:11 12/22/21 14:57 Imaging Radiology Impressions: ITS Impressions Foot X-Ray 11/08/21 17:32 IMPRESSION: Tiny Achilles heel spur. Otherwise unremarkable appearance of the left foot. Cervical Spine X-Ray 11/22/21 14:50 IMPRESSION: No fracture or malalignment. Mild degenerative changes. Forearm X-Ray 11/22/21 14:50 IMPRESSION: No acute fractures or malalignment within the imaged left upper extremity. Hip X-Ray 11/22/21 14:50 IMPRESSION: No acute fractures or malalignment. Humerus X-Ray 11/22/21 14:50 IMPRESSION: No acute fractures or malalignment within the imaged left upper extremity. Shoulder X-Ray 11/22/21 14:50 IMPRESSION: No acute fractures or malalignment within the imaged left upper extremity. Head CT 12/22/21 16:42 IMPRESSION: No acute intracranial pathology. Hand X-Ray 12/25/21 08:38 IMPRESSION: No soft tissue foreign body seen. Brain MRI 12/25/21 09:20 IMPRESSION: No acute intracranial findings. No acute infarcts. There is mild chronic microangiopathy. No pathologic enhancement. Lumbar Puncture Fluoroscopy 12/27/21 14:00 IMPRESSION: Successful ultrasound-guided lumbar puncture performed without immediate complications. Medications Medications Current Medications Acetaminophen (Acetaminophen 325 Mg Tablet) 650 mg PO Q6H PRN PRN Reason: Headache/Pain Mild Scale (1-3) Al Hydroxide/Mg Hydroxide (Magnesium Hydrox/Alum Hydrox 30 Ml Oral.Susp) 30 ml PO Q6H PRN PRN Reason: Heartburn/Nausea Amantadine HCl (Amantadine Hcl 100 Mg Capsule) 100 mg PO BID [facility] Last Admin: 01/07/22 08:12 Dose: 100 mg Documented by: Duloxetine HCl (Duloxetine Hcl 20 Mg Capsule.) 20 mg PO DAILY [facility] Last Admin: 01/07/22 08:12 Dose: 20 mg Documented by: Enoxaparin Sodium (Enoxaparin Sodium 40 Mg/0.4 Ml Syringe) 40 mg SUBCUT 2100 [facility] Last Admin: 12/25/21 19:24 Dose: 40 mg Documented by: Ferrous Sulfate (Ferrous Sulfate 324 Mg Tablet.) 324 mg PO BEDTIME [facility] Last Admin: 01/06/22 20:33 Dose: 324 mg Documented by: Hydroxyzine HCl (Hydroxyzine Hcl 25 Mg Tablet) 25 mg PO Q6H PRN PRN Reason: Anxiety Last Admin: 12/16/21 22:28 Dose: 25 mg Documented by: Loperamide HCl (Loperamide Hcl 2 Mg Capsule) 2 mg PO Q6H PRN PRN Reason: Diarrhea Last Admin: 11/17/21 13:40 Dose: 2 mg Documented by: Magnesium Hydroxide (Milk Of Magnesia 30 Ml Oral.Susp) 30 ml PO DAILY PRN PRN Reason: Constipation Omeprazole (Omeprazole 40 Mg Capsule.) 40 mg PO DAILY@0630 [facility] Last Admin: 01/07/22 08:24 Dose: Not Given Documented by: Psyllium Hydrophilic Mucilloid (Psyllium Seed 3.4 Gm Powd.Pack) 3.4 gm PO BEDTIME [facility] Last Admin: 01/06/22 20:35 Dose: Not Given Documented by: Risperidone (Risperidone 1 Mg Tablet) 1 mg PO BID [facility] Last Admin: 01/07/22 08:12 Dose: 1 mg Documented by: Sertraline HCl (Sertraline Hcl 100 Mg Tablet) 100 mg PO BEDTIME [facility] Last Admin: 01/06/22 20:33 Dose: 100 mg Documented by: Sucralfate (Sucralfate 1 Gm Tablet) 1 gm PO TID [facility] Last Admin: 01/07/22 08:12 Dose: 1 gm Documented by: Trazodone HCl (Trazodone Hcl 50 Mg Tablet) 50 mg PO BEDTIME PRN PRN Reason: Insomnia Allergies Allergies Allergy/AdvReac Type Severity Reaction Status Date / Time No Known Allergies Allergy Unverified 11/07/21 21:23 Assessment & Plan Assessment & Plan (1) Encephalopathy chronic: Status: Acute Code(s): G93.49 - Other encephalopathy Assessment and Plan: At this time no definitive neurological diagnosis is made. His overall mental situation is not suggestive of a dementing illness. It suggested a subacute neurological, so far under diagnosed, or psychiatric illness. Multiple tests have been negative and I am waiting for further a reference labs on CSF. As initial CSF findings were negative or normal, I do not recommend any treatment, other than symptomatic psychiatric therapies. As far as further testing with functional imaging such as PET scan or SPECT scan is concerned, these type of investigations do not provide any specific diagnosis and may not lead to any meaningful conclusion. Neuro psychological evaluation can be tried when he is somewhat better and able to cooperate and sit for an interview. (2) MDD (major depressive disorder), recurrent, severe, with psychosis: Status: Acute Code(s): F33.3 - Major depressive disorder, recurrent, severe with psychotic symptoms Assessment and Plan: 01/06: No changes to team's primary treatment plan. Encouraging ECT. Also encouraging working with was his healthcare proxy and primary treatment team around treatment decisions. Plan 01/01/22: Trial of Lorazeapm Increase Risperdal to 1 mg bid Trial of Cymbalta 20 mg daily 01/02/22: Continue current plan. Tolerating changes thus far. Await guidance regarding HCP being accepted by the court. 01/03/22: Tolerating increase of Risperdal, initiation of Ativan, Cymbalta Copper level is low-will follow with albumin, zinc levels [id number] Patient seen in psychiatric follow-up. Patient is depressed come apathetic and remains illogical and appears to be somatically delusional no new results regarding CSF all medical workup has essentially been negative the patient refuses further medical workup his fears regarding dying from some GI cancer refuses ECT but does not give any input in what he would want. Healthcare proxy has been invoked and needs to be affirmed if patient continues to refuse treatment. ECT remains the most appropriate option mood appears to be psychotic depression 01/07/2022: Continue current regimen and plans. Considerations of ECT being entertained but he is having a hard time deciding I spent minutes with the patient and/or on the patient floor today, greater than?50% of which was spent counseling/coordinating care. Patient educated on: ECT Reason for contiued inpatient stay Substantial Risk for: med/psych decompensation
--- NOTE | 2022-01-07 09:19 | P.PNPSI_ITS ---
Subjective Subjective Date of Service: 01/07/22 Reason For Visit: unspecified bipolar and related d/o Subjective Notes: Conditional Voluntary Diagnostics Vital Signs (24Hr): Vital Signs - 24 hr 01/06/22 18:00 01/07/22 06:00 Temperature 97.1 F 97.4 F Pulse Rate 72 87 Respiratory Rate 16 Blood Pressure 111/68 111/67 Pulse Oximetry 98 BMI result Body Mass Index 29.1 Labs Results: 12/27/21 08:11 12/22/21 14:57 Imaging Radiology Impressions: ITS Impressions Foot X-Ray 11/08/21 17:32 IMPRESSION: Tiny Achilles heel spur. Otherwise unremarkable appearance of the left foot. Cervical Spine X-Ray 11/22/21 14:50 IMPRESSION: No fracture or malalignment. Mild degenerative changes. Forearm X-Ray 11/22/21 14:50 IMPRESSION: No acute fractures or malalignment within the imaged left upper extremity. Hip X-Ray 11/22/21 14:50 IMPRESSION: No acute fractures or malalignment. Humerus X-Ray 11/22/21 14:50 IMPRESSION: No acute fractures or malalignment within the imaged left upper extremity. Shoulder X-Ray 11/22/21 14:50 IMPRESSION: No acute fractures or malalignment within the imaged left upper extremity. Head CT 12/22/21 16:42 IMPRESSION: No acute intracranial pathology. Hand X-Ray 12/25/21 08:38 IMPRESSION: No soft tissue foreign body seen. Brain MRI 12/25/21 09:20 IMPRESSION: No acute intracranial findings. No acute infarcts. There is mild chronic microangiopathy. No pathologic enhancement. Lumbar Puncture Fluoroscopy 12/27/21 14:00 IMPRESSION: Successful ultrasound-guided lumbar puncture performed without immediate complications. Medications Medications Current Medications Acetaminophen (Acetaminophen 325 Mg Tablet) 650 mg PO Q6H PRN PRN Reason: Headache/Pain Mild Scale (1-3) Al Hydroxide/Mg Hydroxide (Magnesium Hydrox/Alum Hydrox 30 Ml Oral.Susp) 30 ml PO Q6H PRN PRN Reason: Heartburn/Nausea Amantadine HCl (Amantadine Hcl 100 Mg Capsule) 100 mg PO BID [facility] Last Admin: 01/07/22 08:12 Dose: 100 mg Documented by: Duloxetine HCl (Duloxetine Hcl 20 Mg Capsule.Dr) 20 mg PO DAILY [facility] Last Admin: 01/07/22 08:12 Dose: 20 mg Documented by: Enoxaparin Sodium (Enoxaparin Sodium 40 Mg/0.4 Ml Syringe) 40 mg SUBCUT 2100 [facility] Last Admin: 12/25/21 19:24 Dose: 40 mg Documented by: Ferrous Sulfate (Ferrous Sulfate 324 Mg Tablet.) 324 mg PO BEDTIME [facility] Last Admin: 01/06/22 20:33 Dose: 324 mg Documented by: Hydroxyzine HCl (Hydroxyzine Hcl 25 Mg Tablet) 25 mg PO Q6H PRN PRN Reason: Anxiety Last Admin: 12/16/21 22:28 Dose: 25 mg Documented by: Loperamide HCl (Loperamide Hcl 2 Mg Capsule) 2 mg PO Q6H PRN PRN Reason: Diarrhea Last Admin: 11/17/21 13:40 Dose: 2 mg Documented by: Magnesium Hydroxide (Milk Of Magnesia 30 Ml Oral.Susp) 30 ml PO DAILY PRN PRN Reason: Constipation Omeprazole (Omeprazole 40 Mg Capsule.) 40 mg PO DAILY@0630 [facility] Last Admin: 01/07/22 08:24 Dose: Not Given Documented by: Psyllium Hydrophilic Mucilloid (Psyllium Seed 3.4 Gm Powd.Pack) 3.4 gm PO BEDTIME [facility] Last Admin: 01/06/22 20:35 Dose: Not Given Documented by: Risperidone (Risperidone 1 Mg Tablet) 1 mg PO BID [facility] Last Admin: 01/07/22 08:12 Dose: 1 mg Documented by: Sertraline HCl (Sertraline Hcl 100 Mg Tablet) 100 mg PO BEDTIME [facility] Last Admin: 01/06/22 20:33 Dose: 100 mg Documented by: Sucralfate (Sucralfate 1 Gm Tablet) 1 gm PO TID [facility] Last Admin: 01/07/22 08:12 Dose: 1 gm Documented by: Trazodone HCl (Trazodone Hcl 50 Mg Tablet) 50 mg PO BEDTIME PRN PRN Reason: Insomnia Allergies Allergies Allergy/AdvReac Type Severity Reaction Status Date / Time No Known Allergies Allergy Unverified 11/07/21 21:23 Assessment & Plan Assessment & Plan (1) Encephalopathy chronic: Status: Acute Code(s): G93.49 - Other encephalopathy Assessment and Plan: At this time no definitive neurological diagnosis is made. His overall mental situation is not suggestive of a dementing illness. It suggested a subacute neurological, so far under diagnosed, or psychiatric illness. Multiple tests have been negative and I am waiting for further a reference labs on CSF. As initial CSF findings were negative or normal, I do not recommend any treatment, other than symptomatic psychiatric therapies. As far as further testing with functional imaging such as PET scan or SPECT scan is concerned, these type of investigations do not provide any specific diagnosis and may not lead to any m eaningful conclusion. Neuro psychological evaluation can be tried when he is somewhat better and able to cooperate and sit for an interview. (2) MDD (major depressive disorder), recurrent, severe, with psychosis: Status: Acute Code(s): F33.3 - Major depressive disorder, recurrent, severe with psychotic symptoms Assessment and Plan: 01/06: No changes to team's primary treatment plan. Encouraging ECT. Also encouraging working with was his healthcare proxy and primary treatment team around treatment decisions. Plan 01/01/22: Trial of Lorazeapm Increase Risperdal to 1 mg bid Trial of Cymbalta 20 mg daily 01/02/22: Continue current plan. Tolerating changes thus far. Await guidance regarding HCP being accepted by the court. 01/03/22: Tolerating increase of Risperdal, initiation of Ativan, Cymbalta Copper level is low-will follow with albumin, zinc levels [id number] Patient seen in psychiatric follow-up. Patient is depressed come apathetic and remains illogical and appears to be somatically delusional no new results regarding CSF all medical workup has essentially been negative the patient refuses further medical workup his fears regarding dying from some GI cancer refuses ECT but does not give any input in what he would want. Healthcare proxy has been invoked and needs to be affirmed if patient continues to refuse treatment. ECT remains the most appropriate option mood appears to be psychotic depression 01/07/2022: Continue current regimen and plans. Considerations of ECT being entertained but he is having a hard time deciding I spent minutes with the patient and/or on the patient floor today, greater than?50% of which was spent counseling/coordinating care.
[2022-01-07] MEDS: Sertraline HCL 100 MG TABLET PO (20:23)
[2022-01-07] MEDS: Ferrous Sulfate 324 MG TABLET.DR PO (20:23)
[2022-01-08 06:00] VITALS: BP 137/85; PULSE 72; RESP 16; TEMP 36.2; O2SAT 97
[2022-01-08] MEDS: DULoxetine HCl 20 MG CAPSULE.DR PO (08:53)
[2022-01-08] MEDS: Omeprazole 40 MG CAPSULE.DR PO (08:53)
[2022-01-08] MEDS: amantadine HCL 100 MG CAPSULE PO ×2 (08:53→20:49)
[2022-01-08] MEDS: risperiDONE 1 MG TABLET PO ×2 (08:53→20:49)
[2022-01-08] MEDS: Sucralfate 1 GM TABLET PO ×3 (08:53→20:49)
--- NOTE | 2022-01-08 14:01 | HO.PSYCHPN ---
Subjective Subjective Date of Service: 01/08/22 Reason For Visit: unspecified bipolar and related d/o Healthcare Proxy: Yes (activated) Guardianship: No Medical Problems Affecting Mental Status: No Interim History: Medical evaluation negative at this time per diagnostics. HCP signed CV on 01/04/22. Denies SI HI, discussed his disagreement with HCP activation. For ECT, activation by the court will need to take place. Probate court will work with the case and family will need to pay for representation. Pt discussed these as concerns. Discussed concern about how to talk with his children. Discussed concern about residential COVID. Message left for pt's to see if she has any questions regarding HCP activation. No changes reported by team during the weekend. No med changes made. Medication Compliance: Yes Side effects from medications: No Attending Groups: No Review of Systems Acute medical concerns: No Medical Review of Systems: unchanged Review of Systems Reports behavioral changes, Reports confusion and Reports memory loss Psychiatric: Reports abnormal sleep pattern, Reports anxiety, Reports behavioral changes, Reports confusion, Reports depression, Reports difficulty concentrating, Reports hopelessness, Reports irritability, Reports anhedonia, Reports memory loss and Reports paranoia Mental Status Exam Mental Status Exam Patient Appearance: Fatigued Patient Orientation: Person, Place, Time and Situation Level of Consciousness: Alert Patient Behavior: Guarded, Talkative, Suspicious, Anxious, Fearful, Avoidant, Fatigued and Good Eye Contact Mood Description: Depressed Affect Description: Flat Patient Cognition Impaired: No Ability to Follow Directions: Fair Speech Pattern: Perseverating, Spontaneous Speech and Soft-Spoken Memory Description: Remote Impaired Hallucinations: None Delusions: Paranoid Ideation Perceptual Disturbances: Depersonalization and Derealization Thought Process: Distracted and Rumination Thought Content: positive for [place], positive for Circumstantial, positive for Perseveration and positive for Poverty of Content Depressive Symptoms: Increased Anxiety, Diff. Making Decisions, Sleeping More Than Usual, Loss of Int. in Activity, Feelings of Worthlessness, Hopelessness, Isolating-Friends/Family, Unhappiness, Increased Fatigue, Low Self Esteem, Loss of Energy and Difficulty Concentrating Judgement: Poor Diagnostics Vital Signs (24Hr): Vital Signs - 24 hr 01/08/22 06:00 Temperature 97.2 F Pulse Rate 72 Respiratory Rate 16 Blood Pressure 137/85 Pulse Oximetry 97 BMI result Body Mass Index 29.1 Labs Results: 12/27/21 08:11 12/22/21 14:57 Labs: Laboratory Results - last 48 hr 12/27/21 13:50 CSF Lyme IgG Bands Det TNP CSF Lyme IgM Bands Det TNP Imaging Radiology Impressions: ITS Impressions Foot X-Ray 11/08/21 17:32 IMPRESSION: Tiny Achilles heel spur. Otherwise unremarkable appearance of the left foot. Cervical Spine X-Ray 11/22/21 14:50 IMPRESSION: No fracture or malalignment. Mild degenerative changes. Forearm X-Ray 11/22/21 14:50 IMPRESSION: No acute fractures or malalignment within the imaged left upper extremity. Hip X-Ray 11/22/21 14:50 IMPRESSION: No acute fractures or malalignment. Humerus X-Ray 11/22/21 14:50 IMPRESSION: No acute fractures or malalignment within the imaged left upper extremity. Shoulder X-Ray 11/22/21 14:50 IMPRESSION: No acute fractures or malalignment within the imaged left upper extremity. Head CT 12/22/21 16:42 IMPRESSION: No acute intracranial pathology. Hand X-Ray 12/25/21 08:38 IMPRESSION: No soft tissue foreign body seen. Brain MRI 12/25/21 09:20 IMPRESSION: No acute intracranial findings. No acute infarcts. There is mild chronic microangiopathy. No pathologic enhancement. Lumbar Puncture Fluoroscopy 12/27/21 14:00 IMPRESSION: Successful ultrasound-guided lumbar puncture performed without immediate complications. Medications Medications Current Medications Acetaminophen (Acetaminophen 325 Mg Tablet) 650 mg PO Q6H PRN PRN Reason: Headache/Pain Mild Scale (1-3) Al Hydroxide/Mg Hydroxide (Magnesium Hydrox/Alum Hydrox 30 Ml Oral.Susp) 30 ml PO Q6H PRN PRN Reason: Heartburn/Nausea Amantadine HCl (Amantadine Hcl 100 Mg Capsule) 100 mg PO BID [facility] Last Admin: 01/08/22 08:53 Dose: 100 mg Documented by: Duloxetine HCl (Duloxetine Hcl 20 Mg Capsule.) 20 mg PO DAILY [facility] Last Admin: 01/08/22 08:53 Dose: 20 mg Documented by: Enoxaparin Sodium (Enoxaparin Sodium 40 Mg/0.4 Ml Syringe) 40 mg SUBCUT 2100 [facility] Last Admin: 12/25/21 19:24 Dose: 40 mg Documented by: Ferrous Sulfate (Ferrous Sulfate 324 Mg Tablet.) 324 mg PO BEDTIME [facility] Last Admin: 01/07/22 20:23 Dose: 324 mg Documented by: Hydroxyzine HCl (Hydroxyzine Hcl 25 Mg Tablet) 25 mg PO Q6H PRN PRN Reason: Anxiety Last Admin: 12/16/21 22:28 Dose: 25 mg Documented by: Loperamide HCl (Loperamide Hcl 2 Mg Capsule) 2 mg PO Q6H PRN PRN Reason: Diarrhea Last Admin: 11/17/21 13:40 Dose: 2 mg Documented by: Magnesium Hydroxide (Milk Of Magnesia 30 Ml Oral.Susp) 30 ml PO DAILY PRN PRN Reason: Constipation Omeprazole (Omeprazole 40 Mg Capsule.Dr) 40 mg PO DAILY@0630 [facility] Last Admin: 01/08/22 08:53 Dose: 40 mg Documented by: Psyllium Hydrophilic Mucilloid (Psyllium Seed 3.4 Gm Powd.Pack) 3.4 gm PO BEDTIME [facility] Last Admin: 01/07/22 20:33 Dose: Not Given Documented by: Risperidone (Risperidone 1 Mg Tablet) 1 mg PO BID [facility] Last Admin: 01/08/22 08:53 Dose: 1 mg Documented by: Sertraline HCl (Sertraline Hcl 100 Mg Tablet) 100 mg PO BEDTIME [facility] Last Admin: 01/07/22 20:23 Dose: 100 mg Documented by: Sucralfate (Sucralfate 1 Gm Tablet) 1 gm PO TID [facility] Last Admin: 01/08/22 08:53 Dose: 1 gm Documented by: Trazodone HCl (Trazodone Hcl 50 Mg Tablet) 50 mg PO BEDTIME PRN PRN Reason: Insomnia Allergies Allergies Allergy/AdvReac Type Severity Reaction Status Date / Time No Known Allergies Allergy Unverified 11/07/21 21:23 Assessment & Plan Assessment & Plan (1) Encephalopathy chronic: Status: Acute Code(s): G93.49 - Other encephalopathy (2) MDD (major depressive disorder), recurrent, severe, with psychosis: Status: Acute Code(s): F33.3 - Major depressive disorder, recurrent, severe with psychotic symptoms Plan Remains depressed, anergic, unable to make a clear decision/choice. Increase Cymbalta to 40 mg daily Decrease Sertraline to 50 mg daily Continue Risperdal Work with pt, , team to move forward with plan of care I spent 25 minutes with the patient and/or on the patient floor today, greater than?50% of which was spent counseling/coordinating care. Patient educated on: diagnosis, medication risk/benefits and therapeutic strategies Informed Consent: does not understand and further education needed Reason for contiued inpatient stay Substantial Risk for: inability to function and rapid decompensation
[2022-01-08 18:00] VITALS: BP 135/89; PULSE 80; TEMP 37.1; O2SAT 98
[2022-01-08] MEDS: Sertraline HCL 50 MG TABLET PO (20:49)
[2022-01-08] MEDS: Ferrous Sulfate 324 MG TABLET.DR PO (20:49)
[2022-01-09 06:37] LABS: Zinc 64 mcg/dL (60-130)
[2022-01-09] MEDS: Omeprazole 40 MG CAPSULE.DR PO (07:41)
[2022-01-09 08:25] VITALS: BP 135/86; PULSE 77; RESP 16; TEMP 36.4; O2SAT 98
[2022-01-09] MEDS: risperiDONE 1 MG TABLET PO ×2 (08:47→19:38)
[2022-01-09] MEDS: Sucralfate 1 GM TABLET PO ×3 (08:47→19:39)
[2022-01-09] MEDS: amantadine HCL 100 MG CAPSULE PO ×2 (08:47→19:39)
[2022-01-09] MEDS: DULoxetine HCl 20 MG CAPSULE.DR 40 MG PO (08:47)
--- NOTE | 2022-01-09 14:02 | HO.PSYCHPN ---
Subjective Subjective Date of Service: 01/09/22 Reason For Visit: unspecified bipolar and related d/o Subjective Notes: Conditional Voluntary (HCP Activated 01/04/22) Healthcare Proxy: Yes (pending court affirmation for ECT) Guardianship: No Medical Problems Affecting Mental Status: Yes (perseverative around having GI cancer) Interim History: Message from pt's . She is fully supportive of pursuit of HCP affirmation by the court for ECT. She has no current questions about signing the CV on 01/04/22, wants to proceed. She reports she is covering for a colleague at their practice this week, believes the office will close on 01/11 secondary to weather and will be available by phone between patients to provide information for court paperwork until 01/11 when she expects to be more available. She is not aware of pts SSN, if he refuses to give this then she will be in contact with their financial accounting manager and call it in. Met with Gerry who is awake, alert, in bed. He presents with anergia, dysphoria, disbelief and negativity. So, when do I get electrocuted? Responded to questions pt presented-he asked to see a copy of the CV had signed and a copy of [place] [facility] [place] which were provided. He was hesitant to provide his SSN, asked several questions, and was able to provide this at the end of our meeting. He discussed his concern about having a terminal illness that is going unrecognized-his focus continues to be on GI. Discussed swallowing difficulty-offered swallow eval- Marianny did one and they did not find anything . Discussed BA Swallow-he will consider-encouraged pt to discuss this also with Dr. Inman who will see him later today to discuss ECT. Several ECT concerns- How many people when having this treatment? What kind of person will I be after the treatment? Will I need to live in a half-way like a vegetable? Are you doing this so I won't know what is happening to me? Discussed tw hx of participation in ECT. Discussed training with Dr. Rob Camarena, [facility] training and several positive outcomes seen over several years. Discussed ECT being one of the most effective treatments for depression, along with other efficacy monitors, SE profile and treatment intervals. Pt continues to feel stuck he reports. Unable to move ahead, feeling negative, immobile and ruminative. We discussed recent change to Cymbalta, Risperdal titration and tw observations that pt is more engaged-glasses on, reading through documents, participating, asking questions, less passivity than seen in the past. Paranoia still present, with pt beginning to challenge some of these beliefs in his dialogue. Medication Compliance: Yes Side effects from medications: No Attending Groups: No Review of Systems Acute medical concerns: No Swallow eval at [facility] negative per pt, so will not order another. Barium swallow he is considering. HCP is on board with this test. Medical Review of Systems: unchanged Review of Systems: Copper was low- zinc, mg , albumin wnl Review of Systems Constitutional: Reports fatigue, Reports lethargy, Reports malaise and Reports weakness Eyes: Reports no additional eye complaints Reports Normal hearing present, Reports dysphagia, Reports vertigo and Reports disequilibrium Cardiovascular: Reports no additional cardiovascular complaints Respiratory: Reports no additional respiratory complaints Gastrointestinal: Reports dysphagia Reports Normal hearing present, Reports behavioral changes, Reports vertigo, Reports memory loss, Reports disequilibrium and Reports weakness Psychiatric: Reports anxiety, Reports behavioral changes, Reports depression, Reports difficulty concentrating, Reports hopelessness, Reports irritability, Reports anhedonia, Reports memory loss, Reports paranoia and Reports suicidal ideation (denies) Endocrine: Reports fatigue Mental Status Exam Mental Status Exam Patient Appearance: Disheveled Patient Orientation: Person, Place, Time and Situation Level of Consciousness: Alert Patient Behavior: Talkative, Cooperative, Suspicious, Anxious, Fearful, Resistive to Care, Fatigued, Distractible and Good Eye Contact Mood Description: Depressed Affect Description: Flat Patient Cognition Impaired: No Ability to Follow Directions: Good Speech Pattern: Perseverating, Spontaneous Speech, Soft-Spoken, Delayed and Long Pauses Memory Description: Episodic Impaired Hallucinations: None Delusions: Paranoid Ideation Perceptual Disturbances: Depersonalization and Derealization Thought Process: Illogical, Distracted and Rumination Thought Content: positive for Perseveration, positive for Preoccupation and positive for Hypochondriasis Depressive Symptoms: Increased Anxiety, Diff. Making Decisions, Loss of Int. in Activity, Feelings of Worthlessness, Hopelessness, Isolating-Friends/Family, Unhappiness, Increased Fatigue, Low Self Esteem, Loss of Energy and Difficulty Concentrating Judgement: Poor Diagnostics Vital Signs (24Hr): Vital Signs - 24 hr 01/08/22 18:00 01/09/22 08:25 Temperature 98.8 F 97.5 F Pulse Rate 80 77 Respiratory Rate 16 Blood Pressure 135/89 135/86 Pulse Oximetry 98 98 BMI result Body Mass Index 29.1 Labs Results: 12/27/21 08:11 12/22/21 14:57 Labs: Laboratory Results - last 48 hr 01/04/22 08:12 Zinc 64 Imaging Radiology Impressions: ITS Impressions Foot X-Ray 11/08/21 17:32 IMPRESSION: Tiny Achilles heel spur. Otherwise unremarkable appearance of the left foot. Cervical Spine X-Ray 11/22/21 14:50 IMPRESSION: No fracture or malalignment. Mild degenerative changes. Forearm X-Ray 11/22/21 14:50 IMPRESSION: No acute fractures or malalignment within the imaged left upper extremity. Hip X-Ray 11/22/21 14:50 IMPRESSION: No acute fractures or malalignment. Humerus X-Ray 11/22/21 14:50 IMPRESSION: No acute fractures or malalignment within the imaged left upper extremity. Shoulder X-Ray 11/22/21 14:50 IMPRESSION: No acute fractures or malalignment within the imaged left upper extremity. Head CT 12/22/21 16:42 IMPRESSION: No acute intracranial pathology. Hand X-Ray 12/25/21 08:38 IMPRESSION: No soft tissue foreign body seen. Brain MRI 12/25/21 09:20 IMPRESSION: No acute intracranial findings. No acute infarcts. There is mild chronic microangiopathy. No pathologic enhancement. Lumbar Puncture Fluoroscopy 12/27/21 14:00 IMPRESSION: Successful ultrasound-guided lumbar puncture performed without immediate complications. Medications Medications Current Medications Acetaminophen (Acetaminophen 325 Mg Tablet) 650 mg PO Q6H PRN PRN Reason: Headache/Pain Mild Scale (1-3) Al Hydroxide/Mg Hydroxide (Magnesium Hydrox/Alum Hydrox 30 Ml Oral.Susp) 30 ml PO Q6H PRN PRN Reason: Heartburn/Nausea Amantadine HCl (Amantadine Hcl 100 Mg Capsule) 100 mg PO BID [facility] Last Admin: 01/09/22 08:47 Dose: 100 mg Documented by: Duloxetine HCl (Duloxetine Hcl 20 Mg Capsule.) 40 mg PO DAILY [facility] Last Admin: 01/09/22 08:47 Dose: 40 mg Documented by: Enoxaparin Sodium (Enoxaparin Sodium 40 Mg/0.4 Ml Syringe) 40 mg SUBCUT 2100 [facility] Last Admin: 12/25/21 19:24 Dose: 40 mg Documented by: Ferrous Sulfate (Ferrous Sulfate 324 Mg Tablet.) 324 mg PO BEDTIME [facility] Last Admin: 01/08/22 20:49 Dose: 324 mg Documented by: Hydroxyzine HCl (Hydroxyzine Hcl 25 Mg Tablet) 25 mg PO Q6H PRN PRN Reason: Anxiety Last Admin: 12/16/21 22:28 Dose: 25 mg Documented by: Loperamide HCl (Loperamide Hcl 2 Mg Capsule) 2 mg PO Q6H PRN PRN Reason: Diarrhea Last Admin: 11/17/21 13:40 Dose: 2 mg Documented by: Magnesium Hydroxide (Milk Of Magnesia 30 Ml Oral.Susp) 30 ml PO DAILY PRN PRN Reason: Constipation Omeprazole (Omeprazole 40 Mg Capsule.) 40 mg PO DAILY@0630 [facility] Last Admin: 01/09/22 07:41 Dose: 40 mg Documented by: Psyllium Hydrophilic Mucilloid (Psyllium Seed 3.4 Gm Powd.Pack) 3.4 gm PO BEDTIME [facility] Last Admin: 01/08/22 19:13 Dose: Not Given Documented by: Risperidone (Risperidone 1 Mg Tablet) 1 mg PO BID [facility] Last Admin: 01/09/22 08:47 Dose: 1 mg Documented by: Sertraline HCl (Sertraline Hcl 50 Mg Tablet) 50 mg PO BEDTIME [facility] Last Admin: 01/08/22 20:49 Dose: 50 mg Documented by: Sucralfate (Sucralfate 1 Gm Tablet) 1 gm PO TID [facility] Last Admin: 01/09/22 08:47 Dose: 1 gm Documented by: Trazodone HCl (Trazodone Hcl 50 Mg Tablet) 50 mg PO BEDTIME PRN PRN Reason: Insomnia Allergies Allergies Allergy/AdvReac Type Severity Reaction Status Date / Time No Known Allergies Allergy Unverified 11/07/21 21:23 Assessment & Plan Assessment & Plan (1) Encephalopathy chronic: Status: Acute Code(s): G93.49 - Other encephalopathy (2) MDD (major depressive disorder), recurrent, severe, with psychosis: Status: Acute Code(s): F33.3 - Major depressive disorder, recurrent, severe with psychotic symptoms Plan Remains depressed, anergic, unable to make a clear decision/choice. HCP activated, today, pt able to give SSN for court paperwork Continue Cymbalta, Risperdal, Sertraline Work with pt, , team to move forward with plan of care- prepare for ECT Pt considering barium swallow I spent 60 minutes with the patient and/or on the patient floor today, greater than?50% of which was spent counseling/coordinating care. Patient educated on: diagnosis, medication risk/benefits and therapeutic strategies Informed Consent: further education needed Reason for contiued inpatient stay Substantial Risk for: inability to function and rapid decompensation
[2022-01-09 17:25] VITALS: BP 153/92; PULSE 75; TEMP 36.7
[2022-01-09 17:26] VITALS: BP 135/73; PULSE 85; TEMP 35.8
[2022-01-09] MEDS: Sertraline HCL 50 MG TABLET PO (19:39)
[2022-01-09] MEDS: Ferrous Sulfate 324 MG TABLET.DR PO (19:41)
--- NOTE | 2022-01-09 22:42 | PM.EVENT ---
Event Note Date of Service: 01/09/22 Event Note: The patient is seen chart reviewed case discussed in treatment team and with Miranda Guzman psychiatric nurse practitioner who is been following the patient. The patient was admitted in a depressed confused state with problems processing information, catastrophic thinking hopeless helpless preoccupied with the fact that he was going to . somatically delusional insisting he has cancer or some other catastrophic illness. He is often lethargic. The patient has had difficulty taking in information making decisions and remains depressed withdrawn but with improvement in ability to track information and express himself. He remains quite withdrawn mostly bed ridden and hopeless. He has had an extensive medical workup including MRI lumbar puncture extensive labs and recent barium swallow because of complaints of dysphagia and fear that the patient had regarding esophageal cancer which is mother of at 61. Two years ago he reportedly had COVID but there is nothing definitely linking his current state to past COVID infection although certainly in the literature there are extensive psychiatric symptoms and neurological symptoms seen both during and post COVID. Current impression remains that the patient has a psychotic depression that so far has not remitted with medication treatment. We are recommending ECT and hopefully some of the patient's perceived cognitive difficulties would remit with treatment of presumed psychotic depression. The patient has a healthcare proxy which we are trying to affirm. There has been some improvement with Risperdal Cymbalta. I did discuss with the patient and also previously with his risks and benefits of electroconvulsive therapy he was given literature to review and also available to his . Total time spent 40 minutes
[2022-01-10 08:08] VITALS: BP 128/81; PULSE 100; RESP 16; TEMP 36.1; O2SAT 95
[2022-01-10] MEDS: DULoxetine HCl 20 MG CAPSULE.DR 40 MG PO (08:46)
[2022-01-10] MEDS: risperiDONE 1 MG TABLET PO ×2 (08:46→19:42)
[2022-01-10] MEDS: Omeprazole 40 MG CAPSULE.DR PO (08:46)
[2022-01-10] MEDS: Sucralfate 1 GM TABLET PO ×3 (08:46→19:42)
[2022-01-10] MEDS: amantadine HCL 100 MG CAPSULE PO ×2 (08:46→19:42)
--- NOTE | 2022-01-10 17:57 | P.PNPSI_ITS ---
Subjective Subjective Date of Service: 01/10/22 Reason For Visit: unspecified bipolar and related d/o Subjective Notes: Conditional Voluntary (HCP activation) Healthcare Proxy: Yes Guardianship: No Medical Problems Affecting Mental Status: No Interim History: Pt a bit more visable in milieu. Agreed and participated in a barium swallow this a.m. at Dr. Inman's suggestion. Results WNL. Pt provided with a copy of results. Interacting with team after the test was completed. Tolerating medi cation changes Medication Compliance: Yes Side effects from medications: No Attending Groups: No Review of Systems Acute medical concerns: No Extensive testing is negative thus far. Medical Review of Systems: unchanged Review of Systems Constitutional: Reports fatigue, Reports lethargy, Reports malaise and Reports weakness Eyes: Reports no additional eye complaints Reports Normal hearing present, Reports dysphagia, Reports vertigo and Reports disequilibrium Cardiovascular: Reports no additional cardiovascular complaints Respiratory: Reports no additional respiratory complaints Gastrointestinal: Reports dysphagia Reports Normal hearing present, Reports behavioral changes, Reports vertigo, Reports memory loss, Reports disequilibrium and Reports weakness Psychiatric: Reports anxiety, Reports behavioral changes, Reports depression, Reports difficulty concentrating, Reports hopelessness, Reports irritability, Reports anhedonia, Reports memory loss, Reports paranoia and Reports suicidal ideation (denies) Endocrine: Reports fatigue Mental Status Exam Mental Status Exam Patient Appearance: Disheveled Patient Orientation: Person, Place, Time and Situation Level of Consciousness: Alert Patient Behavior: Talkative, Cooperative, Suspicious, Anxious, Fearful, Resistive to Care, Fatigued, Distractible and Good Eye Contact Mood Description: Depressed Affect Description: Flat Patient Cognition Impaired: No Ability to Follow Directions: Good Speech Pattern: Perseverating, Spontaneous Speech, Soft-Spoken, Delayed and Long Pauses Memory Description: Episodic Impaired Hallucinations: None Delusions: Paranoid Ideation Perceptual Disturbances: Depersonalization and Derealization Thought Process: Illogical, Distracted and Rumination Thought Content: positive for Perseveration, positive for Preoccupation and positive for Hypochondriasis Depressive Symptoms: Increased Anxiety, Diff. Making Decisions, Loss of Int. in Activity, Feelings of Worthlessness, Hopelessness, Isolating-Friends/Family, Unhappiness, Increased Fatigue, Low Self Esteem, Loss of Energy and Difficulty Concentrating Judgement: Poor Diagnostics Vital Signs (24Hr): Vital Signs - 24 hr 01/10/22 08:08 Temperature 96.9 F Pulse Rate 100 Respiratory Rate 16 Blood Pressure 128/81 Pulse Oximetry 95 BMI result Body Mass Index 29.1 Labs Results: 12/27/21 08:11 12/22/21 14:57 Labs: Laboratory Results - last 48 hr 01/04/22 08:12 Zinc 64 Imaging Radiology Impressions: ITS Impressions Foot X-Ray 11/08/21 17:32 IMPRESSION: Tiny Achilles heel spur. Otherwise unremarkable appearance of the left foot. Cervical Spine X-Ray 11/22/21 14:50 IMPRESSION: No fracture or malalignment. Mild degenerative changes. Forearm X-Ray 11/22/21 14:50 IMPRESSION: No acute fractures or malalignment within the imaged left upper extremity. Hip X-Ray 11/22/21 14:50 IMPRESSION: No acute fractures or malalignment. Humerus X-Ray 11/22/21 14:50 IMPRESSION: No acute fractures or malalignment within the imaged left upper extremity. Shoulder X-Ray 11/22/21 14:50 IMPRESSION: No acute fractures or malalignment within the imaged left upper extremity. Head CT 12/22/21 16:42 IMPRESSION: No acute intracranial pathology. Hand X-Ray 12/25/21 08:38 IMPRESSION: No soft tissue foreign body seen. Brain MRI 12/25/21 09:20 IMPRESSION: No acute intracranial findings. No acute infarcts. There is mild chronic microangiopathy. No pathologic enhancement. Lumbar Puncture Fluoroscopy 12/27/21 14:00 IMPRESSION: Successful ultrasound-guided lumbar puncture performed without immediate complications. Barium Swallow X-Ray 01/10/22 08:29 IMPRESSION: Unremarkable barium swallow in upright and supine position. Occasional secondary and tertiary peristalsis seen in mid and distal esophagus with solid foot but no obstruction.. Medications Medications Current Medications Acetaminophen (Acetaminophen 325 Mg Tablet) 650 mg PO Q6H PRN PRN Reason: Headache/Pain Mild Scale (1-3) Al Hydroxide/Mg Hydroxide (Magnesium Hydrox/Alum Hydrox 30 Ml Oral.Susp) 30 ml PO Q6H PRN PRN Reason: Heartburn/Nausea Amantadine HCl (Amantadine Hcl 100 Mg Capsule) 100 mg PO BID [facility] Last Admin: 01/10/22 08:46 Dose: 100 mg Documented by: Duloxetine HCl (Duloxetine Hcl 20 Mg Capsule.Dr) 40 mg PO DAILY [facility] Last Admin: 01/10/22 08:46 Dose: 40 mg Documented by: Enoxaparin Sodium (Enoxaparin Sodium 40 Mg/0.4 Ml Syringe) 40 mg SUBCUT 2100 [facility] Last Admin: 12/25/21 19:24 Dose: 40 mg Documented by: Ferrous Sulfate (Ferrous Sulfate 324 Mg Tablet.) 324 mg PO BEDTIME [facility] Last Admin: 01/09/22 19:41 Dose: 324 mg Documented by: Hydroxyzine HCl (Hydroxyzine Hcl 25 Mg Tablet) 25 mg PO Q6H PRN PRN Reason: Anxiety Last Admin: 12/16/21 22:28 Dose: 25 mg Documented by: Loperamide HCl (Loperamide Hcl 2 Mg Capsule) 2 mg PO Q6H PRN PRN Reason: Diarrhea Last Admin: 11/17/21 13:40 Dose: 2 mg Documented by: Magnesium Hydroxide (Milk Of Magnesia 30 Ml Oral.Susp) 30 ml PO DAILY PRN PRN Reason: Constipation Omeprazole (Omeprazole 40 Mg Capsule.) 40 mg PO DAILY@0630 [facility] Last Admin: 01/10/22 08:46 Dose: 40 mg Documented by: Psyllium Hydrophilic Mucilloid (Psyllium Seed 3.4 Gm Powd.Pack) 3.4 gm PO BEDTIME [facility] Last Admin: 01/09/22 19:52 Dose: Not Given Documented by: Risperidone (Risperidone 1 Mg Tablet) 1 mg PO BID [facility] Last Admin: 01/10/22 08:46 Dose: 1 mg Documented by: Sertraline HCl (Sertraline Hcl 50 Mg Tablet) 50 mg PO BEDTIME [facility] Last Admin: 01/09/22 19:39 Dose: 50 mg Documented by: Sucralfate (Sucralfate 1 Gm Tablet) 1 gm PO TID [facility] Last Admin: 01/10/22 13:58 Dose: 1 gm Documented by: Trazodone HCl (Trazodone Hcl 50 Mg Tablet) 50 mg PO BEDTIME PRN PRN Reason: Insomnia Allergies Allergies Allergy/AdvReac Type Severity Reaction Status Date / Time No Known Allergies Allergy Unverified 11/07/21 21:23 Assessment & Plan Assessment & Plan (1) Encephalopathy chronic: Status: Acute Code(s): G93.49 - Other encephalopathy (2) MDD (major depressive disorder), recurrent, severe, with psychosis: Status: Acute Code(s): F33.3 - Major depressive disorder, recurrent, severe with psychotic symptoms Plan Remains depressed, anergic, unable to make a clear decision/choice. HCP activated, today, pt able to give SSN for court paperwork Continue Cymbalta, Risperdal, Sertraline Work with pt, , team to move forward with plan of care- prepare for ECT Pt completed barium swallow- results negative I spent minutes with the patient and/or on the patient floor today, greater than?50% of which was spent counseling/coordinating care. Patient educated on: therapeutic strategies and medical condition Informed Consent: further education needed Reason for contiued inpatient stay Substantial Risk for: inability to function and rapid decompensation
[2022-01-10 19:39] VITALS: BP 123/74; PULSE 80
[2022-01-10] MEDS: Ferrous Sulfate 324 MG TABLET.DR PO (19:42)
[2022-01-10] MEDS: Sertraline HCL 50 MG TABLET PO (19:43)
[2022-01-11 06:00] VITALS: BP 138/75; PULSE 74; RESP 16; TEMP 36.4; O2SAT 99
[2022-01-11] MEDS: Omeprazole 40 MG CAPSULE.DR PO (06:43)
[2022-01-11] MEDS: amantadine HCL 100 MG CAPSULE PO ×2 (08:11→20:08)
[2022-01-11] MEDS: DULoxetine HCl 20 MG CAPSULE.DR 40 MG PO (08:11)
[2022-01-11] MEDS: risperiDONE 1 MG TABLET PO (08:11)
[2022-01-11] MEDS: Sucralfate 1 GM TABLET PO ×3 (08:11→20:08)
[2022-01-11 18:00] VITALS: BP 146/78; PULSE 74
--- NOTE | 2022-01-11 19:26 | HO.PSYCHPN ---
Subjective Subjective Date of Service: 01/11/22 Reason For Visit: unspecified bipolar and related d/o Subjective Notes: Conditional Voluntary (HCP activation) Healthcare Proxy: Yes Guardianship: No Medical Problems Affecting Mental Status: No Interim History: Angry and accusatory in our meeting today. Challenges test results, science. ECT is not proven-there is controversy . Are you making money off of my being sick? I will never see my and children again. I am just an experiment for all of you. You are going to electrocute me Attempts to support, educate not accepted by pt. Describes no relief of receiving a negative Barium swallow report- it might be a cover up. Medication Compliance: Yes Side effects from medications: No Attending Groups: No Review of Systems Acute medical concerns: No Medical Review of Systems: unchanged Review of Systems Constitutional: Reports fatigue, Reports lethargy, Reports malaise and Reports weakness Eyes: Reports no additional eye complaints Reports Normal hearing present, Reports dysphagia, Reports vertigo and Reports disequilibrium Cardiovascular: Reports no additional cardiovascular complaints Respiratory: Reports no additional respiratory complaints Gastrointestinal: Reports dysphagia Reports Normal hearing present, Reports behavioral changes, Reports vertigo, Reports memory loss, Reports disequilibrium and Reports weakness Psychiatric: Reports anxiety, Reports behavioral changes, Reports depression, Reports difficulty concentrating, Reports hopelessness, Reports irritability, Reports anhedonia, Reports memory loss, Reports paranoia and Reports suicidal ideation (denies) Endocrine: Reports fatigue Mental Status Exam Mental Status Exam Patient Appearance: Disheveled Patient Orientation: Person, Place, Time and Situation Level of Consciousness: Alert Patient Behavior: Talkative, Cooperative, Suspicious, Anxious, Fearful, Resistive to Care, Fatigued, Distractible and Good Eye Contact Mood Description: Depressed Affect Description: Flat Patient Cognition Impaired: No Ability to Follow Directions: Good Speech Pattern: Perseverating, Spontaneous Speech, Soft-Spoken, Delayed and Long Pauses Memory Description: Episodic Impaired Hallucinations: None Delusions: Paranoid Ideation Perceptual Disturbances: Depersonalization and Derealization Thought Process: Illogical, Distracted and Rumination Thought Content: positive for Perseveration, positive for Preoccupation and positive for Hypochondriasis Depressive Symptoms: Increased Anxiety, Diff. Making Decisions, Loss of Int. in Activity, Feelings of Worthlessness, Hopelessness, Isolating-Friends/Family, Unhappiness, Increased Fatigue, Low Self Esteem, Loss of Energy and Difficulty Concentrating Judgement: Poor Diagnostics Vital Signs (24Hr): Vital Signs - 24 hr 01/10/22 19:39 01/11/22 06:00 Temperature 97.6 F Pulse Rate 80 74 Respiratory Rate 16 Blood Pressure 123/74 138/75 Pulse Oximetry 99 BMI result Body Mass Index 29.1 Labs Results: 12/27/21 08:11 12/22/21 14:57 Imaging Radiology Impressions: ITS Impressions Foot X-Ray 11/08/21 17:32 IMPRESSION: Tiny Achilles heel spur. Otherwise unremarkable appearance of the left foot. Cervical Spine X-Ray 11/22/21 14:50 IMPRESSION: No fracture or malalignment. Mild degenerative changes. Forearm X-Ray 11/22/21 14:50 IMPRESSION: No acute fractures or malalignment within the imaged left upper extremity. Hip X-Ray 11/22/21 14:50 IMPRESSION: No acute fractures or malalignment. Humerus X-Ray 11/22/21 14:50 IMPRESSION: No acute fractures or malalignment within the imaged left upper extremity. Shoulder X-Ray 11/22/21 14:50 IMPRESSION: No acute fractures or malalignment within the imaged left upper extremity. Head CT 12/22/21 16:42 IMPRESSION: No acute intracranial pathology. Hand X-Ray 12/25/21 08:38 IMPRESSION: No soft tissue foreign body seen. Brain MRI 12/25/21 09:20 IMPRESSION: No acute intracranial findings. No acute infarcts. There is mild chronic microangiopathy. No pathologic enhancement. Lumbar Puncture Fluoroscopy 12/27/21 14:00 IMPRESSION: Successful ultrasound-guided lumbar puncture performed without immediate complications. Barium Swallow X-Ray 01/10/22 08:29 IMPRESSION: Unremarkable barium swallow in upright and supine position. Occasional secondary and tertiary peristalsis seen in mid and distal esophagus with solid foot but no obstruction.. Medications Medications Current Medications Acetaminophen (Acetaminophen 325 Mg Tablet) 650 mg PO Q6H PRN PRN Reason: Headache/Pain Mild Scale (1-3) Al Hydroxide/Mg Hydroxide (Magnesium Hydrox/Alum Hydrox 30 Ml Oral.Susp) 30 ml PO Q6H PRN PRN Reason: Heartburn/Nausea Amantadine HCl (Amantadine Hcl 100 Mg Capsule) 100 mg PO BID [facility] Last Admin: 01/11/22 08:11 Dose: 100 mg Documented by: Duloxetine HCl (Duloxetine Hcl 20 Mg Capsule.Dr) 40 mg PO DAILY [facility] Last Admin: 01/11/22 08:11 Dose: 40 mg Documented by: Enoxaparin Sodium (Enoxaparin Sodium 40 Mg/0.4 Ml Syringe) 40 mg SUBCUT 2100 [facility] Last Admin: 12/25/21 19:24 Dose: 40 mg Documented by: Ferrous Sulfate (Ferrous Sulfate 324 Mg Tablet.) 324 mg PO BEDTIME [facility] Last Admin: 01/10/22 19:42 Dose: 324 mg Documented by: Hydroxyzine HCl (Hydroxyzine Hcl 25 Mg Tablet) 25 mg PO Q6H PRN PRN Reason: Anxiety Last Admin: 12/16/21 22:28 Dose: 25 mg Documented by: Loperamide HCl (Loperamide Hcl 2 Mg Capsule) 2 mg PO Q6H PRN PRN Reason: Diarrhea Last Admin: 11/17/21 13:40 Dose: 2 mg Documented by: Magnesium Hydroxide (Milk Of Magnesia 30 Ml Oral.Susp) 30 ml PO DAILY PRN PRN Reason: Constipation Omeprazole (Omeprazole 40 Mg Capsule.) 40 mg PO DAILY@0630 [facility] Last Admin: 01/11/22 06:43 Dose: 40 mg Documented by: Psyllium Hydrophilic Mucilloid (Psyllium Seed 3.4 Gm Powd.Pack) 3.4 gm PO BEDTIME [facility] Last Admin: 01/10/22 19:43 Dose: Not Given Documented by: Risperidone (Risperidone 1 Mg Tablet) 1 mg PO BID [facility] Last Admin: 01/11/22 08:11 Dose: 1 mg Documented by: Sertraline HCl (Sertraline Hcl 50 Mg Tablet) 50 mg PO BEDTIME [facility] Last Admin: 01/10/22 19:43 Dose: 50 mg Documented by: Sucralfate (Sucralfate 1 Gm Tablet) 1 gm PO TID [facility] Last Admin: 01/11/22 14:47 Dose: 1 gm Documented by: Trazodone HCl (Trazodone Hcl 50 Mg Tablet) 50 mg PO BEDTIME PRN PRN Reason: Insomnia Allergies Allergies Allergy/AdvReac Type Severity Reaction Status Date / Time No Known Allergies Allergy Unverified 11/07/21 21:23 Assessment & Plan Assessment & Plan (1) Encephalopathy chronic: Status: Acute Code(s): G93.49 - Other encephalopathy (2) MDD (major depressive disorder), recurrent, severe, with psychosis: Status: Acute Code(s): F33.3 - Major depressive disorder, recurrent, severe with psychotic symptoms Plan Remains depressed, anergic, unable to make a clear decision/choice. HCP activated, today, pt able to give SSN for court paperwork Continue Cymbalta, Risperdal, Sertraline Work with pt, , team to move forward with plan of care- prepare for ECT Pt completed barium swallow- results negative 01/11/22 Increase Risperdal to 2 mg bid I spent minutes with the patient and/or on the patient floor today, greater than?50% of which was spent counseling/coordinating care. Patient educated on: therapeutic strategies Informed Consent: does not understand Reason for contiued inpatient stay Substantial Risk for: inability to function and rapid decompensation
[2022-01-11] MEDS: risperiDONE 2 MG TABLET PO (20:08)
[2022-01-11] MEDS: Ferrous Sulfate 324 MG TABLET.DR PO (20:08)
[2022-01-11] MEDS: Sertraline HCL 50 MG TABLET PO (20:08)
[2022-01-12] MEDS: Omeprazole 40 MG CAPSULE.DR PO (06:38)
[2022-01-12] MEDS: amantadine HCL 100 MG CAPSULE PO ×2 (08:39→20:06)
[2022-01-12] MEDS: DULoxetine HCl 20 MG CAPSULE.DR 40 MG PO (08:39)
[2022-01-12] MEDS: risperiDONE 2 MG TABLET PO ×2 (08:39→20:05)
[2022-01-12] MEDS: Sucralfate 1 GM TABLET PO ×3 (08:39→20:06)
[2022-01-12 08:46] VITALS: BP 119/82; PULSE 82; TEMP 36.6; O2SAT 96
--- NOTE | 2022-01-12 11:19 | P.PNPSI_ITS ---
Subjective Subjective Date of Service: 01/12/22 Reason For Visit: unspecified bipolar and related d/o Subjective Notes: Section 7 Healthcare Proxy: Yes Interim History: pt seen extensively reviewed depression as illnbess ect pt has been withdrawn sad down blue hopeless REVIEWED WITH PATIENT PROCEDURE OF ECT SYMPTOMS OF CLINICAL DEPRESSION the patient remains isolative mostly in bed poor grooming Medication Compliance: Yes Attending Groups: No Review of Systems Acute medical concerns: No Medical Review of Systems: unchanged Mental Status Exam Mental Status Exam Patient Appearance: Disheveled Patient Orientation: Person, Place, Time and Situation Level of Consciousness: Alert Patient Behavior: Guarded, Talkative, Cooperative, Suspicious, Anxious, Fearful, Fatigued, Distractible and Good Eye Contact Mood Description: Depressed and Apprehensive Affect Description: Constricted, Flat and Apprehensive Patient Cognition Impaired: No Ability to Follow Directions: Good Speech Pattern: Perseverating, Spontaneous Speech, Soft-Spoken, Delayed and Long Pauses Memory Description: Episodic Impaired Hallucinations: None Delusions: Paranoid Ideation Perceptual Disturbances: Depersonalization and Derealization Thought Process: Illogical, Distracted and Rumination Thought Content: positive for Perseveration, positive for Preoccupation and positive for Hypochondriasis Depressive Symptoms: Increased Anxiety, Diff. Making Decisions, Loss of Int. in Activity, Feelings of Worthlessness, Hopelessness, Isolating-Friends/Family, Unhappiness, Increased Fatigue, Low Self Esteem, Loss of Energy and Difficulty Concentrating Abnormal Motor Activity Signs and Symptoms: Psychomotor Retardation Judgement: Poor Judgement and Insight: Still answers most questions I do not no remains guarded with difficulty fully articulating his concerns Diagnostics Vital Signs (24Hr): Vital Signs - 24 hr 01/12/22 18:00 01/13/22 06:30 Temperature 98.0 F 97.8 F Pulse Rate 94 82 Respiratory Rate 17 Blood Pressure 114/64 130/79 Pulse Oximetry 96 99 BMI result Body Mass Index 29.1 Labs Results: 12/27/21 08:11 12/22/21 14:57 Imaging Radiology Impressions: ITS Impressions Foot X-Ray 11/08/21 17:32 IMPRESSION: Tiny Achilles heel spur. Otherwise unremarkable appearance of the left foot. Cervical Spine X-Ray 11/22/21 14:50 IMPRESSION: No fracture or malalignment. Mild degenerative changes. Forearm X-Ray 11/22/21 14:50 IMPRESSION: No acute fractures or malalignment within the imaged left upper extremity. Hip X-Ray 11/22/21 14:50 IMPRESSION: No acute fractures or malalignment. Humerus X-Ray 11/22/21 14:50 IMPRESSION: No acute fractures or malalignment within the imaged left upper extremity. Shoulder X-Ray 11/22/21 14:50 IMPRESSION: No acute fractures or malalignment within the imaged left upper extremity. Head CT 12/22/21 16:42 IMPRESSION: No acute intracranial pathology. Hand X-Ray 12/25/21 08:38 IMPRESSION: No soft tissue foreign body seen. Brain MRI 12/25/21 09:20 IMPRESSION: No acute intracranial findings. No acute infarcts. There is mild chronic microangiopathy. No pathologic enhancement. Lumbar Puncture Fluoroscopy 12/27/21 14:00 IMPRESSION: Successful ultrasound-guided lumbar puncture performed without immediate complications. Barium Swallow X-Ray 01/10/22 08:29 IMPRESSION: Unremarkable barium swallow in upright and supine position. Occasional secondary and tertiary peristalsis seen in mid and distal esophagus with solid foot but no obstruction.. Medications Medications Current Medications Acetaminophen (Acetaminophen 325 Mg Tablet) 650 mg PO Q6H PRN PRN Reason: Headache/Pain Mild Scale (1-3) Al Hydroxide/Mg Hydroxide (Magnesium Hydrox/Alum Hydrox 30 Ml Oral.Susp) 30 ml PO Q6H PRN PRN Reason: Heartburn/Nausea Amantadine HCl (Amantadine Hcl 100 Mg Capsule) 100 mg PO BID [facility] Last Admin: 01/13/22 08:24 Dose: 100 mg Documented by: Duloxetine HCl (Duloxetine Hcl 20 Mg Capsule.) 40 mg PO DAILY [facility] Last Admin: 01/13/22 08:24 Dose: 40 mg Documented by: Enoxaparin Sodium (Enoxaparin Sodium 40 Mg/0.4 Ml Syringe) 40 mg SUBCUT 2100 [facility] Last Admin: 12/25/21 19:24 Dose: 40 mg Documented by: Ferrous Sulfate (Ferrous Sulfate 324 Mg Tablet.) 324 mg PO BEDTIME [facility] Last Admin: 01/12/22 20:06 Dose: 324 mg Documented by: Hydroxyzine HCl (Hydroxyzine Hcl 25 Mg Tablet) 25 mg PO Q6H PRN PRN Reason: Anxiety Last Admin: 12/16/21 22:28 Dose: 25 mg Documented by: Loperamide HCl (Loperamide Hcl 2 Mg Capsule) 2 mg PO Q6H PRN PRN Reason: Diarrhea Last Admin: 11/17/21 13:40 Dose: 2 mg Documented by: Magnesium Hydroxide (Milk Of Magnesia 30 Ml Oral.Susp) 30 ml PO DAILY PRN PRN Reason: Constipation Omeprazole (Omeprazole 40 Mg Capsule.Dr) 40 mg PO DAILY@0630 [facility] Last Admin: 01/13/22 06:38 Dose: 40 mg Documented by: Psyllium Hydrophilic Mucilloid (Psyllium Seed 3.4 Gm Powd.Pack) 3.4 gm PO BEDTIME [facility] Last Admin: 01/12/22 20:01 Dose: Not Given Documented by: Risperidone (Risperidone 2 Mg Tablet) 2 mg PO BID [facility] Last Admin: 01/13/22 08:24 Dose: 2 mg Documented by: Sertraline HCl (Sertraline Hcl 50 Mg Tablet) 50 mg PO BEDTIME [facility] Last Admin: 01/12/22 20:06 Dose: 50 mg Documented by: Sucralfate (Sucralfate 1 Gm Tablet) 1 gm PO TID [facility] Last Admin: 01/13/22 08:24 Dose: 1 gm Documented by: Trazodone HCl (Trazodone Hcl 50 Mg Tablet) 50 mg PO BEDTIME PRN PRN Reason: Insomnia Allergies Allergies Allergy/AdvReac Type Severity Reaction Status Date / Time No Known Allergies Allergy Unverified 11/07/21 21:23 Assessment & Plan Assessment & Plan (1) MDD (major depressive disorder), recurrent, severe, with psychosis: Status: Acute Code(s): F33.3 - Major depressive disorder, recurrent, severe with psychotic symptoms (2) Encephalopathy chronic: Status: Acute Code(s): G93.49 - Other encephalopathy Plan Remains depressed, anergic, unable to make a clear decision/choice. HCP activated, today, pt able to give SSN for court paperwork Continue Cymbalta, Risperdal, Sertraline Work with pt, , team to move forward with plan of care- prepare for ECT Pt completed barium swallow- results negative 01/11/22 Increase Risperdal to 2 mg bid 01/12/2022 Patient seen extensively reviewed diagnosis expectation for treatment with ECT risks benefits alternatives and lack of response to medication. Also reviewed patient's medical history that there is does not appear to be any other etiology to his condition. Again reviewed ECT procedure continues to have difficulty with decision making in taking information I spent __35____ minutes with the patient and/or on the patient floor today, greater than?50% of which was spent counseling/coordinating care. Patient educated on: diagnosis, medication risk/benefits, ECT and medical condition Informed Consent: does not understand Reason for contiued inpatient stay Substantial Risk for: inability to function and rapid decompensation
[2022-01-12 18:00] VITALS: BP 114/64; PULSE 94; TEMP 36.7; O2SAT 96
[2022-01-12] MEDS: Sertraline HCL 50 MG TABLET PO (20:06)
[2022-01-12] MEDS: Ferrous Sulfate 324 MG TABLET.DR PO (20:06)
[2022-01-13 06:30] VITALS: BP 130/79; PULSE 82; RESP 17; TEMP 36.6; O2SAT 99
[2022-01-13] MEDS: Omeprazole 40 MG CAPSULE.DR PO (06:38)
[2022-01-13] MEDS: DULoxetine HCl 20 MG CAPSULE.DR 40 MG PO (08:24)
[2022-01-13] MEDS: amantadine HCL 100 MG CAPSULE PO ×2 (08:24→20:42)
[2022-01-13] MEDS: Sucralfate 1 GM TABLET PO ×3 (08:24→20:42)
[2022-01-13] MEDS: risperiDONE 2 MG TABLET PO ×2 (08:24→20:42)
--- NOTE | 2022-01-13 10:40 | P.PNPSI_ITS ---
Subjective Subjective Date of Service: 01/13/22 Reason For Visit: unspecified bipolar and related d/o Subjective Notes: Conditional Voluntary Medical Problems Affecting Mental Status: No Interim History: Patient was seen and discussed in rounds today. Records were reviewed. He continues to be mostly isolative with no behavioral problems. He is still depressed and anxious but safe on the unit. ECT considerations are being pursued. No complaints or side effects. Eating and sleeping adequately. No changes were made today Medication Compliance: Yes Side effects from medications: No Review of Systems Constitutional: Reports fatigue, Reports lethargy, Reports malaise and Reports weakness Eyes: Reports no additional eye complaints Reports Normal hearing present, Reports dysphagia, Reports vertigo and Reports disequilibrium Cardiovascular: Reports no additional cardiovascular complaints Respiratory: Reports no additional respiratory complaints Gastrointestinal: Reports dysphagia Reports Normal hearing present, Reports behavioral changes, Reports vertigo, Reports memory loss, Reports disequilibrium and Reports weakness Psychiatric: Reports anxiety, Reports behavioral changes, Reports depression, Reports difficulty concentrating, Reports hopelessness, Reports irritability, Reports anhedonia, Reports memory loss, Reports paranoia and Reports suicidal ideation (denies) Endocrine: Reports fatigue Diagnostics Vital Signs (24Hr): Vital Signs - 24 hr 01/12/22 18:00 01/13/22 06:30 Temperature 98.0 F 97.8 F Pulse Rate 94 82 Respiratory Rate 17 Blood Pressure 114/64 130/79 Pulse Oximetry 96 99 BMI result Body Mass Index 29.1 Labs Results: 12/27/21 08:11 12/22/21 14:57 Imaging Radiology Impressions: ITS Impressions Foot X-Ray 11/08/21 17:32 IMPRESSION: Tiny Achilles heel spur. Otherwise unremarkable appearance of the left foot. Cervical Spine X-Ray 11/22/21 14:50 IMPRESSION: No fracture or malalignment. Mild degenerative changes. Forearm X-Ray 11/22/21 14:50 IMPRESSION: No acute fractures or malalignment within the imaged left upper extremity. Hip X-Ray 11/22/21 14:50 IMPRESSION: No acute fractures or malalignment. Humerus X-Ray 11/22/21 14:50 IMPRESSION: No acute fractures or malalignment within the imaged left upper extremity. Shoulder X-Ray 11/22/21 14:50 IMPRESSION: No acute fractures or malalignment within the imaged left upper extremity. Head CT 12/22/21 16:42 IMPRESSION: No acute intracranial pathology. Hand X-Ray 12/25/21 08:38 IMPRESSION: No soft tissue foreign body seen. Brain MRI 12/25/21 09:20 IMPRESSION: No acute intracranial findings. No acute infarcts. There is mild chronic microangiopathy. No pathologic enhancement. Lumbar Puncture Fluoroscopy 12/27/21 14:00 IMPRESSION: Successful ultrasound-guided lumbar puncture performed without immediate complications. Barium Swallow X-Ray 01/10/22 08:29 IMPRESSION: Unremarkable barium swallow in upright and supine position. Occasional secondary and tertiary peristalsis seen in mid and distal esophagus with solid foot but no obstruction.. Medications Medications Current Medications Acetaminophen (Acetaminophen 325 Mg Tablet) 650 mg PO Q6H PRN PRN Reason: Headache/Pain Mild Scale (1-3) Al Hydroxide/Mg Hydroxide (Magnesium Hydrox/Alum Hydrox 30 Ml Oral.Susp) 30 ml PO Q6H PRN PRN Reason: Heartburn/Nausea Amantadine HCl (Amantadine Hcl 100 Mg Capsule) 100 mg PO BID [facility] Last Admin: 01/13/22 08:24 Dose: 100 mg Documented by: Duloxetine HCl (Duloxetine Hcl 20 Mg Capsule.) 40 mg PO DAILY [facility] Last Admin: 01/13/22 08:24 Dose: 40 mg Documented by: Enoxaparin Sodium (Enoxaparin Sodium 40 Mg/0.4 Ml Syringe) 40 mg SUBCUT 2100 [facility] Last Admin: 12/25/21 19:24 Dose: 40 mg Documented by: Ferrous Sulfate (Ferrous Sulfate 324 Mg Tablet.) 324 mg PO BEDTIME [facility] Last Admin: 01/12/22 20:06 Dose: 324 mg Documented by: Hydroxyzine HCl (Hydroxyzine Hcl 25 Mg Tablet) 25 mg PO Q6H PRN PRN Reason: Anxiety Last Admin: 12/16/21 22:28 Dose: 25 mg Documented by: Loperamide HCl (Loperamide Hcl 2 Mg Capsule) 2 mg PO Q6H PRN PRN Reason: Diarrhea Last Admin: 11/17/21 13:40 Dose: 2 mg Documented by: Magnesium Hydroxide (Milk Of Magnesia 30 Ml Oral.Susp) 30 ml PO DAILY PRN PRN Reason: Constipation Omeprazole (Omeprazole 40 Mg Capsule.) 40 mg PO DAILY@0630 [facility] Last Admin: 01/13/22 06:38 Dose: 40 mg Documented by: Psyllium Hydrophilic Mucilloid (Psyllium Seed 3.4 Gm Powd.Pack) 3.4 gm PO BEDTIME [facility] Last Admin: 01/12/22 20:01 Dose: Not Given Documented by: Risperidone (Risperidone 2 Mg Tablet) 2 mg PO BID [facility] Last Admin: 01/13/22 08:24 Dose: 2 mg Documented by: Sertraline HCl (Sertraline Hcl 50 Mg Tablet) 50 mg PO BEDTIME [facility] Last Admin: 01/12/22 20:06 Dose: 50 mg Documented by: Sucralfate (Sucralfate 1 Gm Tablet) 1 gm PO TID [facility] Last Admin: 01/13/22 08:24 Dose: 1 gm Documented by: Trazodone HCl (Trazodone Hcl 50 Mg Tablet) 50 mg PO BEDTIME PRN PRN Reason: Insomnia Allergies Allergies Allergy/AdvReac Type Severity Reaction Status Date / Time No Known Allergies Allergy Unverified 11/07/21 21:23 Assessment & Plan Assessment & Plan (1) Encephalopathy chronic: Status: Acute Code(s): G93.49 - Other encephalopathy (2) MDD (major depressive disorder), recurrent, severe, with psychosis: Status: Acute Code(s): F33.3 - Major depressive disorder, recurrent, severe with psychotic symptoms Plan Remains depressed, anergic, unable to make a clear decision/choice. HCP activated, today, pt able to give SSN for court paperwork Continue Cymbalta, Risperdal, Sertraline Work with pt, , team to move forward with plan of care- prepare for ECT Pt completed barium swallow- results negative 01/11/22 Increase Risperdal to 2 mg bid 01/13: Continue current regimen and plans with no changes today I spent minutes with the patient and/or on the patient floor today, greater than?50% of which was spent counseling/coordinating care. Reason for contiued inpatient stay Substantial Risk for: med/psych decompensation
[2022-01-13 18:00] VITALS: BP 141/83; PULSE 69; TEMP 36.5; O2SAT 97
[2022-01-13] MEDS: Ferrous Sulfate 324 MG TABLET.DR PO (20:42)
[2022-01-13] MEDS: Sertraline HCL 50 MG TABLET PO (20:42)
[2022-01-14 06:00] VITALS: BP 136/86; PULSE 87; RESP 18; TEMP 36.6; O2SAT 97
[2022-01-14] MEDS: Omeprazole 40 MG CAPSULE.DR PO (07:06)
[2022-01-14] MEDS: Sucralfate 1 GM TABLET PO ×3 (08:59→20:51)
[2022-01-14] MEDS: amantadine HCL 100 MG CAPSULE PO ×2 (08:59→20:51)
[2022-01-14] MEDS: DULoxetine HCl 20 MG CAPSULE.DR 40 MG PO (08:59)
[2022-01-14] MEDS: risperiDONE 2 MG TABLET PO ×2 (08:59→20:51)
--- NOTE | 2022-01-14 16:06 | HO.PSYCHPN ---
Subjective Subjective Date of Service: 01/14/22 Reason For Visit: unspecified bipolar and related d/o Subjective Notes: Conditional Voluntary (HCP activation) Healthcare Proxy: Yes Guardianship: No Medical Problems Affecting Mental Status: No Interim History: Expressed anger and apathy regarding his current situation. Expressed paranoia in statements about team encouraging his admission to trap him and make me part of the system so all of you will have unlimted income . Discussed med changes and efficacy- nothing . Discussed pt attending one group per day to process feelings- no . Discussed arranging zoom time to visit with children- why, to tell them I am never coming home, that I am dying, that I will never see them again-you can do that. Discussed progress of affirmation of HCP and attempted to answer his questions and clarify concerns, reality orientation. Medication Compliance: Yes Side effects from medications: No Attending Groups: No Review of Systems Acute medical concerns: No Medical Review of Systems: unchanged Review of Systems Reports vertigo and Reports dizziness Reports behavioral changes, Reports vertigo, Reports dizziness and Reports memory loss Psychiatric: Reports anxiety, Reports behavioral changes, Reports depression, Reports difficulty concentrating, Reports hopelessness, Reports irritability, Reports anhedonia, Reports memory loss, Reports mood swings, Reports paranoia and Reports suicidal ideation (denies, but states he believes he is dying) Mental Status Exam Mental Status Exam Patient Appearance: Fatigued and Disheveled Patient Orientation: Person, Place, Time and Situation Level of Consciousness: Alert Patient Behavior: Guarded, Talkative, Suspicious and Good Eye Contact Mood Description: Suspicious, Withdrawn, Depressed and Angry Affect Description: Flat Patient Cognition Impaired: Yes Ability to Follow Directions: Good Speech Pattern: Spontaneous Speech Memory Description: Episodic Impaired Hallucinations: None Delusions: Paranoid Ideation Perceptual Disturbances: Depersonalization and Derealization Thought Process: Distracted and Rumination Thought Content: positive for Circumstantial, positive for Perseveration, positive for Thought Blocking and positive for Suicidal Ideation (denies, but believes he is dying) Depressive Symptoms: Diff. Making Decisions, Increased Irritability, Hopelessness, Isolating-Friends/Family, Unhappiness, Increased Fatigue, Low Self Esteem, Loss of Energy and Difficulty Concentrating Judgement: Poor Diagnostics Vital Signs (24Hr): Vital Signs - 24 hr 01/13/22 18:00 01/14/22 06:00 Temperature 97.7 F 97.9 F Pulse Rate 69 87 Respiratory Rate 18 Blood Pressure 141/83 H 136/86 Pulse Oximetry 97 97 BMI result Body Mass Index 29.1 Labs Results: 12/27/21 08:11 12/22/21 14:57 Imaging Radiology Impressions: ITS Impressions Foot X-Ray 11/08/21 17:32 IMPRESSION: Tiny Achilles heel spur. Otherwise unremarkable appearance of the left foot. Cervical Spine X-Ray 11/22/21 14:50 IMPRESSION: No fracture or malalignment. Mild degenerative changes. Forearm X-Ray 11/22/21 14:50 IMPRESSION: No acute fractures or malalignment within the imaged left upper extremity. Hip X-Ray 11/22/21 14:50 IMPRESSION: No acute fractures or malalignment. Humerus X-Ray 11/22/21 14:50 IMPRESSION: No acute fractures or malalignment within the imaged left upper extremity. Shoulder X-Ray 11/22/21 14:50 IMPRESSION: No acute fractures or malalignment within the imaged left upper extremity. Head CT 12/22/21 16:42 IMPRESSION: No acute intracranial pathology. Hand X-Ray 12/25/21 08:38 IMPRESSION: No soft tissue foreign body seen. Brain MRI 12/25/21 09:20 IMPRESSION: No acute intracranial findings. No acute infarcts. There is mild chronic microangiopathy. No pathologic enhancement. Lumbar Puncture Fluoroscopy 12/27/21 14:00 IMPRESSION: Successful ultrasound-guided lumbar puncture performed without immediate complications. Barium Swallow X-Ray 01/10/22 08:29 IMPRESSION: Unremarkable barium swallow in upright and supine position. Occasional secondary and tertiary peristalsis seen in mid and distal esophagus with solid foot but no obstruction.. Medications Medications Current Medications Acetaminophen (Acetaminophen 325 Mg Tablet) 650 mg PO Q6H PRN PRN Reason: Headache/Pain Mild Scale (1-3) Al Hydroxide/Mg Hydroxide (Magnesium Hydrox/Alum Hydrox 30 Ml Oral.Susp) 30 ml PO Q6H PRN PRN Reason: Heartburn/Nausea Amantadine HCl (Amantadine Hcl 100 Mg Capsule) 100 mg PO BID [facility] Last Admin: 01/14/22 08:59 Dose: 100 mg Documented by: Duloxetine HCl (Duloxetine Hcl 20 Mg Capsule.) 40 mg PO DAILY [facility] Last Admin: 01/14/22 08:59 Dose: 40 mg Documented by: Enoxaparin Sodium (Enoxaparin Sodium 40 Mg/0.4 Ml Syringe) 40 mg SUBCUT 2100 [facility] Last Admin: 12/25/21 19:24 Dose: 40 mg Documented by: Ferrous Sulfate (Ferrous Sulfate 324 Mg Tablet.) 324 mg PO BEDTIME [facility] Last Admin: 01/13/22 20:42 Dose: 324 mg Documented by: Hydroxyzine HCl (Hydroxyzine Hcl 25 Mg Tablet) 25 mg PO Q6H PRN PRN Reason: Anxiety Last Admin: 12/16/21 22:28 Dose: 25 mg Documented by: Loperamide HCl (Loperamide Hcl 2 Mg Capsule) 2 mg PO Q6H PRN PRN Reason: Diarrhea Last Admin: 11/17/21 13:40 Dose: 2 mg Documented by: Magnesium Hydroxide (Milk Of Magnesia 30 Ml Oral.Susp) 30 ml PO DAILY PRN PRN Reason: Constipation Omeprazole (Omeprazole 40 Mg Capsule.) 40 mg PO DAILY@0630 [facility] Last Admin: 01/14/22 07:06 Dose: 40 mg Documented by: Psyllium Hydrophilic Mucilloid (Psyllium Seed 3.4 Gm Powd.Pack) 3.4 gm PO BEDTIME [facility] Last Admin: 01/13/22 21:09 Dose: Not Given Documented by: Risperidone (Risperidone 2 Mg Tablet) 2 mg PO BID [facility] Last Admin: 01/14/22 08:59 Dose: 2 mg Documented by: Sertraline HCl (Sertraline Hcl 50 Mg Tablet) 50 mg PO BEDTIME [facility] Last Admin: 01/13/22 20:42 Dose: 50 mg Documented by: Sucralfate (Sucralfate 1 Gm Tablet) 1 gm PO TID [facility] Last Admin: 01/14/22 14:14 Dose: 1 gm Documented by: Trazodone HCl (Trazodone Hcl 50 Mg Tablet) 50 mg PO BEDTIME PRN PRN Reason: Insomnia Allergies Allergies Allergy/AdvReac Type Severity Reaction Status Date / Time No Known Allergies Allergy Unverified 11/07/21 21:23 Assessment & Plan Assessment & Plan (1) MDD (major depressive disorder), recurrent, severe, with psychosis: Status: Acute Code(s): F33.3 - Major depressive disorder, recurrent, severe with psychotic symptoms (2) Encephalopathy chronic: Status: Acute Code(s): G93.49 - Other encephalopathy Plan Remains depressed, anergic, unable to make a clear decision/choice. HCP activated, today, pt able to give SSN for court paperwork Continue Cymbalta, Risperdal, Sertraline Work with pt, , team to move forward with plan of care- prepare for ECT Pt completed barium swallow- results negative 01/11/22 Increase Risperdal to 2 mg bid 01/12/2022 Patient seen extensively reviewed diagnosis expectation for treatment with ECT risks benefits alternatives and lack of response to medication. Also reviewed patient's medical history that there is does not appear to be any other etiology to his condition. Again reviewed ECT procedure continues to have difficulty with decision making in taking information 01/14/22 Support, educate, prepare for HCP affirmation-ECT I spent minutes with the patient and/or on the patient floor today, greater than?50% of which was spent counseling/coordinating care. Patient educated on: medication risk/benefits and therapeutic strategies Informed Consent: does not understand Reason for contiued inpatient stay Substantial Risk for: inability to function, rapid decompensation and med/psych decompensation
[2022-01-14 20:10] VITALS: BP 94/58; PULSE 76; TEMP 36.4; O2SAT 96
[2022-01-14] MEDS: Sertraline HCL 50 MG TABLET PO (20:51)
[2022-01-14] MEDS: Ferrous Sulfate 324 MG TABLET.DR PO (20:52)
[2022-01-15 06:00] VITALS: BP 121/83; PULSE 91; RESP 18; TEMP 36.7; O2SAT 98
[2022-01-15] MEDS: Omeprazole 40 MG CAPSULE.DR PO (06:12)
[2022-01-15] MEDS: Sucralfate 1 GM TABLET PO ×3 (08:31→20:46)
[2022-01-15] MEDS: amantadine HCL 100 MG CAPSULE PO ×2 (08:31→20:46)
[2022-01-15] MEDS: DULoxetine HCl 20 MG CAPSULE.DR 40 MG PO (08:31)
[2022-01-15] MEDS: risperiDONE 2 MG TABLET PO (08:31)
[2022-01-15 19:00] VITALS: BP 119/65; PULSE 80; TEMP 37.1; O2SAT 98
[2022-01-15] MEDS: Ferrous Sulfate 324 MG TABLET.DR PO (20:46)
[2022-01-15] MEDS: Sertraline HCL 50 MG TABLET PO (20:46)
[2022-01-15] MEDS: risperiDONE 1 MG TABLET PO (20:47)
--- NOTE | 2022-01-15 22:29 | HO.PSYCHPN ---
Subjective Subjective Date of Service: 01/15/22 Reason For Visit: unspecified bipolar and related d/o Subjective Notes: Conditional Voluntary (HCP activation) Healthcare Proxy: Yes Guardianship: No Medical Problems Affecting Mental Status: No Interim History: Gerry reports no change in mood, perspective. Believes that there is a persistent medical issue, not depression that is uncovered. When asked about further evaluation and his concerns, he is non-specific, denies active symptoms. Discussed if increase in Risperdal was of use-he denies, so we will return to 1 mg bid Medication Compliance: Yes Side effects from medications: No Attending Groups: No Review of Systems Acute medical concerns: No Medical Review of Systems: unchanged Review of Systems Reports vertigo and Reports dizziness Reports behavioral changes, Reports vertigo, Reports dizziness and Reports memory loss Psychiatric: Reports anxiety, Reports behavioral changes, Reports depression, Reports difficulty concentrating, Reports hopelessness, Reports irritability, Reports anhedonia, Reports memory loss, Reports mood swings, Reports paranoia and Reports suicidal ideation (denies, but states he believes he is dying) Mental Status Exam Mental Status Exam Patient Appearance: Fatigued and Disheveled Patient Orientation: Person, Place, Time and Situation Level of Consciousness: Alert Patient Behavior: Guarded, Talkative, Suspicious and Good Eye Contact Mood Description: Suspicious, Withdrawn, Depressed and Angry Affect Description: Flat Patient Cognition Impaired: Yes Ability to Follow Directions: Good Speech Pattern: Spontaneous Speech Memory Description: Episodic Impaired Hallucinations: None Delusions: Paranoid Ideation Perceptual Disturbances: Depersonalization and Derealization Thought Process: Distracted and Rumination Thought Content: positive for Circumstantial, positive for Perseveration, positive for Thought Blocking and positive for Suicidal Ideation (denies, but believes he is dying) Depressive Symptoms: Diff. Making Decisions, Increased Irritability, Hopelessness, Isolating-Friends/Family, Unhappiness, Increased Fatigue, Low Self Esteem, Loss of Energy and Difficulty Concentrating Judgement: Poor Diagnostics Vital Signs (24Hr): Vital Signs - 24 hr 01/15/22 06:00 01/15/22 19:00 Temperature 98.1 F 98.8 F Pulse Rate 91 80 Respiratory Rate 18 Blood Pressure 121/83 119/65 Pulse Oximetry 98 98 BMI result Body Mass Index 29.1 Labs Results: 12/27/21 08:11 12/22/21 14:57 Imaging Radiology Impressions: ITS Impressions Foot X-Ray 12/23/21 17:32 IMPRESSION: Tiny Achilles heel spur. Otherwise unremarkable appearance of the left foot. Cervical Spine X-Ray 11/22/21 14:50 IMPRESSION: No fracture or malalignment. Mild degenerative changes. Forearm X-Ray 11/22/21 14:50 IMPRESSION: No acute fractures or malalignment within the imaged left upper extremity. Hip X-Ray 11/22/21 14:50 IMPRESSION: No acute fractures or malalignment. Humerus X-Ray 11/22/21 14:50 IMPRESSION: No acute fractures or malalignment within the imaged left upper extremity. Shoulder X-Ray 11/22/21 14:50 IMPRESSION: No acute fractures or malalignment within the imaged left upper extremity. Head CT 12/22/21 16:42 IMPRESSION: No acute intracranial pathology. Hand X-Ray 12/25/21 08:38 IMPRESSION: No soft tissue foreign body seen. Brain MRI 12/25/21 09:20 IMPRESSION: No acute intracranial findings. No acute infarcts. There is mild chronic microangiopathy. No pathologic enhancement. Lumbar Puncture Fluoroscopy 12/27/21 14:00 IMPRESSION: Successful ultrasound-guided lumbar puncture performed without immediate complications. Barium Swallow X-Ray 01/10/22 08:29 IMPRESSION: Unremarkable barium swallow in upright and supine position. Occasional secondary and tertiary peristalsis seen in mid and distal esophagus with solid foot but no obstruction.. Medications Medications Current Medications Acetaminophen (Acetaminophen 325 Mg Tablet) 650 mg PO Q6H PRN PRN Reason: Headache/Pain Mild Scale (1-3) Al Hydroxide/Mg Hydroxide (Magnesium Hydrox/Alum Hydrox 30 Ml Oral.Susp) 30 ml PO Q6H PRN PRN Reason: Heartburn/Nausea Amantadine HCl (Amantadine Hcl 100 Mg Capsule) 100 mg PO BID [facility] Last Admin: 01/15/22 20:46 Dose: 100 mg Documented by: Duloxetine HCl (Duloxetine Hcl 20 Mg Capsule.) 40 mg PO DAILY [facility] Last Admin: 01/15/22 08:31 Dose: 40 mg Documented by: Enoxaparin Sodium (Enoxaparin Sodium 40 Mg/0.4 Ml Syringe) 40 mg SUBCUT 2100 [facility] Last Admin: 12/25/21 19:24 Dose: 40 mg Documented by: Ferrous Sulfate (Ferrous Sulfate 324 Mg Tablet.) 324 mg PO BEDTIME [facility] Last Admin: 01/15/22 20:46 Dose: 324 mg Documented by: Hydroxyzine HCl (Hydroxyzine Hcl 25 Mg Tablet) 25 mg PO Q6H PRN PRN Reason: Anxiety Last Admin: 12/16/21 22:28 Dose: 25 mg Documented by: Loperamide HCl (Loperamide Hcl 2 Mg Capsule) 2 mg PO Q6H PRN PRN Reason: Diarrhea Last Admin: 11/17/21 13:40 Dose: 2 mg Documented by: Magnesium Hydroxide (Milk Of Magnesia 30 Ml Oral.Susp) 30 ml PO DAILY PRN PRN Reason: Constipation Omeprazole (Omeprazole 40 Mg Capsule.Dr) 40 mg PO DAILY@0630 [facility] Last Admin: 01/15/22 06:12 Dose: 40 mg Documented by: Psyllium Hydrophilic Mucilloid (Psyllium Seed 3.4 Gm Powd.Pack) 3.4 gm PO BEDTIME [facility] Last Admin: 01/15/22 19:45 Dose: Not Given Documented by: Risperidone (Risperidone 1 Mg Tablet) 1 mg PO BID [facility] Last Admin: 01/15/22 20:47 Dose: 1 mg Documented by: Sertraline HCl (Sertraline Hcl 50 Mg Tablet) 50 mg PO BEDTIME [facility] Last Admin: 01/15/22 20:46 Dose: 50 mg Documented by: Sucralfate (Sucralfate 1 Gm Tablet) 1 gm PO TID [facility] Last Admin: 01/15/22 20:46 Dose: 1 gm Documented by: Trazodone HCl (Trazodone Hcl 50 Mg Tablet) 50 mg PO BEDTIME PRN PRN Reason: Insomnia Allergies Allergies Allergy/AdvReac Type Severity Reaction Status Date / Time No Known Allergies Allergy Unverified 11/07/21 21:23 Assessment & Plan Assessment & Plan (1) MDD (major depressive disorder), recurrent, severe, with psychosis: Status: Acute Code(s): F33.3 - Major depressive disorder, recurrent, severe with psychotic symptoms (2) Encephalopathy chronic: Status: Acute Code(s): G93.49 - Other encephalopathy Plan Remains depressed, anergic, unable to make a clear decision/choice. HCP activated, today, pt able to give SSN for court paperwork Continue Cymbalta, Risperdal, Sertraline Work with pt, , team to move forward with plan of care- prepare for ECT Pt completed barium swallow- results negative 01/11/22 Increase Risperdal to 2 mg bid 01/12/2022 Patient seen extensively reviewed diagnosis expectation for treatment with ECT risks benefits alternatives and lack of response to medication. Also reviewed patient's medical history that there is does not appear to be any other etiology to his condition. Again reviewed ECT procedure continues to have difficulty with decision making in taking information 01/15/22 Decrease Risperdal to 1 mg bid Support of pt and family in HCP validation through the court so ECT Trial may begin. Pt declines ECT education opportunities at this time. I spent minutes with the patient and/or on the patient floor today, greater than?50% of which was spent counseling/coordinating care. Patient educated on: diagnosis, medication risk/benefits and therapeutic strategies Informed Consent: does not understand Reason for contiued inpatient stay Substantial Risk for: inability to function and rapid decompensation
[2022-01-16 06:00] VITALS: BP 126/82; PULSE 79; RESP 18; TEMP 36.8; O2SAT 97
[2022-01-16] MEDS: Omeprazole 40 MG CAPSULE.DR PO (06:25)
[2022-01-16] MEDS: DULoxetine HCl 20 MG CAPSULE.DR 40 MG PO (08:35)
[2022-01-16] MEDS: risperiDONE 1 MG TABLET PO ×2 (08:35→19:15)
[2022-01-16] MEDS: Sucralfate 1 GM TABLET PO ×3 (08:35→19:15)
[2022-01-16] MEDS: amantadine HCL 100 MG CAPSULE PO ×2 (08:36→19:15)
[2022-01-16 18:00] VITALS: BP 121/78; PULSE 95; RESP 16; TEMP 36.5; O2SAT 98
[2022-01-16] MEDS: Ferrous Sulfate 324 MG TABLET.DR PO (19:15)
--- NOTE | 2022-01-16 20:03 | HO.PSYCHPN ---
Subjective Subjective Date of Service: 01/16/22 Reason For Visit: unspecified bipolar and related d/o Subjective Notes: Conditional Voluntary (HCP Activation) Healthcare Proxy: Yes Guardianship: No Medical Problems Affecting Mental Status: No Interim History: Cymbalta increase to 60 mg today. Met with pt and Zander KIM. Pt expressed anger, frustration, apathy. Informed that validation of HCP had begun by the court and will take approximately ten days. Pt had few questions, no questions about medications. His questions centered around rationale for court requesting information regarding HCP alternates. Angry, sarcastic responses-reports minimal interest in discussion of plan of care, however, with long pauses, it is clearly on his mind and burdensome. He declines processing opportunities. Medication Compliance: Yes Side effects from medications: No Attending Groups: No Review of Systems Acute medical concerns: No Medical Review of Systems: unchanged Review of Systems Reports behavioral changes Psychiatric: Reports anxiety, Reports behavioral changes, Reports depression, Reports hopelessness, Reports irritability, Reports anhedonia, Reports mood swings and Reports paranoia Mental Status Exam Mental Status Exam Patient Appearance: Disheveled Patient Orientation: Person, Place, Time and Situation Level of Consciousness: Alert Patient Behavior: Guarded, Talkative, Suspicious, Anxious, Fearful, Avoidant, Fatigued, Distractible and Poor Eye Contact Mood Description: Angry Affect Description: Flat Patient Cognition Impaired: No Ability to Follow Directions: Good Speech Pattern: Spontaneous Speech Memory Description: Remote Impaired and Episodic Impaired Hallucinations: None Delusions: Paranoid Ideation Perceptual Disturbances: Depersonalization and Derealization Thought Process: Distracted and Rumination Thought Content: positive for Perseveration and positive for Slowed Thinking Depressive Symptoms: Increased Anxiety, Diff. Making Decisions, Increased Irritability, Loss of Int. in Activity, Feelings of Worthlessness, Hopelessness, Isolating-Friends/Family, Unhappiness, Increased Fatigue, Low Self Esteem, Loss of Energy and Difficulty Concentrating Judgement: Poor Diagnostics Vital Signs (24Hr): Vital Signs - 24 hr 01/16/22 06:00 Temperature 98.2 F Pulse Rate 79 Respiratory Rate 18 Blood Pressure 126/82 Pulse Oximetry 97 BMI result Body Mass Index 29.1 Labs Results: 12/27/21 08:11 12/22/21 14:57 Imaging Radiology Impressions: ITS Impressions Foot X-Ray 11/08/21 17:32 IMPRESSION: Tiny Achilles heel spur. Otherwise unremarkable appearance of the left foot. Cervical Spine X-Ray 11/22/21 14:50 IMPRESSION: No fracture or malalignment. Mild degenerative changes. Forearm X-Ray 11/22/21 14:50 IMPRESSION: No acute fractures or malalignment within the imaged left upper extremity. Hip X-Ray 11/22/21 14:50 IMPRESSION: No acute fractures or malalignment. Humerus X-Ray 11/22/21 14:50 IMPRESSION: No acute fractures or malalignment within the imaged left upper extremity. Shoulder X-Ray 11/22/21 14:50 IMPRESSION: No acute fractures or malalignment within the imaged left upper extremity. Head CT 12/22/21 16:42 IMPRESSION: No acute intracranial pathology. Hand X-Ray 12/25/21 08:38 IMPRESSION: No soft tissue foreign body seen. Brain MRI 12/25/21 09:20 IMPRESSION: No acute intracranial findings. No acute infarcts. There is mild chronic microangiopathy. No pathologic enhancement. Lumbar Puncture Fluoroscopy 12/27/21 14:00 IMPRESSION: Successful ultrasound-guided lumbar puncture performed without immediate complications. Barium Swallow X-Ray 01/10/22 08:29 IMPRESSION: Unremarkable barium swallow in upright and supine position. Occasional secondary and tertiary peristalsis seen in mid and distal esophagus with solid foot but no obstruction.. Medications Medications Current Medications Acetaminophen (Acetaminophen 325 Mg Tablet) 650 mg PO Q6H PRN PRN Reason: Headache/Pain Mild Scale (1-3) Al Hydroxide/Mg Hydroxide (Magnesium Hydrox/Alum Hydrox 30 Ml Oral.Susp) 30 ml PO Q6H PRN PRN Reason: Heartburn/Nausea Amantadine HCl (Amantadine Hcl 100 Mg Capsule) 100 mg PO BID [facility] Last Admin: 01/16/22 19:15 Dose: 100 mg Documented by: Duloxetine HCl (Duloxetine Hcl 60 Mg Capsule.) 60 mg PO DAILY [facility] Enoxaparin Sodium (Enoxaparin Sodium 40 Mg/0.4 Ml Syringe) 40 mg SUBCUT 2100 [facility] Last Admin: 12/25/21 19:24 Dose: 40 mg Documented by: Ferrous Sulfate (Ferrous Sulfate 324 Mg Tablet.) 324 mg PO BEDTIME [facility] Last Admin: 01/16/22 19:15 Dose: 324 mg Documented by: Hydroxyzine HCl (Hydroxyzine Hcl 25 Mg Tablet) 25 mg PO Q6H PRN PRN Reason: Anxiety Last Admin: 12/16/21 22:28 Dose: 25 mg Documented by: Loperamide HCl (Loperamide Hcl 2 Mg Capsule) 2 mg PO Q6H PRN PRN Reason: Diarrhea Last Admin: 11/17/21 13:40 Dose: 2 mg Documented by: Magnesium Hydroxide (Milk Of Magnesia 30 Ml Oral.Susp) 30 ml PO DAILY PRN PRN Reason: Constipation Omeprazole (Omeprazole 40 Mg Capsule.Dr) 40 mg PO DAILY@0630 [facility] Last Admin: 01/16/22 06:25 Dose: 40 mg Documented by: Psyllium Hydrophilic Mucilloid (Psyllium Seed 3.4 Gm Powd.Pack) 3.4 gm PO BEDTIME [facility] Last Admin: 01/16/22 19:17 Dose: Not Given Documented by: Risperidone (Risperidone 1 Mg Tablet) 1 mg PO BID [facility] Last Admin: 01/16/22 19:15 Dose: 1 mg Documented by: Sucralfate (Sucralfate 1 Gm Tablet) 1 gm PO TID [facility] Last Admin: 01/16/22 19:15 Dose: 1 gm Documented by: Trazodone HCl (Trazodone Hcl 50 Mg Tablet) 50 mg PO BEDTIME PRN PRN Reason: Insomnia Allergies Allergies Allergy/AdvReac Type Severity Reaction Status Date / Time No Known Allergies Allergy Unverified 11/07/21 21:23 Assessment & Plan Assessment & Plan (1) MDD (major depressive disorder), recurrent, severe, with psychosis: Status: Acute Code(s): F33.3 - Major depressive disorder, recurrent, severe with psychotic symptoms (2) Encephalopathy chronic: Status: Acute Code(s): G93.49 - Other encephalopathy Plan Remains depressed, anergic, unable to make a clear decision/choice. HCP activated, today, pt able to give SSN for court paperwork Continue Cymbalta, Risperdal, Sertraline Work with pt, , team to move forward with plan of care- prepare for ECT Pt completed barium swallow- results negative 01/11/22 Increase Risperdal to 2 mg bid 01/12/2022 Patient seen extensively reviewed diagnosis expectation for treatment with ECT risks benefits alternatives and lack of response to medication. Also reviewed patient's medical history that there is does not appear to be any other etiology to his condition. Again reviewed ECT procedure continues to have difficulty with decision making in taking information 01/14/22 Support, educate, prepare for HCP affirmation-ECT 01/16/22 Increase Cymbalta to 60 mg daily Discontinue Sertraline I spent minutes with the patient and/or on the patient floor today, greater than?50% of which was spent counseling/coordinating care. Patient educated on: diagnosis, medication risk/benefits, therapeutic strategies and medical condition Informed Consent: does not understand and further education needed Reason for contiued inpatient stay Substantial Risk for: inability to function and rapid decompensation
[2022-01-17 06:00] VITALS: BP 127/75; PULSE 82; TEMP 36.9; O2SAT 97
[2022-01-17] MEDS: Omeprazole 40 MG CAPSULE.DR PO (06:19)
[2022-01-17] MEDS: amantadine HCL 100 MG CAPSULE PO ×2 (08:27→19:33)
[2022-01-17] MEDS: DULoxetine HCl 60 MG CAPSULE.DR PO (08:28)
[2022-01-17] MEDS: risperiDONE 1 MG TABLET PO ×2 (08:28→19:33)
[2022-01-17] MEDS: Sucralfate 1 GM TABLET PO ×3 (08:28→19:33)
[2022-01-17 18:00] VITALS: BP 118/68; PULSE 85; RESP 16; TEMP 36.5; O2SAT 99
[2022-01-17] MEDS: Ferrous Sulfate 324 MG TABLET.DR PO (19:33)
--- NOTE | 2022-01-17 20:06 | P.PNPSI_ITS ---
Subjective Subjective Date of Service: 01/17/22 Reason For Visit: unspecified bipolar and related d/o Subjective Notes: Conditional Voluntary (HCP activation) Healthcare Proxy: Yes Guardianship: No Medical Problems Affecting Mental Status: No Interim History: Gerry continues to express anger over HCP activation. Discussed taking action on his anger. Plans to refuse medications. Difficulty expressing specific points of anger, however talks of feeling that something is medically wrong and we have not done a complete work up and of depression being an incorrect conclusion. HCP paperwork is filed with the court. Pt reports he has not talked with his family about this process and why should I they don't care. Reviewed potential SE of abruptly stopping medications. Medication Compliance: Yes Side effects from medications: No Attending Groups: No Review of Systems Acute medical concerns: No Medical Review of Systems: unchanged Review of Systems Reports behavioral changes Psychiatric: Reports anxiety, Reports behavioral changes, Reports depression, Reports hopelessness, Reports irritability, Reports anhedonia, Reports mood swings and Reports paranoia Mental Status Exam Mental Status Exam Patient Appearance: Disheveled Patient Orientation: Person, Place, Time and Situation Level of Consciousness: Alert Patient Behavior: Guarded, Talkative, Suspicious, Anxious, Fearful, Avoidant, Fatigued, Distractible and Poor Eye Contact Mood Description: Angry Affect Description: Flat Patient Cognition Impaired: No Ability to Follow Directions: Good Speech Pattern: Spontaneous Speech Memory Description: Remote Impaired and Episodic Impaired Hallucinations: None Delusions: Paranoid Ideation Perceptual Disturbances: Depersonalization and Derealization Thought Process: Distracted and Rumination Thought Content: positive for Perseveration and positive for Slowed Thinking Depressive Symptoms: Increased Anxiety, Diff. Making Decisions, Increased Irritability, Loss of Int. in Activity, Feelings of Worthlessness, Hopelessness, Isolating-Friends/Family, Unhappiness, Increased Fatigue, Low Self Esteem, Loss of Energy and Difficulty Concentrating Judgement: Poor Diagnostics Vital Signs (24Hr): Vital Signs - 24 hr 01/17/22 06:00 Temperature 98.4 F Pulse Rate 82 Blood Pressure 127/75 Pulse Oximetry 97 BMI result Body Mass Index 29.1 Labs Results: 12/27/21 08:11 12/22/21 14:57 Imaging Radiology Impressions: ITS Impressions Foot X-Ray 11/08/21 17:32 IMPRESSION: Tiny Achilles heel spur. Otherwise unremarkable appearance of the left foot. Cervical Spine X-Ray 11/22/21 14:50 IMPRESSION: No fracture or malalignment. Mild degenerative changes. Forearm X-Ray 11/22/21 14:50 IMPRESSION: No acute fractures or malalignment within the imaged left upper extremity. Hip X-Ray 11/22/21 14:50 IMPRESSION: No acute fractures or malalignment. Humerus X-Ray 11/22/21 14:50 IMPRESSION: No acute fractures or malalignment within the imaged left upper extremity. Shoulder X-Ray 11/22/21 14:50 IMPRESSION: No acute fractures or malalignment within the imaged left upper extremity. Head CT 12/22/21 16:42 IMPRESSION: No acute intracranial pathology. Hand X-Ray 12/25/21 08:38 IMPRESSION: No soft tissue foreign body seen. Brain MRI 12/25/21 09:20 IMPRESSION: No acute intracranial findings. No acute infarcts. There is mild chronic microangiopathy. No pathologic enhancement. Lumbar Puncture Fluoroscopy 12/27/21 14:00 IMPRESSION: Successful ultrasound-guided lumbar puncture performed without immediate complications. Barium Swallow X-Ray 01/10/22 08:29 IMPRESSION: Unremarkable barium swallow in upright and supine position. Occasional secondary and tertiary peristalsis seen in mid and distal esophagus with solid foot but no obstruction.. Medications Medications Current Medications Acetaminophen (Acetaminophen 325 Mg Tablet) 650 mg PO Q6H PRN PRN Reason: Headache/Pain Mild Scale (1-3) Al Hydroxide/Mg Hydroxide (Magnesium Hydrox/Alum Hydrox 30 Ml Oral.Susp) 30 ml PO Q6H PRN PRN Reason: Heartburn/Nausea Amantadine HCl (Amantadine Hcl 100 Mg Capsule) 100 mg PO BID [facility] Last Admin: 01/17/22 19:33 Dose: 100 mg Documented by: Duloxetine HCl (Duloxetine Hcl 60 Mg Capsule.) 60 mg PO DAILY [facility] Last Admin: 01/17/22 08:28 Dose: 60 mg Documented by: Enoxaparin Sodium (Enoxaparin Sodium 40 Mg/0.4 Ml Syringe) 40 mg SUBCUT 2100 [facility] Last Admin: 12/25/21 19:24 Dose: 40 mg Documented by: Ferrous Sulfate (Ferrous Sulfate 324 Mg Tablet.) 324 mg PO BEDTIME [facility] Last Admin: 01/17/22 19:33 Dose: 324 mg Documented by: Hydroxyzine HCl (Hydroxyzine Hcl 25 Mg Tablet) 25 mg PO Q6H PRN PRN Reason: Anxiety Last Admin: 12/16/21 22:28 Dose: 25 mg Documented by: Loperamide HCl (Loperamide Hcl 2 Mg Capsule) 2 mg PO Q6H PRN PRN Reason: Diarrhea Last Admin: 11/17/21 13:40 Dose: 2 mg Documented by: Magnesium Hydroxide (Milk Of Magnesia 30 Ml Oral.Susp) 30 ml PO DAILY PRN PRN Reason: Constipation Omeprazole (Omeprazole 40 Mg Capsule.Dr) 40 mg PO DAILY@0630 [facility] Last Admin: 01/17/22 06:19 Dose: 40 mg Documented by: Psyllium Hydrophilic Mucilloid (Psyllium Seed 3.4 Gm Powd.Pack) 3.4 gm PO BEDTIME [facility] Last Admin: 01/17/22 19:35 Dose: Not Given Documented by: Risperidone (Risperidone 1 Mg Tablet) 1 mg PO BID [facility] Last Admin: 01/17/22 19:33 Dose: 1 mg Documented by: Sucralfate (Sucralfate 1 Gm Tablet) 1 gm PO TID [facility] Last Admin: 01/17/22 19:33 Dose: 1 gm Documented by: Trazodone HCl (Trazodone Hcl 50 Mg Tablet) 50 mg PO BEDTIME PRN PRN Reason: Insomnia Allergies Allergies Allergy/AdvReac Type Severity Reaction Status Date / Time No Known Allergies Allergy Unverified 11/07/21 21:23 Assessment & Plan Assessment & Plan (1) MDD (major depressive disorder), recurrent, severe, with psychosis: Status: Acute Code(s): F33.3 - Major depressive disorder, recurrent, severe with psychotic symptoms (2) Encephalopathy chronic: Status: Acute Code(s): G93.49 - Other encephalopathy Plan Remains depressed, anergic, unable to make a clear decision/choice. HCP a ctivated, today, pt able to give SSN for court paperwork Continue Cymbalta, Risperdal, Sertraline Work with pt, , team to move forward with plan of care- prepare for ECT Pt completed barium swallow- results negative 01/11/22 Increase Risperdal to 2 mg bid 01/12/2022 Patient seen extensively reviewed diagnosis expectation for treatment with ECT risks benefits alternatives and lack of response to medication. Also reviewed patient's medical history that there is does not appear to be any other etiology to his condition. Again reviewed ECT procedure continues to have difficulty with decision making in taking information 01/14/22 Support, educate, prepare for HCP affirmation-ECT 01/16/22 Increase Cymbalta to 60 mg daily Discontinue Sertraline 01/17/22 Continue current plan. HCP validation request filed with the court today. I spent minutes with the patient and/or on the patient floor today, greater than?50% of which was spent counseling/coordinating care. Patient educated on: medication risk/benefits and therapeutic strategies Informed Consent: does not understand and further education needed Reason for contiued inpatient stay Substantial Risk for: inability to function and rapid decompensation
[2022-01-18 06:00] VITALS: BP 136/90; PULSE 76; RESP 16; TEMP 37; O2SAT 98
[2022-01-18] MEDS: Omeprazole 40 MG CAPSULE.DR PO (06:40)
[2022-01-18] MEDS: DULoxetine HCl 60 MG CAPSULE.DR PO (08:46)
[2022-01-18] MEDS: Sucralfate 1 GM TABLET PO ×3 (08:46→19:57)
[2022-01-18] MEDS: risperiDONE 1 MG TABLET PO ×2 (08:46→19:57)
[2022-01-18] MEDS: amantadine HCL 100 MG CAPSULE PO ×2 (08:46→19:57)
--- NOTE | 2022-01-18 12:36 | P.PNPSI_ITS ---
Subjective Subjective Date of Service: 01/18/22 Reason For Visit: unspecified bipolar and related d/o Subjective Notes: Conditional Voluntary (HCP activation) Healthcare Proxy: Yes Guardianship: No Medical Problems Affecting Mental Status: No Interim History: Gerry presents with dysphoria today, less anger. We again reviewed what SE to expect should he refuse meds. Discussed potential symptoms from Cymbalta withdrawal, encouraged him not to worry, but understand this was antidepressant withdrawal should he choose this path. He verbalized understanding and asks if tw wants him to continue medications. He was encouraged to continue. This afternoon, he met with his court appointed associate field service engineer as HCP validation hearing will take place on 01/25/22. He was up about, walking with the associate field service engineer and engaged in discussion. Medication Compliance: Yes Side effects from medications: No Attending Groups: No Review of Systems Acute medical concerns: No Medical Review of Systems: unchanged Review of Systems Reports behavioral changes Psychiatric: Reports anxiety, Reports behavioral changes, Reports depression, Reports hopelessness, Reports irritability, Reports anhedonia, Reports mood swin gs and Reports paranoia Mental Status Exam Mental Status Exam Patient Appearance: Disheveled Patient Orientation: Person, Place, Time and Situation Level of Consciousness: Alert Patient Behavior: Guarded, Talkative, Suspicious, Anxious, Fearful, Avoidant, Fatigued, Distractible and Poor Eye Contact Mood Description: Angry Affect Description: Flat Patient Cognition Impaired: No Ability to Follow Directions: Good Speech Pattern: Spontaneous Speech Memory Description: Remote Impaired and Episodic Impaired Hallucinations: None Delusions: Paranoid Ideation Perceptual Disturbances: Depersonalization and Derealization Thought Process: Distracted and Rumination Thought Content: positive for Perseveration and positive for Slowed Thinking Depressive Symptoms: Increased Anxiety, Diff. Making Decisions, Increased Irritability, Loss of Int. in Activity, Feelings of Worthlessness, Hopelessness, Isolating-Friends/Family, Unhappiness, Increased Fatigue, Low Self Esteem, Loss of Energy and Difficulty Concentrating Judgement: Poor Diagnostics Vital Signs (24Hr): Vital Signs - 24 hr 01/17/22 18:00 01/18/22 06:00 Temperature 97.7 F 98.6 F Pulse Rate 85 76 Respiratory Rate 16 16 Blood Pressure 118/68 136/90 H Pulse Oximetry 99 98 BMI result Body Mass Index 29.1 Labs Results: 12/27/21 08:11 12/22/21 14:57 Imaging Radiology Impressions: ITS Impressions Foot X-Ray 11/08/21 17:32 IMPRESSION: Tiny Achilles heel spur. Otherwise unremarkable appearance of the left foot. Cervical Spine X-Ray 11/22/21 14:50 IMPRESSION: No fracture or malalignment. Mild degenerative changes. Forearm X-Ray 11/22/21 14:50 IMPRESSION: No acute fractures or malalignment within the imaged left upper extremity. Hip X-Ray 11/22/21 14:50 IMPRESSION: No acute fractures or malalignment. Humerus X-Ray 11/22/21 14:50 IMPRESSION: No acute fractures or malalignment within the imaged left upper extremity. Shoulder X-Ray 11/22/21 14:50 IMPRESSION: No acute fractures or malalignment within the imaged left upper extremity. Head CT 12/22/21 16:42 IMPRESSION: No acute intracranial pathology. Hand X-Ray 12/25/21 08:38 IMPRESSION: No soft tissue foreign body seen. Brain MRI 12/25/21 09:20 IMPRESSION: No acute intracranial findings. No acute infarcts. There is mild chronic microangiopathy. No pathologic enhancement. Lumbar Puncture Fluoroscopy 12/27/21 14:00 IMPRESSION: Successful ultrasound-guided lumbar puncture performed without immediate complications. Barium Swallow X-Ray 01/10/22 08:29 IMPRESSION: Unremarkable barium swallow in upright and supine position. Occasional secondary and tertiary peristalsis seen in mid and distal esophagus with solid foot but no obstruction.. Medications Medications Current Medications Acetaminophen (Acetaminophen 325 Mg Tablet) 650 mg PO Q6H PRN PRN Reason: Headache/Pain Mild Scale (1-3) Al Hydroxide/Mg Hydroxide (Magnesium Hydrox/Alum Hydrox 30 Ml Oral.Susp) 30 ml PO Q6H PRN PRN Reason: Heartburn/Nausea Amantadine HCl (Amantadine Hcl 100 Mg Capsule) 100 mg PO BID [facility] Last Admin: 01/18/22 08:46 Dose: 100 mg Documented by: Duloxetine HCl (Duloxetine Hcl 30 Mg Capsule.) 30 mg PO DAILY [facility] Enoxaparin Sodium (Enoxaparin Sodium 40 Mg/0.4 Ml Syringe) 40 mg SUBCUT 2100 [facility] Last Admin: 12/25/21 19:24 Dose: 40 mg Documented by: Ferrous Sulfate (Ferrous Sulfate 324 Mg Tablet.) 324 mg PO BEDTIME [facility] Last Admin: 01/17/22 19:33 Dose: 324 mg Documented by: Hydroxyzine HCl (Hydroxyzine Hcl 25 Mg Tablet) 25 mg PO Q6H PRN PRN Reason: Anxiety Last Admin: 12/16/21 22:28 Dose: 25 mg Documented by: Loperamide HCl (Loperamide Hcl 2 Mg Capsule) 2 mg PO Q6H PRN PRN Reason: Diarrhea Last Admin: 11/17/21 13:40 Dose: 2 mg Documented by: Magnesium Hydroxide (Milk Of Magnesia 30 Ml Oral.Susp) 30 ml PO DAILY PRN PRN Reason: Constipation Omeprazole (Omeprazole 40 Mg Capsule.Dr) 40 mg PO DAILY@0630 [facility] Last Admin: 01/18/22 06:40 Dose: 40 mg Documented by: Psyllium Hydrophilic Mucilloid (Psyllium Seed 3.4 Gm Powd.Pack) 3.4 gm PO BEDTIME [facility] Last Admin: 01/17/22 19:35 Dose: Not Given Documented by: Risperidone (Risperidone 1 Mg Tablet) 1 mg PO BID [facility] Last Admin: 01/18/22 08:46 Dose: 1 mg Documented by: Sucralfate (Sucralfate 1 Gm Tablet) 1 gm PO TID [facility] Last Admin: 01/18/22 08:46 Dose: 1 gm Documented by: Trazodone HCl (Trazodone Hcl 50 Mg Tablet) 50 mg PO BEDTIME PRN PRN Reason: Insomnia Allergies Allergies Allergy/AdvReac Type Severity Reaction Status Date / Time No Known Allergies Allergy Unverified 11/07/21 21:23 Assessment & Plan Assessment & Plan (1) MDD (major depressive disorder), recurrent, severe, with psychosis: Status: Acute Code(s): F33.3 - Major depressive disorder, recurrent, severe with psychotic symptoms (2) Encephalopathy chronic: Status: Acute Code(s): G93.49 - Other encephalopathy Plan Remains depressed, anergic, unable to make a clear decision/choice. HCP activated, today, pt able to give SSN for court paperwork Continue Cymbalta, Risperdal, Sertraline Work with pt, , team to move forward with plan of care- prepare for ECT Pt completed barium swallow- results negative 01/11/22 Increase Risperdal to 2 mg bid 01/12/2022 Patient seen extensively reviewed diagnosis expectation for treatment with ECT risks benefits alternatives and lack of response to medication. Also reviewed patient's medical history that there is does not appear to be any other etiology to his condition. Again reviewed ECT procedure continues to have difficulty with decision making in taking information 01/14/22 Support, educate, prepare for HCP affirmation-ECT 01/16/22 Increase Cymbalta to 60 mg daily Discontinue Sertraline 01/17/22 Decrease Cymbalta to 30 mg daily-Gerry is planning on beginning to refuse meds, will taper back slowly should he choose tapering. I spent minutes with the patient and/or on the patient floor today, greater than?50% of which was spent counseling/coordinating care. Patient educated on: medication risk/benefits Informed Consent: understands and further education needed Reason for contiued inpatient stay Substantial Risk for: inability to function and rapid decompensation
[2022-01-18 19:35] VITALS: BP 102/67; PULSE 78; TEMP 36.7
[2022-01-18] MEDS: Ferrous Sulfate 324 MG TABLET.DR PO (19:58)
[2022-01-19 06:00] VITALS: BP 126/74; PULSE 80; TEMP 36.9; O2SAT 97
[2022-01-19] MEDS: Omeprazole 40 MG CAPSULE.DR PO (06:53)
[2022-01-19] MEDS: risperiDONE 1 MG TABLET PO ×2 (08:28→22:00)
[2022-01-19] MEDS: Sucralfate 1 GM TABLET PO ×3 (08:28→22:00)
[2022-01-19] MEDS: amantadine HCL 100 MG CAPSULE PO ×2 (08:28→22:00)
[2022-01-19] MEDS: DULoxetine HCl 30 MG CAPSULE.DR PO (08:28)
--- NOTE | 2022-01-19 15:37 | P.PNPSI_ITS ---
Subjective Subjective Date of Service: 01/19/22 Reason For Visit: unspecified bipolar and related d/o Interim History: Gerry was lying in bed and reports that nothing has changed and nothing will change. He was otherwise quite shutdown. Medication Compliance: Yes Side effects from medications: No Mental Status Exam Mental Status Exam Patient Appearance: Disheveled Patient Orientation: Person, Place, Time and Situation Level of Consciousness: Alert Patient Behavior: Guarded, Talkative, Suspicious, Anxious, Fearful, Avoidant, Fatigued, Distractible and Poor Eye Contact Mood Description: Angry Affect Description: Flat Patient Cognition Impaired: No Ability to Follow Directions: Good Speech Pattern: Spontaneous Speech Memory Description: Remote Impaired and Episodic Impaired Hallucinations: None Delusions: Paranoid Ideation Perceptual Disturbances: Depersonalization and Derealization Thought Process: Distracted and Rumination Thought Content: positive for Perseveration and positive for Slowed Thinking Depressive Symptoms: Increased Anxiety, Diff. Making Decisions, Increased Irritability, Loss of Int. in Activity, Feelings of Worthlessness, Hopelessness, Isolating-Friends/Family, Unhappiness, Increased Fatigue, Low Self Esteem, Loss of Energy and Difficulty Concentrating Judgement: Poor Diagnostics Vital Signs (24Hr): Vital Signs - 24 hr 01/18/22 19:35 01/19/22 06:00 Temperature 98.1 F 98.4 F Pulse Rate 78 80 Blood Pressure 102/67 126/74 Pulse Oximetry 97 BMI result Body Mass Index 29.1 Labs Results: 12/27/21 08:11 12/22/21 14:57 Imaging Radiology Impressions: ITS Impressions Foot X-Ray 11/08/21 17:32 IMPRESSION: Tiny Achilles heel spur. Otherwise unremarkable appearance of the left foot. Cervical Spine X-Ray 11/22/21 14:50 IMPRESSION: No fracture or malalignment. Mild degenerative changes. Forearm X-Ray 11/22/21 14:50 IMPRESSION: No acute fractures or malalignment within the imaged left upper extremity. Hip X-Ray 11/22/21 14:50 IMPRESSION: No acute fractures or malalignment. Humerus X-Ray 11/22/21 14:50 IMPRESSION: No acute fractures or malalignment within the imaged left upper extremity. Shoulder X-Ray 11/22/21 14:50 IMPRESSION: No acute fractures or malalignment within the imaged left upper extremity. Head CT 12/22/21 16:42 IMPRESSION: No acute intracranial pathology. Hand X-Ray 12/25/21 08:38 IMPRESSION: No soft tissue foreign body seen. Brain MRI 12/25/21 09:20 IMPRESSION: No acute intracranial findings. No acute infarcts. There is mild chronic microangiopathy. No pathologic enhancement. Lumbar Puncture Fluoroscopy 12/27/21 14:00 IMPRESSION: Successful ultrasound-guided lumbar puncture performed without immediate complications. Barium Swallow X-Ray 01/10/22 08:29 IMPRESSION: Unremarkable barium swallow in upright and supine position. Occasional secondary and tertiary peristalsis seen in mid and distal esophagus with solid foot but no obstruction.. Medications Medications Current Medications Acetaminophen (Acetaminophen 325 Mg Tablet) 650 mg PO Q6H PRN PRN Reason: Headache/Pain Mild Scale (1-3) Al Hydroxide/Mg Hydroxide (Magnesium Hydrox/Alum Hydrox 30 Ml Oral.Susp) 30 ml PO Q6H PRN PRN Reason: Heartburn/Nausea Amantadine HCl (Amantadine Hcl 100 Mg Capsule) 100 mg PO BID [facility] Last Admin: 01/19/22 08:28 Dose: 100 mg Documented by: Duloxetine HCl (Duloxetine Hcl 30 Mg Capsule.) 30 mg PO DAILY [facility] Last Admin: 01/19/22 08:28 Dose: 30 mg Documented by: Enoxaparin Sodium (Enoxaparin Sodium 40 Mg/0.4 Ml Syringe) 40 mg SUBCUT 2100 [facility] Last Admin: 12/25/21 19:24 Dose: 40 mg Documented by: Ferrous Sulfate (Ferrous Sulfate 324 Mg Tablet.) 324 mg PO BEDTIME [facility] Last Admin: 01/18/22 19:58 Dose: 324 mg Documented by: Hydroxyzine HCl (Hydroxyzine Hcl 25 Mg Tablet) 25 mg PO Q6H PRN PRN Reason: Anxiety Last Admin: 12/16/21 22:28 Dose: 25 mg Documented by: Loperamide HCl (Loperamide Hcl 2 Mg Capsule) 2 mg PO Q6H PRN PRN Reason: Diarrhea Last Admin: 11/17/21 13:40 Dose: 2 mg Documented by: Magnesium Hydroxide (Milk Of Magnesia 30 Ml Oral.Susp) 30 ml PO DAILY PRN PRN Reason: Constipation Omeprazole (Omeprazole 40 Mg Capsule.) 40 mg PO DAILY@0630 [facility] Last Admin: 01/19/22 06:53 Dose: 40 mg Documented by: Psyllium Hydrophilic Mucilloid (Psyllium Seed 3.4 Gm Powd.Pack) 3.4 gm PO BEDTIME [facility] Last Admin: 01/18/22 20:00 Dose: Not Given Documented by: Risperidone (Risperidone 1 Mg Tablet) 1 mg PO BID [facility] Last Admin: 01/19/22 08:28 Dose: 1 mg Documented by: Sucralfate (Sucralfate 1 Gm Tablet) 1 gm PO TID [facility] Last Admin: 01/19/22 14:17 Dose: 1 gm Documented by: Trazodone HCl (Trazodone Hcl 50 Mg Tablet) 50 mg PO BEDTIME PRN PRN Reason: Insomnia Allergies Allergies Allergy/AdvReac Type Severity Reaction Status Date / Time No Known Allergies Allergy Unverified 11/07/21 21:23 Assessment & Plan Assessment & Plan (1) MDD (major depressive disorder), recurrent, severe, with psychosis: Status: Acute Code(s): F33.3 - Major depressive disorder, recurrent, severe with psychotic symptoms (2) Encephalopathy chronic: Status: Acute Code(s): G93.49 - Other encephalopathy Plan Remains depressed, anergic, unable to make a clear decision/choice. HCP activated, today, pt able to give SSN for court paperwork Continue Cymbalta, Risperdal, Sertraline Work with pt, , team to move forward with plan of care- prepare for ECT Pt completed barium swallow- results negative 01/11/22 Increase Risperdal to 2 mg bid 01/12/2022 Patient seen extensively reviewed diagnosis expectation for treatment with ECT risks benefits alternatives and lack of response to medication. Also reviewed patient's medical history that there is does not appear to be any other etiology to his condition. Again reviewed ECT procedure continues to have difficulty with decision making in taking information 01/14/22 Support, educate, prepare for HCP affirmation-ECT 01/16/22 Increase Cymbalta to 60 mg daily Discontinue Sertraline 01/17/22 Decrease Cymbalta to 30 mg daily-Gerry is planning on beginning to refuse meds, will taper back slowly should he choose tapering. 01/19/22: no change to the above I spent minutes with the patient and/or on the patient floor today, greater than?50% of which was spent counseling/coordinating care. Patient educated on: diagnosis and medication risk/benefits Informed Consent: further education needed Reason for contiued inpatient stay Substantial Risk for: rapid decompensation
[2022-01-19 17:20] VITALS: BP 134/84; PULSE 64; TEMP 37.1
[2022-01-19] MEDS: Ferrous Sulfate 324 MG TABLET.DR PO (22:00)
[2022-01-20 06:00] VITALS: BP 125/82; PULSE 97; TEMP 36.2; O2SAT 98
[2022-01-20] MEDS: Omeprazole 40 MG CAPSULE.DR PO (06:26)
[2022-01-20] MEDS: DULoxetine HCl 30 MG CAPSULE.DR PO (08:41)
[2022-01-20] MEDS: risperiDONE 1 MG TABLET PO ×2 (08:41→21:11)
[2022-01-20] MEDS: Sucralfate 1 GM TABLET PO ×3 (08:41→21:10)
[2022-01-20] MEDS: amantadine HCL 100 MG CAPSULE PO ×2 (08:41→21:10)
--- NOTE | 2022-01-20 12:07 | HO.PSYCHPN ---
Subjective Subjective Date of Service: 01/20/22 Reason For Visit: unspecified bipolar and related d/o Interim History: Gerry remains negative, hopeless and dismissive. He continues to think that ECT will not be helpful for him. He is in behavioral control Medication Compliance: Yes Side effects from medications: No Review of Systems Acute medical concerns: No Mental Status Exam Mental Status Exam Patient Appearance: Disheveled Patient Orientation: Person, Place, Time and Situation Level of Consciousness: Alert Patient Behavior: Guarded, Talkative, Suspicious, Anxious, Fearful, Avoidant, Fatigued, Distractible and Poor Eye Contact Mood Description: Angry Affect Description: Flat Patient Cognition Impaired: No Ability to Follow Directions: Good Speech Pattern: Spontaneous Speech Memory Description: Remote Impaired and Episodic Impaired Hallucinations: None Delusions: Paranoid Ideation Perceptual Disturbances: Depersonalization and Derealization Thought Process: Distracted and Rumination Thought Content: positive for Perseveration and positive for Slowed Thinking Depressive Symptoms: Increased Anxiety, Diff. Making Decisions, Increased Irritability, Loss of Int. in Activity, Feelings of Worthlessness, Hopelessness, Isolating-Friends/Family, Unhappiness, Increased Fatigue, Low Self Esteem, Loss of Energy and Difficulty Concentrating Judgement: Poor Diagnostics Vital Signs (24Hr): Vital Signs - 24 hr 01/19/22 17:20 01/20/22 06:00 Temperature 98.8 F 97.1 F Pulse Rate 64 97 Blood Pressure 134/84 125/82 Pulse Oximetry 98 BMI result Body Mass Index 29.1 Labs Results: 12/27/21 08:11 12/22/21 14:57 Imaging Radiology Impressions: ITS Impressions Foot X-Ray 11/08/21 17:32 IMPRESSION: Tiny Achilles heel spur. Otherwise unremarkable appearance of the left foot. Cervical Spine X-Ray 11/22/21 14:50 IMPRESSION: No fracture or malalignment. Mild degenerative changes. Forearm X-Ray 11/22/21 14:50 IMPRESSION: No acute fractures or malalignment within the imaged left upper extremity. Hip X-Ray 11/22/21 14:50 IMPRESSION: No acute fractures or malalignment. Humerus X-Ray 11/22/21 14:50 IMPRESSION: No acute fractures or malalignment within the imaged left upper extremity. Shoulder X-Ray 11/22/21 14:50 IMPRESSION: No acute fractures or malalignment within the imaged left upper extremity. Head CT 12/22/21 16:42 IMPRESSION: No acute intracranial pathology. Hand X-Ray 12/25/21 08:38 IMPRESSION: No soft tissue foreign body seen. Brain MRI 12/25/21 09:20 IMPRESSION: No acute intracranial findings. No acute infarcts. There is mild chronic microangiopathy. No pathologic enhancement. Lumbar Puncture Fluoroscopy 12/27/21 14:00 IMPRESSION: Successful ultrasound-guided lumbar puncture performed without immediate complications. Barium Swallow X-Ray 01/10/22 08:29 IMPRESSION: Unremarkable barium swallow in upright and supine position. Occasional secondary and tertiary peristalsis seen in mid and distal esophagus with solid foot but no obstruction.. Medications Medications Current Medications Acetaminophen (Acetaminophen 325 Mg Tablet) 650 mg PO Q6H PRN PRN Reason: Headache/Pain Mild Scale (1-3) Al Hydroxide/Mg Hydroxide (Magnesium Hydrox/Alum Hydrox 30 Ml Oral.Susp) 30 ml PO Q6H PRN PRN Reason: Heartburn/Nausea Amantadine HCl (Amantadine Hcl 100 Mg Capsule) 100 mg PO BID [facility] Last Admin: 01/20/22 08:41 Dose: 100 mg Documented by: Duloxetine HCl (Duloxetine Hcl 30 Mg Capsule.) 30 mg PO DAILY [facility] Last Admin: 01/20/22 08:41 Dose: 30 mg Documented by: Enoxaparin Sodium (Enoxaparin Sodium 40 Mg/0.4 Ml Syringe) 40 mg SUBCUT 2100 [facility] Last Admin: 12/25/21 19:24 Dose: 40 mg Documented by: Ferrous Sulfate (Ferrous Sulfate 324 Mg Tablet.) 324 mg PO BEDTIME [facility] Last Admin: 01/19/22 22:00 Dose: 324 mg Documented by: Hydroxyzine HCl (Hydroxyzine Hcl 25 Mg Tablet) 25 mg PO Q6H PRN PRN Reason: Anxiety Last Admin: 12/16/21 22:28 Dose: 25 mg Documented by: Loperamide HCl (Loperamide Hcl 2 Mg Capsule) 2 mg PO Q6H PRN PRN Reason: Diarrhea Last Admin: 11/17/21 13:40 Dose: 2 mg Documented by: Magnesium Hydroxide (Milk Of Magnesia 30 Ml Oral.Susp) 30 ml PO DAILY PRN PRN Reason: Constipation Omeprazole (Omeprazole 40 Mg Capsule.) 40 mg PO DAILY@0630 [facility] Last Admin: 01/20/22 06:26 Dose: 40 mg Documented by: Psyllium Hydrophilic Mucilloid (Psyllium Seed 3.4 Gm Powd.Pack) 3.4 gm PO BEDTIME [facility] Last Admin: 01/19/22 22:03 Dose: Not Given Documented by: Risperidone (Risperidone 1 Mg Tablet) 1 mg PO BID [facility] Last Admin: 01/20/22 08:41 Dose: 1 mg Documented by: Sucralfate (Sucralfate 1 Gm Tablet) 1 gm PO TID [facility] Last Admin: 01/20/22 08:41 Dose: 1 gm Documented by: Trazodone HCl (Trazodone Hcl 50 Mg Tablet) 50 mg PO BEDTIME PRN PRN Reason: Insomnia Allergies Allergies Allergy/AdvReac Type Severity Reaction Status Date / Time No Known Allergies Allergy Unverified 11/07/21 21:23 Assessment & Plan Assessment & Plan (1) MDD (major depressive disorder), recurrent, severe, with psychosis: Status: Acute Code(s): F33.3 - Major depressive disorder, recurrent, severe with psychotic symptoms (2) Encephalopathy chronic: Status: Acute Code(s): G93.49 - Other encephalopathy Plan Remains depressed, anergic, unable to make a clear decision/choice. HCP activated, today, pt able to give SSN for court paperwork Continue Cymbalta, Risperdal, Sertraline Work with pt, , team to move forward with plan of care- prepare for ECT Pt completed barium swallow- results negative 01/11/22 Increase Risperdal to 2 mg bid 01/12/2022 Patient seen extensively reviewed diagnosis expectation for treatment with ECT risks benefits alternatives and lack of response to medication. Also reviewed patient's medical history that there is does not appear to be any other etiology to his condition. Again reviewed ECT procedure continues to have difficulty with decision making in taking information 01/14/22 Support, educate, prepare for HCP affirmation-ECT 01/16/22 Increase Cymbalta to 60 mg daily Discontinue Sertraline 01/17/22 Decrease Cymbalta to 30 mg daily-Gerry is planning on beginning to refuse meds, will taper back slowly should he choose tapering. 01/19/22: no change to the above 01/20/22: no change I spent minutes with the patient and/or on the patient floor today, greater than?50% of which was spent counseling/coordinating care. Patient educated on: diagnosis and medication risk/benefits Informed Consent: further education needed Reason for contiued inpatient stay Substantial Risk for: rapid decompensation
[2022-01-20 16:15] VITALS: BP 129/84; PULSE 71; TEMP 36.8
[2022-01-20] MEDS: Ferrous Sulfate 324 MG TABLET.DR PO (21:10)
[2022-01-21 06:00] VITALS: BP 124/74; PULSE 83; RESP 18; TEMP 36.7; O2SAT 97
[2022-01-21] MEDS: Omeprazole 40 MG CAPSULE.DR PO (06:04)
[2022-01-21] MEDS: amantadine HCL 100 MG CAPSULE PO ×2 (08:17→20:45)
[2022-01-21] MEDS: risperiDONE 1 MG TABLET PO ×2 (08:17→20:45)
[2022-01-21] MEDS: DULoxetine HCl 30 MG CAPSULE.DR PO (08:17)
[2022-01-21] MEDS: Sucralfate 1 GM TABLET PO ×3 (08:17→20:45)
--- NOTE | 2022-01-21 17:13 | P.PNPSI_ITS ---
Subjective Subjective Date of Service: 01/21/22 Reason For Visit: unspecified bipolar and related d/o Subjective Notes: Conditional Voluntary (HCP activation) Healthcare Proxy: Yes Guardianship: No Medical Problems Affecting Mental Status: No Interim History: Anergic, anhedonic. Today, asks if he will need to attend court and testify in his HCP affirmation hearing. Tw checked with team who clarified with our attorneys and proposal writer returned their feedback to pt that they believe he will not need to attend court and testify. Pt became angry when this answer was presented stating, all of you know nothing, my associate attorney told me I would need to go to court. Medicine review with pt who reports he will begin to refuse medications due to disagreement with plan of care. Reviewed potential SE to assist pt in focus of potential symptoms as SE vs medical complication. He verbalized understanding. As of this time, he has not refused medication. Medication Compliance: Intermittent (Pt reports he will refuse medications) Side effects from medications: No Attending Groups: No Review of Systems Acute medical concerns: No Medical Review of Systems: unchanged Review of Systems Reports behavioral changes Psychiatric: Reports anxiety, Reports behavioral changes, Reports depression, Reports difficulty concentrating, Reports hopelessness, Reports irritability, Reports anhedonia, Reports paranoia and Reports suicidal ideation (denies) Mental Status Exam Mental Status Exam Patient Appearance: Fatigued, Disheveled and Unkempt Patient Orientation: Person, Place, Time and Situation Level of Consciousness: Alert Patient Behavior: Talkative, Suspicious and Good Eye Contact Mood Description: Depressed and Angry Affect Description: Flat Patient Cognition Impaired: No Ability to Follow Directions: Good Speech Pattern: Spontaneous Speech Memory Description: Episodic Impaired Hallucinations: None Delusions: Paranoid Ideation Perceptual Disturbances: Depersonalization and Derealization Thought Process: Rumination Thought Content: positive for Perseveration Depressive Symptoms: Increased Anxiety and Increased Irritability Judgement: Fair Diagnostics Vital Signs (24Hr): Vital Signs - 24 hr 01/21/22 06:00 Temperature 98.1 F Pulse Rate 83 Respiratory Rate 18 Blood Pressure 124/74 Pulse Oximetry 97 BMI result Body Mass Index 29.1 Labs Results: 12/27/21 08:11 12/22/21 14:57 Imaging Radiology Impressions: ITS Impressions Foot X-Ray 11/08/21 17:32 IMPRESSION: Tiny Achilles heel spur. Otherwise unremarkable appearance of the left foot. Cervical Spine X-Ray 11/22/21 14:50 IMPRESSION: No fracture or malalignment. Mild degenerative changes. Forearm X-Ray 11/22/21 14:50 IMPRESSION: No acute fractures or malalignment within the imaged left upper extremity. Hip X-Ray 11/22/21 14:50 IMPRESSION: No acute fractures or malalignment. Humerus X-Ray 11/22/21 14:50 IMPRESSION: No acute fractures or malalignment within the imaged left upper extremity. Shoulder X-Ray 11/22/21 14:50 IMPRESSION: No acute fractures or malalignment within the imaged left upper extremity. Head CT 12/22/21 16:42 IMPRESSION: No acute intracranial pathology. Hand X-Ray 12/25/21 08:38 IMPRESSION: No soft tissue foreign body seen. Brain MRI 12/25/21 09:20 IMPRESSION: No acute intracranial findings. No acute infarcts. There is mild chronic microangiopathy. No pathologic enhancement. Lumbar Puncture Fluoroscopy 12/27/21 14:00 IMPRESSION: Successful ultrasound-guided lumbar puncture performed without immediate complications. Barium Swallow X-Ray 01/10/22 08:29 IMPRESSION: Unremarkable barium swallow in upright and supine position. Occasional secondary and tertiary peristalsis seen in mid and distal esophagus with solid foot but no obstruction.. Medications Medications Current Medications Acetaminophen (Acetaminophen 325 Mg Tablet) 650 mg PO Q6H PRN PRN Reason: Headache/Pain Mild Scale (1-3) Al Hydroxide/Mg Hydroxide (Magnesium Hydrox/Alum Hydrox 30 Ml Oral.Susp) 30 ml PO Q6H PRN PRN Reason: Heartburn/Nausea Amantadine HCl (Amantadine Hcl 100 Mg Capsule) 100 mg PO BID [facility] Last Admin: 01/21/22 08:17 Dose: 100 mg Documented by: Duloxetine HCl (Duloxetine Hcl 30 Mg Capsule.) 30 mg PO DAILY [facility] Last Admin: 01/21/22 08:17 Dose: 30 mg Documented by: Enoxaparin Sodium (Enoxaparin Sodium 40 Mg/0.4 Ml Syringe) 40 mg SUBCUT 2100 [facility] Last Admin: 12/25/21 19:24 Dose: 40 mg Documented by: Ferrous Sulfate (Ferrous Sulfate 324 Mg Tablet.) 324 mg PO BEDTIME [facility] Last Admin: 01/20/22 21:10 Dose: 324 mg Documented by: Hydroxyzine HCl (Hydroxyzine Hcl 25 Mg Tablet) 25 mg PO Q6H PRN PRN Reason: Anxiety Last Admin: 12/16/21 22:28 Dose: 25 mg Documented by: Loperamide HCl (Loperamide Hcl 2 Mg Capsule) 2 mg PO Q6H PRN PRN Reason: Diarrhea Last Admin: 11/17/21 13:40 Dose: 2 mg Documented by: Magnesium Hydroxide (Milk Of Magnesia 30 Ml Oral.Susp) 30 ml PO DAILY PRN PRN Reason: Constipation Omeprazole (Omeprazole 40 Mg Capsule.Dr) 40 mg PO DAILY@0630 [facility] Last Admin: 01/21/22 06:04 Dose: 40 mg Documented by: Psyllium Hydrophilic Mucilloid (Psyllium Seed 3.4 Gm Powd.Pack) 3.4 gm PO BEDTIME [facility] Last Admin: 01/21/22 08:19 Dose: Not Given Documented by: Risperidone (Risperidone 1 Mg Tablet) 1 mg PO BID [facility] Last Admin: 01/21/22 08:17 Dose: 1 mg Documented by: Sucralfate (Sucralfate 1 Gm Tablet) 1 gm PO TID [facility] Last Admin: 01/21/22 14:32 Dose: 1 gm Documented by: Trazodone HCl (Trazodone Hcl 50 Mg Tablet) 50 mg PO BEDTIME PRN PRN Reason: Insomnia Allergies Allergies Allergy/AdvReac Type Severity Reaction Status Date / Time No Known Allergies Allergy Unverified 11/07/21 21:23 Assessment & Plan Assessment & Plan (1) MDD (major depressive disorder), recurrent, severe, with psychosis: Status: Acute Code(s): F33.3 - Major depressive disorder, recurrent, severe with psychotic symptoms (2) Encephalopathy chronic: Status: Acute Code(s): G93.49 - Other encephalopathy Plan Remains depressed, anergic, unable to make a clear decision/choice. HCP activated, today, pt able to give SSN for court paperwork Continue Cymbalta, Risperdal, Sertraline Work with pt, , team to move forward with plan of care- prepare for ECT Pt completed barium swallow- results negative 01/11/22 Increase Risperdal to 2 mg bid 01/12/2022 Patient seen extensively reviewed diagnosis expectation for treatment with ECT risks benefits alternatives and lack of response to medication. Also reviewed patient's medical history that there is does not appear to be any other etiology to his condition. Again reviewed ECT procedure continues to have difficulty with decision making in taking information 01/14/22 Support, educate, prepare for HCP affirmation-ECT 01/16/22 Increase Cymbalta to 60 mg daily Discontinue Sertraline 01/17/22 Decrease Cymbalta to 30 mg daily-Gerry is planning on beginning to refuse meds, will taper back slowly should he choose tapering. 01/19/22: no change to the above 01/20/22: no change 01/21/22: Anticipating court validation of HCP with increase in fear, anxiety and resulting anger. States he plans to refuse medications-dose of Cymbalta decreased to prepare to manage SE, however, pt is compliant with regime at this time. I spent minutes with the patient and/or on the patient floor today, greater than?50% of which was spent counseling/coordinating care. Patient educated on: medication risk/benefits and therapeutic strategies Informed Consent: further education needed Reason for contiued inpatient stay Substantial Risk for: inability to function and rapid decompensation
[2022-01-21 20:20] VITALS: BP 127/67; PULSE 91; TEMP 36.4; O2SAT 96
[2022-01-21] MEDS: Ferrous Sulfate 324 MG TABLET.DR PO (20:45)
[2022-01-22 06:00] VITALS: BP 114/76; PULSE 72; RESP 16; TEMP 36.7; O2SAT 96
[2022-01-22] MEDS: Omeprazole 40 MG CAPSULE.DR PO (06:11)
[2022-01-22] MEDS: amantadine HCL 100 MG CAPSULE PO ×2 (08:25→20:18)
[2022-01-22] MEDS: DULoxetine HCl 30 MG CAPSULE.DR PO (08:25)
[2022-01-22] MEDS: risperiDONE 1 MG TABLET PO ×2 (08:25→20:18)
[2022-01-22] MEDS: Sucralfate 1 GM TABLET PO ×3 (08:25→20:18)
--- NOTE | 2022-01-22 13:25 | P.PNPSI_ITS ---
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 Today, pt reports no questions. He reports he has not stopped medications. He reports no new physical symptoms or concerns. Medication Compliance: Yes Side effects from medications: No Attending Groups: No Review of Systems Acute medical concerns: No Medical Review of Systems: unchanged Review of Systems Reports behavioral changes Psychiatric: Reports anxiety, Reports behavioral changes, Reports depression, Reports difficulty concentrating, Reports hopelessness, Reports irritability, Reports anhedonia, Reports paranoia and Reports suicidal ideation (denies) Mental Status Exam Mental Status Exam Patient Appearance: Fatigued, Disheveled and Unkempt Patient Orientation: Person, Place, Time and Situation Level of Consciousness: Alert Patient Behavior: Talkative, Suspicious and Good Eye Contact Mood Description: Depressed and Angry Affect Description: Flat Patient Cognition Impaired: No Ability to Follow Directions: Good Speech Pattern: Spontaneous Speech Memory Description: Episodic Impaired Hallucinations: None Delusions: Paranoid Ideation Perceptual Disturbances: Depersonalization and Derealization Thought Process: Rumination Thought Content: positive for Perseveration Depressive Symptoms: Increased Anxiety and Increased Irritability Judgement: Fair Diagnostics Vital Signs (24Hr): Vital Signs - 24 hr 01/21/22 20:20 01/22/22 06:00 Temperature 97.6 F 98.0 F Pulse Rate 91 72 Respiratory Rate 16 Blood Pressure 127/67 114/76 Pulse Oximetry 96 96 BMI result Body Mass Index 29.1 Labs Results: 12/27/21 08:11 12/22/21 14:57 Imaging Radiology Impressions: ITS Impressions Foot X-Ray 11/08/21 17:32 IMPRESSION: Tiny Achilles heel spur. Otherwise unremarkable appearance of the left foot. Cervical Spine X-Ray 11/22/21 14:50 IMPRESSION: No fracture or malalignment. Mild degenerative changes. Forearm X-Ray 11/22/21 14:50 IMPRESSION: No acute fractures or malalignment within the imaged left upper extremity. Hip X-Ray 11/22/21 14:50 IMPRESSION: No acute fractures or malalignment. Humerus X-Ray 11/22/21 14:50 IMPRESSION: No acute fractures or malalignment within the imaged left upper extremity. Shoulder X-Ray 11/22/21 14:50 IMPRESSION: No acute fractures or malalignment within the imaged left upper extremity. Head CT 12/22/21 16:42 IMPRESSION: No acute intracranial pathology. Hand X-Ray 12/25/21 08:38 IMPRESSION: No soft tissue foreign body seen. Brain MRI 12/25/21 09:20 IMPRESSION: No acute intracranial findings. No acute infarcts. There is mild chronic microangiopathy. No pathologic enhancement. Lumbar Puncture Fluoroscopy 12/27/21 14:00 IMPRESSION: Successful ultrasound-guided lumbar puncture performed without immediate complications. Barium Swallow X-Ray 01/10/22 08:29 IMPRESSION: Unremarkable barium swallow in upright and supine position. Occasional secondary and tertiary peristalsis seen in mid and distal esophagus with solid foot but no obstruction.. Medications Medications Current Medications Acetaminophen (Acetaminophen 325 Mg Tablet) 650 mg PO Q6H PRN PRN Reason: Headache/Pain Mild Scale (1-3) Al Hydroxide/Mg Hydroxide (Magnesium Hydrox/Alum Hydrox 30 Ml Oral.Susp) 30 ml PO Q6H PRN PRN Reason: Heartburn/Nausea Amantadine HCl (Amantadine Hcl 100 Mg Capsule) 100 mg PO BID [facility] Last Admin: 01/22/22 08:25 Dose: 100 mg Documented by: Duloxetine HCl (Duloxetine Hcl 30 Mg Capsule.) 30 mg PO DAILY [facility] Last Admin: 01/22/22 08:25 Dose: 30 mg Documented by: Enoxaparin Sodium (Enoxaparin Sodium 40 Mg/0.4 Ml Syringe) 40 mg SUBCUT 2100 [facility] Last Admin: 12/25/21 19:24 Dose: 40 mg Documented by: Ferrous Sulfate (Ferrous Sulfate 324 Mg Tablet.) 324 mg PO BEDTIME [facility] Last Admin: 01/21/22 20:45 Dose: 324 mg Documented by: Hydroxyzine HCl (Hydroxyzine Hcl 25 Mg Tablet) 25 mg PO Q6H PRN PRN Reason: Anxiety Last Admin: 12/16/21 22:28 Dose: 25 mg Documented by: Loperamide HCl (Loperamide Hcl 2 Mg Capsule) 2 mg PO Q6H PRN PRN Reason: Diarrhea Last Admin: 11/17/21 13:40 Dose: 2 mg Documented by: Magnesium Hydroxide (Milk Of Magnesia 30 Ml Oral.Susp) 30 ml PO DAILY PRN PRN Reason: Constipation Omeprazole (Omeprazole 40 Mg Capsule.) 40 mg PO DAILY@0630 [facility] Last Admin: 01/22/22 06:11 Dose: 40 mg Documented by: Psyllium Hydrophilic Mucilloid (Psyllium Seed 3.4 Gm Powd.Pack) 3.4 gm PO BEDTIME [facility] Last Admin: 01/21/22 21:07 Dose: Not Given Documented by: Risperidone (Risperidone 1 Mg Tablet) 1 mg PO BID [facility] Last Admin: 01/22/22 08:25 Dose: 1 mg Documented by: Sucralfate (Sucralfate 1 Gm Tablet) 1 gm PO TID [facility] Last Admin: 01/22/22 08:25 Dose: 1 gm Documented by: Trazodone HCl (Trazodone Hcl 50 Mg Tablet) 50 mg PO BEDTIME PRN PRN Reason: Insomnia Allergies Allergies Allergy/AdvReac Type Severity Reaction Status Date / Time No Known Allergies Allergy Unverified 11/07/21 21:23 Assessment & Plan Assessment & Plan (1) MDD (major depressive disorder), recurrent, severe, with psychosis: Status: Acute Code(s): F33.3 - Major depressive disorder, recurrent, severe with psychotic symptoms (2) Encephalopathy chronic: Status: Acute Code(s): G93.49 - Other encephalopathy Plan Remains depressed, anergic, unable to make a clear decision/choice. HCP activated, today, pt able to give SSN for court paperwork Continue Cymbalta, Risperdal, Sertraline Work with pt, , team to move forward with plan of care- prepare for ECT Pt completed barium swallow- results negative 01/11/22 Increase Risperdal to 2 mg bid 01/12/2022 Patient seen extensively reviewed diagnosis expectation for treatment with ECT risks benefits alternatives and lack of response to medication. Also reviewed patient's medical history that there is does not appear to be any other etiology to his condition. Again reviewed ECT procedure continues to have difficulty with decision making in taking information 01/14/22 Support, educate, prepare for HCP affirmation-ECT 01/16/22 Increase Cymbalta to 60 mg daily Discontinue Sertraline 01/17/22 Decrease Cymbalta to 30 mg daily-Gerry is planning on beginning to refuse meds, will taper back slowly should he choose tapering. 01/19/22: no change to the above 01/20/22: no change 01/22/22: Gerry continues to accept medications. Cymbalta at 60 mg daily was not helpful-30 mg will decrease withdrawal sx should he choose to refuse dosing. HCP validation process continues, tentative date 01.25.22 Offer support if pt will accept it Prepare for ECT if HCP is validated. Educate as pt will allow. I spent minutes with the patient and/or on the patient floor today, greater than?50% of which was spent counseling/coordinating care. Informed Consent: does not understand Reason for contiued inpatient stay Substantial Risk for: inability to function and rapid decompensation
[2022-01-22] MEDS: Ferrous Sulfate 324 MG TABLET.DR PO (20:18)
[2022-01-22 20:30] VITALS: BP 113/63; PULSE 74; TEMP 36.6; O2SAT 98
[2022-01-23] MEDS: Omeprazole 40 MG CAPSULE.DR PO (05:56)
[2022-01-23 06:00] VITALS: BP 138/77; PULSE 67; RESP 18; TEMP 36.6; O2SAT 96
[2022-01-23] MEDS: DULoxetine HCl 30 MG CAPSULE.DR PO (08:26)
[2022-01-23] MEDS: amantadine HCL 100 MG CAPSULE PO ×2 (08:26→21:25)
[2022-01-23] MEDS: risperiDONE 1 MG TABLET PO ×2 (08:26→21:26)
[2022-01-23] MEDS: Sucralfate 1 GM TABLET PO ×3 (08:26→21:26)
--- NOTE | 2022-01-23 17:18 | HO.PSYCHPN ---
Subjective Subjective Date of Service: 01/23/22 Reason For Visit: unspecified bipolar and related d/o Subjective Notes: Conditional Voluntary (HCP activation) Healthcare Proxy: Yes Guardianship: No Medical Problems Affecting Mental Status: No Interim History: Gerry reports no change . He is visable on the unit- Attends to his meals/tray, will go to the medication room. Refuses groups Today, declines discussion. I am just waiting for you to electrocute me (referencing ECT). Education offered. Encouraged involvment Pt denies questions/concerns. Medication Compliance: Yes Side effects from medications: No Attending Groups: No Review of Systems Acute medical concerns: No Medical Review of Systems: unchanged Review of Systems Reports behavioral changes Psychiatric: Reports anxiety, Reports behavioral changes, Reports depression, Reports difficulty concentrating, Reports hopelessness, Reports irritability, Reports anhedonia, Reports paranoia and Reports suicidal ideation (denies) Mental Status Exam Mental Status Exam Patient Appearance: Fatigued, Disheveled and Unkempt Patient Orientation: Person, Place, Time and Situation Level of Consciousness: Alert Patient Behavior: Talkative, Suspicious and Good Eye Contact Mood Description: Depressed and Angry Affect Description: Flat Patient Cognition Impaired: No Ability to Follow Directions: Good Speech Pattern: Spontaneous Speech Memory Description: Episodic Impaired Hallucinations: None Delusions: Paranoid Ideation Perceptual Disturbances: Depersonalization and Derealization Thought Process: Rumination Thought Content: positive for Perseveration Depressive Symptoms: Increased Anxiety and Increased Irritability Judgement: Fair Diagnostics Vital Signs (24Hr): Vital Signs - 24 hr 01/22/22 20:30 01/23/22 06:00 Temperature 98 F 97.8 F Pulse Rate 74 67 Respiratory Rate 18 Blood Pressure 113/63 138/77 Pulse Oximetry 98 96 BMI result Body Mass Index 29.1 Labs Results: 12/27/21 08:11 12/22/21 14:57 Imaging Radiology Impressions: ITS Impressions Foot X-Ray 11/08/21 17:32 IMPRESSION: Tiny Achilles heel spur. Otherwise unremarkable appearance of the left foot. Cervical Spine X-Ray 11/22/21 14:50 IMPRESSION: No fracture or malalignment. Mild degenerative changes. Forearm X-Ray 11/22/21 14:50 IMPRESSION: No acute fractures or malalignment within the imaged left upper extremity. Hip X-Ray 11/22/21 14:50 IMPRESSION: No acute fractures or malalignment. Humerus X-Ray 11/22/21 14:50 IMPRESSION: No acute fractures or malalignment within the imaged left upper extremity. Shoulder X-Ray 11/22/21 14:50 IMPRESSION: No acute fractures or malalignment within the imaged left upper extremity. Head CT 12/22/21 16:42 IMPRESSION: No acute intracranial pathology. Hand X-Ray 12/25/21 08:38 IMPRESSION: No soft tissue foreign body seen. Brain MRI 12/25/21 09:20 IMPRESSION: No acute intracranial findings. No acute infarcts. There is mild chronic microangiopathy. No pathologic enhancement. Lumbar Puncture Fluoroscopy 12/27/21 14:00 IMPRESSION: Successful ultrasound-guided lumbar puncture performed without immediate complications. Barium Swallow X-Ray 01/10/22 08:29 IMPRESSION: Unremarkable barium swallow in upright and supine position. Occasional secondary and tertiary peristalsis seen in mid and distal esophagus with solid foot but no obstruction.. Medications Medications Current Medications Acetaminophen (Acetaminophen 325 Mg Tablet) 650 mg PO Q6H PRN PRN Reason: Headache/Pain Mild Scale (1-3) Al Hydroxide/Mg Hydroxide (Magnesium Hydrox/Alum Hydrox 30 Ml Oral.Susp) 30 ml PO Q6H PRN PRN Reason: Heartburn/Nausea Amantadine HCl (Amantadine Hcl 100 Mg Capsule) 100 mg PO BID [facility] Last Admin: 01/23/22 08:26 Dose: 100 mg Documented by: Duloxetine HCl (Duloxetine Hcl 30 Mg Capsule.) 30 mg PO DAILY [facility] [place] Last Admin: 01/23/22 08:26 Dose: 30 mg Documented by: Enoxaparin Sodium (Enoxaparin Sodium 40 Mg/0.4 Ml Syringe) 40 mg SUBCUT 2100 [facility] [place] Last Admin: 12/25/21 19:24 Dose: 40 mg Documented by: Ferrous Sulfate (Ferrous Sulfate 324 Mg Tablet.) 324 mg PO BEDTIME [facility] [place] Last Admin: 01/22/22 20:18 Dose: 324 mg Documented by: Hydroxyzine HCl (Hydroxyzine Hcl 25 Mg Tablet) 25 mg PO Q6H PRN PRN Reason: Anxiety Last Admin: 12/16/21 22:28 Dose: 25 mg Documented by: Loperamide HCl (Loperamide Hcl 2 Mg Capsule) 2 mg PO Q6H PRN PRN Reason: Diarrhea Last Admin: 11/17/21 13:40 Dose: 2 mg Documented by: Magnesium Hydroxide (Milk Of Magnesia 30 Ml Oral.Susp) 30 ml PO DAILY PRN PRN Reason: Constipation Omeprazole (Omeprazole 40 Mg Capsule.Dr) 40 mg PO DAILY@0630 [facility] [place] Last Admin: 01/23/22 05:56 Dose: 40 mg Documented by: Psyllium Hydrophilic Mucilloid (Psyllium Seed 3.4 Gm Powd.Pack) 3.4 gm PO BEDTIME [facility] [place] Last Admin: 01/22/22 21:19 Dose: Not Given Documented by: Risperidone (Risperidone 1 Mg Tablet) 1 mg PO BID [facility] [place] Last Admin: 01/23/22 08:26 Dose: 1 mg Documented by: Sucralfate (Sucralfate 1 Gm Tablet) 1 gm PO TID [facility] [place] Last Admin: 01/23/22 14:15 Dose: 1 gm Documented by: Trazodone HCl (Trazodone Hcl 50 Mg Tablet) 50 mg PO BEDTIME PRN PRN Reason: Insomnia Allergies Allergies Allergy/AdvReac Type Severity Reaction Status Date / Time No Known Allergies Allergy Unverified 11/07/21 21:23 Assessment & Plan Assessment & Plan (1) MDD (major depressive disorder), recurrent, severe, with psychosis: Status: Acute Code(s): F33.3 - Major depressive disorder, recurrent, severe with psychotic symptoms (2) Encephalopathy chronic: Status: Acute Code(s): G93.49 - Other encephalopathy Plan Remains depressed, anergic, unable to make a clear decision/choice. HCP activated, today, pt able to give SSN for court paperwork Continue Cymbalta, Risperdal, Sertraline Work with pt, , team to move forward with plan of care- prepare for ECT Pt completed barium swallow- results negative 01/11/22 Increase Risperdal to 2 mg bid 01/12/2022 Patient seen extensively reviewed diagnosis expectation for treatment with ECT risks benefits alternatives and lack of response to medication. Also reviewed patient's medical history that there is does not appear to be any other etiology to his condition. Again reviewed ECT procedure continues to have difficulty with decision making in taking information 01/14/22 Support, educate, prepare for HCP affirmation-ECT 01/16/22 Increase Cymbalta to 60 mg daily Discontinue Sertraline 01/17/22 Decrease Cymbalta to 30 mg daily-Gerry is planning on beginning to refuse meds, will taper back slowly should he choose tapering. 01/19/22: no change to the above 01/20/22: no change 01/21/22: Anticipating court validation of HCP with increase in fear, anxiety and resulting anger. States he plans to refuse medications-dose of Cymbalta decreased to prepare to manage SE, however, pt is compliant with regime at this time. 01/23/22: Continue current plan Offer support, answer questions, address concerns, attempt to manage pt's anxiety regarding treatment I spent minutes with the patient and/or on the patient floor today, greater than?50% of which was spent counseling/coordinating care. Patient educated on: therapeutic strategies Informed Consent: further education needed Reason for contiued inpatient stay Substantial Risk for: inability to function and rapid decompensation
[2022-01-23 19:45] VITALS: BP 122/78; PULSE 66; TEMP 36.8; O2SAT 98
[2022-01-23] MEDS: Ferrous Sulfate 324 MG TABLET.DR PO (21:26)
[2022-01-24 06:00] VITALS: BP 119/74; PULSE 73; RESP 17; TEMP 36.4; O2SAT 98
[2022-01-24] MEDS: Omeprazole 40 MG CAPSULE.DR PO (06:43)
[2022-01-24 07:00] VITALS: BMI 26.2
[2022-01-24] MEDS: DULoxetine HCl 30 MG CAPSULE.DR PO (09:52)
[2022-01-24] MEDS: risperiDONE 1 MG TABLET PO ×2 (09:52→20:14)
[2022-01-24] MEDS: amantadine HCL 100 MG CAPSULE PO ×2 (09:52→20:14)
[2022-01-24] MEDS: Sucralfate 1 GM TABLET PO ×3 (09:52→20:14)
--- NOTE | 2022-01-24 17:32 | HO.PSYCHPN ---
Subjective Subjective Date of Service: 01/24/22 Reason For Visit: unspecified bipolar and related d/o Subjective Notes: Conditional Voluntary (Activated HCP) Interim History: Gerry reports no current questions regarding plan of care. He is withdrawn and angry. States that we are going to electrocute him in an attempt to treat something when we do not know what it is. Assured pt there would be careful planning with his and team prior to interventions. Plans to attend court tomorrow via Zoom he reports. Medication Compliance: Yes Side effects from medications: No Attending Groups: No Review of Systems Acute medical concerns: No Medical Review of Systems: unchanged Review of Systems Reports behavioral changes Psychiatric: Reports anxiety, Reports behavioral changes, Reports depression, Reports difficulty concentrating, Reports hopelessness, Reports irritability, Reports anhedonia, Reports paranoia and Reports suicidal ideation (denies) Mental Status Exam Mental Status Exam Patient Appearance: Fatigued, Disheveled and Unkempt Patient Orientation: Person, Place, Time and Situation Level of Consciousness: Alert Patient Behavior: Talkative, Suspicious and Good Eye Contact Mood Description: Depressed and Angry Affect Description: Flat Patient Cognition Impaired: No Ability to Follow Directions: Good Speech Pattern: Spontaneous Speech Memory Description: Episodic Impaired Hallucinations: None Delusions: Paranoid Ideation Perceptual Disturbances: Depersonalization and Derealization Thought Process: Rumination Thought Content: positive for Perseveration Depressive Symptoms: Increased Anxiety and Increased Irritability Judgement: Fair Diagnostics Vital Signs (24Hr): Vital Signs - 24 hr 01/23/22 19:45 01/24/22 06:00 Temperature 98.3 F 97.6 F Pulse Rate 66 73 Respiratory Rate 17 Blood Pressure 122/78 119/74 Pulse Oximetry 98 98 BMI result Body Mass Index 26.2 Labs Results: 12/27/21 08:11 12/22/21 14:57 Imaging Radiology Impressions: ITS Impressions Foot X-Ray 11/08/21 17:32 IMPRESSION: Tiny Achilles heel spur. Otherwise unremarkable appearance of the left foot. Cervical Spine X-Ray 11/22/21 14:50 IMPRESSION: No fracture or malalignment. Mild degenerative changes. Forearm X-Ray 11/22/21 14:50 IMPRESSION: No acute fractures or malalignment within the imaged left upper extremity. Hip X-Ray 11/22/21 14:50 IMPRESSION: No acute fractures or malalignment. Humerus X-Ray 11/22/21 14:50 IMPRESSION: No acute fractures or malalignment within the imaged left upper extremity. Shoulder X-Ray 11/22/21 14:50 IMPRESSION: No acute fractures or malalignment within the imaged left upper extremity. Head CT 12/22/21 16:42 IMPRESSION: No acute intracranial pathology. Hand X-Ray 12/25/21 08:38 IMPRESSION: No soft tissue foreign body seen. Brain MRI 12/25/21 09:20 IMPRESSION: No acute intracranial findings. No acute infarcts. There is mild chronic microangiopathy. No pathologic enhancement. Lumbar Puncture Fluoroscopy 12/27/21 14:00 IMPRESSION: Successful ultrasound-guided lumbar puncture performed without immediate complications. Barium Swallow X-Ray 01/10/22 08:29 IMPRESSION: Unremarkable barium swallow in upright and supine position. Occasional secondary and tertiary peristalsis seen in mid and distal esophagus with solid foot but no obstruction.. Medications Medications Current Medications Acetaminophen (Acetaminophen 325 Mg Tablet) 650 mg PO Q6H PRN PRN Reason: Headache/Pain Mild Scale (1-3) Al Hydroxide/Mg Hydroxide (Magnesium Hydrox/Alum Hydrox 30 Ml Oral.Susp) 30 ml PO Q6H PRN PRN Reason: Heartburn/Nausea Amantadine HCl (Amantadine Hcl 100 Mg Capsule) 100 mg PO BID [facility] Last Admin: 01/24/22 09:52 Dose: 100 mg Documented by: Duloxetine HCl (Duloxetine Hcl 30 Mg Capsule.) 30 mg PO DAILY [facility] Last Admin: 01/24/22 09:52 Dose: 30 mg Documented by: Enoxaparin Sodium (Enoxaparin Sodium 40 Mg/0.4 Ml Syringe) 40 mg SUBCUT 2100 [facility] Last Admin: 12/25/21 19:24 Dose: 40 mg Documented by: Ferrous Sulfate (Ferrous Sulfate 324 Mg Tablet.) 324 mg PO BEDTIME [facility] Last Admin: 01/23/22 21:26 Dose: 324 mg Documented by: Hydroxyzine HCl (Hydroxyzine Hcl 25 Mg Tablet) 25 mg PO Q6H PRN PRN Reason: Anxiety Last Admin: 12/16/21 22:28 Dose: 25 mg Documented by: Loperamide HCl (Loperamide Hcl 2 Mg Capsule) 2 mg PO Q6H PRN PRN Reason: Diarrhea Last Admin: 11/17/21 13:40 Dose: 2 mg Documented by: Magnesium Hydroxide (Milk Of Magnesia 30 Ml Oral.Susp) 30 ml PO DAILY PRN PRN Reason: Constipation Omeprazole (Omeprazole 40 Mg Capsule.Dr) 40 mg PO DAILY@0630 [facility] Last Admin: 01/24/22 06:43 Dose: 40 mg Documented by: Psyllium Hydrophilic Mucilloid (Psyllium Seed 3.4 Gm Powd.Pack) 3.4 gm PO BEDTIME [facility] Last Admin: 01/23/22 21:59 Dose: Not Given Documented by: Risperidone (Risperidone 1 Mg Tablet) 1 mg PO BID [facility] Last Admin: 01/24/22 09:52 Dose: 1 mg Documented by: Sucralfate (Sucralfate 1 Gm Tablet) 1 gm PO TID [facility] Last Admin: 01/24/22 14:49 Dose: 1 gm Documented by: Trazodone HCl (Trazodone Hcl 50 Mg Tablet) 50 mg PO BEDTIME PRN PRN Reason: Insomnia Allergies Allergies Allergy/AdvReac Type Severity Reaction Status Date / Time No Known Allergies Allergy Unverified 11/07/21 21:23 Assessment & Plan Assessment & Plan (1) MDD (major depressive disorder), recurrent, severe, with psychosis: Status: Acute Code(s): F33.3 - Major depressive disorder, recurrent, severe with psychotic symptoms (2) Encephalopathy chronic: Status: Acute Code(s): G93.49 - Other encephalopathy Plan Remains depressed, anergic, unable to make a clear decision/choice. HCP activated, today, pt able to give SSN for court paperwork Continue Cymbalta, Risperdal, Sertraline Work with pt, , team to move forward with plan of care- prepare for ECT Pt completed barium swallow- results negative 01/11/22 Increase Risperdal to 2 mg bid 01/12/2022 Patient seen extensively reviewed diagnosis expectation for treatment with ECT risks benefits alternatives and lack of response to medication. Also reviewed patient's medical history that there is does not appear to be any other etiology to his condition. Again reviewed ECT procedure continues to have difficulty with decision making in taking information 01/14/22 Support, educate, prepare for HCP affirmation-ECT 01/16/22 Increase Cymbalta to 60 mg daily Discontinue Sertraline 01/17/22 Decrease Cymbalta to 30 mg daily-Gerry is planning on beginning to refuse meds, will taper back slowly should he choose tapering. 01/19/22: no change to the above 01/20/22: no change 01/21/22: Anticipating court validation of HCP with increase in fear, anxiety and resulting anger. States he plans to refuse medications-dose of Cymbalta decreased to prepare to manage SE, however, pt is compliant with regime at this time. 01/23/22: Continue current plan Offer support, answer questions, address concerns, attempt to manage pt's anxiety regarding treatment 01/24/22: Court hearing 01/25/22. Offer support to pt. Continue current medications-pt has not refused his regime he reports today. I spent minutes with the patient and/or on the patient floor today, greater than?50% of which was spent counseling/coordinating care. Patient educated on: diagnosis and therapeutic strategies Informed Consent: does not understand and further education needed Reason for contiued inpatient stay Substantial Risk for: inability to function, rapid decompensation and med/psych decompensation
[2022-01-24 18:35] VITALS: BP 121/70; PULSE 83
[2022-01-24] MEDS: Ferrous Sulfate 324 MG TABLET.DR PO (20:14)
[2022-01-25 06:00] VITALS: BP 120/72; PULSE 68; RESP 18; TEMP 36.6; O2SAT 97
[2022-01-25] MEDS: Omeprazole 40 MG CAPSULE.DR PO (06:12)
[2022-01-25] MEDS: risperiDONE 1 MG TABLET PO ×2 (08:38→20:14)
[2022-01-25] MEDS: amantadine HCL 100 MG CAPSULE PO ×2 (08:38→20:15)
[2022-01-25] MEDS: Sucralfate 1 GM TABLET PO ×3 (08:39→20:14)
[2022-01-25] MEDS: DULoxetine HCl 30 MG CAPSULE.DR PO (08:39)
--- NOTE | 2022-01-25 17:59 | HO.PSYCHPN ---
Subjective Subjective Date of Service: 01/25/22 Reason For Visit: unspecified bipolar and related d/o Subjective Notes: Conditional Voluntary (HCP activation) Healthcare Proxy: Yes Guardianship: No Medical Problems Affecting Mental Status: No Interim History: HCP validated by the court. Gerry did attend via Zoom. He reports he thought the process was not needed. All of you knew it would go through anyway. Now I get electrocuted . Attempted to discuss the outcome, interventions. Pt quiet, passive, not willing to engage today in much discussion. Medication Compliance: Yes Side effects from medications: No Attending Groups: No Review of Systems Acute medical concerns: No Medical Review of Systems: unchanged Review of Systems Reports behavioral changes Psychiatric: Reports anxiety, Reports behavioral changes, Reports depression, Reports difficulty concentrating, Reports hopelessness, Reports irritability, Reports anhedonia, Reports paranoia and Reports suicidal ideation (denies) Mental Status Exam Mental Status Exam Patient Appearance: Fatigued, Disheveled and Unkempt Patient Orientation: Person, Place, Time and Situation Level of Consciousness: Alert Patient Behavior: Talkative, Suspicious and Good Eye Contact Mood Description: Depressed and Angry Affect Description: Flat Patient Cognition Impaired: No Ability to Follow Directions: Good Speech Pattern: Spontaneous Speech Memory Description: Episodic Impaired Hallucinations: None Delusions: Paranoid Ideation Perceptual Disturbances: Depersonalization and Derealization Thought Process: Rumination Thought Content: positive for Perseveration Depressive Symptoms: Increased Anxiety and Increased Irritability Judgement: Fair Diagnostics Vital Signs (24Hr): Vital Signs - 24 hr 01/24/22 18:35 01/25/22 06:00 Temperature 97.9 F Pulse Rate 83 68 Respiratory Rate 18 Blood Pressure 121/70 120/72 Pulse Oximetry 97 BMI result Body Mass Index 26.2 Labs Results: 12/27/21 08:11 12/22/21 14:57 Imaging Radiology Impressions: ITS Impressions Foot X-Ray 11/08/21 17:32 IMPRESSION: Tiny Achilles heel spur. Otherwise unremarkable appearance of the left foot. Cervical Spine X-Ray 11/22/21 14:50 IMPRESSION: No fracture or malalignment. Mild degenerative changes. Forearm X-Ray 11/22/21 14:50 IMPRESSION: No acute fractures or malalignment within the imaged left upper extremity. Hip X-Ray 11/22/21 14:50 IMPRESSION: No acute fractures or malalignment. Humerus X-Ray 11/22/21 14:50 IMPRESSION: No acute fractures or malalignment within the imaged left upper extremity. Shoulder X-Ray 11/22/21 14:50 IMPRESSION: No acute fractures or malalignment within the imaged left upper extremity. Head CT 12/22/21 16:42 IMPRESSION: No acute intracranial pathology. Hand X-Ray 12/25/21 08:38 IMPRESSION: No soft tissue foreign body seen. Brain MRI 12/25/21 09:20 IMPRESSION: No acute intracranial findings. No acute infarcts. There is mild chronic microangiopathy. No pathologic enhancement. Lumbar Puncture Fluoroscopy 12/27/21 14:00 IMPRESSION: Successful ultrasound-guided lumbar puncture performed without immediate complications. Barium Swallow X-Ray 01/10/22 08:29 IMPRESSION: Unremarkable barium swallow in upright and supine position. Occasional secondary and tertiary peristalsis seen in mid and distal esophagus with solid foot but no obstruction.. Medications Medications Current Medications Acetaminophen (Acetaminophen 325 Mg Tablet) 650 mg PO Q6H PRN PRN Reason: Headache/Pain Mild Scale (1-3) Al Hydroxide/Mg Hydroxide (Magnesium Hydrox/Alum Hydrox 30 Ml Oral.Susp) 30 ml PO Q6H PRN PRN Reason: Heartburn/Nausea Amantadine HCl (Amantadine Hcl 100 Mg Capsule) 100 mg PO BID [facility] Last Admin: 01/25/22 08:38 Dose: 100 mg Documented by: Duloxetine HCl (Duloxetine Hcl 30 Mg Capsule.) 30 mg PO DAILY [facility] Last Admin: 01/25/22 08:39 Dose: 30 mg Documented by: Enoxaparin Sodium (Enoxaparin Sodium 40 Mg/0.4 Ml Syringe) 40 mg SUBCUT 2100 [facility] Last Admin: 12/25/21 19:24 Dose: 40 mg Documented by: Ferrous Sulfate (Ferrous Sulfate 324 Mg Tablet.) 324 mg PO BEDTIME [facility] Last Admin: 01/24/22 20:14 Dose: 324 mg Documented by: Hydroxyzine HCl (Hydroxyzine Hcl 25 Mg Tablet) 25 mg PO Q6H PRN PRN Reason: Anxiety Last Admin: 12/16/21 22:28 Dose: 25 mg Documented by: Loperamide HCl (Loperamide Hcl 2 Mg Capsule) 2 mg PO Q6H PRN PRN Reason: Diarrhea Last Admin: 11/17/21 13:40 Dose: 2 mg Documented by: Magnesium Hydroxide (Milk Of Magnesia 30 Ml Oral.Susp) 30 ml PO DAILY PRN PRN Reason: Constipation Omeprazole (Omeprazole 40 Mg Capsule.Dr) 40 mg PO DAILY@0630 [facility] Last Admin: 01/25/22 06:12 Dose: 40 mg Documented by: Psyllium Hydrophilic Mucilloid (Psyllium Seed 3.4 Gm Powd.Pack) 3.4 gm PO BEDTIME [facility] Last Admin: 01/24/22 20:14 Dose: Not Given Documented by: Risperidone (Risperidone 1 Mg Tablet) 1 mg PO BID [facility] Last Admin: 01/25/22 08:38 Dose: 1 mg Documented by: Sucralfate (Sucralfate 1 Gm Tablet) 1 gm PO TID [facility] Last Admin: 01/25/22 14:04 Dose: 1 gm Documented by: Trazodone HCl (Trazodone Hcl 50 Mg Tablet) 50 mg PO BEDTIME PRN PRN Reason: Insomnia Allergies Allergies Allergy/AdvReac Type Severity Reaction Status Date / Time No Known Allergies Allergy Unverified 11/07/21 21:23 Assessment & Plan Assessment & Plan (1) MDD (major depressive disorder), recurrent, severe, with psychosis: Status: Acute Code(s): F33.3 - Major depressive disorder, recurrent, severe with psychotic symptoms (2) Encephalopathy chronic: Status: Acute Code(s): G93.49 - Other encephalopathy Plan Remains depressed, anergic, unable to make a clear decision/choice. HCP activated, today, pt able to give SSN for court paperwork Continue Cymbalta, Risperdal, Sertraline Work with pt, , team to move forward with plan of care- prepare for ECT Pt completed barium swallow- results negative 01/11/22 Increase Risperdal to 2 mg bid 01/12/2022 Patient seen extensively reviewed diagnosis expectation for treatment with ECT risks benefits alternatives and lack of response to medication. Also reviewed patient's medical history that there is does not appear to be any other etiology to his condition. Again reviewed ECT procedure continues to have difficulty with decision making in taking information 01/14/22 Support, educate, prepare for HCP affirmation-ECT 01/16/22 Increase Cymbalta to 60 mg daily Discontinue Sertraline 01/17/22 Decrease Cymbalta to 30 mg daily-Gerry is planning on beginning to refuse meds, will taper back slowly should he choose tapering. 01/19/22: no change to the above 01/20/22: no change 01/21/22: Anticipating court validation of HCP with increase in fear, anxiety and resulting anger. States he plans to refuse medications-dose of Cymbalta decreased to prepare to manage SE, however, pt is compliant with regime at this time. 01/23/22: Continue current plan Offer support, answer questions, address concerns, attempt to manage pt's anxiety regarding treatment 01/24/22: Court hearing 01/25/22. Offer support to pt. Continue current medications-pt has not refused his regime he reports today. 01/25/22: Discussed with team-Initial planning with Gerry and his to address negative emotions surrounding treatment and outcome so we may help Gerry move toward his recovery in a positive frame of reference. I spent minutes with the patient and/or on the patient floor today, greater than?50% of which was spent counseling/coordinating care. Patient educated on: therapeutic strategies and other Informed Consent: understands and further education needed Reason for contiued inpatient stay Substantial Risk for: inability to function, rapid decompensation and med/psych decompensation
[2022-01-25 19:55] VITALS: BP 112/69; PULSE 76
[2022-01-25] MEDS: Ferrous Sulfate 324 MG TABLET.DR PO (20:14)
[2022-01-26 06:00] VITALS: BP 135/80; PULSE 62; RESP 16; TEMP 36.6; O2SAT 98
[2022-01-26] MEDS: Omeprazole 40 MG CAPSULE.DR PO (06:33)
[2022-01-26] MEDS: amantadine HCL 100 MG CAPSULE PO ×2 (08:55→20:41)
[2022-01-26] MEDS: DULoxetine HCl 30 MG CAPSULE.DR PO (08:55)
[2022-01-26] MEDS: risperiDONE 1 MG TABLET PO ×2 (08:55→20:41)
[2022-01-26] MEDS: Sucralfate 1 GM TABLET PO ×3 (08:55→20:41)
[2022-01-26 18:00] VITALS: BP 146/79; PULSE 68; RESP 18; TEMP 36.6; O2SAT 98
[2022-01-26] MEDS: Ferrous Sulfate 324 MG TABLET.DR PO (20:42)
--- NOTE | 2022-01-26 23:36 | P.PNPSI_ITS ---
Subjective Subjective Date of Service: 01/26/22 Reason For Visit: unspecified bipolar and related d/o Interim History: pt seen; says he's ok and denies any complaints and has no requests. Showered today with prompting. Mental Status Exam Mental Status Exam Narrative: Patient Appearance:?in hospital gown; hair unkempt Patient Orientation:?Person, Place, Time and Situation Level of Consciousness:?Alert Patient Behavior:?calm, friendly; adequate Good Eye Contact Mood Description:?Depressed Affect Description:?Flat Patient Cognition Impaired:?No Ability to Follow Directions:?Good Speech Pattern:?Spontaneous Speech Memory Description:?Episodic Impaired Hallucinations:?None Delusions:?Paranoid Ideation Perceptual Disturbances:?Depersonalization and Derealization Thought Process:?Rumination Thought Content:?vacuous Depressive Symptoms:?Increased Anxiety and Increased Irritability Judgement:?Fair Diagnostics Vital Signs (24Hr): Vital Signs - 24 hr 01/26/22 06:00 01/26/22 18:00 Temperature 98 F 98 F Pulse Rate 62 68 Respiratory Rate 16 18 Blood Pressure 135/80 146/79 H Pulse Oximetry 98 98 BMI result Body Mass Index 26.2 Labs Results: 12/27/21 08:11 12/22/21 14:57 Imaging Radiology Impressions: ITS Impressions Foot X-Ray 11/08/21 17:32 IMPRESSION: Tiny Achilles heel spur. Otherwise unremarkable appearance of the left foot. Cervical Spine X-Ray 11/22/21 14:50 IMPRESSION: No fracture or malalignment. Mild degenerative changes. Forearm X-Ray 11/22/21 14:50 IMPRESSION: No acute fractures or malalignment within the imaged left upper extremity. Hip X-Ray 11/22/21 14:50 IMPRESSION: No acute fractures or malalignment. Humerus X-Ray 11/22/21 14:50 IMPRESSION: No acute fractures or malalignment within the imaged left upper extremity. Shoulder X-Ray 11/22/21 14:50 IMPRESSION: No acute fractures or malalignment within the imaged left upper extremity. Head CT 12/22/21 16:42 IMPRESSION: No acute intracranial pathology. Hand X-Ray 12/25/21 08:38 IMPRESSION: No soft tissue foreign body seen. Brain MRI 12/25/21 09:20 IMPRESSION: No acute intracranial findings. No acute infarcts. There is mild chronic microangiopathy. No pathologic enhancement. Lumbar Puncture Fluoroscopy 12/27/21 14:00 IMPRESSION: Successful ultrasound-guided lumbar puncture performed without immediate complications. Barium Swallow X-Ray 01/10/22 08:29 IMPRESSION: Unremarkable barium swallow in upright and supine position. Occasional secondary and tertiary peristalsis seen in mid and distal esophagus with solid foot but no obstruction.. Medications Medications Current Medications Acetaminophen (Acetaminophen 325 Mg Tablet) 650 mg PO Q6H PRN PRN Reason: Headache/Pain Mild Scale (1-3) Al Hydroxide/Mg Hydroxide (Magnesium Hydrox/Alum Hydrox 30 Ml Oral.Susp) 30 ml PO Q6H PRN PRN Reason: Heartburn/Nausea Amantadine HCl (Amantadine Hcl 100 Mg Capsule) 100 mg PO BID [facility] Last Admin: 01/26/22 20:41 Dose: 100 mg Documented by: Duloxetine HCl (Duloxetine Hcl 30 Mg Capsule.) 30 mg PO DAILY [facility] Last Admin: 01/26/22 08:55 Dose: 30 mg Documented by: Enoxaparin Sodium (Enoxaparin Sodium 40 Mg/0.4 Ml Syringe) 40 mg SUBCUT 2100 [facility] Last Admin: 12/25/21 19:24 Dose: 40 mg Documented by: Ferrous Sulfate (Ferrous Sulfate 324 Mg Tablet.) 324 mg PO BEDTIME [facility] Last Admin: 01/26/22 20:42 Dose: 324 mg Documented by: Hydroxyzine HCl (Hydroxyzine Hcl 25 Mg Tablet) 25 mg PO Q6H PRN PRN Reason: Anxiety Last Admin: 12/16/21 22:28 Dose: 25 mg Documented by: Loperamide HCl (Loperamide Hcl 2 Mg Capsule) 2 mg PO Q6H PRN PRN Reason: Diarrhea Last Admin: 11/17/21 13:40 Dose: 2 mg Documented by: Magnesium Hydroxide (Milk Of Magnesia 30 Ml Oral.Susp) 30 ml PO DAILY PRN PRN Reason: Constipation Omeprazole (Omeprazole 40 Mg Capsule.) 40 mg PO DAILY@0630 [facility] Last Admin: 01/26/22 06:33 Dose: 40 mg Documented by: Psyllium Hydrophilic Mucilloid (Psyllium Seed 3.4 Gm Powd.Pack) 3.4 gm PO BEDTIME [facility] Last Admin: 01/26/22 20:41 Dose: Not Given Documented by: Risperidone (Risperidone 1 Mg Tablet) 1 mg PO BID [facility] Last Admin: 01/26/22 20:41 Dose: 1 mg Documented by: Sucralfate (Sucralfate 1 Gm Tablet) 1 gm PO TID [facility] Last Admin: 01/26/22 20:41 Dose: 1 gm Documented by: Trazodone HCl (Trazodone Hcl 50 Mg Tablet) 50 mg PO BEDTIME PRN PRN Reason: Insomnia Allergies Allergies Allergy/AdvReac Type Severity Reaction Status Date / Time No Known Allergies Allergy Unverified 11/07/21 21:23 Assessment & Plan Assessment & Plan (1) MDD (major depressive disorder), recurrent, severe, with psychosis: Status: Acute Code(s): F33.3 - Major depressive disorder, recurrent, severe with psychotic symptoms (2) Encephalopathy chronic: Status: Acute Code(s): G93.49 - Other encephalopathy Plan Remains depressed, anergic, unable to make a clear decision/choice. HCP activated, today, pt able to give SSN for court paperwork Continue Cymbalta, Risperdal, Sertraline Work with pt, , team to move forward with plan of care- prepare for ECT Pt completed barium swallow- results negative 01/11/22 Increase Risperdal to 2 mg bid 01/12/2022 Patient seen extensively reviewed diagnosis expectation for treatment with ECT risks benefits alternatives and lack of response to medication. Also reviewed patient's medical history that there is does not appear to be any other etiology to his condition. Again reviewed ECT procedure continues to have difficulty with decision making in taking information 01/14/22 Support, educate, prepare for HCP affirmation-ECT 01/16/22 Increase Cymbalta to 60 mg daily Discontinue Sertraline 01/17/22 Decrease Cymbalta to 30 mg daily-Gerry is planning on beginning to refuse meds, will taper back slowly should he choose tapering. 01/19/22: no change to the above 01/20/22: no change 01/21/22: Anticipating court validation of HCP with increase in fear, anxiety and resulting anger. States he plans to refuse medications-dose of Cymbalta decreased to prepare to manage SE, however, pt is compliant with regime at this time. 01/23/22: Continue current plan Offer support, answer questions, address concerns, attempt to manage pt's anxiety regarding treatment 01/24/22: Court hearing 01/25/22. Offer support to pt. Continue current medications-pt has not refused his regime he reports today. 01/25/22: Discussed with team-Initial planning with Gerry and his to address negative emotions surrounding treatment and outcome so we may help Gerry move toward his recovery in a positive frame of reference. 01/26 no changes to current tx regimen I spent minutes with the patient and/or on the patient floor today, greater than?50% of which was spent counseling/coordinating care. Reason for contiued inpatient stay Substantial Risk for: inability to function
[2022-01-27] MEDS: Omeprazole 40 MG CAPSULE.DR PO (05:27)
[2022-01-27 06:00] VITALS: BP 110/72; PULSE 72; RESP 18; TEMP 36.7; O2SAT 99
[2022-01-27] MEDS: risperiDONE 1 MG TABLET PO ×2 (08:49→19:57)
[2022-01-27] MEDS: amantadine HCL 100 MG CAPSULE PO ×2 (08:49→19:57)
[2022-01-27] MEDS: DULoxetine HCl 30 MG CAPSULE.DR PO (08:49)
[2022-01-27] MEDS: Sucralfate 1 GM TABLET PO ×3 (08:49→19:57)
--- NOTE | 2022-01-27 17:27 | HO.PSYCHPN ---
Subjective Subjective Date of Service: 01/27/22 Reason For Visit: unspecified bipolar and related d/o Interim History: pt says he's 'good ; denies SI/HI; denies complaints or requests Mental Status Exam Mental Status Exam Narrative: Patient Appearance:?in hospital gown; hair unkempt Patient Orientation:?Person, Place, Time and Situation Level of Consciousness:?Alert Patient Behavior:?calm, friendly; adequate Good Eye Contact Mood Description:?Depressed? Affect Description:?Flat Patient Cognition Impaired:?No Ability to Follow Directions:?Good Speech Pattern:?Spontaneous Speech Memory Description:?Episodic Impaired Hallucinations:?None Delusions:?Paranoid Ideation Perceptual Disturbances:?Depersonalization and Derealization Thought Process:?Rumination Thought Content:?vacuous Depressive Symptoms:?Increased Anxiety and Increased Irritability Judgement:?Fair Diagnostics Vital Signs (24Hr): Vital Signs - 24 hr 01/26/22 18:00 01/27/22 06:00 Temperature 98 F 98.1 F Pulse Rate 68 72 Respiratory Rate 18 18 Blood Pressure 146/79 H 110/72 Pulse Oximetry 98 99 BMI result Body Mass Index 26.2 Labs Results: 12/27/21 08:11 12/22/21 14:57 Imaging Radiology Impressions: ITS Impressions Foot X-Ray 11/08/21 17:32 IMPRESSION: Tiny Achilles heel spur. Otherwise unremarkable appearance of the left foot. Cervical Spine X-Ray 11/22/21 14:50 IMPRESSION: No fracture or malalignment. Mild degenerative changes. Forearm X-Ray 11/22/21 14:50 IMPRESSION: No acute fractures or malalignment within the imaged left upper extremity. Hip X-Ray 11/22/21 14:50 IMPRESSION: No acute fractures or malalignment. Humerus X-Ray 11/22/21 14:50 IMPRESSION: No acute fractures or malalignment within the imaged left upper extremity. Shoulder X-Ray 11/22/21 14:50 IMPRESSION: No acute fractures or malalignment within the imaged left upper extremity. Head CT 12/22/21 16:42 IMPRESSION: No acute intracranial pathology. Hand X-Ray 12/25/21 08:38 IMPRESSION: No soft tissue foreign body seen. Brain MRI 12/25/21 09:20 IMPRESSION: No acute intracranial findings. No acute infarcts. There is mild chronic microangiopathy. No pathologic enhancement. Lumbar Puncture Fluoroscopy 12/27/21 14:00 IMPRESSION: Successful ultrasound-guided lumbar puncture performed without immediate complications. Barium Swallow X-Ray 01/10/22 08:29 IMPRESSION: Unremarkable barium swallow in upright and supine position. Occasional secondary and tertiary peristalsis seen in mid and distal esophagus with solid foot but no obstruction.. Medications Medications Current Medications Acetaminophen (Acetaminophen 325 Mg Tablet) 650 mg PO Q6H PRN PRN Reason: Headache/Pain Mild Scale (1-3) Al Hydroxide/Mg Hydroxide (Magnesium Hydrox/Alum Hydrox 30 Ml Oral.Susp) 30 ml PO Q6H PRN PRN Reason: Heartburn/Nausea Amantadine HCl (Amantadine Hcl 100 Mg Capsule) 100 mg PO BID [facility] Last Admin: 01/27/22 08:49 Dose: 100 mg Documented by: Duloxetine HCl (Duloxetine Hcl 30 Mg Capsule.) 30 mg PO DAILY [facility] Last Admin: 01/27/22 08:49 Dose: 30 mg Documented by: Enoxaparin Sodium (Enoxaparin Sodium 40 Mg/0.4 Ml Syringe) 40 mg SUBCUT 2100 [facility] Last Admin: 12/25/21 19:24 Dose: 40 mg Documented by: Ferrous Sulfate (Ferrous Sulfate 324 Mg Tablet.) 324 mg PO BEDTIME [facility] Last Admin: 01/26/22 20:42 Dose: 324 mg Documented by: Hydroxyzine HCl (Hydroxyzine Hcl 25 Mg Tablet) 25 mg PO Q6H PRN PRN Reason: Anxiety Last Admin: 12/16/21 22:28 Dose: 25 mg Documented by: Loperamide HCl (Loperamide Hcl 2 Mg Capsule) 2 mg PO Q6H PRN PRN Reason: Diarrhea Last Admin: 11/17/21 13:40 Dose: 2 mg Documented by: Magnesium Hydroxide (Milk Of Magnesia 30 Ml Oral.Susp) 30 ml PO DAILY PRN PRN Reason: Constipation Omeprazole (Omeprazole 40 Mg Capsule.) 40 mg PO DAILY@0630 [facility] Last Admin: 01/27/22 05:27 Dose: 40 mg Documented by: Psyllium Hydrophilic Mucilloid (Psyllium Seed 3.4 Gm Powd.Pack) 3.4 gm PO BEDTIME [facility] Last Admin: 01/26/22 20:41 Dose: Not Given Documented by: Risperidone (Risperidone 1 Mg Tablet) 1 mg PO BID [facility] Last Admin: 01/27/22 08:49 Dose: 1 mg Documented by: Sucralfate (Sucralfate 1 Gm Tablet) 1 gm PO TID [facility] Last Admin: 01/27/22 14:13 Dose: 1 gm Documented by: Trazodone HCl (Trazodone Hcl 50 Mg Tablet) 50 mg PO BEDTIME PRN PRN Reason: Insomnia Allergies Allergies Allergy/AdvReac Type Severity Reaction Status Date / Time No Known Allergies Allergy Unverified 11/07/21 21:23 Assessment & Plan Assessment & Plan (1) MDD (major depressive disorder), recurrent, severe, with psychosis: Status: Acute Code(s): F33.3 - Major depressive disorder, recurrent, severe with psychotic symptoms (2) Encephalopathy chronic: Status: Acute Code(s): G93.49 - Other encephalopathy Plan Remains depressed, anergic, unable to make a clear decision/choice. HCP activated, today, pt able to give SSN for court paperwork Continue Cymbalta, Risperdal, Sertraline Work with pt, , team to move forward with plan of care- prepare for ECT Pt completed barium swallow- results negative 01/11/22 Increase Risperdal to 2 mg bid 01/12/2022 Patient seen extensively reviewed diagnosis expectation for treatment with ECT risks benefits alternatives and lack of response to medication. Also reviewed patient's medical history that there is does not appear to be any other etiology to his condition. Again reviewed ECT procedure continues to have difficulty with decision making in taking information 01/14/22 Support, educate, prepare for HCP affirmation-ECT 01/16/22 Increase Cymbalta to 60 mg daily Discontinue Sertraline 01/17/22 Decrease Cymbalta to 30 mg daily-Gerry is planning on beginning to refuse meds, will taper back slowly should he choose tapering. 01/19/22: no change to the above 01/20/22: no change 01/21/22: Anticipating court validation of HCP with increase in fear, anxiety and resulting anger. States he plans to refuse medications-dose of Cymbalta decreased to prepare to manage SE, however, pt is compliant with regime at this time. 01/23/22: Continue current plan Offer support, answer questions, address concerns, attempt to manage pt's anxiety regarding treatment 3/10/22: Court hearing 01/25/22. Offer support to pt. Continue current medications-pt has not refused his regime he reports today. 01/25/22: Discussed with team-Initial planning with Gerry and his to address negative emotions surrounding treatment and outcome so we may help Gerry move toward his recovery in a positive frame of reference. 01/26 no changes to current tx regimen 01/27 no changes to current tx regimen I spent minutes with the patient and/or on the patient floor today, greater than?50% of which was spent counseling/coordinating care. Reason for contiued inpatient stay Substantial Risk for: inability to function
[2022-01-27 18:00] VITALS: BP 126/78; PULSE 86; RESP 16; TEMP 36.5; O2SAT 98
[2022-01-27] MEDS: Ferrous Sulfate 324 MG TABLET.DR PO (19:57)
[2022-01-28 06:00] VITALS: BP 131/78; PULSE 75; RESP 18; TEMP 36.6; O2SAT 98
[2022-01-28] MEDS: Omeprazole 40 MG CAPSULE.DR PO (07:25)
[2022-01-28] MEDS: amantadine HCL 100 MG CAPSULE PO ×2 (08:25→21:24)
[2022-01-28] MEDS: Sucralfate 1 GM TABLET PO ×3 (08:25→21:25)
[2022-01-28] MEDS: DULoxetine HCl 30 MG CAPSULE.DR PO (08:25)
[2022-01-28] MEDS: risperiDONE 1 MG TABLET PO ×2 (08:25→21:25)
--- NOTE | 2022-01-28 10:35 | ECG_ITS ---
Test Reason : PREOP ECT Blood Pressure : / mmHG Vent. Rate : 068 BPM Atrial Rate : 068 BPM P-R Int : 140 ms QRS Dur : 080 ms QT Int : 424 ms P-R-T Axes : 032 032 048 degrees QTc Int : 450 ms Sinus rhythm with Premature atrial complexes Otherwise normal ECG When compared with ECG of 17-DEC-2021 11:36, Premature atrial complexes are now Present Referred By: Lloyd Inman Electronically Signed By:DIOGO GANDHI
[2022-01-28 11:12] LABS: MANUAL DIFF FLAG NO
[2022-01-28 11:26] LABS: Basophils Percent Auto 0.5 % (0-2); Eosinophils Absolute Auto 0.1 X10*3/uL (0.0-0.4); Eosinophils Percent Auto 1.8 % (0-4); Hematocrit 41.8 % (42.0-52.0); Hemoglobin 13.6 g/dl (14.0-18.0); Imm Gran Abs Auto 0.02 X10*3/uL (0.00-0.03); Imm Gran Pct Auto 0.5 % (0.0-0.4); Lymphocytes Absolute Auto 0.9 X10*3/uL (1.2-4.9); Lymphocytes Percent Auto 22.6 % (20-40); Mean Corpuscular HGB Conc 32.5 g/dl (31.0-36.0); Mean Corpuscular Hemoglobin 28.1 pg (27.0-33.0); Mean Corpuscular Volume 86.4 fL (80.0-98.0); Monocytes Absolute Auto 0.3 X10*3/uL (0.1-1.2); Neutrophils Absolute Auto 2.7 x10*3/uL (2.0-8.3); Neutrophils Percent Auto 67.6 % (45-73); Red Blood Count 4.84 X10*6/uL (4.60-5.80)
[2022-01-28 11:45] LABS: Mean Platelet Volume 9.6 fL (9.4-12.4); Platelet Count 170 X10*3/uL (160-400)
[2022-01-28 12:35] LABS: Alanine Aminotransferase 7 U/L (0-40); Albumin Level 3.8 g/dL (3.5-5.0); Alkaline Phosphatase 69 U/L (39-117); Anion Gap 11 (12-20); Aspartate Amino Transferase 8 U/L (5-37); Bilirubin Total 0.3 mg/dL (0.0-1.0); Blood Urea Nitrogen 18 mg/dL (9-16); Calcium 9.3 mg/dL (8.4-10.2); Carbon Dioxide 29 mmol/L (22-29); Chloride 107 mmol/L (96-108); Creatinine Clr Calc Pharmacy 79.8; Estimated Glomerular Filt Rate > 60; Glucose Random 99 mg/dL (60-115); Potassium 4.2 mmol/L (3.3-5.1); Sodium 143 mmol/L (135-145); Total Protein 5.9 g/dL (6.5-8.0)
--- NOTE | 2022-01-28 16:25 | HO.PSYCHPN ---
Subjective Subjective Date of Service: 01/28/22 Reason For Visit: unspecified bipolar and related d/o Subjective Notes: Conditional Voluntary (HCP activation/validation) Healthcare Proxy: Yes Guardianship: No Medical Problems Affecting Mental Status: No Interim History: Met with pt and team-Zander KIM, Dr. Inman, Blayne Huang RN to discuss care plan for ECT treatment. Tentative initiation of ECT will be on 01/30/22. Pt with anergy, irritability, depression, anger, passive stance for much of the discussion. Difficult to engage with pt, not wanting to discuss plan, ask questions, talk with his (HCP). A difficult meeting for Gerry. Medication Compliance: Yes Side effects from medications: No Attending Groups: No Review of Systems Acute medical concerns: No Medical clearance for ECT ordered Medical Review of Systems: unchanged Review of Systems Reports behavioral changes, Reports confusion and Reports memory loss Psychiatric: Reports anxiety, Reports behavioral changes, Reports confusion, Reports depression, Reports difficulty concentrating, Reports hopelessness, Reports irritability, Reports anhedonia, Reports memory loss, Reports mood swings and Reports paranoia Mental Status Exam Mental Status Exam Patient Appearance: Fatigued and Disheveled Patient Orientation: Person, Place, Time and Situation Level of Consciousness: Alert Patient Behavior: Guarded, Talkative, Passive, Suspicious, Anxious, Fearful, Resistive to Care, Avoidant, Fatigued, Distractible, Isolative, Good Eye Contact and Poor Eye Contact Mood Description: Depressed and Angry Affect Description: Flat Patient Cognition Impaired: No Ability to Follow Directions: Fair Speech Pattern: Spontaneous Speech and Soft-Spoken Memory Description: Remote Impaired Hallucinations: None Delusions: Paranoid Ideation Perceptual Disturbances: Depersonalization and Derealization Thought Process: Rumination and Evasive Thought Content: positive for Obsessional Thoughts, positive for Perseveration, positive for Preoccupation, positive for Thought Blocking, positive for Evasive and positive for Hypochondriasis Depressive Symptoms: Increased Anxiety, Diff. Making Decisions, Increased Irritability, Loss of Int. in Activity, Feelings of Worthlessness, Hopelessness, Isolating-Friends/Family, Feelings of Guilt, Unhappiness, Increased Fatigue, Low Self Esteem, Loss of Energy and Difficulty Concentrating Judgement: Poor Diagnostics Vital Signs (24Hr): Vital Signs - 24 hr 01/27/22 18:00 01/28/22 06:00 Temperature 97.7 F 97.9 F Pulse Rate 86 75 Respiratory Rate 16 18 Blood Pressure 126/78 131/78 Pulse Oximetry 98 98 BMI result Body Mass Index 26.2 Labs Results: 01/28/22 11:08 01/28/22 11:08 Labs: Laboratory Results - last 48 hr 01/28/22 01/28/22 11:08 11:08 WBC 4.0 L RBC 4.84 Hgb 13.6 L Hct 41.8 L MCV 86.4 MCH 28.1 MCHC 32.5 RDW 14.0 Plt Count 170 D MPV 9.6 Immature Gran % (Auto) 0.5 H Neut % (Auto) 67.6 Lymph % (Auto) 22.6 Logan % (Auto) 7.0 Eos % (Auto) 1.8 Baso % (Auto) 0.5 Lymph # (Auto) 0.9 L Logan # (Auto) 0.3 Eos # (Auto) 0.1 Baso # (Auto) 0.0 Abs Immat Gran (auto) 0.02 Absolute Neuts (auto) 2.7 Absolute Nucleated RBC 0.000 Nucleated RBC % (auto) 0.0 Sodium 143 Potassium 4.2 Chloride 107 Carbon Dioxide 29 Anion Gap 11 L BUN 18 H Creatinine 1.12 Estim Creat Clear Calc 79.8 Estimated GFR > 60 Random Glucose 99 Calcium 9.3 Total Bilirubin 0.3 AST 8 ALT 7 Alkaline Phosphatase 69 D Total Protein 5.9 L Albumin 3.8 Imaging Radiology Impressions: ITS Impressions Foot X-Ray 11/08/21 17:32 IMPRESSION: Tiny Achilles heel spur. Otherwise unremarkable appearance of the left foot. Cervical Spine X-Ray 11/22/21 14:50 IMPRESSION: No fracture or malalignment. Mild degenerative changes. Forearm X-Ray 11/22/21 14:50 IMPRESSION: No acute fractures or malalignment within the imaged left upper extremity. Hip X-Ray 11/22/21 14:50 IMPRESSION: No acute fractures or malalignment. Humerus X-Ray 11/22/21 14:50 IMPRESSION: No acute fractures or malalignment within the imaged left upper extremity. Shoulder X-Ray 11/22/21 14:50 IMPRESSION: No acute fractures or malalignment within the imaged left upper extremity. Head CT 12/22/21 16:42 IMPRESSION: No acute intracranial pathology. Hand X-Ray 12/25/21 08:38 IMPRESSION: No soft tissue foreign body seen. Brain MRI 12/25/21 09:20 IMPRESSION: No acute intracranial findings. No acute infarcts. There is mild chronic microangiopathy. No pathologic enhancement. Lumbar Puncture Fluoroscopy 12/27/21 14:00 IMPRESSION: Successful ultrasound-guided lumbar puncture performed without immediate complications. Barium Swallow X-Ray 01/10/22 08:29 IMPRESSION: Unremarkable barium swallow in upright and supine position. Occasional secondary and tertiary peristalsis seen in mid and distal esophagus with solid foot but no obstruction.. Medications Medications Current Medications Acetaminophen (Acetaminophen 325 Mg Tablet) 650 mg PO Q6H PRN PRN Reason: Headache/Pain Mild Scale (1-3) Al Hydroxide/Mg Hydroxide (Magnesium Hydrox/Alum Hydrox 30 Ml Oral.Susp) 30 ml PO Q6H PRN PRN Reason: Heartburn/Nausea Amantadine HCl (Amantadine Hcl 100 Mg Capsule) 100 mg PO BID [facility] Last Admin: 01/28/22 08:25 Dose: 100 mg Documented by: Duloxetine HCl (Duloxetine Hcl 30 Mg Capsule.) 30 mg PO DAILY [facility] Last Admin: 01/28/22 08:25 Dose: 30 mg Documented by: Enoxaparin Sodium (Enoxaparin Sodium 40 Mg/0.4 Ml Syringe) 40 mg SUBCUT 2100 [facility] Last Admin: 12/25/21 19:24 Dose: 40 mg Documented by: Ferrous Sulfate (Ferrous Sulfate 324 Mg Tablet.) 324 mg PO BEDTIME [facility] Last Admin: 01/27/22 19:57 Dose: 324 mg Documented by: Hydroxyzine HCl (Hydroxyzine Hcl 25 Mg Tablet) 25 mg PO Q6H PRN PRN Reason: Anxiety Last Admin: 12/16/21 22:28 Dose: 25 mg Documented by: Loperamide HCl (Loperamide Hcl 2 Mg Capsule) 2 mg PO Q6H PRN PRN Reason: Diarrhea Last Admin: 11/17/21 13:40 Dose: 2 mg Documented by: Magnesium Hydroxide (Milk Of Magnesia 30 Ml Oral.Susp) 30 ml PO DAILY PRN PRN Reason: Constipation Omeprazole (Omeprazole 40 Mg Capsule.) 40 mg PO DAILY@0630 [facility] Last Admin: 01/28/22 07:25 Dose: 40 mg Documented by: Psyllium Hydrophilic Mucilloid (Psyllium Seed 3.4 Gm Powd.Pack) 3.4 gm PO BEDTIME [facility] Last Admin: 01/27/22 20:01 Dose: Not Given Documented by: Risperidone (Risperidone 1 Mg Tablet) 1 mg PO BID [facility] Last Admin: 01/28/22 08:25 Dose: 1 mg Documented by: Sucralfate (Sucralfate 1 Gm Tablet) 1 gm PO TID [facility] Last Admin: 01/28/22 14:34 Dose: 1 gm Documented by: Trazodone HCl (Trazodone Hcl 50 Mg Tablet) 50 mg PO BEDTIME PRN PRN Reason: Insomnia Allergies Allergies Allergy/AdvReac Type Severity Reaction Status Date / Time No Known Allergies Allergy Unverified 11/07/21 21:23 Assessment & Plan Assessment & Plan (1) MDD (major depressive disorder), recurrent, severe, with psychosis: Status: Acute Code(s): F33.3 - Major depressive disorder, recurrent, severe with psychotic symptoms (2) Encephalopathy chronic: Status: Acute Code(s): G93.49 - Other encephalopathy Plan Remains depressed, anergic, unable to make a clear decision/choice. HCP activated, today, pt able to give SSN for court paperwork Continue Cymbalta, Risperdal, Sertraline Work with pt, , team to move forward with plan of care- prepare for ECT Pt completed barium swallow- results negative 01/11/22 Increase Risperdal to 2 mg bid 01/12/2022 Patient seen extensively reviewed diagnosis expectation for treatment with ECT risks benefits alternatives and lack of response to medication. Also reviewed patient's medical history that there is does not appear to be any other etiology to his condition. Again reviewed ECT procedure continues to have difficulty with decision making in taking information 01/14/22 Support, educate, prepare for HCP affirmation-ECT 01/16/22 Increase Cymbalta to 60 mg daily Discontinue Sertraline 01/17/22 Decrease Cymbalta to 30 mg daily-Gerry is planning on beginning to refuse meds, will taper back slowly should he choose tapering. 01/19/22: no change to the above 01/20/22: no change 01/21/22: Anticipating court validation of HCP with increase in fear, anxiety and resulting anger. States he plans to refuse medications-dose of Cymbalta decreased to prepare to manage SE, however, pt is compliant with regime at this time. 01/23/22: Continue current plan Offer support, answer questions, address concerns, attempt to manage pt's anxiety regarding treatment 01/24/22: Court hearing 01/25/22. Offer support to pt. Continue current medications-pt has not refused his regime he reports today. 01/25/22: Discussed with team-Initial planning with Geryr and his to address negative emotions surrounding treatment and outcome so we may help Gerry move toward his recovery in a positive frame of reference. 01/26 no changes to current tx regimen 01/27 no changes to current tx regimen 01/28/22: Medical clearance for tentative ECT on 01/30/22. I spent minutes with the patient and/or on the patient floor today, greater than?50% of which was spent counseling/coordinating care. Patient educated on: therapeutic strategies Informed Consent: further education needed Reason for contiued inpatient stay Substantial Risk for: inability to function, rapid decompensation and med/psych decompensation
[2022-01-28 17:10] VITALS: BP 129/77; PULSE 71; TEMP 37.2
[2022-01-28] MEDS: Ferrous Sulfate 324 MG TABLET.DR PO (21:25)
[2022-01-29 06:00] VITALS: BP 118/76; PULSE 94; RESP 18; TEMP 36.4; O2SAT 99
[2022-01-29] MEDS: Omeprazole 40 MG CAPSULE.DR PO (06:05)
[2022-01-29] MEDS: DULoxetine HCl 30 MG CAPSULE.DR PO (08:44)
[2022-01-29] MEDS: amantadine HCL 100 MG CAPSULE PO ×2 (08:44→20:53)
[2022-01-29] MEDS: Sucralfate 1 GM TABLET PO ×3 (08:44→20:54)
[2022-01-29] MEDS: risperiDONE 1 MG TABLET PO ×2 (08:45→20:54)
[2022-01-29 09:13] LABS: Estimated Average Glucose 97 mg/dL
[2022-01-29 09:38] LABS: Cholesterol 222 mg/dL; HDL Cholesterol 29 mg/dL; LDL Cholesterol Calculated 170 mg/dl; Triglycerides 116 mg/dL
[2022-01-29 09:44] LABS: COVID-19 Test Negative (Negative); IDNOW Serial# 16C4AD1C
[2022-01-29 10:04] LABS: Reflex LDLD? No
--- NOTE | 2022-01-29 16:08 | P.PNPSI_ITS ---
Subjective Subjective Date of Service: 01/29/22 Reason For Visit: unspecified bipolar and related d/o Subjective Notes: Conditional Voluntary (HCP activation/validation) Healthcare Proxy: Yes Guardianship: No Medical Problems Affecting Mental Status: No Interim History: Attempted discussion with Gerry regarding ECT, HCP activation/validation. He presents with dysphoria, anger, sarcasm and is unwilling to process current issues. Asks for a copy of the signed HCP validation from the court-team is currently working on getting him a copy. No questions on ECT, not wanting to discuss his concerns with his , states he believes he will never go home again and will never be a part of his family again. Tw identified this as a misperception and symptom of his illness- well, it seems factual to me. Medication Compliance: Yes Side effects from medications: No Attending Groups: No Review of Systems Acute medical concerns: No ECT Medical clearance pending hospitalist assessment Medical Review of Systems: unchanged Review of Systems Reports behavioral changes, Reports confusion and Reports memory loss Psychiatric: Reports anxiety, Reports behavioral changes, Reports confusion, Reports depression, Reports difficulty concentrating, Reports hopelessness, Re ports irritability, Reports anhedonia, Reports memory loss, Reports mood swings and Reports paranoia Mental Status Exam Mental Status Exam Patient Appearance: Fatigued and Disheveled Patient Orientation: Person, Place, Time and Situation Level of Consciousness: Alert Patient Behavior: Guarded, Talkative, Passive, Suspicious, Anxious, Fearful, Resistive to Care, Avoidant, Fatigued, Distractible, Isolative, Good Eye Contact and Poor Eye Contact Mood Description: Depressed and Angry Affect Description: Flat Patient Cognition Impaired: No Ability to Follow Directions: Fair Speech Pattern: Spontaneous Speech and Soft-Spoken Memory Description: Remote Impaired Hallucinations: None Delusions: Paranoid Ideation Perceptual Disturbances: Depersonalization and Derealization Thought Process: Rumination and Evasive Thought Content: positive for Obsessional Thoughts, positive for Perseveration, positive for Preoccupation, positive for Thought Blocking, positive for Evasive and positive for Hypochondriasis Depressive Symptoms: Increased Anxiety, Diff. Making Decisions, Increased Irritability, Loss of Int. in Activity, Feelings of Worthlessness, Hopelessness, Isolating-Friends/Family, Feelings of Guilt, Unhappiness, Increased Fatigue, Low Self Esteem, Loss of Energy and Difficulty Concentrating Judgement: Poor Diagnostics Vital Signs (24Hr): Vital Signs - 24 hr 01/28/22 17:10 01/29/22 06:00 Temperature 98.9 F 97.5 F Pulse Rate 71 94 Respiratory Rate 18 Blood Pressure 129/77 118/76 Pulse Oximetry 99 BMI result Body Mass Index 26.2 Labs Results: 01/28/22 11:08 01/28/22 11:08 Labs: Laboratory Results - last 48 hr 01/28/22 01/28/22 01/29/22 11:08 11:08 08:08 WBC 4.0 L RBC 4.84 Hgb 13.6 L Hct 41.8 L MCV 86.4 MCH 28.1 MCHC 32.5 RDW 14.0 Plt Count 170 D MPV 9.6 Immature Gran % (Auto) 0.5 H Neut % (Auto) 67.6 Lymph % (Auto) 22.6 Darke % (Auto) 7.0 Eos % (Auto) 1.8 Baso % (Auto) 0.5 Lymph # (Auto) 0.9 L Darke # (Auto) 0.3 Eos # (Auto) 0.1 Baso # (Auto) 0.0 Abs Immat Gran (auto) 0.02 Absolute Neuts (auto) 2.7 Absolute Nucleated RBC 0.000 Nucleated RBC % (auto) 0.0 Sodium 143 Potassium 4.2 Chloride 107 Carbon Dioxide 29 Anion Gap 11 L BUN 18 H Creatinine 1.12 Estim Creat Clear Calc 79.8 Estimated GFR > 60 Random Glucose 99 Estimat Average Glucose 97 Hemoglobin A1c % 5.0 Calcium 9.3 Total Bilirubin 0.3 AST 8 ALT 7 Alkaline Phosphatase 69 D Total Protein 5.9 L Albumin 3.8 Triglycerides Cholesterol LDL Cholesterol, Calc HDL Cholesterol COVID-19 ([facility]) COVID-19 Clin Com 01/29/22 01/29/22 08:08 09:08 WBC RBC Hgb Hct MCV MCH MCHC RDW Plt Count MPV Immature Gran % (Auto) Neut % (Auto) Lymph % (Auto) Darke % (Auto) Eos % (Auto) Baso % (Auto) Lymph # (Auto) Darke # (Auto) Eos # (Auto) Baso # (Auto) Abs Immat Gran (auto) Absolute Neuts (auto) Absolute Nucleated RBC Nucleated RBC % (auto) Sodium Potassium Chloride Carbon Dioxide Anion Gap BUN Creatinine Estim Creat Clear Calc Estimated GFR Random Glucose Estimat Average Glucose Hemoglobin A1c % Calcium Total Bilirubin AST ALT Alkaline Phosphatase Total Protein Albumin Triglycerides 116 Cholesterol 222 D LDL Cholesterol, Calc 170 HDL Cholesterol 29 COVID-19 ([facility]) Negative COVID-19 Clin Com See Note Imaging Radiology Impressions: ITS Impressions Foot X-Ray 11/08/21 17:32 IMPRESSION: Tiny Achilles heel spur. Otherwise unremarkable appearance of the left foot. Cervical Spine X-Ray 11/22/21 14:50 IMPRESSION: No fracture or malalignment. Mild degenerative changes. Forearm X-Ray 11/22/21 14:50 IMPRESSION: No acute fractures or malalignment within the imaged left upper extremity. Hip X-Ray 11/22/21 14:50 IMPRESSION: No acute fractures or malalignment. Humerus X-Ray 11/22/21 14:50 IMPRESSION: No acute fractures or malalignment within the imaged left upper extremity. Shoulder X-Ray 11/22/21 14:50 IMPRESSION: No acute fractures or malalignment within the imaged left upper extremity. Head CT 12/22/21 16:42 IMPRESSION: No acute intracranial pathology. Hand X-Ray 12/25/21 08:38 IMPRESSION: No soft tissue foreign body seen. Brain MRI 12/25/21 09:20 IMPRESSION: No acute intracranial findings. No acute infarcts. There is mild chronic microangiopathy. No pathologic enhancement. Lumbar Puncture Fluoroscopy 12/27/21 14:00 IMPRESSION: Successful ultrasound-guided lumbar puncture performed without immediate complications. Barium Swallow X-Ray 01/10/22 08:29 IMPRESSION: Unremarkable barium swallow in upright and supine position. Occasional secondary and tertiary peristalsis seen in mid and distal esophagus with solid foot but no obstruction.. Medications Medications Current Medications Acetaminophen (Acetaminophen 325 Mg Tablet) 650 mg PO Q6H PRN PRN Reason: Headache/Pain Mild Scale (1-3) Al Hydroxide/Mg Hydroxide (Magnesium Hydrox/Alum Hydrox 30 Ml Oral.Susp) 30 ml PO Q6H PRN PRN Reason: Heartburn/Nausea Amantadine HCl (Amantadine Hcl 100 Mg Capsule) 100 mg PO BID [facility] Last Admin: 01/29/22 08:44 Dose: 100 mg Documented by: Duloxetine HCl (Duloxetine Hcl 30 Mg Capsule.Dr) 30 mg PO DAILY [facility] Last Admin: 01/29/22 08:44 Dose: 30 mg Documented by: Enoxaparin Sodium (Enoxaparin Sodium 40 Mg/0.4 Ml Syringe) 40 mg SUBCUT 2100 [facility] Last Admin: 12/25/21 19:24 Dose: 40 mg Documented by: Ferrous Sulfate (Ferrous Sulfate 324 Mg Tablet.) 324 mg PO BEDTIME [facility] Last Admin: 01/28/22 21:25 Dose: 324 mg Documented by: Hydroxyzine HCl (Hydroxyzine Hcl 25 Mg Tablet) 25 mg PO Q6H PRN PRN Reason: Anxiety Last Admin: 12/16/21 22:28 Dose: 25 mg Documented by: Loperamide HCl (Loperamide Hcl 2 Mg Capsule) 2 mg PO Q6H PRN PRN Reason: Diarrhea Last Admin: 11/17/21 13:40 Dose: 2 mg Documented by: Magnesium Hydroxide (Milk Of Magnesia 30 Ml Oral.Susp) 30 ml PO DAILY PRN PRN Reason: Constipation Omeprazole (Omeprazole 40 Mg Capsule.) 40 mg PO DAILY@0630 [facility] Last Admin: 01/29/22 06:05 Dose: 40 mg Documented by: Psyllium Hydrophilic Mucilloid (Psyllium Seed 3.4 Gm Powd.Pack) 3.4 gm PO BEDTIME [facility] Last Admin: 01/28/22 21:27 Dose: Not Given Documented by: Risperidone (Risperidone 1 Mg Tablet) 1 mg PO BID [facility] Last Admin: 01/29/22 08:45 Dose: 1 mg Documented by: Sucralfate (Sucralfate 1 Gm Tablet) 1 gm PO TID [facility] Last Admin: 01/29/22 14:47 Dose: 1 gm Documented by: Trazodone HCl (Trazodone Hcl 50 Mg Tablet) 50 mg PO BEDTIME PRN PRN Reason: Insomnia Allergies Allergies Allergy/AdvReac Type Severity Reaction Status Date / Time No Known Allergies Allergy Unverified 11/07/21 21:23 Assessment & Plan Assessment & Plan (1) MDD (major depressive disorder), recurrent, severe, with psychosis: Status: Acute Code(s): F33.3 - Major depressive disorder, recurrent, severe with psychotic symptoms (2) Encephalopathy chronic: Status: Acute Code(s): G93.49 - Other encephalopathy Plan Remains depressed, anergic, unable to make a clear decision/choice. HCP activated, today, pt able to give SSN for court paperwork Continue Cymbalta, Risperdal, Sertraline Work with pt, , team to move forward with plan of care- prepare for ECT Pt completed barium swallow- results negative 01/11/22 Increase Risperdal to 2 mg bid 01/12/2022 Patient seen extensively reviewed diagnosis expectation for treatment with ECT risks benefits alternatives and lack of response to medication. Also reviewed patient's medical history that there is does not appear to be any other etiology to his condition. Again reviewed ECT procedure continues to have difficulty with decision making in taking information 01/14/22 Support, educate, prepare for HCP affirmation-ECT 01/16/22 Increase Cymbalta to 60 mg daily Discontinue Sertraline 01/17/22 Decrease Cymbalta to 30 mg daily-Gerry is planning on beginning to refuse meds, will taper back slowly should he choose tapering. 01/19/22: no change to the above 01/20/22: no change 01/21/22: Anticipating court validation of HCP with increase in fear, anxiety and resulting anger. States he plans to refuse medications-dose of Cymbalta decreased to prepare to manage SE, however, pt is compliant with regime at this time. 01/23/22: Continue current plan Offer support, answer questions, address concerns, attempt to manage pt's anxiet y regarding treatment 01/24/22: Court hearing 01/25/22. Offer support to pt. Continue current medications-pt has not refused his regime he reports today. 01/25/22: Discussed with team-Initial planning with Gerry and his to address negative emotions surrounding treatment and outcome so we may help Gerry move toward his recovery in a positive frame of reference. 01/26 no changes to current tx regimen 01/27 no changes to current tx regimen 01/28/22: Medical clearance for tentative ECT on 01/30/22. 01/29/22: Prepare for ECT on 01/30/22. Today, pt continues to decline further education and support I spent minutes with the patient and/or on the patient floor today, iesha ter than?50% of which was spent counseling/coordinating care. Patient educated on: diagnosis and therapeutic strategies Informed Consent: further education needed Reason for contiued inpatient stay Substantial Risk for: inability to function and rapid decompensation
--- NOTE | 2022-01-29 16:15 | HO.PM.IMPN ---
Subjective Subjective Date of Service: 01/29/22 Interval History: Patient seen examined for ECT clearance, patient awake alert offers no acute complaints, denies chest pain, no palpitations, no shortness of breath, no PND, no orthopnea no prior history of CHF or coronary artery disease denies epigastric pain, complaining of constipation had a small bowel movement today, last bowel movement 3 days ago, denies nausea vomiting, denies recent head trauma lightheadedness dizziness. Review of Systems Review of Systems: Yes all other systems are reviewed and are negative Physical Exam Vital Signs: Vital Signs: Last Vital Signs Temp 97.5 F 01/29/22 06:00 Pulse 94 01/29/22 06:00 Resp 18 01/29/22 06:00 BP 118/76 01/29/22 06:00 Pulse Ox 99 01/29/22 06:00 BMI result Body Mass Index 26.2 Const: Other: General resting comfortably in no acute distress. Neck no JVD. CVS regular rate rhythm, no edema Respiratory lungs clear to auscultation, no respiratory distress, no wheeze, no rhonchi. Gastrointestinal abdomen soft, nontender, bowel sounds audible Extremities no swelling Neuro nonfocal , speech clear cranial nerve 2-12 intact Skin no rash Musculoskeletal no deformity Objective Data Active Medications Acetaminophen (Acetaminophen 325 Mg Tablet) 650 mg PO Q6H PRN PRN Reason: Headache/Pain Mild Scale (1-3) Al Hydroxide/Mg Hydroxide (Magnesium Hydrox/Alum Hydrox 30 Ml Oral.Susp) 30 ml PO Q6H PRN PRN Reason: Heartburn/Nausea Amantadine HCl (Amantadine Hcl 100 Mg Capsule) 100 mg PO BID [facility] Last Admin: 01/29/22 08:44 Dose: 100 mg Documented by: ARTURO Duloxetine HCl (Duloxetine Hcl 30 Mg Capsule.) 30 mg PO DAILY [facility] Last Admin: 01/29/22 08:44 Dose: 30 mg Documented by: ARTURO Enoxaparin Sodium (Enoxaparin Sodium 40 Mg/0.4 Ml Syringe) 40 mg SUBCUT 2100 [facility] Last Admin: 12/25/21 19:24 Dose: 40 mg Documented by: DEVORAH Ferrous Sulfate (Ferrous Sulfate 324 Mg Tablet.) 324 mg PO BEDTIME [facility] Last Admin: 01/28/22 21:25 Dose: 324 mg Documented by: HEVER Hydroxyzine HCl (Hydroxyzine Hcl 25 Mg Tablet) 25 mg PO Q6H PRN PRN Reason: Anxiety Last Admin: 12/16/21 22:28 Dose: 25 mg Documented by: MARJORIE Loperamide HCl (Loperamide Hcl 2 Mg Capsule) 2 mg PO Q6H PRN PRN Reason: Diarrhea Last Admin: 11/17/21 13:40 Dose: 2 mg Documented by: ARTURO Magnesium Hydroxide (Milk Of Magnesia 30 Ml Oral.Susp) 30 ml PO DAILY PRN PRN Reason: Constipation Omeprazole (Omeprazole 40 Mg Capsule.Dr) 40 mg PO DAILY@0630 [facility] Last Admin: 01/29/22 06:05 Dose: 40 mg Documented by: MUSGRPARRISH Psyllium Hydrophilic Mucilloid (Psyllium Seed 3.4 Gm Powd.Pack) 3.4 gm PO BEDTIME [facility] Last Admin: 01/28/22 21:27 Dose: Not Given Documented by: HEVER Non-Admin Reason: Patient Refused Risperidone (Risperidone 1 Mg Tablet) 1 mg PO BID [facility] Last Admin: 01/29/22 08:45 Dose: 1 mg Documented by: ARTURO Sucralfate (Sucralfate 1 Gm Tablet) 1 gm PO TID [facility] Last Admin: 01/29/22 14:47 Dose: 1 gm Documented by: ARTURO Trazodone HCl (Trazodone Hcl 50 Mg Tablet) 50 mg PO BEDTIME PRN PRN Reason: Insomnia Labs CBC & Chem 7: 01/28/22 11:08 01/28/22 11:08 Labs: Laboratory Results - last 24 hr 01/29/22 01/29/22 01/29/22 08:08 08:08 09:08 Estimat Average Glucose 97 Hemoglobin A1c % 5.0 Triglycerides 116 Cholesterol 222 D LDL Cholesterol, Calc 170 HDL Cholesterol 29 COVID-19 ([facility]) Negative COVID-19 Clin Com See Note Assessment and Plan (1) MDD (major depressive disorder), recurrent, severe, with psychosis: Status: Acute (2) Pre-op exam: Status: Acute (3) Constipation: Status: Acute Plan ?56 yo M with a PMH of HTN, recent bacteremia due to L index finger abscess after injury who is admitted to the inpatient psych unit and being treated for major depressive disorder, severe with psychotic symptoms since patient remains depressed, anergic with lack of response to medical management patient has been scheduled to undergo ECT treatment and hence this consult for ECT clearance ECT clearance At present patient has no cardiac symptoms, has no recent head injury trauma or surgery, EKG showed no arrhythmia or ischemic changes, electrolytes are stable There is no medical contraindication for ECT at this time, no further testing indicated. Constipation likely related to psych medications including risperidone all and amantadine will place patient on MiraLax daily and give 1 dose of milk of Mag today. DVT prophylaxis on Lovenox Quality Stroke Does the patient have a stroke diagnosis?: No VTE Prior VTE?: No VTE Risk Level:: Medical - moderate - high VTE Device Contraindication: Treatment Not Indicated VTE Drug Contraindication: N/A - Med Ordered
[2022-01-29] MEDS: Milk of Magnesia 30 ML ORAL.SUSP PO (16:54)
[2022-01-29] MEDS: polyethylene glycoL 3350 17 GM POWD.PACK PO (16:55)
[2022-01-29 17:00] VITALS: BP 136/84; PULSE 88; TEMP 37
[2022-01-29] MEDS: Ferrous Sulfate 324 MG TABLET.DR PO (20:54)
[2022-01-30] VITALS (12 sets, daily range): BP systolic 109–151; BP diastolic 68–96; PULSE 72–124; RESP 16–20; TEMP 36.2–37.2; O2SAT 92–100
--- NOTE | 2022-01-30 07:52 | P.CONAN_ITS ---
[facility] Active Problems Active Problems: All Active Problems (Updated 01/29/22 @ 16:28 by Ethan Guidry MD) Constipation (Acute) Pre-op exam (Acute) Encephalopathy chronic (Acute) Paronychia of finger of left hand (Acute) MDD (major depressive disorder), recurrent, severe, with psychosis (Acute) Routine medical exam (Acute) Past Medical History Medical History (Updated 01/29/22 @ 16:28 by Ethan Guidry MD) Gram-negative bacteremia Family History Family history of problems with anesthesia: No Surgical History History of Problems with Anesthesia: No Social History Social History Household Members: Spouse and Children Household Members Other:: and Three Children ages 11, 13, 15 Housing: House Do you presently have visiting nurse or other home services: No Patient Tobacco Use Status: Never used Tobacco Use of substances other than those prescribed or required for medical reasons: No Currently Displaying Signs/Symptoms of Drug Intoxication Withdrawal: No Have you been hit, kicked, punched, or otherwise hurt by someone within the past year? If so, by whom?: No Do you feel safe in your current relationship?: Yes Is there a partner from a previous relationship who is making you feel unsafe now?: No Are you made to feel afraid or neglected: No Advance Directives: No Advance Directives Information Provided: No Do you have thoughts of harming others: None Do you have a plan to hurt others: No Plan Recently lost weight without trying: No Eating poorly because of decreased appetite: No Nutrition Risks: No Nutritional Risk Poor oral hygiene: No service: No ([employer] [id number]'s) Sexual orientation: Straight/Heterosexual Meds Allergies Allergy/AdvReac Type Severity Reaction Status Date / Time No Known Allergies Allergy Unverified 11/07/21 21:23 Active Medications: Current Medications Acetaminophen (Acetaminophen 325 Mg Tablet) 650 mg PO Q6H PRN PRN Reason: Headache/Pain Mild Scale (1-3) Al Hydroxide/Mg Hydroxide (Magnesium Hydrox/Alum Hydrox 30 Ml Oral.Susp) 30 ml PO Q6H PRN PRN Reason: Heartburn/Nausea Amantadine HCl (Amantadine Hcl 100 Mg Capsule) 100 mg PO BID [facility] Last Admin: 01/29/22 20:53 Dose: 100 mg Documented by: Duloxetine HCl (Duloxetine Hcl 30 Mg Capsule.Dr) 30 mg PO DAILY [facility] Last Admin: 01/29/22 08:44 Dose: 30 mg Documented by: Enoxaparin Sodium (Enoxaparin Sodium 40 Mg/0.4 Ml Syringe) 40 mg SUBCUT 2100 [facility] Last Admin: 12/25/21 19:24 Dose: 40 mg Documented by: Ferrous Sulfate (Ferrous Sulfate 324 Mg Tablet.) 324 mg PO BEDTIME [facility] Last Admin: 01/29/22 20:54 Dose: 324 mg Documented by: Hydroxyzine HCl (Hydroxyzine Hcl 25 Mg Tablet) 25 mg PO Q6H PRN PRN Reason: Anxiety Last Admin: 12/16/21 22:28 Dose: 25 mg Documented by: Loperamide HCl (Loperamide Hcl 2 Mg Capsule) 2 mg PO Q6H PRN PRN Reason: Diarrhea Last Admin: 11/17/21 13:40 Dose: 2 mg Documented by: Magnesium Hydroxide (Milk Of Magnesia 30 Ml Oral.Susp) 30 ml PO DAILY PRN PRN Reason: Constipation Omeprazole (Omeprazole 40 Mg Capsule.) 40 mg PO DAILY@0630 [facility] Last Admin: 01/30/22 07:14 Dose: Not Given Documented by: Polyethylene Glycol (Polyethylene Glycol 3350 17 Gm Powd.Pack) 17 gm PO DAILY [facility] Last Admin: 01/29/22 16:55 Dose: 17 gm Documented by: Psyllium Hydrophilic Mucilloid (Psyllium Seed 3.4 Gm Powd.Pack) 3.4 gm PO BEDTIME [facility] Last Admin: 01/29/22 20:56 Dose: Not Given Documented by: Risperidone (Risperidone 1 Mg Tablet) 1 mg PO BID [facility] Last Admin: 01/29/22 20:54 Dose: 1 mg Documented by: Sucralfate (Sucralfate 1 Gm Tablet) 1 gm PO TID [facility] Last Admin: 01/29/22 20:54 Dose: 1 gm Documented by: Trazodone HCl (Trazodone Hcl 50 Mg Tablet) 50 mg PO BEDTIME PRN PRN Reason: Insomnia Home Medications Medication Instructions Recorded Confirmed Last Taken Type acetaminophen 500 mg tablet 500 mg PO Q6-8H PRN 12/13/21 12/13/21 Unknown History (Acetaminophen Extra Strength) Exam Exam Date and Time: January 30, 2022 0752 Height,Weight and Vital Signs: Height 6 ft Weight 87.8 kg Last Vital Signs Temp 97.9 F 01/30/22 06:34 Pulse 72 01/30/22 06:34 Resp 20 01/30/22 06:34 BP 131/95 H 01/30/22 06:34 Pulse Ox 100 01/30/22 06:34 Pertinent Lab Results Pertinent Lab Results: Laboratory Tests 11/08/21 11/08/21 11/08/21 08:30 08:30 08:30 WBC RBC Hgb Hct MCV MCH MCHC RDW Plt Count MPV Immature Gran % (Auto) Neut % (Auto) Lymph % (Auto) [place] % (Auto) Eos % (Auto) Baso % (Auto) Lymph # (Auto) [place] # (Auto) Eos # (Auto) Baso # (Auto) Abs Immat Gran (auto) Absolute Neuts (auto) Absolute Nucleated RBC Nucleated RBC % (auto) ESR PT INR APTT D-Dimer High Sensitivty Sodium 142 Potassium 4.0 Chloride 103 Carbon Dioxide 32 H Anion Gap 11 L BUN 18 H Creatinine 1.13 Estim Creat Clear Calc TNP Estimated GFR > 60 Random Glucose Fasting Glucose 101 H Estimat Average Glucose 103 Hemoglobin A1c % 5.2 Uric Acid Calcium 9.5 Magnesium 2.4 Total Bilirubin 1.1 H AST 16 ALT 33 Alkaline Phosphatase 63 Ammonia Total Creatine Kinase C-Reactive Protein Total Protein 6.1 L Albumin 4.1 Ceruloplasmin Triglycerides 117 Cholesterol 142 LDL Cholesterol, Calc 91 HDL Cholesterol 28 Vitamin B12 619 Folate 7.0 TSH 1.84 Free T4 1.10 Total Testosterone Fr Testosterone Dialys Random Cortisol Urine Color Urine Appearance Urine pH Ur Specific [place] Urine Protein Urine Glucose (UA) Urine Ketones Urine Blood Urine Nitrite Ur Leukocyte Esterase CSF Tube Number CSF Volume CSF Appearance CSF Color CSF WBC CSF RBC CSF Lymphocytes CSF Appearance (b) CSF Glucose CSF Total Protein CSF Lyme IgG (Immblot) CSF Lyme IgG Bands Det CSF Lyme IgM (Immblot) CSF Lyme IgM Bands Det CSF C.neoform/gat PCR CSF CMV DNA (PCR) CSF Enterovirus (PCR) CSF E. coli K1 (PCR) CSF H. influenzae (PCR) CSF HSV I (PCR) CSF HSV II (PCR) CSF L.monocytogenes PCR CSF N. meningitidis PCR CSF Parechovirus (PCR) CSF S. agalactiae (PCR) CSF S. pneumoniae (PCR) CSF VZV (PCR) Ur Arsenic 24 Hour Urine Cadmium 24 Hour Serum Copper Ur Total Volume Ur Copper 24 Hr Urine Lead 24 Hour Urine Mercury 24 Hour Zinc Rheumatoid Factor TRENT Screen TRENT Titer TRENT Titer 2 TRENT Titer 3 TRENT Pattern TRENT Pattern 2 TRENT Pattern 3 Anti-ds DNA Titer (Crith) Anti-ds DNA (Crithidia) T.pallidum Ab (EIA) Lyme Screen IgG & IgM Lyme Progressive Test COVID-19 ([facility]) COVID-19 Clin Com HIV 1&2 Ab/P24 Ag 4thGn HHV-6 (PCR) Ref Lab Test Result 11/08/21 11/08/21 11/19/21 08:30 08:30 13:21 WBC 6.8 4.6 L RBC 4.71 4.53 L Hgb 13.7 L 13.0 L Hct 40.8 L 38.8 L MCV 86.6 85.7 MCH 29.1 28.7 MCHC 33.6 33.5 RDW 14.4 14.1 Plt Count 239 199 MPV 9.5 9.6 Immature Gran % (Auto) 0.1 0.2 Neut % (Auto) 64.8 73.1 H Lymph % (Auto) 21.7 16.7 L [place] % (Auto) 9.5 7.2 Eos % (Auto) 3.5 2.4 Baso % (Auto) 0.4 0.4 Lymph # (Auto) 1.5 0.8 L [place] # (Auto) 0.7 0.3 Eos # (Auto) 0.2 0.1 Baso # (Auto) 0.0 0.0 Abs Immat Gran (auto) 0.01 0.01 Absolute Neuts (auto) 4.4 3.3 Absolute Nucleated RBC 0.000 0.000 Nucleated RBC % (auto) 0.0 0.0 ESR PT INR APTT D-Dimer High Sensitivty 165 Sodium Potassium Chloride Carbon Dioxide Anion Gap BUN Creatinine Estim Creat Clear Calc Estimated GFR Random Glucose Fasting Glucose Estimat Average Glucose Hemoglobin A1c % Uric Acid Calcium Magnesium Total Bilirubin AST ALT Alkaline Phosphatase Ammonia Total Creatine Kinase C-Reactive Protein Total Protein Albumin Ceruloplasmin Triglycerides Cholesterol LDL Cholesterol, Calc HDL Cholesterol Vitamin B12 Folate TSH Free T4 Total Testosterone Fr Testosterone Dialys Random Cortisol Urine Color Urine Appearance Urine pH Ur Specific [place] Urine Protein Urine Glucose (UA) Urine Ketones Urine Blood Urine Nitrite Ur Leukocyte Esterase CSF Tube Number CSF Volume CSF Appearance CSF Color CSF WBC CSF RBC CSF Lymphocytes CSF Appearance (b) CSF Glucose CSF Total Protein CSF Lyme IgG (Immblot) CSF Lyme IgG Bands Det CSF Lyme IgM (Immblot) CSF Lyme IgM Bands Det CSF C.neoform/gat PCR CSF CMV DNA (PCR) CSF Enterovirus (PCR) CSF E. coli K1 (PCR) CSF H. influenzae (PCR) CSF HSV I (PCR) CSF HSV II (PCR) CSF L.monocytogenes PCR CSF N. meningitidis PCR CSF Parechovirus (PCR) CSF S. agalactiae (PCR) CSF S. pneumoniae (PCR) CSF VZV (PCR) Ur Arsenic 24 Hour Urine Cadmium 24 Hour Serum Copper Ur Total Volume Ur Copper 24 Hr Urine Lead 24 Hour Urine Mercury 24 Hour Zinc Rheumatoid Factor TRENT Screen TRENT Titer TRENT Titer 2 TRENT Titer 3 TRENT Pattern TRENT Pattern 2 TRENT Pattern 3 Anti-ds DNA Titer (Crith) Anti-ds DNA (Crithidia) T.pallidum Ab (EIA) Lyme Screen IgG & IgM Lyme Progressive Test COVID-19 ([facility]) COVID-19 Clin Com HIV 1&2 Ab/P24 Ag 4thGn HHV-6 (PCR) Ref Lab Test Result 11/19/21 11/22/21 12/14/21 13:21 07:54 08:22 WBC 5.4 RBC 4.27 L Hgb 12.5 L Hct 37.2 L MCV 87.1 MCH 29.3 MCHC 33.6 RDW 14.6 Plt Count 223 MPV 8.6 L Immature Gran % (Auto) 0.4 Neut % (Auto) 73.7 H Lymph % (Auto) 15.1 L [place] % (Auto) 7.6 Eos % (Auto) 2.6 Baso % (Auto) 0.6 Lymph # (Auto) 0.8 L [place] # (Auto) 0.4 Eos # (Auto) 0.1 Baso # (Auto) 0.0 Abs Immat Gran (auto) 0.02 Absolute Neuts (auto) 4.0 Absolute Nucleated RBC 0.000 Nucleated RBC % (auto) 0.0 ESR PT INR APTT D-Dimer High Sensitivty Sodium 140 139 Potassium 4.1 3.7 Chloride 103 101 Carbon Dioxide 27 32 H Anion Gap 14 10 L BUN 13 18 H Creatinine 1.00 1.11 Estim Creat Clear Calc 89.4 80.5 Estimated GFR > 60 > 60 Random Glucose 91 91 Fasting Glucose Estimat Average Glucose Hemoglobin A1c % Uric Acid Calcium 9.3 9.0 Magnesium Total Bilirubin 0.6 AST 16 ALT 22 Alkaline Phosphatase 59 Ammonia Total Creatine Kinase C-Reactive Protein Total Protein 5.8 L Albumin 3.8 Ceruloplasmin Triglycerides Cholesterol LDL Cholesterol, Calc HDL Cholesterol Vitamin B12 Folate TSH Free T4 Total Testosterone Fr Testosterone Dialys Random Cortisol Urine Color Urine Appearance Urine pH Ur Specific [place] Urine Protein Urine Glucose (UA) Urine Ketones Urine Blood Urine Nitrite Ur Leukocyte Esterase CSF Tube Number CSF Volume CSF Appearance CSF Color CSF WBC CSF RBC CSF Lymphocytes CSF Appearance (b) CSF Glucose CSF Total Protein CSF Lyme IgG (Immblot) CSF Lyme IgG Bands Det CSF Lyme IgM (Immblot) CSF Lyme IgM Bands Det CSF C.neoform/gat PCR CSF CMV DNA (PCR) CSF Enterovirus (PCR) CSF E. coli K1 (PCR) CSF H. influenzae (PCR) CSF HSV I (PCR) CSF HSV II (PCR) CSF L.monocytogenes PCR CSF N. meningitidis PCR CSF Parechovirus (PCR) CSF S. agalactiae (PCR) CSF S. pneumoniae (PCR) CSF VZV (PCR) Ur Arsenic 24 Hour Urine Cadmium 24 Hour Serum Copper Ur Total Volume Ur Copper 24 Hr Urine Lead 24 Hour Urine Mercury 24 Hour Zinc Rheumatoid Factor TRENT Screen TRENT Titer TRENT Titer 2 TRENT Titer 3 TRENT Pattern TRENT Pattern 2 TRENT Pattern 3 Anti-ds DNA Titer (Crith) Anti-ds DNA (Crithidia) T.pallidum Ab (EIA) Lyme Screen IgG & IgM Lyme Progressive Test COVID-19 ([facility]) COVID-19 Clin Com HIV 1&2 Ab/P24 Ag 4thGn HHV-6 (PCR) Ref Lab Test Result 12/14/21 12/14/21 12/17/21 08:22 08:23 08:32 WBC RBC Hgb Hct MCV MCH MCHC RDW Plt Count MPV Immature Gran % (Auto) Neut % (Auto) Lymph % (Auto) [place] % (Auto) Eos % (Auto) Baso % (Auto) Lymph # (Auto) [place] # (Auto) Eos # (Auto) Baso # (Auto) Abs Immat Gran (auto) Absolute Neuts (auto) Absolute Nucleated RBC Nucleated RBC % (auto) ESR 9 PT INR APTT D-Dimer High Sensitivty Sodium 137 Potassium 4.5 D Chloride 101 Carbon Dioxide 29 Anion Gap 12 BUN 12 Creatinine 0.94 Estim Creat Clear Calc 104.9 Estimated GFR > 60 Random Glucose 93 Fasting Glucose Estimat Average Glucose Hemoglobin A1c % Uric Acid Calcium 9.2 Magnesium Total Bilirubin 0.4 AST 13 ALT 21 Alkaline Phosphatase 74 D Ammonia Total Creatine Kinase C-Reactive Protein Total Protein 5.9 L Albumin 3.8 Ceruloplasmin Triglycerides Cholesterol LDL Cholesterol, Calc HDL Cholesterol Vitamin B12 377 Folate 7.6 TSH 1.80 Free T4 Total Testosterone Fr Testosterone Dialys Random Cortisol Urine Color Urine Appearance Urine pH Ur Specific [place] Urine Protein Urine Glucose (UA) Urine Ketones Urine Blood Urine Nitrite Ur Leukocyte Esterase CSF Tube Number CSF Volume CSF Appearance CSF Color CSF WBC CSF RBC CSF Lymphocytes CSF Appearance (b) CSF Glucose CSF Total Protein CSF Lyme IgG (Immblot) CSF Lyme IgG Bands Det CSF Lyme IgM (Immblot) CSF Lyme IgM Bands Det CSF C.neoform/gat PCR CSF CMV DNA (PCR) CSF Enterovirus (PCR) CSF E. coli K1 (PCR) CSF H. influenzae (PCR) CSF HSV I (PCR) CSF HSV II (PCR) CSF L.monocytogenes PCR CSF N. meningitidis PCR CSF Parechovirus (PCR) CSF S. agalactiae (PCR) CSF S. pneumoniae (PCR) CSF VZV (PCR) Ur Arsenic 24 Hour Urine Cadmium 24 Hour Serum Copper Ur Total Volume Ur Copper 24 Hr Urine Lead 24 Hour Urine Mercury 24 Hour Zinc Rheumatoid Factor TRENT Screen TRENT Titer TRENT Titer 2 TRENT Titer 3 TRENT Pattern TRENT Pattern 2 TRENT Pattern 3 Anti-ds DNA Titer (Crith) Anti-ds DNA (Crithidia) T.pallidum Ab (EIA) Lyme Screen IgG & IgM Lyme Progressive Test COVID-19 ([facility]) COVID-19 Clin Com HIV 1&2 Ab/P24 Ag 4thGn HHV-6 (PCR) Ref Lab Test Result 12/17/21 12/17/21 12/17/21 08:32 08:32 08:32 WBC RBC Hgb Hct MCV MCH MCHC RDW Plt Count MPV Immature Gran % (Auto) Neut % (Auto) Lymph % (Auto) [place] % (Auto) Eos % (Auto) Baso % (Auto) Lymph # (Auto) [place] # (Auto) Eos # (Auto) Baso # (Auto) Abs Immat Gran (auto) Absolute Neuts (auto) Absolute Nucleated RBC Nucleated RBC % (auto) ESR PT INR APTT D-Dimer High Sensitivty Sodium Potassium Chloride Carbon Dioxide Anion Gap BUN Creatinine Estim Creat Clear Calc Estimated GFR Random Glucose Fasting Glucose Estimat Average Glucose Hemoglobin A1c % Uric Acid Calcium Magnesium Total Bilirubin AST ALT Alkaline Phosphatase Ammonia Total Creatine Kinase C-Reactive Protein 2.10 H Total Protein Albumin Ceruloplasmin Triglycerides Cholesterol LDL Cholesterol, Calc HDL Cholesterol Vitamin B12 Folate TSH Free T4 Total Testosterone Fr Testosterone Dialys Random Cortisol Urine Color Urine Appearance Urine pH Ur Specific [place] Urine Protein Urine Glucose (UA) Urine Ketones Urine Blood Urine Nitrite Ur Leukocyte Esterase CSF Tube Number CSF Volume CSF Appearance CSF Color CSF WBC CSF RBC CSF Lymphocytes CSF Appearance (b) CSF Glucose CSF Total Protein CSF Lyme IgG (Immblot) CSF Lyme IgG Bands Det CSF Lyme IgM (Immblot) CSF Lyme IgM Bands Det CSF C.neoform/gat PCR CSF CMV DNA (PCR) CSF Enterovirus (PCR) CSF E. coli K1 (PCR) CSF H. influenzae (PCR) CSF HSV I (PCR) CSF HSV II (PCR) CSF L.monocytogenes PCR CSF N. meningitidis PCR CSF Parechovirus (PCR) CSF S. agalactiae (PCR) CSF S. pneumoniae (PCR) CSF VZV (PCR) Ur Arsenic 24 Hour Urine Cadmium 24 Hour Serum Copper Ur Total Volume Ur Copper 24 Hr Urine Lead 24 Hour Urine Mercury 24 Hour Zinc Rheumatoid Factor TRENT Screen NEGATIVE RTENT Titer TNP TRENT Titer 2 TNP TRENT Titer 3 TNP TRENT Pattern TNP TRENT Pattern 2 TNP TRENT Pattern 3 TNP Anti-ds DNA Titer (Crith) Anti-ds DNA (Crithidia) T.pallidum Ab (EIA) Nonreactive Lyme Screen IgG & IgM Lyme Progressive Test COVID-19 ([facility]) COVID-19 Clin Com HIV 1&2 Ab/P24 Ag 4thGn HHV-6 (PCR) Ref Lab Test Result 12/17/21 12/17/21 12/22/21 08:32 08:32 14:57 WBC 6.8 RBC 4.29 L Hgb 12.6 L Hct 37.5 L MCV 87.4 MCH 29.4 MCHC 33.6 RDW 14.0 Plt Count 274 MPV 8.7 L Immature Gran % (Auto) 0.4 Neut % (Auto) 74.9 H Lymph % (Auto) 14.5 L [place] % (Auto) 8.5 Eos % (Auto) 1.3 Baso % (Auto) 0.4 Lymph # (Auto) 1.0 L [place] # (Auto) 0.6 Eos # (Auto) 0.1 Baso # (Auto) 0.0 Abs Immat Gran (auto) 0.03 Absolute Neuts (auto) 5.1 Absolute Nucleated RBC 0.000 Nucleated RBC % (auto) 0.0 ESR PT INR APTT D-Dimer High Sensitivty Sodium Potassium Chloride Carbon Dioxide Anion Gap BUN Creatinine Estim Creat Clear Calc Estimated GFR Random Glucose Fasting Glucose Estimat Average Glucose Hemoglobin A1c % Uric Acid Calcium Magnesium Total Bilirubin AST ALT Alkaline Phosphatase Ammonia Total Creatine Kinase C-Reactive Protein Total Protein Albumin Ceruloplasmin Triglycerides Cholesterol LDL Cholesterol, Calc HDL Cholesterol Vitamin B12 Folate TSH Free T4 Total Testosterone 474 Fr Testosterone Dialys 38.4 Random Cortisol Urine Color Urine Appearance Urine pH Ur Specific [place] Urine Protein Urine Glucose (UA) Urine Ketones Urine Blood Urine Nitrite Ur Leukocyte Esterase CSF Tube Number CSF Volume CSF Appearance CSF Color CSF WBC CSF RBC CSF Lymphocytes CSF Appearance (b) CSF Glucose CSF Total Protein CSF Lyme IgG (Immblot) CSF Lyme IgG Bands Det CSF Lyme IgM (Immblot) CSF Lyme IgM Bands Det CSF C.neoform/gat PCR CSF CMV DNA (PCR) CSF Enterovirus (PCR) CSF E. coli K1 (PCR) CSF H. influenzae (PCR) CSF HSV I (PCR) CSF HSV II (PCR) CSF L.monocytogenes PCR CSF N. meningitidis PCR CSF Parechovirus (PCR) CSF S. agalactiae (PCR) CSF S. pneumoniae (PCR) CSF VZV (PCR) Ur Arsenic 24 Hour Urine Cadmium 24 Hour Serum Copper Ur Total Volume Ur Copper 24 Hr Urine Lead 24 Hour Urine Mercury 24 Hour Zinc Rheumatoid Factor TRENT Screen TRENT Titer TRENT Titer 2 TRENT Titer 3 TRENT Pattern TRENT Pattern 2 TRENT Pattern 3 Anti-ds DNA Titer (Crith) Anti-ds DNA (Crithidia) T.pallidum Ab (EIA) Lyme Screen IgG & IgM Lyme Progressive Test COVID-19 ([facility]) COVID-19 Clin Com HIV 1&2 Ab/P24 Ag 4thGn Nonreactive HHV-6 (PCR) Ref Lab Test Result 12/22/21 12/22/21 12/25/21 14:57 18:18 08:08 WBC RBC Hgb Hct MCV MCH MCHC RDW Plt Count MPV Immature Gran % (Auto) Neut % (Auto) Lymph % (Auto) [place] % (Auto) Eos % (Auto) Baso % (Auto) Lymph # (Auto) [place] # (Auto) Eos # (Auto) Baso # (Auto) Abs Immat Gran (auto) Absolute Neuts (auto) Absolute Nucleated RBC Nucleated RBC % (auto) ESR PT INR APTT D-Dimer High Sensitivty Sodium 135 Potassium 4.0 Chloride 98 Carbon Dioxide 30 H Anion Gap 11 L BUN 14 Creatinine 0.98 Estim Creat Clear Calc 100.6 Estimated GFR > 60 Random Glucose 114 Fasting Glucose Estimat Average Glucose Hemoglobin A1c % Uric Acid 4.2 Calcium 9.4 Magnesium Total Bilirubin 0.4 AST 13 ALT 24 Alkaline Phosphatase 91 D Ammonia Total Creatine Kinase C-Reactive Protein Total Protein 6.1 L Albumin 4.1 Ceruloplasmin Triglycerides Cholesterol LDL Cholesterol, Calc HDL Cholesterol Vitamin B12 Folate TSH Free T4 Total Testosterone Fr Testosterone Dialys Random Cortisol Urine Color YELLOW Urine Appearance CLEAR Urine pH 7.0 Ur Specific [place] 1.015 Urine Protein NEG Urine Glucose (UA) NEG Urine Ketones NEG Urine Blood NEG Urine Nitrite NEG Ur Leukocyte Esterase NEG CSF Tube Number CSF Volume CSF Appearance CSF Color CSF WBC CSF RBC CSF Lymphocytes CSF Appearance (b) CSF Glucose CSF Total Protein CSF Lyme IgG (Immblot) CSF Lyme IgG Bands Det CSF Lyme IgM (Immblot) CSF Lyme IgM Bands Det CSF C.neoform/gat PCR CSF CMV DNA (PCR) CSF Enterovirus (PCR) CSF E. coli K1 (PCR) CSF H. influenzae (PCR) CSF HSV I (PCR) CSF HSV II (PCR) CSF L.monocytogenes PCR CSF N. meningitidis PCR CSF Parechovirus (PCR) CSF S. agalactiae (PCR) CSF S. pneumoniae (PCR) CSF VZV (PCR) Ur Arsenic 24 Hour Urine Cadmium 24 Hour Serum Copper Ur Total Volume Ur Copper 24 Hr Urine Lead 24 Hour Urine Mercury 24 Hour Zinc Rheumatoid Factor TRENT Screen TRENT Titer TRENT Titer 2 TRENT Titer 3 TRENT Pattern TRENT Pattern 2 TRENT Pattern 3 Anti-ds DNA Titer (Crith) Anti-ds DNA (Crithidia) T.pallidum Ab (EIA) Lyme Screen IgG & IgM Lyme Progressive Test COVID-19 ([facility]) COVID-19 Clin Com HIV 1&2 Ab/P24 Ag 4thGn HHV-6 (PCR) Ref Lab Test Result 12/27/21 12/27/21 12/27/21 08:00 08:00 08:11 WBC RBC Hgb Hct MCV MCH MCHC RDW Plt Count MPV Immature Gran % (Auto) Neut % (Auto) Lymph % (Auto) [place] % (Auto) Eos % (Auto) Baso % (Auto) Lymph # (Auto) [place] # (Auto) Eos # (Auto) Baso # (Auto) Abs Immat Gran (auto) Absolute Neuts (auto) Absolute Nucleated RBC Nucleated RBC % (auto) ESR PT 12.1 INR 1.1 APTT 38.5 H D-Dimer High Sensitivty Sodium Potassium Chloride Carbon Dioxide Anion Gap BUN Creatinine Estim Creat Clear Calc Estimated GFR Random Glucose Fasting Glucose Estimat Average Glucose Hemoglobin A1c % Uric Acid Calcium Magnesium Total Bilirubin AST ALT Alkaline Phosphatase Ammonia Total Creatine Kinase C-Reactive Protein Total Protein Albumin Ceruloplasmin Triglycerides Cholesterol LDL Cholesterol, Calc HDL Cholesterol Vitamin B12 Folate TSH Free T4 Total Testosterone Fr Testosterone Dialys Random Cortisol Urine Color Urine Appearance Urine pH Ur Specific [place] Urine Protein Urine Glucose (UA) Urine Ketones Urine Blood Urine Nitrite Ur Leukocyte Esterase CSF Tube Number CSF Volume CSF Appearance CSF Color CSF WBC CSF RBC CSF Lymphocytes CSF Appearance (b) CSF Glucose CSF Total Protein CSF Lyme IgG (Immblot) CSF Lyme IgG Bands Det CSF Lyme IgM (Immblot) CSF Lyme IgM Bands Det CSF C.neoform/gat PCR CSF CMV DNA (PCR) CSF Enterovirus (PCR) CSF E. coli K1 (PCR) CSF H. influenzae (PCR) CSF HSV I (PCR) CSF HSV II (PCR) CSF L.monocytogenes PCR CSF N. meningitidis PCR CSF Parechovirus (PCR) CSF S. agalactiae (PCR) CSF S. pneumoniae (PCR) CSF VZV (PCR) Ur Arsenic 24 Hour <10 Urine Cadmium 24 Hour <0.5 Serum Copper Ur Total Volume 1300 Ur Copper 24 Hr 9 L Urine Lead 24 Hour <10 Urine Mercury 24 Hour <4 Zinc Rheumatoid Factor TRENT Screen TRENT Titer TRENT Titer 2 TRENT Titer 3 TRENT Pattern TRENT Pattern 2 TRENT Pattern 3 Anti-ds DNA Titer (Crith) Anti-ds DNA (Crithidia) T.pallidum Ab (EIA) Lyme Screen IgG & IgM Lyme Progressive Test COVID-19 ([facility]) COVID-19 Clin Com HIV 1&2 Ab/P24 Ag 4thGn HHV-6 (PCR) Ref Lab Test Result 12/27/21 12/27/21 12/27/21 08:11 08:11 08:11 WBC RBC Hgb Hct MCV MCH MCHC RDW Plt Count 244 MPV Immature Gran % (Auto) Neut % (Auto) Lymph % (Auto) [place] % (Auto) Eos % (Auto) Baso % (Auto) Lymph # (Auto) [place] # (Auto) Eos # (Auto) Baso # (Auto) Abs Immat Gran (auto) Absolute Neuts (auto) Absolute Nucleated RBC Nucleated RBC % (auto) ESR 13 PT INR APTT D-Dimer High Sensitivty Sodium Potassium Chloride Carbon Dioxide Anion Gap BUN Creatinine Estim Creat Clear Calc Estimated GFR Random Glucose Fasting Glucose Estimat Average Glucose Hemoglobin A1c % Uric Acid Calcium Magnesium Total Bilirubin AST ALT Alkaline Phosphatase Ammonia Total Creatine Kinase 38 C-Reactive Protein Total Protein Albumin Ceruloplasmin Triglycerides Cholesterol LDL Cholesterol, Calc HDL Cholesterol Vitamin B12 Folate TSH Free T4 Total Testosterone Fr Testosterone Dialys Random Cortisol Urine Color Urine Appearance Urine pH Ur Specific [place] Urine Protein Urine Glucose (UA) Urine Ketones Urine Blood Urine Nitrite Ur Leukocyte Esterase CSF Tube Number CSF Volume CSF Appearance CSF Color CSF WBC CSF RBC CSF Lymphocytes CSF Appearance (b) CSF Glucose CSF Total Protein CSF Lyme IgG (Immblot) CSF Lyme IgG Bands Det CSF Lyme IgM (Immblot) CSF Lyme IgM Bands Det CSF C.neoform/gat PCR CSF CMV DNA (PCR) CSF Enterovirus (PCR) CSF E. coli K1 (PCR) CSF H. influenzae (PCR) CSF HSV I (PCR) CSF HSV II (PCR) CSF L.monocytogenes PCR CSF N. meningitidis PCR CSF Parechovirus (PCR) CSF S. agalactiae (PCR) CSF S. pneumoniae (PCR) CSF VZV (PCR) Ur Arsenic 24 Hour Urine Cadmium 24 Hour Serum Copper Ur Total Volume Ur Copper 24 Hr Urine Lead 24 Hour Urine Mercury 24 Hour Zinc Rheumatoid Factor < 15.0 TRENT Screen TRENT Titer TRENT Titer 2 TRENT Titer 3 TRENT Pattern TRENT Pattern 2 TRENT Pattern 3 Anti-ds DNA Titer (Crith) Anti-ds DNA (Crithidia) T.pallidum Ab (EIA) Lyme Screen IgG & IgM Lyme Progressive Test COVID-19 ([facility]) COVID-19 Clin Com HIV 1&2 Ab/P24 Ag 4thGn HHV-6 (PCR) Ref Lab Test Result 12/27/21 12/27/21 12/27/21 08:11 08:11 08:11 WBC RBC Hgb Hct MCV MCH MCHC RDW Plt Count MPV Immature Gran % (Auto) Neut % (Auto) Lymph % (Auto) [place] % (Auto) Eos % (Auto) Baso % (Auto) Lymph # (Auto) [place] # (Auto) Eos # (Auto) Baso # (Auto) Abs Immat Gran (auto) Absolute Neuts (auto) Absolute Nucleated RBC Nucleated RBC % (auto) ESR PT INR APTT D-Dimer High Sensitivty Sodium Potassium Chloride Carbon Dioxide Anion Gap BUN Creatinine Estim Creat Clear Calc Estimated GFR Random Glucose Fasting Glucose Estimat Average Glucose Hemoglobin A1c % Uric Acid Calcium Magnesium Total Bilirubin AST ALT Alkaline Phosphatase Ammonia Total Creatine Kinase C-Reactive Protein Total Protein Albumin Ceruloplasmin 34 Triglycerides Cholesterol LDL Cholesterol, Calc HDL Cholesterol Vitamin B12 Folate TSH Free T4 Total Testosterone Fr Testosterone Dialys Random Cortisol Urine Color Urine Appearance Urine pH Ur Specific [place] Urine Protein Urine Glucose (UA) Urine Ketones Urine Blood Urine Nitrite Ur Leukocyte Esterase CSF Tube Number CSF Volume CSF Appearance CSF Color CSF WBC CSF RBC CSF Lymphocytes CSF Appearance (b) CSF Glucose CSF Total Protein CSF Lyme IgG (Immblot) CSF Lyme IgG Bands Det CSF Lyme IgM (Immblot) CSF Lyme IgM Bands Det CSF C.neoform/gat PCR CSF CMV DNA (PCR) CSF Enterovirus (PCR) CSF E. coli K1 (PCR) CSF H. influenzae (PCR) CSF HSV I (PCR) CSF HSV II (PCR) CSF L.monocytogenes PCR CSF N. meningitidis PCR CSF Parechovirus (PCR) CSF S. agalactiae (PCR) CSF S. pneumoniae (PCR) CSF VZV (PCR) Ur Arsenic 24 Hour Urine Cadmium 24 Hour Serum Copper Ur Total Volume Ur Copper 24 Hr Urine Lead 24 Hour Urine Mercury 24 Hour Zinc Rheumatoid Factor TRENT Screen TRENT Titer TRENT Titer 2 TRENT Titer 3 TRENT Pattern TRENT Pattern 2 TRENT Pattern 3 Anti-ds DNA Titer (Crith) TNP Anti-ds DNA (Crithidia) Negative T.pallidum Ab (EIA) Lyme Screen IgG & IgM <0.90 Lyme Progressive Test TNP COVID-19 ([facility]) COVID-19 Clin Com HIV 1&2 Ab/P24 Ag 4thGn HHV-6 (PCR) Ref Lab Test Result 12/27/21 12/27/21 12/27/21 08:11 13:50 13:50 WBC RBC Hgb Hct MCV MCH MCHC RDW Plt Count MPV Immature Gran % (Auto) Neut % (Auto) Lymph % (Auto) [place] % (Auto) Eos % (Auto) Baso % (Auto) Lymph # (Auto) [place] # (Auto) Eos # (Auto) Baso # (Auto) Abs Immat Gran (auto) Absolute Neuts (auto) Absolute Nucleated RBC Nucleated RBC % (auto) ESR PT INR APTT D-Dimer High Sensitivty Sodium Potassium Chloride Carbon Dioxide Anion Gap BUN Creatinine Estim Creat Clear Calc Estimated GFR Random Glucose Fasting Glucose Estimat Average Glucose Hemoglobin A1c % Uric Acid Calcium Magnesium Total Bilirubin AST ALT Alkaline Phosphatase Ammonia Total Creatine Kinase C-Reactive Protein Total Protein Albumin Ceruloplasmin Triglycerides Cholesterol LDL Cholesterol, Calc HDL Cholesterol Vitamin B12 Folate TSH Free T4 Total Testosterone Fr Testosterone Dialys Random Cortisol Urine Color Urine Appearance Urine pH Ur Specific [place] Urine Protein Urine Glucose (UA) Urine Ketones Urine Blood Urine Nitrite Ur Leukocyte Esterase CSF Tube Number CSF Volume CSF Appearance CSF Color CSF WBC CSF RBC CSF Lymphocytes CSF Appearance (b) CSF Glucose CSF Total Protein CSF Lyme IgG (Immblot) CSF Lyme IgG Bands Det CSF Lyme IgM (Immblot) CSF Lyme IgM Bands Det CSF C.neoform/gat PCR Not Detected CSF CMV DNA (PCR) Not Detected CSF Enterovirus (PCR) Not Detected CSF E. coli K1 (PCR) Not Detected CSF H. influenzae (PCR) Not Detected CSF HSV I (PCR) Not Detected CSF HSV II (PCR) Not Detected CSF L.monocytogenes PCR Not Detected CSF N. meningitidis PCR Not Detected CSF Parechovirus (PCR) Not Detected CSF S. agalactiae (PCR) Not Detected CSF S. pneumoniae (PCR) Not Detected CSF VZV (PCR) Not Detected Ur Arsenic 24 Hour Urine Cadmium 24 Hour Serum Copper 154 Ur Total Volume Ur Copper 24 Hr Urine Lead 24 Hour Urine Mercury 24 Hour Zinc Rheumatoid Factor TRENT Screen TRENT Titer TRENT Titer 2 TRENT Titer 3 TRENT Pattern TRENT Pattern 2 TRENT Pattern 3 Anti-ds DNA Titer (Crith) Anti-ds DNA (Crithidia) T.pallidum Ab (EIA) Lyme Screen IgG & IgM Lyme Progressive Test COVID-19 ([facility]) COVID-19 Clin Com HIV 1&2 Ab/P24 Ag 4thGn HHV-6 (PCR) Not Detected Ref Lab Test Result See Note 12/27/21 12/27/21 12/27/21 13:50 13:50 13:50 WBC RBC Hgb Hct MCV MCH MCHC RDW Plt Count MPV Immature Gran % (Auto) Neut % (Auto) Lymph % (Auto) [place] % (Auto) Eos % (Auto) Baso % (Auto) Lymph # (Auto) [place] # (Auto) Eos # (Auto) Baso # (Auto) Abs Immat Gran (auto) Absolute Neuts (auto) Absolute Nucleated RBC Nucleated RBC % (auto) ESR PT INR APTT D-Dimer High Sensitivty Sodium Potassium Chloride Carbon Dioxide Anion Gap BUN Creatinine Estim Creat Clear Calc Estimated GFR Random Glucose Fasting Glucose Estimat Average Glucose Hemoglobin A1c % Uric Acid Calcium Magnesium Total Bilirubin AST ALT Alkaline Phosphatase Ammonia Total Creatine Kinase C-Reactive Protein Total Protein Albumin Ceruloplasmin Triglycerides Cholesterol LDL Cholesterol, Calc HDL Cholesterol Vitamin B12 Folate TSH Free T4 Total Testosterone Fr Testosterone Dialys Random Cortisol Urine Color Urine Appearance Urine pH Ur Specific [place] Urine Protein Urine Glucose (UA) Urine Ketones Urine Blood Urine Nitrite Ur Leukocyte Esterase CSF Tube Number 1 4 CSF Volume 4.0 CSF Appearance CLEAR CSF Color COLORLESS CSF WBC 1 CSF RBC 0 CSF Lymphocytes 100 CSF Appearance (b) Clear, Colorless CSF Glucose 57 CSF Total Protein 39.8 CSF Lyme IgG (Immblot) NO BANDS DETECTED CSF Lyme IgG Bands Det TNP CSF Lyme IgM (Immblot) NO BANDS DETECTED CSF Lyme IgM Bands Det TNP CSF C.neoform/gat PCR CSF CMV DNA (PCR) CSF Enterovirus (PCR) CSF E. coli K1 (PCR) CSF H. influenzae (PCR) CSF HSV I (PCR) CSF HSV II (PCR) CSF L.monocytogenes PCR CSF N. meningitidis PCR CSF Parechovirus (PCR) CSF S. agalactiae (PCR) CSF S. pneumoniae (PCR) CSF VZV (PCR) Ur Arsenic 24 Hour Urine Cadmium 24 Hour Serum Copper Ur Total Volume Ur Copper 24 Hr Urine Lead 24 Hour Urine Mercury 24 Hour Zinc Rheumatoid Factor TRENT Screen TRENT Titer TRENT Titer 2 TRENT Titer 3 TRENT Pattern TRENT Pattern 2 TRENT Pattern 3 Anti-ds DNA Titer (Crith) Anti-ds DNA (Crithidia) T.pallidum Ab (EIA) Lyme Screen IgG & IgM Lyme Progressive Test COVID-19 ([facility]) COVID-19 Clin Com HIV 1&2 Ab/P24 Ag 4thGn HHV-6 (PCR) Ref Lab Test Result 12/29/21 12/29/21 01/04/22 07:18 07:18 08:12 WBC RBC Hgb Hct MCV MCH MCHC RDW Plt Count MPV Immature Gran % (Auto) Neut % (Auto) Lymph % (Auto) [place] % (Auto) Eos % (Auto) Baso % (Auto) Lymph # (Auto) [place] # (Auto) Eos # (Auto) Baso # (Auto) Abs Immat Gran (auto) Absolute Neuts (auto) Absolute Nucleated RBC Nucleated RBC % (auto) ESR PT INR APTT D-Dimer High Sensitivty Sodium Potassium Chloride Carbon Dioxide Anion Gap BUN Creatinine Estim Creat Clear Calc Estimated GFR Random Glucose Fasting Glucose Estimat Average Glucose Hemoglobin A1c % Uric Acid Calcium Magnesium Total Bilirubin AST ALT Alkaline Phosphatase Ammonia 26 Total Creatine Kinase C-Reactive Protein Total Protein Albumin 3.7 Ceruloplasmin Triglycerides Cholesterol LDL Cholesterol, Calc HDL Cholesterol Vitamin B12 Folate TSH Free T4 Total Testosterone Fr Testosterone Dialys Random Cortisol 18.3 Urine Color Urine Appearance Urine pH Ur Specific [place] Urine Protein Urine Glucose (UA) Urine Ketones Urine Blood Urine Nitrite Ur Leukocyte Esterase CSF Tube Number CSF Volume CSF Appearance CSF Color CSF WBC CSF RBC CSF Lymphocytes CSF Appearance (b) CSF Glucose CSF Total Protein CSF Lyme IgG (Immblot) CSF Lyme IgG Bands Det CSF Lyme IgM (Immblot) CSF Lyme IgM Bands Det CSF C.neoform/gat PCR CSF CMV DNA (PCR) CSF Enterovirus (PCR) CSF E. coli K1 (PCR) CSF H. influenzae (PCR) CSF HSV I (PCR) CSF HSV II (PCR) CSF L.monocytogenes PCR CSF N. meningitidis PCR CSF Parechovirus (PCR) CSF S. agalactiae (PCR) CSF S. pneumoniae (PCR) CSF VZV (PCR) Ur Arsenic 24 Hour Urine Cadmium 24 Hour Serum Copper Ur Total Volume Ur Copper 24 Hr Urine Lead 24 Hour Urine Mercury 24 Hour Zinc Rheumatoid Factor TRENT Screen TRENT Titer TRENT Titer 2 TRENT Titer 3 TRENT Pattern TRENT Pattern 2 TRENT Pattern 3 Anti-ds DNA Titer (Crith) Anti-ds DNA (Crithidia) T.pallidum Ab (EIA) Lyme Screen IgG & IgM Lyme Progressive Test COVID-19 ([facility]) COVID-19 Clin Com HIV 1&2 Ab/P24 Ag 4thGn HHV-6 (PCR) Ref Lab Test Result 01/04/22 01/28/22 01/28/22 08:12 11:08 11:08 WBC 4.0 L RBC 4.84 Hgb 13.6 L Hct 41.8 L MCV 86.4 MCH 28.1 MCHC 32.5 RDW 14.0 Plt Count 170 D MPV 9.6 Immature Gran % (Auto) 0.5 H Neut % (Auto) 67.6 Lymph % (Auto) 22.6 [place] % (Auto) 7.0 Eos % (Auto) 1.8 Baso % (Auto) 0.5 Lymph # (Auto) 0.9 L [place] # (Auto) 0.3 Eos # (Auto) 0.1 Baso # (Auto) 0.0 Abs Immat Gran (auto) 0.02 Absolute Neuts (auto) 2.7 Absolute Nucleated RBC 0.000 Nucleated RBC % (auto) 0.0 ESR PT INR APTT D-Dimer High Sensitivty Sodium 143 Potassium 4.2 Chloride 107 Carbon Dioxide 29 Anion Gap 11 L BUN 18 H Creatinine 1.12 Estim Creat Clear Calc 79.8 Estimated GFR > 60 Random Glucose 99 Fasting Glucose Estimat Average Glucose Hemoglobin A1c % Uric Acid Calcium 9.3 Magnesium Total Bilirubin 0.3 AST 8 ALT 7 Alkaline Phosphatase 69 D Ammonia Total Creatine Kinase C-Reactive Protein Total Protein 5.9 L Albumin 3.8 Ceruloplasmin Triglycerides Cholesterol LDL Cholesterol, Calc HDL Cholesterol Vitamin B12 Folate TSH Free T4 Total Testosterone Fr Testosterone Dialys Random Cortisol Urine Color Urine Appearance Urine pH Ur Specific [place] Urine Protein Urine Glucose (UA) Urine Ketones Urine Blood Urine Nitrite Ur Leukocyte Esterase CSF Tube Number CSF Volume CSF Appearance CSF Color CSF WBC CSF RBC CSF Lymphocytes CSF Appearance (b) CSF Glucose CSF Total Protein CSF Lyme IgG (Immblot) CSF Lyme IgG Bands Det CSF Lyme IgM (Immblot) CSF Lyme IgM Bands Det CSF C.neoform/gat PCR CSF CMV DNA (PCR) CSF Enterovirus (PCR) CSF E. coli K1 (PCR) CSF H. influenzae (PCR) CSF HSV I (PCR) CSF HSV II (PCR) CSF L.monocytogenes PCR CSF N. meningitidis PCR CSF Parechovirus (PCR) CSF S. agalactiae (PCR) CSF S. pneumoniae (PCR) CSF VZV (PCR) Ur Arsenic 24 Hour Urine Cadmium 24 Hour Serum Copper Ur Total Volume Ur Copper 24 Hr Urine Lead 24 Hour Urine Mercury 24 Hour Zinc 64 Rheumatoid Factor TRENT Screen TRENT Titer TRENT Titer 2 TRENT Titer 3 TRENT Pattern TRENT Pattern 2 TRENT Pattern 3 Anti-ds DNA Titer (Crith) Anti-ds DNA (Crithidia) T.pallidum Ab (EIA) Lyme Screen IgG & IgM Lyme Progressive Test COVID-19 ([facility]) COVID-19 Clin Com HIV 1&2 Ab/P24 Ag 4thGn HHV-6 (PCR) Ref Lab Test Result 01/29/22 01/29/22 01/29/22 08:08 08:08 09:08 WBC RBC Hgb Hct MCV MCH MCHC RDW Plt Count MPV Immature Gran % (Auto) Neut % (Auto) Lymph % (Auto) [place] % (Auto) Eos % (Auto) Baso % (Auto) Lymph # (Auto) [place] # (Auto) Eos # (Auto) Baso # (Auto) Abs Immat Gran (auto) Absolute Neuts (auto) Absolute Nucleated RBC Nucleated RBC % (auto) ESR PT INR APTT D-Dimer High Sensitivty Sodium Potassium Chloride Carbon Dioxide Anion Gap BUN Creatinine Estim Creat Clear Calc Estimated GFR Random Glucose Fasting Glucose Estimat Average Glucose 97 Hemoglobin A1c % 5.0 Uric Acid Calcium Magnesium Total Bilirubin AST ALT Alkaline Phosphatase Ammonia Total Creatine Kinase C-Reactive Protein Total Protein Albumin Ceruloplasmin Triglycerides 116 Cholesterol 222 D LDL Cholesterol, Calc 170 HDL Cholesterol 29 Vitamin B12 Folate TSH Free T4 Total Testosterone Fr Testosterone Dialys Random Cortisol Urine Color Urine Appearance Urine pH Ur Specific [place] Urine Protein Urine Glucose (UA) Urine Ketones Urine Blood Urine Nitrite Ur Leukocyte Esterase CSF Tube Number CSF Volume CSF Appearance CSF Color CSF WBC CSF RBC CSF Lymphocytes CSF Appearance (b) CSF Glucose CSF Total Protein CSF Lyme IgG (Immblot) CSF Lyme IgG Bands Det CSF Lyme IgM (Immblot) CSF Lyme IgM Bands Det CSF C.neoform/gat PCR CSF CMV DNA (PCR) CSF Enterovirus (PCR) CSF E. coli K1 (PCR) CSF H. influenzae (PCR) CSF HSV I (PCR) CSF HSV II (PCR) CSF L.monocytogenes PCR CSF N. meningitidis PCR CSF Parechovirus (PCR) CSF S. agalactiae (PCR) CSF S. pneumoniae (PCR) CSF VZV (PCR) Ur Arsenic 24 Hour Urine Cadmium 24 Hour Serum Copper Ur Total Volume Ur Copper 24 Hr Urine Lead 24 Hour Urine Mercury 24 Hour Zinc Rheumatoid Factor TRENT Screen TRENT Titer TRENT Titer 2 TRENT Titer 3 TRENT Pattern TRENT Pattern 2 TRENT Pattern 3 Anti-ds DNA Titer (Crith) Anti-ds DNA (Crithidia) T.pallidum Ab (EIA) Lyme Screen IgG & IgM Lyme Progressive Test COVID-19 ([facility]) Negative COVID-19 Clin Com See Note HIV 1&2 Ab/P24 Ag 4thGn HHV-6 (PCR) Ref Lab Test Result Airway Mallampati Class: II (Loose tooth lateral) TM Dist: >3cm Neck ROM: Full Heart: rrr Lungs: cta Assessment and Plan Assessment Anesthesia Assessment: Anesthesia Plan Discussed and Chart Reviewed Final Anesthetic Review Family History of Problems with Anesthesia: No History of Problems with Anesthesia: No NPO: Yes ASA Class: III Final Preanesthetic Review: No Changes in Pt Med Stat, Meds/Allgs Chart Reviewed and Consent Obtained/Reviewed Patient Risk: Intermediate Procedure Risk: Intermediate Anesthetic Plan Anesthetic Plan: GA Disposition: Standard PACU
--- NOTE | 2022-01-30 08:12 | MHC.SHP ---
Pre-Procedural Eval Section A Date of Service: 01/30/22 The patient is an INPATIENT: Yes Changes since office visit: No Cold of Flu in the past 2 weeks, No New Medical Problems, No Changes in Medication and No Patient answered all questions The History & Physical has been completed within 30 days and I have reviewed it.: Yes Section B Chief Complaint: unspecified bipolar and related d/o Allergies: Allergies Allergy/AdvReac Type Severity Reaction Status Date / Time No Known Allergies Allergy Unverified 11/07/21 21:23 Plan I have reviewed the history and physical and performed a pertinent physical examination on my patient. No changes have occurred unless specified.
--- NOTE | 2022-01-30 08:13 | HO.ECTPROC ---
ECT Procedure Note Diagnosis/Treatment Date of Service: 01/30/22 Diagnosis: Major Depressive Disorder (with psychosis) Current Treatment Number: 1 Treatment: Series Interval Clinical Notes: Informed consent for ECT was obtained with the patient's who is his affirmed healthcare proxy. Legal status was reviewed with the patient and I have discussed risks benefits alternatives with both patient and . Patient remains withdrawn perplexed mostly bed ridden generally saying I do not know anxious irritable he was given much reassurance prior to the procedure ECT Settings Device: THYMATRON DGx Electrode Placement: Right Unilateral Program/Pulse Width: 0.50 Energy Percent: 100 Seizure Duration By EEG (in seconds): 91 Medications Administration General Anesthetic: Etomidate (14) Muscle Relaxant: Succinylcholine (100) Ancillary Medications Analgesics: Torodol - Pre ECT Anti-emetics: Zofran - Pre ECT Miscillaneous Medications: Propofol (30 mg at 44 s) Airway Management Airway Management: Bag Mask Ventilation Treatment Recommendations Electrode Placement: Right Unilateral Program/Pulse Width: 0.25 Notes: Can decrease 2 5 pulsewidth program had some postoperative confusion responded to reassurance
[2022-01-30] MEDS: Acetaminophen 325 MG TABLET 650 MG PO (10:33)
[2022-01-30] MEDS: DULoxetine HCl 30 MG CAPSULE.DR PO (12:06)
[2022-01-30] MEDS: Sucralfate 1 GM TABLET PO ×3 (12:07→20:52)
[2022-01-30] MEDS: risperiDONE 1 MG TABLET PO ×2 (12:07→20:51)
[2022-01-30] MEDS: amantadine HCL 100 MG CAPSULE PO ×2 (12:07→20:51)
[2022-01-30] MEDS: polyethylene glycoL 3350 17 GM POWD.PACK PO (12:07)
--- NOTE | 2022-01-30 17:00 | HO.PSYCHPN ---
Subjective Subjective Date of Service: 01/30/22 Reason For Visit: unspecified bipolar and related d/o Subjective Notes: Conditional Voluntary (HCP activation and validation) Healthcare Proxy: Yes Guardianship: No Medical Problems Affecting Mental Status: No Interim History: Gerry completed ECT #1 with success. He had no resistance in going down for the treatment. He did have some anxiety, agitation post anesthesia and was given ativan with positive outcome. Able to meet with pt before his lunch arrived. He appears brighter, more positive, stating that I did it . States it was not that bad . I am doing it again on Friday. I just hope it works . Pt is tired but today he initiates this conversation, asked tw questions about ECT and pt outcome and states he would like to go home to family, and children- it is hard to be here you know. This is a significant change for Gerry. Medication Compliance: Yes Side effects from medications: No Attending Groups: No Review of Systems Acute medical concerns: No Medical Review of Systems: unchanged Review of Systems Reports behavioral changes, Reports confusion and Reports memory loss Psychiatric: Reports anxiety, Reports behavioral changes, Reports confusion, Reports depression, Reports difficulty concentrating, Reports hopelessness, Reports irritability, Reports anhedonia, Reports memory loss, Reports mood swings and Reports paranoia Mental Status Exam Mental Status Exam Patient Appearance: Fatigued and Disheveled Patient Orientation: Person, Place, Time and Situation Level of Consciousness: Alert Patient Behavior: Guarded, Talkative, Passive, Suspicious, Anxious, Fearful, Resistive to Care, Avoidant, Fatigued, Distractible, Isolative, Good Eye Contact and Poor Eye Contact Mood Description: Depressed and Angry Affect Description: Flat Patient Cognition Impaired: No Ability to Follow Directions: Fair Speech Pattern: Spontaneous Speech and Soft-Spoken Memory Description: Remote Impaired Hallucinations: None Delusions: Paranoid Ideation Perceptual Disturbances: Depersonalization and Derealization Thought Process: Rumination and Evasive Thought Content: positive for Obsessional Thoughts, positive for Perseveration, positive for Preoccupation, positive for Thought Blocking, positive for Evasive and positive for Hypochondriasis Depressive Symptoms: Increased Anxiety, Diff. Making Decisions, Increased Irritability, Loss of Int. in Activity, Feelings of Worthlessness, Hopelessness, Isolating-Friends/Family, Feelings of Guilt, Unhappiness, Increased Fatigue, Low Self Esteem, Loss of Energy and Difficulty Concentrating Judgement: Poor Diagnostics Vital Signs (24Hr): Vital Signs - 24 hr 01/30/22 06:00 01/30/22 06:17 01/30/22 06:34 Temperature 98.0 F 98.0 F 97.9 F Pulse Rate 96 96 72 Respiratory Rate 18 18 20 Blood Pressure 109/74 109/74 131/95 H Pulse Oximetry 99 99 100 01/30/22 09:24 01/30/22 09:29 01/30/22 09:34 Temperature 99 F Pulse Rate 75 79 104 H Respiratory Rate 16 16 16 Blood Pressure 123/74 117/85 137/87 Pulse Oximetry 100 97 96 01/30/22 09:39 01/30/22 09:50 01/30/22 10:00 Temperature Pulse Rate 124 H 102 H 91 Respiratory Rate 18 16 17 Blood Pressure 151/92 H 149/91 H Pulse Oximetry 92 96 96 01/30/22 10:17 01/30/22 10:32 Temperature 97.9 F Pulse Rate 84 75 Respiratory Rate 16 16 Blood Pressure 129/88 140/96 H Pulse Oximetry 94 95 BMI result Body Mass Index 26.2 Labs Results: 01/28/22 11:08 01/28/22 11:08 Labs: Laboratory Results - last 48 hr 01/29/22 01/29/22 01/29/22 08:08 08:08 09:08 Estimat Average Glucose 97 Hemoglobin A1c % 5.0 Triglycerides 116 Cholesterol 222 D LDL Cholesterol, Calc 170 HDL Cholesterol 29 COVID-19 ([facility]) Negative COVID-19 Clin Com See Note Imaging Radiology Impressions: ITS Impressions Foot X-Ray 11/08/21 17:32 IMPRESSION: Tiny Achilles heel spur. Otherwise unremarkable appearance of the left foot. Cervical Spine X-Ray 11/22/21 14:50 IMPRESSION: No fracture or malalignment. Mild degenerative changes. Forearm X-Ray 11/22/21 14:50 IMPRESSION: No acute fractures or malalignment within the imaged left upper extremity. Hip X-Ray 11/22/21 14:50 IMPRESSION: No acute fractures or malalignment. Humerus X-Ray 11/22/21 14:50 IMPRESSION: No acute fractures or malalignment within the imaged left upper extremity. Shoulder X-Ray 11/22/21 14:50 IMPRESSION: No acute fractures or malalignment within the imaged left upper extremity. Head CT 12/22/21 16:42 IMPRESSION: No acute intracranial pathology. Hand X-Ray 12/25/21 08:38 IMPRESSION: No soft tissue foreign body seen. Brain MRI 12/25/21 09:20 IMPRESSION: No acute intracranial findings. No acute infarcts. There is mild chronic microangiopathy. No pathologic enhancement. Lumbar Puncture Fluoroscopy 12/27/21 14:00 IMPRESSION: Successful ultrasound-guided lumbar puncture performed without immediate complications. Barium Swallow X-Ray 01/10/22 08:29 IMPRESSION: Unremarkable barium swallow in upright and supine position. Occasional secondary and tertiary peristalsis seen in mid and distal esophagus with solid foot but no obstruction.. Medications Medications Current Medications Acetaminophen (Acetaminophen 325 Mg Tablet) 650 mg PO Q6H PRN PRN Reason: Headache/Pain Mild Scale (1-3) Last Admin: 01/30/22 10:33 Dose: 650 mg Documented by: Al Hydroxide/Mg Hydroxide (Magnesium Hydrox/Alum Hydrox 30 Ml Oral.Susp) 30 ml PO Q6H PRN PRN Reason: Heartburn/Nausea Amantadine HCl (Amantadine Hcl 100 Mg Capsule) 100 mg PO BID [facility] Last Admin: 01/30/22 12:07 Dose: 100 mg Documented by: Duloxetine HCl (Duloxetine Hcl 30 Mg Capsule.) 30 mg PO DAILY [facility] Last Admin: 01/30/22 12:06 Dose: 30 mg Documented by: Enoxaparin Sodium (Enoxaparin Sodium 40 Mg/0.4 Ml Syringe) 40 mg SUBCUT 2100 [facility] Last Admin: 12/25/21 19:24 Dose: 40 mg Documented by: Ferrous Sulfate (Ferrous Sulfate 324 Mg Tablet.) 324 mg PO BEDTIME [facility] Last Admin: 01/29/22 20:54 Dose: 324 mg Documented by: Hydroxyzine HCl (Hydroxyzine Hcl 25 Mg Tablet) 25 mg PO Q6H PRN PRN Reason: Anxiety Last Admin: 12/16/21 22:28 Dose: 25 mg Documented by: Loperamide HCl (Loperamide Hcl 2 Mg Capsule) 2 mg PO Q6H PRN PRN Reason: Diarrhea Last Admin: 11/17/21 13:40 Dose: 2 mg Documented by: Magnesium Hydroxide (Milk Of Magnesia 30 Ml Oral.Susp) 30 ml PO DAILY PRN PRN Reason: Constipation Omeprazole (Omeprazole 40 Mg Capsule.) 40 mg PO DAILY@0630 [facility] Last Admin: 01/30/22 07:14 Dose: Not Given Documented by: Polyethylene Glycol (Polyethylene Glycol 3350 17 Gm Powd.Pack) 17 gm PO DAILY [facility] Last Admin: 01/30/22 12:07 Dose: 17 gm Documented by: Psyllium Hydrophilic Mucilloid (Psyllium Seed 3.4 Gm Powd.Pack) 3.4 gm PO BEDTIME [facility] Last Admin: 01/29/22 20:56 Dose: Not Given Documented by: Risperidone (Risperidone 1 Mg Tablet) 1 mg PO BID [facility] Last Admin: 01/30/22 12:07 Dose: 1 mg Documented by: Sucralfate (Sucralfate 1 Gm Tablet) 1 gm PO TID [facility] Last Admin: 01/30/22 14:29 Dose: 1 gm Documented by: Trazodone HCl (Trazodone Hcl 50 Mg Tablet) 50 mg PO BEDTIME PRN PRN Reason: Insomnia Allergies Allergies Allergy/AdvReac Type Severity Reaction Status Date / Time No Known Allergies Allergy Unverified 11/07/21 21:23 Assessment & Plan Assessment & Plan (1) MDD (major depressive disorder), recurrent, severe, with psychosis: Status: Acute Code(s): F33.3 - Major depressive disorder, recurrent, severe with psychotic symptoms (2) Encephalopathy chronic: Status: Acute Code(s): G93.49 - Other encephalopathy Plan Remains depressed, anergic, unable to make a clear decision/choice. HCP activated, today, pt able to give SSN for court paperwork Continue Cymbalta, Risperdal, Sertraline Work with pt, , team to move forward with plan of care- prepare for ECT Pt completed barium swallow- results negative 01/11/22 Increase Risperdal to 2 mg bid 01/12/2022 Patient seen extensively reviewed diagnosis expectation for treatment with ECT risks benefits alternatives and lack of response to medication. Also reviewed patient's medical history that there is does not appear to be any other etiology to his condition. Again reviewed ECT procedure continues to have difficulty with decision making in taking information 01/14/22 Support, educate, prepare for HCP affirmation-ECT 01/16/22 Increase Cymbalta to 60 mg daily Discontinue Sertraline 01/17/22 Decrease Cymbalta to 30 mg daily-Gerry is planning on beginning to refuse meds, will taper back slowly should he choose tapering. 01/19/22: no change to the above 01/20/22: no change 01/21/22: Anticipating court validation of HCP with increase in fear, anxiety and resulting anger. States he plans to refuse medications-dose of Cymbalta decreased to prepare to manage SE, however, pt is compliant with regime at this time. 01/23/22: Continue current plan Offer support, answer questions, address concerns, attempt to manage pt's anxiety regarding treatment 01/24/22: Court hearing 01/25/22. Offer support to pt. Continue current medications-pt has not refused his regime he reports today. 01/25/22: Discussed with team-Initial planning with Gerry and his to address negative emotions surrounding treatment and outcome so we may help Gerry move toward his recovery in a positive frame of reference. 01/26 no changes to current tx regimen 01/27 no changes to current tx regimen 01/28/22: Medical clearance for tentative ECT on 01/30/22. 01/29/22: Prepare for ECT on 01/30/22. Today, pt continues to decline further education and support 01/30/22: Continue current plan of care I spent minutes with the patient and/or on the patient floor today, greater than?50% of which was spent counseling/coordinating care. Patient educated on: therapeutic strategies Informed Consent: further education needed Reason for contiued inpatient stay Substantial Risk for: inability to function and rapid decompensation
[2022-01-30] MEDS: Ferrous Sulfate 324 MG TABLET.DR PO (20:51)
[2022-01-31 06:00] VITALS: BP 132/84; PULSE 69; RESP 16; TEMP 36.4; O2SAT 97
[2022-01-31] MEDS: Omeprazole 40 MG CAPSULE.DR PO (06:28)
[2022-01-31 07:00] VITALS: BMI 26.4
[2022-01-31] MEDS: risperiDONE 1 MG TABLET PO ×2 (08:17→20:53)
[2022-01-31] MEDS: Sucralfate 1 GM TABLET PO ×3 (08:17→20:53)
[2022-01-31] MEDS: DULoxetine HCl 30 MG CAPSULE.DR PO (08:17)
[2022-01-31] MEDS: amantadine HCL 100 MG CAPSULE PO ×2 (08:17→20:53)
[2022-01-31] MEDS: polyethylene glycoL 3350 17 GM POWD.PACK PO (08:21)
--- NOTE | 2022-01-31 13:41 | HO.PSYCHPN ---
Subjective Subjective Date of Service: 01/31/22 Reason For Visit: unspecified bipolar and related d/o Subjective Notes: Conditional Voluntary (HCP activation) Healthcare Proxy: Yes Guardianship: No Medical Problems Affecting Mental Status: No Interim History: Improved today. Initiates conversation, weaver range of affect, laughs, jokes with sarcasm. Spent time talking about each child, his pride in their individual achievements, their different personalities and how much he misses them. Do you think I will ever see them again? Expresses great juancarlos with each child. Discussed Eliseo coming home on 02/22/22. Asked pt if we could attempt to set a goal for him to be home for him. I would like that, but I don't know. Do you not want me here anymore? I am sick of all of you at this point but I don't know what I will do without all of you. (laughs) Discussed ECT. Reports some abdominal muscle pain post treatment. PRN Ibuprofen ordered. Discussed his difficulty post anesthesia with the first treatment. Asks that Ativan be available for him-reassured. During the afternoon, Gerry was out of his room on the telephone a few times, seemingly actively engaged in conversation. Medication Compliance: Yes Side effects from medications: No Attending Groups: No Review of Systems Acute medical concerns: No Medical Review of Systems: unchanged Review of Systems Reports behavioral changes, Reports confusion and Reports memory loss Psychiatric: Reports anxiety, Reports behavioral changes, Reports confusion, Reports depression, Reports difficulty concentrating, Reports hopelessness, Reports anhedonia, Reports memory loss, Reports paranoia and Reports suicidal ideation (denies) Mental Status Exam Mental Status Exam Patient Appearance: Appropriate (pt has showered) Patient Orientation: Person, Place, Time and Situation Level of Consciousness: Alert Patient Behavior: Appropriate, Talkative, Cooperative and Good Eye Contact Mood Description: Relaxed Affect Description: Flat Patient Cognition Impaired: No Ability to Follow Directions: Good Speech Pattern: Spontaneous Speech Memory Description: Episodic Impaired Delusions: Paranoid Ideation Perceptual Disturbances: Depersonalization and Derealization Thought Process: Distracted and Rumination Thought Content: positive for [place], positive for Circumstantial and positive for Perseveration (less so than before) Depressive Symptoms: Increased Anxiety, Diff. Making Decisions, Hopelessness and Low Self Esteem Judgement: Fair Diagnostics Vital Signs (24Hr): Vital Signs - 24 hr 01/30/22 18:00 01/31/22 06:00 Temperature 97.1 F 97.6 F Pulse Rate 73 69 Respiratory Rate 16 16 Blood Pressure 119/68 132/84 Pulse Oximetry 97 BMI result Body Mass Index 26.4 Labs Results: 01/28/22 11:08 01/28/22 11:08 Imaging Radiology Impressions: ITS Impressions Foot X-Ray 11/08/21 17:32 IMPRESSION: Tiny Achilles heel spur. Otherwise unremarkable appearance of the left foot. Cervical Spine X-Ray 11/22/21 14:50 IMPRESSION: No fracture or malalignment. Mild degenerative changes. Forearm X-Ray 11/22/21 14:50 IMPRESSION: No acute fractures or malalignment within the imaged left upper extremity. Hip X-Ray 11/22/21 14:50 IMPRESSION: No acute fractures or malalignment. Humerus X-Ray 11/22/21 14:50 IMPRESSION: No acute fractures or malalignment within the imaged left upper extremity. Shoulder X-Ray 11/22/21 14:50 IMPRESSION: No acute fractures or malalignment within the imaged left upper extremity. Head CT 12/22/21 16:42 IMPRESSION: No acute intracranial pathology. Hand X-Ray 12/25/21 08:38 IMPRESSION: No soft tissue foreign body seen. Brain MRI 12/25/21 09:20 IMPRESSION: No acute intracranial findings. No acute infarcts. There is mild chronic microangiopathy. No pathologic enhancement. Lumbar Puncture Fluoroscopy 12/27/21 14:00 IMPRESSION: Successful ultrasound-guided lumbar puncture performed without immediate complications. Barium Swallow X-Ray 01/10/22 08:29 IMPRESSION: Unremarkable barium swallow in upright and supine position. Occasional secondary and tertiary peristalsis seen in mid and distal esophagus with solid foot but no obstruction.. Medications Medications Current Medications Acetaminophen (Acetaminophen 325 Mg Tablet) 650 mg PO Q6H PRN PRN Reason: Headache/Pain Mild Scale (1-3) Last Admin: 01/30/22 10:33 Dose: 650 mg Documented by: Al Hydroxide/Mg Hydroxide (Magnesium Hydrox/Alum Hydrox 30 Ml Oral.Susp) 30 ml PO Q6H PRN PRN Reason: Heartburn/Nausea Amantadine HCl (Amantadine Hcl 100 Mg Capsule) 100 mg PO BID [facility] Last Admin: 01/31/22 08:17 Dose: 100 mg Documented by: Duloxetine HCl (Duloxetine Hcl 30 Mg Capsule.) 30 mg PO DAILY [facility] Last Admin: 01/31/22 08:17 Dose: 30 mg Documented by: Enoxaparin Sodium (Enoxaparin Sodium 40 Mg/0.4 Ml Syringe) 40 mg SUBCUT 2100 [facility] Last Admin: 12/25/21 19:24 Dose: 40 mg Documented by: Ferrous Sulfate (Ferrous Sulfate 324 Mg Tablet.) 324 mg PO BEDTIME [facility] Last Admin: 01/30/22 20:51 Dose: 324 mg Documented by: Hydroxyzine HCl (Hydroxyzine Hcl 25 Mg Tablet) 25 mg PO Q6H PRN PRN Reason: Anxiety Last Admin: 12/16/21 22:28 Dose: 25 mg Documented by: Loperamide HCl (Loperamide Hcl 2 Mg Capsule) 2 mg PO Q6H PRN PRN Reason: Diarrhea Last Admin: 11/17/21 13:40 Dose: 2 mg Documented by: Magnesium Hydroxide (Milk Of Magnesia 30 Ml Oral.Susp) 30 ml PO DAILY PRN PRN Reason: Constipation Omeprazole (Omeprazole 40 Mg Capsule.) 40 mg PO DAILY@0630 [facility] Last Admin: 01/31/22 06:28 Dose: 40 mg Documented by: Polyethylene Glycol (Polyethylene Glycol 3350 17 Gm Powd.Pack) 17 gm PO DAILY [facility] Last Admin: 01/31/22 08:21 Dose: 17 gm Documented by: Psyllium Hydrophilic Mucilloid (Psyllium Seed 3.4 Gm Powd.Pack) 3.4 gm PO BEDTIME [facility] Last Admin: 01/30/22 20:19 Dose: Not Given Documented by: Risperidone (Risperidone 1 Mg Tablet) 1 mg PO BID [facility] Last Admin: 01/31/22 08:17 Dose: 1 mg Documented by: Sucralfate (Sucralfate 1 Gm Tablet) 1 gm PO TID [facility] Last Admin: 01/31/22 08:17 Dose: 1 gm Documented by: Trazodone HCl (Trazodone Hcl 50 Mg Tablet) 50 mg PO BEDTIME PRN PRN Reason: Insomnia Allergies Allergies Allergy/AdvReac Type Severity Reaction Status Date / Time No Known Allergies Allergy Unverified 11/07/21 21:23 Assessment & Plan Assessment & Plan (1) MDD (major depressive disorder), recurrent, severe, with psychosis: Status: Acute Code(s): F33.3 - Major depressive disorder, recurrent, severe with psychotic symptoms (2) Encephalopathy chronic: Status: Acute Code(s): G93.49 - Other encephalopathy Plan Remains depressed, anergic, unable to make a clear decision/choice. HCP activated, today, pt able to give SSN for court paperwork Continue Cymbalta, Risperdal, Sertraline Work with pt, , team to move forward with plan of care- prepare for ECT Pt completed barium swallow- results negative 01/11/22 Increase Risperdal to 2 mg bid 01/12/2022 Patient seen extensively reviewed diagnosis expectation for treatment with ECT risks benefits alternatives and lack of response to medication. Also reviewed patient's medical history that there is does not appear to be any other etiology to his condition. Again reviewed ECT procedure continues to have difficulty with decision making in taking information 01/14/22 Support, educate, prepare for HCP affirmation-ECT 01/16/22 Increase Cymbalta to 60 mg daily Discontinue Sertraline 01/17/22 Decrease Cymbalta to 30 mg daily-Gerry is planning on beginning to refuse meds, will taper back slowly should he choose tapering. 01/19/22: no change to the above 01/20/22: no change 01/21/22: Anticipating court validation of HCP with increase in fear, anxiety and resulting anger. States he plans to refuse medications-dose of Cymbalta decreased to prepare to manage SE, however, pt is compliant with regime at this time. 01/23/22: Continue current plan Offer support, answer questions, address concerns, attempt to manage pt's anxiety regarding treatment 01/24/22: Court hearing 01/25/22. Offer support to pt. Continue current medications-pt has not refused his regime he reports today. 01/25/22: Discussed with team-Initial planning with Gerry and his to address negative emotions surrounding treatment and outcome so we may help Gerry move toward his recovery in a positive frame of reference. 01/26 no changes to current tx regimen 01/27 no changes to current tx regimen 01/28/22: Medical clearance for tentative ECT on 01/30/22. 01/29/22: Prepare for ECT on 01/30/22. Today, pt continues to decline further education and support 01/30/22: Continue current plan of care 01/31/22: Continue current plan of care, appears improved. I spent minutes with the patient and/or on the patient floor today, greater than?50% of which was spent counseling/coordinating care. Patient educated on: therapeutic strategies Informed Consent: understands and further education needed Reason for contiued inpatient stay Substantial Risk for: inability to function and rapid decompensation
[2022-01-31 18:00] VITALS: BP 130/74; PULSE 69; RESP 18; TEMP 37.4; O2SAT 97
[2022-01-31] MEDS: Ferrous Sulfate 324 MG TABLET.DR PO (20:53)
[2022-02-01] VITALS (10 sets, daily range): BP systolic 89–147; BP diastolic 51–87; PULSE 67–120; RESP 16–19; TEMP 36.3–36.8; O2SAT 94–100
[2022-02-01] MEDS: Omeprazole 40 MG CAPSULE.DR PO (05:32)
--- NOTE | 2022-02-01 08:17 | P.CONAN_ITS ---
[facility] Active Problems Active Problems: All Active Problems (Updated 01/29/22 @ 16:28 by Ethan Guidry MD) Constipation (Acute) Pre-op exam (Acute) Encephalopathy chronic (Acute) Paronychia of finger of left hand (Acute) MDD (major depressive disorder), recurrent, severe, with psychosis (Acute) Routine medical exam (Acute) Past Medical History Medical History (Updated 01/29/22 @ 16:28 by Ethan Guidry MD) Gram-negative bacteremia Family History Family history of problems with anesthesia: No Surgical History History of Problems with Anesthesia: No Social History Social History Household Members: Spouse and Children Household Members Other:: and Three Children ages 11, 13, 15 Housing: House Do you presently have visiting nurse or other home services: No Patient Tobacco Use Status: Never used Tobacco Use of substances other than those prescribed or required for medical reasons: No Currently Displaying Signs/Symptoms of Drug Intoxication Withdrawal: No Have you been hit, kicked, punched, or otherwise hurt by someone within the past year? If so, by whom?: No Do you feel safe in your current relationship?: Yes Is there a partner from a previous relationship who is making you feel unsafe now?: No Are you made to feel afraid or neglected: No Advance Directives: No Advance Directives Information Provided: No Do you have thoughts of harming others: None Do you have a plan to hurt others: No Plan Recently lost weight without trying: No Eating poorly because of decreased appetite: No Nutrition Risks: No Nutritional Risk Poor oral hygiene: No service: No ([employer] [id number]'s) Sexual orientation: Straight/Heterosexual Meds Allergies Allergy/AdvReac Type Severity Reaction Status Date / Time No Known Allergies Allergy Unverified 11/07/21 21:23 Active Medications: Current Medications Acetaminophen (Acetaminophen 325 Mg Tablet) 650 mg PO Q6H PRN PRN Reason: Headache/Pain Mild Scale (1-3) Last Admin: 01/30/22 10:33 Dose: 650 mg Documented by: Al Hydroxide/Mg Hydroxide (Magnesium Hydrox/Alum Hydrox 30 Ml Oral.Susp) 30 ml PO Q6H PRN PRN Reason: Heartburn/Nausea Amantadine HCl (Amantadine Hcl 100 Mg Capsule) 100 mg PO BID ANISHA Last Admin: 01/31/22 20:53 Dose: 100 mg Documented by: Duloxetine HCl (Duloxetine Hcl 30 Mg Capsule.) 30 mg PO DAILY [facility] Last Admin: 01/31/22 08:17 Dose: 30 mg Documented by: Enoxaparin Sodium (Enoxaparin Sodium 40 Mg/0.4 Ml Syringe) 40 mg SUBCUT 2100 [facility] Last Admin: 12/25/21 19:24 Dose: 40 mg Documented by: Ferrous Sulfate (Ferrous Sulfate 324 Mg Tablet.) 324 mg PO BEDTIME [facility] Last Admin: 01/31/22 20:53 Dose: 324 mg Documented by: Hydroxyzine HCl (Hydroxyzine Hcl 25 Mg Tablet) 25 mg PO Q6H PRN PRN Reason: Anxiety Last Admin: 12/16/21 22:28 Dose: 25 mg Documented by: Lactated Ringer's (Lr) 1,000 mls @ 50 mls/hr IVCONT .Q20H ANISHA Ibuprofen (Ibuprofen 800 Mg Tablet) 800 mg PO Q8H PRN PRN Reason: Pain, Mild (Pain Scale 1-3) Loperamide HCl (Loperamide Hcl 2 Mg Capsule) 2 mg PO Q6H PRN PRN Reason: Diarrhea Last Admin: 11/17/21 13:40 Dose: 2 mg Documented by: Magnesium Hydroxide (Milk Of Magnesia 30 Ml Oral.Susp) 30 ml PO DAILY PRN PRN Reason: Constipation Omeprazole (Omeprazole 40 Mg Capsule.) 40 mg PO DAILY@0630 [facility] Last Admin: 02/01/22 05:32 Dose: 40 mg Documented by: Polyethylene Glycol (Polyethylene Glycol 3350 17 Gm Powd.Pack) 17 gm PO DAILY [facility] Last Admin: 01/31/22 08:21 Dose: 17 gm Documented by: Psyllium Hydrophilic Mucilloid (Psyllium Seed 3.4 Gm Powd.Pack) 3.4 gm PO BEDTIME [facility] Last Admin: 01/31/22 20:56 Dose: Not Given Documented by: Risperidone (Risperidone 1 Mg Tablet) 1 mg PO BID [facility] Last Admin: 01/31/22 20:53 Dose: 1 mg Documented by: Sucralfate (Sucralfate 1 Gm Tablet) 1 gm PO TID [facility] Last Admin: 01/31/22 20:53 Dose: 1 gm Documented by: Trazodone HCl (Trazodone Hcl 50 Mg Tablet) 50 mg PO BEDTIME PRN PRN Reason: Insomnia Home Medications Medication Instructions Recorded Confirmed Last Taken Type acetaminophen 500 mg tablet 500 mg PO Q6-8H PRN 12/13/21 12/13/21 Unknown History (Acetaminophen Extra Strength) Exam Exam Date and Time: February 01, 2022816 Height,Weight and Vital Signs: Height 6 ft Weight 88.2 kg Last Vital Signs Temp 97.3 F 02/01/22 06:00 Pulse 67 02/01/22 06:00 Resp 16 02/01/22 06:00 BP 147/84 H 02/01/22 06:00 Pulse Ox 98 02/01/22 06:00 Pertinent Lab Results Pertinent Lab Results: Laboratory Tests 11/08/21 11/08/21 11/08/21 08:30 08:30 08:30 WBC RBC Hgb Hct MCV MCH MCHC RDW Plt Count MPV Immature Gran % (Auto) Neut % (Auto) Lymph % (Auto) [place] % (Auto) Eos % (Auto) Baso % (Auto) Lymph # (Auto) [place] # (Auto) Eos # (Auto) Baso # (Auto) Abs Immat Gran (auto) Absolute Neuts (auto) Absolute Nucleated RBC Nucleated RBC % (auto) ESR PT INR APTT D-Dimer High Sensitivty Sodium 142 Potassium 4.0 Chloride 103 Carbon Dioxide 32 H Anion Gap 11 L BUN 18 H Creatinine 1.13 Estim Creat Clear Calc TNP Estimated GFR > 60 Random Glucose Fasting Glucose 101 H Estimat Average Glucose 103 Hemoglobin A1c % 5.2 Uric Acid Calcium 9.5 Magnesium 2.4 Total Bilirubin 1.1 H AST 16 ALT 33 Alkaline Phosphatase 63 Ammonia Total Creatine Kinase C-Reactive Protein Total Protein 6.1 L Albumin 4.1 Ceruloplasmin Triglycerides 117 Cholesterol 142 LDL Cholesterol, Calc 91 HDL Cholesterol 28 Vitamin B12 619 Folate 7.0 TSH 1.84 Free T4 1.10 Total Testosterone Fr Testosterone Dialys Random Cortisol Urine Color Urine Appearance Urine pH Ur Specific Frost Urine Protein Urine Glucose (UA) Urine Ketones Urine Blood Urine Nitrite Ur Leukocyte Esterase CSF Tube Number CSF Volume CSF Appearance CSF Color CSF WBC CSF RBC CSF Lymphocytes CSF Appearance (b) CSF Glucose CSF Total Protein CSF Lyme IgG (Immblot) CSF Lyme IgG Bands Det CSF Lyme IgM (Immblot) CSF Lyme IgM Bands Det CSF C.neoform/gat PCR CSF CMV DNA (PCR) CSF Enterovirus (PCR) CSF E. coli K1 (PCR) CSF H. influenzae (PCR) CSF HSV I (PCR) CSF HSV II (PCR) CSF L.monocytogenes PCR CSF N. meningitidis PCR CSF Parechovirus (PCR) CSF S. agalactiae (PCR) CSF S. pneumoniae (PCR) CSF VZV (PCR) Ur Arsenic 24 Hour Urine Cadmium 24 Hour Serum Copper Ur Total Volume Ur Copper 24 Hr Urine Lead 24 Hour Urine Mercury 24 Hour Zinc Rheumatoid Factor TRENT Screen TRENT Titer TRENT Titer 2 TRENT Titer 3 TRENT Pattern TRENT Pattern 2 TRENT Pattern 3 Anti-ds DNA Titer (Crith) Anti-ds DNA (Crithidia) T.pallidum Ab (EIA) Lyme Screen IgG & IgM Lyme Progressive Test COVID-19 ([facility]) COVID-19 Clin Com HIV 1&2 Ab/P24 Ag 4thGn HHV-6 (PCR) Ref Lab Test Result 11/08/21 11/08/21 11/19/21 08:30 08:30 13:21 WBC 6.8 4.6 L RBC 4.71 4.53 L Hgb 13.7 L 13.0 L Hct 40.8 L 38.8 L MCV 86.6 85.7 MCH 29.1 28.7 MCHC 33.6 33.5 RDW 14.4 14.1 Plt Count 239 199 MPV 9.5 9.6 Immature Gran % (Auto) 0.1 0.2 Neut % (Auto) 64.8 73.1 H Lymph % (Auto) 21.7 16.7 L [place] % (Auto) 9.5 7.2 Eos % (Auto) 3.5 2.4 Baso % (Auto) 0.4 0.4 Lymph # (Auto) 1.5 0.8 L [place] # (Auto) 0.7 0.3 Eos # (Auto) 0.2 0.1 Baso # (Auto) 0.0 0.0 Abs Immat Gran (auto) 0.01 0.01 Absolute Neuts (auto) 4.4 3.3 Absolute Nucleated RBC 0.000 0.000 Nucleated RBC % (auto) 0.0 0.0 ESR PT INR APTT D-Dimer High Sensitivty 165 Sodium Potassium Chloride Carbon Dioxide Anion Gap BUN Creatinine Estim Creat Clear Calc Estimated GFR Random Glucose Fasting Glucose Estimat Average Glucose Hemoglobin A1c % Uric Acid Calcium Magnesium Total Bilirubin AST ALT Alkaline Phosphatase Ammonia Total Creatine Kinase C-Reactive Protein Total Protein Albumin Ceruloplasmin Triglycerides Cholesterol LDL Cholesterol, Calc HDL Cholesterol Vitamin B12 Folate TSH Free T4 Total Testosterone Fr Testosterone Dialys Random Cortisol Urine Color Urine Appearance Urine pH Ur Specific Frost Urine Protein Urine Glucose (UA) Urine Ketones Urine Blood Urine Nitrite Ur Leukocyte Esterase CSF Tube Number CSF Volume CSF Appearance CSF Color CSF WBC CSF RBC CSF Lymphocytes CSF Appearance (b) CSF Glucose CSF Total Protein CSF Lyme IgG (Immblot) CSF Lyme IgG Bands Det CSF Lyme IgM (Immblot) CSF Lyme IgM Bands Det CSF C.neoform/gat PCR CSF CMV DNA (PCR) CSF Enterovirus (PCR) CSF E. coli K1 (PCR) CSF H. influenzae (PCR) CSF HSV I (PCR) CSF HSV II (PCR) CSF L.monocytogenes PCR CSF N. meningitidis PCR CSF Parechovirus (PCR) CSF S. agalactiae (PCR) CSF S. pneumoniae (PCR) CSF VZV (PCR) Ur Arsenic 24 Hour Urine Cadmium 24 Hour Serum Copper Ur Total Volume Ur Copper 24 Hr Urine Lead 24 Hour Urine Mercury 24 Hour Zinc Rheumatoid Factor TRENT Screen TRENT Titer TRENT Titer 2 TRENT Titer 3 TRENT Pattern TRENT Pattern 2 TRENT Pattern 3 Anti-ds DNA Titer (Crith) Anti-ds DNA (Crithidia) T.pallidum Ab (EIA) Lyme Screen IgG & IgM Lyme Progressive Test COVID-19 ([facility]) COVID-19 Clin Com HIV 1&2 Ab/P24 Ag 4thGn HHV-6 (PCR) Ref Lab Test Result 11/19/21 11/22/21 12/14/21 13:21 07:54 08:22 WBC 5.4 RBC 4.27 L Hgb 12.5 L Hct 37.2 L MCV 87.1 MCH 29.3 MCHC 33.6 RDW 14.6 Plt Count 223 MPV 8.6 L Immature Gran % (Auto) 0.4 Neut % (Auto) 73.7 H Lymph % (Auto) 15.1 L [place] % (Auto) 7.6 Eos % (Auto) 2.6 Baso % (Auto) 0.6 Lymph # (Auto) 0.8 L [place] # (Auto) 0.4 Eos # (Auto) 0.1 Baso # (Auto) 0.0 Abs Immat Gran (auto) 0.02 Absolute Neuts (auto) 4.0 Absolute Nucleated RBC 0.000 Nucleated RBC % (auto) 0.0 ESR PT INR APTT D-Dimer High Sensitivty Sodium 140 139 Potassium 4.1 3.7 Chloride 103 101 Carbon Dioxide 27 32 H Anion Gap 14 10 L BUN 13 18 H Creatinine 1.00 1.11 Estim Creat Clear Calc 89.4 80.5 Estimated GFR > 60 > 60 Random Glucose 91 91 Fasting Glucose Estimat Average Glucose Hemoglobin A1c % Uric Acid Calcium 9.3 9.0 Magnesium Total Bilirubin 0.6 AST 16 ALT 22 Alkaline Phosphatase 59 Ammonia Total Creatine Kinase C-Reactive Protein Total Protein 5.8 L Albumin 3.8 Ceruloplasmin Triglycerides Cholesterol LDL Cholesterol, Calc HDL Cholesterol Vitamin B12 Folate TSH Free T4 Total Testosterone Fr Testosterone Dialys Random Cortisol Urine Color Urine Appearance Urine pH Ur Specific Frost Urine Protein Urine Glucose (UA) Urine Ketones Urine Blood Urine Nitrite Ur Leukocyte Esterase CSF Tube Number CSF Volume CSF Appearance CSF Color CSF WBC CSF RBC CSF Lymphocytes CSF Appearance (b) CSF Glucose CSF Total Protein CSF Lyme IgG (Immblot) CSF Lyme IgG Bands Det CSF Lyme IgM (Immblot) CSF Lyme IgM Bands Det CSF C.neoform/gat PCR CSF CMV DNA (PCR) CSF Enterovirus (PCR) CSF E. coli K1 (PCR) CSF H. influenzae (PCR) CSF HSV I (PCR) CSF HSV II (PCR) CSF L.monocytogenes PCR CSF N. meningitidis PCR CSF Parechovirus (PCR) CSF S. agalactiae (PCR) CSF S. pneumoniae (PCR) CSF VZV (PCR) Ur Arsenic 24 Hour Urine Cadmium 24 Hour Serum Copper Ur Total Volume Ur Copper 24 Hr Urine Lead 24 Hour Urine Mercury 24 Hour Zinc Rheumatoid Factor TRENT Screen TRENT Titer TRENT Titer 2 TRENT Titer 3 TRENT Pattern TRENT Pattern 2 TRENT Pattern 3 Anti-ds DNA Titer (Crith) Anti-ds DNA (Crithidia) T.pallidum Ab (EIA) Lyme Screen IgG & IgM Lyme Progressive Test COVID-19 ([facility]) COVID-19 Clin Com HIV 1&2 Ab/P24 Ag 4thGn HHV-6 (PCR) Ref Lab Test Result 12/14/21 12/14/21 12/17/21 08:22 08:23 08:32 WBC RBC Hgb Hct MCV MCH MCHC RDW Plt Count MPV Immature Gran % (Auto) Neut % (Auto) Lymph % (Auto) [place] % (Auto) Eos % (Auto) Baso % (Auto) Lymph # (Auto) [place] # (Auto) Eos # (Auto) Baso # (Auto) Abs Immat Gran (auto) Absolute Neuts (auto) Absolute Nucleated RBC Nucleated RBC % (auto) ESR 9 PT INR APTT D-Dimer High Sensitivty Sodium 137 Potassium 4.5 D Chloride 101 Carbon Dioxide 29 Anion Gap 12 BUN 12 Creatinine 0.94 Estim Creat Clear Calc 104.9 Estimated GFR > 60 Random Glucose 93 Fasting Glucose Estimat Average Glucose Hemoglobin A1c % Uric Acid Calcium 9.2 Magnesium Total Bilirubin 0.4 AST 13 ALT 21 Alkaline Phosphatase 74 D Ammonia Total Creatine Kinase C-Reactive Protein Total Protein 5.9 L Albumin 3.8 Ceruloplasmin Triglycerides Cholesterol LDL Cholesterol, Calc HDL Cholesterol Vitamin B12 377 Folate 7.6 TSH 1.80 Free T4 Total Testosterone Fr Testosterone Dialys Random Cortisol Urine Color Urine Appearance Urine pH Ur Specific Frost Urine Protein Urine Glucose (UA) Urine Ketones Urine Blood Urine Nitrite Ur Leukocyte Esterase CSF Tube Number CSF Volume CSF Appearance CSF Color CSF WBC CSF RBC CSF Lymphocytes CSF Appearance (b) CSF Glucose CSF Total Protein CSF Lyme IgG (Immblot) CSF Lyme IgG Bands Det CSF Lyme IgM (Immblot) CSF Lyme IgM Bands Det CSF C.neoform/gat PCR CSF CMV DNA (PCR) CSF Enterovirus (PCR) CSF E. coli K1 (PCR) CSF H. influenzae (PCR) CSF HSV I (PCR) CSF HSV II (PCR) CSF L.monocytogenes PCR CSF N. meningitidis PCR CSF Parechovirus (PCR) CSF S. agalactiae (PCR) CSF S. pneumoniae (PCR) CSF VZV (PCR) Ur Arsenic 24 Hour Urine Cadmium 24 Hour Serum Copper Ur Total Volume Ur Copper 24 Hr Urine Lead 24 Hour Urine Mercury 24 Hour Zinc Rheumatoid Factor TRENT Screen TRENT Titer TRENT Titer 2 TRENT Titer 3 TRENT Pattern TRENT Pattern 2 TRENT Pattern 3 Anti-ds DNA Titer (Crith) Anti-ds DNA (Crithidia) T.pallidum Ab (EIA) Lyme Screen IgG & IgM Lyme Progressive Test COVID-19 ([facility]) COVID-19 Clin Com HIV 1&2 Ab/P24 Ag 4thGn HHV-6 (PCR) Ref Lab Test Result 12/17/21 12/17/21 12/17/21 08:32 08:32 08:32 WBC RBC Hgb Hct MCV MCH MCHC RDW Plt Count MPV Immature Gran % (Auto) Neut % (Auto) Lymph % (Auto) [place] % (Auto) Eos % (Auto) Baso % (Auto) Lymph # (Auto) [place] # (Auto) Eos # (Auto) Baso # (Auto) Abs Immat Gran (auto) Absolute Neuts (auto) Absolute Nucleated RBC Nucleated RBC % (auto) ESR PT INR APTT D-Dimer High Sensitivty Sodium Potassium Chloride Carbon Dioxide Anion Gap BUN Creatinine Estim Creat Clear Calc Estimated GFR Random Glucose Fasting Glucose Estimat Average Glucose Hemoglobin A1c % Uric Acid Calcium Magnesium Total Bilirubin AST ALT Alkaline Phosphatase Ammonia Total Creatine Kinase C-Reactive Protein 2.10 H Total Protein Albumin Ceruloplasmin Triglycerides Cholesterol LDL Cholesterol, Calc HDL Cholesterol Vitamin B12 Folate TSH Free T4 Total Testosterone Fr Testosterone Dialys Random Cortisol Urine Color Urine Appearance Urine pH Ur Specific Frost Urine Protein Urine Glucose (UA) Urine Ketones Urine Blood Urine Nitrite Ur Leukocyte Esterase CSF Tube Number CSF Volume CSF Appearance CSF Color CSF WBC CSF RBC CSF Lymphocytes CSF Appearance (b) CSF Glucose CSF Total Protein CSF Lyme IgG (Immblot) CSF Lyme IgG Bands Det CSF Lyme IgM (Immblot) CSF Lyme IgM Bands Det CSF C.neoform/gat PCR CSF CMV DNA (PCR) CSF Enterovirus (PCR) CSF E. coli K1 (PCR) CSF H. influenzae (PCR) CSF HSV I (PCR) CSF HSV II (PCR) CSF L.monocytogenes PCR CSF N. meningitidis PCR CSF Parechovirus (PCR) CSF S. agalactiae (PCR) CSF S. pneumoniae (PCR) CSF VZV (PCR) Ur Arsenic 24 Hour Urine Cadmium 24 Hour Serum Copper Ur Total Volume Ur Copper 24 Hr Urine Lead 24 Hour Urine Mercury 24 Hour Zinc Rheumatoid Factor TRENT Screen NEGATIVE TRENT Titer TNP TRENT Titer 2 TNP TRENT Titer 3 TNP TRENT Pattern TNP TRENT Pattern 2 TNP TRENT Pattern 3 TNP Anti-ds DNA Titer (Crith) Anti-ds DNA (Crithidia) T.pallidum Ab (EIA) Nonreactive Lyme Screen IgG & IgM Lyme Progressive Test COVID-19 ([facility]) COVID-19 Clin Com HIV 1&2 Ab/P24 Ag 4thGn HHV-6 (PCR) Ref Lab Test Result 12/17/21 12/17/21 12/22/21 08:32 08:32 14:57 WBC 6.8 RBC 4.29 L Hgb 12.6 L Hct 37.5 L MCV 87.4 MCH 29.4 MCHC 33.6 RDW 14.0 Plt Count 274 MPV 8.7 L Immature Gran % (Auto) 0.4 Neut % (Auto) 74.9 H Lymph % (Auto) 14.5 L [place] % (Auto) 8.5 Eos % (Auto) 1.3 Baso % (Auto) 0.4 Lymph # (Auto) 1.0 L [place] # (Auto) 0.6 Eos # (Auto) 0.1 Baso # (Auto) 0.0 Abs Immat Gran (auto) 0.03 Absolute Neuts (auto) 5.1 Absolute Nucleated RBC 0.000 Nucleated RBC % (auto) 0.0 ESR PT INR APTT D-Dimer High Sensitivty Sodium Potassium Chloride Carbon Dioxide Anion Gap BUN Creatinine Estim Creat Clear Calc Estimated GFR Random Glucose Fasting Glucose Estimat Average Glucose Hemoglobin A1c % Uric Acid Calcium Magnesium Total Bilirubin AST ALT Alkaline Phosphatase Ammonia Total Creatine Kinase C-Reactive Protein Total Protein Albumin Ceruloplasmin Triglycerides Cholesterol LDL Cholesterol, Calc HDL Cholesterol Vitamin B12 Folate TSH Free T4 Total Testosterone 474 Fr Testosterone Dialys 38.4 Random Cortisol Urine Color Urine Appearance Urine pH Ur Specific Frost Urine Protein Urine Glucose (UA) Urine Ketones Urine Blood Urine Nitrite Ur Leukocyte Esterase CSF Tube Number CSF Volume CSF Appearance CSF Color CSF WBC CSF RBC CSF Lymphocytes CSF Appearance (b) CSF Glucose CSF Total Protein CSF Lyme IgG (Immblot) CSF Lyme IgG Bands Det CSF Lyme IgM (Immblot) CSF Lyme IgM Bands Det CSF C.neoform/gat PCR CSF CMV DNA (PCR) CSF Enterovirus (PCR) CSF E. coli K1 (PCR) CSF H. influenzae (PCR) CSF HSV I (PCR) CSF HSV II (PCR) CSF L.monocytogenes PCR CSF N. meningitidis PCR CSF Parechovirus (PCR) CSF S. agalactiae (PCR) CSF S. pneumoniae (PCR) CSF VZV (PCR) Ur Arsenic 24 Hour Urine Cadmium 24 Hour Serum Copper Ur Total Volume Ur Copper 24 Hr Urine Lead 24 Hour Urine Mercury 24 Hour Zinc Rheumatoid Factor TRENT Screen TRENT Titer TRENT Titer 2 TRENT Titer 3 TRENT Pattern TRENT Pattern 2 TRENT Pattern 3 Anti-ds DNA Titer (Crith) Anti-ds DNA (Crithidia) T.pallidum Ab (EIA) Lyme Screen IgG & IgM Lyme Progressive Test COVID-19 ([facility]) COVID-19 Clin Com HIV 1&2 Ab/P24 Ag 4thGn Nonreactive HHV-6 (PCR) Ref Lab Test Result 12/22/21 12/22/21 12/25/21 14:57 18:18 08:08 WBC RBC Hgb Hct MCV MCH MCHC RDW Plt Count MPV Immature Gran % (Auto) Neut % (Auto) Lymph % (Auto) [place] % (Auto) Eos % (Auto) Baso % (Auto) Lymph # (Auto) [place] # (Auto) Eos # (Auto) Baso # (Auto) Abs Immat Gran (auto) Absolute Neuts (auto) Absolute Nucleated RBC Nucleated RBC % (auto) ESR PT INR APTT D-Dimer High Sensitivty Sodium 135 Potassium 4.0 Chloride 98 Carbon Dioxide 30 H Anion Gap 11 L BUN 14 Creatinine 0.98 Estim Creat Clear Calc 100.6 Estimated GFR > 60 Random Glucose 114 Fasting Glucose Estimat Average Glucose Hemoglobin A1c % Uric Acid 4.2 Calcium 9.4 Magnesium Total Bilirubin 0.4 AST 13 ALT 24 Alkaline Phosphatase 91 D Ammonia Total Creatine Kinase C-Reactive Protein Total Protein 6.1 L Albumin 4.1 Ceruloplasmin Triglycerides Cholesterol LDL Cholesterol, Calc HDL Cholesterol Vitamin B12 Folate TSH Free T4 Total Testosterone Fr Testosterone Dialys Random Cortisol Urine Color YELLOW Urine Appearance CLEAR Urine pH 7.0 Ur Specific Frost 1.015 Urine Protein NEG Urine Glucose (UA) NEG Urine Ketones NEG Urine Blood NEG Urine Nitrite NEG Ur Leukocyte Esterase NEG CSF Tube Number CSF Volume CSF Appearance CSF Color CSF WBC CSF RBC CSF Lymphocytes CSF Appearance (b) CSF Glucose CSF Total Protein CSF Lyme IgG (Immblot) CSF Lyme IgG Bands Det CSF Lyme IgM (Immblot) CSF Lyme IgM Bands Det CSF C.neoform/gat PCR CSF CMV DNA (PCR) CSF Enterovirus (PCR) CSF E. coli K1 (PCR) CSF H. influenzae (PCR) CSF HSV I (PCR) CSF HSV II (PCR) CSF L.monocytogenes PCR CSF N. meningitidis PCR CSF Parechovirus (PCR) CSF S. agalactiae (PCR) CSF S. pneumoniae (PCR) CSF VZV (PCR) Ur Arsenic 24 Hour Urine Cadmium 24 Hour Serum Copper Ur Total Volume Ur Copper 24 Hr Urine Lead 24 Hour Urine Mercury 24 Hour Zinc Rheumatoid Factor TRENT Screen TRENT Titer TRENT Titer 2 TRENT Titer 3 TRENT Pattern TRENT Pattern 2 TRENT Pattern 3 Anti-ds DNA Titer (Crith) Anti-ds DNA (Crithidia) T.pallidum Ab (EIA) Lyme Screen IgG & IgM Lyme Progressive Test COVID-19 ([facility]) COVID-19 Clin Com HIV 1&2 Ab/P24 Ag 4thGn HHV-6 (PCR) Ref Lab Test Result 12/27/21 12/27/21 12/27/21 08:00 08:00 08:11 WBC RBC Hgb Hct MCV MCH MCHC RDW Plt Count MPV Immature Gran % (Auto) Neut % (Auto) Lymph % (Auto) [place] % (Auto) Eos % (Auto) Baso % (Auto) Lymph # (Auto) [place] # (Auto) Eos # (Auto) Baso # (Auto) Abs Immat Gran (auto) Absolute Neuts (auto) Absolute Nucleated RBC Nucleated RBC % (auto) ESR PT 12.1 INR 1.1 APTT 38.5 H D-Dimer High Sensitivty Sodium Potassium Chloride Carbon Dioxide Anion Gap BUN Creatinine Estim Creat Clear Calc Estimated GFR Random Glucose Fasting Glucose Estimat Average Glucose Hemoglobin A1c % Uric Acid Calcium Magnesium Total Bilirubin AST ALT Alkaline Phosphatase Ammonia Total Creatine Kinase C-Reactive Protein Total Protein Albumin Ceruloplasmin Triglycerides Cholesterol LDL Cholesterol, Calc HDL Cholesterol Vitamin B12 Folate TSH Free T4 Total Testosterone Fr Testosterone Dialys Random Cortisol Urine Color Urine Appearance Urine pH Ur Specific Frost Urine Protein Urine Glucose (UA) Urine Ketones Urine Blood Urine Nitrite Ur Leukocyte Esterase CSF Tube Number CSF Volume CSF Appearance CSF Color CSF WBC CSF RBC CSF Lymphocytes CSF Appearance (b) CSF Glucose CSF Total Protein CSF Lyme IgG (Immblot) CSF Lyme IgG Bands Det CSF Lyme IgM (Immblot) CSF Lyme IgM Bands Det CSF C.neoform/gat PCR CSF CMV DNA (PCR) CSF Enterovirus (PCR) CSF E. coli K1 (PCR) CSF H. influenzae (PCR) CSF HSV I (PCR) CSF HSV II (PCR) CSF L.monocytogenes PCR CSF N. meningitidis PCR CSF Parechovirus (PCR) CSF S. agalactiae (PCR) CSF S. pneumoniae (PCR) CSF VZV (PCR) Ur Arsenic 24 Hour <10 Urine Cadmium 24 Hour <0.5 Serum Copper Ur Total Volume 1300 Ur Copper 24 Hr 9 L Urine Lead 24 Hour <10 Urine Mercury 24 Hour <4 Zinc Rheumatoid Factor TRENT Screen TRENT Titer TRENT Titer 2 TRENT Titer 3 TRENT Pattern TRENT Pattern 2 TRENT Pattern 3 Anti-ds DNA Titer (Crith) Anti-ds DNA (Crithidia) T.pallidum Ab (EIA) Lyme Screen IgG & IgM Lyme Progressive Test COVID-19 ([facility]) COVID-19 Clin Com HIV 1&2 Ab/P24 Ag 4thGn HHV-6 (PCR) Ref Lab Test Result 12/27/21 12/27/21 12/27/21 08:11 08:11 08:11 WBC RBC Hgb Hct MCV MCH MCHC RDW Plt Count 244 MPV Immature Gran % (Auto) Neut % (Auto) Lymph % (Auto) [place] % (Auto) Eos % (Auto) Baso % (Auto) Lymph # (Auto) [place] # (Auto) Eos # (Auto) Baso # (Auto) Abs Immat Gran (auto) Absolute Neuts (auto) Absolute Nucleated RBC Nucleated RBC % (auto) ESR 13 PT INR APTT D-Dimer High Sensitivty Sodium Potassium Chloride Carbon Dioxide Anion Gap BUN Creatinine Estim Creat Clear Calc Estimated GFR Random Glucose Fasting Glucose Estimat Average Glucose Hemoglobin A1c % Uric Acid Calcium Magnesium Total Bilirubin AST ALT Alkaline Phosphatase Ammonia Total Creatine Kinase 38 C-Reactive Protein Total Protein Albumin Ceruloplasmin Triglycerides Cholesterol LDL Cholesterol, Calc HDL Cholesterol Vitamin B12 Folate TSH Free T4 Total Testosterone Fr Testosterone Dialys Random Cortisol Urine Color Urine Appearance Urine pH Ur Specific Frost Urine Protein Urine Glucose (UA) Urine Ketones Urine Blood Urine Nitrite Ur Leukocyte Esterase CSF Tube Number CSF Volume CSF Appearance CSF Color CSF WBC CSF RBC CSF Lymphocytes CSF Appearance (b) CSF Glucose CSF Total Protein CSF Lyme IgG (Immblot) CSF Lyme IgG Bands Det CSF Lyme IgM (Immblot) CSF Lyme IgM Bands Det CSF C.neoform/gat PCR CSF CMV DNA (PCR) CSF Enterovirus (PCR) CSF E. coli K1 (PCR) CSF H. influenzae (PCR) CSF HSV I (PCR) CSF HSV II (PCR) CSF L.monocytogenes PCR CSF N. meningitidis PCR CSF Parechovirus (PCR) CSF S. agalactiae (PCR) CSF S. pneumoniae (PCR) CSF VZV (PCR) Ur Arsenic 24 Hour Urine Cadmium 24 Hour Serum Copper Ur Total Volume Ur Copper 24 Hr Urine Lead 24 Hour Urine Mercury 24 Hour Zinc Rheumatoid Factor < 15.0 TRENT Screen TRENT Titer TRENT Titer 2 TRENT Titer 3 TRENT Pattern TRENT Pattern 2 TRENT Pattern 3 Anti-ds DNA Titer (Crith) Anti-ds DNA (Crithidia) T.pallidum Ab (EIA) Lyme Screen IgG & IgM Lyme Progressive Test COVID-19 ([facility]) COVID-19 Clin Com HIV 1&2 Ab/P24 Ag 4thGn HHV-6 (PCR) Ref Lab Test Result 12/27/21 12/27/21 12/27/21 08:11 08:11 08:11 WBC RBC Hgb Hct MCV MCH MCHC RDW Plt Count MPV Immature Gran % (Auto) Neut % (Auto) Lymph % (Auto) [place] % (Auto) Eos % (Auto) Baso % (Auto) Lymph # (Auto) [place] # (Auto) Eos # (Auto) Baso # (Auto) Abs Immat Gran (auto) Absolute Neuts (auto) Absolute Nucleated RBC Nucleated RBC % (auto) ESR PT INR APTT D-Dimer High Sensitivty Sodium Potassium Chloride Carbon Dioxide Anion Gap BUN Creatinine Estim Creat Clear Calc Estimated GFR Random Glucose Fasting Glucose Estimat Average Glucose Hemoglobin A1c % Uric Acid Calcium Magnesium Total Bilirubin AST ALT Alkaline Phosphatase Ammonia Total Creatine Kinase C-Reactive Protein Total Protein Albumin Ceruloplasmin 34 Triglycerides Cholesterol LDL Cholesterol, Calc HDL Cholesterol Vitamin B12 Folate TSH Free T4 Total Testosterone Fr Testosterone Dialys Random Cortisol Urine Color Urine Appearance Urine pH Ur Specific Frost Urine Protein Urine Glucose (UA) Urine Ketones Urine Blood Urine Nitrite Ur Leukocyte Esterase CSF Tube Number CSF Volume CSF Appearance CSF Color CSF WBC CSF RBC CSF Lymphocytes CSF Appearance (b) CSF Glucose CSF Total Protein CSF Lyme IgG (Immblot) CSF Lyme IgG Bands Det CSF Lyme IgM (Immblot) CSF Lyme IgM Bands Det CSF C.neoform/gat PCR CSF CMV DNA (PCR) CSF Enterovirus (PCR) CSF E. coli K1 (PCR) CSF H. influenzae (PCR) CSF HSV I (PCR) CSF HSV II (PCR) CSF L.monocytogenes PCR CSF N. meningitidis PCR CSF Parechovirus (PCR) CSF S. agalactiae (PCR) CSF S. pneumoniae (PCR) CSF VZV (PCR) Ur Arsenic 24 Hour Urine Cadmium 24 Hour Serum Copper Ur Total Volume Ur Copper 24 Hr Urine Lead 24 Hour Urine Mercury 24 Hour Zinc Rheumatoid Factor TRENT Screen TRENT Titer TRENT Titer 2 TRENT Titer 3 TRENT Pattern TRENT Pattern 2 TRENT Pattern 3 Anti-ds DNA Titer (Crith) TNP Anti-ds DNA (Crithidia) Negative T.pallidum Ab (EIA) Lyme Screen IgG & IgM <0.90 Lyme Progressive Test TNP COVID-19 ([facility]) COVID-19 Clin Com HIV 1&2 Ab/P24 Ag 4thGn HHV-6 (PCR) Ref Lab Test Result 12/27/21 12/27/21 12/27/21 08:11 13:50 13:50 WBC RBC Hgb Hct MCV MCH MCHC RDW Plt Count MPV Immature Gran % (Auto) Neut % (Auto) Lymph % (Auto) [place] % (Auto) Eos % (Auto) Baso % (Auto) Lymph # (Auto) [place] # (Auto) Eos # (Auto) Baso # (Auto) Abs Immat Gran (auto) Absolute Neuts (auto) Absolute Nucleated RBC Nucleated RBC % (auto) ESR PT INR APTT D-Dimer High Sensitivty Sodium Potassium Chloride Carbon Dioxide Anion Gap BUN Creatinine Estim Creat Clear Calc Estimated GFR Random Glucose Fasting Glucose Estimat Average Glucose Hemoglobin A1c % Uric Acid Calcium Magnesium Total Bilirubin AST ALT Alkaline Phosphatase Ammonia Total Creatine Kinase C-Reactive Protein Total Protein Albumin Ceruloplasmin Triglycerides Cholesterol LDL Cholesterol, Calc HDL Cholesterol Vitamin B12 Folate TSH Free T4 Total Testosterone Fr Testosterone Dialys Random Cortisol Urine Color Urine Appearance Urine pH Ur Specific Frost Urine Protein Urine Glucose (UA) Urine Ketones Urine Blood Urine Nitrite Ur Leukocyte Esterase CSF Tube Number CSF Volume CSF Appearance CSF Color CSF WBC CSF RBC CSF Lymphocytes CSF Appearance (b) CSF Glucose CSF Total Protein CSF Lyme IgG (Immblot) CSF Lyme IgG Bands Det CSF Lyme IgM (Immblot) CSF Lyme IgM Bands Det CSF C.neoform/gat PCR Not Detected CSF CMV DNA (PCR) Not Detected CSF Enterovirus (PCR) Not Detected CSF E. coli K1 (PCR) Not Detected CSF H. influenzae (PCR) Not Detected CSF HSV I (PCR) Not Detected CSF HSV II (PCR) Not Detected CSF L.monocytogenes PCR Not Detected CSF N. meningitidis PCR Not Detected CSF Parechovirus (PCR) Not Detected CSF S. agalactiae (PCR) Not Detected CSF S. pneumoniae (PCR) Not Detected CSF VZV (PCR) Not Detected Ur Arsenic 24 Hour Urine Cadmium 24 Hour Serum Copper 154 Ur Total Volume Ur Copper 24 Hr Urine Lead 24 Hour Urine Mercury 24 Hour Zinc Rheumatoid Factor TRENT Screen TRENT Titer TRENT Titer 2 TRENT Titer 3 TRENT Pattern TRENT Pattern 2 TRENT Pattern 3 Anti-ds DNA Titer (Crith) Anti-ds DNA (Crithidia) T.pallidum Ab (EIA) Lyme Screen IgG & IgM Lyme Progressive Test COVID-19 ([facility]) COVID-19 Clin Com HIV 1&2 Ab/P24 Ag 4thGn HHV-6 (PCR) Not Detected Ref Lab Test Result See Note 12/27/21 12/27/2112/27/22 13:50 13:50 13:50 WBC RBC Hgb Hct MCV MCH MCHC RDW Plt Count MPV Immature Gran % (Auto) Neut % (Auto) Lymph % (Auto) [place] % (Auto) Eos % (Auto) Baso % (Auto) Lymph # (Auto) [place] # (Auto) Eos # (Auto) Baso # (Auto) Abs Immat Gran (auto) Absolute Neuts (auto) Absolute Nucleated RBC Nucleated RBC % (auto) ESR PT INR APTT D-Dimer High Sensitivty Sodium Potassium Chloride Carbon Dioxide Anion Gap BUN Creatinine Estim Creat Clear Calc Estimated GFR Random Glucose Fasting Glucose Estimat Average Glucose Hemoglobin A1c % Uric Acid Calcium Magnesium Total Bilirubin AST ALT Alkaline Phosphatase Ammonia Total Creatine Kinase C-Reactive Protein Total Protein Albumin Ceruloplasmin Triglycerides Cholesterol LDL Cholesterol, Calc HDL Cholesterol Vitamin B12 Folate TSH Free T4 Total Testosterone Fr Testosterone Dialys Random Cortisol Urine Color Urine Appearance Urine pH Ur Specific Frost Urine Protein Urine Glucose (UA) Urine Ketones Urine Blood Urine Nitrite Ur Leukocyte Esterase CSF Tube Number 1 4 CSF Volume 4.0 CSF Appearance CLEAR CSF Color COLORLESS CSF WBC 1 CSF RBC 0 CSF Lymphocytes 100 CSF Appearance (b) Clear, Colorless CSF Glucose 57 CSF Total Protein 39.8 CSF Lyme IgG (Immblot) NO BANDS DETECTED CSF Lyme IgG Bands Det TNP CSF Lyme IgM (Immblot) NO BANDS DETECTED CSF Lyme IgM Bands Det TNP CSF C.neoform/gat PCR CSF CMV DNA (PCR) CSF Enterovirus (PCR) CSF E. coli K1 (PCR) CSF H. influenzae (PCR) CSF HSV I (PCR) CSF HSV II (PCR) CSF L.monocytogenes PCR CSF N. meningitidis PCR CSF Parechovirus (PCR) CSF S. agalactiae (PCR) CSF S. pneumoniae (PCR) CSF VZV (PCR) Ur Arsenic 24 Hour Urine Cadmium 24 Hour Serum Copper Ur Total Volume Ur Copper 24 Hr Urine Lead 24 Hour Urine Mercury 24 Hour Zinc Rheumatoid Factor TRENT Screen TRENT Titer TRENT Titer 2 TRENT Titer 3 TRENT Pattern TRENT Pattern 2 TRENT Pattern 3 Anti-ds DNA Titer (Crith) Anti-ds DNA (Crithidia) T.pallidum Ab (EIA) Lyme Screen IgG & IgM Lyme Progressive Test COVID-19 ([facility]) COVID-19 Clin Com HIV 1&2 Ab/P24 Ag 4thGn HHV-6 (PCR) Ref Lab Test Result 12/29/21 12/29/21 01/04/22 07:18 07:18 08:12 WBC RBC Hgb Hct MCV MCH MCHC RDW Plt Count MPV Immature Gran % (Auto) Neut % (Auto) Lymph % (Auto) [place] % (Auto) Eos % (Auto) Baso % (Auto) Lymph # (Auto) [place] # (Auto) Eos # (Auto) Baso # (Auto) Abs Immat Gran (auto) Absolute Neuts (auto) Absolute Nucleated RBC Nucleated RBC % (auto) ESR PT INR APTT D-Dimer High Sensitivty Sodium Potassium Chloride Carbon Dioxide Anion Gap BUN Creatinine Estim Creat Clear Calc Estimated GFR Random Glucose Fasting Glucose Estimat Average Glucose Hemoglobin A1c % Uric Acid Calcium Magnesium Total Bilirubin AST ALT Alkaline Phosphatase Ammonia 26 Total Creatine Kinase C-Reactive Protein Total Protein Albumin 3.7 Ceruloplasmin Triglycerides Cholesterol LDL Cholesterol, Calc HDL Cholesterol Vitamin B12 Folate TSH Free T4 Total Testosterone Fr Testosterone Dialys Random Cortisol 18.3 Urine Color Urine Appearance Urine pH Ur Specific Frost Urine Protein Urine Glucose (UA) Urine Ketones Urine Blood Urine Nitrite Ur Leukocyte Esterase CSF Tube Number CSF Volume CSF Appearance CSF Color CSF WBC CSF RBC CSF Lymphocytes CSF Appearance (b) CSF Glucose CSF Total Protein CSF Lyme IgG (Immblot) CSF Lyme IgG Bands Det CSF Lyme IgM (Immblot) CSF Lyme IgM Bands Det CSF C.neoform/gat PCR CSF CMV DNA (PCR) CSF Enterovirus (PCR) CSF E. coli K1 (PCR) CSF H. influenzae (PCR) CSF HSV I (PCR) CSF HSV II (PCR) CSF L.monocytogenes PCR CSF N. meningitidis PCR CSF Parechovirus (PCR) CSF S. agalactiae (PCR) CSF S. pneumoniae (PCR) CSF VZV (PCR) Ur Arsenic 24 Hour Urine Cadmium 24 Hour Serum Copper Ur Total Volume Ur Copper 24 Hr Urine Lead 24 Hour Urine Mercury 24 Hour Zinc Rheumatoid Factor TRENT Screen TRENT Titer TRENT Titer 2 TRENT Titer 3 TRENT Pattern TRENT Pattern 2 TRENT Pattern 3 Anti-ds DNA Titer (Crith) Anti-ds DNA (Crithidia) T.pallidum Ab (EIA) Lyme Screen IgG & IgM Lyme Progressive Test COVID-19 ([facility]) COVID-19 Clin Com HIV 1&2 Ab/P24 Ag 4thGn HHV-6 (PCR) Ref Lab Test Result 01/04/22 01/28/22 01/28/22 08:12 11:08 11:08 WBC 4.0 L RBC 4.84 Hgb 13.6 L Hct 41.8 L MCV 86.4 MCH 28.1 MCHC 32.5 RDW 14.0 Plt Count 170 D MPV 9.6 Immature Gran % (Auto) 0.5 H Neut % (Auto) 67.6 Lymph % (Auto) 22.6 Lap[place] % (Auto) 7.0 Eos % (Auto) 1.8 Baso % (Auto) 0.5 Lymph # (Auto) 0.9 L [place] # (Auto) 0.3 Eos # (Auto) 0.1 Baso # (Auto) 0.0 Abs Immat Gran (auto) 0.02 Absolute Neuts (auto) 2.7 Absolute Nucleated RBC 0.000 Nucleated RBC % (auto) 0.0 ESR PT INR APTT D-Dimer High Sensitivty Sodium 143 Potassium 4.2 Chloride 107 Carbon Dioxide 29 Anion Gap 11 L BUN 18 H Creatinine 1.12 Estim Creat Clear Calc 79.8 Estimated GFR > 60 Random Glucose 99 Fasting Glucose Estimat Average Glucose Hemoglobin A1c % Uric Acid Calcium 9.3 Magnesium Total Bilirubin 0.3 AST 8 ALT 7 Alkaline Phosphatase 69 D Ammonia Total Creatine Kinase C-Reactive Protein Total Protein 5.9 L Albumin 3.8 Ceruloplasmin Triglycerides Cholesterol LDL Cholesterol, Calc HDL Cholesterol Vitamin B12 Folate TSH Free T4 Total Testosterone Fr Testosterone Dialys Random Cortisol Urine Color Urine Appearance Urine pH Ur Specific Frost Urine Protein Urine Glucose (UA) Urine Ketones Urine Blood Urine Nitrite Ur Leukocyte Esterase CSF Tube Number CSF Volume CSF Appearance CSF Color CSF WBC CSF RBC CSF Lymphocytes CSF Appearance (b) CSF Glucose CSF Total Protein CSF Lyme IgG (Immblot) CSF Lyme IgG Bands Det CSF Lyme IgM (Immblot) CSF Lyme IgM Bands Det CSF C.neoform/gat PCR CSF CMV DNA (PCR) CSF Enterovirus (PCR) CSF E. coli K1 (PCR) CSF H. influenzae (PCR) CSF HSV I (PCR) CSF HSV II (PCR) CSF L.monocytogenes PCR CSF N. meningitidis PCR CSF Parechovirus (PCR) CSF S. agalactiae (PCR) CSF S. pneumoniae (PCR) CSF VZV (PCR) Ur Arsenic 24 Hour Urine Cadmium 24 Hour Serum Copper Ur Total Volume Ur Copper 24 Hr Urine Lead 24 Hour Urine Mercury 24 Hour Zinc 64 Rheumatoid Factor TRENT Screen TRENT Titer TRENT Titer 2 TRENT Titer 3 TRENT Pattern TRENT Pattern 2 TRENT Pattern 3 Anti-ds DNA Titer (Crith) Anti-ds DNA (Crithidia) T.pallidum Ab (EIA) Lyme Screen IgG & IgM Lyme Progressive Test COVID-19 ([facility]) COVID-19 Clin Com HIV 1&2 Ab/P24 Ag 4thGn HHV-6 (PCR) Ref Lab Test Result 01/29/22 01/29/22 01/29/22 08:08 08:08 09:08 WBC RBC Hgb Hct MCV MCH MCHC RDW Plt Count MPV Immature Gran % (Auto) Neut % (Auto) Lymph % (Auto) [place] % (Auto) Eos % (Auto) Baso % (Auto) Lymph # (Auto) [place] # (Auto) Eos # (Auto) Baso # (Auto) Abs Immat Gran (auto) Absolute Neuts (auto) Absolute Nucleated RBC Nucleated RBC % (auto) ESR PT INR APTT D-Dimer High Sensitivty Sodium Potassium Chloride Carbon Dioxide Anion Gap BUN Creatinine Estim Creat Clear Calc Estimated GFR Random Glucose Fasting Glucose Estimat Average Glucose 97 Hemoglobin A1c % 5.0 Uric Acid Calcium Magnesium Total Bilirubin AST ALT Alkaline Phosphatase Ammonia Total Creatine Kinase C-Reactive Protein Total Protein Albumin Ceruloplasmin Triglycerides 116 Cholesterol 222 D LDL Cholesterol, Calc 170 HDL Cholesterol 29 Vitamin B12 Folate TSH Free T4 Total Testosterone Fr Testosterone Dialys Random Cortisol Urine Color Urine Appearance Urine pH Ur Specific Frost Urine Protein Urine Glucose (UA) Urine Ketones Urine Blood Urine Nitrite Ur Leukocyte Esterase CSF Tube Number CSF Volume CSF Appearance CSF Color CSF WBC CSF RBC CSF Lymphocytes CSF Appearance (b) CSF Glucose CSF Total Protein CSF Lyme IgG (Immblot) CSF Lyme IgG Bands Det CSF Lyme IgM (Immblot) CSF Lyme IgM Bands Det CSF C.neoform/gat PCR CSF CMV DNA (PCR) CSF Enterovirus (PCR) CSF E. coli K1 (PCR) CSF H. influenzae (PCR) CSF HSV I (PCR) CSF HSV II (PCR) CSF L.monocytogenes PCR CSF N. meningitidis PCR CSF Parechovirus (PCR) CSF S. agalactiae (PCR) CSF S. pneumoniae (PCR) CSF VZV (PCR) Ur Arsenic 24 Hour Urine Cadmium 24 Hour Serum Copper Ur Total Volume Ur Copper 24 Hr Urine Lead 24 Hour Urine Mercury 24 Hour Zinc Rheumatoid Factor TRENT Screen TRENT Titer TRENT Titer 2 TRENT Titer 3 TRNET Pattern TRENT Pattern 2 TRENT Pattern 3 Anti-ds DNA Titer (Crith) Anti-ds DNA (Crithidia) T.pallidum Ab (EIA) Lyme Screen IgG & IgM Lyme Progressive Test COVID-19 ([facility]) Negative COVID-19 Clin Com See Note HIV 1&2 Ab/P24 Ag 4thGn HHV-6 (PCR) Ref Lab Test Result Airway Mallampati Class: III TM Dist: >3cm Neck ROM: Full Heart: rrr Lungs: cta Assessment and Plan Assessment Anesthesia Assessment: Anesthesia Plan Discussed and Chart Reviewed Final Anesthetic Review Family History of Problems with Anesthesia: No History of Problems with Anesthesia: No NPO: Yes ASA Class: III Final Preanesthetic Review: No Changes in Pt Med Stat, Meds/Allgs Chart Reviewed and Consent Obtained/Reviewed Patient Risk: Intermediate Procedure Risk: Intermediate Anesthetic Plan Anesthetic Plan: GA Disposition: Standard PACU
--- NOTE | 2022-02-01 09:12 | MHC.SHP ---
Pre-Procedural Eval Section A Date of Service: 02/01/22 The patient is an INPATIENT: Yes Changes since office visit: Yes Patient answered all questions; No Cold of Flu in the past 2 weeks, No New Medical Problems and No Changes in Medication The History & Physical has been completed within 30 days and I have reviewed it.: Yes Section B Chief Complaint: unspecified bipolar and related d/o Allergies: Allergies Allergy/AdvReac Type Severity Reaction Status Date / Time No Known Allergies Allergy Unverified 11/07/21 21:23 Plan I have reviewed the history and physical and performed a pertinent physical examination on my patient. No changes have occurred unless specified.
--- NOTE | 2022-02-01 09:23 | HO.ECTPROC ---
ECT Procedure Note Diagnosis/Treatment Date of Service: 02/01/22 Diagnosis: Major Depressive Disorder Previous ECT Date: 01/30/22 Current Treatment Number: 2 Treatment: Series Interval Clinical Notes: weaver affect much improved no c/o side effect ECT Settings Device: THYMATRON DGx Electrode Placement: Right Unilateral Program/Pulse Width: 0.25 Energy Percent: 75 Seizure Duration By EEG (in seconds): 61 Medications Administration General Anesthetic: Etomidate (14) Muscle Relaxant: Succinylcholine (100) Ancillary Medications Analgesics: Torodol - Pre ECT Anti-emetics: Zofran - Pre ECT Miscillaneous Medications: Propofol Airway Management Airway Management: Bag Mask Ventilation Treatment Recommendations No Changes Recommended: No change Pt Tolerated Procedure w/o Issue: Yes
[2022-02-01] MEDS: risperiDONE 1 MG TABLET PO ×2 (10:33→20:00)
[2022-02-01] MEDS: polyethylene glycoL 3350 17 GM POWD.PACK PO (10:33)
[2022-02-01] MEDS: Sucralfate 1 GM TABLET PO ×3 (10:33→20:00)
[2022-02-01] MEDS: DULoxetine HCl 30 MG CAPSULE.DR PO (10:33)
[2022-02-01] MEDS: amantadine HCL 100 MG CAPSULE PO ×2 (10:33→20:00)
--- NOTE | 2022-02-01 15:43 | P.PNPSI_ITS ---
Subjective Subjective Date of Service: 02/01/22 Reason For Visit: unspecified bipolar and related d/o Subjective Notes: Conditional Voluntary (HCP activation) Healthcare Proxy: Yes Guardianship: No Medical Problems Affecting Mental Status: No Interim History: ECT #2. Pt, after his treatment was visable and engaged in the milieu for the entire day. He was social with peers, participated in groups, spent several intervals on the phone, won two games of PanX with prizes and was a bit high after the intervention. He asked to talk with tw-- you know, I might owe you and Dr. Inman apologies- I think this has worked-I don't feel sick anymore. I don't feel weak, I don't feel anergic, I am me again. Pt talking about going home, seeing his children, spending time with his family. Significant postive change and improvement. Medication Compliance: Yes Side effects from medications: No Attending Groups: Yes Review of Systems Acute medical concerns: No Medical Review of Systems: unchanged Review of Systems Psychiatric: Reports no additional psychiatric complaints Mental Status Exam Mental Status Exam Patient Appearance: Appropriate Patient Orientation: Person, Place, Time and Situation Level of Consciousness: Alert Patient Behavior: Talkative, Hyperactive, Cooperative, Distractible and Good Eye Contact Mood Description: Happy Affect Description: Happy Patient Cognition Impaired: No Ability to Follow Directions: Good Speech Pattern: Spontaneous Speech Memory Description: Intact Hallucinations: None Delusions: Not Present Thought Process: Distracted Thought Content: positive for Intact, positive for Linear and positive for Logical Judgement: Fair Diagnostics Vital Signs (24Hr): Vital Signs - 24 hr 01/31/22 18:00 02/01/22 06:00 02/01/22 08:22 Temperature 99.3 F 97.3 F 97.3 F Pulse Rate 69 67 70 Respiratory Rate 18 16 18 Blood Pressure 130/74 147/84 H 132/87 Pulse Oximetry 97 98 100 02/01/22 09:23 02/01/22 09:28 02/01/22 09:33 Temperature 98.2 F Pulse Rate 75 93 99 Respiratory Rate 16 18 19 Blood Pressure 140/69 H 97/51 L 89/56 L Pulse Oximetry 100 100 99 02/01/22 09:38 02/01/22 09:53 02/01/22 10:08 Temperature 98.0 F Pulse Rate 109 H 99 83 Respiratory Rate 19 18 18 Blood Pressure 110/71 120/78 118/77 Pulse Oximetry 99 94 96 02/01/22 10:21 Temperature 98.0 F Pulse Rate 83 Respiratory Rate 18 Blood Pressure 115/77 Pulse Oximetry 96 BMI result Body Mass Index 26.4 Labs Results: 01/28/22 11:08 01/28/22 11:08 Imaging Radiology Impressions: ITS Impressions Foot X-Ray 11/08/21 17:32 IMPRESSION: Tiny Achilles heel spur. Otherwise unremarkable appearance of the left foot. Cervical Spine X-Ray 11/22/21 14:50 IMPRESSION: No fracture or malalignment. Mild degenerative changes. Forearm X-Ray 11/22/21 14:50 IMPRESSION: No acute fractures or malalignment within the imaged left upper extremity. Hip X-Ray 11/22/21 14:50 IMPRESSION: No acute fractures or malalignment. Humerus X-Ray 11/22/21 14:50 IMPRESSION: No acute fractures or malalignment within the imaged left upper extremity. Shoulder X-Ray 11/22/21 14:50 IMPRESSION: No acute fractures or malalignment within the imaged left upper extremity. Head CT 12/22/21 16:42 IMPRESSION: No acute intracranial pathology. Hand X-Ray 12/25/21 08:38 IMPRESSION: No soft tissue foreign body seen. Brain MRI 12/25/21 09:20 IMPRESSION: No acute intracranial findings. No acute infarcts. There is mild chronic microangiopathy. No pathologic enhancement. Lumbar Puncture Fluoroscopy 12/27/21 14:00 IMPRESSION: Successful ultrasound-guided lumbar puncture performed without immediate complications. Barium Swallow X-Ray 01/10/22 08:29 IMPRESSION: Unremarkable barium swallow in upright and supine position. Occasional secondary and tertiary peristalsis seen in mid and distal esophagus with solid foot but no obstruction.. Medications Medications Current Medications Acetaminophen (Acetaminophen 325 Mg Tablet) 650 mg PO Q6H PRN PRN Reason: Headache/Pain Mild Scale (1-3) Last Admin: 01/30/22 10:33 Dose: 650 mg Documented by: Al Hydroxide/Mg Hydroxide (Magnesium Hydrox/Alum Hydrox 30 Ml Oral.Susp) 30 ml PO Q6H PRN PRN Reason: Heartburn/Nausea Amantadine HCl (Amantadine Hcl 100 Mg Capsule) 100 mg PO BID ANISAH Last Admin: 02/01/22 10:33 Dose: 100 mg Documented by: Duloxetine HCl (Duloxetine Hcl 30 Mg Capsule.) 30 mg PO DAILY [facility] Last Admin: 02/01/22 10:33 Dose: 30 mg Documented by: Ferrous Sulfate (Ferrous Sulfate 324 Mg Tablet.) 324 mg PO BEDTIME [facility] Last Admin: 01/31/22 20:53 Dose: 324 mg Documented by: Hydroxyzine HCl (Hydroxyzine Hcl 25 Mg Tablet) 25 mg PO Q6H PRN PRN Reason: Anxiety Last Admin: 12/16/21 22:28 Dose: 25 mg Documented by: Lactated Ringer's (Lr) 1,000 mls @ 50 mls/hr IVCONT .Q20H [facility] Last Admin: 02/01/22 10:33 Dose: Not Given Documented by: Ibuprofen (Ibuprofen 800 Mg Tablet) 800 mg PO Q8H PRN PRN Reason: Pain, Mild (Pain Scale 1-3) Loperamide HCl (Loperamide Hcl 2 Mg Capsule) 2 mg PO Q6H PRN PRN Reason: Diarrhea Last Admin: 11/17/21 13:40 Dose: 2 mg Documented by: Magnesium Hydroxide (Milk Of Magnesia 30 Ml Oral.Susp) 30 ml PO DAILY PRN PRN Reason: Constipation Omeprazole (Omeprazole 40 Mg Capsule.) 40 mg PO DAILY@0630 [facility] Last Admin: 02/01/22 05:32 Dose: 40 mg Documented by: Polyethylene Glycol (Polyethylene Glycol 3350 17 Gm Powd.Pack) 17 gm PO DAILY [facility] Last Admin: 02/01/22 10:33 Dose: 17 gm Documented by: Psyllium Hydrophilic Mucilloid (Psyllium Seed 3.4 Gm Powd.Pack) 3.4 gm PO BEDTIME [facility] Last Admin: 01/31/22 20:56 Dose: Not Given Documented by: Risperidone (Risperidone 1 Mg Tablet) 1 mg PO BID [facility] Last Admin: 02/01/22 10:33 Dose: 1 mg Documented by: Sucralfate (Sucralfate 1 Gm Tablet) 1 gm PO TID [facility] Last Admin: 02/01/22 14:31 Dose: 1 gm Documented by: Trazodone HCl (Trazodone Hcl 50 Mg Tablet) 50 mg PO BEDTIME PRN PRN Reason: Insomnia Allergies Allergies Allergy/AdvReac Type Severity Reaction Status Date / Time No Known Allergies Allergy Unverified 11/07/21 21:23 Assessment & Plan Assessment & Plan (1) MDD (major depressive disorder), recurrent, severe, with psychosis: Status: Acute Code(s): F33.3 - Major depressive disorder, recurrent, severe with psychotic symptoms (2) Encephalopathy chronic: Status: Acute Code(s): G93.49 - Other encephalopathy Plan Remains depressed, anergic, unable to make a clear decision/choice. HCP activate d, today, pt able to give SSN for court paperwork Continue Cymbalta, Risperdal, Sertraline Work with pt, , team to move forward with plan of care- prepare for ECT Pt completed barium swallow- results negative 01/11/22 Increase Risperdal to 2 mg bid 01/12/2022 Patient seen extensively reviewed diagnosis expectation for treatment with ECT risks benefits alternatives and lack of response to medication. Also reviewed patient's medical history that there is does not appear to be any other etiology to his condition. Again reviewed ECT procedure continues to have difficulty with decision making in taking information 01/14/22 Support, educate, prepare for HCP affirmation-ECT 01/16/22 Increase Cymbalta to 60 mg daily Discontinue Sertraline 01/17/22 Decrease Cymbalta to 30 mg daily-Gerry is planning on beginning to refuse meds, will taper back slowly should he choose tapering. 01/19/22: no change to the above 01/20/22: no change 01/21/22: Anticipating court validation of HCP with increase in fear, anxiety and resulting anger. States he plans to refuse medications-dose of Cymbalta decreased to prepare to manage SE, however, pt is compliant with regime at this time. 01/23/22: Continue current plan Offer support, answer questions, address concerns, attempt to manage pt's anxiety regarding treatment 01/24/22: Court hearing 01/25/22. Offer support to pt. Continue current medications-pt has not refused his regime he reports today. 01/25/22: Discussed with team-Initial planning with Gerry and his to address negative emotions surrounding treatment and outcome so we may help Gerry move toward his recovery in a positive frame of reference. 01/26 no changes to current tx regimen 01/27 no changes to current tx regimen 01/28/22: Medical clearance for tentative ECT on 01/30/22. 01/29/22: Prepare for ECT on 01/30/22. Today, pt continues to decline further education and support 01/30/22: Continue current plan of care 01/31/22: Continue current plan of care, appears improved. 02/01/22: ECT#2. Significant improvement, possible hypomania. Discussed with Dr. Inman. We will discontinue Cymbalta for a time to prevent promotion of [place] I spent minutes with the patient and/or on the patient floor today, greater than?50% of which was spent counseling/coordinating care. Patient educated on: medication risk/benefits and therapeutic strategies Informed Consent: understands Reason for contiued inpatient stay Substantial Risk for: inability to function and rapid decompensation
[2022-02-01] MEDS: Ferrous Sulfate 324 MG TABLET.DR PO (20:00)
[2022-02-02 06:00] VITALS: BP 117/74; PULSE 89; RESP 18; TEMP 36.8; O2SAT 97
[2022-02-02] MEDS: Omeprazole 40 MG CAPSULE.DR PO (06:21)
[2022-02-02] MEDS: risperiDONE 1 MG TABLET PO ×2 (08:52→20:58)
[2022-02-02] MEDS: Sucralfate 1 GM TABLET PO ×3 (08:52→20:58)
[2022-02-02] MEDS: amantadine HCL 100 MG CAPSULE PO ×2 (08:52→20:58)
--- NOTE | 2022-02-02 09:32 | P.PNPSI_ITS ---
Subjective Subjective Date of Service: 02/02/22 Reason For Visit: unspecified bipolar and related d/o Subjective Notes: Conditional Voluntary Medical Problems Affecting Mental Status: No Interim History: Patient was seen and discussed in rounds today. He has been doing better and is continuing with his ECT treatment. Yesterday he felt that he is doing a lot better and was more social and interactive. Today he is not quite sure but cindi mcmahon states that he is brighter and more active. No complaints or side effects. Eating and sleeping adequately. No active SI. No changes were made today Review of Systems Review of Systems Depression Yes all other systems are reviewed and are negative Diagnostics Vital Signs (24Hr): Vital Signs - 24 hr 02/01/22 09:38 02/01/22 09:53 02/01/22 10:08 Temperature 98.0 F Pulse Rate 109 H 99 83 Respiratory Rate 19 18 18 Blood Pressure 110/71 120/78 118/77 Pulse Oximetry 99 94 96 02/01/22 10:21 02/01/22 18:27 02/02/22 06:00 Temperature 98.0 F 98.2 F Pulse Rate 83 120 H 89 Respiratory Rate 18 18 Blood Pressure 115/77 115/69 117/74 Pulse Oximetry 96 97 BMI result Body Mass Index 26.4 Labs Results: 01/28/22 11:08 01/28/22 11:08 Imaging Radiology Impressions: ITS Impressions Foot X-Ray 11/08/21 17:32 IMPRESSION: Tiny Achilles heel spur. Otherwise unremarkable appearance of the left foot. Cervical Spine X-Ray 11/22/21 14:50 IMPRESSION: No fracture or malalignment. Mild degenerative changes. Forearm X-Ray 11/22/21 14:50 IMPRESSION: No acute fractures or malalignment within the imaged left upper extremity. Hip X-Ray 11/22/21 14:50 IMPRESSION: No acute fractures or malalignment. Humerus X-Ray 11/22/21 14:50 IMPRESSION: No acute fractures or malalignment within the imaged left upper extremity. Shoulder X-Ray 11/22/21 14:50 IMPRESSION: No acute fractures or malalignment within the imaged left upper extremity. Head CT 12/22/21 16:42 IMPRESSION: No acute intracranial pathology. Hand X-Ray 12/25/21 08:38 IMPRESSION: No soft tissue foreign body seen. Brain MRI 12/25/21 09:20 IMPRESSION: No acute intracranial findings. No acute infarcts. There is mild chronic microangiopathy. No pathologic enhancement. Lumbar Puncture Fluoroscopy 12/27/21 14:00 IMPRESSION: Successful ultrasound-guided lumbar puncture performed without immediate complications. Barium Swallow X-Ray 01/10/22 08:29 IMPRESSION: Unremarkable barium swallow in upright and supine position. Occasional secondary and tertiary peristalsis seen in mid and distal esophagus with solid foot but no obstruction.. Medications Medications Current Medications Acetaminophen (Acetaminophen 325 Mg Tablet) 650 mg PO Q6H PRN PRN Reason: Headache/Pain Mild Scale (1-3) Last Admin: 01/30/22 10:33 Dose: 650 mg Documented by: Al Hydroxide/Mg Hydroxide (Magnesium Hydrox/Alum Hydrox 30 Ml Oral.Susp) 30 ml PO Q6H PRN PRN Reason: Heartburn/Nausea Amantadine HCl (Amantadine Hcl 100 Mg Capsule) 100 mg PO BID [facility] Last Admin: 02/02/22 08:52 Dose: 100 mg Documented by: Ferrous Sulfate (Ferrous Sulfate 324 Mg Tablet.) 324 mg PO BEDTIME [facility] Last Admin: 02/01/22 20:00 Dose: 324 mg Documented by: Hydroxyzine HCl (Hydroxyzine Hcl 25 Mg Tablet) 25 mg PO Q6H PRN PRN Reason: Anxiety Last Admin: 12/16/21 22:28 Dose: 25 mg Documented by: Lactated Ringer's (Lr) 1,000 mls @ 50 mls/hr IVCONT .Q20H [facility] Last Admin: 02/02/22 04:30 Dose: Not Given Documented by: Ibuprofen (Ibuprofen 800 Mg Tablet) 800 mg PO Q8H PRN PRN Reason: Pain, Mild (Pain Scale 1-3) Loperamide HCl (Loperamide Hcl 2 Mg Capsule) 2 mg PO Q6H PRN PRN Reason: Diarrhea Last Admin: 11/17/21 13:40 Dose: 2 mg Documented by: Magnesium Hydroxide (Milk Of Magnesia 30 Ml Oral.Susp) 30 ml PO DAILY PRN PRN Reason: Constipation Omeprazole (Omeprazole 40 Mg Capsule.) 40 mg PO DAILY@0630 [facility] Last Admin: 02/02/22 06:21 Dose: 40 mg Documented by: Polyethylene Glycol (Polyethylene Glycol 3350 17 Gm Powd.Pack) 17 gm PO DAILY [facility] Last Admin: 02/01/22 10:33 Dose: 17 gm Documented by: Psyllium Hydrophilic Mucilloid (Psyllium Seed 3.4 Gm Powd.Pack) 3.4 gm PO BEDTIME [facility] Last Admin: 02/01/22 20:00 Dose: Not Given Documented by: Risperidone (Risperidone 1 Mg Tablet) 1 mg PO BID [facility] Last Admin: 02/02/22 08:52 Dose: 1 mg Documented by: Sucralfate (Sucralfate 1 Gm Tablet) 1 gm PO TID [facility] Last Admin: 02/02/22 08:52 Dose: 1 gm Documented by: Trazodone HCl (Trazodone Hcl 50 Mg Tablet) 50 mg PO BEDTIME PRN PRN Reason: Insomnia Allergies Allergies Allergy/AdvReac Type Severity Reaction Status Date / Time No Known Allergies Allergy Unverified 11/07/21 21:23 Assessment & Plan Assessment & Plan (1) MDD (major depressive disorder), recurrent, severe, with psychosis: Status: Acute Code(s): F33.3 - Major depressive disorder, recurrent, severe with psychotic symptoms (2) Encephalopathy chronic: Status: Acute Code(s): G93.49 - Other encephalopathy Plan Remains depressed, anergic, unable to make a clear decision/choice. HCP activated, today, pt able to give SSN for court paperwork Continue Cymbalta, Risperdal, Sertraline Work with pt, , team to move forward with plan of care- prepare for ECT Pt completed barium swallow- results negative 01/11/22 Increase Risperdal to 2 mg bid 01/12/2022 Patient seen extensively reviewed diagnosis expectation for treatment with ECT risks benefits alternatives and lack of response to medication. Also reviewed patient's medical history that there is does not appear to be any other etiology to his condition. Again reviewed ECT procedure continues to have difficulty with decision making in taking information 01/14/22 Support, educate, prepare for HCP affirmation-ECT 01/16/22 Increase Cymbalta to 60 mg daily Discontinue Sertraline 01/17/22 Decrease Cymbalta to 30 mg daily-Gerry is planning on beginning to refuse meds, will taper back slowly should he choose tapering. 01/19/22: no change to the above 01/20/22: no change 01/21/22: Anticipating court validation of HCP with increase in fear, anxiety and resulting anger. States he plans to refuse medications-dose of Cymbalta decreased to prepare to manage SE, however, pt is compliant with regime at this time. 01/23/22: Continue current plan Offer support, answer questions, address concerns, attempt to manage pt's anxiety regarding treatment 01/24/22: Court hearing 01/25/22. Offer support to pt. Continue current medications-pt has not refused his regime he reports today. 01/25/22: Discussed with team-Initial planning with Gerry and his to address negative emotions surrounding treatment and outcome so we may help Gerry move toward his recovery in a positive frame of reference. 01/26 no changes to current tx regimen 01/27 no changes to current tx regimen 01/28/22: Medical clearance for tentative ECT on 01/30/22. 01/29/22: Prepare for ECT on 01/30/22. Today, pt continues to decline further education and support 01/30/22: Continue current plan of care 01/31/22: Continue current plan of care, appears improved. 02/01/22: ECT#2. Significant improvement, possible hypomania. Discussed with Dr. Inman. We will discontinue Cymbalta for a time to prevent promotion of [place] 02/02/2022: Continue current regimen and treatment and continuation of ECT. No c hanges were made today I spent minutes with the patient and/or on the patient floor today, greater than?50% of which was spent counseling/coordinating care. Reason for contiued inpatient stay Substantial Risk for: med/psych decompensation
[2022-02-02 18:00] VITALS: BP 127/75; PULSE 80
[2022-02-02] MEDS: Ferrous Sulfate 324 MG TABLET.DR PO (20:58)
[2022-02-03] MEDS: Omeprazole 40 MG CAPSULE.DR PO (05:50)
[2022-02-03 06:00] VITALS: BP 118/76; PULSE 88; RESP 18; TEMP 36.6; O2SAT 98
[2022-02-03] MEDS: amantadine HCL 100 MG CAPSULE PO ×2 (08:32→20:30)
[2022-02-03] MEDS: risperiDONE 1 MG TABLET PO ×2 (08:32→20:30)
[2022-02-03] MEDS: Sucralfate 1 GM TABLET PO ×3 (08:32→20:30)
--- NOTE | 2022-02-03 09:29 | P.PNPSI_ITS ---
Subjective Subjective Date of Service: 02/03/22 Reason For Visit: unspecified bipolar and related d/o Subjective Notes: Conditional Voluntary Healthcare Proxy: Yes Interim History: Patient was seen and discussed in rounds today. Records were reviewed. He continues to maintain signs of improvement and feels very encouraged with no changes from his 2 ECT treatments. No complaints. No side effects reported. His safety checks are being changed to every 15 minutes. He is more visible. Eating and sleeping adequately. No changes were made today Medication Compliance: Yes Side effects from medications: No Review of Systems Review of Systems Depression Yes all other systems are reviewed and are negative Mental Status Exam Mental Status Exam Patient Appearance: Appropriate Patient Orientation: Person, Place, Time and Situation Level of Consciousness: Alert Patient Behavior: Talkative, Hyperactive, Cooperative, Distractible and Good Eye Contact Mood Description: Happy Affect Description: Happy Patient Cognition Impaired: No Ability to Follow Directions: Good Speech Pattern: Spontaneous Speech Memory Description: Intact Hallucinations: None Delusions: Not Present Thought Process: Distracted Thought Content: positive for Intact, positive for Linear and positive for Logical Judgement: Fair Diagnostics Vital Signs (24Hr): Vital Signs - 24 hr 02/02/22 18:00 02/03/22 06:00 Temperature 97.9 F Pulse Rate 80 88 Respiratory Rate 18 Blood Pressure 127/75 118/76 Pulse Oximetry 98 BMI result Body Mass Index 26.4 Labs Results: 01/28/22 11:08 01/28/22 11:08 Imaging Radiology Impressions: ITS Impressions Foot X-Ray 11/08/21 17:32 IMPRESSION: Tiny Achilles heel spur. Otherwise unremarkable appearance of the left foot. Cervical Spine X-Ray 11/22/21 14:50 IMPRESSION: No fracture or malalignment. Mild degenerative changes. Forearm X-Ray 11/22/21 14:50 IMPRESSION: No acute fractures or malalignment within the imaged left upper extremity. Hip X-Ray 11/22/21 14:50 IMPRESSION: No acute fractures or malalignment. Humerus X-Ray 11/22/21 14:50 IMPRESSION: No acute fractures or malalignment within the imaged left upper extremity. Shoulder X-Ray 11/22/21 14:50 IMPRESSION: No acute fractures or malalignment within the imaged left upper extremity. Head CT 12/22/21 16:42 IMPRESSION: No acute intracranial pathology. Hand X-Ray 12/25/21 08:38 IMPRESSION: No soft tissue foreign body seen. Brain MRI 12/25/21 09:20 IMPRESSION: No acute intracranial findings. No acute infarcts. There is mild chronic microangiopathy. No pathologic enhancement. Lumbar Puncture Fluoroscopy 12/27/21 14:00 IMPRESSION: Successful ultrasound-guided lumbar puncture performed without immediate complications. Barium Swallow X-Ray 01/10/22 08:29 IMPRESSION: Unremarkable barium swallow in upright and supine position. Occasional secondary and tertiary peristalsis seen in mid and distal esophagus with solid foot but no obstruction.. Medications Medications Current Medications Acetaminophen (Acetaminophen 325 Mg Tablet) 650 mg PO Q6H PRN PRN Reason: Headache/Pain Mild Scale (1-3) Last Admin: 01/30/22 10:33 Dose: 650 mg Documented by: Al Hydroxide/Mg Hydroxide (Magnesium Hydrox/Alum Hydrox 30 Ml Oral.Susp) 30 ml PO Q6H PRN PRN Reason: Heartburn/Nausea Amantadine HCl (Amantadine Hcl 100 Mg Capsule) 100 mg PO BID [facility] Last Admin: 02/03/22 08:32 Dose: 100 mg Documented by: Ferrous Sulfate (Ferrous Sulfate 324 Mg Tablet.) 324 mg PO BEDTIME [facility] Last Admin: 02/02/22 20:58 Dose: 324 mg Documented by: Hydroxyzine HCl (Hydroxyzine Hcl 25 Mg Tablet) 25 mg PO Q6H PRN PRN Reason: Anxiety Last Admin: 12/16/21 22:28 Dose: 25 mg Documented by: Lactated Ringer's (Lr) 1,000 mls @ 50 mls/hr IVCONT .Q20H [facility] Last Admin: 02/03/22 01:56 Dose: Not Given Documented by: Ibuprofen (Ibuprofen 800 Mg Tablet) 800 mg PO Q8H PRN PRN Reason: Pain, Mild (Pain Scale 1-3) Loperamide HCl (Loperamide Hcl 2 Mg Capsule) 2 mg PO Q6H PRN PRN Reason: Diarrhea Last Admin: 11/17/21 13:40 Dose: 2 mg Documented by: Magnesium Hydroxide (Milk Of Magnesia 30 Ml Oral.Susp) 30 ml PO DAILY PRN PRN Reason: Constipation Omeprazole (Omeprazole 40 Mg Capsule.) 40 mg PO DAILY@0630 [facility] Last Admin: 02/03/22 05:50 Dose: 40 mg Documented by: Polyethylene Glycol (Polyethylene Glycol 3350 17 Gm Powd.Pack) 17 gm PO DAILY [facility] Last Admin: 02/03/22 08:33 Dose: Not Given Documented by: Psyllium Hydrophilic Mucilloid (Psyllium Seed 3.4 Gm Powd.Pack) 3.4 gm PO BEDTIME [facility] Last Admin: 02/02/22 20:58 Dose: Not Given Documented by: Risperidone (Risperidone 1 Mg Tablet) 1 mg PO BID [facility] Last Admin: 02/03/22 08:32 Dose: 1 mg Documented by: Sucralfate (Sucralfate 1 Gm Tablet) 1 gm PO TID [facility] Last Admin: 02/03/22 08:32 Dose: 1 gm Documented by: Trazodone HCl (Trazodone Hcl 50 Mg Tablet) 50 mg PO BEDTIME PRN PRN Reason: Insomnia Allergies Allergies Allergy/AdvReac Type Severity Reaction Status Date / Time No Known Allergies Allergy Unverified 11/07/21 21:23 Assessment & Plan Assessment & Plan (1) MDD (major depressive disorder), recurrent, severe, with psychosis: Status: Acute Code(s): F33.3 - Major depressive disorder, recurrent, severe with psychotic symptoms (2) Encephalopathy chronic: Status: Acute Code(s): G93.49 - Other encephalopathy Plan Remains depressed, anergic, unable to make a clear decision/choice. HCP activated, today, pt able to give SSN for court paperwork Continue Cymbalta, Risperdal, Sertraline Work with pt, , team to move forward with plan of care- prepare for ECT Pt completed barium swallow- results negative 01/11/22 Increase Risperdal to 2 mg bid 01/12/2022 Patient seen extensively reviewed diagnosis expectation for treatment with ECT risks benefits alternatives and lack of response to medication. Also reviewed patient's medical history that there is does not appear to be any other etiology to his condition. Again reviewed ECT procedure continues to have difficulty with decision making in taking information 01/14/22 Support, educate, prepare for HCP affirmation-ECT 01/16/22 Increase Cymbalta to 60 mg daily Discontinue Sertraline 01/17/22 Decrease Cymbalta to 30 mg daily-Gerry is planning on beginning to refuse meds, will taper back slowly should he choose tapering. 01/19/22: no change to the above 01/20/22: no change 01/21/22: Anticipating court validation of HCP with increase in fear, anxiety and resulting anger. States he plans to refuse medications-dose of Cymbalta decreased to prepare to manage SE, however, pt is compliant with regime at this time. 01/23/22: Continue current plan Offer support, answer questions, address concerns, attempt to manage pt's anxiety regarding treatment 01/24/22: Court hearing 01/25/22. Offer support to pt. Continue current medications-pt has not refused his regime he reports today. 01/25/22: Discussed with team-Initial planning with Gerry and his to address negative emotions surrounding treatment and outcome so we may help Gerry move toward his recovery in a positive frame of reference. 01/26 no changes to current tx regimen 01/27 no changes to current tx regimen 01/28/22: Medical clearance for tentative ECT on 01/30/22. 01/29/22: Prepare for ECT on 01/30/22. Today, pt continues to decline further education and support 01/30/22: Continue current plan of care 01/31/22: Continue current plan of care, appears improved. 02/01/22: ECT#2. Significant improvement, possible hypomania. Discussed with Dr. Inman. We will discontinue Cymbalta for a time to prevent promotion of [place] 02/02/2022: Continue current regimen and treatment and continuation of ECT. No changes were made today 02/03/2022: Continue current regimen and plans. Continue ECT. Safety checks were changed to every 15 minutes I spent minutes with the patient and/or on the patient floor today, greater than?50% of which was spent counseling/coordinating care. Reason for contiued inpatient stay Substantial Risk for: harm to self
[2022-02-03 17:57] VITALS: BP 115/70; PULSE 75; TEMP 36.7
[2022-02-03] MEDS: Ferrous Sulfate 324 MG TABLET.DR PO (20:31)
[2022-02-04] VITALS (11 sets, daily range): BP systolic 100–148; BP diastolic 68–89; PULSE 54–84; RESP 16–21; TEMP 36.2–36.8; O2SAT 96–100
[2022-02-04] MEDS: Omeprazole 40 MG CAPSULE.DR PO (06:10)
--- NOTE | 2022-02-04 08:21 | MHC.SHP ---
Pre-Procedural Eval Section A Date of Service: 02/04/22 Changes since office visit: Yes Changes in Medication and Yes Patient answered all questions; No Cold of Flu in the past 2 weeks and No New Medical Problems The History & Physical has been completed within 30 days and I have reviewed it.: Yes Section B Chief Complaint: unspecified bipolar and related d/o Allergies: Allergies Allergy/AdvReac Type Severity Reaction Status Date / Time No Known Allergies Allergy Unverified 11/07/21 21:23 Plan I have reviewed the history and physical and performed a pertinent physical examination on my patient. No changes have occurred unless specified.
--- NOTE | 2022-02-04 08:21 | HO.ECTPROC ---
ECT Procedure Note Diagnosis/Treatment Date of Service: 02/04/22 Previous ECT Date: 02/01/22 Current Treatment Number: 3 Treatment: Series Interval Clinical Notes: PT SOMEWHAT SUBDUED NOT EUPHORIC NO C/O SIDE EFFECTS ECT Settings Device: THYMATRON DGx Electrode Placement: Right Unilateral Program/Pulse Width: 0.25 Energy Percent: 75 Seizure Duration By EEG (in seconds): 80 Medications Administration General Anesthetic: Etomidate (16) Muscle Relaxant: Succinylcholine (120) Ancillary Medications Analgesics: Torodol - Pre ECT Anti-emetics: Zofran - Pre ECT Miscillaneous Medications: Propofol (30) and Midazolam (2) Airway Management Airway Management: Bag Mask Ventilation Treatment Recommendations No Changes Recommended: No change Notes: TRANSIENT ECTOPY POST TX NOTED ELECTROLYTES ORDERED Pt Tolerated Procedure w/o Issue: Yes
--- NOTE | 2022-02-04 08:57 | HO.ANESPROP2 ---
[facility] Active Problems Active Problems: All Active Problems (Updated 01/29/22 @ 16:28 by Ethan Guidry MD) Constipation (Acute) Pre-op exam (Acute) Encephalopathy chronic (Acute) Paronychia of finger of left hand (Acute) MDD (major depressive disorder), recurrent, severe, with psychosis (Acute) Routine medical exam (Acute) Past Medical History Medical History Gram-negative bacteremia Functional capacity: independent ambulation Family History Family history of problems with anesthesia: No Surgical History History of Problems with Anesthesia: No Social History Social History Household Members: Spouse and Children Household Members Other:: and Three Children ages 11, 13, 15 Housing: House Do you presently have visiting nurse or other home services: No Patient Tobacco Use Status: Never used Tobacco Use of substances other than those prescribed or required for medical reasons: No Currently Displaying Signs/Symptoms of Drug Intoxication Withdrawal: No Have you been hit, kicked, punched, or otherwise hurt by someone within the past year? If so, by whom?: No Do you feel safe in your current relationship?: Yes Is there a partner from a previous relationship who is making you feel unsafe now?: No Are you made to feel afraid or neglected: No Advance Directives: No Advance Directives Information Provided: No Do you have thoughts of harming others: None Do you have a plan to hurt others: No Plan Recently lost weight without trying: No Eating poorly because of decreased appetite: No Nutrition Risks: No Nutritional Risk Poor oral hygiene: No service: No ([employer] [id number]) Sexual orientation: Straight/Heterosexual Meds Allergies Allergy/AdvReac Type Severity Reaction Status Date / Time No Known Allergies Allergy Unverified 11/07/21 21:23 Active Medications: Current Medications Acetaminophen (Acetaminophen 325 Mg Tablet) 650 mg PO Q6H PRN PRN Reason: Headache/Pain Mild Scale (1-3) Last Admin: 01/30/22 10:33 Dose: 650 mg Documented by: Al Hydroxide/Mg Hydroxide (Magnesium Hydrox/Alum Hydrox 30 Ml Oral.Susp) 30 ml PO Q6H PRN PRN Reason: Heartburn/Nausea Amantadine HCl (Amantadine Hcl 100 Mg Capsule) 100 mg PO BID ANISHA Last Admin: 02/03/22 20:30 Dose: 100 mg Documented by: Ferrous Sulfate (Ferrous Sulfate 324 Mg Tablet.) 324 mg PO BEDTIME [facility] Last Admin: 02/03/22 20:31 Dose: 324 mg Documented by: Hydroxyzine HCl (Hydroxyzine Hcl 25 Mg Tablet) 25 mg PO Q6H PRN PRN Reason: Anxiety Last Admin: 12/16/21 22:28 Dose: 25 mg Documented by: Ibuprofen (Ibuprofen 800 Mg Tablet) 800 mg PO Q8H PRN PRN Reason: Pain, Mild (Pain Scale 1-3) Loperamide HCl (Loperamide Hcl 2 Mg Capsule) 2 mg PO Q6H PRN PRN Reason: Diarrhea Last Admin: 11/17/21 13:40 Dose: 2 mg Documented by: Magnesium Hydroxide (Milk Of Magnesia 30 Ml Oral.Susp) 30 ml PO DAILY PRN PRN Reason: Constipation Omeprazole (Omeprazole 40 Mg Capsule.) 40 mg PO DAILY@0630 [facility] Last Admin: 02/04/22 06:10 Dose: 40 mg Documented by: Polyethylene Glycol (Polyethylene Glycol 3350 17 Gm Powd.Pack) 17 gm PO DAILY [facility] Last Admin: 02/03/22 08:33 Dose: Not Given Documented by: Psyllium Hydrophilic Mucilloid (Psyllium Seed 3.4 Gm Powd.Pack) 3.4 gm PO BEDTIME [facility] Last Admin: 02/03/22 15:38 Dose: Not Given Documented by: Risperidone (Risperidone 1 Mg Tablet) 1 mg PO BID [facility] Last Admin: 02/03/22 20:30 Dose: 1 mg Documented by: Sucralfate (Sucralfate 1 Gm Tablet) 1 gm PO TID [facility] Last Admin: 02/03/22 20:30 Dose: 1 gm Documented by: Trazodone HCl (Trazodone Hcl 50 Mg Tablet) 50 mg PO BEDTIME PRN PRN Reason: Insomnia Home Medications Medication Instructions Recorded Confirmed Last Taken Type acetaminophen 500 mg tablet 500 mg PO Q6-8H PRN 12/13/21 12/13/21 Unknown History (Acetaminophen Extra Strength) Exam Exam Date and Time: February 04, 2022 0857 Height,Weight and Vital Signs: Height 6 ft Weight 88.2 kg Last Vital Signs Temp 97.3 F 02/04/22 06:43 Pulse 59 02/04/22 06:43 Resp 18 02/04/22 06:43 BP 130/78 02/04/22 06:43 Pulse Ox 99 02/04/22 06:43 Pertinent Lab Results Pertinent Lab Results: Laboratory Tests 11/08/21 11/08/21 11/08/21 08:30 08:30 08:30 WBC RBC Hgb Hct MCV MCH MCHC RDW Plt Count MPV Immature Gran % (Auto) Neut % (Auto) Lymph % (Auto) [place] % (Auto) Eos % (Auto) Baso % (Auto) Lymph # (Auto) [place] # (Auto) Eos # (Auto) Baso # (Auto) Abs Immat Gran (auto) Absolute Neuts (auto) Absolute Nucleated RBC Nucleated RBC % (auto) ESR PT INR APTT D-Dimer High Sensitivty Sodium 142 Potassium 4.0 Chloride 103 Carbon Dioxide 32 H Anion Gap 11 L BUN 18 H Creatinine 1.13 Estim Creat Clear Calc TNP Estimated GFR > 60 Random Glucose Fasting Glucose 101 H Estimat Average Glucose 103 Hemoglobin A1c % 5.2 Uric Acid Calcium 9.5 Magnesium 2.4 Total Bilirubin 1.1 H AST 16 ALT 33 Alkaline Phosphatase 63 Ammonia Total Creatine Kinase C-Reactive Protein Total Protein 6.1 L Albumin 4.1 Ceruloplasmin Triglycerides 117 Cholesterol 142 LDL Cholesterol, Calc 91 HDL Cholesterol 28 Vitamin B12 619 Folate 7.0 TSH 1.84 Free T4 1.10 Total Testosterone Fr Testosterone Dialys Random Cortisol Urine Color Urine Appearance Urine pH Ur Specific [place] Urine Protein Urine Glucose (UA) Urine Ketones Urine Blood Urine Nitrite Ur Leukocyte Esterase CSF Tube Number CSF Volume CSF Appearance CSF Color CSF WBC CSF RBC CSF Lymphocytes CSF Appearance (b) CSF Glucose CSF Total Protein CSF Lyme IgG (Immblot) CSF Lyme IgG Bands Det CSF Lyme IgM (Immblot) CSF Lyme IgM Bands Det CSF C.neoform/gat PCR CSF CMV DNA (PCR) CSF Enterovirus (PCR) CSF E. coli K1 (PCR) CSF H. influenzae (PCR) CSF HSV I (PCR) CSF HSV II (PCR) CSF L.monocytogenes PCR CSF N. meningitidis PCR CSF Parechovirus (PCR) CSF S. agalactiae (PCR) CSF S. pneumoniae (PCR) CSF VZV (PCR) Ur Arsenic 24 Hour Urine Cadmium 24 Hour Serum Copper Ur Total Volume Ur Copper 24 Hr Urine Lead 24 Hour Urine Mercury 24 Hour Zinc Rheumatoid Factor TRENT Screen TRENT Titer TRENT Titer 2 TRENT Titer 3 TRENT Pattern TRENT Pattern 2 TRENT Pattern 3 Anti-ds DNA Titer (Crith) Anti-ds DNA (Crithidia) T.pallidum Ab (EIA) Lyme Screen IgG & IgM Lyme Progressive Test COVID-19 ([facility]) COVID-19 Clin Com HIV 1&2 Ab/P24 Ag 4thGn HHV-6 (PCR) Ref Lab Test Result 11/08/21 11/08/21 11/19/21 08:30 08:30 13:21 WBC 6.8 4.6 L RBC 4.71 4.53 L Hgb 13.7 L 13.0 L Hct 40.8 L 38.8 L MCV 86.6 85.7 MCH 29.1 28.7 MCHC 33.6 33.5 RDW 14.4 14.1 Plt Count 239 199 MPV 9.5 9.6 Immature Gran % (Auto) 0.1 0.2 Neut % (Auto) 64.8 73.1 H Lymph % (Auto) 21.7 16.7 L [place] % (Auto) 9.5 7.2 Eos % (Auto) 3.5 2.4 Baso % (Auto) 0.4 0.4 Lymph # (Auto) 1.5 0.8 L [place] # (Auto) 0.7 0.3 Eos # (Auto) 0.2 0.1 Baso # (Auto) 0.0 0.0 Abs Immat Gran (auto) 0.01 0.01 Absolute Neuts (auto) 4.4 3.3 Absolute Nucleated RBC 0.000 0.000 Nucleated RBC % (auto) 0.0 0.0 ESR PT INR APTT D-Dimer High Sensitivty 165 Sodium Potassium Chloride Carbon Dioxide Anion Gap BUN Creatinine Estim Creat Clear Calc Estimated GFR Random Glucose Fasting Glucose Estimat Average Glucose Hemoglobin A1c % Uric Acid Calcium Magnesium Total Bilirubin AST ALT Alkaline Phosphatase Ammonia Total Creatine Kinase C-Reactive Protein Total Protein Albumin Ceruloplasmin Triglycerides Cholesterol LDL Cholesterol, Calc HDL Cholesterol Vitamin B12 Folate TSH Free T4 Total Testosterone Fr Testosterone Dialys Random Cortisol Urine Color Urine Appearance Urine pH Ur Specific [place] Urine Protein Urine Glucose (UA) Urine Ketones Urine Blood Urine Nitrite Ur Leukocyte Esterase CSF Tube Number CSF Volume CSF Appearance CSF Color CSF WBC CSF RBC CSF Lymphocytes CSF Appearance (b) CSF Glucose CSF Total Protein CSF Lyme IgG (Immblot) CSF Lyme IgG Bands Det CSF Lyme IgM (Immblot) CSF Lyme IgM Bands Det CSF C.neoform/gat PCR CSF CMV DNA (PCR) CSF Enterovirus (PCR) CSF E. coli K1 (PCR) CSF H. influenzae (PCR) CSF HSV I (PCR) CSF HSV II (PCR) CSF L.monocytogenes PCR CSF N. meningitidis PCR CSF Parechovirus (PCR) CSF S. agalactiae (PCR) CSF S. pneumoniae (PCR) CSF VZV (PCR) Ur Arsenic 24 Hour Urine Cadmium 24 Hour Serum Copper Ur Total Volume Ur Copper 24 Hr Urine Lead 24 Hour Urine Mercury 24 Hour Zinc Rheumatoid Factor TRENT Screen TRENT Titer TRENT Titer 2 TRENT Titer 3 TRENT Pattern TRENT Pattern 2 TRENT Pattern 3 Anti-ds DNA Titer (Crith) Anti-ds DNA (Crithidia) T.pallidum Ab (EIA) Lyme Screen IgG & IgM Lyme Progressive Test COVID-19 ([facility]) COVID-19 Clin Com HIV 1&2 Ab/P24 Ag 4thGn HHV-6 (PCR) Ref Lab Test Result 11/19/21 11/22/21 12/14/21 13:21 07:54 08:22 WBC 5.4 RBC 4.27 L Hgb 12.5 L Hct 37.2 L MCV 87.1 MCH 29.3 MCHC 33.6 RDW 14.6 Plt Count 223 MPV 8.6 L Immature Gran % (Auto) 0.4 Neut % (Auto) 73.7 H Lymph % (Auto) 15.1 L [place] % (Auto) 7.6 Eos % (Auto) 2.6 Baso % (Auto) 0.6 Lymph # (Auto) 0.8 L [place] # (Auto) 0.4 Eos # (Auto) 0.1 Baso # (Auto) 0.0 Abs Immat Gran (auto) 0.02 Absolute Neuts (auto) 4.0 Absolute Nucleated RBC 0.000 Nucleated RBC % (auto) 0.0 ESR PT INR APTT D-Dimer High Sensitivty Sodium 140 139 Potassium 4.1 3.7 Chloride 103 101 Carbon Dioxide 27 32 H Anion Gap 14 10 L BUN 13 18 H Creatinine 1.00 1.11 Estim Creat Clear Calc 89.4 80.5 Estimated GFR > 60 > 60 Random Glucose 91 91 Fasting Glucose Estimat Average Glucose Hemoglobin A1c % Uric Acid Calcium 9.3 9.0 Magnesium Total Bilirubin 0.6 AST 16 ALT 22 Alkaline Phosphatase 59 Ammonia Total Creatine Kinase C-Reactive Protein Total Protein 5.8 L Albumin 3.8 Ceruloplasmin Triglycerides Cholesterol LDL Cholesterol, Calc HDL Cholesterol Vitamin B12 Folate TSH Free T4 Total Testosterone Fr Testosterone Dialys Random Cortisol Urine Color Urine Appearance Urine pH Ur Specific [place] Urine Protein Urine Glucose (UA) Urine Ketones Urine Blood Urine Nitrite Ur Leukocyte Esterase CSF Tube Number CSF Volume CSF Appearance CSF Color CSF WBC CSF RBC CSF Lymphocytes CSF Appearance (b) CSF Glucose CSF Total Protein CSF Lyme IgG (Immblot) CSF Lyme IgG Bands Det CSF Lyme IgM (Immblot) CSF Lyme IgM Bands Det CSF C.neoform/gat PCR CSF CMV DNA (PCR) CSF Enterovirus (PCR) CSF E. coli K1 (PCR) CSF H. influenzae (PCR) CSF HSV I (PCR) CSF HSV II (PCR) CSF L.monocytogenes PCR CSF N. meningitidis PCR CSF Parechovirus (PCR) CSF S. agalactiae (PCR) CSF S. pneumoniae (PCR) CSF VZV (PCR) Ur Arsenic 24 Hour Urine Cadmium 24 Hour Serum Copper Ur Total Volume Ur Copper 24 Hr Urine Lead 24 Hour Urine Mercury 24 Hour Zinc Rheumatoid Factor TRENT Screen TRENT Titer TRENT Titer 2 TRENT Titer 3 TRENT Pattern TRENT Pattern 2 TRENT Pattern 3 Anti-ds DNA Titer (Crith) Anti-ds DNA (Crithidia) T.pallidum Ab (EIA) Lyme Screen IgG & IgM Lyme Progressive Test COVID-19 ([facility]) COVID-19 Clin Com HIV 1&2 Ab/P24 Ag 4thGn HHV-6 (PCR) Ref Lab Test Result 12/14/21 12/14/21 12/17/21 08:22 08:23 08:32 WBC RBC Hgb Hct MCV MCH MCHC RDW Plt Count MPV Immature Gran % (Auto) Neut % (Auto) Lymph % (Auto) [place] % (Auto) Eos % (Auto) Baso % (Auto) Lymph # (Auto) [place] # (Auto) Eos # (Auto) Baso # (Auto) Abs Immat Gran (auto) Absolute Neuts (auto) Absolute Nucleated RBC Nucleated RBC % (auto) ESR 9 PT INR APTT D-Dimer High Sensitivty Sodium 137 Potassium 4.5 D Chloride 101 Carbon Dioxide 29 Anion Gap 12 BUN 12 Creatinine 0.94 Estim Creat Clear Calc 104.9 Estimated GFR > 60 Random Glucose 93 Fasting Glucose Estimat Average Glucose Hemoglobin A1c % Uric Acid Calcium 9.2 Magnesium Total Bilirubin 0.4 AST 13 ALT 21 Alkaline Phosphatase 74 D Ammonia Total Creatine Kinase C-Reactive Protein Total Protein 5.9 L Albumin 3.8 Ceruloplasmin Triglycerides Cholesterol LDL Cholesterol, Calc HDL Cholesterol Vitamin B12 377 Folate 7.6 TSH 1.80 Free T4 Total Testosterone Fr Testosterone Dialys Random Cortisol Urine Color Urine Appearance Urine pH Ur Specific [place] Urine Protein Urine Glucose (UA) Urine Ketones Urine Blood Urine Nitrite Ur Leukocyte Esterase CSF Tube Number CSF Volume CSF Appearance CSF Color CSF WBC CSF RBC CSF Lymphocytes CSF Appearance (b) CSF Glucose CSF Total Protein CSF Lyme IgG (Immblot) CSF Lyme IgG Bands Det CSF Lyme IgM (Immblot) CSF Lyme IgM Bands Det CSF C.neoform/gat PCR CSF CMV DNA (PCR) CSF Enterovirus (PCR) CSF E. coli K1 (PCR) CSF H. influenzae (PCR) CSF HSV I (PCR) CSF HSV II (PCR) CSF L.monocytogenes PCR CSF N. meningitidis PCR CSF Parechovirus (PCR) CSF S. agalactiae (PCR) CSF S. pneumoniae (PCR) CSF VZV (PCR) Ur Arsenic 24 Hour Urine Cadmium 24 Hour Serum Copper Ur Total Volume Ur Copper 24 Hr Urine Lead 24 Hour Urine Mercury 24 Hour Zinc Rheumatoid Factor TRENT Screen TRENT Titer TRENT Titer 2 TRENT Titer 3 TRENT Pattern TRENT Pattern 2 TRENT Pattern 3 Anti-ds DNA Titer (Crith) Anti-ds DNA (Crithidia) T.pallidum Ab (EIA) Lyme Screen IgG & IgM Lyme Progressive Test COVID-19 ([facility]) COVID-19 Clin Com HIV 1&2 Ab/P24 Ag 4thGn HHV-6 (PCR) Ref Lab Test Result 12/17/21 12/17/21 12/17/21 08:32 08:32 08:32 WBC RBC Hgb Hct MCV MCH MCHC RDW Plt Count MPV Immature Gran % (Auto) Neut % (Auto) Lymph % (Auto) [place] % (Auto) Eos % (Auto) Baso % (Auto) Lymph # (Auto) [place] # (Auto) Eos # (Auto) Baso # (Auto) Abs Immat Gran (auto) Absolute Neuts (auto) Absolute Nucleated RBC Nucleated RBC % (auto) ESR PT INR APTT D-Dimer High Sensitivty Sodium Potassium Chloride Carbon Dioxide Anion Gap BUN Creatinine Estim Creat Clear Calc Estimated GFR Random Glucose Fasting Glucose Estimat Average Glucose Hemoglobin A1c % Uric Acid Calcium Magnesium Total Bilirubin AST ALT Alkaline Phosphatase Ammonia Total Creatine Kinase C-Reactive Protein 2.10 H Total Protein Albumin Ceruloplasmin Triglycerides Cholesterol LDL Cholesterol, Calc HDL Cholesterol Vitamin B12 Folate TSH Free T4 Total Testosterone Fr Testosterone Dialys Random Cortisol Urine Color Urine Appearance Urine pH Ur Specific [place] Urine Protein Urine Glucose (UA) Urine Ketones Urine Blood Urine Nitrite Ur Leukocyte Esterase CSF Tube Number CSF Volume CSF Appearance CSF Color CSF WBC CSF RBC CSF Lymphocytes CSF Appearance (b) CSF Glucose CSF Total Protein CSF Lyme IgG (Immblot) CSF Lyme IgG Bands Det CSF Lyme IgM (Immblot) CSF Lyme IgM Bands Det CSF C.neoform/gat PCR CSF CMV DNA (PCR) CSF Enterovirus (PCR) CSF E. coli K1 (PCR) CSF H. influenzae (PCR) CSF HSV I (PCR) CSF HSV II (PCR) CSF L.monocytogenes PCR CSF N. meningitidis PCR CSF Parechovirus (PCR) CSF S. agalactiae (PCR) CSF S. pneumoniae (PCR) CSF VZV (PCR) Ur Arsenic 24 Hour Urine Cadmium 24 Hour Serum Copper Ur Total Volume Ur Copper 24 Hr Urine Lead 24 Hour Urine Mercury 24 Hour Zinc Rheumatoid Factor TRENT Screen NEGATIVE TRENT Titer TNP TRENT Titer 2 TNP TRENT Titer 3 TNP TRENT Pattern TNP TRENT Pattern 2 TNP TRENT Pattern 3 TNP Anti-ds DNA Titer (Crith) Anti-ds DNA (Crithidia) T.pallidum Ab (EIA) Nonreactive Lyme Screen IgG & IgM Lyme Progressive Test COVID-19 ([facility]) COVID-19 Clin Com HIV 1&2 Ab/P24 Ag 4thGn HHV-6 (PCR) Ref Lab Test Result 12/17/21 12/17/21 12/22/21 08:32 08:32 14:57 WBC 6.8 RBC 4.29 L Hgb 12.6 L Hct 37.5 L MCV 87.4 MCH 29.4 MCHC 33.6 RDW 14.0 Plt Count 274 MPV 8.7 L Immature Gran % (Auto) 0.4 Neut % (Auto) 74.9 H Lymph % (Auto) 14.5 L [place] % (Auto) 8.5 Eos % (Auto) 1.3 Baso % (Auto) 0.4 Lymph # (Auto) 1.0 L [place] # (Auto) 0.6 Eos # (Auto) 0.1 Baso # (Auto) 0.0 Abs Immat Gran (auto) 0.03 Absolute Neuts (auto) 5.1 Absolute Nucleated RBC 0.000 Nucleated RBC % (auto) 0.0 ESR PT INR APTT D-Dimer High Sensitivty Sodium Potassium Chloride Carbon Dioxide Anion Gap BUN Creatinine Estim Creat Clear Calc Estimated GFR Random Glucose Fasting Glucose Estimat Average Glucose Hemoglobin A1c % Uric Acid Calcium Magnesium Total Bilirubin AST ALT Alkaline Phosphatase Ammonia Total Creatine Kinase C-Reactive Protein Total Protein Albumin Ceruloplasmin Triglycerides Cholesterol LDL Cholesterol, Calc HDL Cholesterol Vitamin B12 Folate TSH Free T4 Total Testosterone 474 Fr Testosterone Dialys 38.4 Random Cortisol Urine Color Urine Appearance Urine pH Ur Specific [place] Urine Protein Urine Glucose (UA) Urine Ketones Urine Blood Urine Nitrite Ur Leukocyte Esterase CSF Tube Number CSF Volume CSF Appearance CSF Color CSF WBC CSF RBC CSF Lymphocytes CSF Appearance (b) CSF Glucose CSF Total Protein CSF Lyme IgG (Immblot) CSF Lyme IgG Bands Det CSF Lyme IgM (Immblot) CSF Lyme IgM Bands Det CSF C.neoform/gat PCR CSF CMV DNA (PCR) CSF Enterovirus (PCR) CSF E. coli K1 (PCR) CSF H. influenzae (PCR) CSF HSV I (PCR) CSF HSV II (PCR) CSF L.monocytogenes PCR CSF N. meningitidis PCR CSF Parechovirus (PCR) CSF S. agalactiae (PCR) CSF S. pneumoniae (PCR) CSF VZV (PCR) Ur Arsenic 24 Hour Urine Cadmium 24 Hour Serum Copper Ur Total Volume Ur Copper 24 Hr Urine Lead 24 Hour Urine Mercury 24 Hour Zinc Rheumatoid Factor TRENT Screen TRENT Titer TRENT Titer 2 TRENT Titer 3 TRENT Pattern TRENT Pattern 2 TRENT Pattern 3 Anti-ds DNA Titer (Crith) Anti-ds DNA (Crithidia) T.pallidum Ab (EIA) Lyme Screen IgG & IgM Lyme Progressive Test COVID-19 ([facility]) COVID-19 Clin Com HIV 1&2 Ab/P24 Ag 4thGn Nonreactive HHV-6 (PCR) Ref Lab Test Result 12/22/21 12/22/21 12/25/21 14:57 18:18 08:08 WBC RBC Hgb Hct MCV MCH MCHC RDW Plt Count MPV Immature Gran % (Auto) Neut % (Auto) Lymph % (Auto) [place] % (Auto) Eos % (Auto) Baso % (Auto) Lymph # (Auto) [place] # (Auto) Eos # (Auto) Baso # (Auto) Abs Immat Gran (auto) Absolute Neuts (auto) Absolute Nucleated RBC Nucleated RBC % (auto) ESR PT INR APTT D-Dimer High Sensitivty Sodium 135 Potassium 4.0 Chloride 98 Carbon Dioxide 30 H Anion Gap 11 L BUN 14 Creatinine 0.98 Estim Creat Clear Calc 100.6 Estimated GFR > 60 Random Glucose 114 Fasting Glucose Estimat Average Glucose Hemoglobin A1c % Uric Acid 4.2 Calcium 9.4 Magnesium Total Bilirubin 0.4 AST 13 ALT 24 Alkaline Phosphatase 91 D Ammonia Total Creatine Kinase C-Reactive Protein Total Protein 6.1 L Albumin 4.1 Ceruloplasmin Triglycerides Cholesterol LDL Cholesterol, Calc HDL Cholesterol Vitamin B12 Folate TSH Free T4 Total Testosterone Fr Testosterone Dialys Random Cortisol Urine Color YELLOW Urine Appearance CLEAR Urine pH 7.0 Ur Specific [place] 1.015 Urine Protein NEG Urine Glucose (UA) NEG Urine Ketones NEG Urine Blood NEG Urine Nitrite NEG Ur Leukocyte Esterase NEG CSF Tube Number CSF Volume CSF Appearance CSF Color CSF WBC CSF RBC CSF Lymphocytes CSF Appearance (b) CSF Glucose CSF Total Protein CSF Lyme IgG (Immblot) CSF Lyme IgG Bands Det CSF Lyme IgM (Immblot) CSF Lyme IgM Bands Det CSF C.neoform/gat PCR CSF CMV DNA (PCR) CSF Enterovirus (PCR) CSF E. coli K1 (PCR) CSF H. influenzae (PCR) CSF HSV I (PCR) CSF HSV II (PCR) CSF L.monocytogenes PCR CSF N. meningitidis PCR CSF Parechovirus (PCR) CSF S. agalactiae (PCR) CSF S. pneumoniae (PCR) CSF VZV (PCR) Ur Arsenic 24 Hour Urine Cadmium 24 Hour Serum Copper Ur Total Volume Ur Copper 24 Hr Urine Lead 24 Hour Urine Mercury 24 Hour Zinc Rheumatoid Factor TRENT Screen TRENT Titer TRENT Titer 2 TRENT Titer 3 TRENT Pattern TRENT Pattern 2 TRENT Pattern 3 Anti-ds DNA Titer (Crith) Anti-ds DNA (Crithidia) T.pallidum Ab (EIA) Lyme Screen IgG & IgM Lyme Progressive Test COVID-19 ([facility]) COVID-19 Clin Com HIV 1&2 Ab/P24 Ag 4thGn HHV-6 (PCR) Ref Lab Test Result 12/27/21 12/27/21 12/27/21 08:00 08:00 08:11 WBC RBC Hgb Hct MCV MCH MCHC RDW Plt Count MPV Immature Gran % (Auto) Neut % (Auto) Lymph % (Auto) [place] % (Auto) Eos % (Auto) Baso % (Auto) Lymph # (Auto) [place] # (Auto) Eos # (Auto) Baso # (Auto) Abs Immat Gran (auto) Absolute Neuts (auto) Absolute Nucleated RBC Nucleated RBC % (auto) ESR PT 12.1 INR 1.1 APTT 38.5 H D-Dimer High Sensitivty Sodium Potassium Chloride Carbon Dioxide Anion Gap BUN Creatinine Estim Creat Clear Calc Estimated GFR Random Glucose Fasting Glucose Estimat Average Glucose Hemoglobin A1c % Uric Acid Calcium Magnesium Total Bilirubin AST ALT Alkaline Phosphatase Ammonia Total Creatine Kinase C-Reactive Protein Total Protein Albumin Ceruloplasmin Triglycerides Cholesterol LDL Cholesterol, Calc HDL Cholesterol Vitamin B12 Folate TSH Free T4 Total Testosterone Fr Testosterone Dialys Random Cortisol Urine Color Urine Appearance Urine pH Ur Specific [place] Urine Protein Urine Glucose (UA) Urine Ketones Urine Blood Urine Nitrite Ur Leukocyte Esterase CSF Tube Number CSF Volume CSF Appearance CSF Color CSF WBC CSF RBC CSF Lymphocytes CSF Appearance (b) CSF Glucose CSF Total Protein CSF Lyme IgG (Immblot) CSF Lyme IgG Bands Det CSF Lyme IgM (Immblot) CSF Lyme IgM Bands Det CSF C.neoform/gat PCR CSF CMV DNA (PCR) CSF Enterovirus (PCR) CSF E. coli K1 (PCR) CSF H. influenzae (PCR) CSF HSV I (PCR) CSF HSV II (PCR) CSF L.monocytogenes PCR CSF N. meningitidis PCR CSF Parechovirus (PCR) CSF S. agalactiae (PCR) CSF S. pneumoniae (PCR) CSF VZV (PCR) Ur Arsenic 24 Hour <10 Urine Cadmium 24 Hour <0.5 Serum Copper Ur Total Volume 1300 Ur Copper 24 Hr 9 L Urine Lead 24 Hour <10 Urine Mercury 24 Hour <4 Zinc Rheumatoid Factor TRENT Screen TRENT Titer TRENT Titer 2 TRENT Titer 3 TRENT Pattern TRENT Pattern 2 TRENT Pattern 3 Anti-ds DNA Titer (Crith) Anti-ds DNA (Crithidia) T.pallidum Ab (EIA) Lyme Screen IgG & IgM Lyme Progressive Test COVID-19 ([facility]) COVID-19 Clin Com HIV 1&2 Ab/P24 Ag 4thGn HHV-6 (PCR) Ref Lab Test Result 12/27/21 12/27/21 12/27/21 08:11 08:11 08:11 WBC RBC Hgb Hct MCV MCH MCHC RDW Plt Count 244 MPV Immature Gran % (Auto) Neut % (Auto) Lymph % (Auto) [place] % (Auto) Eos % (Auto) Baso % (Auto) Lymph # (Auto) [place] # (Auto) Eos # (Auto) Baso # (Auto) Abs Immat Gran (auto) Absolute Neuts (auto) Absolute Nucleated RBC Nucleated RBC % (auto) ESR 13 PT INR APTT D-Dimer High Sensitivty Sodium Potassium Chloride Carbon Dioxide Anion Gap BUN Creatinine Estim Creat Clear Calc Estimated GFR Random Glucose Fasting Glucose Estimat Average Glucose Hemoglobin A1c % Uric Acid Calcium Magnesium Total Bilirubin AST ALT Alkaline Phosphatase Ammonia Total Creatine Kinase 38 C-Reactive Protein Total Protein Albumin Ceruloplasmin Triglycerides Cholesterol LDL Cholesterol, Calc HDL Cholesterol Vitamin B12 Folate TSH Free T4 Total Testosterone Fr Testosterone Dialys Random Cortisol Urine Color Urine Appearance Urine pH Ur Specific [place] Urine Protein Urine Glucose (UA) Urine Ketones Urine Blood Urine Nitrite Ur Leukocyte Esterase CSF Tube Number CSF Volume CSF Appearance CSF Color CSF WBC CSF RBC CSF Lymphocytes CSF Appearance (b) CSF Glucose CSF Total Protein CSF Lyme IgG (Immblot) CSF Lyme IgG Bands Det CSF Lyme IgM (Immblot) CSF Lyme IgM Bands Det CSF C.neoform/gat PCR CSF CMV DNA (PCR) CSF Enterovirus (PCR) CSF E. coli K1 (PCR) CSF H. influenzae (PCR) CSF HSV I (PCR) CSF HSV II (PCR) CSF L.monocytogenes PCR CSF N. meningitidis PCR CSF Parechovirus (PCR) CSF S. agalactiae (PCR) CSF S. pneumoniae (PCR) CSF VZV (PCR) Ur Arsenic 24 Hour Urine Cadmium 24 Hour Serum Copper Ur Total Volume Ur Copper 24 Hr Urine Lead 24 Hour Urine Mercury 24 Hour Zinc Rheumatoid Factor < 15.0 TRENT Screen TRENT Titer TRENT Titer 2 TRENT Titer 3 TRENT Pattern TRENT Pattern 2 TRENT Pattern 3 Anti-ds DNA Titer (Crith) Anti-ds DNA (Crithidia) T.pallidum Ab (EIA) Lyme Screen IgG & IgM Lyme Progressive Test COVID-19 ([facility]) COVID-19 Clin Com HIV 1&2 Ab/P24 Ag 4thGn HHV-6 (PCR) Ref Lab Test Result 12/27/21 12/27/21 12/27/21 08:11 08:11 08:11 WBC RBC Hgb Hct MCV MCH MCHC RDW Plt Count MPV Immature Gran % (Auto) Neut % (Auto) Lymph % (Auto) [place] % (Auto) Eos % (Auto) Baso % (Auto) Lymph # (Auto) [place] # (Auto) Eos # (Auto) Baso # (Auto) Abs Immat Gran (auto) Absolute Neuts (auto) Absolute Nucleated RBC Nucleated RBC % (auto) ESR PT INR APTT D-Dimer High Sensitivty Sodium Potassium Chloride Carbon Dioxide Anion Gap BUN Creatinine Estim Creat Clear Calc Estimated GFR Random Glucose Fasting Glucose Estimat Average Glucose Hemoglobin A1c % Uric Acid Calcium Magnesium Total Bilirubin AST ALT Alkaline Phosphatase Ammonia Total Creatine Kinase C-Reactive Protein Total Protein Albumin Ceruloplasmin 34 Triglycerides Cholesterol LDL Cholesterol, Calc HDL Cholesterol Vitamin B12 Folate TSH Free T4 Total Testosterone Fr Testosterone Dialys Random Cortisol Urine Color Urine Appearance Urine pH Ur Specific [place] Urine Protein Urine Glucose (UA) Urine Ketones Urine Blood Urine Nitrite Ur Leukocyte Esterase CSF Tube Number CSF Volume CSF Appearance CSF Color CSF WBC CSF RBC CSF Lymphocytes CSF Appearance (b) CSF Glucose CSF Total Protein CSF Lyme IgG (Immblot) CSF Lyme IgG Bands Det CSF Lyme IgM (Immblot) CSF Lyme IgM Bands Det CSF C.neoform/gat PCR CSF CMV DNA (PCR) CSF Enterovirus (PCR) CSF E. coli K1 (PCR) CSF H. influenzae (PCR) CSF HSV I (PCR) CSF HSV II (PCR) CSF L.monocytogenes PCR CSF N. meningitidis PCR CSF Parechovirus (PCR) CSF S. agalactiae (PCR) CSF S. pneumoniae (PCR) CSF VZV (PCR) Ur Arsenic 24 Hour Urine Cadmium 24 Hour Serum Copper Ur Total Volume Ur Copper 24 Hr Urine Lead 24 Hour Urine Mercury 24 Hour Zinc Rheumatoid Factor TRENT Screen TRENT Titer TRENT Titer 2 TRENT Titer 3 TRENT Pattern TRENT Pattern 2 TRENT Pattern 3 Anti-ds DNA Titer (Crith) TNP Anti-ds DNA (Crithidia) Negative T.pallidum Ab (EIA) Lyme Screen IgG & IgM <0.90 Lyme Progressive Test TNP COVID-19 ([facility]) COVID-19 Clin Com HIV 1&2 Ab/P24 Ag 4thGn HHV-6 (PCR) Ref Lab Test Result 12/27/21 12/27/21 12/27/21 08:11 13:50 13:50 WBC RBC Hgb Hct MCV MCH MCHC RDW Plt Count MPV Immature Gran % (Auto) Neut % (Auto) Lymph % (Auto) [place] % (Auto) Eos % (Auto) Baso % (Auto) Lymph # (Auto) [place] # (Auto) Eos # (Auto) Baso # (Auto) Abs Immat Gran (auto) Absolute Neuts (auto) Absolute Nucleated RBC Nucleated RBC % (auto) ESR PT INR APTT D-Dimer High Sensitivty Sodium Potassium Chloride Carbon Dioxide Anion Gap BUN Creatinine Estim Creat Clear Calc Estimated GFR Random Glucose Fasting Glucose Estimat Average Glucose Hemoglobin A1c % Uric Acid Calcium Magnesium Total Bilirubin AST ALT Alkaline Phosphatase Ammonia Total Creatine Kinase C-Reactive Protein Total Protein Albumin Ceruloplasmin Triglycerides Cholesterol LDL Cholesterol, Calc HDL Cholesterol Vitamin B12 Folate TSH Free T4 Total Testosterone Fr Testosterone Dialys Random Cortisol Urine Color Urine Appearance Urine pH Ur Specific [place] Urine Protein Urine Glucose (UA) Urine Ketones Urine Blood Urine Nitrite Ur Leukocyte Esterase CSF Tube Number CSF Volume CSF Appearance CSF Color CSF WBC CSF RBC CSF Lymphocytes CSF Appearance (b) CSF Glucose CSF Total Protein CSF Lyme IgG (Immblot) CSF Lyme IgG Bands Det CSF Lyme IgM (Immblot) CSF Lyme IgM Bands Det CSF C.neoform/gat PCR Not Detected CSF CMV DNA (PCR) Not Detected CSF Enterovirus (PCR) Not Detected CSF E. coli K1 (PCR) Not Detected CSF H. influenzae (PCR) Not Detected CSF HSV I (PCR) Not Detected CSF HSV II (PCR) Not Detected CSF L.monocytogenes PCR Not Detected CSF N. meningitidis PCR Not Detected CSF Parechovirus (PCR) Not Detected CSF S. agalactiae (PCR) Not Detected CSF S. pneumoniae (PCR) Not Detected CSF VZV (PCR) Not Detected Ur Arsenic 24 Hour Urine Cadmium 24 Hour Serum Copper 154 Ur Total Volume Ur Copper 24 Hr Urine Lead 24 Hour Urine Mercury 24 Hour Zinc Rheumatoid Factor TRENT Screen TRENT Titer TRENT Titer 2 TRENT Titer 3 TRENT Pattern TRENT Pattern 2 TRENT Pattern 3 Anti-ds DNA Titer (Crith) Anti-ds DNA (Crithidia) T.pallidum Ab (EIA) Lyme Screen IgG & IgM Lyme Progressive Test COVID-19 ([facility]) COVID-19 Clin Com HIV 1&2 Ab/P24 Ag 4thGn HHV-6 (PCR) Not Detected Ref Lab Test Result See Note 12/27/21 12/27/21 12/27/21 13:50 13:50 13:50 WBC RBC Hgb Hct MCV MCH MCHC RDW Plt Count MPV Immature Gran % (Auto) Neut % (Auto) Lymph % (Auto) [place] % (Auto) Eos % (Auto) Baso % (Auto) Lymph # (Auto) [place] # (Auto) Eos # (Auto) Baso # (Auto) Abs Immat Gran (auto) Absolute Neuts (auto) Absolute Nucleated RBC Nucleated RBC % (auto) ESR PT INR APTT D-Dimer High Sensitivty Sodium Potassium Chloride Carbon Dioxide Anion Gap BUN Creatinine Estim Creat Clear Calc Estimated GFR Random Glucose Fasting Glucose Estimat Average Glucose Hemoglobin A1c % Uric Acid Calcium Magnesium Total Bilirubin AST ALT Alkaline Phosphatase Ammonia Total Creatine Kinase C-Reactive Protein Total Protein Albumin Ceruloplasmin Triglycerides Cholesterol LDL Cholesterol, Calc HDL Cholesterol Vitamin B12 Folate TSH Free T4 Total Testosterone Fr Testosterone Dialys Random Cortisol Urine Color Urine Appearance Urine pH Ur Specific [place] Urine Protein Urine Glucose (UA) Urine Ketones Urine Blood Urine Nitrite Ur Leukocyte Esterase CSF Tube Number 1 4 CSF Volume 4.0 CSF Appearance CLEAR CSF Color COLORLESS CSF WBC 1 CSF RBC 0 CSF Lymphocytes 100 CSF Appearance (b) Clear, Colorless CSF Glucose 57 CSF Total Protein 39.8 CSF Lyme IgG (Immblot) NO BANDS DETECTED CSF Lyme IgG Bands Det TNP CSF Lyme IgM (Immblot) NO BANDS DETECTED CSF Lyme IgM Bands Det TNP CSF C.neoform/gat PCR CSF CMV DNA (PCR) CSF Enterovirus (PCR) CSF E. coli K1 (PCR) CSF H. influenzae (PCR) CSF HSV I (PCR) CSF HSV II (PCR) CSF L.monocytogenes PCR CSF N. meningitidis PCR CSF Parechovirus (PCR) CSF S. agalactiae (PCR) CSF S. pneumoniae (PCR) CSF VZV (PCR) Ur Arsenic 24 Hour Urine Cadmium 24 Hour Serum Copper Ur Total Volume Ur Copper 24 Hr Urine Lead 24 Hour Urine Mercury 24 Hour Zinc Rheumatoid Factor TRENT Screen TRENT Titer TRENT Titer 2 TRENT Titer 3 TRENT Pattern TRENT Pattern 2 TRENT Pattern 3 Anti-ds DNA Titer (Crith) Anti-ds DNA (Crithidia) T.pallidum Ab (EIA) Lyme Screen IgG & IgM Lyme Progressive Test COVID-19 ([facility]) COVID-19 Clin Com HIV 1&2 Ab/P24 Ag 4thGn HHV-6 (PCR) Ref Lab Test Result 12/29/21 12/29/21 01/04/22 07:18 07:18 08:12 WBC RBC Hgb Hct MCV MCH MCHC RDW Plt Count MPV Immature Gran % (Auto) Neut % (Auto) Lymph % (Auto) [place] % (Auto) Eos % (Auto) Baso % (Auto) Lymph # (Auto) [place] # (Auto) Eos # (Auto) Baso # (Auto) Abs Immat Gran (auto) Absolute Neuts (auto) Absolute Nucleated RBC Nucleated RBC % (auto) ESR PT INR APTT D-Dimer High Sensitivty Sodium Potassium Chloride Carbon Dioxide Anion Gap BUN Creatinine Estim Creat Clear Calc Estimated GFR Random Glucose Fasting Glucose Estimat Average Glucose Hemoglobin A1c % Uric Acid Calcium Magnesium Total Bilirubin AST ALT Alkaline Phosphatase Ammonia 26 Total Creatine Kinase C-Reactive Protein Total Protein Albumin 3.7 Ceruloplasmin Triglycerides Cholesterol LDL Cholesterol, Calc HDL Cholesterol Vitamin B12 Folate TSH Free T4 Total Testosterone Fr Testosterone Dialys Random Cortisol 18.3 Urine Color Urine Appearance Urine pH Ur Specific [place] Urine Protein Urine Glucose (UA) Urine Ketones Urine Blood Urine Nitrite Ur Leukocyte Esterase CSF Tube Number CSF Volume CSF Appearance CSF Color CSF WBC CSF RBC CSF Lymphocytes CSF Appearance (b) CSF Glucose CSF Total Protein CSF Lyme IgG (Immblot) CSF Lyme IgG Bands Det CSF Lyme IgM (Immblot) CSF Lyme IgM Bands Det CSF C.neoform/gat PCR CSF CMV DNA (PCR) CSF Enterovirus (PCR) CSF E. coli K1 (PCR) CSF H. influenzae (PCR) CSF HSV I (PCR) CSF HSV II (PCR) CSF L.monocytogenes PCR CSF N. meningitidis PCR CSF Parechovirus (PCR) CSF S. agalactiae (PCR) CSF S. pneumoniae (PCR) CSF VZV (PCR) Ur Arsenic 24 Hour Urine Cadmium 24 Hour Serum Copper Ur Total Volume Ur Copper 24 Hr Urine Lead 24 Hour Urine Mercury 24 Hour Zinc Rheumatoid Factor TRENT Screen TRENT Titer TRENT Titer 2 TRENT Titer 3 TRENT Pattern TRENT Pattern 2 TRENT Pattern 3 Anti-ds DNA Titer (Crith) Anti-ds DNA (Crithidia) T.pallidum Ab (EIA) Lyme Screen IgG & IgM Lyme Progressive Test COVID-19 ([facility]) COVID-19 Clin Com HIV 1&2 Ab/P24 Ag 4thGn HHV-6 (PCR) Ref Lab Test Result 01/04/22 01/28/22 01/28/22 08:12 11:08 11:08 WBC 4.0 L RBC 4.84 Hgb 13.6 L Hct 41.8 L MCV 86.4 MCH 28.1 MCHC 32.5 RDW 14.0 Plt Count 170 D MPV 9.6 Immature Gran % (Auto) 0.5 H Neut % (Auto) 67.6 Lymph % (Auto) 22.6 [place] % (Auto) 7.0 Eos % (Auto) 1.8 Baso % (Auto) 0.5 Lymph # (Auto) 0.9 L [place] # (Auto) 0.3 Eos # (Auto) 0.1 Baso # (Auto) 0.0 Abs Immat Gran (auto) 0.02 Absolute Neuts (auto) 2.7 Absolute Nucleated RBC 0.000 Nucleated RBC % (auto) 0.0 ESR PT INR APTT D-Dimer High Sensitivty Sodium 143 Potassium 4.2 Chloride 107 Carbon Dioxide 29 Anion Gap 11 L BUN 18 H Creatinine 1.12 Estim Creat Clear Calc 79.8 Estimated GFR > 60 Random Glucose 99 Fasting Glucose Estimat Average Glucose Hemoglobin A1c % Uric Acid Calcium 9.3 Magnesium Total Bilirubin 0.3 AST 8 ALT 7 Alkaline Phosphatase 69 D Ammonia Total Creatine Kinase C-Reactive Protein Total Protein 5.9 L Albumin 3.8 Ceruloplasmin Triglycerides Cholesterol LDL Cholesterol, Calc HDL Cholesterol Vitamin B12 Folate TSH Free T4 Total Testosterone Fr Testosterone Dialys Random Cortisol Urine Color Urine Appearance Urine pH Ur Specific [place] Urine Protein Urine Glucose (UA) Urine Ketones Urine Blood Urine Nitrite Ur Leukocyte Esterase CSF Tube Number CSF Volume CSF Appearance CSF Color CSF WBC CSF RBC CSF Lymphocytes CSF Appearance (b) CSF Glucose CSF Total Protein CSF Lyme IgG (Immblot) CSF Lyme IgG Bands Det CSF Lyme IgM (Immblot) CSF Lyme IgM Bands Det CSF C.neoform/gat PCR CSF CMV DNA (PCR) CSF Enterovirus (PCR) CSF E. coli K1 (PCR) CSF H. influenzae (PCR) CSF HSV I (PCR) CSF HSV II (PCR) CSF L.monocytogenes PCR CSF N. meningitidis PCR CSF Parechovirus (PCR) CSF S. agalactiae (PCR) CSF S. pneumoniae (PCR) CSF VZV (PCR) Ur Arsenic 24 Hour Urine Cadmium 24 Hour Serum Copper Ur Total Volume Ur Copper 24 Hr Urine Lead 24 Hour Urine Mercury 24 Hour Zinc 64 Rheumatoid Factor TRENT Screen TRENT Titer TRENT Titer 2 TRENT Titer 3 TRENT Pattern TRENT Pattern 2 TRENT Pattern 3 Anti-ds DNA Titer (Crith) Anti-ds DNA (Crithidia) T.pallidum Ab (EIA) Lyme Screen IgG & IgM Lyme Progressive Test COVID-19 ([facility]) COVID-19 Clin Com HIV 1&2 Ab/P24 Ag 4thGn HHV-6 (PCR) Ref Lab Test Result 01/29/22 01/29/22 01/29/22 08:08 08:08 09:08 WBC RBC Hgb Hct MCV MCH MCHC RDW Plt Count MPV Immature Gran % (Auto) Neut % (Auto) Lymph % (Auto) [place] % (Auto) Eos % (Auto) Baso % (Auto) Lymph # (Auto) [place] # (Auto) Eos # (Auto) Baso # (Auto) Abs Immat Gran (auto) Absolute Neuts (auto) Absolute Nucleated RBC Nucleated RBC % (auto) ESR PT INR APTT D-Dimer High Sensitivty Sodium Potassium Chloride Carbon Dioxide Anion Gap BUN Creatinine Estim Creat Clear Calc Estimated GFR Random Glucose Fasting Glucose Estimat Average Glucose 97 Hemoglobin A1c % 5.0 Uric Acid Calcium Magnesium Total Bilirubin AST ALT Alkaline Phosphatase Ammonia Total Creatine Kinase C-Reactive Protein Total Protein Albumin Ceruloplasmin Triglycerides 116 Cholesterol 222 D LDL Cholesterol, Calc 170 HDL Cholesterol 29 Vitamin B12 Folate TSH Free T4 Total Testosterone Fr Testosterone Dialys Random Cortisol Urine Color Urine Appearance Urine pH Ur Specific [place] Urine Protein Urine Glucose (UA) Urine Ketones Urine Blood Urine Nitrite Ur Leukocyte Esterase CSF Tube Number CSF Volume CSF Appearance CSF Color CSF WBC CSF RBC CSF Lymphocytes CSF Appearance (b) CSF Glucose CSF Total Protein CSF Lyme IgG (Immblot) CSF Lyme IgG Bands Det CSF Lyme IgM (Immblot) CSF Lyme IgM Bands Det CSF C.neoform/gat PCR CSF CMV DNA (PCR) CSF Enterovirus (PCR) CSF E. coli K1 (PCR) CSF H. influenzae (PCR) CSF HSV I (PCR) CSF HSV II (PCR) CSF L.monocytogenes PCR CSF N. meningitidis PCR CSF Parechovirus (PCR) CSF S. agalactiae (PCR) CSF S. pneumoniae (PCR) CSF VZV (PCR) Ur Arsenic 24 Hour Urine Cadmium 24 Hour Serum Copper Ur Total Volume Ur Copper 24 Hr Urine Lead 24 Hour Urine Mercury 24 Hour Zinc Rheumatoid Factor TRENT Screen TRENT Titer TRENT Titer 2 TRENT Titer 3 TRENT Pattern TRENT Pattern 2 TRENT Pattern 3 Anti-ds DNA Titer (Crith) Anti-ds DNA (Crithidia) T.pallidum Ab (EIA) Lyme Screen IgG & IgM Lyme Progressive Test COVID-19 ([facility]) Negative COVID-19 Clin Com See Note HIV 1&2 Ab/P24 Ag 4thGn HHV-6 (PCR) Ref Lab Test Result Assessment and Plan Final Anesthetic Review Family History of Problems with Anesthesia: No History of Problems with Anesthesia: No
--- NOTE | 2022-02-04 09:45 | P.CONAN_ITS ---
FORMERLY [facility], [facility] Active Problems Active Problems: All Active Problems (Updated 01/29/22 @ 16:28 by Ethan Guidry MD) Constipation (Acute) Pre-op exam (Acute) Encephalopathy chronic (Acute) Paronychia of finger of left hand (Acute) MDD (major depressive disorder), recurrent, severe, with psychosis (Acute) Routine medical exam (Acute) Past Medical History Medical History Gram-negative bacteremia Functional capacity: independent ambulation Family History Family history of problems with anesthesia: No Surgical History History of Problems with Anesthesia: No Social History Social History Household Members: Spouse and Children Household Members Other:: and Three Children ages 11, 13, 15 Housing: House Do you presently have visiting nurse or other home services: No Patient Tobacco Use Status: Never used Tobacco Use of substances other than those prescribed or required for medical reasons: No Currently Displaying Signs/Symptoms of Drug Intoxication Withdrawal: No Have you been hit, kicked, punched, or otherwise hurt by someone within the past year? If so, by whom?: No Do you feel safe in your current relationship?: Yes Is there a partner from a previous relationship who is making you feel unsafe now?: No Are you made to feel afraid or neglected: No Advance Directives: No Advance Directives Information Provided: No Do you have thoughts of harming others: None Do you have a plan to hurt others: No Plan Recently lost weight without trying: No Eating poorly because of decreased appetite: No Nutrition Risks: No Nutritional Risk Poor oral hygiene: No service: No ([employer] App [id number]'s) Sexual orientation: Straight/Heterosexual Meds Allergies Allergy/AdvReac Type Severity Reaction Status Date / Time No Known Allergies Allergy Unverified 11/07/21 21:23 Active Medications: Current Medications Acetaminophen (Acetaminophen 325 Mg Tablet) 650 mg PO Q6H PRN PRN Reason: Headache/Pain Mild Scale (1-3) Last Admin: 01/30/22 10:33 Dose: 650 mg Documented by: Al Hydroxide/Mg Hydroxide (Magnesium Hydrox/Alum Hydrox 30 Ml Oral.Susp) 30 ml PO Q6H PRN PRN Reason: Heartburn/Nausea Amantadine HCl (Amantadine Hcl 100 Mg Capsule) 100 mg PO BID ANISHA Last Admin: 02/03/22 20:30 Dose: 100 mg Documented by: Ferrous Sulfate (Ferrous Sulfate 324 Mg Tablet.) 324 mg PO BEDTIME [facility] Last Admin: 02/03/22 20:31 Dose: 324 mg Documented by: Hydroxyzine HCl (Hydroxyzine Hcl 25 Mg Tablet) 25 mg PO Q6H PRN PRN Reason: Anxiety Last Admin: 12/16/21 22:28 Dose: 25 mg Documented by: Ibuprofen (Ibuprofen 800 Mg Tablet) 800 mg PO Q8H PRN PRN Reason: Pain, Mild (Pain Scale 1-3) Loperamide HCl (Loperamide Hcl 2 Mg Capsule) 2 mg PO Q6H PRN PRN Reason: Diarrhea Last Admin: 11/17/21 13:40 Dose: 2 mg Documented by: Magnesium Hydroxide (Milk Of Magnesia 30 Ml Oral.Susp) 30 ml PO DAILY PRN PRN Reason: Constipation Omeprazole (Omeprazole 40 Mg Capsule.) 40 mg PO DAILY@0630 [facility] Last Admin: 02/04/22 06:10 Dose: 40 mg Documented by: Polyethylene Glycol (Polyethylene Glycol 3350 17 Gm Powd.Pack) 17 gm PO DAILY [facility] Last Admin: 02/03/22 08:33 Dose: Not Given Documented by: Psyllium Hydrophilic Mucilloid (Psyllium Seed 3.4 Gm Powd.Pack) 3.4 gm PO BEDTIME [facility] Last Admin: 02/03/22 15:38 Dose: Not Given Documented by: Risperidone (Risperidone 1 Mg Tablet) 1 mg PO BID [facility] Last Admin: 02/03/22 20:30 Dose: 1 mg Documented by: Sucralfate (Sucralfate 1 Gm Tablet) 1 gm PO TID [facility] Last Admin: 02/03/22 20:30 Dose: 1 gm Documented by: Trazodone HCl (Trazodone Hcl 50 Mg Tablet) 50 mg PO BEDTIME PRN PRN Reason: Insomnia Home Medications Medication Instructions Recorded Confirmed Last Taken Type acetaminophen 500 mg tablet 500 mg PO Q6-8H PRN 12/13/21 12/13/21 Unknown History (Acetaminophen Extra Strength) Exam Exam Date and Time: February 04, 2022 0945 Height,Weight and Vital Signs: Height 6 ft Weight 88.2 kg Last Vital Signs Temp 98.3 F 02/04/22 08:55 Pulse 81 02/04/22 09:40 Resp 17 02/04/22 09:40 BP 130/88 02/04/22 09:40 Pulse Ox 96 02/04/22 09:40 Pertinent Lab Results Pertinent Lab Results: Laboratory Tests 11/08/21 11/08/21 11/08/21 08:30 08:30 08:30 WBC RBC Hgb Hct MCV MCH MCHC RDW Plt Count MPV Immature Gran % (Auto) Neut % (Auto) Lymph % (Auto) [place] % (Auto) Eos % (Auto) Baso % (Auto) Lymph # (Auto) [place] # (Auto) Eos # (Auto) Baso # (Auto) Abs Immat Gran (auto) Absolute Neuts (auto) Absolute Nucleated RBC Nucleated RBC % (auto) ESR PT INR APTT D-Dimer High Sensitivty Sodium 142 Potassium 4.0 Chloride 103 Carbon Dioxide 32 H Anion Gap 11 L BUN 18 H Creatinine 1.13 Estim Creat Clear Calc TNP Estimated GFR > 60 Random Glucose Fasting Glucose 101 H Estimat Average Glucose 103 Hemoglobin A1c % 5.2 Uric Acid Calcium 9.5 Magnesium 2.4 Total Bilirubin 1.1 H AST 16 ALT 33 Alkaline Phosphatase 63 Ammonia Total Creatine Kinase C-Reactive Protein Total Protein 6.1 L Albumin 4.1 Ceruloplasmin Triglycerides 117 Cholesterol 142 LDL Cholesterol, Calc 91 HDL Cholesterol 28 Vitamin B12 619 Folate 7.0 TSH 1.84 Free T4 1.10 Total Testosterone Fr Testosterone Dialys Random Cortisol Urine Color Urine Appearance Urine pH Ur Specific [place] Urine Protein Urine Glucose (UA) Urine Ketones Urine Blood Urine Nitrite Ur Leukocyte Esterase CSF Tube Number CSF Volume CSF Appearance CSF Color CSF WBC CSF RBC CSF Lymphocytes CSF Appearance (b) CSF Glucose CSF Total Protein CSF Lyme IgG (Immblot) CSF Lyme IgG Bands Det CSF Lyme IgM (Immblot) CSF Lyme IgM Bands Det CSF C.neoform/gat PCR CSF CMV DNA (PCR) CSF Enterovirus (PCR) CSF E. coli K1 (PCR) CSF H. influenzae (PCR) CSF HSV I (PCR) CSF HSV II (PCR) CSF L.monocytogenes PCR CSF N. meningitidis PCR CSF Parechovirus (PCR) CSF S. agalactiae (PCR) CSF S. pneumoniae (PCR) CSF VZV (PCR) Ur Arsenic 24 Hour Urine Cadmium 24 Hour Serum Copper Ur Total Volume Ur Copper 24 Hr Urine Lead 24 Hour Urine Mercury 24 Hour Zinc Rheumatoid Factor TRENT Screen TRENT Titer TRENT Titer 2 TRENT Titer 3 TRENT Pattern TRENT Pattern 2 TRENT Pattern 3 Anti-ds DNA Titer (Crith) Anti-ds DNA (Crithidia) T.pallidum Ab (EIA) Lyme Screen IgG & IgM Lyme Progressive Test COVID-19 (HOLLI) COVID-19 Clin Com HIV 1&2 Ab/P24 Ag 4thGn HHV-6 (PCR) Ref Lab Test Result 11/08/21 11/08/21 11/19/21 08:30 08:30 13:21 WBC 6.8 4.6 L RBC 4.71 4.53 L Hgb 13.7 L 13.0 L Hct 40.8 L 38.8 L MCV 86.6 85.7 MCH 29.1 28.7 MCHC 33.6 33.5 RDW 14.4 14.1 Plt Count 239 199 MPV 9.5 9.6 Immature Gran % (Auto) 0.1 0.2 Neut % (Auto) 64.8 73.1 H Lymph % (Auto) 21.7 16.7 L [place] % (Auto) 9.5 7.2 Eos % (Auto) 3.5 2.4 Baso % (Auto) 0.4 0.4 Lymph # (Auto) 1.5 0.8 L [place] # (Auto) 0.7 0.3 Eos # (Auto) 0.2 0.1 Baso # (Auto) 0.0 0.0 Abs Immat Gran (auto) 0.01 0.01 Absolute Neuts (auto) 4.4 3.3 Absolute Nucleated RBC 0.000 0.000 Nucleated RBC % (auto) 0.0 0.0 ESR PT INR APTT D-Dimer High Sensitivty 165 Sodium Potassium Chloride Carbon Dioxide Anion Gap BUN Creatinine Estim Creat Clear Calc Estimated GFR Random Glucose Fasting Glucose Estimat Average Glucose Hemoglobin A1c % Uric Acid Calcium Magnesium Total Bilirubin AST ALT Alkaline Phosphatase Ammonia Total Creatine Kinase C-Reactive Protein Total Protein Albumin Ceruloplasmin Triglycerides Cholesterol LDL Cholesterol, Calc HDL Cholesterol Vitamin B12 Folate TSH Free T4 Total Testosterone Fr Testosterone Dialys Random Cortisol Urine Color Urine Appearance Urine pH Ur Specific [place] Urine Protein Urine Glucose (UA) Urine Ketones Urine Blood Urine Nitrite Ur Leukocyte Esterase CSF Tube Number CSF Volume CSF Appearance CSF Color CSF WBC CSF RBC CSF Lymphocytes CSF Appearance (b) CSF Glucose CSF Total Protein CSF Lyme IgG (Immblot) CSF Lyme IgG Bands Det CSF Lyme IgM (Immblot) CSF Lyme IgM Bands Det CSF C.neoform/gat PCR CSF CMV DNA (PCR) CSF Enterovirus (PCR) CSF E. coli K1 (PCR) CSF H. influenzae (PCR) CSF HSV I (PCR) CSF HSV II (PCR) CSF L.monocytogenes PCR CSF N. meningitidis PCR CSF Parechovirus (PCR) CSF S. agalactiae (PCR) CSF S. pneumoniae (PCR) CSF VZV (PCR) Ur Arsenic 24 Hour Urine Cadmium 24 Hour Serum Copper Ur Total Volume Ur Copper 24 Hr Urine Lead 24 Hour Urine Mercury 24 Hour Zinc Rheumatoid Factor TRENT Screen TRENT Titer TRENT Titer 2 TRENT Titer 3 TRENT Pattern TRENT Pattern 2 TRENT Pattern 3 Anti-ds DNA Titer (Crith) Anti-ds DNA (Crithidia) T.pallidum Ab (EIA) Lyme Screen IgG & IgM Lyme Progressive Test COVID-19 (HOLLI) COVID-19 Clin Com HIV 1&2 Ab/P24 Ag 4thGn HHV-6 (PCR) Ref Lab Test Result 11/19/21 11/22/21 12/14/21 13:21 07:54 08:22 WBC 5.4 RBC 4.27 L Hgb 12.5 L Hct 37.2 L MCV 87.1 MCH 29.3 MCHC 33.6 RDW 14.6 Plt Count 223 MPV 8.6 L Immature Gran % (Auto) 0.4 Neut % (Auto) 73.7 H Lymph % (Auto) 15.1 L [place] % (Auto) 7.6 Eos % (Auto) 2.6 Baso % (Auto) 0.6 Lymph # (Auto) 0.8 L [place] # (Auto) 0.4 Eos # (Auto) 0.1 Baso # (Auto) 0.0 Abs Immat Gran (auto) 0.02 Absolute Neuts (auto) 4.0 Absolute Nucleated RBC 0.000 Nucleated RBC % (auto) 0.0 ESR PT INR APTT D-Dimer High Sensitivty Sodium 140 139 Potassium 4.1 3.7 Chloride 103 101 Carbon Dioxide 27 32 H Anion Gap 14 10 L BUN 13 18 H Creatinine 1.00 1.11 Estim Creat Clear Calc 89.4 80.5 Estimated GFR > 60 > 60 Random Glucose 91 91 Fasting Glucose Estimat Average Glucose Hemoglobin A1c % Uric Acid Calcium 9.3 9.0 Magnesium Total Bilirubin 0.6 AST 16 ALT 22 Alkaline Phosphatase 59 Ammonia Total Creatine Kinase C-Reactive Protein Total Protein 5.8 L Albumin 3.8 Ceruloplasmin Triglycerides Cholesterol LDL Cholesterol, Calc HDL Cholesterol Vitamin B12 Folate TSH Free T4 Total Testosterone Fr Testosterone Dialys Random Cortisol Urine Color Urine Appearance Urine pH Ur Specific [place] Urine Protein Urine Glucose (UA) Urine Ketones Urine Blood Urine Nitrite Ur Leukocyte Esterase CSF Tube Number CSF Volume CSF Appearance CSF Color CSF WBC CSF RBC CSF Lymphocytes CSF Appearance (b) CSF Glucose CSF Total Protein CSF Lyme IgG (Immblot) CSF Lyme IgG Bands Det CSF Lyme IgM (Immblot) CSF Lyme IgM Bands Det CSF C.neoform/gat PCR CSF CMV DNA (PCR) CSF Enterovirus (PCR) CSF E. coli K1 (PCR) CSF H. influenzae (PCR) CSF HSV I (PCR) CSF HSV II (PCR) CSF L.monocytogenes PCR CSF N. meningitidis PCR CSF Parechovirus (PCR) CSF S. agalactiae (PCR) CSF S. pneumoniae (PCR) CSF VZV (PCR) Ur Arsenic 24 Hour Urine Cadmium 24 Hour Serum Copper Ur Total Volume Ur Copper 24 Hr Urine Lead 24 Hour Urine Mercury 24 Hour Zinc Rheumatoid Factor TRENT Screen TRENT Titer TRENT Titer 2 TRENT Titer 3 TRENT Pattern TRENT Pattern 2 TRENT Pattern 3 Anti-ds DNA Titer (Crith) Anti-ds DNA (Crithidia) T.pallidum Ab (EIA) Lyme Screen IgG & IgM Lyme Progressive Test COVID-19 ([facility]LLI) COVID-19 Clin Com HIV 1&2 Ab/P24 Ag 4thGn HHV-6 (PCR) Ref Lab Test Result 12/14/21 12/14/21 12/17/21 08:22 08:23 08:32 WBC RBC Hgb Hct MCV MCH MCHC RDW Plt Count MPV Immature Gran % (Auto) Neut % (Auto) Lymph % (Auto) [place] % (Auto) Eos % (Auto) Baso % (Auto) Lymph # (Auto) [place] # (Auto) Eos # (Auto) Baso # (Auto) Abs Immat Gran (auto) Absolute Neuts (auto) Absolute Nucleated RBC Nucleated RBC % (auto) ESR 9 PT INR APTT D-Dimer High Sensitivty Sodium 137 Potassium 4.5 D Chloride 101 Carbon Dioxide 29 Anion Gap 12 BUN 12 Creatinine 0.94 Estim Creat Clear Calc 104.9 Estimated GFR > 60 Random Glucose 93 Fasting Glucose Estimat Average Glucose Hemoglobin A1c % Uric Acid Calcium 9.2 Magnesium Total Bilirubin 0.4 AST 13 ALT 21 Alkaline Phosphatase 74 D Ammonia Total Creatine Kinase C-Reactive Protein Total Protein 5.9 L Albumin 3.8 Ceruloplasmin Triglycerides Cholesterol LDL Cholesterol, Calc HDL Cholesterol Vitamin B12 377 Folate 7.6 TSH 1.80 Free T4 Total Testosterone Fr Testosterone Dialys Random Cortisol Urine Color Urine Appearance Urine pH Ur Specific [place] Urine Protein Urine Glucose (UA) Urine Ketones Urine Blood Urine Nitrite Ur Leukocyte Esterase CSF Tube Number CSF Volume CSF Appearance CSF Color CSF WBC CSF RBC CSF Lymphocytes CSF Appearance (b) CSF Glucose CSF Total Protein CSF Lyme IgG (Immblot) CSF Lyme IgG Bands Det CSF Lyme IgM (Immblot) CSF Lyme IgM Bands Det CSF C.neoform/gat PCR CSF CMV DNA (PCR) CSF Enterovirus (PCR) CSF E. coli K1 (PCR) CSF H. influenzae (PCR) CSF HSV I (PCR) CSF HSV II (PCR) CSF L.monocytogenes PCR CSF N. meningitidis PCR CSF Parechovirus (PCR) CSF S. agalactiae (PCR) CSF S. pneumoniae (PCR) CSF VZV (PCR) Ur Arsenic 24 Hour Urine Cadmium 24 Hour Serum Copper Ur Total Volume Ur Copper 24 Hr Urine Lead 24 Hour Urine Mercury 24 Hour Zinc Rheumatoid Factor TRENT Screen TRENT Titer TRENT Titer 2 TRENT Titer 3 TRENT Pattern TRENT Pattern 2 TRENT Pattern 3 Anti-ds DNA Titer (Crith) Anti-ds DNA (Crithidia) T.pallidum Ab (EIA) Lyme Screen IgG & IgM Lyme Progressive Test COVID-19 ([facility]LLI) COVID-19 Clin Com HIV 1&2 Ab/P24 Ag 4thGn HHV-6 (PCR) Ref Lab Test Result 12/17/21 12/17/21 12/17/21 08:32 08:32 08:32 WBC RBC Hgb Hct MCV MCH MCHC RDW Plt Count MPV Immature Gran % (Auto) Neut % (Auto) Lymph % (Auto) [place] % (Auto) Eos % (Auto) Baso % (Auto) Lymph # (Auto) [place] # (Auto) Eos # (Auto) Baso # (Auto) Abs Immat Gran (auto) Absolute Neuts (auto) Absolute Nucleated RBC Nucleated RBC % (auto) ESR PT INR APTT D-Dimer High Sensitivty Sodium Potassium Chloride Carbon Dioxide Anion Gap BUN Creatinine Estim Creat Clear Calc Estimated GFR Random Glucose Fasting Glucose Estimat Average Glucose Hemoglobin A1c % Uric Acid Calcium Magnesium Total Bilirubin AST ALT Alkaline Phosphatase Ammonia Total Creatine Kinase C-Reactive Protein 2.10 H Total Protein Albumin Ceruloplasmin Triglycerides Cholesterol LDL Cholesterol, Calc HDL Cholesterol Vitamin B12 Folate TSH Free T4 Total Testosterone Fr Testosterone Dialys Random Cortisol Urine Color Urine Appearance Urine pH Ur Specific [place] Urine Protein Urine Glucose (UA) Urine Ketones Urine Blood Urine Nitrite Ur Leukocyte Esterase CSF Tube Number CSF Volume CSF Appearance CSF Color CSF WBC CSF RBC CSF Lymphocytes CSF Appearance (b) CSF Glucose CSF Total Protein CSF Lyme IgG (Immblot) CSF Lyme IgG Bands Det CSF Lyme IgM (Immblot) CSF Lyme IgM Bands Det CSF C.neoform/gat PCR CSF CMV DNA (PCR) CSF Enterovirus (PCR) CSF E. coli K1 (PCR) CSF H. influenzae (PCR) CSF HSV I (PCR) CSF HSV II (PCR) CSF L.monocytogenes PCR CSF N. meningitidis PCR CSF Parechovirus (PCR) CSF S. agalactiae (PCR) CSF S. pneumoniae (PCR) CSF VZV (PCR) Ur Arsenic 24 Hour Urine Cadmium 24 Hour Serum Copper Ur Total Volume Ur Copper 24 Hr Urine Lead 24 Hour Urine Mercury 24 Hour Zinc Rheumatoid Factor TRENT Screen NEGATIVE TRENT Titer TNP TRENT Titer 2 TNP TRENT Titer 3 TNP TRENT Pattern TNP TRENT Pattern 2 TNP TRENT Pattern 3 TNP Anti-ds DNA Titer (Crith) Anti-ds DNA (Crithidia) T.pallidum Ab (EIA) Nonreactive Lyme Screen IgG & IgM Lyme Progressive Test COVID-19 (HOLLI) COVID-19 Clin Com HIV 1&2 Ab/P24 Ag 4thGn HHV-6 (PCR) Ref Lab Test Result 12/17/21 12/17/21 12/22/21 08:32 08:32 14:57 WBC 6.8 RBC 4.29 L Hgb 12.6 L Hct 37.5 L MCV 87.4 MCH 29.4 MCHC 33.6 RDW 14.0 Plt Count 274 MPV 8.7 L Immature Gran % (Auto) 0.4 Neut % (Auto) 74.9 H Lymph % (Auto) 14.5 L [place] % (Auto) 8.5 Eos % (Auto) 1.3 Baso % (Auto) 0.4 Lymph # (Auto) 1.0 L [place] # (Auto) 0.6 Eos # (Auto) 0.1 Baso # (Auto) 0.0 Abs Immat Gran (auto) 0.03 Absolute Neuts (auto) 5.1 Absolute Nucleated RBC 0.000 Nucleated RBC % (auto) 0.0 ESR PT INR APTT D-Dimer High Sensitivty Sodium Potassium Chloride Carbon Dioxide Anion Gap BUN Creatinine Estim Creat Clear Calc Estimated GFR Random Glucose Fasting Glucose Estimat Average Glucose Hemoglobin A1c % Uric Acid Calcium Magnesium Total Bilirubin AST ALT Alkaline Phosphatase Ammonia Total Creatine Kinase C-Reactive Protein Total Protein Albumin Ceruloplasmin Triglycerides Cholesterol LDL Cholesterol, Calc HDL Cholesterol Vitamin B12 Folate TSH Free T4 Total Testosterone 474 Fr Testosterone Dialys 38.4 Random Cortisol Urine Color Urine Appearance Urine pH Ur Specific [place] Urine Protein Urine Glucose (UA) Urine Ketones Urine Blood Urine Nitrite Ur Leukocyte Esterase CSF Tube Number CSF Volume CSF Appearance CSF Color CSF WBC CSF RBC CSF Lymphocytes CSF Appearance (b) CSF Glucose CSF Total Protein CSF Lyme IgG (Immblot) CSF Lyme IgG Bands Det CSF Lyme IgM (Immblot) CSF Lyme IgM Bands Det CSF C.neoform/gat PCR CSF CMV DNA (PCR) CSF Enterovirus (PCR) CSF E. coli K1 (PCR) CSF H. influenzae (PCR) CSF HSV I (PCR) CSF HSV II (PCR) CSF L.monocytogenes PCR CSF N. meningitidis PCR CSF Parechovirus (PCR) CSF S. agalactiae (PCR) CSF S. pneumoniae (PCR) CSF VZV (PCR) Ur Arsenic 24 Hour Urine Cadmium 24 Hour Serum Copper Ur Total Volume Ur Copper 24 Hr Urine Lead 24 Hour Urine Mercury 24 Hour Zinc Rheumatoid Factor TRENT Screen TRENT Titer TRETN Titer 2 TRENT Titer 3 TRENT Pattern TRENT Pattern 2 TRENT Pattern 3 Anti-ds DNA Titer (Crith) Anti-ds DNA (Crithidia) T.pallidum Ab (EIA) Lyme Screen IgG & IgM Lyme Progressive Test COVID-19 ([facility]LLI) COVID-19 Clin Com HIV 1&2 Ab/P24 Ag 4thGn Nonreactive HHV-6 (PCR) Ref Lab Test Result 12/22/21 12/22/21 12/25/21 14:57 18:18 08:08 WBC RBC Hgb Hct MCV MCH MCHC RDW Plt Count MPV Immature Gran % (Auto) Neut % (Auto) Lymph % (Auto) [place] % (Auto) Eos % (Auto) Baso % (Auto) Lymph # (Auto) [place] # (Auto) Eos # (Auto) Baso # (Auto) Abs Immat Gran (auto) Absolute Neuts (auto) Absolute Nucleated RBC Nucleated RBC % (auto) ESR PT INR APTT D-Dimer High Sensitivty Sodium 135 Potassium 4.0 Chloride 98 Carbon Dioxide 30 H Anion Gap 11 L BUN 14 Creatinine 0.98 Estim Creat Clear Calc 100.6 Estimated GFR > 60 Random Glucose 114 Fasting Glucose Estimat Average Glucose Hemoglobin A1c % Uric Acid 4.2 Calcium 9.4 Magnesium Total Bilirubin 0.4 AST 13 ALT 24 Alkaline Phosphatase 91 D Ammonia Total Creatine Kinase C-Reactive Protein Total Protein 6.1 L Albumin 4.1 Ceruloplasmin Triglycerides Cholesterol LDL Cholesterol, Calc HDL Cholesterol Vitamin B12 Folate TSH Free T4 Total Testosterone Fr Testosterone Dialys Random Cortisol Urine Color YELLOW Urine Appearance CLEAR Urine pH 7.0 Ur Specific [place] 1.015 Urine Protein NEG Urine Glucose (UA) NEG Urine Ketones NEG Urine Blood NEG Urine Nitrite NEG Ur Leukocyte Esterase NEG CSF Tube Number CSF Volume CSF Appearance CSF Color CSF WBC CSF RBC CSF Lymphocytes CSF Appearance (b) CSF Glucose CSF Total Protein CSF Lyme IgG (Immblot) CSF Lyme IgG Bands Det CSF Lyme IgM (Immblot) CSF Lyme IgM Bands Det CSF C.neoform/gat PCR CSF CMV DNA (PCR) CSF Enterovirus (PCR) CSF E. coli K1 (PCR) CSF H. influenzae (PCR) CSF HSV I (PCR) CSF HSV II (PCR) CSF L.monocytogenes PCR CSF N. meningitidis PCR CSF Parechovirus (PCR) CSF S. agalactiae (PCR) CSF S. pneumoniae (PCR) CSF VZV (PCR) Ur Arsenic 24 Hour Urine Cadmium 24 Hour Serum Copper Ur Total Volume Ur Copper 24 Hr Urine Lead 24 Hour Urine Mercury 24 Hour Zinc Rheumatoid Factor TRENT Screen TRENT Titer TRENT Titer 2 TRENT Titer 3 TRENT Pattern TRENT Pattern 2 TRENT Pattern 3 Anti-ds DNA Titer (Crith) Anti-ds DNA (Crithidia) T.pallidum Ab (EIA) Lyme Screen IgG & IgM Lyme Progressive Test COVID-19 ([facility]I) COVID-19 Clin Com HIV 1&2 Ab/P24 Ag 4thGn HHV-6 (PCR) Ref Lab Test Result 12/27/21 12/27/21 12/27/21 08:00 08:00 08:11 WBC RBC Hgb Hct MCV MCH MCHC RDW Plt Count MPV Immature Gran % (Auto) Neut % (Auto) Lymph % (Auto) [place] % (Auto) Eos % (Auto) Baso % (Auto) Lymph # (Auto) [place] # (Auto) Eos # (Auto) Baso # (Auto) Abs Immat Gran (auto) Absolute Neuts (auto) Absolute Nucleated RBC Nucleated RBC % (auto) ESR PT 12.1 INR 1.1 APTT 38.5 H D-Dimer High Sensitivty Sodium Potassium Chloride Carbon Dioxide Anion Gap BUN Creatinine Estim Creat Clear Calc Estimated GFR Random Glucose Fasting Glucose Estimat Average Glucose Hemoglobin A1c % Uric Acid Calcium Magnesium Total Bilirubin AST ALT Alkaline Phosphatase Ammonia Total Creatine Kinase C-Reactive Protein Total Protein Albumin Ceruloplasmin Triglycerides Cholesterol LDL Cholesterol, Calc HDL Cholesterol Vitamin B12 Folate TSH Free T4 Total Testosterone Fr Testosterone Dialys Random Cortisol Urine Color Urine Appearance Urine pH Ur Specific [place] Urine Protein Urine Glucose (UA) Urine Ketones Urine Blood Urine Nitrite Ur Leukocyte Esterase CSF Tube Number CSF Volume CSF Appearance CSF Color CSF WBC CSF RBC CSF Lymphocytes CSF Appearance (b) CSF Glucose CSF Total Protein CSF Lyme IgG (Immblot) CSF Lyme IgG Bands Det CSF Lyme IgM (Immblot) CSF Lyme IgM Bands Det CSF C.neoform/gat PCR CSF CMV DNA (PCR) CSF Enterovirus (PCR) CSF E. coli K1 (PCR) CSF H. influenzae (PCR) CSF HSV I (PCR) CSF HSV II (PCR) CSF L.monocytogenes PCR CSF N. meningitidis PCR CSF Parechovirus (PCR) CSF S. agalactiae (PCR) CSF S. pneumoniae (PCR) CSF VZV (PCR) Ur Arsenic 24 Hour <10 Urine Cadmium 24 Hour <0.5 Serum Copper Ur Total Volume 1300 Ur Copper 24 Hr 9 L Urine Lead 24 Hour <10 Urine Mercury 24 Hour <4 Zinc Rheumatoid Factor TRENT Screen TRENT Titer TRENT Titer 2 TRENT Titer 3 TRENT Pattern TRENT Pattern 2 TRENT Pattern 3 Anti-ds DNA Titer (Crith) Anti-ds DNA (Crithidia) T.pallidum Ab (EIA) Lyme Screen IgG & IgM Lyme Progressive Test COVID-19 ([facility]I) COVID-19 Clin Com HIV 1&2 Ab/P24 Ag 4thGn HHV-6 (PCR) Ref Lab Test Result 12/27/21 12/27/21 12/27/21 08:11 08:11 08:11 WBC RBC Hgb Hct MCV MCH MCHC RDW Plt Count 244 MPV Immature Gran % (Auto) Neut % (Auto) Lymph % (Auto) [place] % (Auto) Eos % (Auto) Baso % (Auto) Lymph # (Auto) [place] # (Auto) Eos # (Auto) Baso # (Auto) Abs Immat Gran (auto) Absolute Neuts (auto) Absolute Nucleated RBC Nucleated RBC % (auto) ESR 13 PT INR APTT D-Dimer High Sensitivty Sodium Potassium Chloride Carbon Dioxide Anion Gap BUN Creatinine Estim Creat Clear Calc Estimated GFR Random Glucose Fasting Glucose Estimat Average Glucose Hemoglobin A1c % Uric Acid Calcium Magnesium Total Bilirubin AST ALT Alkaline Phosphatase Ammonia Total Creatine Kinase 38 C-Reactive Protein Total Protein Albumin Ceruloplasmin Triglycerides Cholesterol LDL Cholesterol, Calc HDL Cholesterol Vitamin B12 Folate TSH Free T4 Total Testosterone Fr Testosterone Dialys Random Cortisol Urine Color Urine Appearance Urine pH Ur Specific [place] Urine Protein Urine Glucose (UA) Urine Ketones Urine Blood Urine Nitrite Ur Leukocyte Esterase CSF Tube Number CSF Volume CSF Appearance CSF Color CSF WBC CSF RBC CSF Lymphocytes CSF Appearance (b) CSF Glucose CSF Total Protein CSF Lyme IgG (Immblot) CSF Lyme IgG Bands Det CSF Lyme IgM (Immblot) CSF Lyme IgM Bands Det CSF C.neoform/gat PCR CSF CMV DNA (PCR) CSF Enterovirus (PCR) CSF E. coli K1 (PCR) CSF H. influenzae (PCR) CSF HSV I (PCR) CSF HSV II (PCR) CSF L.monocytogenes PCR CSF N. meningitidis PCR CSF Parechovirus (PCR) CSF S. agalactiae (PCR) CSF S. pneumoniae (PCR) CSF VZV (PCR) Ur Arsenic 24 Hour Urine Cadmium 24 Hour Serum Copper Ur Total Volume Ur Copper 24 Hr Urine Lead 24 Hour Urine Mercury 24 Hour Zinc Rheumatoid Factor < 15.0 TRENT Screen TRENT Titer TRENT Titer 2 TRENT Titer 3 TRENT Pattern TRENT Pattern 2 TRENT Pattern 3 Anti-ds DNA Titer (Crith) Anti-ds DNA (Crithidia) T.pallidum Ab (EIA) Lyme Screen IgG & IgM Lyme Progressive Test COVID-19 ([facility]I) COVID-19 Clin Com HIV 1&2 Ab/P24 Ag 4thGn HHV-6 (PCR) Ref Lab Test Result 12/27/21 12/27/21 12/27/21 08:11 08:11 08:11 WBC RBC Hgb Hct MCV MCH MCHC RDW Plt Count MPV Immature Gran % (Auto) Neut % (Auto) Lymph % (Auto) [place] % (Auto) Eos % (Auto) Baso % (Auto) Lymph # (Auto) [place] # (Auto) Eos # (Auto) Baso # (Auto) Abs Immat Gran (auto) Absolute Neuts (auto) Absolute Nucleated RBC Nucleated RBC % (auto) ESR PT INR APTT D-Dimer High Sensitivty Sodium Potassium Chloride Carbon Dioxide Anion Gap BUN Creatinine Estim Creat Clear Calc Estimated GFR Random Glucose Fasting Glucose Estimat Average Glucose Hemoglobin A1c % Uric Acid Calcium Magnesium Total Bilirubin AST ALT Alkaline Phosphatase Ammonia Total Creatine Kinase C-Reactive Protein Total Protein Albumin Ceruloplasmin 34 Triglycerides Cholesterol LDL Cholesterol, Calc HDL Cholesterol Vitamin B12 Folate TSH Free T4 Total Testosterone Fr Testosterone Dialys Random Cortisol Urine Color Urine Appearance Urine pH Ur Specific [place] Urine Protein Urine Glucose (UA) Urine Ketones Urine Blood Urine Nitrite Ur Leukocyte Esterase CSF Tube Number CSF Volume CSF Appearance CSF Color CSF WBC CSF RBC CSF Lymphocytes CSF Appearance (b) CSF Glucose CSF Total Protein CSF Lyme IgG (Immblot) CSF Lyme IgG Bands Det CSF Lyme IgM (Immblot) CSF Lyme IgM Bands Det CSF C.neoform/gat PCR CSF CMV DNA (PCR) CSF Enterovirus (PCR) CSF E. coli K1 (PCR) CSF H. influenzae (PCR) CSF HSV I (PCR) CSF HSV II (PCR) CSF L.monocytogenes PCR CSF N. meningitidis PCR CSF Parechovirus (PCR) CSF S. agalactiae (PCR) CSF S. pneumoniae (PCR) CSF VZV (PCR) Ur Arsenic 24 Hour Urine Cadmium 24 Hour Serum Copper Ur Total Volume Ur Copper 24 Hr Urine Lead 24 Hour Urine Mercury 24 Hour Zinc Rheumatoid Factor TRENT Screen TRENT Titer TRENT Titer 2 TRENT Titer 3 TRENT Pattern TRENT Pattern 2 TRENT Pattern 3 Anti-ds DNA Titer (Crith) TNP Anti-ds DNA (Crithidia) Negative T.pallidum Ab (EIA) Lyme Screen IgG & IgM <0.90 Lyme Progressive Test TNP COVID-19 ([facility]) COVID-19 Clin Com HIV 1&2 Ab/P24 Ag 4thGn HHV-6 (PCR) Ref Lab Test Result 12/27/21 12/27/21 12/27/21 08:11 13:50 13:50 WBC RBC Hgb Hct MCV MCH MCHC RDW Plt Count MPV Immature Gran % (Auto) Neut % (Auto) Lymph % (Auto) [place] % (Auto) Eos % (Auto) Baso % (Auto) Lymph # (Auto) [place] # (Auto) Eos # (Auto) Baso # (Auto) Abs Immat Gran (auto) Absolute Neuts (auto) Absolute Nucleated RBC Nucleated RBC % (auto) ESR PT INR APTT D-Dimer High Sensitivty Sodium Potassium Chloride Carbon Dioxide Anion Gap BUN Creatinine Estim Creat Clear Calc Estimated GFR Random Glucose Fasting Glucose Estimat Average Glucose Hemoglobin A1c % Uric Acid Calcium Magnesium Total Bilirubin AST ALT Alkaline Phosphatase Ammonia Total Creatine Kinase C-Reactive Protein Total Protein Albumin Ceruloplasmin Triglycerides Cholesterol LDL Cholesterol, Calc HDL Cholesterol Vitamin B12 Folate TSH Free T4 Total Testosterone Fr Testosterone Dialys Random Cortisol Urine Color Urine Appearance Urine pH Ur Specific [place] Urine Protein Urine Glucose (UA) Urine Ketones Urine Blood Urine Nitrite Ur Leukocyte Esterase CSF Tube Number CSF Volume CSF Appearance CSF Color CSF WBC CSF RBC CSF Lymphocytes CSF Appearance (b) CSF Glucose CSF Total Protein CSF Lyme IgG (Immblot) CSF Lyme IgG Bands Det CSF Lyme IgM (Immblot) CSF Lyme IgM Bands Det CSF C.neoform/gat PCR Not Detected CSF CMV DNA (PCR) Not Detected CSF Enterovirus (PCR) Not Detected CSF E. coli K1 (PCR) Not Detected CSF H. influenzae (PCR) Not Detected CSF HSV I (PCR) Not Detected CSF HSV II (PCR) Not Detected CSF L.monocytogenes PCR Not Detected CSF N. meningitidis PCR Not Detected CSF Parechovirus (PCR) Not Detected CSF S. agalactiae (PCR) Not Detected CSF S. pneumoniae (PCR) Not Detected CSF VZV (PCR) Not Detected Ur Arsenic 24 Hour Urine Cadmium 24 Hour Serum Copper 154 Ur Total Volume Ur Copper 24 Hr Urine Lead 24 Hour Urine Mercury 24 Hour Zinc Rheumatoid Factor TRENT Screen TRENT Titer TRENT Titer 2 TRENT Titer 3 TRENT Pattern TRENT Pattern 2 TRENT Pattern 3 Anti-ds DNA Titer (Crith) Anti-ds DNA (Crithidia) T.pallidum Ab (EIA) Lyme Screen IgG & IgM Lyme Progressive Test COVID-19 ([facility]) COVID-19 Clin Com HIV 1&2 Ab/P24 Ag 4thGn HHV-6 (PCR) Not Detected Ref Lab Test Result See Note 12/27/21 12/27/21 12/27/21 13:50 13:50 13:50 WBC RBC Hgb Hct MCV MCH MCHC RDW Plt Count MPV Immature Gran % (Auto) Neut % (Auto) Lymph % (Auto) [place] % (Auto) Eos % (Auto) Baso % (Auto) Lymph # (Auto) [place] # (Auto) Eos # (Auto) Baso # (Auto) Abs Immat Gran (auto) Absolute Neuts (auto) Absolute Nucleated RBC Nucleated RBC % (auto) ESR PT INR APTT D-Dimer High Sensitivty Sodium Potassium Chloride Carbon Dioxide Anion Gap BUN Creatinine Estim Creat Clear Calc Estimated GFR Random Glucose Fasting Glucose Estimat Average Glucose Hemoglobin A1c % Uric Acid Calcium Magnesium Total Bilirubin AST ALT Alkaline Phosphatase Ammonia Total Creatine Kinase C-Reactive Protein Total Protein Albumin Ceruloplasmin Triglycerides Cholesterol LDL Cholesterol, Calc HDL Cholesterol Vitamin B12 Folate TSH Free T4 Total Testosterone Fr Testosterone Dialys Random Cortisol Urine Color Urine Appearance Urine pH Ur Specific [place] Urine Protein Urine Glucose (UA) Urine Ketones Urine Blood Urine Nitrite Ur Leukocyte Esterase CSF Tube Number 1 4 CSF Volume 4.0 CSF Appearance CLEAR CSF Color COLORLESS CSF WBC 1 CSF RBC 0 CSF Lymphocytes 100 CSF Appearance (b) Clear, Colorless CSF Glucose 57 CSF Total Protein 39.8 CSF Lyme IgG (Immblot) NO BANDS DETECTED CSF Lyme IgG Bands Det TNP CSF Lyme IgM (Immblot) NO BANDS DETECTED CSF Lyme IgM Bands Det TNP CSF C.neoform/gat PCR CSF CMV DNA (PCR) CSF Enterovirus (PCR) CSF E. coli K1 (PCR) CSF H. influenzae (PCR) CSF HSV I (PCR) CSF HSV II (PCR) CSF L.monocytogenes PCR CSF N. meningitidis PCR CSF Parechovirus (PCR) CSF S. agalactiae (PCR) CSF S. pneumoniae (PCR) CSF VZV (PCR) Ur Arsenic 24 Hour Urine Cadmium 24 Hour Serum Copper Ur Total Volume Ur Copper 24 Hr Urine Lead 24 Hour Urine Mercury 24 Hour Zinc Rheumatoid Factor TRENT Screen TRENT Titer TRENT Titer 2 TRENT Titer 3 TRENT Pattern TRENT Pattern 2 TRENT Pattern 3 Anti-ds DNA Titer (Crith) Anti-ds DNA (Crithidia) T.pallidum Ab (EIA) Lyme Screen IgG & IgM Lyme Progressive Test COVID-19 ([facility]) COVID-19 Clin Com HIV 1&2 Ab/P24 Ag 4thGn HHV-6 (PCR) Ref Lab Test Result 12/29/21 12/29/21 01/04/22 07:18 07:18 08:12 WBC RBC Hgb Hct MCV MCH MCHC RDW Plt Count MPV Immature Gran % (Auto) Neut % (Auto) Lymph % (Auto) [place] % (Auto) Eos % (Auto) Baso % (Auto) Lymph # (Auto) [place] # (Auto) Eos # (Auto) Baso # (Auto) Abs Immat Gran (auto) Absolute Neuts (auto) Absolute Nucleated RBC Nucleated RBC % (auto) ESR PT INR APTT D-Dimer High Sensitivty Sodium Potassium Chloride Carbon Dioxide Anion Gap BUN Creatinine Estim Creat Clear Calc Estimated GFR Random Glucose Fasting Glucose Estimat Average Glucose Hemoglobin A1c % Uric Acid Calcium Magnesium Total Bilirubin AST ALT Alkaline Phosphatase Ammonia 26 Total Creatine Kinase C-Reactive Protein Total Protein Albumin 3.7 Ceruloplasmin Triglycerides Cholesterol LDL Cholesterol, Calc HDL Cholesterol Vitamin B12 Folate TSH Free T4 Total Testosterone Fr Testosterone Dialys Random Cortisol 18.3 Urine Color Urine Appearance Urine pH Ur Specific [place] Urine Protein Urine Glucose (UA) Urine Ketones Urine Blood Urine Nitrite Ur Leukocyte Esterase CSF Tube Number CSF Volume CSF Appearance CSF Color CSF WBC CSF RBC CSF Lymphocytes CSF Appearance (b) CSF Glucose CSF Total Protein CSF Lyme IgG (Immblot) CSF Lyme IgG Bands Det CSF Lyme IgM (Immblot) CSF Lyme IgM Bands Det CSF C.neoform/gat PCR CSF CMV DNA (PCR) CSF Enterovirus (PCR) CSF E. coli K1 (PCR) CSF H. influenzae (PCR) CSF HSV I (PCR) CSF HSV II (PCR) CSF L.monocytogenes PCR CSF N. meningitidis PCR CSF Parechovirus (PCR) CSF S. agalactiae (PCR) CSF S. pneumoniae (PCR) CSF VZV (PCR) Ur Arsenic 24 Hour Urine Cadmium 24 Hour Serum Copper Ur Total Volume Ur Copper 24 Hr Urine Lead 24 Hour Urine Mercury 24 Hour Zinc Rheumatoid Factor TRENT Screen TRENT Titer TRENT Titer 2 TRENT Titer 3 TRENT Pattern TRENT Pattern 2 TRENT Pattern 3 Anti-ds DNA Titer (Crith) Anti-ds DNA (Crithidia) T.pallidum Ab (EIA) Lyme Screen IgG & IgM Lyme Progressive Test COVID-19 ([facility]) COVID-19 Clin Com HIV 1&2 Ab/P24 Ag 4thGn HHV-6 (PCR) Ref Lab Test Result 01/04/22 01/28/22 01/28/22 08:12 11:08 11:08 WBC 4.0 L RBC 4.84 Hgb 13.6 L Hct 41.8 L MCV 86.4 MCH 28.1 MCHC 32.5 RDW 14.0 Plt Count 170 D MPV 9.6 Immature Gran % (Auto) 0.5 H Neut % (Auto) 67.6 Lymph % (Auto) 22.6 [place] % (Auto) 7.0 Eos % (Auto) 1.8 Baso % (Auto) 0.5 Lymph # (Auto) 0.9 L [place] # (Auto) 0.3 Eos # (Auto) 0.1 Baso # (Auto) 0.0 Abs Immat Gran (auto) 0.02 Absolute Neuts (auto) 2.7 Absolute Nucleated RBC 0.000 Nucleated RBC % (auto) 0.0 ESR PT INR APTT D-Dimer High Sensitivty Sodium 143 Potassium 4.2 Chloride 107 Carbon Dioxide 29 Anion Gap 11 L BUN 18 H Creatinine 1.12 Estim Creat Clear Calc 79.8 Estimated GFR > 60 Random Glucose 99 Fasting Glucose Estimat Average Glucose Hemoglobin A1c % Uric Acid Calcium 9.3 Magnesium Total Bilirubin 0.3 AST 8 ALT 7 Alkaline Phosphatase 69 D Ammonia Total Creatine Kinase C-Reactive Protein Total Protein 5.9 L Albumin 3.8 Ceruloplasmin Triglycerides Cholesterol LDL Cholesterol, Calc HDL Cholesterol Vitamin B12 Folate TSH Free T4 Total Testosterone Fr Testosterone Dialys Random Cortisol Urine Color Urine Appearance Urine pH Ur Specific [place] Urine Protein Urine Glucose (UA) Urine Ketones Urine Blood Urine Nitrite Ur Leukocyte Esterase CSF Tube Number CSF Volume CSF Appearance CSF Color CSF WBC CSF RBC CSF Lymphocytes CSF Appearance (b) CSF Glucose CSF Total Protein CSF Lyme IgG (Immblot) CSF Lyme IgG Bands Det CSF Lyme IgM (Immblot) CSF Lyme IgM Bands Det CSF C.neoform/gat PCR CSF CMV DNA (PCR) CSF Enterovirus (PCR) CSF E. coli K1 (PCR) CSF H. influenzae (PCR) CSF HSV I (PCR) CSF HSV II (PCR) CSF L.monocytogenes PCR CSF N. meningitidis PCR CSF Parechovirus (PCR) CSF S. agalactiae (PCR) CSF S. pneumoniae (PCR) CSF VZV (PCR) Ur Arsenic 24 Hour Urine Cadmium 24 Hour Serum Copper Ur Total Volume Ur Copper 24 Hr Urine Lead 24 Hour Urine Mercury 24 Hour Zinc 64 Rheumatoid Factor TRENT Screen TRENT Titer TRENT Titer 2 TRENT Titer 3 TRENT Pattern TRENT Pattern 2 TRENT Pattern 3 Anti-ds DNA Titer (Crith) Anti-ds DNA (Crithidia) T.pallidum Ab (EIA) Lyme Screen IgG & IgM Lyme Progressive Test COVID-19 ([facility]) COVID-19 Clin Com HIV 1&2 Ab/P24 Ag 4thGn HHV-6 (PCR) Ref Lab Test Result 01/29/22 01/29/22 01/29/22 08:08 08:08 09:08 WBC RBC Hgb Hct MCV MCH MCHC RDW Plt Count MPV Immature Gran % (Auto) Neut % (Auto) Lymph % (Auto) [place] % (Auto) Eos % (Auto) Baso % (Auto) Lymph # (Auto) [place] # (Auto) Eos # (Auto) Baso # (Auto) Abs Immat Gran (auto) Absolute Neuts (auto) Absolute Nucleated RBC Nucleated RBC % (auto) ESR PT INR APTT D-Dimer High Sensitivty Sodium Potassium Chloride Carbon Dioxide Anion Gap BUN Creatinine Estim Creat Clear Calc Estimated GFR Random Glucose Fasting Glucose Estimat Average Glucose 97 Hemoglobin A1c % 5.0 Uric Acid Calcium Magnesium Total Bilirubin AST ALT Alkaline Phosphatase Ammonia Total Creatine Kinase C-Reactive Protein Total Protein Albumin Ceruloplasmin Triglycerides 116 Cholesterol 222 D LDL Cholesterol, Calc 170 HDL Cholesterol 29 Vitamin B12 Folate TSH Free T4 Total Testosterone Fr Testosterone Dialys Random Cortisol Urine Color Urine Appearance Urine pH Ur Specific [place] Urine Protein Urine Glucose (UA) Urine Ketones Urine Blood Urine Nitrite Ur Leukocyte Esterase CSF Tube Number CSF Volume CSF Appearance CSF Color CSF WBC CSF RBC CSF Lymphocytes CSF Appearance (b) CSF Glucose CSF Total Protein CSF Lyme IgG (Immblot) CSF Lyme IgG Bands Det CSF Lyme IgM (Immblot) CSF Lyme IgM Bands Det CSF C.neoform/gat PCR CSF CMV DNA (PCR) CSF Enterovirus (PCR) CSF E. coli K1 (PCR) CSF H. influenzae (PCR) CSF HSV I (PCR) CSF HSV II (PCR) CSF L.monocytogenes PCR CSF N. meningitidis PCR CSF Parechovirus (PCR) CSF S. agalactiae (PCR) CSF S. pneumoniae (PCR) CSF VZV (PCR) Ur Arsenic 24 Hour Urine Cadmium 24 Hour Serum Copper Ur Total Volume Ur Copper 24 Hr Urine Lead 24 Hour Urine Mercury 24 Hour Zinc Rheumatoid Factor TRENT Screen TRENT Titer TRENT Titer 2 TRENT Titer 3 TRENT Pattern TRENT Pattern 2 TRENT Pattern 3 Anti-ds DNA Titer (Crith) Anti-ds DNA (Crithidia) T.pallidum Ab (EIA) Lyme Screen IgG & IgM Lyme Progressive Test COVID-19 ([facility]) Negative COVID-19 Clin Com See Note HIV 1&2 Ab/P24 Ag 4thGn HHV-6 (PCR) Ref Lab Test Result Airway Mallampati Class: II TM Dist: >3cm Neck ROM: Full Heart: rrr Lungs: cta Assessment and Plan Assessment Anesthesia Assessment: Anesthesia Plan Discussed and Chart Reviewed Final Anesthetic Review Family History of Problems with Anesthesia: No History of Problems with Anesthesia: No NPO: Yes ASA Class: III Final Preanesthetic Review: No Changes in Pt Med Stat, Meds/Allgs Chart Reviewed and Consent Obtained/Reviewed Patient Risk: Intermediate Procedure Risk: Intermediate Anesthetic Plan Anesthetic Plan: GA Disposition: Standard PACU
--- NOTE | 2022-02-04 10:02 | HO.POSTANES ---
Post Anesthesia Evaluation Post Anesthesia Evaluation Vital Signs: Vital Signs Temp Pulse Resp BP Pulse Ox 02/04/22 09:55 98.0 F 76 18 140/88 H 100 02/04/22 09:40 81 17 130/88 96 02/04/22 09:25 70 18 140/88 H 100 02/04/22 09:10 84 21 H 98 02/04/22 09:05 79 19 136/89 96 02/04/22 09:00 75 19 111/68 98 02/04/22 08:55 98.3 F 69 16 121/68 98 02/04/22 06:43 97.3 F 59 18 130/78 99 02/04/22 06:18 97.6 F 54 148/87 H Anesthesia: General Mental Status: Awake Pain Control: Satisfactory Nausea/Vomiting: None Hydration: Adequate Anesthesia-Related Issues: No Anes. Related Issues
[2022-02-04 10:18] LABS: Alanine Aminotransferase 9 U/L (0-40); Albumin Level 3.6 g/dL (3.5-5.0); Alkaline Phosphatase 61 U/L (39-117); Anion Gap 10 (12-20); Aspartate Amino Transferase 7 U/L (5-37); Bilirubin Total 0.6 mg/dL (0.0-1.0); Blood Urea Nitrogen 14 mg/dL (9-16); Carbon Dioxide 30 mmol/L (22-29); Chloride 104 mmol/L (96-108); Estimated Glomerular Filt Rate > 60; Glucose Random 101 mg/dL (60-115); Magnesium 2.1 mg/dL (1.6-2.6); Sodium 140 mmol/L (135-145); Total Protein 5.3 g/dL (6.5-8.0)
[2022-02-04] MEDS: polyethylene glycoL 3350 17 GM POWD.PACK PO (10:23)
[2022-02-04] MEDS: risperiDONE 1 MG TABLET PO ×2 (10:23→20:19)
[2022-02-04] MEDS: amantadine HCL 100 MG CAPSULE PO ×2 (10:23→20:19)
[2022-02-04] MEDS: Sucralfate 1 GM TABLET PO ×3 (10:23→20:19)
--- NOTE | 2022-02-04 11:05 | P.PNPSI_ITS ---
Subjective Subjective Date of Service: 02/04/22 Reason For Visit: unspecified bipolar and related d/o Subjective Notes: Conditional Voluntary (HCP Activation) Healthcare Proxy: Yes Guardianship: No Medical Problems Affecting Mental Status: No Interim History: ECT #3. Gerry has exhibited a positive response to ECT thus far. 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 He is talking about his family, his children, about going home and resuming his life. He talks of being frightened that the treatment effects will wear off. He speaks of this being the first time in along while that he has felt more like himself, without that feeling in his stomach that he was immobile and unable to move. He states the treatment is not frightening for him and he does not fear having the treatments. Medication Compliance: Yes Side effects from medications: No Attending Groups: Yes Review of Systems Acute medical concerns: No Note: On 02/01 Cymbalta was stopped due to concerns pt was becoming hypomanic. This was done in consultation with Dr. Inman after ECT treatment #2. Medical Review of Systems: unchanged Review of Systems Review of Systems Yes all other systems are reviewed and are negative Reports behavioral changes Psychiatric: Reports anxiety (that treatment effects will not last), Reports behavioral changes and Reports hopelessness ( I have hope for the first time in a long while. ) Mental Status Exam Mental Status Exam Patient Appearance: Appropriate Patient Orientation: Person, Place, Time and Situation Level of Consciousness: Alert Patient Behavior: Appropriate, Talkative, Cooperative and Good Eye Contact Mood Description: Cheerful and Apprehensive Affect Description: Apprehensive Patient Cognition Impaired: No Ability to Follow Directions: Good Speech Pattern: Spontaneous Speech Memory Description: Episodic Impaired Hallucinations: None Delusions: Not Present Thought Process: Intact Thought Content: positive for Intact Depressive Symptoms: Increased Anxiety Judgement: Fair Diagnostics Vital Signs (24Hr): Vital Signs - 24 hr 02/03/22 17:57 02/04/22 06:18 02/04/22 06:43 Temperature 98.1 F 97.6 F 97.3 F Pulse Rate 75 54 59 Respiratory Rate 18 Blood Pressure 115/70 148/87 H 130/78 Pulse Oximetry 99 02/04/22 08:55 02/04/22 09:00 02/04/22 09:05 Temperature 98.3 F Pulse Rate 69 75 79 Respiratory Rate 16 19 19 Blood Pressure 121/68 111/68 136/89 Pulse Oximetry 98 98 96 02/04/22 09:10 02/04/22 09:25 02/04/22 09:40 Temperature Pulse Rate 84 70 81 Respiratory Rate 21 H 18 17 Blood Pressure 140/88 H 130/88 Pulse Oximetry 98 100 96 02/04/22 09:55 02/04/22 10:20 Temperature 98.0 F 97.1 F Pulse Rate 76 76 Respiratory Rate 18 Blood Pressure 140/88 H 118/79 Pulse Oximetry 100 98 BMI result Body Mass Index 26.4 Labs Results: 01/28/22 11:08 02/04/22 09:55 Labs: Laboratory Results - last 48 hr 02/04/22 09:55 Sodium 140 Potassium 4.0 Chloride 104 Carbon Dioxide 30 H Anion Gap 10 L BUN 14 Creatinine 1.04 Estim Creat Clear Calc 86.0 Estimated GFR > 60 Random Glucose 101 Calcium 9.0 Magnesium 2.1 Total Bilirubin 0.6 AST 7 ALT 9 Alkaline Phosphatase 61 Total Protein 5.3 L Albumin 3.6 Imaging Radiology Impressions: ITS Impressions Foot X-Ray 11/08/21 17:32 IMPRESSION: Tiny Achilles heel spur. Otherwise unremarkable appearance of the left foot. Cervical Spine X-Ray 11/22/21 14:50 IMPRESSION: No fracture or malalignment. Mild degenerative changes. Forearm X-Ray 11/22/21 14:50 IMPRESSION: No acute fractures or malalignment within the imaged left upper extremity. Hip X-Ray 11/22/21 14:50 IMPRESSION: No acute fractures or malalignment. Humerus X-Ray 11/22/21 14:50 IMPRESSION: No acute fractures or malalignment within the imaged left upper extremity. Shoulder X-Ray 11/22/21 14:50 IMPRESSION: No acute fractures or malalignment within the imaged left upper extremity. Head CT 12/22/21 16:42 IMPRESSION: No acute intracranial pathology. Hand X-Ray 12/25/21 08:38 IMPRESSION: No soft tissue foreign body seen. Brain MRI 12/25/21 09:20 IMPRESSION: No acute intracranial findings. No acute infarcts. There is mild chronic microangiopathy. No pathologic enhancement. Lumbar Puncture Fluoroscopy 12/27/21 14:00 IMPRESSION: Successful ultrasound-guided lumbar puncture performed without immediate complications. Barium Swallow X-Ray 01/10/22 08:29 IMPRESSION: Unremarkable barium swallow in upright and supine position. Occasional secondary and tertiary peristalsis seen in mid and distal esophagus with solid foot but no obstruction.. Medications Medications Current Medications Acetaminophen (Acetaminophen 325 Mg Tablet) 650 mg PO Q6H PRN PRN Reason: Headache/Pain Mild Scale (1-3) Last Admin: 01/30/22 10:33 Dose: 650 mg Documented by: Al Hydroxide/Mg Hydroxide (Magnesium Hydrox/Alum Hydrox 30 Ml Oral.Susp) 30 ml PO Q6H PRN PRN Reason: Heartburn/Nausea Amantadine HCl (Amantadine Hcl 100 Mg Capsule) 100 mg PO BID [facility] Last Admin: 02/04/22 10:23 Dose: 100 mg Documented by: Ferrous Sulfate (Ferrous Sulfate 324 Mg Tablet.) 324 mg PO BEDTIME [facility] Last Admin: 02/03/22 20:31 Dose: 324 mg Documented by: Hydroxyzine HCl (Hydroxyzine Hcl 25 Mg Tablet) 25 mg PO Q6H PRN PRN Reason: Anxiety Last Admin: 12/16/21 22:28 Dose: 25 mg Documented by: Ibuprofen (Ibuprofen 800 Mg Tablet) 800 mg PO Q8H PRN PRN Reason: Pain, Mild (Pain Scale 1-3) Loperamide HCl (Loperamide Hcl 2 Mg Capsule) 2 mg PO Q6H PRN PRN Reason: Diarrhea Last Admin: 11/17/21 13:40 Dose: 2 mg Documented by: Magnesium Hydroxide (Milk Of Magnesia 30 Ml Oral.Susp) 30 ml PO DAILY PRN PRN Reason: Constipation Omeprazole (Omeprazole 40 Mg Capsule.) 40 mg PO DAILY@0630 [facility] Last Admin: 02/04/22 06:10 Dose: 40 mg Documented by: Polyethylene Glycol (Polyethylene Glycol 3350 17 Gm Powd.Pack) 17 gm PO DAILY [facility] Last Admin: 02/04/22 10:23 Dose: 17 gm Documented by: Psyllium Hydrophilic Mucilloid (Psyllium Seed 3.4 Gm Powd.Pack) 3.4 gm PO BEDTIME [facility] Last Admin: 02/03/22 15:38 Dose: Not Given Documented by: Risperidone (Risperidone 1 Mg Tablet) 1 mg PO BID [facility] Last Admin: 02/04/22 10:23 Dose: 1 mg Documented by: Sucralfate (Sucralfate 1 Gm Tablet) 1 gm PO TID ANISHA Last Admin: 02/04/22 10:23 Dose: 1 gm Documented by: Trazodone HCl (Trazodone Hcl 50 Mg Tablet) 50 mg PO BEDTIME PRN PRN Reason: Insomnia Allergies Allergies Allergy/AdvReac Type Severity Reaction Status Date / Time No Known Allergies Allergy Unverified 11/07/21 21:23 Assessment & Plan Assessment & Plan (1) MDD (major depressive disorder), recurrent, severe, with psychosis: Status: Acute Code(s): F33.3 - Major depressive disorder, recurrent, severe with psychotic symptoms (2) Encephalopathy chronic: Status: Acute Code(s): G93.49 - Other encephalopathy Plan Remains depressed, anergic, unable to make a clear decision/choice. HCP activated, today, pt able to give SSN for court paperwork Continue Cymbalta, Risperdal, Sertraline Work with pt, , team to move forward with plan of care- prepare for ECT Pt completed barium swallow- results negative 01/11/22 Increase Risperdal to 2 mg bid 01/12/2022 Patient seen extensively reviewed diagnosis expectation for treatment with ECT risks benefits alternatives and lack of response to medication. Also reviewed patient's medical history that there is does not appear to be any other etiology to his condition. Again reviewed ECT procedure continues to have difficulty with decision making in taking information 01/14/22 Support, educate, prepare for HCP affirmation-ECT 01/16/22 Increase Cymbalta to 60 mg daily Discontinue Sertraline 01/17/22 Decrease Cymbalta to 30 mg daily-Gerry is planning on beginning to refuse meds, will taper back slowly should he choose tapering. 01/19/22: no change to the above 01/20/22: no change 01/21/22: Anticipating court validation of HCP with increase in fear, anxiety and resulting anger. States he plans to refuse medications-dose of Cymbalta decreased to prepare to manage SE, however, pt is compliant with regime at this time. 01/23/22: Continue current plan Offer support, answer questions, address concerns, attempt to manage pt's anxiety regarding treatment 01/24/22: Court hearing 01/25/22. Offer support to pt. Continue current medications-pt has not refused his regime he reports today. 01/25/22: Discussed with team-Initial planning with Gerry and his to address negative emotions surrounding treatment and outcome so we may help Gerry move toward his recovery in a positive frame of reference. 01/26 no changes to current tx regimen 01/27 no changes to current tx regimen 01/28/22: Medical clearance for tentative ECT on 01/30/22. 01/29/22: Prepare for ECT on 01/30/22. Today, pt continues to decline further education and support 01/30/22: Continue current plan of care 01/31/22: Continue current plan of care, appears improved. 02/01/22: ECT#2. Significant improvement, possible hypomania. Discussed with Dr. Inman. We will discontinue Cymbalta for a time to prevent promotion of [place] 02/02/2022: Continue current regimen and treatment and continuation of ECT. No changes were made today 02/03/2022: Continue current regimen and plans. Continue ECT. Safety checks were changed to every 15 minutes 02/04/22: Continue current plan. Monitor for hypomania. I spent minutes with the patient and/or on the patient floor today, greater than?50% of which was spent counseling/coordinating care. Patient educated on: therapeutic strategies Informed Consent: further education needed Reason for contiued inpatient stay Substantial Risk for: inability to function and rapid decompensation
[2022-02-04] MEDS: Ferrous Sulfate 324 MG TABLET.DR PO (20:19)
[2022-02-05 06:00] VITALS: BP 111/76; PULSE 70; RESP 16; TEMP 36.6; O2SAT 96
[2022-02-05] MEDS: Omeprazole 40 MG CAPSULE.DR PO (06:41)
[2022-02-05] MEDS: polyethylene glycoL 3350 17 GM POWD.PACK PO (09:04)
[2022-02-05] MEDS: Sucralfate 1 GM TABLET PO ×3 (09:04→22:08)
[2022-02-05] MEDS: risperiDONE 1 MG TABLET PO ×2 (09:04→22:08)
[2022-02-05] MEDS: amantadine HCL 100 MG CAPSULE PO ×2 (09:04→22:08)
[2022-02-05 18:00] VITALS: BP 148/82; PULSE 79; RESP 16; TEMP 36.4; O2SAT 97
--- NOTE | 2022-02-05 18:48 | P.PNPSI_ITS ---
Subjective Subjective Date of Service: 02/05/22 Reason For Visit: unspecified bipolar and related d/o Interim History: Continues to report feeling well after ECT, today however, with less energy. In bed, alert, attentive, well-engaged. Worries that what if it does not last? When do you want me outta here? Discussed being home when son Eliseo arrives, by February 22- Let's work toward it. Medication Compliance: Yes Side effects from medications: No Attending Groups: Yes Review of Systems Acute medical concerns: No Medical Review of Systems: unchanged Review of Systems Psychiatric: Reports anxiety, Reports depression and Reports difficulty concentrating Mental Status Exam Mental Status Exam Patient Appearance: Appropriate Patient Orientation: Person, Place, Time and Situation Level of Consciousness: Alert Patient Behavior: Appropriate, Talkative, Cooperative and Good Eye Contact Mood Description: Anxious and Apprehensive Affect Description: Apprehensive Patient Cognition Impaired: No Ability to Follow Directions: Good Speech Pattern: Spontaneous Speech Memory Description: Episodic Impaired Hallucinations: None Delusions: Not Present Thought Process: Intact Thought Content: positive for Intact Depressive Symptoms: Increased Anxiety Judgement: Fair Diagnostics Vital Signs (24Hr): Vital Signs - 24 hr 02/05/22 06:00 Temperature 97.9 F Pulse Rate 70 Respiratory Rate 16 Blood Pressure 111/76 Pulse Oximetry 96 BMI result Body Mass Index 26.4 Labs Results: 01/28/22 11:08 02/04/22 09:55 Labs: Laboratory Results - last 48 hr 02/04/22 09:55 Sodium 140 Potassium 4.0 Chloride 104 Carbon Dioxide 30 H Anion Gap 10 L BUN 14 Creatinine 1.04 Estim Creat Clear Calc 86.0 Estimated GFR > 60 Random Glucose 101 Calcium 9.0 Magnesium 2.1 Total Bilirubin 0.6 AST 7 ALT 9 Alkaline Phosphatase 61 Total Protein 5.3 L Albumin 3.6 Imaging Radiology Impressions: ITS Impressions Foot X-Ray 11/08/21 17:32 IMPRESSION: Tiny Achilles heel spur. Otherwise unremarkable appearance of the left foot. Cervical Spine X-Ray 11/22/21 14:50 IMPRESSION: No fracture or malalignment. Mild degenerative changes. Forearm X-Ray 11/22/21 14:50 IMPRESSION: No acute fractures or malalignment within the imaged left upper extremity. Hip X-Ray 11/22/21 14:50 IMPRESSION: No acute fractures or malalignment. Humerus X-Ray 11/22/21 14:50 IMPRESSION: No acute fractures or malalignment within the imaged left upper extremity. Shoulder X-Ray 11/22/21 14:50 IMPRESSION: No acute fractures or malalignment within the imaged left upper extremity. Head CT 12/22/21 16:42 IMPRESSION: No acute intracranial pathology. Hand X-Ray 12/25/21 08:38 IMPRESSION: No soft tissue foreign body seen. Brain MRI 12/25/21 09:20 IMPRESSION: No acute intracranial findings. No acute infarcts. There is mild chronic microangiopathy. No pathologic enhancement. Lumbar Puncture Fluoroscopy 12/27/21 14:00 IMPRESSION: Successful ultrasound-guided lumbar puncture performed without immediate complications. Barium Swallow X-Ray 01/10/22 08:29 IMPRESSION: Unremarkable barium swallow in upright and supine position. Occasional secondary and tertiary peristalsis seen in mid and distal esophagus with solid foot but no obstruction.. Medications Medications Current Medications Acetaminophen (Acetaminophen 325 Mg Tablet) 650 mg PO Q6H PRN PRN Reason: Headache/Pain Mild Scale (1-3) Last Admin: 01/30/22 10:33 Dose: 650 mg Documented by: Al Hydroxide/Mg Hydroxide (Magnesium Hydrox/Alum Hydrox 30 Ml Oral.Susp) 30 ml PO Q6H PRN PRN Reason: Heartburn/Nausea Amantadine HCl (Amantadine Hcl 100 Mg Capsule) 100 mg PO BID COUNT INCLUDES THE [facility] Last Admin: 02/05/22 09:04 Dose: 100 mg Documented by: Ferrous Sulfate (Ferrous Sulfate 324 Mg Tablet.) 324 mg PO BEDTIME COUNT INCLUDES THE [facility] Last Admin: 02/04/22 20:19 Dose: 324 mg Documented by: Hydroxyzine HCl (Hydroxyzine Hcl 25 Mg Tablet) 25 mg PO Q6H PRN PRN Reason: Anxiety Last Admin: 12/16/21 22:28 Dose: 25 mg Documented by: Ibuprofen (Ibuprofen 800 Mg Tablet) 800 mg PO Q8H PRN PRN Reason: Pain, Mild (Pain Scale 1-3) Loperamide HCl (Loperamide Hcl 2 Mg Capsule) 2 mg PO Q6H PRN PRN Reason: Diarrhea Last Admin: 11/17/21 13:40 Dose: 2 mg Documented by: Magnesium Hydroxide (Milk Of Magnesia 30 Ml Oral.Susp) 30 ml PO DAILY PRN PRN Reason: Constipation Omeprazole (Omeprazole 40 Mg Capsule.) 40 mg PO DAILY@0630 COUNT INCLUDES THE [facility] Last Admin: 02/05/22 06:41 Dose: 40 mg Documented by: Polyethylene Glycol (Polyethylene Glycol 3350 17 Gm Powd.Pack) 17 gm PO DAILY COUNT INCLUDES THE [facility] Last Admin: 02/05/22 09:04 Dose: 17 gm Documented by: Psyllium Hydrophilic Mucilloid (Psyllium Seed 3.4 Gm Powd.Pack) 3.4 gm PO BEDTIME COUNT INCLUDES THE [facility] Last Admin: 02/04/22 20:19 Dose: Not Given Documented by: Risperidone (Risperidone 1 Mg Tablet) 1 mg PO BID COUNT INCLUDES THE [facility] Last Admin: 02/05/22 09:04 Dose: 1 mg Documented by: Sucralfate (Sucralfate 1 Gm Tablet) 1 gm PO TID COUNT INCLUDES THE [facility] Last Admin: 02/05/22 15:01 Dose: 1 gm Documented by: Trazodone HCl (Trazodone Hcl 50 Mg Tablet) 50 mg PO BEDTIME PRN PRN Reason: Insomnia Allergies Allergies Allergy/AdvReac Type Severity Reaction Status Date / Time No Known Allergies Allergy Unverified 11/07/21 21:23 Assessment & Plan Assessment & Plan (1) MDD (major depressive disorder), recurrent, severe, with psychosis: Status: Acute Code(s): F33.3 - Major depressive disorder, recurrent, severe with psychotic symptoms (2) Encephalopathy chronic: Status: Acute Code(s): G93.49 - Other encephalopathy Plan Remains depressed, anergic, unable to make a clear decision/choice. HCP activated, today, pt able to give SSN for court paperwork Continue Cymbalta, Risperdal, Sertraline Work with pt, , team to move forward with plan of care- prepare for ECT Pt completed barium swallow- results negative 01/11/22 Increase Risperdal to 2 mg bid 01/12/2022 Patient seen extensively reviewed diagnosis expectation for treatment with ECT risks benefits alternatives and lack of response to medication. Also reviewed patient's medical history that there is does not appear to be any other etiology to his condition. Again reviewed ECT procedure continues to have difficulty with decision making in taking information 01/14/22 Support, educate, prepare for HCP affirmation-ECT 01/16/22 Increase Cymbalta to 60 mg daily Discontinue Sertraline 01/17/22 Decrease Cymbalta to 30 mg daily-Gerry is planning on beginning to refuse meds, will taper back slowly should he choose tapering. 01/19/22: no change to the above 01/20/22: no change 01/21/22: Anticipating court validation of HCP with increase in fear, anxiety and resulting anger. States he plans to refuse medications-dose of Cymbalta decreased to prepare to manage SE, however, pt is compliant with regime at this time. 01/23/22: Continue current plan Offer support, answer questions, address concerns, attempt to manage pt's anxiety regarding treatment 01/24/22: Court hearing 01/25/22. Offer support to pt. Continue current medications-pt has not refused his regime he reports today. 01/25/22: Discussed with team-Initial planning with Gerry and his to address negative emotions surrounding treatment and outcome so we may help Gerry move toward his recovery in a positive frame of reference. 01/26 no changes to current tx regimen 01/27 no changes to current tx regimen 01/28/22: Medical clearance for tentative ECT on 01/30/22. 01/29/22: Prepare for ECT on 01/30/22. Today, pt continues to decline further education and support 01/30/22: Continue current plan of care 01/31/22: Continue current plan of care, appears improved. 02/01/22: ECT#2. Significant improvement, possible hypomania. Discussed with Dr. Inman. We will discontinue Cymbalta for a time to prevent promotion of [place] 02/02/2022: Continue current regimen and treatment and continuation of ECT. No changes were made today 02/03/2022: Continue current regimen and plans. Continue ECT. Safety checks were changed to every 15 minutes 02/04/22: Continue current plan. Monitor for hypomania. 02/05/22: No hypomania observed today. ECT 02/06/22. I spent minutes with the patient and/or on the patient floor today, greater than?50% of which was spent counseling/coordinating care. Patient educated on: ECT and therapeutic strategies Informed Consent: understands and further education needed Reason for contiued inpatient stay Substantial Risk for: inability to function and rapid decompensation
[2022-02-05] MEDS: Ferrous Sulfate 324 MG TABLET.DR PO (22:08)
[2022-02-06] VITALS (10 sets, daily range): BP systolic 97–145; BP diastolic 57–92; PULSE 61–77; RESP 16–21; TEMP 36.3–36.9; O2SAT 95–98
--- NOTE | 2022-02-06 07:46 | MHC.SHP ---
Pre-Procedural Eval Section A Date of Service: 02/06/22 The patient is an INPATIENT: Yes Changes since office visit: Yes Changes in Medication and Yes Patient answered all questions; No Cold of Flu in the past 2 weeks and No New Medical Problems The History & Physical has been completed within 30 days and I have reviewed it.: Yes Section B Chief Complaint: unspecified bipolar and related d/o Allergies: Allergies Allergy/AdvReac Type Severity Reaction Status Date / Time No Known Allergies Allergy Unverified 11/07/21 21:23 Plan I have reviewed the history and physical and performed a pertinent physical examination on my patient. No changes have occurred unless specified.
--- NOTE | 2022-02-06 07:47 | HO.ECTPROC ---
ECT Procedure Note Diagnosis/Treatment Date of Service: 02/06/22 Diagnosis: Bipolar disorder Previous ECT Date: 02/04/22 Current Treatment Number: 4 Treatment: Series Interval Clinical Notes: some flattening again inc pw 0.5 ECT Settings Device: THYMATRON DGx Electrode Placement: Right Unilateral Program/Pulse Width: 0.50 Energy Percent: 50 Seizure Duration By EEG (in seconds): 41 By Motor Observation (in seconds): 18 Medications Administration General Anesthetic: Etomidate (16) Muscle Relaxant: Succinylcholine (120) and Rocuronium (5) Airway Management Airway Management: Bag Mask Ventilation Treatment Recommendations Program/Pulse Width: 0.50 (100) Energy Percent: 100 Notes: inc energy consider restart cymargiealta has post op agitation Pt Tolerated Procedure w/o Issue: Yes
[2022-02-06] MEDS: Sucralfate 1 GM TABLET PO ×3 (09:24→20:14)
[2022-02-06] MEDS: amantadine HCL 100 MG CAPSULE PO ×2 (09:24→20:14)
[2022-02-06] MEDS: risperiDONE 1 MG TABLET PO ×2 (09:24→20:14)
[2022-02-06] MEDS: polyethylene glycoL 3350 17 GM POWD.PACK PO (09:24)
--- NOTE | 2022-02-06 10:42 | HO.PSYCHPN ---
Subjective Subjective Date of Service: 02/06/22 Reason For Visit: unspecified bipolar and related d/o Subjective Notes: Conditional Voluntary (HCP activation) Healthcare Proxy: Yes Guardianship: No Medical Problems Affecting Mental Status: No Interim History: Re-initiated Cymbalta 30 mg without adverse event. Discussion of discharge with pt so he may be home when his son returns from [place]. Reports feeling relief, reports tolerating ECT and asks if he is dreaming about going home- I never thought I would be well enough. Treatment to continue 02/08/22. Medication Compliance: Yes Side effects from medications: No Attending Groups: Yes Review of Systems Acute medical concerns: No Review of Systems Reports confusion and Reports memory loss Psychiatric: Reports anxiety, Reports confusion and Reports memory loss Mental Status Exam Mental Status Exam Patient Appearance: Appropriate Patient Orientation: Person, Place, Time and Situation Level of Consciousness: Alert Patient Behavior: Appropriate, Talkative, Cooperative and Good Eye Contact Mood Description: Anxious and Apprehensive Affect Description: Apprehensive Patient Cognition Impaired: No Ability to Follow Directions: Good Speech Pattern: Spontaneous Speech Memory Description: Episodic Impaired Hallucinations: None Delusions: Not Present Thought Process: Intact Thought Content: positive for Intact Depressive Symptoms: Increased Anxiety Judgement: Fair Diagnostics Vital Signs (24Hr): Vital Signs - 24 hr 02/05/22 18:00 02/06/22 05:48 02/06/22 05:49 Temperature 97.6 F 98.4 F 98.4 F Pulse Rate 79 62 62 Respiratory Rate 16 17 Blood Pressure 148/82 H 135/63 135/63 Pulse Oximetry 97 98 02/06/22 08:11 02/06/22 08:16 02/06/22 08:21 Temperature 98.0 F Pulse Rate 61 75 69 Respiratory Rate 17 21 H 17 Blood Pressure 141/61 H 97/57 L 97/70 Pulse Oximetry 98 95 97 02/06/22 08:26 02/06/22 08:41 02/06/22 08:56 Temperature 98.3 F Pulse Rate 77 72 74 Respiratory Rate 16 18 17 Blood Pressure 125/73 138/90 H 145/92 H Pulse Oximetry 96 97 98 BMI result Body Mass Index 26.4 Labs Results: 01/28/22 11:08 02/04/22 09:55 Imaging Radiology Impressions: ITS Impressions Foot X-Ray 11/08/21 17:32 IMPRESSION: Tiny Achilles heel spur. Otherwise unremarkable appearance of the left foot. Cervical Spine X-Ray 11/22/21 14:50 IMPRESSION: No fracture or malalignment. Mild degenerative changes. Forearm X-Ray 11/22/21 14:50 IMPRESSION: No acute fractures or malalignment within the imaged left upper extremity. Hip X-Ray 11/22/21 14:50 IMPRESSION: No acute fractures or malalignment. Humerus X-Ray 11/22/21 14:50 IMPRESSION: No acute fractures or malalignment within the imaged left upper extremity. Shoulder X-Ray 11/22/21 14:50 IMPRESSION: No acute fractures or malalignment within the imaged left upper extremity. Head CT 12/22/21 16:42 IMPRESSION: No acute intracranial pathology. Hand X-Ray 12/25/21 08:38 IMPRESSION: No soft tissue foreign body seen. Brain MRI 12/25/21 09:20 IMPRESSION: No acute intracranial findings. No acute infarcts. There is mild chronic microangiopathy. No pathologic enhancement. Lumbar Puncture Fluoroscopy 12/27/21 14:00 IMPRESSION: Successful ultrasound-guided lumbar puncture performed without immediate complications. Barium Swallow X-Ray 01/10/22 08:29 IMPRESSION: Unremarkable barium swallow in upright and supine position. Occasional secondary and tertiary peristalsis seen in mid and distal esophagus with solid foot but no obstruction.. Medications Medications Current Medications Amantadine HCl (Amantadine Hcl 100 Mg Capsule) 100 mg PO BID [facility] Last Admin: 02/06/22 09:24 Dose: 100 mg Documented by: Duloxetine HCl (Duloxetine Hcl 30 Mg Capsule.) 30 mg PO DAILY [facility] Ferrous Sulfate (Ferrous Sulfate 324 Mg Tablet.) 324 mg PO BEDTIME [facility] Last Admin: 02/05/22 22:08 Dose: 324 mg Documented by: Ibuprofen (Ibuprofen 800 Mg Tablet) 800 mg PO Q8H PRN PRN Reason: Pain, Mild (Pain Scale 1-3) Loperamide HCl (Loperamide Hcl 2 Mg Capsule) 2 mg PO Q6H PRN PRN Reason: Diarrhea Last Admin: 11/17/21 13:40 Dose: 2 mg Documented by: Polyethylene Glycol (Polyethylene Glycol 3350 17 Gm Powd.Pack) 17 gm PO DAILY [facility] Last Admin: 02/06/22 09:24 Dose: 17 gm Documented by: Psyllium Hydrophilic Mucilloid (Psyllium Seed 3.4 Gm Powd.Pack) 3.4 gm PO BEDTIME [facility] Last Admin: 02/05/22 22:09 Dose: Not Given Documented by: Risperidone (Risperidone 1 Mg Tablet) 1 mg PO BID [facility] Last Admin: 02/06/22 09:24 Dose: 1 mg Documented by: Sucralfate (Sucralfate 1 Gm Tablet) 1 gm PO TID [facility] Last Admin: 02/06/22 09:24 Dose: 1 gm Documented by: Allergies Allergies Allergy/AdvReac Type Severity Reaction Status Date / Time No Known Allergies Allergy Unverified 11/07/21 21:23 Assessment & Plan Assessment & Plan (1) MDD (major depressive disorder), recurrent, severe, with psychosis: Status: Acute Code(s): F33.3 - Major depressive disorder, recurrent, severe with psychotic symptoms (2) Encephalopathy chronic: Status: Acute Code(s): G93.49 - Other encephalopathy Plan Remains depressed, anergic, unable to make a clear decision/choice. HCP activated, today, pt able to give SSN for court paperwork Continue Cymbalta, Risperdal, Sertraline Work with pt, , team to move forward with plan of care- prepare for ECT Pt completed barium swallow- results negative 01/11/22 Increase Risperdal to 2 mg bid 01/12/2022 Patient seen extensively reviewed diagnosis expectation for treatment with ECT risks benefits alternatives and lack of response to medication. Also reviewed patient's medical history that there is does not appear to be any other etiology to his condition. Again reviewed ECT procedure continues to have difficulty with decision making in taking information 01/14/22 Support, educate, prepare for HCP affirmation-ECT 01/16/22 Increase Cymbalta to 60 mg daily Discontinue Sertraline 01/17/22 Decrease Cymbalta to 30 mg daily-Gerry is planning on beginning to refuse meds, will taper back slowly should he choose tapering. 01/19/22: no change to the above 01/20/22: no change 01/21/22: Anticipating court validation of HCP with increase in fear, anxiety and resulting anger. States he plans to refuse medications-dose of Cymbalta decreased to prepare to manage SE, however, pt is compliant with regime at this time. 01/23/22: Continue current plan Offer support, answer questions, address concerns, attempt to manage pt's anxiety regarding treatment 01/24/22: Court hearing 01/25/22. Offer support to pt. Continue current medications-pt has not refused his regime he reports today. 01/25/22: Discussed with team-Initial planning with Gerry and his to address negative emotions surrounding treatment and outcome so we may help Gerry move toward his recovery in a positive frame of reference. 01/26 no changes to current tx regimen 01/27 no changes to current tx regimen 01/28/22: Medical clearance for tentative ECT on 01/30/22. 01/29/22: Prepare for ECT on 01/30/22. Today, pt continues to decline further education and support 01/30/22: Continue current plan of care 01/31/22: Continue current plan of care, appears improved. 02/01/22: ECT#2. Significant improvement, possible hypomania. Discussed with Dr. Inman. We will discontinue Cymbalta for a time to prevent promotion of [place] 02/02/2022: Continue current regimen and treatment and continuation of ECT. No changes were made today 02/03/2022: Continue current regimen and plans. Continue ECT. Safety checks were changed to every 15 minutes 02/04/22: Continue current plan. Monitor for hypomania. 02/05/22: No hypomania observed today. ECT 02/06/22. 02/06/22: Discharge planning with pt and family. I spent minutes with the patient and/or on the patient floor today, greater than?50% of which was spent counseling/coordinating care. Patient educated on: therapeutic strategies Informed Consent: understands and further education needed Reason for contiued inpatient stay Substantial Risk for: inability to function and rapid decompensation
[2022-02-06] MEDS: DULoxetine HCl 30 MG CAPSULE.DR PO (14:42)
[2022-02-06] MEDS: Ferrous Sulfate 324 MG TABLET.DR PO (20:14)
[2022-02-07 06:00] VITALS: BP 120/74; PULSE 76; RESP 18; TEMP 36.5; O2SAT 97
[2022-02-07 07:00] VITALS: BMI 27.3
[2022-02-07] MEDS: risperiDONE 1 MG TABLET PO ×2 (08:10→20:15)
[2022-02-07] MEDS: polyethylene glycoL 3350 17 GM POWD.PACK PO (08:10)
[2022-02-07] MEDS: DULoxetine HCl 30 MG CAPSULE.DR PO (08:10)
[2022-02-07] MEDS: amantadine HCL 100 MG CAPSULE PO ×2 (08:10→20:15)
[2022-02-07] MEDS: Sucralfate 1 GM TABLET PO ×3 (08:10→20:15)
[2022-02-07 18:00] VITALS: BP 132/81; PULSE 57
--- NOTE | 2022-02-07 18:48 | HO.PSYCHPN ---
Subjective Subjective Date of Service: 02/07/22 Reason For Visit: unspecified bipolar and related d/o Subjective Notes: Conditional Voluntary (HCP activation and validation) Healthcare Proxy: Yes Guardianship: No Medical Problems Affecting Mental Status: No Interim History: Discussed discharge with pt. He is pleased that this will be possible for him. Care review with pt's Zoraida Discussed endocrine consult with [facility], out patient care planning, medications, and her concerns for pt once he comes home after having acute illness for the past six months. Medication Compliance: Yes Side effects from medications: No Attending Groups: Intermittent Review of Systems Acute medical concerns: No Medical Review of Systems: unchanged Review of Systems Reports confusion and Reports memory loss Psychiatric: Reports anxiety, Reports confusion and Reports memory loss Mental Status Exam Mental Status Exam Patient Appearance: Appropriate Patient Orientation: Person, Place, Time and Situation Level of Consciousness: Alert Patient Behavior: Appropriate, Talkative, Cooperative and Good Eye Contact Mood Description: Anxious and Apprehensive Affect Description: Apprehensive Patient Cognition Impaired: No Ability to Follow Directions: Good Speech Pattern: Spontaneous Speech Memory Description: Episodic Impaired Hallucinations: None Delusions: Not Present Thought Process: Intact Thought Content: positive for Intact Depressive Symptoms: Increased Anxiety Judgement: Fair Diagnostics Vital Signs (24Hr): Vital Signs - 24 hr 02/06/22 20:00 02/07/22 06:00 02/07/22 18:00 Temperature 97.3 F 97.7 F Pulse Rate 64 76 57 Respiratory Rate 18 Blood Pressure 103/57 L 120/74 132/81 Pulse Oximetry 95 97 BMI result Body Mass Index 27.3 Labs Results: 01/28/22 11:08 02/04/22 09:55 Imaging Radiology Impressions: ITS Impressions Foot X-Ray 11/08/21 17:32 IMPRESSION: Tiny Achilles heel spur. Otherwise unremarkable appearance of the left foot. Cervical Spine X-Ray 11/22/21 14:50 IMPRESSION: No fracture or malalignment. Mild degenerative changes. Forearm X-Ray 11/22/21 14:50 IMPRESSION: No acute fractures or malalignment within the imaged left upper extremity. Hip X-Ray 11/22/21 14:50 IMPRESSION: No acute fractures or malalignment. Humerus X-Ray 11/22/21 14:50 IMPRESSION: No acute fractures or malalignment within the imaged left upper extremity. Shoulder X-Ray 11/22/21 14:50 IMPRESSION: No acute fractures or malalignment within the imaged left upper extremity. Head CT 12/22/21 16:42 IMPRESSION: No acute intracranial pathology. Hand X-Ray 12/25/21 08:38 IMPRESSION: No soft tissue foreign body seen. Brain MRI 12/25/21 09:20 IMPRESSION: No acute intracranial findings. No acute infarcts. There is mild chronic microangiopathy. No pathologic enhancement. Lumbar Puncture Fluoroscopy 12/27/21 14:00 IMPRESSION: Successful ultrasound-guided lumbar puncture performed without immediate complications. Barium Swallow X-Ray 01/10/22 08:29 IMPRESSION: Unremarkable barium swallow in upright and supine position. Occasional secondary and tertiary peristalsis seen in mid and distal esophagus with solid foot but no obstruction.. Medications Medications Current Medications Amantadine HCl (Amantadine Hcl 100 Mg Capsule) 100 mg PO BID [facility] Last Admin: 02/07/22 08:10 Dose: 100 mg Documented by: Duloxetine HCl (Duloxetine Hcl 30 Mg Capsule.) 30 mg PO DAILY [facility] Last Admin: 02/07/22 08:10 Dose: 30 mg Documented by: Ferrous Sulfate (Ferrous Sulfate 324 Mg Tablet.) 324 mg PO BEDTIME [facility] Last Admin: 02/06/22 20:14 Dose: 324 mg Documented by: Ibuprofen (Ibuprofen 800 Mg Tablet) 800 mg PO Q8H PRN PRN Reason: Pain, Mild (Pain Scale 1-3) Loperamide HCl (Loperamide Hcl 2 Mg Capsule) 2 mg PO Q6H PRN PRN Reason: Diarrhea Last Admin: 11/17/21 13:40 Dose: 2 mg Documented by: Polyethylene Glycol (Polyethylene Glycol 3350 17 Gm Powd.Pack) 17 gm PO DAILY [facility] Last Admin: 02/07/22 08:10 Dose: 17 gm Documented by: Psyllium Hydrophilic Mucilloid (Psyllium Seed 3.4 Gm Powd.Pack) 3.4 gm PO BEDTIME [facility] Last Admin: 02/07/22 15:36 Dose: Not Given Documented by: Risperidone (Risperidone 1 Mg Tablet) 1 mg PO BID [facility] Last Admin: 02/07/22 08:10 Dose: 1 mg Documented by: Sucralfate (Sucralfate 1 Gm Tablet) 1 gm PO TID [facility] Last Admin: 02/07/22 14:09 Dose: 1 gm Documented by: Allergies Allergies Allergy/AdvReac Type Severity Reaction Status Date / Time No Known Allergies Allergy Unverified 11/07/21 21:23 Assessment & Plan Assessment & Plan (1) MDD (major depressive disorder), recurrent, severe, with psychosis: Status: Acute Code(s): F33.3 - Major depressive disorder, recurrent, severe with psychotic symptoms (2) Encephalopathy chronic: Status: Acute Code(s): G93.49 - Other encephalopathy Plan Remains depressed, anergic, unable to make a clear decision/choice. HCP activated, today, pt able to give SSN for court paperwork Continue Cymbalta, Risperdal, Sertraline Work with pt, , team to move forward with plan of care- prepare for ECT Pt completed barium swallow- results negative 01/11/22 Increase Risperdal to 2 mg bid 01/12/2022 Patient seen extensively reviewed diagnosis expectation for treatment with ECT risks benefits alternatives and lack of response to medication. Also reviewed patient's medical history that there is does not appear to be any other etiology to his condition. Again reviewed ECT procedure continues to have difficulty with decision making in taking information 01/14/22 Support, educate, prepare for HCP affirmation-ECT 01/16/22 Increase Cymbalta to 60 mg daily Discontinue Sertraline 01/17/22 Decrease Cymbalta to 30 mg daily-Gerry is planning on beginning to refuse meds, will taper back slowly should he choose tapering. 01/19/22: no change to the above 01/20/22: no change 01/21/22: Anticipating court validation of HCP with increase in fear, anxiety and resulting anger. States he plans to refuse medications-dose of Cymbalta decreased to prepare to manage SE, however, pt is compliant with regime at this time. 01/23/22: Continue current plan Offer support, answer questions, address concerns, attempt to manage pt's anxiety regarding treatment 01/24/22: Court hearing 01/25/22. Offer support to pt. Continue current medications-pt has not refused his regime he reports today. 01/25/22: Discussed with team-Initial planning with Gerry and his to address negative emotions surrounding treatment and outcome so we may help Gerry move toward his recovery in a positive frame of reference. 01/26 no changes to current tx regimen 3/13 no changes to current tx regimen 01/28/22: Medical clearance for tentative ECT on 01/30/22. 01/29/22: Prepare for ECT on 01/30/22. Today, pt continues to decline further education and support 01/30/22: Continue current plan of care 01/31/22: Continue current plan of care, appears improved. 02/01/22: ECT#2. Significant improvement, possible hypomania. Discussed with Dr. Inman. We will discontinue Cymbalta for a time to prevent promotion of [place] 02/02/2022: Continue current regimen and treatment and continuation of ECT. No changes were made today 02/03/2022: Continue current regimen and plans. Continue ECT. Safety checks were changed to every 15 minutes 02/04/22: Continue current plan. Monitor for hypomania. 02/05/22: No hypomania observed today. ECT 02/06/22. 02/06/22: Discharge planning with pt and family. 02/07/22: ECT 02/08. Continue current plan of care. I spent minutes with the patient and/or on the patient floor today, greater than?50% of which was spent counseling/coordinating care. Patient educated on: therapeutic strategies Informed Consent: understands and further education needed Reason for contiued inpatient stay Substantial Risk for: inability to function and rapid decompensation
[2022-02-07] MEDS: Ferrous Sulfate 324 MG TABLET.DR PO (20:15)
[2022-02-08] VITALS (8 sets, daily range): BP systolic 100–186; BP diastolic 57–158; PULSE 66–81; RESP 14–19; TEMP 36.9–37.1; O2SAT 95–99
--- NOTE | 2022-02-08 07:51 | MHC.SHP ---
Pre-Procedural Eval Section A Date of Service: 02/08/22 The patient is an INPATIENT: Yes Changes since office visit: No Cold of Flu in the past 2 weeks, No New Medical Problems, No Changes in Medication and No Patient answered all questions The History & Physical has been completed within 30 days and I have reviewed it.: Yes Section B Chief Complaint: unspecified bipolar and related d/o Allergies: Allergies Allergy/AdvReac Type Severity Reaction Status Date / Time No Known Allergies Allergy Unverified 11/07/21 21:23 Plan I have reviewed the history and physical and performed a pertinent physical examination on my patient. No changes have occurred unless specified.
--- NOTE | 2022-02-08 07:52 | HO.ECTPROC ---
ECT Procedure Note Diagnosis/Treatment Date of Service: 02/08/22 Diagnosis: Major Depressive Disorder Previous ECT Date: 02/06/22 Interval Clinical Notes: The patient reported improvement of dysphoria with the 2nd ECT. Today, he had a brighter affect, even smiling and joking at times. ECT Settings Device: THYMATRON DGx Electrode Placement: Right Unilateral Program/Pulse Width: 0.50 Energy Percent: 50 Seizure Duration By EEG (in seconds): 18 By Motor Observation (in seconds): 31 Medications Administration General Anesthetic: Etomidate (18) Muscle Relaxant: Succinylcholine (120 and roncuronium) Ancillary Medications Anti-emetics: Zofran - Pre ECT Miscillaneous Medications: Propofol Airway Management Airway Management: Bag Mask Ventilation Treatment Recommendations No Changes Recommended: No change Pt Tolerated Procedure w/o Issue: Yes
--- NOTE | 2022-02-08 09:11 | HO.POSTANES ---
Post Anesthesia Evaluation Post Anesthesia Evaluation Vital Signs: Vital Signs Temp Pulse Resp BP Pulse Ox 02/08/22 08:59 98.5 F 67 16 138/85 95 02/08/22 08:46 78 16 134/85 95 02/08/22 08:32 80 16 186/158 H 95 02/08/22 08:28 81 15 142/85 H 96 02/08/22 08:23 79 19 136/95 H 97 02/08/22 08:18 98.5 F 74 16 156/99 H 96 02/08/22 06:00 98.4 F 66 16 126/76 99 Anesthesia: General Mental Status: Awake Pain Control: Satisfactory Nausea/Vomiting: None Hydration: Adequate Anesthesia-Related Issues: No Anes. Related Issues
[2022-02-08] MEDS: DULoxetine HCl 30 MG CAPSULE.DR PO (09:17)
[2022-02-08] MEDS: amantadine HCL 100 MG CAPSULE PO ×2 (09:17→20:42)
[2022-02-08] MEDS: Sucralfate 1 GM TABLET PO ×3 (09:17→20:42)
[2022-02-08] MEDS: risperiDONE 1 MG TABLET PO ×2 (09:17→20:41)
[2022-02-08] MEDS: polyethylene glycoL 3350 17 GM POWD.PACK PO (09:17)
--- NOTE | 2022-02-08 14:18 | P.PNPSI_ITS ---
Subjective Subjective Date of Service: 02/08/22 Reason For Visit: unspecified bipolar and related d/o Interim History: Met with pt after ECT. He was visable in the milieu, talking on the phone, supportive of another ECT pt-telling her he was the unit expert and attempting to place her at ease with laughing and joking. He reports feeling stunned to be thinking of discharge next week, I just cannot believe it, all of this is like a dream for me. Reports sleep and appetite are intact, reports mood continues to improve, denies any sx or feeling of hypomania, states, this ECT is giving me my life back. Focused on how much paperwork do you and I need to do to get me out of here since I have been her so long. Encouraged Gerry not to worry about this and he agreed. Medication Compliance: Yes Side effects from medications: No Attending Groups: Intermittent Review of Systems Acute medical concerns: No Medical Review of Systems: unchanged Review of Systems Psychiatric: Reports no additional psychiatric complaints and Reports anxiety Mental Status Exam Mental Status Exam Patient Appearance: Appropriate Patient Orientation: Person, Place, Time and Situation Level of Consciousness: Alert Patient Behavior: Appropriate, Talkative, Cooperative and Good Eye Contact Mood Description: Anxious and Apprehensive Affect Description: Apprehensive Patient Cognition Impaired: No Ability to Follow Directions: Good Speech Pattern: Spontaneous Speech Memory Description: Episodic Impaired Hallucinations: None Delusions: Not Present Thought Process: Intact Thought Content: positive for Intact Depressive Symptoms: Increased Anxiety Judgement: Fair Diagnostics Vital Signs (24Hr): Vital Signs - 24 hr 02/07/22 18:00 02/08/22 06:00 02/08/22 08:18 Temperature 98.4 F 98.5 F Pulse Rate 57 66 74 Respiratory Rate 16 16 Blood Pressure 132/81 126/76 156/99 H Pulse Oximetry 99 96 02/08/22 08:23 02/08/22 08:28 02/08/22 08:32 Temperature Pulse Rate 79 81 80 Respiratory Rate 19 15 16 Blood Pressure 136/95 H 142/85 H 186/158 H Pulse Oximetry 97 96 95 02/08/22 08:46 02/08/22 08:59 Temperature 98.5 F Pulse Rate 78 67 Respiratory Rate 16 16 Blood Pressure 134/85 138/85 Pulse Oximetry 95 95 BMI result Body Mass Index 27.3 Labs Results: 01/28/22 11:08 02/04/22 09:55 Imaging Radiology Impressions: ITS Impressions Foot X-Ray 11/08/21 17:32 IMPRESSION: Tiny Achilles heel spur. Otherwise unremarkable appearance of the left foot. Cervical Spine X-Ray 11/22/21 14:50 IMPRESSION: No fracture or malalignment. Mild degenerative changes. Forearm X-Ray 11/22/21 14:50 IMPRESSION: No acute fractures or malalignment within the imaged left upper extremity. Hip X-Ray 11/22/21 14:50 IMPRESSION: No acute fractures or malalignment. Humerus X-Ray 11/22/21 14:50 IMPRESSION: No acute fractures or malalignment within the imaged left upper extremity. Shoulder X-Ray 11/22/21 14:50 IMPRESSION: No acute fractures or malalignment within the imaged left upper extremity. Head CT 12/22/21 16:42 IMPRESSION: No acute intracranial pathology. Hand X-Ray 12/25/21 08:38 IMPRESSION: No soft tissue foreign body seen. Brain MRI 12/25/21 09:20 IMPRESSION: No acute intracranial findings. No acute infarcts. There is mild chronic microangiopathy. No pathologic enhancement. Lumbar Puncture Fluoroscopy 12/27/21 14:00 IMPRESSION: Successful ultrasound-guided lumbar puncture performed without immediate complications. Barium Swallow X-Ray 01/10/22 08:29 IMPRESSION: Unremarkable barium swallow in upright and supine position. Occasional secondary and tertiary peristalsis seen in mid and distal esophagus with solid foot but no obstruction.. Medications Medications Current Medications Amantadine HCl (Amantadine Hcl 100 Mg Capsule) 100 mg PO BID [facility] Last Admin: 02/08/22 09:17 Dose: 100 mg Documented by: Duloxetine HCl (Duloxetine Hcl 30 Mg Capsule.) 30 mg PO DAILY [facility] Last Admin: 02/08/22 09:17 Dose: 30 mg Documented by: Ferrous Sulfate (Ferrous Sulfate 324 Mg Tablet.) 324 mg PO BEDTIME [facility] Last Admin: 02/07/22 20:15 Dose: 324 mg Documented by: Ibuprofen (Ibuprofen 800 Mg Tablet) 800 mg PO Q8H PRN PRN Reason: Pain, Mild (Pain Scale 1-3) Loperamide HCl (Loperamide Hcl 2 Mg Capsule) 2 mg PO Q6H PRN PRN Reason: Diarrhea Last Admin: 11/17/21 13:40 Dose: 2 mg Documented by: Polyethylene Glycol (Polyethylene Glycol 3350 17 Gm Powd.Pack) 17 gm PO DAILY [facility] Last Admin: 02/08/22 09:17 Dose: 17 gm Documented by: Psyllium Hydrophilic Mucilloid (Psyllium Seed 3.4 Gm Powd.Pack) 3.4 gm PO BEDTIME [facility] Last Admin: 02/07/22 15:36 Dose: Not Given Documented by: Risperidone (Risperidone 1 Mg Tablet) 1 mg PO BID [facility] Last Admin: 02/08/22 09:17 Dose: 1 mg Documented by: Sucralfate (Sucralfate 1 Gm Tablet) 1 gm PO TID [facility] Last Admin: 02/08/22 14:07 Dose: 1 gm Documented by: Allergies Allergies Allergy/AdvReac Type Severity Reaction Status Date / Time No Known Allergies Allergy Unverified 11/07/21 21:23 Assessment & Plan Assessment & Plan (1) MDD (major depressive disorder), recurrent, severe, with psychosis: Status: Acute Code(s): F33.3 - Major depressive disorder, recurrent, severe with psychotic symptoms (2) Encephalopathy chronic: Status: Acute Code(s): G93.49 - Other encephalopathy Plan Remains depressed, anergic, unable to make a clear decision/choice. HCP activated, today, pt able to give SSN for court paperwork Continue Cymbalta, Risperdal, Sertraline Work with pt, , team to move forward with plan of care- prepare for ECT Pt completed barium swallow- results negative 01/11/22 Increase Risperdal to 2 mg bid 01/12/2022 Patient seen extensively reviewed diagnosis expectation for treatment with ECT risks benefits alternatives and lack of response to medication. Also reviewed patient's medical history that there is does not appear to be any other etiology to his condition. Again reviewed ECT procedure continues to have difficulty with decision making in taking information 01/14/22 Support, educate, prepare for HCP affirmation-ECT 01/16/22 Increase Cymbalta to 60 mg daily Discontinue Sertraline 01/17/22 Decrease Cymbalta to 30 mg daily-Gerry is planning on beginning to refuse meds, will taper back slowly should he choose tapering. 01/19/22: no change to the above 01/20/22: no change 01/21/22: Anticipating court validation of HCP with increase in fear, anxiety and resulting anger. States he plans to refuse medications-dose of Cymbalta decreased to prepare to manage SE, however, pt is compliant with regime at this time. 01/23/22: Continue current plan Offer support, answer questions, address concerns, attempt to manage pt's anxiety regarding treatment 01/24/22: Court hearing 01/25/22. Offer support to pt. Continue current medications-pt has not refused his regime he reports today. 01/25/22: Discussed with team-Initial planning with Gerry and his to address negative emotions surrounding treatment and outcome so we may help Gerry move toward his recovery in a positive frame of reference. 01/26 no changes to current tx regimen 01/27 no changes to current tx regimen 01/28/22: Medical clearance for tentative ECT on 01/30/22. 01/29/22: Prepare for ECT on 01/30/22. Today, pt continues to decline further education and support 01/30/22: Continue current plan of care 01/31/22: Continue current plan of care, appears improved. 02/01/22: ECT#2. Significant improvement, possible hypomania. Discussed with Dr. Inman. We will discontinue Cymbalta for a time to prevent promotion of [place] 02/02/2022: Continue current regimen and treatment and continuation of ECT. No changes were made today 02/03/2022: Continue current regimen and plans. Continue ECT. Safety checks were changed to every 15 minutes 02/04/22: Continue current plan. Monitor for hypomania. 02/05/22: No hypomania observed today. ECT 02/06/22. 02/06/22: Discharge planning with pt and family. 02/07/22: ECT 02/08. Continue current plan of care. 02/08/22: ECT scheduled for 3 sessions next week. Tentative discharge next Friday if plan remains on course and pt continues to improve. I spent minutes with the patient and/or on the patient floor today, greater than?50% of which was spent counseling/coordinating care. Patient educated on: ECT and therapeutic strategies Informed Consent: understands Reason for contiued inpatient stay Substantial Risk for: inability to function and rapid decompensation
[2022-02-08] MEDS: Ferrous Sulfate 324 MG TABLET.DR PO (20:42)
[2022-02-09 06:36] VITALS: BP 118/70; PULSE 63; RESP 15; TEMP 36.8; O2SAT 97
[2022-02-09] MEDS: Sucralfate 1 GM TABLET PO ×3 (08:51→20:32)
[2022-02-09] MEDS: risperiDONE 1 MG TABLET PO ×2 (08:51→20:32)
[2022-02-09] MEDS: amantadine HCL 100 MG CAPSULE PO ×2 (08:51→20:32)
[2022-02-09] MEDS: DULoxetine HCl 30 MG CAPSULE.DR PO (08:51)
--- NOTE | 2022-02-09 17:07 | P.PNPSI_ITS ---
Subjective Subjective Date of Service: 02/09/22 Reason For Visit: unspecified bipolar and related d/o Interim History: Patient seen and discussed with team. Patient evaluated today and upon interview pt reports he is not sure what to think about ect. Says the second day he felt better, the next time he did not notice anything, most recently he felt pretty good for most of day. Discussed doing PHP.? In the milieu, patient is safe and appropriate in behavior, somewhat more visible. Denies SI/SIB/HI upon inquiry. Denies irritability or assaultive ideation. Says he feels safe. Medication Compliance: Yes Side effects from medications: No Attending Groups: Yes Review of Systems Acute medical concerns: No Medical Review of Systems: unchanged Mental Status Exam Mental Status Exam Narrative: Patient Appearance:?Appropriate Patient Orientation:?Person, Place, Time and Situation Level of Consciousness:?Alert Patient Behavior:?Appropriate, Talkative, Cooperative and Good Eye Contact Mood Description:?Anxious and Apprehensive Affect Description:?Apprehensive Patient Cognition Impaired:?No Ability to Follow Directions:?Good Speech Pattern:?Spontaneous Speech Memory Description:?Episodic Impaired Hallucinations:?None Delusions:?Not Present Thought Process:?Intact Thought Content:?positive for Intact Depressive Symptoms:?Increased Anxiety Judgement:?Fair Diagnostics Vital Signs (24Hr): Vital Signs - 24 hr 02/10/22 19:43 02/11/22 06:07 Temperature 98 F 97.2 F Pulse Rate 72 78 Respiratory Rate 18 Blood Pressure 129/60 94/63 Pulse Oximetry 98 BMI result Body Mass Index 27.3 Labs Results: 01/28/22 11:08 02/04/22 09:55 Imaging Radiology Impressions: ITS Impressions Foot X-Ray 11/08/21 17:32 IMPRESSION: Tiny Achilles heel spur. Otherwise unremarkable appearance of the left foot. Cervical Spine X-Ray 11/22/21 14:50 IMPRESSION: No fracture or malalignment. Mild degenerative changes. Forearm X-Ray 11/22/21 14:50 IMPRESSION: No acute fractures or malalignment within the imaged left upper extremity. Hip X-Ray 11/22/21 14:50 IMPRESSION: No acute fractures or malalignment. Humerus X-Ray 11/22/21 14:50 IMPRESSION: No acute fractures or malalignment within the imaged left upper extremity. Shoulder X-Ray 11/22/21 14:50 IMPRESSION: No acute fractures or malalignment within the imaged left upper extremity. Head CT 12/22/21 16:42 IMPRESSION: No acute intracranial pathology. Hand X-Ray 12/25/21 08:38 IMPRESSION: No soft tissue foreign body seen. Brain MRI 12/25/21 09:20 IMPRESSION: No acute intracranial findings. No acute infarcts. There is mild chronic microangiopathy. No pathologic enhancement. Lumbar Puncture Fluoroscopy 12/27/21 14:00 IMPRESSION: Successful ultrasound-guided lumbar puncture performed without immediate complications. Barium Swallow X-Ray 01/10/22 08:29 IMPRESSION: Unremarkable barium swallow in upright and supine position. Occasional secondary and tertiary peristalsis seen in mid and distal esophagus with solid foot but no obstruction.. Medications Medications Current Medications Amantadine HCl (Amantadine Hcl 100 Mg Capsule) 100 mg PO BID REPLACED BY [facility] Last Admin: 02/10/22 20:53 Dose: 100 mg Documented by: Duloxetine HCl (Duloxetine Hcl 30 Mg Capsule.) 30 mg PO DAILY REPLACED BY [facility] Last Admin: 02/10/22 08:49 Dose: 30 mg Documented by: Ferrous Sulfate (Ferrous Sulfate 324 Mg Tablet.) 324 mg PO BEDTIME REPLACED BY [facility] Last Admin: 02/10/22 20:54 Dose: 324 mg Documented by: Ibuprofen (Ibuprofen 800 Mg Tablet) 800 mg PO Q8H PRN PRN Reason: Pain, Mild (Pain Scale 1-3) Polyethylene Glycol (Polyethylene Glycol 3350 17 Gm Powd.Pack) 17 gm PO DAILY REPLACED BY [facility] Last Admin: 02/10/22 08:49 Dose: Not Given Documented by: Psyllium Hydrophilic Mucilloid (Psyllium Seed 3.4 Gm Powd.Pack) 3.4 gm PO BEDTI ME REPLACED BY [facility] Last Admin: 02/10/22 20:54 Dose: 3.4 gm Documented by: Risperidone (Risperidone 1 Mg Tablet) 1 mg PO BID REPLACED BY [facility] Last Admin: 02/10/22 20:53 Dose: 1 mg Documented by: Sucralfate (Sucralfate 1 Gm Tablet) 1 gm PO TID REPLACED BY [facility] Last Admin: 02/10/22 20:54 Dose: 1 gm Documented by: Allergies Allergies Allergy/AdvReac Type Severity Reaction Status Date / Time No Known Allergies Allergy Unverified 11/07/21 21:23 Assessment & Plan Assessment & Plan (1) MDD (major depressive disorder), recurrent, severe, with psychosis: Status: Acute Code(s): F33.3 - Major depressive disorder, recurrent, severe with psychotic symptoms (2) Encephalopathy chronic: Status: Acute Code(s): G93.49 - Other encephalopathy Plan Remains depressed, anergic, unable to make a clear decision/choice. HCP activated, today, pt able to give SSN for court paperwork Continue Cymbalta, Risperdal, Sertraline Work with pt, , team to move forward with plan of care- prepare for ECT Pt completed barium swallow- results negative 01/11/22 Increase Risperdal to 2 mg bid 01/12/2022 Patient seen extensively reviewed diagnosis expectation for treatment with ECT risks benefits alternatives and lack of response to medication. Also reviewed patient's medical history that there is does not appear to be any other etiology to his condition. Again reviewed ECT procedure continues to have difficulty with decision making in taking information 01/14/22 Support, educate, prepare for HCP affirmation-ECT 01/16/22 Increase Cymbalta to 60 mg daily Discontinue Sertraline 01/17/22 Decrease Cymbalta to 30 mg daily-Gerry is planning on beginning to refuse meds, will taper back slowly should he choose tapering. 01/19/22: no change to the above 01/20/22: no change 01/21/22: Anticipating court validation of HCP with increase in fear, anxiety and resulting anger. States he plans to refuse medications-dose of Cymbalta decreased to prepare to manage SE, however, pt is compliant with regime at this time. 01/23/22: Continue current plan Offer support, answer questions, address concerns, attempt to manage pt's anxiety regarding treatment 01/24/22: Court hearing 01/25/22. Offer support to pt. Continue current medications-pt has not refused his regime he reports today. 01/25/22: Discussed with team-Initial planning with Gerry and his to address negative emotions surrounding treatment and outcome so we may help Gerry move toward his recovery in a positive frame of reference. 01/26 no changes to current tx regimen 01/27 no changes to current tx regimen 01/28/22: Medical clearance for tentative ECT on 01/30/22. 01/29/22: Prepare for ECT on 01/30/22. Today, pt continues to decline further education and support 01/30/22: Continue current plan of care 01/31/22: Continue current plan of care, appears improved. 02/01/22: ECT#2. Significant improvement, possible hypomania. Discussed with Dr. Inman. We will discontinue Cymbalta for a time to prevent promotion of [place] 02/02/2022: Continue current regimen and treatment and continuation of ECT. No changes were made today 02/03/2022: Continue current regimen and plans. Continue ECT. Safety checks were changed to every 15 minutes 02/04/22: Continue current plan. Monitor for hypomania. 02/05/22: No hypomania observed today. ECT 02/06/22. 02/06/22: Discharge planning with pt and family. 02/07/22: ECT 02/08. Continue current plan of care. 02/08/22: ECT scheduled for 3 sessions next week. Tentative discharge next Friday if plan remains on course and pt continues to improve. 02/09/22: Pt reports overall benefit on ECT I spent minutes with the patient and/or on the patient floor today, greater than?50% of which was spent counseling/coordinating care. Reason for contiued inpatient stay Substantial Risk for: med/psych decompensation
[2022-02-09 18:00] VITALS: BP 110/62; PULSE 68; RESP 18; TEMP 37.3; O2SAT 96
[2022-02-09] MEDS: Ferrous Sulfate 324 MG TABLET.DR PO (20:32)
[2022-02-10 06:00] VITALS: BP 133/72; PULSE 64; RESP 18; TEMP 36.6; O2SAT 97
[2022-02-10] MEDS: amantadine HCL 100 MG CAPSULE PO ×2 (08:49→20:53)
[2022-02-10] MEDS: DULoxetine HCl 30 MG CAPSULE.DR PO (08:49)
[2022-02-10] MEDS: Sucralfate 1 GM TABLET PO ×3 (08:49→20:54)
[2022-02-10] MEDS: risperiDONE 1 MG TABLET PO ×2 (08:49→20:53)
--- NOTE | 2022-02-10 16:11 | HO.PSYCHPN ---
Subjective Subjective Date of Service: 02/10/22 Reason For Visit: unspecified bipolar and related d/o Subjective Notes: [place] Warning and Section 8 Interim History: Patient seen and discussed with team. Patient evaluated today and upon interview pt discusses ECT tomorrow, agrees there has been improvement in his depression, says he is just waiting to see what happens. Discussed continuing OP therapy upon discharge, possibly PHP. In the milieu, patient is safe and appropriate in behavior, more visible. Denies SI/SIB/HI upon inquiry. Denies irritability or assaultive ideation. Says he feels safe. Medication Compliance: Yes Side effects from medications: No Attending Groups: No Review of Systems Acute medical concerns: No Medical Review of Systems: unchanged Mental Status Exam Mental Status Exam Narrative: Patient Appearance:?Appropriate Patient Orientation:?Person, Place, Time and Situation Level of Consciousness:?Alert Patient Behavior:?Appropriate, Talkative, Cooperative and Good Eye Contact Mood Description:?Anxious and Apprehensive Affect Description:?Apprehensive Patient Cognition Impaired:?No Ability to Follow Directions:?Good Speech Pattern:?Spontaneous Speech Memory Description:?Episodic Impaired Hallucinations:?None Delusions:?Not Present Thought Process:?Intact Thought Content:?positive for Intact Depressive Symptoms:?Increased Anxiety Judgement:?Fair Diagnostics Vital Signs (24Hr): Vital Signs - 24 hr 02/10/22 19:43 02/11/22 06:00 02/11/22 06:07 Temperature 98 F 97.2 F 97.2 F Pulse Rate 72 78 78 Respiratory Rate 18 18 Blood Pressure 129/60 94/63 94/63 Pulse Oximetry 98 98 BMI result Body Mass Index 27.3 Labs Results: 01/28/22 11:08 02/04/22 09:55 Imaging Radiology Impressions: ITS Impressions Foot X-Ray 11/08/21 17:32 IMPRESSION: Tiny Achilles heel spur. Otherwise unremarkable appearance of the left foot. Cervical Spine X-Ray 11/22/21 14:50 IMPRESSION: No fracture or malalignment. Mild degenerative changes. Forearm X-Ray 11/22/21 14:50 IMPRESSION: No acute fractures or malalignment within the imaged left upper extremity. Hip X-Ray 11/22/21 14:50 IMPRESSION: No acute fractures or malalignment. Humerus X-Ray 11/22/21 14:50 IMPRESSION: No acute fractures or malalignment within the imaged left upper extremity. Shoulder X-Ray 11/22/21 14:50 IMPRESSION: No acute fractures or malalignment within the imaged left upper extremity. Head CT 12/22/21 16:42 IMPRESSION: No acute intracranial pathology. Hand X-Ray 12/25/21 08:38 IMPRESSION: No soft tissue foreign body seen. Brain MRI 12/25/21 09:20 IMPRESSION: No acute intracranial findings. No acute infarcts. There is mild chronic microangiopathy. No pathologic enhancement. Lumbar Puncture Fluoroscopy 12/27/21 14:00 IMPRESSION: Successful ultrasound-guided lumbar puncture performed without immediate complications. Barium Swallow X-Ray 01/10/22 08:29 IMPRESSION: Unremarkable barium swallow in upright and supine position. Occasional secondary and tertiary peristalsis seen in mid and distal esophagus with solid foot but no obstruction.. Medications Medications Current Medications Amantadine HCl (Amantadine Hcl 100 Mg Capsule) 100 mg PO BID [facility] Last Admin: 02/10/22 20:53 Dose: 100 mg Documented by: Duloxetine HCl (Duloxetine Hcl 30 Mg Capsule.) 30 mg PO DAILY [facility] Last Admin: 02/10/22 08:49 Dose: 30 mg Documented by: Ferrous Sulfate (Ferrous Sulfate 324 Mg Tablet.) 324 mg PO BEDTIME [facility] Last Admin: 02/10/22 20:54 Dose: 324 mg Documented by: Ibuprofen (Ibuprofen 800 Mg Tablet) 800 mg PO Q8H PRN PRN Reason: Pain, Mild (Pain Scale 1-3) Polyethylene Glycol (Polyethylene Glycol 3350 17 Gm Powd.Pack) 17 gm PO DAILY [facility] Last Admin: 02/10/22 08:49 Dose: Not Given Documented by: Psyllium Hydrophilic Mucilloid (Psyllium Seed 3.4 Gm Powd.Pack) 3.4 gm PO BEDTIME [facility] Last Admin: 02/10/22 20:54 Dose: 3.4 gm Documented by: Risperidone (Risperidone 1 Mg Tablet) 1 mg PO BID [facility] Last Admin: 02/10/22 20:53 Dose: 1 mg Documented by: Sucralfate (Sucralfate 1 Gm Tablet) 1 gm PO TID [facility] Last Admin: 02/10/22 20:54 Dose: 1 gm Documented by: Allergies Allergies Allergy/AdvReac Type Severity Reaction Status Date / Time No Known Allergies Allergy Unverified 11/07/21 21:23 Assessment & Plan Assessment & Plan (1) MDD (major depressive disorder), recurrent, severe, with psychosis: Status: Acute Code(s): F33.3 - Major depressive disorder, recurrent, severe with psychotic symptoms (2) Encephalopathy chronic: Status: Acute Code(s): G93.49 - Other encephalopathy Plan Remains depressed, anergic, unable to make a clear decision/choice. HCP activated, today, pt able to give SSN for court paperwork Continue Cymbalta, Risperdal, Sertraline Work with pt, , team to move forward with plan of care- prepare for ECT Pt completed barium swallow- results negative 01/11/22 Increase Risperdal to 2 mg bid 01/12/2022 Patient seen extensively reviewed diagnosis expectation for treatment with ECT risks benefits alternatives and lack of response to medication. Also reviewed patient's medical history that there is does not appear to be any other etiology to his condition. Again reviewed ECT procedure continues to have difficulty with decision making in taking information 01/14/22 Support, educate, prepare for HCP affirmation-ECT 01/16/22 Increase Cymbalta to 60 mg daily Discontinue Sertraline 01/17/22 Decrease Cymbalta to 30 mg daily-Gerry is planning on beginning to refuse meds, will taper back slowly should he choose tapering. 01/19/22: no change to the above 01/20/22: no change 01/21/22: Anticipating court validation of HCP with increase in fear, anxiety and resulting anger. States he plans to refuse medications-dose of Cymbalta decreased to prepare to manage SE, however, pt is compliant with regime at this time. 01/23/22: Continue current plan Offer support, answer questions, address concerns, attempt to manage pt's anxiety regarding treatment 01/24/22: Court hearing 01/25/22. Offer support to pt. Continue current medications-pt has not refused his regime he reports today. 01/25/22: Discussed with team-Initial planning with Gerry and his to address negative emotions surrounding treatment and outcome so we may help Gerry move toward his recovery in a positive frame of reference. 01/26 no changes to current tx regimen 01/27 no changes to current tx regimen 01/28/22: Medical clearance for tentative ECT on 01/30/22. 01/29/22: Prepare for ECT on 01/30/22. Today, pt continues to decline further education and support 01/30/22: Continue current plan of care 01/31/22: Continue current plan of care, appears improved. 02/01/22: ECT#2. Significant improvement, possible hypomania. Discussed with Dr. Inman. We will discontinue Cymbalta for a time to prevent promotion of [place] 02/02/2022: Continue current regimen and treatment and continuation of ECT. No changes were made today 02/03/2022: Continue current regimen and plans. Continue ECT. Safety checks were changed to every 15 minutes 02/04/22: Continue current plan. Monitor for hypomania. 02/05/22: No hypomania observed today. ECT 02/06/22. 02/06/22: Discharge planning with pt and family. 02/07/22: ECT 02/08. Continue current plan of care. 02/08/22: ECT scheduled for 3 sessions next week. Tentative discharge next Friday if plan remains on course and pt continues to improve. 02/09/22: Pt reports overall benefit on ECT 02/10/22: discussed PHP, OP therapy I spent minutes with the patient and/or on the patient floor today, greater than?50% of which was spent counseling/coordinating care. Reason for contiued inpatient stay Substantial Risk for: inability to function, rapid decompensation and med/psych decompensation
[2022-02-10 19:43] VITALS: BP 129/60; PULSE 72; TEMP 36.6
[2022-02-10] MEDS: Ferrous Sulfate 324 MG TABLET.DR PO (20:54)
[2022-02-11] VITALS (13 sets, daily range): BP systolic 94–154; BP diastolic 63–90; PULSE 56–95; RESP 12–18; TEMP 36.2–36.9; O2SAT 97–99
--- NOTE | 2022-02-11 14:36 | P.CONAN_ITS ---
[facility] Active Problems Active Problems: All Active Problems (Updated 01/29/22 @ 16:28 by Ethan Guidry MD) Constipation (Acute) Pre-op exam (Acute) Encephalopathy chronic (Acute) Paronychia of finger of left hand (Acute) MDD (major depressive disorder), recurrent, severe, with psychosis (Acute) Routine medical exam (Acute) Past Medical History Medical History Gram-negative bacteremia Functional capacity: independent ambulation Family History Family history of problems with anesthesia: No Surgical History History of Problems with Anesthesia: No Social History Social History Household Members: Spouse and Children Household Members Other:: and Three Children ages 11, 13, 15 Housing: House Do you presently have visiting nurse or other home services: No Patient Tobacco Use Status: Never used Tobacco Use of substances other than those prescribed or required for medical reasons: No Currently Displaying Signs/Symptoms of Drug Intoxication Withdrawal: No Have you been hit, kicked, punched, or otherwise hurt by someone within the past year? If so, by whom?: No Do you feel safe in your current relationship?: Yes Is there a partner from a previous relationship who is making you feel unsafe now?: No Are you made to feel afraid or neglected: No Advance Directives: No Advance Directives Information Provided: No Do you have thoughts of harming others: None Do you have a plan to hurt others: No Plan Recently lost weight without trying: No Eating poorly because of decreased appetite: No Nutrition Risks: No Nutritional Risk Poor oral hygiene: No service: No ([facility] [id number]'s) Sexual orientation: Straight/Heterosexual Meds Allergies Allergy/AdvReac Type Severity Reaction Status Date / Time No Known Allergies Allergy Unverified 11/07/21 21:23 Active Medications: Current Medications Amantadine HCl (Amantadine Hcl 100 Mg Capsule) 100 mg PO BID [facility] Last Admin: 02/10/22 20:53 Dose: 100 mg Documented by: Duloxetine HCl (Duloxetine Hcl 30 Mg Capsule.) 30 mg PO DAILY [facility] Last Admin: 02/10/22 08:49 Dose: 30 mg Documented by: Ferrous Sulfate (Ferrous Sulfate 324 Mg Tablet.) 324 mg PO BEDTIME [facility] Last Admin: 02/10/22 20:54 Dose: 324 mg Documented by: Ibuprofen (Ibuprofen 800 Mg Tablet) 800 mg PO Q8H PRN PRN Reason: Pain, Mild (Pain Scale 1-3) Polyethylene Glycol (Polyethylene Glycol 3350 17 Gm Powd.Pack) 17 gm PO DAILY [facility] Last Admin: 02/10/22 08:49 Dose: Not Given Documented by: Psyllium Hydrophilic Mucilloid (Psyllium Seed 3.4 Gm Powd.Pack) 3.4 gm PO BEDTIME [facility] Last Admin: 02/10/22 20:54 Dose: 3.4 gm Documented by: Risperidone (Risperidone 1 Mg Tablet) 1 mg PO BID [facility] Last Admin: 02/10/22 20:53 Dose: 1 mg Documented by: Sucralfate (Sucralfate 1 Gm Tablet) 1 gm PO TID [facility] Last Admin: 02/11/22 14:23 Dose: Not Given Documented by: Home Medications Medication Instructions Recorded Confirmed Last Taken Type acetaminophen 500 mg tablet 500 mg PO Q6-8H PRN 12/13/21 12/13/21 Unknown History (Acetaminophen Extra Strength) Exam Exam Date and Time: February 11, 2022 1436 Height,Weight and Vital Signs: Height 6 ft Weight 91.6 kg Last Vital Signs Temp 97.4 F 02/11/22 14:17 Pulse 56 02/11/22 14:17 Resp 16 02/11/22 14:17 BP 115/69 02/11/22 14:17 Pulse Ox 99 02/11/22 14:17 Pertinent Lab Results Pertinent Lab Results: Laboratory Tests 11/08/21 11/08/21 11/08/21 08:30 08:30 08:30 WBC RBC Hgb Hct MCV MCH MCHC RDW Plt Count MPV Immature Gran % (Auto) Neut % (Auto) Lymph % (Auto) [place] % (Auto) Eos % (Auto) Baso % (Auto) Lymph # (Auto) [place] # (Auto) Eos # (Auto) Baso # (Auto) Abs Immat Gran (auto) Absolute Neuts (auto) Absolute Nucleated RBC Nucleated RBC % (auto) ESR PT INR APTT D-Dimer High Sensitivty Sodium 142 Potassium 4.0 Chloride 103 Carbon Dioxide 32 H Anion Gap 11 L BUN 18 H Creatinine 1.13 Estim Creat Clear Calc TNP Estimated GFR > 60 Random Glucose Fasting Glucose 101 H Estimat Average Glucose 103 Hemoglobin A1c % 5.2 Uric Acid Calcium 9.5 Magnesium 2.4 Total Bilirubin 1.1 H AST 16 ALT 33 Alkaline Phosphatase 63 Ammonia Total Creatine Kinase C-Reactive Protein Total Protein 6.1 L Albumin 4.1 Ceruloplasmin Triglycerides 117 Cholesterol 142 LDL Cholesterol, Calc 91 HDL Cholesterol 28 Vitamin B12 619 Folate 7.0 TSH 1.84 Free T4 1.10 Total Testosterone Fr Testosterone Dialys Random Cortisol Urine Color Urine Appearance Urine pH Ur Specific [place] Urine Protein Urine Glucose (UA) Urine Ketones Urine Blood Urine Nitrite Ur Leukocyte Esterase CSF Tube Number CSF Volume CSF Appearance CSF Color CSF WBC CSF RBC CSF Lymphocytes CSF Appearance (b) CSF Glucose CSF Total Protein CSF Lyme IgG (Immblot) CSF Lyme IgG Bands Det CSF Lyme IgM (Immblot) CSF Lyme IgM Bands Det CSF C.neoform/gat PCR CSF CMV DNA (PCR) CSF Enterovirus (PCR) CSF E. coli K1 (PCR) CSF H. influenzae (PCR) CSF HSV I (PCR) CSF HSV II (PCR) CSF L.monocytogenes PCR CSF N. meningitidis PCR CSF Parechovirus (PCR) CSF S. agalactiae (PCR) CSF S. pneumoniae (PCR) CSF VZV (PCR) Ur Arsenic 24 Hour Urine Cadmium 24 Hour Serum Copper Ur Total Volume Ur Copper 24 Hr Urine Lead 24 Hour Urine Mercury 24 Hour Zinc Rheumatoid Factor TRENT Screen TRENT Titer TRENT Titer 2 TRENT Titer 3 TRENT Pattern TRENT Pattern 2 TRENT Pattern 3 Anti-ds DNA Titer (Crith) Anti-ds DNA (Crithidia) T.pallidum Ab (EIA) Lyme Screen IgG & IgM Lyme Progressive Test COVID-19 ([facility]) COVID-19 Clin Com HIV 1&2 Ab/P24 Ag 4thGn HHV-6 (PCR) Ref Lab Test Result 11/08/21 11/08/21 11/19/21 08:30 08:30 13:21 WBC 6.8 4.6 L RBC 4.71 4.53 L Hgb 13.7 L 13.0 L Hct 40.8 L 38.8 L MCV 86.6 85.7 MCH 29.1 28.7 MCHC 33.6 33.5 RDW 14.4 14.1 Plt Count 239 199 MPV 9.5 9.6 Immature Gran % (Auto) 0.1 0.2 Neut % (Auto) 64.8 73.1 H Lymph % (Auto) 21.7 16.7 L [place] % (Auto) 9.5 7.2 Eos % (Auto) 3.5 2.4 Baso % (Auto) 0.4 0.4 Lymph # (Auto) 1.5 0.8 L [place] # (Auto) 0.7 0.3 Eos # (Auto) 0.2 0.1 Baso # (Auto) 0.0 0.0 Abs Immat Gran (auto) 0.01 0.01 Absolute Neuts (auto) 4.4 3.3 Absolute Nucleated RBC 0.000 0.000 Nucleated RBC % (auto) 0.0 0.0 ESR PT INR APTT D-Dimer High Sensitivty 165 Sodium Potassium Chloride Carbon Dioxide Anion Gap BUN Creatinine Estim Creat Clear Calc Estimated GFR Random Glucose Fasting Glucose Estimat Average Glucose Hemoglobin A1c % Uric Acid Calcium Magnesium Total Bilirubin AST ALT Alkaline Phosphatase Ammonia Total Creatine Kinase C-Reactive Protein Total Protein Albumin Ceruloplasmin Triglycerides Cholesterol LDL Cholesterol, Calc HDL Cholesterol Vitamin B12 Folate TSH Free T4 Total Testosterone Fr Testosterone Dialys Random Cortisol Urine Color Urine Appearance Urine pH Ur Specific [place] Urine Protein Urine Glucose (UA) Urine Ketones Urine Blood Urine Nitrite Ur Leukocyte Esterase CSF Tube Number CSF Volume CSF Appearance CSF Color CSF WBC CSF RBC CSF Lymphocytes CSF Appearance (b) CSF Glucose CSF Total Protein CSF Lyme IgG (Immblot) CSF Lyme IgG Bands Det CSF Lyme IgM (Immblot) CSF Lyme IgM Bands Det CSF C.neoform/gat PCR CSF CMV DNA (PCR) CSF Enterovirus (PCR) CSF E. coli K1 (PCR) CSF H. influenzae (PCR) CSF HSV I (PCR) CSF HSV II (PCR) CSF L.monocytogenes PCR CSF N. meningitidis PCR CSF Parechovirus (PCR) CSF S. agalactiae (PCR) CSF S. pneumoniae (PCR) CSF VZV (PCR) Ur Arsenic 24 Hour Urine Cadmium 24 Hour Serum Copper Ur Total Volume Ur Copper 24 Hr Urine Lead 24 Hour Urine Mercury 24 Hour Zinc Rheumatoid Factor TRENT Screen TRENT Titer TRENT Titer 2 TRENT Titer 3 TRENT Pattern TRENT Pattern 2 TRENT Pattern 3 Anti-ds DNA Titer (Crith) Anti-ds DNA (Crithidia) T.pallidum Ab (EIA) Lyme Screen IgG & IgM Lyme Progressive Test COVID-19 ([facility]) COVID-19 Clin Com HIV 1&2 Ab/P24 Ag 4thGn HHV-6 (PCR) Ref Lab Test Result 0111/22/21 12/14/21 13:21 07:54 08:22 WBC 5.4 RBC 4.27 L Hgb 12.5 L Hct 37.2 L MCV 87.1 MCH 29.3 MCHC 33.6 RDW 14.6 Plt Count 223 MPV 8.6 L Immature Gran % (Auto) 0.4 Neut % (Auto) 73.7 H Lymph % (Auto) 15.1 L [place] % (Auto) 7.6 Eos % (Auto) 2.6 Baso % (Auto) 0.6 Lymph # (Auto) 0.8 L [place] # (Auto) 0.4 Eos # (Auto) 0.1 Baso # (Auto) 0.0 Abs Immat Gran (auto) 0.02 Absolute Neuts (auto) 4.0 Absolute Nucleated RBC 0.000 Nucleated RBC % (auto) 0.0 ESR PT INR APTT D-Dimer High Sensitivty Sodium 140 139 Potassium 4.1 3.7 Chloride 103 101 Carbon Dioxide 27 32 H Anion Gap 14 10 L BUN 13 18 H Creatinine 1.00 1.11 Estim Creat Clear Calc 89.4 80.5 Estimated GFR > 60 > 60 Random Glucose 91 91 Fasting Glucose Estimat Average Glucose Hemoglobin A1c % Uric Acid Calcium 9.3 9.0 Magnesium Total Bilirubin 0.6 AST 16 ALT 22 Alkaline Phosphatase 59 Ammonia Total Creatine Kinase C-Reactive Protein Total Protein 5.8 L Albumin 3.8 Ceruloplasmin Triglycerides Cholesterol LDL Cholesterol, Calc HDL Cholesterol Vitamin B12 Folate TSH Free T4 Total Testosterone Fr Testosterone Dialys Random Cortisol Urine Color Urine Appearance Urine pH Ur Specific [place] Urine Protein Urine Glucose (UA) Urine Ketones Urine Blood Urine Nitrite Ur Leukocyte Esterase CSF Tube Number CSF Volume CSF Appearance CSF Color CSF WBC CSF RBC CSF Lymphocytes CSF Appearance (b) CSF Glucose CSF Total Protein CSF Lyme IgG (Immblot) CSF Lyme IgG Bands Det CSF Lyme IgM (Immblot) CSF Lyme IgM Bands Det CSF C.neoform/gat PCR CSF CMV DNA (PCR) CSF Enterovirus (PCR) CSF E. coli K1 (PCR) CSF H. influenzae (PCR) CSF HSV I (PCR) CSF HSV II (PCR) CSF L.monocytogenes PCR CSF N. meningitidis PCR CSF Parechovirus (PCR) CSF S. agalactiae (PCR) CSF S. pneumoniae (PCR) CSF VZV (PCR) Ur Arsenic 24 Hour Urine Cadmium 24 Hour Serum Copper Ur Total Volume Ur Copper 24 Hr Urine Lead 24 Hour Urine Mercury 24 Hour Zinc Rheumatoid Factor TRENT Screen TRENT Titer TRENT Titer 2 TRENT Titer 3 TRENT Pattern TRENT Pattern 2 TRENT Pattern 3 Anti-ds DNA Titer (Crith) Anti-ds DNA (Crithidia) T.pallidum Ab (EIA) Lyme Screen IgG & IgM Lyme Progressive Test COVID-19 ([facility]) COVID-19 Clin Com HIV 1&2 Ab/P24 Ag 4thGn HHV-6 (PCR) Ref Lab Test Result 12/14/21 12/14/21 12/17/21 08:22 08:23 08:32 WBC RBC Hgb Hct MCV MCH MCHC RDW Plt Count MPV Immature Gran % (Auto) Neut % (Auto) Lymph % (Auto) [place] % (Auto) Eos % (Auto) Baso % (Auto) Lymph # (Auto) [place] # (Auto) Eos # (Auto) Baso # (Auto) Abs Immat Gran (auto) Absolute Neuts (auto) Absolute Nucleated RBC Nucleated RBC % (auto) ESR 9 PT INR APTT D-Dimer High Sensitivty Sodium 137 Potassium 4.5 D Chloride 101 Carbon Dioxide 29 Anion Gap 12 BUN 12 Creatinine 0.94 Estim Creat Clear Calc 104.9 Estimated GFR > 60 Random Glucose 93 Fasting Glucose Estimat Average Glucose Hemoglobin A1c % Uric Acid Calcium 9.2 Magnesium Total Bilirubin 0.4 AST 13 ALT 21 Alkaline Phosphatase 74 D Ammonia Total Creatine Kinase C-Reactive Protein Total Protein 5.9 L Albumin 3.8 Ceruloplasmin Triglycerides Cholesterol LDL Cholesterol, Calc HDL Cholesterol Vitamin B12 377 Folate 7.6 TSH 1.80 Free T4 Total Testosterone Fr Testosterone Dialys Random Cortisol Urine Color Urine Appearance Urine pH Ur Specific [place] Urine Protein Urine Glucose (UA) Urine Ketones Urine Blood Urine Nitrite Ur Leukocyte Esterase CSF Tube Number CSF Volume CSF Appearance CSF Color CSF WBC CSF RBC CSF Lymphocytes CSF Appearance (b) CSF Glucose CSF Total Protein CSF Lyme IgG (Immblot) CSF Lyme IgG Bands Det CSF Lyme IgM (Immblot) CSF Lyme IgM Bands Det CSF C.neoform/gat PCR CSF CMV DNA (PCR) CSF Enterovirus (PCR) CSF E. coli K1 (PCR) CSF H. influenzae (PCR) CSF HSV I (PCR) CSF HSV II (PCR) CSF L.monocytogenes PCR CSF N. meningitidis PCR CSF Parechovirus (PCR) CSF S. agalactiae (PCR) CSF S. pneumoniae (PCR) CSF VZV (PCR) Ur Arsenic 24 Hour Urine Cadmium 24 Hour Serum Copper Ur Total Volume Ur Copper 24 Hr Urine Lead 24 Hour Urine Mercury 24 Hour Zinc Rheumatoid Factor TRENT Screen TRENT Titer TRENT Titer 2 TRENT Titer 3 TRENT Pattern TRENT Pattern 2 TRENT Pattern 3 Anti-ds DNA Titer (Crith) Anti-ds DNA (Crithidia) T.pallidum Ab (EIA) Lyme Screen IgG & IgM Lyme Progressive Test COVID-19 ([facility]) COVID-19 Clin Com HIV 1&2 Ab/P24 Ag 4thGn HHV-6 (PCR) Ref Lab Test Result 12/17/21 12/17/21 12/17/21 08:32 08:32 08:32 WBC RBC Hgb Hct MCV MCH MCHC RDW Plt Count MPV Immature Gran % (Auto) Neut % (Auto) Lymph % (Auto) [place] % (Auto) Eos % (Auto) Baso % (Auto) Lymph # (Auto) [place] # (Auto) Eos # (Auto) Baso # (Auto) Abs Immat Gran (auto) Absolute Neuts (auto) Absolute Nucleated RBC Nucleated RBC % (auto) ESR PT INR APTT D-Dimer High Sensitivty Sodium Potassium Chloride Carbon Dioxide Anion Gap BUN Creatinine Estim Creat Clear Calc Estimated GFR Random Glucose Fasting Glucose Estimat Average Glucose Hemoglobin A1c % Uric Acid Calcium Magnesium Total Bilirubin AST ALT Alkaline Phosphatase Ammonia Total Creatine Kinase C-Reactive Protein 2.10 H Total Protein Albumin Ceruloplasmin Triglycerides Cholesterol LDL Cholesterol, Calc HDL Cholesterol Vitamin B12 Folate TSH Free T4 Total Testosterone Fr Testosterone Dialys Random Cortisol Urine Color Urine Appearance Urine pH Ur Specific [place] Urine Protein Urine Glucose (UA) Urine Ketones Urine Blood Urine Nitrite Ur Leukocyte Esterase CSF Tube Number CSF Volume CSF Appearance CSF Color CSF WBC CSF RBC CSF Lymphocytes CSF Appearance (b) CSF Glucose CSF Total Protein CSF Lyme IgG (Immblot) CSF Lyme IgG Bands Det CSF Lyme IgM (Immblot) CSF Lyme IgM Bands Det CSF C.neoform/gat PCR CSF CMV DNA (PCR) CSF Enterovirus (PCR) CSF E. coli K1 (PCR) CSF H. influenzae (PCR) CSF HSV I (PCR) CSF HSV II (PCR) CSF L.monocytogenes PCR CSF N. meningitidis PCR CSF Parechovirus (PCR) CSF S. agalactiae (PCR) CSF S. pneumoniae (PCR) CSF VZV (PCR) Ur Arsenic 24 Hour Urine Cadmium 24 Hour Serum Copper Ur Total Volume Ur Copper 24 Hr Urine Lead 24 Hour Urine Mercury 24 Hour Zinc Rheumatoid Factor TRENT Screen NEGATIVE TRENT Titer TNP TRENT Titer 2 TNP TRENT Titer 3 TNP TRENT Pattern TNP TRENT Pattern 2 TNP TRENT Pattern 3 TNP Anti-ds DNA Titer (Crith) Anti-ds DNA (Crithidia) T.pallidum Ab (EIA) Nonreactive Lyme Screen IgG & IgM Lyme Progressive Test COVID-19 ([facility]) COVID-19 Clin Com HIV 1&2 Ab/P24 Ag 4thGn HHV-6 (PCR) Ref Lab Test Result 12/17/21 12/17/21 12/22/21 08:32 08:32 14:57 WBC 6.8 RBC 4.29 L Hgb 12.6 L Hct 37.5 L MCV 87.4 MCH 29.4 MCHC 33.6 RDW 14.0 Plt Count 274 MPV 8.7 L Immature Gran % (Auto) 0.4 Neut % (Auto) 74.9 H Lymph % (Auto) 14.5 L [place] % (Auto) 8.5 Eos % (Auto) 1.3 Baso % (Auto) 0.4 Lymph # (Auto) 1.0 L [place] # (Auto) 0.6 Eos # (Auto) 0.1 Baso # (Auto) 0.0 Abs Immat Gran (auto) 0.03 Absolute Neuts (auto) 5.1 Absolute Nucleated RBC 0.000 Nucleated RBC % (auto) 0.0 ESR PT INR APTT D-Dimer High Sensitivty Sodium Potassium Chloride Carbon Dioxide Anion Gap BUN Creatinine Estim Creat Clear Calc Estimated GFR Random Glucose Fasting Glucose Estimat Average Glucose Hemoglobin A1c % Uric Acid Calcium Magnesium Total Bilirubin AST ALT Alkaline Phosphatase Ammonia Total Creatine Kinase C-Reactive Protein Total Protein Albumin Ceruloplasmin Triglycerides Cholesterol LDL Cholesterol, Calc HDL Cholesterol Vitamin B12 Folate TSH Free T4 Total Testosterone 474 Fr Testosterone Dialys 38.4 Random Cortisol Urine Color Urine Appearance Urine pH Ur Specific [place] Urine Protein Urine Glucose (UA) Urine Ketones Urine Blood Urine Nitrite Ur Leukocyte Esterase CSF Tube Number CSF Volume CSF Appearance CSF Color CSF WBC CSF RBC CSF Lymphocytes CSF Appearance (b) CSF Glucose CSF Total Protein CSF Lyme IgG (Immblot) CSF Lyme IgG Bands Det CSF Lyme IgM (Immblot) CSF Lyme IgM Bands Det CSF C.neoform/gat PCR CSF CMV DNA (PCR) CSF Enterovirus (PCR) CSF E. coli K1 (PCR) CSF H. influenzae (PCR) CSF HSV I (PCR) CSF HSV II (PCR) CSF L.monocytogenes PCR CSF N. meningitidis PCR CSF Parechovirus (PCR) CSF S. agalactiae (PCR) CSF S. pneumoniae (PCR) CSF VZV (PCR) Ur Arsenic 24 Hour Urine Cadmium 24 Hour Serum Copper Ur Total Volume Ur Copper 24 Hr Urine Lead 24 Hour Urine Mercury 24 Hour Zinc Rheumatoid Factor TRENT Screen TRENT Titer TRENT Titer 2 TRENT Titer 3 TRENT Pattern TRENT Pattern 2 TRENT Pattern 3 Anti-ds DNA Titer (Crith) Anti-ds DNA (Crithidia) T.pallidum Ab (EIA) Lyme Screen IgG & IgM Lyme Progressive Test COVID-19 ([facility]) COVID-19 Clin Com HIV 1&2 Ab/P24 Ag 4thGn Nonreactive HHV-6 (PCR) Ref Lab Test Result 12/22/21 12/22/21 12/25/21 14:57 18:18 08:08 WBC RBC Hgb Hct MCV MCH MCHC RDW Plt Count MPV Immature Gran % (Auto) Neut % (Auto) Lymph % (Auto) [place] % (Auto) Eos % (Auto) Baso % (Auto) Lymph # (Auto) [place] # (Auto) Eos # (Auto) Baso # (Auto) Abs Immat Gran (auto) Absolute Neuts (auto) Absolute Nucleated RBC Nucleated RBC % (auto) ESR PT INR APTT D-Dimer High Sensitivty Sodium 135 Potassium 4.0 Chloride 98 Carbon Dioxide 30 H Anion Gap 11 L BUN 14 Creatinine 0.98 Estim Creat Clear Calc 100.6 Estimated GFR > 60 Random Glucose 114 Fasting Glucose Estimat Average Glucose Hemoglobin A1c % Uric Acid 4.2 Calcium 9.4 Magnesium Total Bilirubin 0.4 AST 13 ALT 24 Alkaline Phosphatase 91 D Ammonia Total Creatine Kinase C-Reactive Protein Total Protein 6.1 L Albumin 4.1 Ceruloplasmin Triglycerides Cholesterol LDL Cholesterol, Calc HDL Cholesterol Vitamin B12 Folate TSH Free T4 Total Testosterone Fr Testosterone Dialys Random Cortisol Urine Color YELLOW Urine Appearance CLEAR Urine pH 7.0 Ur Specific [place] 1.015 Urine Protein NEG Urine Glucose (UA) NEG Urine Ketones NEG Urine Blood NEG Urine Nitrite NEG Ur Leukocyte Esterase NEG CSF Tube Number CSF Volume CSF Appearance CSF Color CSF WBC CSF RBC CSF Lymphocytes CSF Appearance (b) CSF Glucose CSF Total Protein CSF Lyme IgG (Immblot) CSF Lyme IgG Bands Det CSF Lyme IgM (Immblot) CSF Lyme IgM Bands Det CSF C.neoform/gat PCR CSF CMV DNA (PCR) CSF Enterovirus (PCR) CSF E. coli K1 (PCR) CSF H. influenzae (PCR) CSF HSV I (PCR) CSF HSV II (PCR) CSF L.monocytogenes PCR CSF N. meningitidis PCR CSF Parechovirus (PCR) CSF S. agalactiae (PCR) CSF S. pneumoniae (PCR) CSF VZV (PCR) Ur Arsenic 24 Hour Urine Cadmium 24 Hour Serum Copper Ur Total Volume Ur Copper 24 Hr Urine Lead 24 Hour Urine Mercury 24 Hour Zinc Rheumatoid Factor TRENT Screen TRENT Titer TRENT Titer 2 TRENT Titer 3 TRENT Pattern TRENT Pattern 2 TRENT Pattern 3 Anti-ds DNA Titer (Crith) Anti-ds DNA (Crithidia) T.pallidum Ab (EIA) Lyme Screen IgG & IgM Lyme Progressive Test COVID-19 ([facility]) COVID-19 Clin Com HIV 1&2 Ab/P24 Ag 4thGn HHV-6 (PCR) Ref Lab Test Result 12/27/21 12/27/21 12/27/21 08:00 08:00 08:11 WBC RBC Hgb Hct MCV MCH MCHC RDW Plt Count MPV Immature Gran % (Auto) Neut % (Auto) Lymph % (Auto) [place] % (Auto) Eos % (Auto) Baso % (Auto) Lymph # (Auto) [place] # (Auto) Eos # (Auto) Baso # (Auto) Abs Immat Gran (auto) Absolute Neuts (auto) Absolute Nucleated RBC Nucleated RBC % (auto) ESR PT 12.1 INR 1.1 APTT 38.5 H D-Dimer High Sensitivty Sodium Potassium Chloride Carbon Dioxide Anion Gap BUN Creatinine Estim Creat Clear Calc Estimated GFR Random Glucose Fasting Glucose Estimat Average Glucose Hemoglobin A1c % Uric Acid Calcium Magnesium Total Bilirubin AST ALT Alkaline Phosphatase Ammonia Total Creatine Kinase C-Reactive Protein Total Protein Albumin Ceruloplasmin Triglycerides Cholesterol LDL Cholesterol, Calc HDL Cholesterol Vitamin B12 Folate TSH Free T4 Total Testosterone Fr Testosterone Dialys Random Cortisol Urine Color Urine Appearance Urine pH Ur Specific [place] Urine Protein Urine Glucose (UA) Urine Ketones Urine Blood Urine Nitrite Ur Leukocyte Esterase CSF Tube Number CSF Volume CSF Appearance CSF Color CSF WBC CSF RBC CSF Lymphocytes CSF Appearance (b) CSF Glucose CSF Total Protein CSF Lyme IgG (Immblot) CSF Lyme IgG Bands Det CSF Lyme IgM (Immblot) CSF Lyme IgM Bands Det CSF C.neoform/gat PCR CSF CMV DNA (PCR) CSF Enterovirus (PCR) CSF E. coli K1 (PCR) CSF H. influenzae (PCR) CSF HSV I (PCR) CSF HSV II (PCR) CSF L.monocytogenes PCR CSF N. meningitidis PCR CSF Parechovirus (PCR) CSF S. agalactiae (PCR) CSF S. pneumoniae (PCR) CSF VZV (PCR) Ur Arsenic 24 Hour <10 Urine Cadmium 24 Hour <0.5 Serum Copper Ur Total Volume 1300 Ur Copper 24 Hr 9 L Urine Lead 24 Hour <10 Urine Mercury 24 Hour <4 Zinc Rheumatoid Factor TRENT Screen TRENT Titer TRENT Titer 2 TRENT Titer 3 TRENT Pattern TRENT Pattern 2 TRENT Pattern 3 Anti-ds DNA Titer (Crith) Anti-ds DNA (Crithidia) T.pallidum Ab (EIA) Lyme Screen IgG & IgM Lyme Progressive Test COVID-19 ([facility]) COVID-19 Clin Com HIV 1&2 Ab/P24 Ag 4thGn HHV-6 (PCR) Ref Lab Test Result 12/27/21 12/27/21 12/27/21 08:11 08:11 08:11 WBC RBC Hgb Hct MCV MCH MCHC RDW Plt Count 244 MPV Immature Gran % (Auto) Neut % (Auto) Lymph % (Auto) [place] % (Auto) Eos % (Auto) Baso % (Auto) Lymph # (Auto) [place] # (Auto) Eos # (Auto) Baso # (Auto) Abs Immat Gran (auto) Absolute Neuts (auto) Absolute Nucleated RBC Nucleated RBC % (auto) ESR 13 PT INR APTT D-Dimer High Sensitivty Sodium Potassium Chloride Carbon Dioxide Anion Gap BUN Creatinine Estim Creat Clear Calc Estimated GFR Random Glucose Fasting Glucose Estimat Average Glucose Hemoglobin A1c % Uric Acid Calcium Magnesium Total Bilirubin AST ALT Alkaline Phosphatase Ammonia Total Creatine Kinase 38 C-Reactive Protein Total Protein Albumin Ceruloplasmin Triglycerides Cholesterol LDL Cholesterol, Calc HDL Cholesterol Vitamin B12 Folate TSH Free T4 Total Testosterone Fr Testosterone Dialys Random Cortisol Urine Color Urine Appearance Urine pH Ur Specific [place] Urine Protein Urine Glucose (UA) Urine Ketones Urine Blood Urine Nitrite Ur Leukocyte Esterase CSF Tube Number CSF Volume CSF Appearance CSF Color CSF WBC CSF RBC CSF Lymphocytes CSF Appearance (b) CSF Glucose CSF Total Protein CSF Lyme IgG (Immblot) CSF Lyme IgG Bands Det CSF Lyme IgM (Immblot) CSF Lyme IgM Bands Det CSF C.neoform/gat PCR CSF CMV DNA (PCR) CSF Enterovirus (PCR) CSF E. coli K1 (PCR) CSF H. influenzae (PCR) CSF HSV I (PCR) CSF HSV II (PCR) CSF L.monocytogenes PCR CSF N. meningitidis PCR CSF Parechovirus (PCR) CSF S. agalactiae (PCR) CSF S. pneumoniae (PCR) CSF VZV (PCR) Ur Arsenic 24 Hour Urine Cadmium 24 Hour Serum Copper Ur Total Volume Ur Copper 24 Hr Urine Lead 24 Hour Urine Mercury 24 Hour Zinc Rheumatoid Factor < 15.0 TRENT Screen TRENT Titer TRENT Titer 2 TRENT Titer 3 TRENT Pattern TRENT Pattern 2 TRENT Pattern 3 Anti-ds DNA Titer (Crith) Anti-ds DNA (Crithidia) T.pallidum Ab (EIA) Lyme Screen IgG & IgM Lyme Progressive Test COVID-19 ([facility]) COVID-19 Clin Com HIV 1&2 Ab/P24 Ag 4thGn HHV-6 (PCR) Ref Lab Test Result 12/27/21 12/27/21 12/27/21 08:11 08:11 08:11 WBC RBC Hgb Hct MCV MCH MCHC RDW Plt Count MPV Immature Gran % (Auto) Neut % (Auto) Lymph % (Auto) [place] % (Auto) Eos % (Auto) Baso % (Auto) Lymph # (Auto) [place] # (Auto) Eos # (Auto) Baso # (Auto) Abs Immat Gran (auto) Absolute Neuts (auto) Absolute Nucleated RBC Nucleated RBC % (auto) ESR PT INR APTT D-Dimer High Sensitivty Sodium Potassium Chloride Carbon Dioxide Anion Gap BUN Creatinine Estim Creat Clear Calc Estimated GFR Random Glucose Fasting Glucose Estimat Average Glucose Hemoglobin A1c % Uric Acid Calcium Magnesium Total Bilirubin AST ALT Alkaline Phosphatase Ammonia Total Creatine Kinase C-Reactive Protein Total Protein Albumin Ceruloplasmin 34 Triglycerides Cholesterol LDL Cholesterol, Calc HDL Cholesterol Vitamin B12 Folate TSH Free T4 Total Testosterone Fr Testosterone Dialys Random Cortisol Urine Color Urine Appearance Urine pH Ur Specific [place] Urine Protein Urine Glucose (UA) Urine Ketones Urine Blood Urine Nitrite Ur Leukocyte Esterase CSF Tube Number CSF Volume CSF Appearance CSF Color CSF WBC CSF RBC CSF Lymphocytes CSF Appearance (b) CSF Glucose CSF Total Protein CSF Lyme IgG (Immblot) CSF Lyme IgG Bands Det CSF Lyme IgM (Immblot) CSF Lyme IgM Bands Det CSF C.neoform/gat PCR CSF CMV DNA (PCR) CSF Enterovirus (PCR) CSF E. coli K1 (PCR) CSF H. influenzae (PCR) CSF HSV I (PCR) CSF HSV II (PCR) CSF L.monocytogenes PCR CSF N. meningitidis PCR CSF Parechovirus (PCR) CSF S. agalactiae (PCR) CSF S. pneumoniae (PCR) CSF VZV (PCR) Ur Arsenic 24 Hour Urine Cadmium 24 Hour Serum Copper Ur Total Volume Ur Copper 24 Hr Urine Lead 24 Hour Urine Mercury 24 Hour Zinc Rheumatoid Factor TRENT Screen TRENT Titer TRENT Titer 2 TRENT Titer 3 TRENT Pattern TRENT Pattern 2 TRENT Pattern 3 Anti-ds DNA Titer (Crith) TNP Anti-ds DNA (Crithidia) Negative T.pallidum Ab (EIA) Lyme Screen IgG & IgM <0.90 Lyme Progressive Test TNP COVID-19 ([facility]) COVID-19 Clin Com HIV 1&2 Ab/P24 Ag 4thGn HHV-6 (PCR) Ref Lab Test Result 12/27/21 12/27/21 12/27/21 08:11 13:50 13:50 WBC RBC Hgb Hct MCV MCH MCHC RDW Plt Count MPV Immature Gran % (Auto) Neut % (Auto) Lymph % (Auto) [place] % (Auto) Eos % (Auto) Baso % (Auto) Lymph # (Auto) [place] # (Auto) Eos # (Auto) Baso # (Auto) Abs Immat Gran (auto) Absolute Neuts (auto) Absolute Nucleated RBC Nucleated RBC % (auto) ESR PT INR APTT D-Dimer High Sensitivty Sodium Potassium Chloride Carbon Dioxide Anion Gap BUN Creatinine Estim Creat Clear Calc Estimated GFR Random Glucose Fasting Glucose Estimat Average Glucose Hemoglobin A1c % Uric Acid Calcium Magnesium Total Bilirubin AST ALT Alkaline Phosphatase Ammonia Total Creatine Kinase C-Reactive Protein Total Protein Albumin Ceruloplasmin Triglycerides Cholesterol LDL Cholesterol, Calc HDL Cholesterol Vitamin B12 Folate TSH Free T4 Total Testosterone Fr Testosterone Dialys Random Cortisol Urine Color Urine Appearance Urine pH Ur Specific [place] Urine Protein Urine Glucose (UA) Urine Ketones Urine Blood Urine Nitrite Ur Leukocyte Esterase CSF Tube Number CSF Volume CSF Appearance CSF Color CSF WBC CSF RBC CSF Lymphocytes CSF Appearance (b) CSF Glucose CSF Total Protein CSF Lyme IgG (Immblot) CSF Lyme IgG Bands Det CSF Lyme IgM (Immblot) CSF Lyme IgM Bands Det CSF C.neoform/gat PCR Not Detected CSF CMV DNA (PCR) Not Detected CSF Enterovirus (PCR) Not Detected CSF E. coli K1 (PCR) Not Detected CSF H. influenzae (PCR) Not Detected CSF HSV I (PCR) Not Detected CSF HSV II (PCR) Not Detected CSF L.monocytogenes PCR Not Detected CSF N. meningitidis PCR Not Detected CSF Parechovirus (PCR) Not Detected CSF S. agalactiae (PCR) Not Detected CSF S. pneumoniae (PCR) Not Detected CSF VZV (PCR) Not Detected Ur Arsenic 24 Hour Urine Cadmium 24 Hour Serum Copper 154 Ur Total Volume Ur Copper 24 Hr Urine Lead 24 Hour Urine Mercury 24 Hour Zinc Rheumatoid Factor TRENT Screen TRENT Titer TRENT Titer 2 TRENT Titer 3 TRNET Pattern TRENT Pattern 2 TRENT Pattern 3 Anti-ds DNA Titer (Crith) Anti-ds DNA (Crithidia) T.pallidum Ab (EIA) Lyme Screen IgG & IgM Lyme Progressive Test COVID-19 ([facility]) COVID-19 Clin Com HIV 1&2 Ab/P24 Ag 4thGn HHV-6 (PCR) Not Detected Ref Lab Test Result See Note 12/27/21 12/27/21 12/27/21 13:50 13:50 13:50 WBC RBC Hgb Hct MCV MCH MCHC RDW Plt Count MPV Immature Gran % (Auto) Neut % (Auto) Lymph % (Auto) [place] % (Auto) Eos % (Auto) Baso % (Auto) Lymph # (Auto) [place] # (Auto) Eos # (Auto) Baso # (Auto) Abs Immat Gran (auto) Absolute Neuts (auto) Absolute Nucleated RBC Nucleated RBC % (auto) ESR PT INR APTT D-Dimer High Sensitivty Sodium Potassium Chloride Carbon Dioxide Anion Gap BUN Creatinine Estim Creat Clear Calc Estimated GFR Random Glucose Fasting Glucose Estimat Average Glucose Hemoglobin A1c % Uric Acid Calcium Magnesium Total Bilirubin AST ALT Alkaline Phosphatase Ammonia Total Creatine Kinase C-Reactive Protein Total Protein Albumin Ceruloplasmin Triglycerides Cholesterol LDL Cholesterol, Calc HDL Cholesterol Vitamin B12 Folate TSH Free T4 Total Testosterone Fr Testosterone Dialys Random Cortisol Urine Color Urine Appearance Urine pH Ur Specific [place] Urine Protein Urine Glucose (UA) Urine Ketones Urine Blood Urine Nitrite Ur Leukocyte Esterase CSF Tube Number 1 4 CSF Volume 4.0 CSF Appearance CLEAR CSF Color COLORLESS CSF WBC 1 CSF RBC 0 CSF Lymphocytes 100 CSF Appearance (b) Clear, Colorless CSF Glucose 57 CSF Total Protein 39.8 CSF Lyme IgG (Immblot) NO BANDS DETECTED CSF Lyme IgG Bands Det TNP CSF Lyme IgM (Immblot) NO BANDS DETECTED CSF Lyme IgM Bands Det TNP CSF C.neoform/gat PCR CSF CMV DNA (PCR) CSF Enterovirus (PCR) CSF E. coli K1 (PCR) CSF H. influenzae (PCR) CSF HSV I (PCR) CSF HSV II (PCR) CSF L.monocytogenes PCR CSF N. meningitidis PCR CSF Parechovirus (PCR) CSF S. agalactiae (PCR) CSF S. pneumoniae (PCR) CSF VZV (PCR) Ur Arsenic 24 Hour Urine Cadmium 24 Hour Serum Copper Ur Total Volume Ur Copper 24 Hr Urine Lead 24 Hour Urine Mercury 24 Hour Zinc Rheumatoid Factor TRENT Screen TRENT Titer TRENT Titer 2 TRENT Titer 3 TRENT Pattern TRENT Pattern 2 TRENT Pattern 3 Anti-ds DNA Titer (Crith) Anti-ds DNA (Crithidia) T.pallidum Ab (EIA) Lyme Screen IgG & IgM Lyme Progressive Test COVID-19 ([facility]) COVID-19 Clin Com HIV 1&2 Ab/P24 Ag 4thGn HHV-6 (PCR) Ref Lab Test Result 12/29/21 12/29/21 01/04/22 07:18 07:18 08:12 WBC RBC Hgb Hct MCV MCH MCHC RDW Plt Count MPV Immature Gran % (Auto) Neut % (Auto) Lymph % (Auto) [place] % (Auto) Eos % (Auto) Baso % (Auto) Lymph # (Auto) [place] # (Auto) Eos # (Auto) Baso # (Auto) Abs Immat Gran (auto) Absolute Neuts (auto) Absolute Nucleated RBC Nucleated RBC % (auto) ESR PT INR APTT D-Dimer High Sensitivty Sodium Potassium Chloride Carbon Dioxide Anion Gap BUN Creatinine Estim Creat Clear Calc Estimated GFR Random Glucose Fasting Glucose Estimat Average Glucose Hemoglobin A1c % Uric Acid Calcium Magnesium Total Bilirubin AST ALT Alkaline Phosphatase Ammonia 26 Total Creatine Kinase C-Reactive Protein Total Protein Albumin 3.7 Ceruloplasmin Triglycerides Cholesterol LDL Cholesterol, Calc HDL Cholesterol Vitamin B12 Folate TSH Free T4 Total Testosterone Fr Testosterone Dialys Random Cortisol 18.3 Urine Color Urine Appearance Urine pH Ur Specific [place] Urine Protein Urine Glucose (UA) Urine Ketones Urine Blood Urine Nitrite Ur Leukocyte Esterase CSF Tube Number CSF Volume CSF Appearance CSF Color CSF WBC CSF RBC CSF Lymphocytes CSF Appearance (b) CSF Glucose CSF Total Protein CSF Lyme IgG (Immblot) CSF Lyme IgG Bands Det CSF Lyme IgM (Immblot) CSF Lyme IgM Bands Det CSF C.neoform/gat PCR CSF CMV DNA (PCR) CSF Enterovirus (PCR) CSF E. coli K1 (PCR) CSF H. influenzae (PCR) CSF HSV I (PCR) CSF HSV II (PCR) CSF L.monocytogenes PCR CSF N. meningitidis PCR CSF Parechovirus (PCR) CSF S. agalactiae (PCR) CSF S. pneumoniae (PCR) CSF VZV (PCR) Ur Arsenic 24 Hour Urine Cadmium 24 Hour Serum Copper Ur Total Volume Ur Copper 24 Hr Urine Lead 24 Hour Urine Mercury 24 Hour Zinc Rheumatoid Factor TRENT Screen TRENT Titer TRENT Titer 2 TRENT Titer 3 TRENT Pattern TRENT Pattern 2 TRENT Pattern 3 Anti-ds DNA Titer (Crith) Anti-ds DNA (Crithidia) T.pallidum Ab (EIA) Lyme Screen IgG & IgM Lyme Progressive Test COVID-19 ([facility]) COVID-19 Clin Com HIV 1&2 Ab/P24 Ag 4thGn HHV-6 (PCR) Ref Lab Test Result 01/04/22 01/28/22 01/28/22 08:12 11:08 11:08 WBC 4.0 L RBC 4.84 Hgb 13.6 L Hct 41.8 L MCV 86.4 MCH 28.1 MCHC 32.5 RDW 14.0 Plt Count 170 D MPV 9.6 Immature Gran % (Auto) 0.5 H Neut % (Auto) 67.6 Lymph % (Auto) 22.6 [place] % (Auto) 7.0 Eos % (Auto) 1.8 Baso % (Auto) 0.5 Lymph # (Auto) 0.9 L [place] # (Auto) 0.3 Eos # (Auto) 0.1 Baso # (Auto) 0.0 Abs Immat Gran (auto) 0.02 Absolute Neuts (auto) 2.7 Absolute Nucleated RBC 0.000 Nucleated RBC % (auto) 0.0 ESR PT INR APTT D-Dimer High Sensitivty Sodium 143 Potassium 4.2 Chloride 107 Carbon Dioxide 29 Anion Gap 11 L BUN 18 H Creatinine 1.12 Estim Creat Clear Calc 79.8 Estimated GFR > 60 Random Glucose 99 Fasting Glucose Estimat Average Glucose Hemoglobin A1c % Uric Acid Calcium 9.3 Magnesium Total Bilirubin 0.3 AST 8 ALT 7 Alkaline Phosphatase 69 D Ammonia Total Creatine Kinase C-Reactive Protein Total Protein 5.9 L Albumin 3.8 Ceruloplasmin Triglycerides Cholesterol LDL Cholesterol, Calc HDL Cholesterol Vitamin B12 Folate TSH Free T4 Total Testosterone Fr Testosterone Dialys Random Cortisol Urine Color Urine Appearance Urine pH Ur Specific [place] Urine Protein Urine Glucose (UA) Urine Ketones Urine Blood Urine Nitrite Ur Leukocyte Esterase CSF Tube Number CSF Volume CSF Appearance CSF Color CSF WBC CSF RBC CSF Lymphocytes CSF Appearance (b) CSF Glucose CSF Total Protein CSF Lyme IgG (Immblot) CSF Lyme IgG Bands Det CSF Lyme IgM (Immblot) CSF Lyme IgM Bands Det CSF C.neoform/gat PCR CSF CMV DNA (PCR) CSF Enterovirus (PCR) CSF E. coli K1 (PCR) CSF H. influenzae (PCR) CSF HSV I (PCR) CSF HSV II (PCR) CSF L.monocytogenes PCR CSF N. meningitidis PCR CSF Parechovirus (PCR) CSF S. agalactiae (PCR) CSF S. pneumoniae (PCR) CSF VZV (PCR) Ur Arsenic 24 Hour Urine Cadmium 24 Hour Serum Copper Ur Total Volume Ur Copper 24 Hr Urine Lead 24 Hour Urine Mercury 24 Hour Zinc 64 Rheumatoid Factor TRENT Screen TRENT Titer TRENT Titer 2 TRENT Titer 3 TRENT Pattern TRENT Pattern 2 TRENT Pattern 3 Anti-ds DNA Titer (Crith) Anti-ds DNA (Crithidia) T.pallidum Ab (EIA) Lyme Screen IgG & IgM Lyme Progressive Test COVID-19 ([facility]) COVID-19 Clin Com HIV 1&2 Ab/P24 Ag 4thGn HHV-6 (PCR) Ref Lab Test Result 01/29/22 01/29/22 01/29/22 08:08 08:08 09:08 WBC RBC Hgb Hct MCV MCH MCHC RDW Plt Count MPV Immature Gran % (Auto) Neut % (Auto) Lymph % (Auto) [place] % (Auto) Eos % (Auto) Baso % (Auto) Lymph # (Auto) [place] # (Auto) Eos # (Auto) Baso # (Auto) Abs Immat Gran (auto) Absolute Neuts (auto) Absolute Nucleated RBC Nucleated RBC % (auto) ESR PT INR APTT D-Dimer High Sensitivty Sodium Potassium Chloride Carbon Dioxide Anion Gap BUN Creatinine Estim Creat Clear Calc Estimated GFR Random Glucose Fasting Glucose Estimat Average Glucose 97 Hemoglobin A1c % 5.0 Uric Acid Calcium Magnesium Total Bilirubin AST ALT Alkaline Phosphatase Ammonia Total Creatine Kinase C-Reactive Protein Total Protein Albumin Ceruloplasmin Triglycerides 116 Cholesterol 222 D LDL Cholesterol, Calc 170 HDL Cholesterol 29 Vitamin B12 Folate TSH Free T4 Total Testosterone Fr Testosterone Dialys Random Cortisol Urine Color Urine Appearance Urine pH Ur Specific [place] Urine Protein Urine Glucose (UA) Urine Ketones Urine Blood Urine Nitrite Ur Leukocyte Esterase CSF Tube Number CSF Volume CSF Appearance CSF Color CSF WBC CSF RBC CSF Lymphocytes CSF Appearance (b) CSF Glucose CSF Total Protein CSF Lyme IgG (Immblot) CSF Lyme IgG Bands Det CSF Lyme IgM (Immblot) CSF Lyme IgM Bands Det CSF C.neoform/gat PCR CSF CMV DNA (PCR) CSF Enterovirus (PCR) CSF E. coli K1 (PCR) CSF H. influenzae (PCR) CSF HSV I (PCR) CSF HSV II (PCR) CSF L.monocytogenes PCR CSF N. meningitidis PCR CSF Parechovirus (PCR) CSF S. agalactiae (PCR) CSF S. pneumoniae (PCR) CSF VZV (PCR) Ur Arsenic 24 Hour Urine Cadmium 24 Hour Serum Copper Ur Total Volume Ur Copper 24 Hr Urine Lead 24 Hour Urine Mercury 24 Hour Zinc Rheumatoid Factor TRENT Screen TRENT Titer TRENT Titer 2 TRENT Titer 3 TRENT Pattern TRENT Pattern 2 TRENT Pattern 3 Anti-ds DNA Titer (Crith) Anti-ds DNA (Crithidia) T.pallidum Ab (EIA) Lyme Screen IgG & IgM Lyme Progressive Test COVID-19 ([facility]) Negative COVID-19 Clin Com See Note HIV 1&2 Ab/P24 Ag 4thGn HHV-6 (PCR) Ref Lab Test Result 02/04/22 09:55 WBC RBC Hgb Hct MCV MCH MCHC RDW Plt Count MPV Immature Gran % (Auto) Neut % (Auto) Lymph % (Auto) [place] % (Auto) Eos % (Auto) Baso % (Auto) Lymph # (Auto) [place] # (Auto) Eos # (Auto) Baso # (Auto) Abs Immat Gran (auto) Absolute Neuts (auto) Absolute Nucleated RBC Nucleated RBC % (auto) ESR PT INR APTT D-Dimer High Sensitivty Sodium 140 Potassium 4.0 Chloride 104 Carbon Dioxide 30 H Anion Gap 10 L BUN 14 Creatinine 1.04 Estim Creat Clear Calc 86.0 Estimated GFR > 60 Random Glucose 101 Fasting Glucose Estimat Average Glucose Hemoglobin A1c % Uric Acid Calcium 9.0 Magnesium 2.1 Total Bilirubin 0.6 AST 7 ALT 9 Alkaline Phosphatase 61 Ammonia Total Creatine Kinase C-Reactive Protein Total Protein 5.3 L Albumin 3.6 Ceruloplasmin Triglycerides Cholesterol LDL Cholesterol, Calc HDL Cholesterol Vitamin B12 Folate TSH Free T4 Total Testosterone Fr Testosterone Dialys Random Cortisol Urine Color Urine Appearance Urine pH Ur Specific [place] Urine Protein Urine Glucose (UA) Urine Ketones Urine Blood Urine Nitrite Ur Leukocyte Esterase CSF Tube Number CSF Volume CSF Appearance CSF Color CSF WBC CSF RBC CSF Lymphocytes CSF Appearance (b) CSF Glucose CSF Total Protein CSF Lyme IgG (Immblot) CSF Lyme IgG Bands Det CSF Lyme IgM (Immblot) CSF Lyme IgM Bands Det CSF C.neoform/gat PCR CSF CMV DNA (PCR) CSF Enterovirus (PCR) CSF E. coli K1 (PCR) CSF H. influenzae (PCR) CSF HSV I (PCR) CSF HSV II (PCR) CSF L.monocytogenes PCR CSF N. meningitidis PCR CSF Parechovirus (PCR) CSF S. agalactiae (PCR) CSF S. pneumoniae (PCR) CSF VZV (PCR) Ur Arsenic 24 Hour Urine Cadmium 24 Hour Serum Copper Ur Total Volume Ur Copper 24 Hr Urine Lead 24 Hour Urine Mercury 24 Hour Zinc Rheumatoid Factor TRENT Screen TRENT Titer TRENT Titer 2 TRENT Titer 3 TRENT Pattern RTENT Pattern 2 TRENT Pattern 3 Anti-ds DNA Titer (Crith) Anti-ds DNA (Crithidia) T.pallidum Ab (EIA) Lyme Screen IgG & IgM Lyme Progressive Test COVID-19 ([facility]) COVID-19 Clin Com HIV 1&2 Ab/P24 Ag 4thGn HHV-6 (PCR) Ref Lab Test Result Airway Mallampati Class: II TM Dist: >3cm Neck ROM: Full Loose/Missing/Broken Teeth: No Heart: RRR Lungs: CTA Assessment and Plan Assessment Anesthesia Assessment: Anesthesia Plan Discussed and Chart Reviewed Final Anesthetic Review Family History of Problems with Anesthesia: No History of Problems with Anesthesia: No NPO: Yes ASA Class: II Final Preanesthetic Review: Meds/Allgs Chart Reviewed, Consent Obtained/Reviewed and Anes Risks/Benef Reviewed Patient Risk: Low Procedure Risk: Intermediate Anesthetic Plan Anesthetic Plan: GA Disposition: Standard PACU
--- NOTE | 2022-02-11 14:58 | MHC.SHP ---
Pre-Procedural Eval Section A Date of Service: 02/11/22 The patient is an INPATIENT: Yes Changes since office visit: No Cold of Flu in the past 2 weeks, No New Medical Problems, No Changes in Medication and No Patient answered all questions The History & Physical has been completed within 30 days and I have reviewed it.: Yes Section B Chief Complaint: unspecified bipolar and related d/o Allergies: Allergies Allergy/AdvReac Type Severity Reaction Status Date / Time No Known Allergies Allergy Unverified 11/07/21 21:23 Plan I have reviewed the history and physical and performed a pertinent physical examination on my patient. No changes have occurred unless specified.
--- NOTE | 2022-02-11 14:58 | HO.ECTPROC ---
ECT Procedure Note Diagnosis/Treatment Date of Service: 02/11/22 Diagnosis: Major Depressive Disorder Previous ECT Date: 02/08/22 Current Treatment Number: 6 Treatment: Series Interval Clinical Notes: The patient reported improvement of dysphoria, no side effects with previous ECT. ECT Settings Device: THYMATRON DGx Electrode Placement: Right Unilateral Program/Pulse Width: 0.50 Energy Percent: 50 Seizure Duration By EEG (in seconds): 0 (BUT SEIZURE ACTIVITY UNTIL 71S) By Motor Observation (in seconds): 31 Medications Administration General Anesthetic: Etomidate (16) Muscle Relaxant: Succinylcholine (100) Ancillary Medications Analgesics: Torodol - Pre ECT Anti-emetics: Zofran - Pre ECT Miscillaneous Medications: Propofol Airway Management Airway Management: Bag Mask Ventilation Treatment Recommendations No Changes Recommended: No change Pt Tolerated Procedure w/o Issue: Yes
[2022-02-11] MEDS: DULoxetine HCl 30 MG CAPSULE.DR PO (17:35)
--- NOTE | 2022-02-11 17:38 | P.PNPSI_ITS ---
Subjective Subjective Date of Service: 02/11/22 Reason For Visit: unspecified bipolar and related d/o Subjective Notes: Conditional Voluntary (activated/validated HCP) Healthcare Proxy: Yes Guardianship: No Interim History: Gerry was scheduled later in the day for ECT. He spent time watching TV in the group room, talking with staff and peers. He is visable and interactive. He is thinking about discharge tentatively for the end of this week. Appears well engaged in the milieu. Medication Compliance: Yes Side effects from medications: No Attending Groups: Intermittent Review of Systems Acute medical concerns: No Medical Review of Systems: unchanged Review of Systems Psychiatric: Reports no additional psychiatric complaints and Reports anxiety Mental Status Exam Mental Status Exam Narrative: Patient Appearance:?Appropriate Patient Orientation:?Person, Place, Time and Situation Level of Consciousness:?Alert Patient Behavior:?Appropriate, Talkative, Cooperative and Good Eye Contact Mood Description:?Anxious and Apprehensive Affect Description:?Apprehensive Patient Cognition Impaired:?No Ability to Follow Directions:?Good Speech Pattern:?Spontaneous Speech Memory Description:?Episodic Impaired Hallucinations:?None Delusions:?Not Present Thought Process:?Intact Thought Content:?positive for Intact Depressive Symptoms:?Increased Anxiety Judgement:?Fair Diagnostics Vital Signs (24Hr): Vital Signs - 24 hr 02/10/22 19:43 02/11/22 06:00 02/11/22 06:07 Temperature 98 F 97.2 F 97.2 F Pulse Rate 72 78 78 Respiratory Rate 18 18 Blood Pressure 129/60 94/63 94/63 Pulse Oximetry 98 98 02/11/22 14:17 02/11/22 15:20 02/11/22 15:25 Temperature 97.4 F 98.5 F Pulse Rate 56 57 71 Respiratory Rate 16 18 16 Blood Pressure 115/69 130/64 112/71 Pulse Oximetry 99 99 97 02/11/22 15:30 02/11/22 15:35 02/11/22 17:15 Temperature 97.2 F Pulse Rate 80 77 88 Respiratory Rate 17 18 16 Blood Pressure 135/90 H 116/72 113/79 Pulse Oximetry 98 98 98 BMI result Body Mass Index 27.3 Labs Results: 01/28/22 11:08 02/04/22 09:55 Imaging Radiology Impressions: ITS Impressions Foot X-Ray 11/08/21 17:32 IMPRESSION: Tiny Achilles heel spur. Otherwise unremarkable appearance of the left foot. Cervical Spine X-Ray 11/22/21 14:50 IMPRESSION: No fracture or malalignment. Mild degenerative changes. Forearm X-Ray 11/22/21 14:50 IMPRESSION: No acute fractures or malalignment within the imaged left upper extremity. Hip X-Ray 11/22/21 14:50 IMPRESSION: No acute fractures or malalignment. Humerus X-Ray 11/22/21 14:50 IMPRESSION: No acute fractures or malalignment within the imaged left upper extremity. Shoulder X-Ray 11/22/21 14:50 IMPRESSION: No acute fractures or malalignment within the imaged left upper extremity. Head CT 12/22/21 16:42 IMPRESSION: No acute intracranial pathology. Hand X-Ray 12/25/21 08:38 IMPRESSION: No soft tissue foreign body seen. Brain MRI 12/25/21 09:20 IMPRESSION: No acute intracranial findings. No acute infarcts. There is mild chronic microangiopathy. No pathologic enhancement. Lumbar Puncture Fluoroscopy 12/27/21 14:00 IMPRESSION: Successful ultrasound-guided lumbar puncture performed without immediate complications. Barium Swallow X-Ray 01/10/22 08:29 IMPRESSION: Unremarkable barium swallow in upright and supine position. Occasional secondary and tertiary peristalsis seen in mid and distal esophagus with solid foot but no obstruction.. Medications Medications Current Medications Amantadine HCl (Amantadine Hcl 100 Mg Capsule) 100 mg PO BID REPLACED BY [facility] Last Admin: 02/11/22 17:28 Dose: Not Given Documented by: Duloxetine HCl (Duloxetine Hcl 30 Mg Capsule.) 30 mg PO DAILY REPLACED BY [facility] Last Admin: 02/11/22 17:35 Dose: 30 mg Documented by: Ferrous Sulfate (Ferrous Sulfate 324 Mg Tablet.) 324 mg PO BEDTIME REPLACED BY [facility] Last Admin: 02/10/22 20:54 Dose: 324 mg Documented by: Ibuprofen (Ibuprofen 800 Mg Tablet) 800 mg PO Q8H PRN PRN Reason: Pain, Mild (Pain Scale 1-3) Polyethylene Glycol (Polyethylene Glycol 3350 17 Gm Powd.Pack) 17 gm PO DAILY REPLACED BY [facility] Last Admin: 02/11/22 17:29 Dose: Not Given Documented by: Psyllium Hydrophilic Mucilloid (Psyllium Seed 3.4 Gm Powd.Pack) 3.4 gm PO BEDTIME REPLACED BY [facility] Last Admin: 02/10/22 20:54 Dose: 3.4 gm Documented by: Risperidone (Risperidone 1 Mg Tablet) 1 mg PO BID REPLACED BY [facility] Last Admin: 02/11/22 17:29 Dose: Not Given Documented by: Sucralfate (Sucralfate 1 Gm Tablet) 1 gm PO TID REPLACED BY [facility] Last Admin: 02/11/22 17:29 Dose: Not Given Documented by: Allergies Allergies Allergy/AdvReac Type Severity Reaction Status Date / Time No Known Allergies Allergy Unverified 11/07/21 21:23 Assessment & Plan Assessment & Plan (1) MDD (major depressive disorder), recurrent, severe, with psychosis: Status: Acute Code(s): F33.3 - Major depressive disorder, recurrent, severe with psychotic symptoms (2) Encephalopathy chronic: Status: Acute Code(s): G93.49 - Other encephalopathy Plan Remains depressed, anergic, unable to make a clear decision/choice. HCP activated, today, pt able to give SSN for court paperwork Continue Cymbalta, Risperdal, Sertraline Work with pt, , team to move forward with plan of care- prepare for ECT Pt completed barium swallow- results negative 01/11/22 Increase Risperdal to 2 mg bid 01/12/2022 Patient seen extensively reviewed diagnosis expectation for treatment with ECT risks benefits alternatives and lack of response to medication. Also reviewed patient's medical history that there is does not appear to be any other etiology to his condition. Again reviewed ECT procedure continues to have difficulty with decision making in taking information 01/14/22 Support, educate, prepare for HCP affirmation-ECT 01/16/22 Increase Cymbalta to 60 mg daily Discontinue Sertraline 01/17/22 Decrease Cymbalta to 30 mg daily-Gerry is planning on beginning to refuse meds, will taper back slowly should he choose tapering. 01/19/22: no change to the above 01/20/22: no change 01/21/22: Anticipating court validation of HCP with increase in fear, anxiety and resulting anger. States he plans to refuse medications-dose of Cymbalta decreased to prepare to manage SE, however, pt is compliant with regime at this time. 01/23/22: Continue current plan Offer support, answer questions, address concerns, attempt to manage pt's anxiety regarding treatment 01/24/22: Court hearing 01/25/22. Offer support to pt. Continue current medications-pt has not refused his regime he reports today. 01/25/22: Discussed with team-Initial planning with Gerry and his to address negative emotions surrounding treatment and outcome so we may help Gerry move toward his recovery in a positive frame of reference. 01/26 no changes to current tx regimen 01/27 no changes to current tx regimen 01/28/22: Medical clearance for tentative ECT on 01/30/22. 01/29/22: Prepare for ECT on 01/30/22. Today, pt continues to decline further ed ucation and support 01/30/22: Continue current plan of care 01/31/22: Continue current plan of care, appears improved. 02/01/22: ECT#2. Significant improvement, possible hypomania. Discussed with Dr. Inman. We will discontinue Cymbalta for a time to prevent promotion of [place] 02/02/2022: Continue current regimen and treatment and continuation of ECT. No changes were made today 02/03/2022: Continue current regimen and plans. Continue ECT. Safety checks were changed to every 15 minutes 02/04/22: Continue current plan. Monitor for hypomania. 02/05/22: No hypomania observed today. ECT 02/06/22. 02/06/22: Discharge planning with pt and family. 02/07/22: ECT 02/08. Continue current plan of care. 02/08/22: ECT scheduled for 3 sessions next week. Tentative discharge next Friday if plan remains on course and pt continues to improve. 02/09/22: Pt reports overall benefit on ECT 02/10/22: discussed PHP, OP therapy 02/11/22: Continue current plan of care I spent minutes with the patient and/or on the patient floor today, greater than?50% of which was spent counseling/coordinating care. Patient educated on: therapeutic strategies Informed Consent: understands Reason for contiued inpatient stay Substantial Risk for: inability to function and rapid decompensation
[2022-02-11] MEDS: Ferrous Sulfate 324 MG TABLET.DR PO (20:19)
[2022-02-11] MEDS: risperiDONE 1 MG TABLET PO (20:19)
[2022-02-11] MEDS: Sucralfate 1 GM TABLET PO (20:19)
[2022-02-11] MEDS: amantadine HCL 100 MG CAPSULE PO (20:19)
--- NOTE | 2022-02-11 22:42 | TAR.NOTE ---
pt denies any complaits after ECT , alert & oriented x3, duloxetine administered and other morning meds help per provider request apart
[2022-02-12 06:00] VITALS: BP 118/76; PULSE 73; RESP 18; TEMP 36.5; O2SAT 99
[2022-02-12] MEDS: risperiDONE 1 MG TABLET PO ×2 (08:10→20:54)
[2022-02-12] MEDS: DULoxetine HCl 30 MG CAPSULE.DR PO (08:10)
[2022-02-12] MEDS: Sucralfate 1 GM TABLET PO ×3 (08:10→20:53)
[2022-02-12] MEDS: amantadine HCL 100 MG CAPSULE PO ×2 (08:10→20:53)
[2022-02-12] MEDS: polyethylene glycoL 3350 17 GM POWD.PACK PO (08:50)
--- NOTE | 2022-02-12 18:30 | P.PNPSI_ITS ---
Subjective Subjective Date of Service: 02/12/22 Reason For Visit: unspecified bipolar and related d/o Medical Problems Affecting Mental Status: No Interim History: Can I drink on these medicines? I think I want pizza and beer when I get home. Discussed parameters of alcohol consumption on medications. Discussed anticipation of discharge-several things he wants to do-reminded he has been in bed essentially since Oct and that weekend warrior mentality may suraj d to musculoskeletal injury-encouraged to take it slow, ease back into his activities. He discussed helping his son with landscaping over the weekend. Looking forward to discharge and to continuing his progress. Medication Compliance: Yes Side effects from medications: No Attending Groups: Yes Review of Systems Acute medical concerns: No Medical Review of Systems: unchanged Review of Systems Psychiatric: Reports no additional psychiatric complaints and Reports anxiety Mental Status Exam Mental Status Exam Narrative: Patient Appearance:?Appropriate Patient Orientation:?Person, Place, Time and Situation Level of Consciousness:?Alert Patient Behavior:?Appropriate, Talkative, Cooperative and Good Eye Contact Mood Description:?Anxious and Apprehensive Affect Description:?Apprehensive Patient Cognition Impaired:?No Ability to Follow Directions:?Good Speech Pattern:?Spontaneous Speech Memory Description:?Episodic Impaired Hallucinations:?None Delusions:?Not Present Thought Process:?Intact Thought Content:?positive for Intact Depressive Symptoms:?Increased Anxiety Judgement:?Fair Diagnostics Vital Signs (24Hr): Vital Signs - 24 hr 02/12/22 06:00 Temperature 97.7 F Pulse Rate 73 Respiratory Rate 18 Blood Pressure 118/76 Pulse Oximetry 99 BMI result Body Mass Index 27.3 Labs Results: 01/28/22 11:08 02/04/22 09:55 Imaging Radiology Impressions: ITS Impressions Foot X-Ray 11/08/21 17:32 IMPRESSION: Tiny Achilles heel spur. Otherwise unremarkable appearance of the left foot. Cervical Spine X-Ray 11/22/21 14:50 IMPRESSION: No fracture or malalignment. Mild degenerative changes. Forearm X-Ray 11/22/21 14:50 IMPRESSION: No acute fractures or malalignment within the imaged left upper extremity. Hip X-Ray 11/22/21 14:50 IMPRESSION: No acute fractures or malalignment. Humerus X-Ray 11/22/21 14:50 IMPRESSION: No acute fractures or malalignment within the imaged left upper extremity. Shoulder X-Ray 11/22/21 14:50 IMPRESSION: No acute fractures or malalignment within the imaged left upper extremity. Head CT 12/22/21 16:42 IMPRESSION: No acute intracranial pathology. Hand X-Ray 12/25/21 08:38 IMPRESSION: No soft tissue foreign body seen. Brain MRI 12/25/21 09:20 IMPRESSION: No acute intracranial findings. No acute infarcts. There is mild chronic microangiopathy. No pathologic enhancement. Lumbar Puncture Fluoroscopy 12/27/21 14:00 IMPRESSION: Successful ultrasound-guided lumbar puncture performed without immediate complications. Barium Swallow X-Ray 01/10/22 08:29 IMPRESSION: Unremarkable barium swallow in upright and supine position. Occasional secondary and tertiary peristalsis seen in mid and distal esophagus with solid foot but no obstruction.. Medications Medications Current Medications Amantadine HCl (Amantadine Hcl 100 Mg Capsule) 100 mg PO BID [facility] Last Admin: 02/12/22 08:10 Dose: 100 mg Documented by: Duloxetine HCl (Duloxetine Hcl 30 Mg Capsule.) 30 mg PO DAILY [facility] Last Admin: 02/12/22 08:10 Dose: 30 mg Documented by: Ferrous Sulfate (Ferrous Sulfate 324 Mg Tablet.) 324 mg PO BEDTIME [facility] Last Admin: 02/11/22 20:19 Dose: 324 mg Documented by: Ibuprofen (Ibuprofen 800 Mg Tablet) 800 mg PO Q8H PRN PRN Reason: Pain, Mild (Pain Scale 1-3) Polyethylene Glycol (Polyethylene Glycol 3350 17 Gm Powd.Pack) 17 gm PO DAILY [facility] Last Admin: 02/12/22 08:50 Dose: 17 gm Documented by: Psyllium Hydrophilic Mucilloid (Psyllium Seed 3.4 Gm Powd.Pack) 3.4 gm PO BEDTIME [facility] Last Admin: 02/11/22 21:01 Dose: Not Given Documented by: Risperidone (Risperidone 1 Mg Tablet) 1 mg PO BID [facility] Last Admin: 02/12/22 08:10 Dose: 1 mg Documented by: Sucralfate (Sucralfate 1 Gm Tablet) 1 gm PO TID [facility] Last Admin: 02/12/22 14:13 Dose: 1 gm Documented by: Allergies Allergies Allergy/AdvReac Type Severity Reaction Status Date / Time No Known Allergies Allergy Unverified 11/07/21 21:23 Assessment & Plan Assessment & Plan (1) MDD (major depressive disorder), recurrent, severe, with psychosis: Status: Acute Code(s): F33.3 - Major depressive disorder, recurrent, severe with psychotic symptoms (2) Encephalopathy chronic: Status: Acute Code(s): G93.49 - Other encephalopathy Plan Remains depressed, anergic, unable to make a clear decision/choice. HCP activated, today, pt able to give SSN for court paperwork Continue Cymbalta, Risperdal, Sertraline Work with pt, , team to move forward with plan of care- prepare for ECT Pt completed barium swallow- results negative 01/11/22 Increase Risperdal to 2 mg bid 01/12/2022 Patient seen extensively reviewed diagnosis expectation for treatment with ECT risks benefits alternatives and lack of response to medication. Also reviewed patient's medical history that there is does not appear to be any other etiology to his condition. Again reviewed ECT procedure continues to have difficulty with decision making in taking information 01/14/22 Support, educate, prepare for HCP affirmation-ECT 01/16/22 Increase Cymbalta to 60 mg daily Discontinue Sertraline 01/17/22 Decrease Cymbalta to 30 mg daily-Gerry is planning on beginning to refuse meds, will taper back slowly should he choose tapering. 01/19/22: no change to the above 01/20/22: no change 01/21/22: Anticipating court validation of HCP with increase in fear, anxiety and resulting anger. States he plans to refuse medications-dose of Cymbalta decreased to prepare to manage SE, however, pt is compliant with regime at this time. 01/23/22: Continue current plan Offer support, answer questions, address concerns, attempt to manage pt's anxiety regarding treatment 01/24/22: Court hearing 01/25/22. Offer support to pt. Continue current medications-pt has not refused his regime he reports today. 01/25/22: Discussed with team-Initial planning with Gerry and his to address negative emotions surrounding treatment and outcome so we may help Gerry move toward his recovery in a positive frame of reference. 01/26 no changes to current tx regimen 01/27 no changes to current tx regimen 01/28/22: Medical clearance for tentative ECT on 01/30/22. 01/29/22: Prepare for ECT on 01/30/22. Today, pt continues to decline further education and support 01/30/22: Continue current plan of care 01/31/22: Continue current plan of care, appears improved. 02/01/22: ECT#2. Significant improvement, possible hypomania. Discussed with Dr. Inman. We will discontinue Cymbalta for a time to prevent promotion of [place] 02/02/2022: Continue current regimen and treatment and continuation of ECT. No changes were made today 02/03/2022: Continue current regimen and plans. Continue ECT. Safety checks were changed to every 15 minutes 02/04/22: Continue current plan. Monitor for hypomania. 02/05/22: No hypomania observed today. ECT 02/06/22. 02/06/22: Discharge planning with pt and family. 02/07/22: ECT 02/08. Continue current plan of care. 02/08/22: ECT scheduled for 3 sessions next week. Tentative discharge next Friday if plan remains on course and pt continues to improve. 02/09/22: Pt reports overall benefit on ECT 02/10/22: discussed PHP, OP therapy 02/11/22: Continue current plan of care 02/12/22: Continue current plan of care I spent minutes with the patient and/or on the patient floor today, greater than?50% of which was spent counseling/coordinating care. Patient educated on: medication risk/benefits, substance abuse, therapeutic strategies and other Informed Consent: understands Reason for contiued inpatient stay Substantial Risk for: inability to function and rapid decompensation
[2022-02-12 19:30] VITALS: BP 97/58; PULSE 82; TEMP 36.8
[2022-02-12] MEDS: Ferrous Sulfate 324 MG TABLET.DR PO (20:53)
[2022-02-13] VITALS (12 sets, daily range): BP systolic 97–126; BP diastolic 56–81; PULSE 60–87; RESP 16–22; TEMP 36.3–36.9; O2SAT 95–99
--- NOTE | 2022-02-13 07:30 | HO.ANESPROP2 ---
[facility] Active Problems Active Problems: All Active Problems (Updated 01/29/22 @ 16:28 by Ethan Guidry MD) Constipation (Acute) Pre-op exam (Acute) Encephalopathy chronic (Acute) Paronychia of finger of left hand (Acute) MDD (major depressive disorder), recurrent, severe, with psychosis (Acute) Routine medical exam (Acute) Past Medical History Medical History Gram-negative bacteremia Functional capacity: independent ambulation Family History Family history of problems with anesthesia: No Surgical History History of Problems with Anesthesia: No Social History Social History Household Members: Spouse and Children Household Members Other:: and Three Children ages 11, 13, 15 Housing: House Do you presently have visiting nurse or other home services: No Patient Tobacco Use Status: Never used Tobacco Use of substances other than those prescribed or required for medical reasons: No Currently Displaying Signs/Symptoms of Drug Intoxication Withdrawal: No Have you been hit, kicked, punched, or otherwise hurt by someone within the past year? If so, by whom?: No Do you feel safe in your current relationship?: Yes Is there a partner from a previous relationship who is making you feel unsafe now?: No Are you made to feel afraid or neglected: No Advance Directives: No Advance Directives Information Provided: No Do you have thoughts of harming others: None Do you have a plan to hurt others: No Plan Recently lost weight without trying: No Eating poorly because of decreased appetite: No Nutrition Risks: No Nutritional Risk Poor oral hygiene: No service: No ([employer] [id number]'s) Sexual orientation: Straight/Heterosexual Meds Allergies Allergy/AdvReac Type Severity Reaction Status Date / Time No Known Allergies Allergy Unverified 11/07/21 21:23 Active Medications: Current Medications Amantadine HCl (Amantadine Hcl 100 Mg Capsule) 100 mg PO BID [facility] Last Admin: 02/12/22 20:53 Dose: 100 mg Documented by: Duloxetine HCl (Duloxetine Hcl 30 Mg Capsule.) 30 mg PO DAILY [facility] Last Admin: 02/12/22 08:10 Dose: 30 mg Documented by: Ferrous Sulfate (Ferrous Sulfate 324 Mg Tablet.) 324 mg PO BEDTIME [facility] Last Admin: 02/12/22 20:53 Dose: 324 mg Documented by: Lactated Ringer's (Lr) 1,000 mls @ 50 mls/hr IVCONT .Q20H [facility] Ibuprofen (Ibuprofen 800 Mg Tablet) 800 mg PO Q8H PRN PRN Reason: Pain, Mild (Pain Scale 1-3) Polyethylene Glycol (Polyethylene Glycol 3350 17 Gm Powd.Pack) 17 gm PO DAILY [facility] Last Admin: 02/12/22 08:50 Dose: 17 gm Documented by: Psyllium Hydrophilic Mucilloid (Psyllium Seed 3.4 Gm Powd.Pack) 3.4 gm PO BEDTIME [facility] Last Admin: 02/12/22 20:55 Dose: Not Given Documented by: Risperidone (Risperidone 1 Mg Tablet) 1 mg PO BID [facility] Last Admin: 02/12/22 20:54 Dose: 1 mg Documented by: Sucralfate (Sucralfate 1 Gm Tablet) 1 gm PO TID [facility] Last Admin: 02/12/22 20:53 Dose: 1 gm Documented by: Home Medications Medication Instructions Recorded Confirmed Last Taken Type acetaminophen 500 mg tablet 500 mg PO Q6-8H PRN 12/13/21 12/13/21 Unknown History (Acetaminophen Extra Strength) Exam Exam Date and Time: February 13, 2022 0730 Height,Weight and Vital Signs: Height 6 ft Weight 91.6 kg Last Vital Signs Temp 98.2 F 02/13/22 07:02 Pulse 66 02/13/22 07:02 Resp 16 02/13/22 07:02 BP 116/77 02/13/22 07:02 Pulse Ox 96 02/13/22 07:02 Pertinent Lab Results Pertinent Lab Results: Laboratory Tests 11/08/21 11/08/21 11/08/21 08:30 08:30 08:30 WBC RBC Hgb Hct MCV MCH MCHC RDW Plt Count MPV Immature Gran % (Auto) Neut % (Auto) Lymph % (Auto) [place] % (Auto) Eos % (Auto) Baso % (Auto) Lymph # (Auto) [place] # (Auto) Eos # (Auto) Baso # (Auto) Abs Immat Gran (auto) Absolute Neuts (auto) Absolute Nucleated RBC Nucleated RBC % (auto) ESR PT INR APTT D-Dimer High Sensitivty Sodium 142 Potassium 4.0 Chloride 103 Carbon Dioxide 32 H Anion Gap 11 L BUN 18 H Creatinine 1.13 Estim Creat Clear Calc TNP Estimated GFR > 60 Random Glucose Fasting Glucose 101 H Estimat Average Glucose 103 Hemoglobin A1c % 5.2 Uric Acid Calcium 9.5 Magnesium 2.4 Total Bilirubin 1.1 H AST 16 ALT 33 Alkaline Phosphatase 63 Ammonia Total Creatine Kinase C-Reactive Protein Total Protein 6.1 L Albumin 4.1 Ceruloplasmin Triglycerides 117 Cholesterol 142 LDL Cholesterol, Calc 91 HDL Cholesterol 28 Vitamin B12 619 Folate 7.0 TSH 1.84 Free T4 1.10 Total Testosterone Fr Testosterone Dialys Random Cortisol Urine Color Urine Appearance Urine pH Ur Specific [place] Urine Protein Urine Glucose (UA) Urine Ketones Urine Blood Urine Nitrite Ur Leukocyte Esterase CSF Tube Number CSF Volume CSF Appearance CSF Color CSF WBC CSF RBC CSF Lymphocytes CSF Appearance (b) CSF Glucose CSF Total Protein CSF Lyme IgG (Immblot) CSF Lyme IgG Bands Det CSF Lyme IgM (Immblot) CSF Lyme IgM Bands Det CSF C.neoform/gat PCR CSF CMV DNA (PCR) CSF Enterovirus (PCR) CSF E. coli K1 (PCR) CSF H. influenzae (PCR) CSF HSV I (PCR) CSF HSV II (PCR) CSF L.monocytogenes PCR CSF N. meningitidis PCR CSF Parechovirus (PCR) CSF S. agalactiae (PCR) CSF S. pneumoniae (PCR) CSF VZV (PCR) Ur Arsenic 24 Hour Urine Cadmium 24 Hour Serum Copper Ur Total Volume Ur Copper 24 Hr Urine Lead 24 Hour Urine Mercury 24 Hour Zinc Rheumatoid Factor TRENT Screen TRENT Titer TRENT Titer 2 TRENT Titer 3 TRENT Pattern TRENT Pattern 2 TRENT Pattern 3 Anti-ds DNA Titer (Crith) Anti-ds DNA (Crithidia) T.pallidum Ab (EIA) Lyme Screen IgG & IgM Lyme Progressive Test COVID-19 ([facility]) COVID-19 Clin Com HIV 1&2 Ab/P24 Ag 4thGn HHV-6 (PCR) Ref Lab Test Result 11/08/21 11/08/21 11/19/21 08:30 08:30 13:21 WBC 6.8 4.6 L RBC 4.71 4.53 L Hgb 13.7 L 13.0 L Hct 40.8 L 38.8 L MCV 86.6 85.7 MCH 29.1 28.7 MCHC 33.6 33.5 RDW 14.4 14.1 Plt Count 239 199 MPV 9.5 9.6 Immature Gran % (Auto) 0.1 0.2 Neut % (Auto) 64.8 73.1 H Lymph % (Auto) 21.7 16.7 L [place] % (Auto) 9.5 7.2 Eos % (Auto) 3.5 2.4 Baso % (Auto) 0.4 0.4 Lymph # (Auto) 1.5 0.8 L [place] # (Auto) 0.7 0.3 Eos # (Auto) 0.2 0.1 Baso # (Auto) 0.0 0.0 Abs Immat Gran (auto) 0.01 0.01 Absolute Neuts (auto) 4.4 3.3 Absolute Nucleated RBC 0.000 0.000 Nucleated RBC % (auto) 0.0 0.0 ESR PT INR APTT D-Dimer High Sensitivty 165 Sodium Potassium Chloride Carbon Dioxide Anion Gap BUN Creatinine Estim Creat Clear Calc Estimated GFR Random Glucose Fasting Glucose Estimat Average Glucose Hemoglobin A1c % Uric Acid Calcium Magnesium Total Bilirubin AST ALT Alkaline Phosphatase Ammonia Total Creatine Kinase C-Reactive Protein Total Protein Albumin Ceruloplasmin Triglycerides Cholesterol LDL Cholesterol, Calc HDL Cholesterol Vitamin B12 Folate TSH Free T4 Total Testosterone Fr Testosterone Dialys Random Cortisol Urine Color Urine Appearance Urine pH Ur Specific [place] Urine Protein Urine Glucose (UA) Urine Ketones Urine Blood Urine Nitrite Ur Leukocyte Esterase CSF Tube Number CSF Volume CSF Appearance CSF Color CSF WBC CSF RBC CSF Lymphocytes CSF Appearance (b) CSF Glucose CSF Total Protein CSF Lyme IgG (Immblot) CSF Lyme IgG Bands Det CSF Lyme IgM (Immblot) CSF Lyme IgM Bands Det CSF C.neoform/gat PCR CSF CMV DNA (PCR) CSF Enterovirus (PCR) CSF E. coli K1 (PCR) CSF H. influenzae (PCR) CSF HSV I (PCR) CSF HSV II (PCR) CSF L.monocytogenes PCR CSF N. meningitidis PCR CSF Parechovirus (PCR) CSF S. agalactiae (PCR) CSF S. pneumoniae (PCR) CSF VZV (PCR) Ur Arsenic 24 Hour Urine Cadmium 24 Hour Serum Copper Ur Total Volume Ur Copper 24 Hr Urine Lead 24 Hour Urine Mercury 24 Hour Zinc Rheumatoid Factor TRENT Screen TRENT Titer TRENT Titer 2 TRENT Titer 3 TRENT Pattern TRENT Pattern 2 TRENT Pattern 3 Anti-ds DNA Titer (Crith) Anti-ds DNA (Crithidia) T.pallidum Ab (EIA) Lyme Screen IgG & IgM Lyme Progressive Test COVID-19 ([facility]) COVID-19 Clin Com HIV 1&2 Ab/P24 Ag 4thGn HHV-6 (PCR) Ref Lab Test Result 11/19/21 11/22/21 12/14/21 13:21 07:54 08:22 WBC 5.4 RBC 4.27 L Hgb 12.5 L Hct 37.2 L MCV 87.1 MCH 29.3 MCHC 33.6 RDW 14.6 Plt Count 223 MPV 8.6 L Immature Gran % (Auto) 0.4 Neut % (Auto) 73.7 H Lymph % (Auto) 15.1 L [place] % (Auto) 7.6 Eos % (Auto) 2.6 Baso % (Auto) 0.6 Lymph # (Auto) 0.8 L [place] # (Auto) 0.4 Eos # (Auto) 0.1 Baso # (Auto) 0.0 Abs Immat Gran (auto) 0.02 Absolute Neuts (auto) 4.0 Absolute Nucleated RBC 0.000 Nucleated RBC % (auto) 0.0 ESR PT INR APTT D-Dimer High Sensitivty Sodium 140 139 Potassium 4.1 3.7 Chloride 103 101 Carbon Dioxide 27 32 H Anion Gap 14 10 L BUN 13 18 H Creatinine 1.00 1.11 Estim Creat Clear Calc 89.4 80.5 Estimated GFR > 60 > 60 Random Glucose 91 91 Fasting Glucose Estimat Average Glucose Hemoglobin A1c % Uric Acid Calcium 9.3 9.0 Magnesium Total Bilirubin 0.6 AST 16 ALT 22 Alkaline Phosphatase 59 Ammonia Total Creatine Kinase C-Reactive Protein Total Protein 5.8 L Albumin 3.8 Ceruloplasmin Triglycerides Cholesterol LDL Cholesterol, Calc HDL Cholesterol Vitamin B12 Folate TSH Free T4 Total Testosterone Fr Testosterone Dialys Random Cortisol Urine Color Urine Appearance Urine pH Ur Specific [place] Urine Protein Urine Glucose (UA) Urine Ketones Urine Blood Urine Nitrite Ur Leukocyte Esterase CSF Tube Number CSF Volume CSF Appearance CSF Color CSF WBC CSF RBC CSF Lymphocytes CSF Appearance (b) CSF Glucose CSF Total Protein CSF Lyme IgG (Immblot) CSF Lyme IgG Bands Det CSF Lyme IgM (Immblot) CSF Lyme IgM Bands Det CSF C.neoform/gat PCR CSF CMV DNA (PCR) CSF Enterovirus (PCR) CSF E. coli K1 (PCR) CSF H. influenzae (PCR) CSF HSV I (PCR) CSF HSV II (PCR) CSF L.monocytogenes PCR CSF N. meningitidis PCR CSF Parechovirus (PCR) CSF S. agalactiae (PCR) CSF S. pneumoniae (PCR) CSF VZV (PCR) Ur Arsenic 24 Hour Urine Cadmium 24 Hour Serum Copper Ur Total Volume Ur Copper 24 Hr Urine Lead 24 Hour Urine Mercury 24 Hour Zinc Rheumatoid Factor TRENT Screen TRENT Titer TRENT Titer 2 TRENT Titer 3 TRENT Pattern TRENT Pattern 2 TRENT Pattern 3 Anti-ds DNA Titer (Crith) Anti-ds DNA (Crithidia) T.pallidum Ab (EIA) Lyme Screen IgG & IgM Lyme Progressive Test COVID-19 ([facility]) COVID-19 Clin Com HIV 1&2 Ab/P24 Ag 4thGn HHV-6 (PCR) Ref Lab Test Result 12/14/21 12/14/21 12/17/21 08:22 08:23 08:32 WBC RBC Hgb Hct MCV MCH MCHC RDW Plt Count MPV Immature Gran % (Auto) Neut % (Auto) Lymph % (Auto) [place] % (Auto) Eos % (Auto) Baso % (Auto) Lymph # (Auto) [place] # (Auto) Eos # (Auto) Baso # (Auto) Abs Immat Gran (auto) Absolute Neuts (auto) Absolute Nucleated RBC Nucleated RBC % (auto) ESR 9 PT INR APTT D-Dimer High Sensitivty Sodium 137 Potassium 4.5 D Chloride 101 Carbon Dioxide 29 Anion Gap 12 BUN 12 Creatinine 0.94 Estim Creat Clear Calc 104.9 Estimated GFR > 60 Random Glucose 93 Fasting Glucose Estimat Average Glucose Hemoglobin A1c % Uric Acid Calcium 9.2 Magnesium Total Bilirubin 0.4 AST 13 ALT 21 Alkaline Phosphatase 74 D Ammonia Total Creatine Kinase C-Reactive Protein Total Protein 5.9 L Albumin 3.8 Ceruloplasmin Triglycerides Cholesterol LDL Cholesterol, Calc HDL Cholesterol Vitamin B12 377 Folate 7.6 TSH 1.80 Free T4 Total Testosterone Fr Testosterone Dialys Random Cortisol Urine Color Urine Appearance Urine pH Ur Specific [place] Urine Protein Urine Glucose (UA) Urine Ketones Urine Blood Urine Nitrite Ur Leukocyte Esterase CSF Tube Number CSF Volume CSF Appearance CSF Color CSF WBC CSF RBC CSF Lymphocytes CSF Appearance (b) CSF Glucose CSF Total Protein CSF Lyme IgG (Immblot) CSF Lyme IgG Bands Det CSF Lyme IgM (Immblot) CSF Lyme IgM Bands Det CSF C.neoform/gat PCR CSF CMV DNA (PCR) CSF Enterovirus (PCR) CSF E. coli K1 (PCR) CSF H. influenzae (PCR) CSF HSV I (PCR) CSF HSV II (PCR) CSF L.monocytogenes PCR CSF N. meningitidis PCR CSF Parechovirus (PCR) CSF S. agalactiae (PCR) CSF S. pneumoniae (PCR) CSF VZV (PCR) Ur Arsenic 24 Hour Urine Cadmium 24 Hour Serum Copper Ur Total Volume Ur Copper 24 Hr Urine Lead 24 Hour Urine Mercury 24 Hour Zinc Rheumatoid Factor TRENT Screen TRENT Titer TRENT Titer 2 TRENT Titer 3 TRENT Pattern TRENT Pattern 2 TRENT Pattern 3 Anti-ds DNA Titer (Crith) Anti-ds DNA (Crithidia) T.pallidum Ab (EIA) Lyme Screen IgG & IgM Lyme Progressive Test COVID-19 ([facility]) COVID-19 Clin Com HIV 1&2 Ab/P24 Ag 4thGn HHV-6 (PCR) Ref Lab Test Result 12/17/21 12/17/21 12/17/21 08:32 08:32 08:32 WBC RBC Hgb Hct MCV MCH MCHC RDW Plt Count MPV Immature Gran % (Auto) Neut % (Auto) Lymph % (Auto) [place] % (Auto) Eos % (Auto) Baso % (Auto) Lymph # (Auto) [place] # (Auto) Eos # (Auto) Baso # (Auto) Abs Immat Gran (auto) Absolute Neuts (auto) Absolute Nucleated RBC Nucleated RBC % (auto) ESR PT INR APTT D-Dimer High Sensitivty Sodium Potassium Chloride Carbon Dioxide Anion Gap BUN Creatinine Estim Creat Clear Calc Estimated GFR Random Glucose Fasting Glucose Estimat Average Glucose Hemoglobin A1c % Uric Acid Calcium Magnesium Total Bilirubin AST ALT Alkaline Phosphatase Ammonia Total Creatine Kinase C-Reactive Protein 2.10 H Total Protein Albumin Ceruloplasmin Triglycerides Cholesterol LDL Cholesterol, Calc HDL Cholesterol Vitamin B12 Folate TSH Free T4 Total Testosterone Fr Testosterone Dialys Random Cortisol Urine Color Urine Appearance Urine pH Ur Specific [place] Urine Protein Urine Glucose (UA) Urine Ketones Urine Blood Urine Nitrite Ur Leukocyte Esterase CSF Tube Number CSF Volume CSF Appearance CSF Color CSF WBC CSF RBC CSF Lymphocytes CSF Appearance (b) CSF Glucose CSF Total Protein CSF Lyme IgG (Immblot) CSF Lyme IgG Bands Det CSF Lyme IgM (Immblot) CSF Lyme IgM Bands Det CSF C.neoform/gat PCR CSF CMV DNA (PCR) CSF Enterovirus (PCR) CSF E. coli K1 (PCR) CSF H. influenzae (PCR) CSF HSV I (PCR) CSF HSV II (PCR) CSF L.monocytogenes PCR CSF N. meningitidis PCR CSF Parechovirus (PCR) CSF S. agalactiae (PCR) CSF S. pneumoniae (PCR) CSF VZV (PCR) Ur Arsenic 24 Hour Urine Cadmium 24 Hour Serum Copper Ur Total Volume Ur Copper 24 Hr Urine Lead 24 Hour Urine Mercury 24 Hour Zinc Rheumatoid Factor TRENT Screen NEGATIVE TRENT Titer TNP TRENT Titer 2 TNP TRENT Titer 3 TNP TRENT Pattern TNP TRENT Pattern 2 TNP TRENT Pattern 3 TNP Anti-ds DNA Titer (Crith) Anti-ds DNA (Crithidia) T.pallidum Ab (EIA) Nonreactive Lyme Screen IgG & IgM Lyme Progressive Test COVID-19 ([facility]) COVID-19 Clin Com HIV 1&2 Ab/P24 Ag 4thGn HHV-6 (PCR) Ref Lab Test Result 12/17/21 12/17/21 12/22/21 08:32 08:32 14:57 WBC 6.8 RBC 4.29 L Hgb 12.6 L Hct 37.5 L MCV 87.4 MCH 29.4 MCHC 33.6 RDW 14.0 Plt Count 274 MPV 8.7 L Immature Gran % (Auto) 0.4 Neut % (Auto) 74.9 H Lymph % (Auto) 14.5 L [place] % (Auto) 8.5 Eos % (Auto) 1.3 Baso % (Auto) 0.4 Lymph # (Auto) 1.0 L [place] # (Auto) 0.6 Eos # (Auto) 0.1 Baso # (Auto) 0.0 Abs Immat Gran (auto) 0.03 Absolute Neuts (auto) 5.1 Absolute Nucleated RBC 0.000 Nucleated RBC % (auto) 0.0 ESR PT INR APTT D-Dimer High Sensitivty Sodium Potassium Chloride Carbon Dioxide Anion Gap BUN Creatinine Estim Creat Clear Calc Estimated GFR Random Glucose Fasting Glucose Estimat Average Glucose Hemoglobin A1c % Uric Acid Calcium Magnesium Total Bilirubin AST ALT Alkaline Phosphatase Ammonia Total Creatine Kinase C-Reactive Protein Total Protein Albumin Ceruloplasmin Triglycerides Cholesterol LDL Cholesterol, Calc HDL Cholesterol Vitamin B12 Folate TSH Free T4 Total Testosterone 474 Fr Testosterone Dialys 38.4 Random Cortisol Urine Color Urine Appearance Urine pH Ur Specific [place] Urine Protein Urine Glucose (UA) Urine Ketones Urine Blood Urine Nitrite Ur Leukocyte Esterase CSF Tube Number CSF Volume CSF Appearance CSF Color CSF WBC CSF RBC CSF Lymphocytes CSF Appearance (b) CSF Glucose CSF Total Protein CSF Lyme IgG (Immblot) CSF Lyme IgG Bands Det CSF Lyme IgM (Immblot) CSF Lyme IgM Bands Det CSF C.neoform/gat PCR CSF CMV DNA (PCR) CSF Enterovirus (PCR) CSF E. coli K1 (PCR) CSF H. influenzae (PCR) CSF HSV I (PCR) CSF HSV II (PCR) CSF L.monocytogenes PCR CSF N. meningitidis PCR CSF Parechovirus (PCR) CSF S. agalactiae (PCR) CSF S. pneumoniae (PCR) CSF VZV (PCR) Ur Arsenic 24 Hour Urine Cadmium 24 Hour Serum Copper Ur Total Volume Ur Copper 24 Hr Urine Lead 24 Hour Urine Mercury 24 Hour Zinc Rheumatoid Factor TRENT Screen TRENT Titer TRENT Titer 2 TRENT Titer 3 TRENT Pattern TRENT Pattern 2 TRENT Pattern 3 Anti-ds DNA Titer (Crith) Anti-ds DNA (Crithidia) T.pallidum Ab (EIA) Lyme Screen IgG & IgM Lyme Progressive Test COVID-19 ([facility]) COVID-19 Clin Com HIV 1&2 Ab/P24 Ag 4thGn Nonreactive HHV-6 (PCR) Ref Lab Test Result 12/22/21 12/22/21 12/25/21 14:57 18:18 08:08 WBC RBC Hgb Hct MCV MCH MCHC RDW Plt Count MPV Immature Gran % (Auto) Neut % (Auto) Lymph % (Auto) [place] % (Auto) Eos % (Auto) Baso % (Auto) Lymph # (Auto) [place] # (Auto) Eos # (Auto) Baso # (Auto) Abs Immat Gran (auto) Absolute Neuts (auto) Absolute Nucleated RBC Nucleated RBC % (auto) ESR PT INR APTT D-Dimer High Sensitivty Sodium 135 Potassium 4.0 Chloride 98 Carbon Dioxide 30 H Anion Gap 11 L BUN 14 Creatinine 0.98 Estim Creat Clear Calc 100.6 Estimated GFR > 60 Random Glucose 114 Fasting Glucose Estimat Average Glucose Hemoglobin A1c % Uric Acid 4.2 Calcium 9.4 Magnesium Total Bilirubin 0.4 AST 13 ALT 24 Alkaline Phosphatase 91 D Ammonia Total Creatine Kinase C-Reactive Protein Total Protein 6.1 L Albumin 4.1 Ceruloplasmin Triglycerides Cholesterol LDL Cholesterol, Calc HDL Cholesterol Vitamin B12 Folate TSH Free T4 Total Testosterone Fr Testosterone Dialys Random Cortisol Urine Color YELLOW Urine Appearance CLEAR Urine pH 7.0 Ur Specific [place] 1.015 Urine Protein NEG Urine Glucose (UA) NEG Urine Ketones NEG Urine Blood NEG Urine Nitrite NEG Ur Leukocyte Esterase NEG CSF Tube Number CSF Volume CSF Appearance CSF Color CSF WBC CSF RBC CSF Lymphocytes CSF Appearance (b) CSF Glucose CSF Total Protein CSF Lyme IgG (Immblot) CSF Lyme IgG Bands Det CSF Lyme IgM (Immblot) CSF Lyme IgM Bands Det CSF C.neoform/gat PCR CSF CMV DNA (PCR) CSF Enterovirus (PCR) CSF E. coli K1 (PCR) CSF H. influenzae (PCR) CSF HSV I (PCR) CSF HSV II (PCR) CSF L.monocytogenes PCR CSF N. meningitidis PCR CSF Parechovirus (PCR) CSF S. agalactiae (PCR) CSF S. pneumoniae (PCR) CSF VZV (PCR) Ur Arsenic 24 Hour Urine Cadmium 24 Hour Serum Copper Ur Total Volume Ur Copper 24 Hr Urine Lead 24 Hour Urine Mercury 24 Hour Zinc Rheumatoid Factor TRENT Screen TRENT Titer TRENT Titer 2 TRENT Titer 3 TRENT Pattern TRENT Pattern 2 TRENT Pattern 3 Anti-ds DNA Titer (Crith) Anti-ds DNA (Crithidia) T.pallidum Ab (EIA) Lyme Screen IgG & IgM Lyme Progressive Test COVID-19 ([facility]) COVID-19 Clin Com HIV 1&2 Ab/P24 Ag 4thGn HHV-6 (PCR) Ref Lab Test Result 12/27/21 12/27/21 12/27/21 08:00 08:00 08:11 WBC RBC Hgb Hct MCV MCH MCHC RDW Plt Count MPV Immature Gran % (Auto) Neut % (Auto) Lymph % (Auto) [place] % (Auto) Eos % (Auto) Baso % (Auto) Lymph # (Auto) [place] # (Auto) Eos # (Auto) Baso # (Auto) Abs Immat Gran (auto) Absolute Neuts (auto) Absolute Nucleated RBC Nucleated RBC % (auto) ESR PT 12.1 INR 1.1 APTT 38.5 H D-Dimer High Sensitivty Sodium Potassium Chloride Carbon Dioxide Anion Gap BUN Creatinine Estim Creat Clear Calc Estimated GFR Random Glucose Fasting Glucose Estimat Average Glucose Hemoglobin A1c % Uric Acid Calcium Magnesium Total Bilirubin AST ALT Alkaline Phosphatase Ammonia Total Creatine Kinase C-Reactive Protein Total Protein Albumin Ceruloplasmin Triglycerides Cholesterol LDL Cholesterol, Calc HDL Cholesterol Vitamin B12 Folate TSH Free T4 Total Testosterone Fr Testosterone Dialys Random Cortisol Urine Color Urine Appearance Urine pH Ur Specific [place] Urine Protein Urine Glucose (UA) Urine Ketones Urine Blood Urine Nitrite Ur Leukocyte Esterase CSF Tube Number CSF Volume CSF Appearance CSF Color CSF WBC CSF RBC CSF Lymphocytes CSF Appearance (b) CSF Glucose CSF Total Protein CSF Lyme IgG (Immblot) CSF Lyme IgG Bands Det CSF Lyme IgM (Immblot) CSF Lyme IgM Bands Det CSF C.neoform/gat PCR CSF CMV DNA (PCR) CSF Enterovirus (PCR) CSF E. coli K1 (PCR) CSF H. influenzae (PCR) CSF HSV I (PCR) CSF HSV II (PCR) CSF L.monocytogenes PCR CSF N. meningitidis PCR CSF Parechovirus (PCR) CSF S. agalactiae (PCR) CSF S. pneumoniae (PCR) CSF VZV (PCR) Ur Arsenic 24 Hour <10 Urine Cadmium 24 Hour <0.5 Serum Copper Ur Total Volume 1300 Ur Copper 24 Hr 9 L Urine Lead 24 Hour <10 Urine Mercury 24 Hour <4 Zinc Rheumatoid Factor TRENT Screen TRENT Titer TRENT Titer 2 TRENT Titer 3 TRENT Pattern TRENT Pattern 2 TRENT Pattern 3 Anti-ds DNA Titer (Crith) Anti-ds DNA (Crithidia) T.pallidum Ab (EIA) Lyme Screen IgG & IgM Lyme Progressive Test COVID-19 ([facility]) COVID-19 Clin Com HIV 1&2 Ab/P24 Ag 4thGn HHV-6 (PCR) Ref Lab Test Result 12/27/21 12/27/21 12/27/21 08:11 08:11 08:11 WBC RBC Hgb Hct MCV MCH MCHC RDW Plt Count 244 MPV Immature Gran % (Auto) Neut % (Auto) Lymph % (Auto) [place] % (Auto) Eos % (Auto) Baso % (Auto) Lymph # (Auto) [place] # (Auto) Eos # (Auto) Baso # (Auto) Abs Immat Gran (auto) Absolute Neuts (auto) Absolute Nucleated RBC Nucleated RBC % (auto) ESR 13 PT INR APTT D-Dimer High Sensitivty Sodium Potassium Chloride Carbon Dioxide Anion Gap BUN Creatinine Estim Creat Clear Calc Estimated GFR Random Glucose Fasting Glucose Estimat Average Glucose Hemoglobin A1c % Uric Acid Calcium Magnesium Total Bilirubin AST ALT Alkaline Phosphatase Ammonia Total Creatine Kinase 38 C-Reactive Protein Total Protein Albumin Ceruloplasmin Triglycerides Cholesterol LDL Cholesterol, Calc HDL Cholesterol Vitamin B12 Folate TSH Free T4 Total Testosterone Fr Testosterone Dialys Random Cortisol Urine Color Urine Appearance Urine pH Ur Specific [place] Urine Protein Urine Glucose (UA) Urine Ketones Urine Blood Urine Nitrite Ur Leukocyte Esterase CSF Tube Number CSF Volume CSF Appearance CSF Color CSF WBC CSF RBC CSF Lymphocytes CSF Appearance (b) CSF Glucose CSF Total Protein CSF Lyme IgG (Immblot) CSF Lyme IgG Bands Det CSF Lyme IgM (Immblot) CSF Lyme IgM Bands Det CSF C.neoform/gat PCR CSF CMV DNA (PCR) CSF Enterovirus (PCR) CSF E. coli K1 (PCR) CSF H. influenzae (PCR) CSF HSV I (PCR) CSF HSV II (PCR) CSF L.monocytogenes PCR CSF N. meningitidis PCR CSF Parechovirus (PCR) CSF S. agalactiae (PCR) CSF S. pneumoniae (PCR) CSF VZV (PCR) Ur Arsenic 24 Hour Urine Cadmium 24 Hour Serum Copper Ur Total Volume Ur Copper 24 Hr Urine Lead 24 Hour Urine Mercury 24 Hour Zinc Rheumatoid Factor < 15.0 TRENT Screen TRENT Titer TRENT Titer 2 TRENT Titer 3 TRENT Pattern TRENT Pattern 2 TRENT Pattern 3 Anti-ds DNA Titer (Crith) Anti-ds DNA (Crithidia) T.pallidum Ab (EIA) Lyme Screen IgG & IgM Lyme Progressive Test COVID-19 ([facility]) COVID-19 Clin Com HIV 1&2 Ab/P24 Ag 4thGn HHV-6 (PCR) Ref Lab Test Result 12/27/21 12/27/21 12/27/21 08:11 08:11 08:11 WBC RBC Hgb Hct MCV MCH MCHC RDW Plt Count MPV Immature Gran % (Auto) Neut % (Auto) Lymph % (Auto) [place] % (Auto) Eos % (Auto) Baso % (Auto) Lymph # (Auto) [place] # (Auto) Eos # (Auto) Baso # (Auto) Abs Immat Gran (auto) Absolute Neuts (auto) Absolute Nucleated RBC Nucleated RBC % (auto) ESR PT INR APTT D-Dimer High Sensitivty Sodium Potassium Chloride Carbon Dioxide Anion Gap BUN Creatinine Estim Creat Clear Calc Estimated GFR Random Glucose Fasting Glucose Estimat Average Glucose Hemoglobin A1c % Uric Acid Calcium Magnesium Total Bilirubin AST ALT Alkaline Phosphatase Ammonia Total Creatine Kinase C-Reactive Protein Total Protein Albumin Ceruloplasmin 34 Triglycerides Cholesterol LDL Cholesterol, Calc HDL Cholesterol Vitamin B12 Folate TSH Free T4 Total Testosterone Fr Testosterone Dialys Random Cortisol Urine Color Urine Appearance Urine pH Ur Specific [place] Urine Protein Urine Glucose (UA) Urine Ketones Urine Blood Urine Nitrite Ur Leukocyte Esterase CSF Tube Number CSF Volume CSF Appearance CSF Color CSF WBC CSF RBC CSF Lymphocytes CSF Appearance (b) CSF Glucose CSF Total Protein CSF Lyme IgG (Immblot) CSF Lyme IgG Bands Det CSF Lyme IgM (Immblot) CSF Lyme IgM Bands Det CSF C.neoform/gat PCR CSF CMV DNA (PCR) CSF Enterovirus (PCR) CSF E. coli K1 (PCR) CSF H. influenzae (PCR) CSF HSV I (PCR) CSF HSV II (PCR) CSF L.monocytogenes PCR CSF N. meningitidis PCR CSF Parechovirus (PCR) CSF S. agalactiae (PCR) CSF S. pneumoniae (PCR) CSF VZV (PCR) Ur Arsenic 24 Hour Urine Cadmium 24 Hour Serum Copper Ur Total Volume Ur Copper 24 Hr Urine Lead 24 Hour Urine Mercury 24 Hour Zinc Rheumatoid Factor TRENT Screen TRENT Titer TRENT Titer 2 TRENT Titer 3 TRENT Pattern TRENT Pattern 2 TRENT Pattern 3 Anti-ds DNA Titer (Crith) TNP Anti-ds DNA (Crithidia) Negative T.pallidum Ab (EIA) Lyme Screen IgG & IgM <0.90 Lyme Progressive Test TNP COVID-19 (HOLLI) COVID-19 Clin Com HIV 1&2 Ab/P24 Ag 4thGn HHV-6 (PCR) Ref Lab Test Result 12/27/21 12/27/21 12/27/21 08:11 13:50 13:50 WBC RBC Hgb Hct MCV MCH MCHC RDW Plt Count MPV Immature Gran % (Auto) Neut % (Auto) Lymph % (Auto) [place] % (Auto) Eos % (Auto) Baso % (Auto) Lymph # (Auto) [place] # (Auto) Eos # (Auto) Baso # (Auto) Abs Immat Gran (auto) Absolute Neuts (auto) Absolute Nucleated RBC Nucleated RBC % (auto) ESR PT INR APTT D-Dimer High Sensitivty Sodium Potassium Chloride Carbon Dioxide Anion Gap BUN Creatinine Estim Creat Clear Calc Estimated GFR Random Glucose Fasting Glucose Estimat Average Glucose Hemoglobin A1c % Uric Acid Calcium Magnesium Total Bilirubin AST ALT Alkaline Phosphatase Ammonia Total Creatine Kinase C-Reactive Protein Total Protein Albumin Ceruloplasmin Triglycerides Cholesterol LDL Cholesterol, Calc HDL Cholesterol Vitamin B12 Folate TSH Free T4 Total Testosterone Fr Testosterone Dialys Random Cortisol Urine Color Urine Appearance Urine pH Ur Specific [place] Urine Protein Urine Glucose (UA) Urine Ketones Urine Blood Urine Nitrite Ur Leukocyte Esterase CSF Tube Number CSF Volume CSF Appearance CSF Color CSF WBC CSF RBC CSF Lymphocytes CSF Appearance (b) CSF Glucose CSF Total Protein CSF Lyme IgG (Immblot) CSF Lyme IgG Bands Det CSF Lyme IgM (Immblot) CSF Lyme IgM Bands Det CSF C.neoform/gat PCR Not Detected CSF CMV DNA (PCR) Not Detected CSF Enterovirus (PCR) Not Detected CSF E. coli K1 (PCR) Not Detected CSF H. influenzae (PCR) Not Detected CSF HSV I (PCR) Not Detected CSF HSV II (PCR) Not Detected CSF L.monocytogenes PCR Not Detected CSF N. meningitidis PCR Not Detected CSF Parechovirus (PCR) Not Detected CSF S. agalactiae (PCR) Not Detected CSF S. pneumoniae (PCR) Not Detected CSF VZV (PCR) Not Detected Ur Arsenic 24 Hour Urine Cadmium 24 Hour Serum Copper 154 Ur Total Volume Ur Copper 24 Hr Urine Lead 24 Hour Urine Mercury 24 Hour Zinc Rheumatoid Factor TRENT Screen TRENT Titer TRENT Titer 2 TRENT Titer 3 TRENT Pattern TRENT Pattern 2 TRENT Pattern 3 Anti-ds DNA Titer (Crith) Anti-ds DNA (Crithidia) T.pallidum Ab (EIA) Lyme Screen IgG & IgM Lyme Progressive Test COVID-19 ([facility]LLI) COVID-19 Clin Com HIV 1&2 Ab/P24 Ag 4thGn HHV-6 (PCR) Not Detected Ref Lab Test Result See Note 12/27/21 12/27/21 12/27/21 13:50 13:50 13:50 WBC RBC Hgb Hct MCV MCH MCHC RDW Plt Count MPV Immature Gran % (Auto) Neut % (Auto) Lymph % (Auto) [place] % (Auto) Eos % (Auto) Baso % (Auto) Lymph # (Auto) [place] # (Auto) Eos # (Auto) Baso # (Auto) Abs Immat Gran (auto) Absolute Neuts (auto) Absolute Nucleated RBC Nucleated RBC % (auto) ESR PT INR APTT D-Dimer High Sensitivty Sodium Potassium Chloride Carbon Dioxide Anion Gap BUN Creatinine Estim Creat Clear Calc Estimated GFR Random Glucose Fasting Glucose Estimat Average Glucose Hemoglobin A1c % Uric Acid Calcium Magnesium Total Bilirubin AST ALT Alkaline Phosphatase Ammonia Total Creatine Kinase C-Reactive Protein Total Protein Albumin Ceruloplasmin Triglycerides Cholesterol LDL Cholesterol, Calc HDL Cholesterol Vitamin B12 Folate TSH Free T4 Total Testosterone Fr Testosterone Dialys Random Cortisol Urine Color Urine Appearance Urine pH Ur Specific [place] Urine Protein Urine Glucose (UA) Urine Ketones Urine Blood Urine Nitrite Ur Leukocyte Esterase CSF Tube Number 1 4 CSF Volume 4.0 CSF Appearance CLEAR CSF Color COLORLESS CSF WBC 1 CSF RBC 0 CSF Lymphocytes 100 CSF Appearance (b) Clear, Colorless CSF Glucose 57 CSF Total Protein 39.8 CSF Lyme IgG (Immblot) NO BANDS DETECTED CSF Lyme IgG Bands Det TNP CSF Lyme IgM (Immblot) NO BANDS DETECTED CSF Lyme IgM Bands Det TNP CSF C.neoform/gat PCR CSF CMV DNA (PCR) CSF Enterovirus (PCR) CSF E. coli K1 (PCR) CSF H. influenzae (PCR) CSF HSV I (PCR) CSF HSV II (PCR) CSF L.monocytogenes PCR CSF N. meningitidis PCR CSF Parechovirus (PCR) CSF S. agalactiae (PCR) CSF S. pneumoniae (PCR) CSF VZV (PCR) Ur Arsenic 24 Hour Urine Cadmium 24 Hour Serum Copper Ur Total Volume Ur Copper 24 Hr Urine Lead 24 Hour Urine Mercury 24 Hour Zinc Rheumatoid Factor TRENT Screen TRENT Titer TRENT Titer 2 TRENT Titer 3 TRENT Pattern TRENT Pattern 2 TRENT Pattern 3 Anti-ds DNA Titer (Crith) Anti-ds DNA (Crithidia) T.pallidum Ab (EIA) Lyme Screen IgG & IgM Lyme Progressive Test COVID-19 ([facility]) COVID-19 Clin Com HIV 1&2 Ab/P24 Ag 4thGn HHV-6 (PCR) Ref Lab Test Result 12/29/21 12/29/21 01/04/22 07:18 07:18 08:12 WBC RBC Hgb Hct MCV MCH MCHC RDW Plt Count MPV Immature Gran % (Auto) Neut % (Auto) Lymph % (Auto) [place] % (Auto) Eos % (Auto) Baso % (Auto) Lymph # (Auto) [place] # (Auto) Eos # (Auto) Baso # (Auto) Abs Immat Gran (auto) Absolute Neuts (auto) Absolute Nucleated RBC Nucleated RBC % (auto) ESR PT INR APTT D-Dimer High Sensitivty Sodium Potassium Chloride Carbon Dioxide Anion Gap BUN Creatinine Estim Creat Clear Calc Estimated GFR Random Glucose Fasting Glucose Estimat Average Glucose Hemoglobin A1c % Uric Acid Calcium Magnesium Total Bilirubin AST ALT Alkaline Phosphatase Ammonia 26 Total Creatine Kinase C-Reactive Protein Total Protein Albumin 3.7 Ceruloplasmin Triglycerides Cholesterol LDL Cholesterol, Calc HDL Cholesterol Vitamin B12 Folate TSH Free T4 Total Testosterone Fr Testosterone Dialys Random Cortisol 18.3 Urine Color Urine Appearance Urine pH Ur Specific [place] Urine Protein Urine Glucose (UA) Urine Ketones Urine Blood Urine Nitrite Ur Leukocyte Esterase CSF Tube Number CSF Volume CSF Appearance CSF Color CSF WBC CSF RBC CSF Lymphocytes CSF Appearance (b) CSF Glucose CSF Total Protein CSF Lyme IgG (Immblot) CSF Lyme IgG Bands Det CSF Lyme IgM (Immblot) CSF Lyme IgM Bands Det CSF C.neoform/gat PCR CSF CMV DNA (PCR) CSF Enterovirus (PCR) CSF E. coli K1 (PCR) CSF H. influenzae (PCR) CSF HSV I (PCR) CSF HSV II (PCR) CSF L.monocytogenes PCR CSF N. meningitidis PCR CSF Parechovirus (PCR) CSF S. agalactiae (PCR) CSF S. pneumoniae (PCR) CSF VZV (PCR) Ur Arsenic 24 Hour Urine Cadmium 24 Hour Serum Copper Ur Total Volume Ur Copper 24 Hr Urine Lead 24 Hour Urine Mercury 24 Hour Zinc Rheumatoid Factor TRENT Screen TRENT Titer TRENT Titer 2 TRENT Titer 3 TRENT Pattern TRENT Pattern 2 TRENT Pattern 3 Anti-ds DNA Titer (Crith) Anti-ds DNA (Crithidia) T.pallidum Ab (EIA) Lyme Screen IgG & IgM Lyme Progressive Test COVID-19 (OHLLI) COVID-19 Clin Com HIV 1&2 Ab/P24 Ag 4thGn HHV-6 (PCR) Ref Lab Test Result 01/04/22 01/28/22 01/28/22 08:12 11:08 11:08 WBC 4.0 L RBC 4.84 Hgb 13.6 L Hct 41.8 L MCV 86.4 MCH 28.1 MCHC 32.5 RDW 14.0 Plt Count 170 D MPV 9.6 Immature Gran % (Auto) 0.5 H Neut % (Auto) 67.6 Lymph % (Auto) 22.6 [place] % (Auto) 7.0 Eos % (Auto) 1.8 Baso % (Auto) 0.5 Lymph # (Auto) 0.9 L [place] # (Auto) 0.3 Eos # (Auto) 0.1 Baso # (Auto) 0.0 Abs Immat Gran (auto) 0.02 Absolute Neuts (auto) 2.7 Absolute Nucleated RBC 0.000 Nucleated RBC % (auto) 0.0 ESR PT INR APTT D-Dimer High Sensitivty Sodium 143 Potassium 4.2 Chloride 107 Carbon Dioxide 29 Anion Gap 11 L BUN 18 H Creatinine 1.12 Estim Creat Clear Calc 79.8 Estimated GFR > 60 Random Glucose 99 Fasting Glucose Estimat Average Glucose Hemoglobin A1c % Uric Acid Calcium 9.3 Magnesium Total Bilirubin 0.3 AST 8 ALT 7 Alkaline Phosphatase 69 D Ammonia Total Creatine Kinase C-Reactive Protein Total Protein 5.9 L Albumin 3.8 Ceruloplasmin Triglycerides Cholesterol LDL Cholesterol, Calc HDL Cholesterol Vitamin B12 Folate TSH Free T4 Total Testosterone Fr Testosterone Dialys Random Cortisol Urine Color Urine Appearance Urine pH Ur Specific [place] Urine Protein Urine Glucose (UA) Urine Ketones Urine Blood Urine Nitrite Ur Leukocyte Esterase CSF Tube Number CSF Volume CSF Appearance CSF Color CSF WBC CSF RBC CSF Lymphocytes CSF Appearance (b) CSF Glucose CSF Total Protein CSF Lyme IgG (Immblot) CSF Lyme IgG Bands Det CSF Lyme IgM (Immblot) CSF Lyme IgM Bands Det CSF C.neoform/gat PCR CSF CMV DNA (PCR) CSF Enterovirus (PCR) CSF E. coli K1 (PCR) CSF H. influenzae (PCR) CSF HSV I (PCR) CSF HSV II (PCR) CSF L.monocytogenes PCR CSF N. meningitidis PCR CSF Parechovirus (PCR) CSF S. agalactiae (PCR) CSF S. pneumoniae (PCR) CSF VZV (PCR) Ur Arsenic 24 Hour Urine Cadmium 24 Hour Serum Copper Ur Total Volume Ur Copper 24 Hr Urine Lead 24 Hour Urine Mercury 24 Hour Zinc 64 Rheumatoid Factor TRENT Screen TRENT Titer TRENT Titer 2 TRENT Titer 3 TRENT Pattern TRENT Pattern 2 TRENT Pattern 3 Anti-ds DNA Titer (Crith) Anti-ds DNA (Crithidia) T.pallidum Ab (EIA) Lyme Screen IgG & IgM Lyme Progressive Test COVID-19 ([facility]I) COVID-19 Clin Com HIV 1&2 Ab/P24 Ag 4thGn HHV-6 (PCR) Ref Lab Test Result 01/29/22 01/29/22 01/29/22 08:08 08:08 09:08 WBC RBC Hgb Hct MCV MCH MCHC RDW Plt Count MPV Immature Gran % (Auto) Neut % (Auto) Lymph % (Auto) [place] % (Auto) Eos % (Auto) Baso % (Auto) Lymph # (Auto) [place] # (Auto) Eos # (Auto) Baso # (Auto) Abs Immat Gran (auto) Absolute Neuts (auto) Absolute Nucleated RBC Nucleated RBC % (auto) ESR PT INR APTT D-Dimer High Sensitivty Sodium Potassium Chloride Carbon Dioxide Anion Gap BUN Creatinine Estim Creat Clear Calc Estimated GFR Random Glucose Fasting Glucose Estimat Average Glucose 97 Hemoglobin A1c % 5.0 Uric Acid Calcium Magnesium Total Bilirubin AST ALT Alkaline Phosphatase Ammonia Total Creatine Kinase C-Reactive Protein Total Protein Albumin Ceruloplasmin Triglycerides 116 Cholesterol 222 D LDL Cholesterol, Calc 170 HDL Cholesterol 29 Vitamin B12 Folate TSH Free T4 Total Testosterone Fr Testosterone Dialys Random Cortisol Urine Color Urine Appearance Urine pH Ur Specific [place] Urine Protein Urine Glucose (UA) Urine Ketones Urine Blood Urine Nitrite Ur Leukocyte Esterase CSF Tube Number CSF Volume CSF Appearance CSF Color CSF WBC CSF RBC CSF Lymphocytes CSF Appearance (b) CSF Glucose CSF Total Protein CSF Lyme IgG (Immblot) CSF Lyme IgG Bands Det CSF Lyme IgM (Immblot) CSF Lyme IgM Bands Det CSF C.neoform/gat PCR CSF CMV DNA (PCR) CSF Enterovirus (PCR) CSF E. coli K1 (PCR) CSF H. influenzae (PCR) CSF HSV I (PCR) CSF HSV II (PCR) CSF L.monocytogenes PCR CSF N. meningitidis PCR CSF Parechovirus (PCR) CSF S. agalactiae (PCR) CSF S. pneumoniae (PCR) CSF VZV (PCR) Ur Arsenic 24 Hour Urine Cadmium 24 Hour Serum Copper Ur Total Volume Ur Copper 24 Hr Urine Lead 24 Hour Urine Mercury 24 Hour Zinc Rheumatoid Factor TRENT Screen TRENT Titer TRENT Titer 2 TRENT Titer 3 TRENT Pattern TRENT Pattern 2 TRENT Pattern 3 Anti-ds DNA Titer (Crith) Anti-ds DNA (Crithidia) T.pallidum Ab (EIA) Lyme Screen IgG & IgM Lyme Progressive Test COVID-19 ([facility]LLI) Negative COVID-19 Clin Com See Note HIV 1&2 Ab/P24 Ag 4thGn HHV-6 (PCR) Ref Lab Test Result 02/04/22 09:55 WBC RBC Hgb Hct MCV MCH MCHC RDW Plt Count MPV Immature Gran % (Auto) Neut % (Auto) Lymph % (Auto) [place] % (Auto) Eos % (Auto) Baso % (Auto) Lymph # (Auto) [place] # (Auto) Eos # (Auto) Baso # (Auto) Abs Immat Gran (auto) Absolute Neuts (auto) Absolute Nucleated RBC Nucleated RBC % (auto) ESR PT INR APTT D-Dimer High Sensitivty Sodium 140 Potassium 4.0 Chloride 104 Carbon Dioxide 30 H Anion Gap 10 L BUN 14 Creatinine 1.04 Estim Creat Clear Calc 86.0 Estimated GFR > 60 Random Glucose 101 Fasting Glucose Estimat Average Glucose Hemoglobin A1c % Uric Acid Calcium 9.0 Magnesium 2.1 Total Bilirubin 0.6 AST 7 ALT 9 Alkaline Phosphatase 61 Ammonia Total Creatine Kinase C-Reactive Protein Total Protein 5.3 L Albumin 3.6 Ceruloplasmin Triglycerides Cholesterol LDL Cholesterol, Calc HDL Cholesterol Vitamin B12 Folate TSH Free T4 Total Testosterone Fr Testosterone Dialys Random Cortisol Urine Color Urine Appearance Urine pH Ur Specific [place] Urine Protein Urine Glucose (UA) Urine Ketones Urine Blood Urine Nitrite Ur Leukocyte Esterase CSF Tube Number CSF Volume CSF Appearance CSF Color CSF WBC CSF RBC CSF Lymphocytes CSF Appearance (b) CSF Glucose CSF Total Protein CSF Lyme IgG (Immblot) CSF Lyme IgG Bands Det CSF Lyme IgM (Immblot) CSF Lyme IgM Bands Det CSF C.neoform/gat PCR CSF CMV DNA (PCR) CSF Enterovirus (PCR) CSF E. coli K1 (PCR) CSF H. influenzae (PCR) CSF HSV I (PCR) CSF HSV II (PCR) CSF L.monocytogenes PCR CSF N. meningitidis PCR CSF Parechovirus (PCR) CSF S. agalactiae (PCR) CSF S. pneumoniae (PCR) CSF VZV (PCR) Ur Arsenic 24 Hour Urine Cadmium 24 Hour Serum Copper Ur Total Volume Ur Copper 24 Hr Urine Lead 24 Hour Urine Mercury 24 Hour Zinc Rheumatoid Factor TRENT Screen TRENT Titer TRENT Titer 2 TRENT Titer 3 TRENT Pattern TRENT Pattern 2 TRENT Pattern 3 Anti-ds DNA Titer (Crith) Anti-ds DNA (Crithidia) T.pallidum Ab (EIA) Lyme Screen IgG & IgM Lyme Progressive Test COVID-19 ([facility]I) COVID-19 Clin Com HIV 1&2 Ab/P24 Ag 4thGn HHV-6 (PCR) Ref Lab Test Result Airway Mallampati Class: II TM Dist: >3cm Neck ROM: Full Heart: rrr Lungs: cta Assessment and Plan Assessment Anesthesia Assessment: Anesthesia Plan Discussed and Chart Reviewed Final Anesthetic Review Family History of Problems with Anesthesia: No History of Problems with Anesthesia: No NPO: Yes ASA Class: III Final Preanesthetic Review: No Changes in Pt Med Stat, Meds/Allgs Chart Reviewed and Consent Obtained/Reviewed Patient Risk: Intermediate Procedure Risk: Intermediate Anesthetic Plan Anesthetic Plan: GA Disposition: Standard PACU
--- NOTE | 2022-02-13 08:29 | HO.ECTPROC ---
ECT Procedure Note Diagnosis/Treatment Date of Service: 02/13/22 Diagnosis: Major Depressive Disorder Previous ECT Date: 02/11/22 Current Treatment Number: 7 Treatment: Series Interval Clinical Notes: Pt with much weaver affect no c/o side effects ECT Settings Device: THYMATRON DGx Electrode Placement: Right Unilateral Program/Pulse Width: 0.50 Energy Percent: 60 Seizure Duration By EEG (in seconds): 32 Medications Administration General Anesthetic: Etomidate (16) Muscle Relaxant: Succinylcholine (100) Ancillary Medications Anti-emetics: Zofran - Pre ECT Cardiovascular Medications: Glycopyrrolate (0.2) Miscillaneous Medications: Propofol (30) and Midazolam (2) Airway Management Airway Management: Bag Mask Ventilation Treatment Recommendations Electrode Placement: Right Unilateral Program/Pulse Width: 0.50 Energy Percent: 100 Notes: had post bradycardia in 30 s brief had glyco pretx anesthesia suggests giving glyco during sz or could use atropine pretx Pt Tolerated Procedure w/o Issue: Yes
[2022-02-13] MEDS: risperiDONE 1 MG TABLET PO ×2 (09:45→20:43)
[2022-02-13] MEDS: amantadine HCL 100 MG CAPSULE PO ×2 (09:45→20:43)
[2022-02-13] MEDS: polyethylene glycoL 3350 17 GM POWD.PACK PO (09:45)
[2022-02-13] MEDS: Sucralfate 1 GM TABLET PO ×3 (09:45→20:43)
[2022-02-13] MEDS: DULoxetine HCl 30 MG CAPSULE.DR PO (09:45)
--- NOTE | 2022-02-13 17:47 | HO.PSYCHPN ---
Subjective Subjective Date of Service: 02/13/22 Reason For Visit: unspecified bipolar and related d/o Interim History: ECT tolerated. Pt particiated in milieu after treatment. Today, reflected upon his admission- I cannot believe you all were right-I thought I would never get out of here alive. Reports feeling well. Reflected today about the time he has missed with his children and . Encouraged to pace himself when at home, and risk of becoming overwhelmed. Medication Compliance: Yes Side effects from medications: No Attending Groups: Yes Review of Systems Acute medical concerns: No Medical Review of Systems: unchanged Review of Systems Psychiatric: Reports no additional psychiatric complaints and Reports anxiety Mental Status Exam Mental Status Exam Narrative: Patient Appearance:?Appropriate Patient Orientation:?Person, Place, Time and Situation Level of Consciousness:?Alert Patient Behavior:?Appropriate, Talkative, Cooperative and Good Eye Contact Mood Description:?Anxious and Apprehensive Affect Description:?Apprehensive Patient Cognition Impaired:?No Ability to Follow Directions:?Good Speech Pattern:?Spontaneous Speech Memory Description:?Episodic Impaired Hallucinations:?None Delusions:?Not Present Thought Process:?Intact Thought Content:?positive for Intact Depressive Symptoms:?Increased Anxiety Judgement:?Fair Diagnostics Vital Signs (24Hr): Vital Signs - 24 hr 02/12/22 19:30 02/13/22 06:00 02/13/22 06:22 Temperature 98.3 F 98.0 F 98.0 F Pulse Rate 82 60 60 Respiratory Rate 16 16 Blood Pressure 97/58 L 111/63 111/63 Pulse Oximetry 97 97 02/13/22 07:02 02/13/22 08:36 02/13/22 08:41 Temperature 98.2 F 98.2 F Pulse Rate 66 85 78 Respiratory Rate 16 16 19 Blood Pressure 116/77 112/68 113/73 Pulse Oximetry 96 97 98 02/13/22 08:46 02/13/22 08:51 02/13/22 09:06 Temperature 97.5 F 97.4 F Pulse Rate 79 71 87 Respiratory Rate 22 H 19 18 Blood Pressure 126/76 126/81 121/74 Pulse Oximetry 98 98 97 02/13/22 09:21 02/13/22 09:51 02/13/22 11:22 Temperature 97.4 F 98.4 F 97.8 F Pulse Rate 81 71 81 Respiratory Rate 18 16 Blood Pressure 119/74 103/57 L 97/56 L Pulse Oximetry 97 95 02/13/22 17:25 Temperature 97.6 F Pulse Rate 78 Respiratory Rate 16 Blood Pressure 119/76 Pulse Oximetry 99 BMI result Body Mass Index 27.3 Labs Results: 01/28/22 11:08 02/04/22 09:55 Imaging Radiology Impressions: ITS Impressions Foot X-Ray 11/08/21 17:32 IMPRESSION: Tiny Achilles heel spur. Otherwise unremarkable appearance of the left foot. Cervical Spine X-Ray 11/22/21 14:50 IMPRESSION: No fracture or malalignment. Mild degenerative changes. Forearm X-Ray 11/22/21 14:50 IMPRESSION: No acute fractures or malalignment within the imaged left upper extremity. Hip X-Ray 11/22/21 14:50 IMPRESSION: No acute fractures or malalignment. Humerus X-Ray 11/22/21 14:50 IMPRESSION: No acute fractures or malalignment within the imaged left upper extremity. Shoulder X-Ray 11/22/21 14:50 IMPRESSION: No acute fractures or malalignment within the imaged left upper extremity. Head CT 12/22/21 16:42 IMPRESSION: No acute intracranial pathology. Hand X-Ray 12/25/21 08:38 IMPRESSION: No soft tissue foreign body seen. Brain MRI 12/25/21 09:20 IMPRESSION: No acute intracranial findings. No acute infarcts. There is mild chronic microangiopathy. No pathologic enhancement. Lumbar Puncture Fluoroscopy 12/27/21 14:00 IMPRESSION: Successful ultrasound-guided lumbar puncture performed without immediate complications. Barium Swallow X-Ray 01/10/22 08:29 IMPRESSION: Unremarkable barium swallow in upright and supine position. Occasional secondary and tertiary peristalsis seen in mid and distal esophagus with solid foot but no obstruction.. Medications Medications Current Medications Amantadine HCl (Amantadine Hcl 100 Mg Capsule) 100 mg PO BID [facility] Last Admin: 02/13/22 09:45 Dose: 100 mg Documented by: Duloxetine HCl (Duloxetine Hcl 30 Mg Capsule.) 30 mg PO DAILY [facility] Last Admin: 02/13/22 09:45 Dose: 30 mg Documented by: Ferrous Sulfate (Ferrous Sulfate 324 Mg Tablet.) 324 mg PO BEDTIME [facility] Last Admin: 02/12/22 20:53 Dose: 324 mg Documented by: Lactated Ringer's (Lr) 1,000 mls @ 50 mls/hr IVCONT .Q20H [facility] Last Admin: 02/13/22 10:59 Dose: Not Given Documented by: Ibuprofen (Ibuprofen 800 Mg Tablet) 800 mg PO Q8H PRN PRN Reason: Pain, Mild (Pain Scale 1-3) Polyethylene Glycol (Polyethylene Glycol 3350 17 Gm Powd.Pack) 17 gm PO DAILY [facility] Last Admin: 02/13/22 09:45 Dose: 17 gm Documented by: Psyllium Hydrophilic Mucilloid (Psyllium Seed 3.4 Gm Powd.Pack) 3.4 gm PO BEDTIME [facility] Last Admin: 02/12/22 20:55 Dose: Not Given Documented by: Risperidone (Risperidone 1 Mg Tablet) 1 mg PO BID [facility] Last Admin: 02/13/22 09:45 Dose: 1 mg Documented by: Sucralfate (Sucralfate 1 Gm Tablet) 1 gm PO TID [facility] Last Admin: 02/13/22 14:08 Dose: 1 gm Documented by: Allergies Allergies Allergy/AdvReac Type Severity Reaction Status Date / Time No Known Allergies Allergy Unverified 11/07/21 21:23 Assessment & Plan Assessment & Plan (1) MDD (major depressive disorder), recurrent, severe, with psychosis: Status: Acute Code(s): F33.3 - Major depressive disorder, recurrent, severe with psychotic symptoms (2) Encephalopathy chronic: Status: Acute Code(s): G93.49 - Other encephalopathy Plan Remains depressed, anergic, unable to make a clear decision/choice. HCP activated, today, pt able to give SSN for court paperwork Continue Cymbalta, Risperdal, Sertraline Work with pt, , team to move forward with plan of care- prepare for ECT Pt completed barium swallow- results negative 01/11/22 Increase Risperdal to 2 mg bid 01/12/2022 Patient seen extensively reviewed diagnosis expectation for treatment with ECT risks benefits alternatives and lack of response to medication. Also reviewed patient's medical history that there is does not appear to be any other etiology to his condition. Again reviewed ECT procedure continues to have difficulty with decision making in taking information 01/14/22 Support, educate, prepare for HCP affirmation-ECT 01/16/22 Increase Cymbalta to 60 mg daily Discontinue Sertraline 01/17/22 Decrease Cymbalta to 30 mg daily-Gerry is planning on beginning to refuse meds, will taper back slowly should he choose tapering. 01/19/22: no change to the above 01/20/22: no change 01/21/22: Anticipating court validation of HCP with increase in fear, anxiety and resulting anger. States he plans to refuse medications-dose of Cymbalta decreased to prepare to manage SE, however, pt is compliant with regime at this time. 01/23/22: Continue current plan Offer support, answer questions, address concerns, attempt to manage pt's anxiety regarding treatment 01/24/22: Court hearing 01/25/22. Offer support to pt. Continue current medications-pt has not refused his regime he reports today. 01/25/22: Discussed with team-Initial planning with Gerry and his to address negative emotions surrounding treatment and outcome so we may help Gerry move toward his recovery in a positive frame of reference. 01/26 no changes to current tx regimen 01/27 no changes to current tx regimen 01/28/22: Medical clearance for tentative ECT on 01/30/22. 01/29/22: Prepare for ECT on 01/30/22. Today, pt continues to decline further education and support 01/30/22: Continue current plan of care 01/31/22: Continue current plan of care, appears improved. 02/01/22: ECT#2. Significant improvement, possible hypomania. Discussed with Dr. Inman. We will discontinue Cymbalta for a time to prevent promotion of [place] 02/02/2022: Continue current regimen and treatment and continuation of ECT. No changes were made today 02/03/2022: Continue current regimen and plans. Continue ECT. Safety checks were changed to every 15 minutes 02/04/22: Continue current plan. Monitor for hypomania. 02/05/22: No hypomania observed today. ECT 02/06/22. 02/06/22: Discharge planning with pt and family. 02/07/22: ECT 02/08. Continue current plan of care. 02/08/22: ECT scheduled for 3 sessions next week. Tentative discharge next Friday if plan remains on course and pt continues to improve. 02/09/22: Pt reports overall benefit on ECT 02/10/22: discussed PHP, OP therapy 02/11/22: Continue current plan of care 02/13/22: Discharge/Transition to OP care on 02/15. I spent minutes with the patient and/or on the patient floor today, greater than?50% of which was spent counseling/coordinating care. Patient educated on: diagnosis, medication risk/benefits and therapeutic strategies Informed Consent: understands Reason for contiued inpatient stay Substantial Risk for: inability to function and rapid decompensation
[2022-02-13] MEDS: Ferrous Sulfate 324 MG TABLET.DR PO (20:43)
[2022-02-14 06:42] VITALS: BP 91/60; PULSE 65; RESP 18; TEMP 36.1; O2SAT 95
[2022-02-14] MEDS: risperiDONE 1 MG TABLET PO (08:00)
[2022-02-14] MEDS: DULoxetine HCl 30 MG CAPSULE.DR PO (08:00)
[2022-02-14] MEDS: amantadine HCL 100 MG CAPSULE PO (08:00)
[2022-02-14] MEDS: Sucralfate 1 GM TABLET PO ×2 (08:00→14:07)
[2022-02-14] MEDS: polyethylene glycoL 3350 17 GM POWD.PACK PO (08:01)
--- NOTE | 2022-02-14 12:19 | P.DS_ITS ---
DS: Providers Provider Date of Service: 02/14/22 Date of admission: 11/07/21 19:48 Date of discharge: 02/14/22 Primary care physician: Ama Kilgore DO Admitting clinician: Gia Hurtado Attending physician on admission: Gia Hurtado Attending physician on discharge: Miranda Mueller Discharging clinician: Miranda Mueller DS: Diagnosis Discharge Diagnosis (1) MDD (major depressive disorder), recurrent, severe, with psychosis: Status: Acute (2) Encephalopathy chronic: Status: Resolved DS: Medications Discharge Medications Home Medications: Previous Rx's Medication Instructions Recorded amantadine HCl 100 mg capsule 100 mg PO BID #60 cap 02/14/22 duloxetine 30 mg capsule,delayed 30 mg PO DAILY #30 cap 02/14/22 release ferrous sulfate 324 mg (65 mg 324 mg PO BEDTIME #30 tab 02/14/22 iron) tablet,delayed release polyethylene glycol 3350 17 gram 17 g PO DAILY #100 ea 02/14/22 oral powder packet psyllium husk (aspartame) 3.4 gram 3.4 g PO BEDTIME #44 ea 02/14/22 oral powder packet (Metamucil Fiber Singles) risperidone 1 mg tablet 1 mg PO BID #60 tab 02/14/22 sucralfate 1 gram tablet 1 g PO TID #90 tab 02/14/22 Mental Status Exam Mental Status Exam Narrative: Patient Appearance:?Appropriate Patient Orientation:?Person, Place, Time and Situation Level of Consciousness:?Alert Patient Behavior:?Appropriate, Talkative, Cooperative and Good Eye Contact Mood Description:?Anxious and Apprehensive Affect Description:?Apprehensive Patient Cognition Impaired:?No Ability to Follow Directions:?Good Speech Pattern:?Spontaneous Speech Memory Description:?Episodic Impaired Hallucinations:?None Delusions:?Not Present Thought Process:?Intact Thought Content:?positive for Intact Depressive Symptoms:?Increased Anxiety Judgement:?Fair Data Data Completed and Pending Completed studies during hospitalization [Text1]: 12/27/21 13:50 Cerebrospinal Fluid Gram Stain - Final 12/27/21 13:50 Cerebrospinal Fluid CSF Examination - Final 12/27/21 13:50 Cerebrospinal Fluid Fluid Description - Final 12/27/21 13:50 Cerebrospinal Fluid CSF Culture - Final No growth after 3 days. Imaging Diagnostic Imaging Impressions Foot X-Ray 11/08/21 17:32 IMPRESSION: Tiny Achilles heel spur. Otherwise unremarkable appearance of the left foot. Cervical Spine X-Ray 11/22/21 14:50 IMPRESSION: No fracture or malalignment. Mild degenerative changes. Forearm X-Ray 11/22/21 14:50 IMPRESSION: No acute fractures or malalignment within the imaged left upper extremity. Hip X-Ray 11/22/21 14:50 IMPRESSION: No acute fractures or malalignment. Humerus X-Ray 11/22/21 14:50 IMPRESSION: No acute fractures or malalignment within the imaged left upper extremity. Shoulder X-Ray 11/22/21 14:50 IMPRESSION: No acute fractures or malalignment within the imaged left upper extremity. Head CT 12/22/21 16:42 IMPRESSION: No acute intracranial pathology. Hand X-Ray 12/25/21 08:38 IMPRESSION: No soft tissue foreign body seen. Brain MRI 12/25/21 09:20 IMPRESSION: No acute intracranial findings. No acute infarcts. There is mild chronic microangiopathy. No pathologic enhancement. Lumbar Puncture Fluoroscopy 12/27/21 14:00 IMPRESSION: Successful ultrasound-guided lumbar puncture performed without immediate complications. Barium Swallow X-Ray 01/10/22 08:29 IMPRESSION: Unremarkable barium swallow in upright and supine position. Occasional secondary and tertiary peristalsis seen in mid and distal esophagus with solid foot but no obstruction.. DS: Summary Hospital Course Hospital Course: Admission to adult psychiatry to address symptoms of severe, recurrent, major depression, with psychosis which was treatment resistant. 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 Of note, pt believes he had COVID in October of 2020. Symptoms of depression began ~ June 2021 and were not responsive to out pt psychopharmacological interventions. Pt was convinced he had a terminal medical illness. System review and extensive medical work up was completed which were negative for pathology. Pt believed he had esophageal cancer (as his mother of this years before). Evaluation for this was negative as well. Medication trials were unsuccessful and pt required hospitalization from 11/08/21 to 02/14/22. HCP was activated and validated by the courts and a series of ECT was initiated by Dr. Inman. Pt exhibited improvement on the first treatment and will continue out patient ECT upon discharge. He will continue with Dr. Inman for out patient psychopharmacology. Time spent discussing smoking cessation with patient: 3 to 10 minutes Status at Discharge Functional status at discharge: independent ambulation Overall status at discharge: patient is progressing back to baseline Time Spent with Patient Time attestation: Total time spent providing and/or coordinating discharge services: 35 Time spent: Greater than 30 minutes Discharge Plan Discharge Patient Disposition: Home, Self-Care Discharge Diagnosis: Recurrent major depression, severe, with psychotic features Referrals: Diana Montiel [Other] - 02/19/22 10:00 am (Initial diagnostic evaluation with Therapist Appointment by tele-health. Patient will check email for link to appointment.) Lloyd Inman MD [Physician] - 03/04/22 11:30 am Ama Vasques DO [Primary Care Provider] - 02/22/22 12:20 pm ([facility] OFFICE ASSISTANT) Discharge Medications: New ferrous sulfate 324 mg (65 mg iron) Tablet,Delayed Release (Dr/Ec) 324 mg PO BEDTIME Qty: 30 0RF polyethylene glycol 3350 17 gram Powder In Packet 17 g PO DAILY Qty: 100 0RF amantadine HCl 100 mg Capsule 100 mg PO BID Qty: 60 0RF risperidone 1 mg Tablet 1 mg PO BID Qty: 60 0RF duloxetine 30 mg Capsule,Delayed Release(Dr/Ec) 30 mg PO DAILY Qty: 30 0RF Metamucil Fiber Singles 3.4 gram Powder In Packet 3.4 g PO BEDTIME Qty: 44 0RF sucralfate 1 gram Tablet 1 g PO TID Qty: 90 0RF Discontinued acetaminophen [Acetaminophen Extra Strength] 500 mg tablet 500 mg PO Q6-8H PRN (Reason: Pain) 0RF Discharge Orders: Discharge Order (Routine); Ordered 02/14/22 Ordered By: Miranda Mueller Diet: advance to usual diet Activity on Discharge: As tolerated Stand Alone Forms: Patient Portal Discharge page, Community Support Care Plan Goals: Mood stabilization Health Concerns: Recurrent major depression, severe with psychotic features Plan of Treatment: Out patient ECT Friday, February 18, 2022 Sunday, February 27, 2022 Attend scheduled appointments and ECT dates Take medications as directed Assessment: non-suicidal, non-psychotic Gerry is excited to return to home and family Discharge Date/Time: 02/14/22 17:14
== END 2022-02-14 17:14 | disposition home or self-care (01) | DRG 751 ==
PROVIDERS: Psychiatry & Neurology Psychiatry; Radiology Diagnostic Radiology; Registered Nurse; Admitting Provider Psychiatry & Neurology Psychiatry; PCP Internal Medicine; Visit Provider Clinical Nurse Specialist Psychiatric/Mental Health, Adult
PROC: 009U3ZZ Drainage of Spinal Canal, Percutaneous Approach (ICD-10-PCS; CPT 62270; principal; 2021-12-27 14:00)
PROC: GZB4ZZZ Other Electroconvulsive Therapy (ICD-10-PCS; CPT 90870; principal; 2022-01-30 15:00)
PROC: (CPT 90870; principal; 2022-02-08 07:00)
DX: F33.3 Major depressive disorder, recurrent, severe with psychotic symptoms (principal); G93.49 Other encephalopathy; D64.9 Anemia, unspecified; I10 Essential (primary) hypertension; K21.9 Gastro-esophageal reflux disease without esophagitis; Z56.0 Unemployment, unspecified; Z80.0 Family history of malignant neoplasm of digestive organs; Z20.822 Contact with and (suspected) exposure to COVID-19; Z79.899 Other long term (current) drug therapy
CPT/HCPCS: 36415; 62328; 70450; 70553; 72040; 73030; 73060; 73090; 73120; 73502; 73620; 74220; 80048; 80053; 80061; 81003; 82040; 82140; 82175; 82300; 82390; 82525; 82533; 82550; 82607; 82746; 82945; 83036; 83655; 83735; 83825; 84157; 84402; 84403; 84439; 84443; 84550; 84630; 85025; 85049; 85379; 85610; 85652; 85730; 86038; 86039; 86140; 86255; 86431; 86617; 86618; 86780; 87015; 87070; 87205; 87389; 87483; 87635; 89051; 90870; 93005; 95816; J0330; J1650; J1885; J2250; J2405

== ENCOUNTER 2022-02-18 11:59 | Day surgery (SDC) | payer OTHER, SELFPAY ==
[2022-02-18] VITALS (7 sets, daily range): BP systolic 112–135; BP diastolic 74–90; PULSE 71–93; RESP 14–20; TEMP 36.1–36.8; O2SAT 96–99; BMI 27.1
[2022-02-18 12:17] LABS: COVID-19 Test Negative (Negative)
--- NOTE | 2022-02-18 12:28 | P.CONAN_ITS ---
[facility] Active Problems Active Problems: All Active Problems (Updated 01/29/22 @ 16:28 by Ethan Guidry MD) Constipation (Acute) Pre-op exam (Acute) Encephalopathy chronic (Acute) Paronychia of finger of left hand (Acute) MDD (major depressive disorder), recurrent, severe, with psychosis (Acute) Routine medical exam (Acute) Past Medical History Medical History Gram-negative bacteremia Family History Family history of problems with anesthesia: No Surgical History History of Problems with Anesthesia: No Social History Social History Household Members: Spouse and Children Household Members Other:: and Three Children ages 11, 13, 15 Housing: House Do you presently have visiting nurse or other home services: No Patient Tobacco Use Status: Never used Tobacco Advance Directives: No Advance Directives Information Provided: Yes service: No ([employer] [id number]') Sexual orientation: Straight/Heterosexual Meds Allergies Allergy/AdvReac Type Severity Reaction Status Date / Time No Known Allergies Allergy Unverified 11/07/21 21:23 Exam Exam Date and Time: February 18, 2022 1228 Pertinent Lab Results Pertinent Lab Results: Laboratory Tests 02/18/22 12:05 COVID-19 ([facility]) Negative COVID-19 Clin Com See Note Airway Mallampati Class: II TM Dist: >3cm Neck ROM: Full Heart: rrr Lungs: cta Assessment and Plan Assessment Anesthesia Assessment: Anesthesia Plan Discussed and Chart Reviewed Final Anesthetic Review Family History of Problems with Anesthesia: No History of Problems with Anesthesia: No NPO: Yes ASA Class: III Final Preanesthetic Review: No Changes in Pt Med Stat, Meds/Allgs Chart Reviewed and Consent Obtained/Reviewed Patient Risk: Intermediate Procedure Risk: Intermediate Anesthetic Plan Anesthetic Plan: GA Disposition: Standard PACU
--- NOTE | 2022-02-18 13:03 | MHC.SHP ---
Pre-Procedural Eval Section A Date of Service: 02/18/22 Changes since office visit: Yes Patient answered all questions; No Cold of Flu in the past 2 weeks, No New Medical Problems and No Changes in Medication The History & Physical has been completed within 30 days and I have reviewed it.: Yes Section B Chief Complaint: depression Allergies: Allergies Allergy/AdvReac Type Severity Reaction Status Date / Time No Known Allergies Allergy Unverified 11/07/21 21:23 Plan I have reviewed the history and physical and performed a pertinent physical examination on my patient. No changes have occurred unless specified.
--- NOTE | 2022-02-18 13:03 | HO.ECTPROC ---
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 feels streseed ECT Settings Device: THYMATRON DGx Electrode Placement: Right Unilateral Program/Pulse Width: 0.50 Energy Percent: 80 Seizure Duration By EEG (in seconds): 96 Medications Administration General Anesthetic: Etomidate (16) Muscle Relaxant: Succinylcholine (100) Ancillary Medications Anti-emetics: Zofran - Pre ECT Cardiovascular Medications: Glycopyrrolate Miscillaneous Medications: Propofol (30 plus 30) and Midazolam (2mg ) Airway Management Airway Management: Bag Mask Ventilation Treatment Recommendations Electrode Placement: Right Unilateral Program/Pulse Width: 0.50 Energy Percent: 60 Notes: some sedation post tx Pt Tolerated Procedure w/o Issue: Yes
== END 2022-02-18 15:24 | disposition home or self-care (01) ==
PROVIDERS: Psychiatry & Neurology Psychiatry; PCP Internal Medicine; Visit Provider Psychiatry & Neurology Psychiatry
PROC: (CPT 90870; principal; 2022-02-18 15:30)
DX: F33.3 Major depressive disorder, recurrent, severe with psychotic symptoms (principal); Z73.3 Stress, not elsewhere classified; G93.40 Encephalopathy, unspecified; Z20.822 Contact with and (suspected) exposure to COVID-19
CPT/HCPCS: 87635; 90870; J0330; J2250; J2405

== ENCOUNTER 2022-02-27 05:56 | Day surgery (SDC) | payer OTHER, SELFPAY ==
[2022-02-27 06:33] VITALS: BP 142/99; PULSE 65; RESP 18; TEMP 36.3; O2SAT 98; BMI 33.9
[2022-02-27 06:35] LABS: COVID-19 Test Negative (Negative)
--- NOTE | 2022-02-27 07:41 | HO.ANESPROP2 ---
[facility] Active Problems Active Problems: All Active Problems (Updated 02/22/22 @ 00:03 by Tammy Christie) MDD (major depressive disorder), recurrent, severe, with psychosis (Acute) Past Medical History Medical History Gram-negative bacteremia Family History Family history of problems with anesthesia: No Surgical History History of Problems with Anesthesia: No Social History Social History Household Members: Spouse and Children Household Members Other:: and Three Children ages 11, 13, 15 Housing: House Do you presently have visiting nurse or other home services: No Patient Tobacco Use Status: Never used Tobacco Advance Directives: No Advance Directives Information Provided: Yes service: No ([employer] [id number]'s) Sexual orientation: Straight/Heterosexual Meds Allergies Allergy/AdvReac Type Severity Reaction Status Date / Time No Known Allergies Allergy Unverified 11/07/21 21:23 Exam Exam Date and Time: February 27, 2022 0741 Height,Weight and Vital Signs: Height 6 ft Weight 113.398 kg Last Vital Signs Temp 97.4 F 02/27/22 06:33 Pulse 65 02/27/22 06:33 Resp 18 02/27/22 06:33 BP 142/99 H 02/27/22 06:33 Pulse Ox 98 02/27/22 06:33 Pertinent Lab Results Pertinent Lab Results: Laboratory Tests 02/27/22 06:14 COVID-19 ([facility]) Negative COVID-19 Clin Com See Note Airway Mallampati Class: II TM Dist: >3cm Neck ROM: Full Heart: rrr Lungs: cta Assessment and Plan Assessment Anesthesia Assessment: Anesthesia Plan Discussed and Chart Reviewed Final Anesthetic Review Family History of Problems with Anesthesia: No History of Problems with Anesthesia: No NPO: Yes ASA Class: III Final Preanesthetic Review: No Changes in Pt Med Stat, Meds/Allgs Chart Reviewed and Consent Obtained/Reviewed Patient Risk: Intermediate Procedure Risk: Intermediate Anesthetic Plan Anesthetic Plan: GA Disposition: Standard PACU
--- NOTE | 2022-02-27 07:44 | MHC.SHP ---
Pre-Procedural Eval Section A Date of Service: 02/27/22 Changes since office visit: Yes Patient answered all questions; No Cold of Flu in the past 2 weeks, No New Medical Problems and No Changes in Medication The History & Physical has been completed within 30 days and I have reviewed it.: Yes Section B Chief Complaint: depression Allergies: Allergies Allergy/AdvReac Type Severity Reaction Status Date / Time No Known Allergies Allergy Unverified 11/07/21 21:23 Plan I have reviewed the history and physical and performed a pertinent physical examination on my patient. No changes have occurred unless specified.
--- NOTE | 2022-02-27 08:08 | HO.ECTPROC ---
ECT Procedure Note Diagnosis/Treatment Date of Service: 02/27/22 Diagnosis: Major Depressive Disorder Previous ECT Date: 02/20/22 Current Treatment Number: 9 Treatment: Maintenance Interval Clinical Notes: pt has been home improved mood some anxiety no psychosis ECT Settings Device: THYMATRON DGx Program/Pulse Width: 0.50 Energy Percent: 60 Seizure Duration By EEG (in seconds): 88 Medications Administration General Anesthetic: Etomidate (16) Muscle Relaxant: Succinylcholine (120) Ancillary Medications Anti-emetics: Zofran - Pre ECT Cardiovascular Medications: Glycopyrrolate (0.2) Miscillaneous Medications: Propofol (30) Airway Management Airway Management: Bag Mask Ventilation Treatment Recommendations Energy Percent: 35 Notes: f/u ect in 1 week
[2022-02-27 08:15] VITALS: BP 150/72; PULSE 68; RESP 16; TEMP 36.5; O2SAT 100
[2022-02-27 08:20] VITALS: BP 132/93; PULSE 79; RESP 16; O2SAT 100
[2022-02-27 08:30] VITALS: BP 146/86; PULSE 68; RESP 17; O2SAT 98
[2022-02-27 08:45] VITALS: BP 149/90; PULSE 74; RESP 17; O2SAT 97
[2022-02-27 09:00] VITALS: BP 145/94; PULSE 84; RESP 18; TEMP 36.3; O2SAT 100
== END 2022-02-27 09:42 | disposition home or self-care (01) ==
PROVIDERS: PCP Internal Medicine; Visit Provider Psychiatry & Neurology Psychiatry
PROC: (CPT 90870; principal; 2022-02-27 07:00)
DX: F33.3 Major depressive disorder, recurrent, severe with psychotic symptoms (principal); Z20.822 Contact with and (suspected) exposure to COVID-19; Z86.19 Personal history of other infectious and parasitic diseases
CPT/HCPCS: 87635; 90870; J0330; J2250; J2405

== ENCOUNTER 2022-03-06 05:57 | Day surgery (SDC) | payer OTHER, SELFPAY ==
[2022-03-06] VITALS (7 sets, daily range): BP systolic 138–151; BP diastolic 72–94; PULSE 66–89; RESP 12–19; TEMP 36.3–36.9; O2SAT 96–100; BMI 29.2
[2022-03-06 06:35] LABS: COVID-19 Test Negative (Negative); IDNOW Serial# 16C4AD1C
--- NOTE | 2022-03-06 06:52 | MHC.SHP ---
Pre-Procedural Eval Section A Date of Service: 03/06/22 Changes since office visit: Yes Patient answered all questions; No Cold of Flu in the past 2 weeks, No New Medical Problems and No Changes in Medication The History & Physical has been completed within 30 days and I have reviewed it.: Yes Section B Chief Complaint: depression Allergies: Allergies Allergy/AdvReac Type Severity Reaction Status Date / Time No Known Allergies Allergy Unverified 11/07/21 21:23 Plan I have reviewed the history and physical and performed a pertinent physical examination on my patient. No changes have occurred unless specified.
--- NOTE | 2022-03-06 08:01 | HO.ECTPROC ---
ECT Procedure Note Diagnosis/Treatment Date of Service: 03/06/22 Diagnosis: Major Depressive Disorder (with psychosis ) Previous ECT Date: 02/27/22 Current Treatment Number: 10 Treatment: Maintenance Interval Clinical Notes: pt seems much more stable was seen outpt ECT Settings Device: THYMATRON DGx Electrode Placement: Right Unilateral Program/Pulse Width: 0.50 Energy Percent: 50 Seizure Duration By EEG (in seconds): 100 Medications Administration General Anesthetic: Etomidate (16) Muscle Relaxant: Succinylcholine (120) Ancillary Medications Cardiovascular Medications: Glycopyrrolate (0.2) Miscillaneous Medications: Propofol (30 post) Airway Management Airway Management: Bag Mask Ventilation Treatment Recommendations Program/Pulse Width: 0.50 Energy Percent: 20 Pt Tolerated Procedure w/o Issue: Yes
--- NOTE | 2022-03-06 08:13 | P.CONAN_ITS ---
[facility] Active Problems Active Problems: All Active Problems (Updated 02/22/22 @ 00:03 by Tammy Christie) MDD (major depressive disorder), recurrent, severe, with psychosis (Acute) Past Medical History Medical History Gram-negative bacteremia Pre-op exam Routine medical exam Family History Family history of problems with anesthesia: No Surgical History History of Problems with Anesthesia: No Social History Social History Household Members: Spouse and Children Household Members Other:: and Three Children ages 11, 13, 15 Housing: House Do you presently have visiting nurse or other home services: No Patient Tobacco Use Status: Never used Tobacco Advance Directives: No Advance Directives Information Provided: Yes service: No ([employer] [id number]'s) Sexual orientation: Straight/Heterosexual Meds Allergies Allergy/AdvReac Type Severity Reaction Status Date / Time No Known Allergies Allergy Unverified 11/07/21 21:23 Exam Exam Date and Time: March 06, 202213 Height,Weight and Vital Signs: Height 6 ft Weight 97.976 kg Last Vital Signs Temp 98.4 F 03/06/22 08:04 Pulse 83 03/06/22 08:10 Resp 14 03/06/22 08:10 BP 143/80 H 03/06/22 08:10 Pulse Ox 100 03/06/22 08:10 Pertinent Lab Results Pertinent Lab Results: Laboratory Tests 03/06/22 06:14 COVID-19 ([facility]) Negative COVID-19 Clin Com See Note Airway Mallampati Class: III TM Dist: >3cm Neck ROM: Full Loose/Missing/Broken Teeth: No Heart: RRR Lungs: CTA Assessment and Plan Assessment Anesthesia Assessment: Anesthesia Plan Discussed and Chart Reviewed Final Anesthetic Review Family History of Problems with Anesthesia: No History of Problems with Anesthesia: No NPO: Yes ASA Class: II Final Preanesthetic Review: Meds/Allgs Chart Reviewed, Consent Obtained/Reviewed and Anes Risks/Benef Reviewed Patient Risk: Low Procedure Risk: Intermediate Anesthetic Plan Anesthetic Plan: GA Disposition: Standard PACU
[2022-03-06 09:19] LABS: MANUAL DIFF FLAG NO
[2022-03-06 09:25] LABS: Basophils Percent Auto 0.4 % (0-2); Eosinophils Absolute Auto 0.2 X10*3/uL (0.0-0.4); Eosinophils Percent Auto 3.3 % (0-4); Hematocrit 38.4 % (42.0-52.0); Hemoglobin 12.4 g/dl (14.0-18.0); Imm Gran Abs Auto 0.01 X10*3/uL (0.00-0.03); Imm Gran Pct Auto 0.2 % (0.0-0.4); Lymphocytes Absolute Auto 0.9 X10*3/uL (1.2-4.9); Lymphocytes Percent Auto 20.6 % (20-40); Mean Corpuscular HGB Conc 32.3 g/dl (31.0-36.0); Mean Corpuscular Hemoglobin 27.8 pg (27.0-33.0); Mean Corpuscular Volume 86.1 fL (80.0-98.0); Mean Platelet Volume 9.3 fL (9.4-12.4); Monocytes Absolute Auto 0.4 X10*3/uL (0.1-1.2); Monocytes Percent Auto 7.8 % (2-11); Neutrophils Absolute Auto 3.1 x10*3/uL (2.0-8.3); Neutrophils Percent Auto 67.7 % (45-73); Platelet Count 171 X10*3/uL (160-400); Red Blood Count 4.46 X10*6/uL (4.60-5.80); Red Cell Distribution Width 15.2 % (11.0-16.0); White Blood Count 4.5 X10*3/uL (4.8-10.8)
[2022-03-06 09:41] LABS: Estimated Average Glucose 100 mg/dL; Hemoglobin A1c % 5.1 %
[2022-03-06 09:44] LABS: Alanine Aminotransferase 10 U/L (0-40); Albumin Level 3.6 g/dL (3.5-5.0); Alkaline Phosphatase 70 U/L (39-117); Anion Gap 10 (12-20); Aspartate Amino Transferase 10 U/L (5-37); Bilirubin Total 0.4 mg/dL (0.0-1.0); Blood Urea Nitrogen 19 mg/dL (9-16); Calcium 8.8 mg/dL (8.4-10.2); Carbon Dioxide 28 mmol/L (22-29); Chloride 106 mmol/L (96-108); Creatinine Clr Calc Pharmacy 91.5; Estimated Glomerular Filt Rate > 60; Glucose Random 109 mg/dL (60-115); Potassium 4.8 mmol/L (3.3-5.1); Sodium 139 mmol/L (135-145); Total Protein 5.4 g/dL (6.5-8.0)
[2022-03-10 14:17] LABS: Vitamin D 25-OH, D2 <4 ng/mL; Vitamin D 25-OH, D3 18 ng/mL; Vitamin D 25-OH, Total 18 ng/mL (30-100)
== END 2022-03-06 09:45 | disposition home or self-care (01) ==
PROVIDERS: PCP Internal Medicine; Visit Provider Psychiatry & Neurology Psychiatry
PROC: (CPT 90870; principal; 2022-03-06 07:30)
DX: F33.3 Major depressive disorder, recurrent, severe with psychotic symptoms (principal)
CPT/HCPCS: 36415; 80053; 82306; 83036; 85025; 87635; 90870; J0330; J2405

== ENCOUNTER 2022-03-18 05:50 | Day surgery (SDC) | payer OTHER, SELFPAY ==
[2022-03-18] VITALS (7 sets, daily range): BP systolic 118–155; BP diastolic 61–84; PULSE 68–87; RESP 12–20; TEMP 36.4–36.7; O2SAT 96–100; BMI 29.5
--- NOTE | 2022-03-18 06:49 | HO.ANESPROP2 ---
[facility] Active Problems Active Problems: All Active Problems (Updated 02/22/22 @ 00:03 by Tammy Soriano) MDD (major depressive disorder), recurrent, severe, with psychosis (Acute) Past Medical History Medical History Gram-negative bacteremia Pre-op exam Routine medical exam Family History Family history of problems with anesthesia: No Surgical History History of Problems with Anesthesia: No Social History Social History Household Members: Spouse and Children Household Members Other:: and Three Children ages 11, 13, 15 Housing: House Do you presently have visiting nurse or other home services: No Patient Tobacco Use Status: Never used Tobacco Advance Directives: No Advance Directives Information Provided: Yes service: No ([employer] [id number]'s) Sexual orientation: Straight/Heterosexual Meds Allergies Allergy/AdvReac Type Severity Reaction Status Date / Time No Known Allergies Allergy Unverified 11/07/21 21:23 Active Medications: Current Medications Lactated Ringer's (Lr) 1,000 mls @ 50 mls/hr IVCONT .Q20H ANISHA Exam Exam Date and Time: March 18, 2022 0649 Airway Mallampati Class: II TM Dist: >3cm Neck ROM: Full Heart: rrr Lungs: cta Assessment and Plan Assessment Anesthesia Assessment: Anesthesia Plan Discussed and Chart Reviewed Final Anesthetic Review Family History of Problems with Anesthesia: No History of Problems with Anesthesia: No NPO: Yes ASA Class: III Final Preanesthetic Review: No Changes in Pt Med Stat, Meds/Allgs Chart Reviewed and Consent Obtained/Reviewed Patient Risk: Intermediate Procedure Risk: Intermediate Anesthetic Plan Anesthetic Plan: GA Disposition: Standard PACU
[2022-03-18 06:55] LABS: COVID-19 Test Negative (Negative)
--- NOTE | 2022-03-18 07:50 | MHC.SHP ---
Pre-Procedural Eval Section A Date of Service: 03/18/22 Changes since office visit: Yes Patient answered all questions; No Cold of Flu in the past 2 weeks, No New Medical Problems and No Changes in Medication The History & Physical has been completed within 30 days and I have reviewed it.: No Section B Chief Complaint: depression Details of Present Illness: recurrent psychotic depression Relevant Social History: None Present Medications: see Short Stay Collaborative assessment Medical History: Significant History (gerd anemia ) Allergies: Allergies Allergy/AdvReac Type Severity Reaction Status Date / Time No Known Allergies Allergy Unverified 11/07/21 21:23 Review of Systems Sugical H&P ROS: Negative: Cardiovascular, Respiratory and Neurological and Yes, Specify: Psychiatric (mid dysphoria) Exam Surgical H&P Exam: Normal: HEENT, Normal: Heart and Normal: Lungs Plan Diagnosis/Plan: Unchanged I have reviewed the history and physical and performed a pertinent physical examination on my patient. No changes have occurred unless specified.
--- NOTE | 2022-03-18 07:52 | HO.ECTPROC ---
ECT Procedure Note Diagnosis/Treatment Date of Service: 03/18/22 Diagnosis: Major Depressive Disorder Previous ECT Date: 03/06/22 Current Treatment Number: 11 Treatment: Maintenance Interval Clinical Notes: pt generally improved no c/o side effects ECT Settings Device: THYMATRON DGx Electrode Placement: Right Unilateral Program/Pulse Width: 0.50 Energy Percent: 25 Seizure Duration By EEG (in seconds): 126 Medications Administration General Anesthetic: Etomidate (16) Muscle Relaxant: Succinylcholine (120) Ancillary Medications Anti-emetics: Zofran - Pre ECT Cardiovascular Medications: Glycopyrrolate Miscillaneous Medications: Propofol (propofol 30 plus 30) Airway Management Airway Management: Bag Mask Ventilation Treatment Recommendations Electrode Placement: Right Unilateral Energy Percent: 10 Notes: noted vitamin d deficiency start vit d replacement next ect 3 weeks Pt Tolerated Procedure w/o Issue: Yes
--- NOTE | 2022-03-18 09:31 | P.CONAN1_ITS ---
History of Present Illness Consult details Consult date: 03/18/22 Requesting physician: Lloyd Inman Narrative: Gerry is seen today for evaluation of medical optimization for ECT treatment. Gerry was discharged from [facility] 01/2022 and wishes to continue ECT treatments. Medical history is negative except for depression. He reports some depression since discharge and affect is mildly flat post-ECT treatment, but neurologically intact, alert and oriented, and all questions answered appropriately. Review of Systems Review of Systems: Yes all other systems are reviewed and are negative Constitutional: Constitutional: Reports no additional constitutional complaints Eyes: Eyes: Reports no additional eye complaints ENT: Reports system reviewed and no additional complaints, except as documented Cardiovascular: Cardiovascular: Reports no additional cardiovascular complaints Respiratory: Respiratory: Reports no additional respiratory complaints Gastrointestinal: Gastrointestinal: Reports no additional gastrointestinal complaints Musculoskeletal: Musculoskeletal: Reports no additional musculoskeletal complaints Neurologic: Reports system reviewed and no additional complaints, except as documented, Reports as per HPI and Reports Abnormal speech present Psychiatric: Psychiatric: Reports depression Endocrine: Endocrine: Reports no additional endocrine complaints COUNT INCLUDES THE [facility] Past Medical History Medical History (Updated 03/18/22 @ 09:44 by Zenobia De Dios NP) Gram-negative bacteremia MDD (major depressive disorder), recurrent, severe, with psychosis Pre-op exam Routine medical exam Surgical History History of Problems with Anesthesia: No Social History Social History Household Members: Spouse and Children Household Members Other:: and Three Children ages 11, 13, 15 Housing: House Do you presently have visiting nurse or other home services: No Patient Tobacco Use Status: Never used Tobacco service: No ([employer] [id number]'s) Sexual orientation: Straight/Heterosexual Meds Allergies Allergy/AdvReac Type Severity Reaction Status Date / Time No Known Allergies Allergy Unverified 11/07/21 21:23 Active Medications: Current Medications Lactated Ringer's (Lr) 1,000 mls @ 50 mls/hr IVCONT .Q20H ANISHA Physical Exam Vital Signs: Vital Signs: Last Vital Signs Temp 97.9 F 03/18/22 09:03 Pulse 70 03/18/22 09:03 Resp 16 03/18/22 09:03 BP 142/83 H 03/18/22 09:03 Pulse Ox 98 03/18/22 09:03 BMI result Body Mass Index 29.5 Const: General: cooperative, healthy appearing, well developed, alert and awake Orientation/consciousness: patient oriented x3 HEENT: Head: Yes normal to inspection Mouth: Normal oral and palatal mucosa present Eyes: General: appearance normal, both eyes and all related structures Neck: Neck: Yes normal visual inspection and Yes full ROM Chest: Chest palpation & inspection: normal inspection of the chest and normal palpation of entire chest wall Resp: Effort & Inspection: normal respiratory effort, able to speak in complete sentences and abnormal respiratory pattern Auscultation: clear to auscultation bilaterally Cardio: Jugular venous distension: no JVD Palpation: normal PMI Rate: regular rate Rhythm: regular rhythm GI: Inspection: Yes normal to inspection Skin: General skin exam: no rashes or lesions noted Hair: normal Neuro: General: patient oriented x3 Cognition (Neuro): normal cognition Speech: Abnormal speech present Extrem: General: Yes normal to inspection, Yes full ROM and Yes no clubbing, cyanosis or edema Psych: Appearance: grossly normal Mental Status: mental status grossly normal Speech and movement: Normal speech and movement present Affect: Labile affect present Thought process: Normal thought process present Results Labs Labs: Laboratory Tests 03/06/22 03/06/22 09:09 09:09 WBC 4.5 L Hgb 12.4 L Hct 38.4 L Plt Count 171 Sodium 139 Potassium 4.8 Chloride 106 Carbon Dioxide 28 BUN 19 H Creatinine 1.08 Imaging EKG: report reviewed (Sinus rhythm with Premature atrial complexes Otherwise normal ECG When compared with ECG of 17-DEC-2021 11:36, Premature atrial complexes are now Present) Assessment and Plan (1) MDD (major depressive disorder), recurrent, severe, with psychosis: Status: Acute Gerry is medically optimized to continue ECT treatment. No further workup warranted at this time. Procedures Date of Service Date of Service: 03/18/22
--- NOTE | 2022-03-18 09:35 | PC.NURSE ---
PATIENT EVALUATED BY Raj GRANT PRIOR TO DC.
== END 2022-03-18 09:38 | disposition home or self-care (01) ==
PROVIDERS: PCP Internal Medicine; Visit Provider Psychiatry & Neurology Psychiatry
PROC: (CPT 90870; principal; 2022-03-18 08:00)
DX: F33.3 Major depressive disorder, recurrent, severe with psychotic symptoms (principal); Z86.14 Personal history of Methicillin resistant Staphylococcus aureus infection; Z20.822 Contact with and (suspected) exposure to COVID-19
CPT/HCPCS: 87635; 90870; J0330; J2405

== ENCOUNTER 2022-04-17 05:58 | Day surgery (SDC) | payer OTHER, SELFPAY ==
[2022-04-17] VITALS (7 sets, daily range): BP systolic 117–186; BP diastolic 82–106; PULSE 60–108; RESP 16–22; TEMP 36.3–36.7; O2SAT 96–100; BMI 29.8
--- NOTE | 2022-04-17 06:46 | P.CONAN_ITS ---
[facility] Active Problems Active Problems: All Active Problems (Updated 03/18/22 @ 09:44 by Zenobia De Dios NP) MDD (major depressive disorder), recurrent, severe, with psychosis (Acute) Past Medical History Medical History (Updated 03/18/22 @ 09:44 by Zenobia De Dios NP) Gram-negative bacteremia MDD (major depressive disorder), recurrent, severe, with psychosis Pre-op exam Routine medical exam Family History Family history of problems with anesthesia: No Surgical History History of Problems with Anesthesia: No Social History Social History Household Members: Spouse and Children Household Members Other:: and Three Children ages 11, 13, 15 Housing: House Do you presently have visiting nurse or other home services: No Patient Tobacco Use Status: Never used Tobacco Advance Directives: No Advance Directives Information Provided: Yes service: No ([employer] [id number]'s) Sexual orientation: Straight/Heterosexual Meds Allergies Allergy/AdvReac Type Severity Reaction Status Date / Time No Known Allergies Allergy Unverified 11/07/21 21:23 Exam Exam Date and Time: April 17, 2022 0646 Height,Weight and Vital Signs: Height 6 ft Weight 99.79 kg Last Vital Signs Temp 97.3 F 04/17/22 06:44 Pulse 60 04/17/22 06:44 Resp 18 04/17/22 06:44 BP 149/88 H 04/17/22 06:44 Pulse Ox 99 04/17/22 06:44 Airway Mallampati Class: II TM Dist: >3cm Neck ROM: Full Heart: rrr Lungs: cta Assessment and Plan Assessment Anesthesia Assessment: Anesthesia Plan Discussed and Chart Reviewed Final Anesthetic Review Family History of Problems with Anesthesia: No History of Problems with Anesthesia: No NPO: Yes ASA Class: III Final Preanesthetic Review: No Changes in Pt Med Stat, Meds/Allgs Chart Reviewed and Consent Obtained/Reviewed Patient Risk: Intermediate Procedure Risk: Intermediate Anesthetic Plan Anesthetic Plan: GA Disposition: Standard PACU
[2022-04-17 06:48] LABS: COVID-19 Test Negative (Negative)
--- NOTE | 2022-04-17 07:23 | MHC.SHP ---
Pre-Procedural Eval Section A Date of Service: 04/17/22 The patient is an INPATIENT: No Changes since office visit: No Cold of Flu in the past 2 weeks, No New Medical Problems, No Changes in Medication and No Patient answered all questions The History & Physical has been completed within 30 days and I have reviewed it.: Yes Section B Chief Complaint: depression Details of Present Illness: Hx of depression with previous admissions, no new symptoms Relevant Family History (Specify if Yes): No Relevant Social History: None Present Medications: None Medical History: No relevant PMH History of Previous Operations: No relevant previous surgery Allergies: Allergies Allergy/AdvReac Type Severity Reaction Status Date / Time No Known Allergies Allergy Unverified 11/07/21 21:23 Review of Systems Sugical H&P ROS: Negative: Constitution, Cardiovascular, Respiratory, Neurological, Psychiatric, Hem-Onc, Allergic/Immunologic, Gastrointestinal, Genitourinary, Musculoskeletal, Integumentary, Endocrine and Eyes/Ears/Nose/Throat Exam Surgical H&P Exam: Normal: HEENT, Normal: Heart, Normal: Lungs, Normal: Extremities, Normal: Abdomen, Normal: Skin and Normal: Neurological Plan Diagnosis/Plan: Unchanged I have reviewed the history and physical and performed a pertinent physical examination on my patient. No changes have occurred unless specified.
--- NOTE | 2022-04-17 07:28 | HO.ECTPROC ---
ECT Procedure Note Diagnosis/Treatment Date of Service: 04/17/22 Diagnosis: Major Depressive Disorder Previous ECT Date: 03/18/22 Current Treatment Number: 12 Treatment: Maintenance Interval Clinical Notes: The patient reported been asymptomatic. ECT Settings Device: THYMATRON DGx Electrode Placement: Right Unilateral Program/Pulse Width: 0.25 Energy Percent: 15 Seizure Duration By EEG (in seconds): 96 By Motor Observation (in seconds): 56 Medications Administration General Anesthetic: Etomidate (16) Muscle Relaxant: Succinylcholine (100) Ancillary Medications Miscillaneous Medications: Propofol Airway Management Airway Management: Bag Mask Ventilation Treatment Recommendations No Changes Recommended: No change Pt Tolerated Procedure w/o Issue: Yes
== END 2022-04-17 09:28 | disposition home or self-care (01) ==
PROVIDERS: PCP Internal Medicine; Visit Provider Psychiatry & Neurology Psychiatry
PROC: (CPT 90870; principal; 2022-04-17 15:00)
DX: F33.3 Major depressive disorder, recurrent, severe with psychotic symptoms (principal); Z86.19 Personal history of other infectious and parasitic diseases; Z20.822 Contact with and (suspected) exposure to COVID-19
CPT/HCPCS: 87635; 90870; J0330; J2405

== ENCOUNTER → 2022-08-12 14:34 | Outpatient (BNVA) | payer OTHER, SELFPAY | PROVIDERS: PCP Internal Medicine; Visit Provider Psychiatry & Neurology Psychiatry | DX: F33.41 Major depressive disorder, recurrent, in partial remission (principal) | CPT/HCPCS: 90833 ==

== ENCOUNTER → 2022-09-12 14:15 | Outpatient (BNVA) | payer OTHER, SELFPAY | PROVIDERS: PCP Internal Medicine; Visit Provider Psychiatry & Neurology Psychiatry | DX: F33.3 Major depressive disorder, recurrent, severe with psychotic symptoms (principal) | CPT/HCPCS: 90833 ==

== ENCOUNTER → 2022-10-21 10:42 | Outpatient (BNVA) | payer OTHER, SELFPAY | PROVIDERS: PCP Internal Medicine; Visit Provider Psychiatry & Neurology Psychiatry | DX: F32.5 Major depressive disorder, single episode, in full remission (principal) | CPT/HCPCS: 90833 ==

== ENCOUNTER → 2022-12-05 16:30 | Outpatient (BNVA) | payer OTHER, SELFPAY | PROVIDERS: PCP Internal Medicine; Visit Provider Psychiatry & Neurology Psychiatry | DX: F32.5 Major depressive disorder, single episode, in full remission (principal) ==

== ENCOUNTER → 2023-03-13 16:05 | Outpatient (BNVA) | payer OTHER, SELFPAY | PROVIDERS: PCP Internal Medicine; Visit Provider Psychiatry & Neurology Psychiatry | DX: Z13.89 Encounter for screening for other disorder (principal) ==

== ENCOUNTER 2023-10-24 12:33 | Outpatient (AMB) | payer OTHER, SELFPAY ==
--- NOTE | 2024-08-09 09:43 | A.OFFPSYCH_ITS ---
Intake Intake Visit Reasons: depression Allergies No Known Allergies Allergy (Unverified 11/07/21 21:23) Medication List - Last Reconciled 10/24/23 by Lloyd Inman MD duloxetine 60 mg PO DAILY 30 days ergocalciferol (vitamin D2) (Vitamin D2) 1,250 mcg PO QWEEK ferrous sulfate 324 mg PO BEDTIME polyethylene glycol 3350 17 grams PO DAILY psyllium husk (aspartame) 3.4 gram (Metamucil Fiber Singles) 3.4 grams PO BEDTIME sildenafil (Viagra) 25 mg PO DAILY PRN 30 days sucralfate 1 g PO TID HPI- Psychiatric Chief Complaint: depression HPI Narrative: Patient seen psychiatric follow-up. Patient continues to be quite social engaged in his work active and outgoing. No cycling this appears to be his baseline temperament which is more outgoing and has been active in his work. He has felt much more like himself he and his are getting along well Cymbalta 60 mg pt stable doing quite well no psychiatric symptoms physically active mentally and cognitively no concerns Past Psychiatric History: -Denies hx of IPLOC, CCS/ respite, PHP, or OP psych treatment. -Past meds: wellbutrin (took 2 months), then lexapro added (took for 1 month); both prescribed by PCP and pt reported lack of benefit, discontinued per [facility] psych consult. Depakote 500 mg BID (started per psych consult at [facility], ultimately switched to zydis 5 mg QHS due to increased AST and ALT). Ativan 1 mg PRN (prescribed by PCP with good effect). Mental Status Exam Mental Status Exam Narrative: Mental Status Exam Narrative: Appearance: Casually dressed Behavior: Cooperative appropriate psychomotor: Within normal limits Speech: Normal volume and prosody Thought proccess logical and goal-directed Thought content: Future oriented Mood: Euthymic mildly expansive Affect: Appropriate to mood full affect SI:denies HI:denies VH/AH:none Delusions: None Insight/judgment: Good insight and judgment Memory/cog: Intact Assessment and Plan Assessment & Plan (1) Major depression in full remission: Status: Acute Code(s): F32.5 - Major depressive disorder, single episode, in full remission Plan Tapering duloxetine from 60 mg 30 mg. Patient has been stable for an extended period of time patient may have had COVID induced psychiatric illness question past. Of-[place] there versus baseline outgoing temperament. Patient has not had a psychotic symptoms no catatonic symptoms engaging well with others thinking is clear goal-directed active discussed risks benefits alternatives of tapering off of medication gradually versus maintaining a low-dose also discussed benefits potentially of treating sleep apnea. Monitor for possible cycling ? bipolar no clear manic sx Medications: Changed From duloxetine 60 mg PO DAILY 30 days 30 caps 3RF To duloxetine 30 mg PO DAILY 90 caps 1RF Counseling and coordination of Care Details: I spent [] minutes reviewing the record, seeing the patient and documenting in the medical record. Counseling provided to the patient/caregiver as outlined below. Addressed patient/caregiver concerns regarding current medication regime including effective adherence. Addressed patient/caregiver concerns regarding diagnosis and prognosis including accuracy of diagnosis, prognosis over time, impact of diagnosis. Addressed patient/caregiver concerns regarding impact of recent stressors. [facility] Medical History (Updated 08/09/24 @ 09:58 by Lloyd Inman MD) Pre-op exam MDD (major depressive disorder), recurrent, severe, with psychosis Gram-negative bacteremia Routine medical exam Social History Household Members: Spouse and Children Household Members Other:: and Three Children ages 11, 13, 15 Housing: House Do you presently have visiting nurse or other home services: No Patient Tobacco Use Status: Never used Tobacco service: No ([employer] [id number]'s) Sexual orientation: Straight/Heterosexual Social History: Patient was in the [employer]. 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 They have 3 children normally the patient was outgoing and social Substance History: denies alcohol abuse or other substance abuse Trauma History: -Denies Coding Level of Care Code Est Pt Level 4 (47701) Diagnoses Major depression in full remission F32.5
== END 2023-10-24 12:44 | disposition home or self-care (01) ==
LOC: HO.HOP 12:33
PROVIDERS: PCP Internal Medicine; Visit Provider Psychiatry & Neurology Psychiatry
DX: F32.5 Major depressive disorder, single episode, in full remission (principal)
CPT/HCPCS: 99499

== ENCOUNTER → 2023-10-24 12:33 | Outpatient (BNVA) | payer OTHER, SELFPAY | PROVIDERS: PCP Internal Medicine; Visit Provider Psychiatry & Neurology Psychiatry ==

== ENCOUNTER 2024-02-20 12:41 | Outpatient (AMB) | payer OTHER, SELFPAY ==
--- NOTE | 2024-02-20 12:46 | A.OFFPSYCH_ITS ---
Intake Intake Visit Reasons: depression Allergies No Known Allergies Allergy (Unverified 11/07/21 21:23) HPI- Psychiatric Chief Complaint: depression HPI Narrative: Pt seen in f/u mood has been good using cpap feels more energy usually sleep 6-7 hrs patient denies giddiness euphoria hyper activity no clear manic or depressive symptoms his work is going quite well his marriage is going well he has been on Past Psychiatric History: -Denies hx of IPLOC, CCS/ respite, PHP, or OP psych treatment. -Past meds: wellbutrin (took 2 months), then lexapro added (took for 1 month); both prescribed by PCP and pt reported lack of benefit, discontinued per [facility] psych consult. Depakote 500 mg BID (started per psych consult at [facility], ultimately switched to zydis 5 mg QHS due to increased AST and ALT). Ativan 1 mg PRN (prescribed by PCP with good effect). Mental Status Exam Mental Status Exam Narrative: Mental Status Exam Narrative: Appearance: Casually dressed Behavior: Cooperative appropriate psychomotor: Within normal limits Speech: Normal volume and prosody Thought proccess logical and goal-directed Thought content: Future oriented Mood: Euthymic mildly expansive Affect: Appropriate to mood full affect SI:denies HI:denies VH/AH:none Delusions: None Insight/judgment: Good insight and judgment Memory/cog: Intact Assessment and Plan Assessment & Plan (1) Major depression in full remission: Status: Acute Code(s): F32.5 - Major depressive disorder, single episode, in full remission Plan Discussed risks benefits and alternatives Cymbalta lowered to 20 mg patient wishes to try to taper down on duloxetine he has had no breakthrough symptoms has been stable for over a year understand risks benefits of tapering down Medications: New duloxetine 20 mg PO DAILY 30 days 30 caps 3RF duloxetine 20 mg PO DAILY 30 caps 3RF 30 days Discontinued duloxetine Discontinued Reason: Doctor's Order 30 mg PO DAILY 90 caps 1RF Counseling and coordination of Care Details: I spent [] minutes reviewing the record, seeing the patient and documenting in the medical record. Counseling provided to the patient/caregiver as outlined below. Addressed patient/caregiver concerns regarding current medication regime including effective adherence. Addressed patient/caregiver concerns regarding diagnosis and prognosis including accuracy of diagnosis, prognosis over time, impact of diagnosis. Addressed patient/caregiver concerns regarding impact of recent stressors. PFSH Medical History (Updated 10/21/22 @ 10:29 by Lloyd Inman MD) Pre-op exam MDD (major depressive disorder), recurrent, severe, with psychosis Gram-negative bacteremia Routine medical exam Social History Household Members: Spouse and Children Household Members Other:: and Three Children ages 11, 13, 15 Housing: House Do you presently have visiting nurse or other home services: No Patient Tobacco Use Status: Never used Tobacco service: No ([employer] [id number]'s) Sexual orientation: Straight/Heterosexual Social History: Patient was in the [employer]. 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 They have 3 children normally the patient was outgoing and social Substance History: denies alcohol abuse or other substance abuse Trauma History: -Denies Coding Level of Care Code Est Pt Level 4 (75716) Diagnoses Major depression in full remission F32.5
== END 2024-02-20 16:54 | disposition home or self-care (01) ==
LOC: HO.HOP 12:41
PROVIDERS: PCP Internal Medicine; Visit Provider Psychiatry & Neurology Psychiatry
DX: F32.5 Major depressive disorder, single episode, in full remission (principal)
CPT/HCPCS: 99214

== ENCOUNTER → 2024-02-20 12:41 | Outpatient (BNVA) | payer OTHER, SELFPAY | PROVIDERS: PCP Internal Medicine; Visit Provider Psychiatry & Neurology Psychiatry ==